=== PATIENT | female | born 1935 | race Caucasian/White ===

== ENCOUNTER 2017-08-07 15:13 | Observation (INO) | payer MEDICARE, SELFPAY ==
[2017-08-07] VITALS (9 sets, daily range): BP systolic 100–155; BP diastolic 56–88; PULSE 99–134; RESP 16–24; TEMP 36.8; O2SAT 95–100; BMI 36.9
--- NOTE | 2017-08-07 15:25 | DI.RAD.S_ITS ---
PROCEDURE: XR CHEST 1V INDICATIONS: New onset rapid AFib/chest pain TECHNIQUE: One view of the chest was acquired. COMPARISON: None. FINDINGS: Surgical changes and devices: None. Lungs and pleura: No pleural effusions or pneumothorax. Lungs are clear. Mediastinum: Mediastinal contours appear normal. Heart size is normal. Aortic calcifications. Bones and chest wall: No suspicious bony lesions. Overlying soft tissues appear unremarkable. IMPRESSION: 1. No cardiac enlargement. No congestive failure. Dictated by: Jaylen Paredes M.D. on 08/07/2017 at 15:57 Approved by: Jaylen Paredes M.D. on 08/07/2017 at 15:58
[2017-08-07] MEDS: SODIUM CHLORIDE 0.9% 1,000 ML 150 ML IV ×2 (15:34→18:41)
[2017-08-07] MEDS: dilTIAZem 25 MG/5 ML SDV 10 MG IV (15:35)
--- NOTE | 2017-08-07 15:37 | PC.NURSE ---
pt reports chronic sob from pulm fibrosis. no increased in SOB.
[2017-08-07 16:01] LABS: Add Manual Diff / Slide Review NO; Basophils Percent Auto 0.7 % (0-2); Eosinophils Percent Auto 1.3 % (2-4); Hemoglobin 13.5 g/dL (12.0-16.0); Lymphocytes Percent Auto 22.9 % (25-40); Mean Corpuscular HGB Conc 33.6 % (30-36); Mean Corpuscular Hemoglobin 28.5 PG (26-34); Mean Corpuscular Volume 84.8 fL (80-100); Monocytes Percent Auto 8.9 % (3-14); Neutrophils Absolute Auto 7200 /uL (3000-5900); Neutrophils Percent Auto 66.2 % (50-75); Platelet Count 361 X10^3/uL (150-400); Red Blood Cell Count 4.72 X10^6/uL (4.0-5.2); Red Cell Distribution Width 13.9 % (11.6-14.8); White Blood Cell Count 10.8 X10^3/uL (4.5-11.0)
--- NOTE | 2017-08-07 16:04 | ED.ARRPALP ---
HPI - Arrhythmia/Palpitations General Chief Complaint: Arrhythmia/Palpitations Stated Complaint: NOT ABLE TO SEE WELL FAST HEART RATE Time Seen by Provider: 08/07/17 15:16 Source: patient and family Mode of arrival: ambulatory Limitations: no limitations History of Present Illness HPI narrative: Patient presents to the emergency department today with a chief complaint of new onset AFib with RVR as recognized by the outpatient walk-in clinic. She is new to the area and has run out of her chronic pain medication, she has pain in her bilateral lower extremities and has been decreasing her dose of oxycodone. Today she went in to see if she can get her prescription filled and was complaining of some blurred vision. On physical exam the provider noted a rapid irregular heart rate and EKG proved atrial fibrillation with RVR. The patient carries no diagnosis of atrial fibrillation. She is unsure when this started and denies any chest pain, shortness of breath or palpitations. MD complaint: rapid heart beat, palpitations and irregular heart beat Onset (ago): unknown Related Data Home Medications Medication Instructions Recorded Confirmed albuterol sulfate [ProAir HFA] 2 puff INHALATION Q6H 08/07/17 08/07/17 atorvastatin 80 mg PO DAILY 08/07/17 08/07/17 doxepin 100 mg PO BEDTIME 08/07/17 08/07/17 escitalopram oxalate 20 mg PO DAILY 08/07/17 08/07/17 fluticasone [Flovent HFA] 2 puff INHALATION BID 08/07/17 08/07/17 gabapentin 600 mg PO TID 08/07/17 08/07/17 hydrocodone-acetaminophen 1 tab PO Q6H PRN 08/07/17 08/07/17 lubiprostone [Amitiza] 24 mcg PO BID 08/07/17 08/07/17 metoprolol tartrate 25 mg PO BID 08/07/17 08/07/17 omeprazole magnesium [Prilosec OTC] 20 mg PO BID 08/07/17 08/07/17 potassium bicarb-citric acid 25 meq PO DAILY 08/07/17 08/07/17 [Klor-Con/EF] triamterene-hydrochlorothiazid 1 tab PO DAILY 08/07/17 08/07/17 umeclidinium-vilanterol [Anoro 1 inh INHALATION Q24H 08/07/17 08/07/17 Ellipta] zolpidem 5 mg PO BEDTIME 08/07/17 08/07/17 Allergies Allergy/AdvReac Type Severity Reaction Status Date / Time Sulfa (Sulfonamide Allergy Intermediate Rash Verified 08/07/17 15:26 Antibiotics) Review of Systems Review of Systems All systems reviewed & are unremarkable except as noted in HPI and below Constitutional Denies chills, Denies fever(s), Denies lethargy and Denies weakness Eyes Reports change in vision Comments: Blurred vision had improved prior to her arrival ENT Ears, Nose, Mouth, and Throat: Denies change in voice, Denies neck pain and Denies sore throat Cardiovascular Denies chest pain, Denies irregular heart rhythm, Denies lightheadedness, Denies palpitations, Denies dyspnea, Denies dyspnea on exertion and Denies orthopnea Respiratory Denies cough, Denies dyspnea, Denies dyspnea on exertion and Denies wheezing Gastrointestinal Gastrointestinal: Denies abdominal pain, Denies change in bowel habits, Denies diarrhea, Denies nausea and Denies vomiting Genitourinary Denies hematuria, Denies flank pain, Denies urinary incontinence and Denies urinary urgency Musculoskeletal Denies neck pain Comments: Bilateral lower extremity pain Integumentary/Breasts Denies pruritus, Denies erythema, Denies rash and Denies wounds Neurologic Denies confusion, Reports other visual disturbances and Denies weakness Psychiatric Denies anxiety, Denies confusion, Denies depression, Denies homicidal ideation and Denies suicidal ideation Endocrine Denies palpitations Hematologic/Lymphatic Denies easy bruising Allergic/Immunologic Denies wheezing [facility], [facility] Social History Smoking Status: Never smoker Exam Const General: cooperative and well developed Nutritional Appearance: well nourished Orientation: alert, awake, oriented x3 and not confused [facility] Head: normocephalic and atraumatic Ears: external ears normal and TM's normal bilaterally Nose: external nose normal and No nasal discharge Face and sinus: sinuses nontender, face symmetric, no sinus tenderness and No dry mucous membranes Mouth: oral mucosae normal and moist mucous membranes Teeth and gingiva: dentition normal Throat: tonsils normal and uvula midline Neck Neck: normal visual inspection, trachea midline, No lymphadenopathy, No midline deformity and No JVD Lymphatic: No lymphedema Resp Effort & Inspection: normal respiratory effort, able to speak in complete sentences, no respiratory distress and no use of accessory muscles Auscultation: clear to auscultation bilaterally, no rales, no rhonchi and no wheezes Cardio Rate: tachycardic Rhythm: abnormal rhythm GI Inspection: non-distended Palpation: soft, no hepatosplenomegaly, No guarding, No pulsatile mass and No tender Auscultation: normal bowel sounds Back/Spine/Pelvis Back: No CVA tenderness Cervical Spine: cervical ROM normal and No pain with cervical ROM Thoracic/Lumbar Spine: thoracic and lumbar spine normal to inspection Skin General: no rashes or lesions noted, No jaundice and No petechiae Neuro General: alert, awake and oriented x3 Cranial Nerves: CN's II-XI intact bilaterally Cognition: normal cognition Speech: speech normal Gait: normal gait Motor: muscle tone normal throughout Sensory Exam: no sensory deficits noted Coordination: [id number] test normal Psych Appearance: well kempt Mental Status: mental status grossly normal Attitude: cooperative Thought Content: normal and suicidality Judgment: judgment good MDM - Arrhythmia/Palpitations Differential Diagnosis Differential diagnosis: Likely palpitations, artial fibrillation and artial flutter Medical Records Attestation: I reviewed the patient's medical records. Lab Data Attestation: I reviewed the patient's lab results. Result diagrams: 08/07/17 Unknown 08/07/17 Unknown Lab Results 08/07/17 08/07/17 08/07/17 Range/Units Unknown Unknown Unknown WBC 10.8 (4.5-11.0) X10^3/uL RBC 4.72 (4.0-5.2) X10^6/uL Hgb 13.5 (12.0-16.0) g/dL Hct 40.0 (36-46) % MCV 84.8 (80-100) fL MCH 28.5 (26-34) PG MCHC 33.6 (30-36) % RDW 13.9 (11.6-14.8) % Plt Count 361 (150-400) X10^3/uL Neut % (Auto) 66.2 (50-75) % Lymph % (Auto) 22.9 L (25-40) % [place] % (Auto) 8.9 (3-14) % Eos % (Auto) 1.3 L (2-4) % Baso % (Auto) 0.7 (0-2) % Neut # (Auto) 7200 H (8817-5047) /uL Sodium 136 L (137-145) mmol/L Potassium 3.4 (3.4-5.1) mmol/L Chloride 98.0 (98-107) mmol/L Carbon Dioxide 25.0 (22-32) mmol/L BUN 12.0 (7-17) mg/dL Creatinine 1.00 (0.52-1.04) mg/dL Estimated GFR 53.5 L (>60) mL/min BUN/Creatinine Ratio 12.0 (6-22) Glucose 116 H (80-110) mg/dL Calcium 9.7 (8.4-10.2) mg/dL Magnesium 2.1 (1.6-2.3) mg/dL Total Bilirubin 0.6 (0.2-1.3) mg/dL AST 43 H (14-36) IU/L ALT 29 (9-52) IU/L Alkaline Phosphatase 103 (38-126) U/L Total Creatine Kinase 65 (30-135) U/L Troponin I 0.019 (0.01-0.034) ng/mL Total Protein 7.8 (6.3-8.2) g/dL Albumin 4.3 (3.5-5.0) g/dL Globulin 3.5 (1.7-4.1) g/dL Albumin/Globulin Ratio 1.2 (1.0-2.8) Lipase 50 (23-300) U/L TSH 1.85 (0.47-4.68) uIU/mL Thyroxine (T4) 6.35 (5.5-11.0) ug/dL Imaging Data Chest x-ray: Radiologist's impression: PROCEDURE: XR CHEST 1V INDICATIONS: New onset rapid AFib/chest pain TECHNIQUE: One view of the chest was acquired. COMPARISON: None. FINDINGS: Surgical changes and devices: None. Lungs and pleura: No pleural effusions or pneumothorax. Lungs are clear. Mediastinum: Mediastinal contours appear normal. Heart size is normal. Aortic calcifications. Bones and chest wall: No suspicious bony lesions. Overlying soft tissues appear unremarkable. IMPRESSION: 1. No cardiac enlargement. No congestive failure. Dictated by: Jaylen Paredes M.D. on 08/07/2017 at 15:57 Approved by: Jaylen Paredes M.D. on 08/07/2017 at 15:58 ECG Data Attestation: I personally reviewed and interpreted this ECG as follows: Prior ECG tracings: not available for review Interpretation: Atrial fibrillation with rapid rate and occasional PVCs. Rate 122. No ST segmental or T-wave abnormalities consistent with ischemia Course Orders Ordered: ED Orders 08/07/17 15:25 XR chest 1V Stat EKG-12 Lead Stat Sodium Chloride (Normal Saline 0.9%) 1,000 mls @ 150 mls/hr IV CONT JACQUELINE Last Infusion: 08/07/17 17:40 Dose: 150 mls/hr Admin: 08/07/17 15:34 Dose: 150 mls/hr Diltiazem HCl 125 mg/ Dextrose 125 mls @ 5 mls/hr IV Q25H JACQUELINE Discontinued Medications Diltiazem HCl (Cardizem) 10 mg IV NOW ONE Stop: 08/07/17 15:27 Last Admin: 08/07/17 15:35 Dose: 10 mg Diltiazem HCl (Cardizem Cd) 120 mg PO NOW ONE Stop: 08/07/17 17:01 Last Admin: 08/07/17 17:12 Dose: 120 mg Enoxaparin Sodium (Lovenox) 40 mg SUBCUT NOW ONE Stop: 08/07/17 17:52 Reevaluation(s) Reevaluation #1: Patient was given Cardizem 10 mg IV push in had brief resolution of her rapid rate, after her about 20-25 min she started creeping back to the 130s. Oral cardizem had been ordered and on board for 30 minutes but her HR continued to rise and she began to feel unwell. Cardizem drip and decision to admit. Dr. Chen happy to accept. Patient has high CHADsVAsc score and no local physician, she is a poor candidate for discharge. Lovenox ordered. Last Vital Signs Pulse 104 H 08/07/17 16:45 Resp 18 08/07/17 16:45 BP 106/88 H 08/07/17 16:45 Pulse Ox 98 08/07/17 16:45 Discharge Plan Departure Patient Disposition: Admitted As Inpatient Clinical Impression: Rapid atrial fibrillation Admit Date/Time: 08/07/17 17:54 Admit Provider: Carissa Chen
[2017-08-07] MEDS: dilTIAZem CD 120 MG CAP PO (17:12)
--- NOTE | 2017-08-07 17:37 | PC.NURSE ---
IV site on L FA infiltrated. Stopped the infusion and IVL dc'd and ice pack applied.
[2017-08-07 17:48] LABS: Alanine Aminotransferase 29 IU/L (9-52); Albumin 4.3 g/dL (3.5-5.0); Albumin Globulin Ratio 1.2 (1.0-2.8); Alkaline Phosphatase 103 U/L (38-126); Aspartate Aminotransferase 43 IU/L (14-36); Bilirubin Total 0.6 mg/dL (0.2-1.3); Calcium 9.7 mg/dL (8.4-10.2); Creatine Kinase 65 U/L (30-135); Estimated Glomerular Filt Rate 53.5 mL/min (>60); Globulin 3.5 g/dL (1.7-4.1); Glucose 116 mg/dL (80-110); HEMOLYSIS 18 (0-50); Lipase 50 U/L (23-300); Magnesium 2.1 mg/dL (1.6-2.3); Potassium 3.4 mmol/L (3.4-5.1); Sodium 136 mmol/L (137-145); Total Protein 7.8 g/dL (6.3-8.2)
[2017-08-07 17:59] LABS: Troponin I 0.019 ng/mL (0.01-0.034)
--- NOTE | 2017-08-07 18:10 | PC.NURSE ---
Attempted IV start on R arm x2 but unsuccessful.
[2017-08-07 18:11] LABS: T4 Total Thyroxine 6.35 ug/dL (5.5-11.0)
[2017-08-07 18:24] LABS: Thyroid Stimulating Hormone 1.85 uIU/mL (0.47-4.68)
[2017-08-07] MEDS: dilTIAZem 125 MG in DEXTROSE 5 % IN WATER 100 ML IV ×2 (18:40→19:30)
[2017-08-07] MEDS: ENOXAPARIN 40 MG/0.4 ML SYRINGE SUBCUT (18:40)
--- NOTE | 2017-08-07 18:41 | PC.NURSE ---
starting IV Diltiazem after obtaining IV access and IVF of NS at 150ml/hr.
--- NOTE | 2017-08-07 19:03 | PC.NURSE ---
PT transferring with infusing IVF of NS and IV diltiazem drip via IV pump. Pt in NAD at this time and HR ini 110-120's.
--- NOTE | 2017-08-07 19:38 | PC.NURSE ---
[birth year]19- patient received from ER, awake, alert- denies pain. New onset afib- rvr. On Diltiazem infusion @ 5mg/hr- hr 110's. Patient states she has pulmonary fibrosis- short of breath with exertion. States she just moved to this area - MD appt today- noticed visual changes- hr elevated and irregular during appt. sent to ER>
--- NOTE | 2017-08-07 19:45 | CM.MNRNOTE ---
1920- 81yo received from ER with new onset afib-rvr. Patient new to area- at md appt today- c.o visual changes- irregular/tachycardic hr noted- sent to ER. Currently on Diltiazem infusion @ 5mg/hr- hr in the 110's- rate increased to 7.5 mg/hr. bp 140/82. Denies pain- short of breath on exertion- states she has pulmonary fibrosis. chief complaint- hungry. Given light meal.
--- NOTE | 2017-08-07 22:04 | PM.HP.1 ---
History of Present Illness Chief complaint: Rapid Atrial Fibrillation Narrative: SURAJ WEBER is a 81 year old female who has just moved from [facility] to [place] about 10 days ago. She has arthritis in her knees. She recently ran out of her medications. She presented to the [facility] clinic trying to get some pain medications. She was found to have atrial fibrillation with rapid ventricular response. She was subsequently directed to the [facility] Emergency Room. She received IV diltiazem and was started on diltiazem drip. She also received therapeutic dose of Lovenox for anticoagulation. She was subsequently admitted to the intensive care unit. Patient denies chest pain or palpitation. She has been feeling weak in the past 2 days. [facility] Medical History Chronic pain (Acute) Hyperlipidemia (Acute) Hypertension (Acute) Impaired fasting glucose (Acute) Pulmonary fibrosis (Acute) Stroke (Acute) Social History lives independently: Yes marital status: number of children: 2 caregiver/support person: Yes housing: apartment other: Denies alcohol drinking or cigarette smoking. Her son of overdose 1 w Smoking Status: Former smoker Meds Home Medications Medication Instructions Recorded Confirmed Type albuterol sulfate [ProAir HFA] 2 puff INHALATION Q6H 08/07/17 08/07/17 History atorvastatin 80 mg PO DAILY 08/07/17 08/07/17 History doxepin 100 mg PO BEDTIME 08/07/17 08/07/17 History escitalopram oxalate 20 mg PO DAILY 08/07/17 08/07/17 History fluticasone [Flovent HFA] 2 puff INHALATION BID 08/07/17 08/07/17 History gabapentin 600 mg PO TID 08/07/17 08/07/17 History hydrocodone-acetaminophen 1 tab PO Q6H PRN 08/07/17 08/07/17 History lubiprostone [Amitiza] 24 mcg PO BID 08/07/17 08/07/17 History metoprolol tartrate 25 mg PO BID 08/07/17 08/07/17 History omeprazole magnesium [Prilosec OTC] 20 mg PO BID 08/07/17 08/07/17 History potassium bicarb-citric acid 25 meq PO DAILY 08/07/17 08/07/17 History [Klor-Con/EF] triamterene-hydrochlorothiazid 1 tab PO DAILY 08/07/17 08/07/17 History umeclidinium-vilanterol [Anoro 1 inh INHALATION Q24H 08/07/17 08/07/17 History Ellipta] zolpidem 5 mg PO BEDTIME 08/07/17 08/07/17 History Generic Name Dose Route Start Last Admin Trade Name Freq PRN Reason Stop Dose Admin Hydrocodone Bitart/Acetaminophen 1 tab 08/07/17 21:55 Spencer 5/325 PO Q6H PRN Pain, Moderate Atorvastatin Calcium 80 mg 08/08/17 09:00 Lipitor PO DAILY [facility] Diltiazem HCl 180 mg 08/08/17 09:00 Cardizem Cd PO DAILY [facility] Doxepin HCl 100 mg 08/07/17 22:00 Sinequan PO BEDTIME JACQUELINE Escitalopram Oxalate 20 mg 08/08/17 09:00 Lexapro PO DAILY [facility] Fluticasone Propionate 2 puff 08/07/17 22:00 Flovent Hfa INH BID JACQUELINE Gabapentin 600 mg 08/07/17 22:00 Neurontin PO TID JACQUELINE Sodium Chloride 1,000 mls @ 150 mls/hr 08/07/17 15:30 08/07/17 18:41 Normal Saline 0.9% IV 150 mls/hr CONT JACQUELINE Administration Diltiazem HCl 125 mg/ Dextrose 125 mls @ 5 mls/hr 08/07/17 18:00 08/07/17 18:40 IV 5 mls/hr Q25H JACQUELINE Administration Diltiazem HCl 125 mg/ Dextrose 125 mls @ 5 mls/hr 08/07/17 19:30 IV TITRATE JACQUELINE Protocol 5 MG/HR Metoprolol Tartrate 25 mg 08/07/17 22:00 Lopressor PO BID JACQUELINE Non-Formulary Medication 24 mcg 08/07/17 22:00 Lubiprostone [Amitiza] PO BID JACQUELINE Non-Formulary Medication 25 meq 08/08/17 09:00 Potassium Bicarb-Citric Acid [Klor-Con/Ef] PO DAILY JACQUELINE Pantoprazole Sodium 20 mg 08/07/17 22:15 Protonix PO BID JACQUELINE Triamterene/HCTZ 1 tab 08/08/17 09:00 Maxide 37.5/25 PO DAILY [facility] Umeclidinium/Vilanterol 1 puff 08/07/17 22:00 Anoro Ellipta 62.5-25 Mcg Inh INH Q24H JACQUELINE Zolpidem Tartrate 5 mg 08/07/17 22:00 Ambien PO BEDTIME JACQUELINE Allergies Allergy/AdvReac Type Severity Reaction Status Date / Time Sulfa (Sulfonamide Allergy Intermediate Rash Verified 08/07/17 15:26 Antibiotics) Review of Systems Constitutional Comments: No fever chills or sweats Cardiovascular Comments: Denies chest pain or palpitation Respiratory Comments: She does have chronic shortness of breath with dyspnea with minimal physical exertion Gastrointestinal Comments: Denies abdominal pain Genitourinary Comments: No dysuria Musculoskeletal Comments: Chronic bilateral knee pain Exam Vital Signs (past 8 hours): Vital Signs - 8 hr 08/07/17 15:21 08/07/17 15:36 08/07/17 15:40 Temperature Pulse Rate 130 H 134 H 110 H Respiratory Rate 24 16 24 Blood Pressure 123/85 H Blood Pressure [Right Arm] 100/56 L Pulse Oximetry 95 95 08/07/17 16:15 08/07/17 16:45 08/07/17 18:30 Temperature Pulse Rate 99 H 104 H 121 H Respiratory Rate 18 18 20 Blood Pressure Blood Pressure [Right Arm] 102/67 106/88 H 121/79 H Pulse Oximetry 98 100 08/07/17 19:20 08/07/17 20:07 Temperature 98.2 F 98.3 F Pulse Rate 130 H 110 H Respiratory Rate 22 20 Blood Pressure 130/81 H 155/88 H Blood Pressure [Right Arm] Pulse Oximetry 98 98 Pulse Oximetry 98 Oxygen Delivery Method Room Air Oxygen Flow Rate 0 Narrative Exam Narrative: GENERAL: Obese elderly woman in no acute distress. HEENT: Head normocephalic, atraumatic. Eyes pupils equal round NECK: Supple, no JVD, CHEST: Breath sounds equal bilaterally, no wheezes rales or rhonchi. CARDIAC: Irregularly irregular rhythm, heart rate in the 90s without murmurs, rubs or gallops. ABDOMEN: Soft, nontender. Normoactive bowel sounds all 4 quadrants. No guarding or rebound. EXTREMITIES: Normal range of motion, no clubbing or edema. NEUROLOGICAL: Alert and oriented; Normal muscle strength. SKIN: Warm, dry, no petechiae, no rashes or lesions. Objective Labs Result Diagrams: 08/07/17 Unknown 08/07/17 Unknown Labs: Laboratory Results - last 24 hr 08/07/17 08/07/17 08/07/17 Unknown Unknown Unknown WBC 10.8 RBC 4.72 Hgb 13.5 Hct 40.0 MCV 84.8 MCH 28.5 MCHC 33.6 RDW 13.9 Plt Count 361 Neut % (Auto) 66.2 Lymph % (Auto) 22.9 L [place] % (Auto) 8.9 Eos % (Auto) 1.3 L Baso % (Auto) 0.7 Neut # (Auto) 7200 H Sodium 136 L Potassium 3.4 Chloride 98.0 Carbon Dioxide 25.0 BUN 12.0 Creatinine 1.00 Estimated GFR 53.5 L BUN/Creatinine Ratio 12.0 Glucose 116 H Calcium 9.7 Magnesium 2.1 Total Bilirubin 0.6 AST 43 H ALT 29 Alkaline Phosphatase 103 Total Creatine Kinase 65 Troponin I 0.019 Total Protein 7.8 Albumin 4.3 Globulin 3.5 Albumin/Globulin Ratio 1.2 Lipase 50 TSH 1.85 Thyroxine (T4) 6.35 Assessment & Plan Plan: Plan: 1. Atrial fibrillation with rapid ventricular response, new diagnosis. She is on diltiazem for rate control. Heart rate is currently in the 90s. We will start her on oral diltiazem. Continue metoprolol. Start Coumadin for anticoagulation. We will also check her thyroid function to rule out hyperthyroidism as potential causes of AFib. We will check serial troponin to rule out [place]. 2. Hypertension: Continue metoprolol 25 mg twice a day, Maxzide, start diltiazem. We will monitor her blood pressure readings. We may need to discontinue Maxzide if her blood pressure gets low. 3. Hyperlipidemia: Continue atorvastatin 80 mg once a day. 4. Morbid obesity, BMI greater than 30. She needs lifestyle modifications 5. Chronic pain: Continue Vicodin and gabapentin for pain control 6. Code status: Do not resuscitate. Code status was discussed with patient herself. Quality VTE Deep Vein Thrombosis/Pulmonary Embolism Present on Admission: No
--- NOTE | 2017-08-07 22:38 | P.HP_ITS ---
History of Present Illness Chief complaint: Rapid Atrial Fibrillation Narrative: SURAJ WEBER is a 81 year old female who has just moved from [facility] to [place] about 10 days ago. She has arthritis in her knees. She recently ran out of her medications. She presented to the [facility] clinic trying to get some pain medications. She was found to have atrial fibrillation with rapid ventricular response. She was subsequently directed to the [facility] Emergency Room. She received IV diltiazem and was started on diltiazem drip. She also received therapeutic dose of Lovenox for anticoagulation. She was subsequently admitted to the intensive care unit. Patient denies chest pain or palpitation. She has been feeling weak in the past 2 days. [facility] Medical History Chronic pain (Acute) Hyperlipidemia (Acute) Hypertension (Acute) Impaired fasting glucose (Acute) Pulmonary fibrosis (Acute) Stroke (Acute) Social History lives independently: Yes marital status: number of children: 2 caregiver/support person: Yes housing: apartment other: Denies alcohol drinking or cigarette smoking. Her son of overdose 1 w Smoking Status: Former smoker Meds Home Medications Medication Instructions Recorded Confirmed Type albuterol sulfate [ProAir HFA] 2 puff INHALATION Q6H 08/07/17 08/07/17 History atorvastatin 80 mg PO DAILY 08/07/17 08/07/17 History doxepin 100 mg PO BEDTIME 08/07/17 08/07/17 History escitalopram oxalate 20 mg PO DAILY 08/07/17 08/07/17 History fluticasone [Flovent HFA] 2 puff INHALATION BID 08/07/17 08/07/17 History gabapentin 600 mg PO TID 08/07/17 08/07/17 History hydrocodone-acetaminophen 1 tab PO Q6H PRN 08/07/17 08/07/17 History lubiprostone [Amitiza] 24 mcg PO BID 08/07/17 08/07/17 History metoprolol tartrate 25 mg PO BID 08/07/17 08/07/17 History omeprazole magnesium [Prilosec OTC] 20 mg PO BID 08/07/17 08/07/17 History potassium bicarb-citric acid 25 meq PO DAILY 08/07/17 08/07/17 History [Klor-Con/EF] triamterene-hydrochlorothiazid 1 tab PO DAILY 08/07/17 08/07/17 History umeclidinium-vilanterol [Anoro 1 inh INHALATION Q24H 08/07/17 08/07/17 History Ellipta] zolpidem 5 mg PO BEDTIME 08/07/17 08/07/17 History Generic Name Dose Route Start Last Admin Trade Name Freq PRN Reason Stop Dose Admin Hydrocodone Bitart/Acetaminophen 1 tab 08/07/17 21:55 [place] 5/325 PO Q6H PRN Pain, Moderate Atorvastatin Calcium 80 mg 08/08/17 09:00 Lipitor PO DAILY [facility] Diltiazem HCl 180 mg 08/08/17 09:00 Cardizem Cd PO DAILY [facility] Doxepin HCl 100 mg 08/07/17 22:00 Sinequan PO BEDTIME JACQUELINE Escitalopram Oxalate 20 mg 08/08/17 09:00 Lexapro PO DAILY [facility] Fluticasone Propionate 2 puff 08/07/17 22:00 Flovent Hfa INH BID JACQUELINE Gabapentin 600 mg 08/07/17 22:00 Neurontin PO TID JACQUELINE Sodium Chloride 1,000 mls @ 150 mls/hr 08/07/17 15:30 08/07/17 18:41 Normal Saline 0.9% IV 150 mls/hr CONT JACQUELINE Administration Diltiazem HCl 125 mg/ Dextrose 125 mls @ 5 mls/hr 08/07/17 18:00 08/07/17 18: 40 IV 5 mls/hr Q25H JACQUELINE Administration Diltiazem HCl 125 mg/ Dextrose 125 mls @ 5 mls/hr 08/07/17 19:30 IV TITRATE JACQUELINE Protocol 5 MG/HR Metoprolol Tartrate 25 mg 08/07/17 22:00 Lopressor PO BID JACQUELINE Non-Formulary Medication 24 mcg 08/07/17 22:00 Lubiprostone [Amitiza] PO BID JACQUELINE Non-Formulary Medication 25 meq 08/08/17 09:00 Potassium Bicarb-Citric Acid [Klor-Con/Ef] PO DAILY JACQUELINE Pantoprazole Sodium 20 mg 08/07/17 22:15 Protonix PO BID JACQUELINE Triamterene/HCTZ 1 tab 08/08/17 09:00 Maxide 37.5/25 PO DAILY [facility] Umeclidinium/Vilanterol 1 puff 08/07/17 22:00 Anoro Ellipta 62.5-25 Mcg Inh INH Q24H JACQUELINE Zolpidem Tartrate 5 mg 08/07/17 22:00 Ambien PO BEDTIME JACQUELINE Allergies Allergy/AdvReac Type Severity Reaction Status Date / Time Sulfa (Sulfonamide Allergy Intermediate Rash Verified 08/07/17 15:26 Antibiotics) Review of Systems Constitutional Comments: No fever chills or sweats Cardiovascular Comments: Denies chest pain or palpitation Respiratory Comments: She does have chronic shortness of breath with dyspnea with minimal physical exertion Gastrointestinal Comments: Denies abdominal pain Genitourinary Comments: No dysuria Musculoskeletal Comments: Chronic bilateral knee pain Exam Vital Signs (past 8 hours): Vital Signs - 8 hr 3 08/07/17 15:21 08/07/17 15:36 08/07/17 15:40 Temperature Pulse Rate 130 H 134 H 110 H Respiratory Rate 24 16 24 Blood Pressure 123/85 H Blood Pressure [Right Arm] 100/56 L Pulse Oximetry 95 95 3 08/07/17 16:15 08/07/17 16:45 08/07/17 18:30 Temperature Pulse Rate 99 H 104 H 121 H Respiratory Rate 18 18 20 Blood Pressure Blood Pressure [Right Arm] 102/67 106/88 H 121/79 H Pulse Oximetry 98 100 3 08/07/17 19:20 08/07/17 20:07 Temperature 98.2 F 98.3 F Pulse Rate 130 H 110 H Respiratory Rate 22 20 Blood Pressure 130/81 H 155/88 H Blood Pressure [Right Arm] Pulse Oximetry 98 98 Pulse Oximetry 98 Oxygen Delivery Method Room Air Oxygen Flow Rate 0 Narrative Exam Narrative: GENERAL: Obese elderly woman in no acute distress. HEENT: Head normocephalic, atraumatic. Eyes pupils equal round NECK: Supple, no JVD, CHEST: Breath sounds equal bilaterally, no wheezes rales or rhonchi. CARDIAC: Irregularly irregular rhythm, heart rate in the 90s without murmurs, rubs or gallops. ABDOMEN: Soft, nontender. Normoactive bowel sounds all 4 quadrants. No guarding or rebound. EXTREMITIES: Normal range of motion, no clubbing or edema. NEUROLOGICAL: Alert and oriented; Normal muscle strength. SKIN: Warm, dry, no petechiae, no rashes or lesions. Objective Labs Result Diagrams: 08/07/17 Unknown 08/07/17 Unknown Labs: Laboratory Results - last 24 hr 08/07/17 08/07/17 08/07/17 Unknown Unknown Unknown WBC 10.8 RBC 4.72 Hgb 13.5 Hct 40.0 MCV 84.8 MCH 28.5 MCHC 33.6 RDW 13.9 Plt Count 361 Neut % (Auto) 66.2 Lymph % (Auto) 22.9 L [place] % (Auto) 8.9 Eos % (Auto) 1.3 L Baso % (Auto) 0.7 Neut # (Auto) 7200 H Sodium 136 L Potassium 3.4 Chloride 98.0 Carbon Dioxide 25.0 BUN 12.0 Creatinine 1.00 Estimated GFR 53.5 L BUN/Creatinine Ratio 12.0 Glucose 116 H Calcium 9.7 Magnesium 2.1 Total Bilirubin 0.6 AST 43 H ALT 29 Alkaline Phosphatase 103 Total Creatine Kinase 65 Troponin I 0.019 Total Protein 7.8 Albumin 4.3 Globulin 3.5 Albumin/Globulin Ratio 1.2 Lipase 50 TSH 1.85 Thyroxine (T4) 6.35 Assessment & Plan Plan: Plan: 1. Atrial fibrillation with rapid ventricular response, new diagnosis. She is on diltiazem for rate control. Heart rate is currently in the 90s. We will start her on oral diltiazem. Continue metoprolol. Start Coumadin for anticoagulation. We will also check her thyroid function to rule out hyperthyroidism as potential causes of AFib. We will check serial troponin to rule out MO. 2. Hypertension: Continue metoprolol 25 mg twice a day, Maxzide, start diltiazem. We will monitor her blood pressure readings. We may need to discontinue Maxzide if her blood pressure gets low. 3. Hyperlipidemia: Continue atorvastatin 80 mg once a day. 4. Morbid obesity, BMI greater than 30. She needs lifestyle modifications 5. Chronic pain: Continue Vicodin and gabapentin for pain control 6. Code status: Do not resuscitate. Code status was discussed with patient herself. Quality VTE Deep Vein Thrombosis/Pulmonary Embolism Present on Admission: No
[2017-08-07 22:42] LABS: MRSA (Nasal) PCR NEGATIVE for MRSA (Negative)
[2017-08-08] VITALS (9 sets, daily range): BP systolic 105–156; BP diastolic 47–79; PULSE 71–104; RESP 12–27; TEMP 36.5–36.8; O2SAT 95–97
[2017-08-08] MEDS: GABAPENTIN 300 MG CAPSULE 600 MG PO (00:40)
[2017-08-08] MEDS: PANTOPRAZOLE 20 MG TABLET PO ×2 (00:41→08:32)
[2017-08-08] MEDS: METOPROLOL 25 MG TABLET PO ×2 (00:41→08:32)
[2017-08-08] MEDS: DOXEPIN 10 MG CAPSULE 100 MG PO (00:43)
[2017-08-08] MEDS: WARFARIN 5 MG TABLET PO (00:54)
[2017-08-08] MEDS: FLUTICASONE 220MCG HFA 120 PUFF INH ×2 (00:55→07:43)
[2017-08-08] MEDS: HYDROCODONE/ACET 5/325 TABLET 1 TAB PO (01:01)
[2017-08-08] MEDS: ZOLPIDEM 5 MG TABLET PO (02:16)
[2017-08-08 05:34] LABS: INR 1.3 (0.9-1.3)
[2017-08-08 05:49] LABS: Troponin I 0.018 ng/mL (0.01-0.034)
[2017-08-08 06:23] LABS: TSH w/ Reflex to FT4 3.04 uIU/mL (0.47-4.68)
[2017-08-08] MEDS: GABAPENTIN 600 MG TABLET PO (08:32)
[2017-08-08] MEDS: ESCITALOPRAM 10 MG TABLET 20 MG PO (08:32)
[2017-08-08] MEDS: dilTIAZem CD 180 MG CAP PO (08:32)
[2017-08-08] MEDS: POTASSIUM CHLORIDE 20 MEQ/15 ML UDC 25 MEQ PO (09:16)
--- NOTE | 2017-08-08 09:59 | PM.DS.1 ---
History of Present Illness Chief complaint: Rapid Atrial Fibrillation Narrative: Tali Burton is a 81 year old female who has just moved from [facility] to [place] about 10 days ago. She has arthritis in her knees. She recently ran out of her medications. She presented to the [facility] clinic trying to get some pain medications. She was found to have atrial fibrillation with rapid ventricular response. She was subsequently directed to the [facility] Emergency Room. She received IV diltiazem and was started on diltiazem drip. She also received therapeutic dose of Lovenox for anticoagulation. She was subsequently admitted to the intensive care unit. Patient denies chest pain or palpitation. She has been feeling weak in the past 2 days. Discharge Providers Date of admission: 08/07/17 17:54 Primary care physician: She is going to establish primary care with Carissa chen at [facility] Discharge provider: Carissa Chen MD Discharge Date: 08/08/17 Summary Hospital Course: 1. Atrial fibrillation with rapid ventricular response: Patient was treated with diltiazem drip. She was also started on oral diltiazem in addition to metoprolol. Her heart rate is much better controlled. She was able to wean off diltiazem the next morning. Her thyroid function tests were normal. Her troponin was negative. She received 1 time dose of therapeutic Lovenox at the ER. She was also started on Coumadin for anticoagulation. She will continue full-dose aspirin until she is therapeutic on Coumadin. She will have her INR rechecked in about 3 days at [facility] or [facility]. Follow up with Dr. Carissa chen at [facility] within 7 days. 2. Hypertension 3. Hyperlipidemia 4. Chronic pain, on narcotics pain medication for pain control 5. Morbid obesity: BMI 37.5 Status at Discharge Functional status at discharge: independent ambulation Overall status at discharge: patient is back to baseline Time Spent with Patient Total time spent providing and/or coordinating discharge services: 40 min Greater than 30 minutes Specific discharge activities: Establish primary care at [facility] with Dr. Carissa Chen. Recheck INR in 3 days. Exam Vital Signs (past 8 hours): Vital Signs - 8 hr 08/08/17 02:00 08/08/17 04:40 08/08/17 05:06 Temperature 97.9 F 97.7 F Pulse Rate 71 71 104 H Respiratory Rate 17 16 15 Blood Pressure 119/47 L 105/55 L 105/55 L Pulse Oximetry 95 95 97 08/08/17 05:11 08/08/17 07:47 08/08/17 08:04 Temperature 97.9 F 98.2 F Pulse Rate 78 73 80 Respiratory Rate 14 12 15 Blood Pressure 105/55 L 130/79 H Pulse Oximetry 95 96 95 Pulse Oximetry 95 Oxygen Delivery Method Room Air Oxygen Flow Rate 0 Objective Labs Result Diagrams: 08/07/17 Unknown 08/07/17 Unknown Labs: Laboratory Results - last 24 hr 08/07/17 08/07/17 08/07/17 19:40 Unknown Unknown WBC 10.8 RBC 4.72 Hgb 13.5 Hct 40.0 MCV 84.8 MCH 28.5 MCHC 33.6 RDW 13.9 Plt Count 361 Neut % (Auto) 66.2 Lymph % (Auto) 22.9 L [place] % (Auto) 8.9 Eos % (Auto) 1.3 L Baso % (Auto) 0.7 Neut # (Auto) 7200 H PT INR Sodium 136 L Potassium 3.4 Chloride 98.0 Carbon Dioxide 25.0 BUN 12.0 Creatinine 1.00 Estimated GFR 53.5 L BUN/Creatinine Ratio 12.0 Glucose 116 H Calcium 9.7 Magnesium 2.1 Total Bilirubin 0.6 AST 43 H ALT 29 Alkaline Phosphatase 103 Total Creatine Kinase 65 Troponin I 0.019 Total Protein 7.8 Albumin 4.3 Globulin 3.5 Albumin/Globulin Ratio 1.2 Lipase 50 TSH Thyroxine (T4) Nasal Screen MRSA (PCR) Negative for mrsa 08/07/17 08/08/17 08/08/17 Unknown 04:42 04:42 WBC RBC Hgb Hct MCV MCH MCHC RDW Plt Count Neut % (Auto) Lymph % (Auto) [place] % (Auto) Eos % (Auto) Baso % (Auto) Neut # (Auto) PT 14.0 H INR 1.3 Sodium Potassium Chloride Carbon Dioxide BUN Creatinine Estimated GFR BUN/Creatinine Ratio Glucose Calcium Magnesium Total Bilirubin AST ALT Alkaline Phosphatase Total Creatine Kinase Troponin I 0.018 Total Protein Albumin Globulin Albumin/Globulin Ratio Lipase TSH 1.85 Thyroxine (T4) 6.35 Nasal Screen MRSA (PCR) 08/08/17 04:42 WBC RBC Hgb Hct MCV MCH MCHC RDW Plt Count Neut % (Auto) Lymph % (Auto) [place] % (Auto) Eos % (Auto) Baso % (Auto) Neut # (Auto) PT INR Sodium Potassium Chloride Carbon Dioxide BUN Creatinine Estimated GFR BUN/Creatinine Ratio Glucose Calcium Magnesium Total Bilirubin AST ALT Alkaline Phosphatase Total Creatine Kinase Troponin I Total Protein Albumin Globulin Albumin/Globulin Ratio Lipase TSH 3.04 Thyroxine (T4) Nasal Screen MRSA (PCR) Discharge Plan Discharge Plan Patient Disposition: Home, Self-Care Discharge comment: Discharge home today. Provider Discharge Instructions Diet: Low-fat, Low-sodium and Low-cholesterol Activity: Activity as tolerated Discharge Data Attending Provider: Carissa Chen Admit Date/Time: 08/07/17 17:54 Quality VTE Deep Vein Thrombosis/Pulmonary Embolism Present on Admission: Yes
--- NOTE | 2017-08-08 10:17 | P.DS_ITS ---
History of Present Illness Chief complaint: Rapid Atrial Fibrillation Narrative: Tali Burton is a 81 year old female who has just moved from [facility] to [place] about 10 days ago. She has arthritis in her knees. She recently ran out of her medications. She presented to the [facility] clinic trying to get some pain medications. She was found to have atrial fibrillation with rapid ventricular response. She was subsequently directed to the [facility] Emergency Room. She received IV diltiazem and was started on diltiazem drip. She also received therapeutic dose of Lovenox for anticoagulation. She was subsequently admitted to the intensive care unit. Patient denies chest pain or palpitation. She has been feeling weak in the past 2 days. Discharge Providers Date of admission: 08/07/17 17:54 Primary care physician: She is going to establish primary care with Carissa chen at [facility] Discharge provider: Carissa Chen MD Discharge Date: 08/08/17 Summary Hospital Course: 1. Atrial fibrillation with rapid ventricular response: Patient was treated with diltiazem drip. She was also started on oral diltiazem in addition to metoprolol. Her heart rate is much better controlled. She was able to wean off diltiazem the next morning. Her thyroid function tests were normal. Her troponin was negative. She received 1 time dose of therapeutic Lovenox at the ER. She was also started on Coumadin for anticoagulation. She will continue full-dose aspirin until she is therapeutic on Coumadin. She will have her INR rechecked in about 3 days at [facility] or [facility]. Follow up with Dr. Craissa chen at [facility] within 7 days. 2. Hypertension 3. Hyperlipidemia 4. Chronic pain, on narcotics pain medication for pain control 5. Morbid obesity: BMI 37.5 Status at Discharge Functional status at discharge: independent ambulation Overall status at discharge: patient is back to baseline Time Spent with Patient Total time spent providing and/or coordinating discharge services: 40 min Greater than 30 minutes Specific discharge activities: Establish primary care at [facility] with Dr. Carissa Chen. Recheck INR in 3 days. Exam Vital Signs (past 8 hours): Vital Signs - 8 hr 3 08/08/17 02:00 08/08/17 04:40 08/08/17 05:06 Temperature 97.9 F 97.7 F Pulse Rate 71 71 104 H Respiratory Rate 17 16 15 Blood Pressure 119/47 L 105/55 L 105/55 L Pulse Oximetry 95 95 97 3 08/08/17 05:11 08/08/17 07:47 08/08/17 08:04 Temperature 97.9 F 98.2 F Pulse Rate 78 73 80 Respiratory Rate 14 12 15 Blood Pressure 105/55 L 130/79 H Pulse Oximetry 95 96 95 Pulse Oximetry 95 Oxygen Delivery Method Room Air Oxygen Flow Rate 0 Objective Labs Result Diagrams: 08/07/17 Unknown 08/07/17 Unknown Labs: Laboratory Results - last 24 hr 08/07/17 08/07/17 08/07/17 19:40 Unknown Unknown WBC 10.8 RBC 4.72 Hgb 13.5 Hct 40.0 MCV 84.8 MCH 28.5 MCHC 33.6 RDW 13.9 Plt Count 361 Neut % (Auto) 66.2 Lymph % (Auto) 22.9 L [place] % (Auto) 8.9 Eos % (Auto) 1.3 L Baso % (Auto) 0.7 Neut # (Auto) 7200 H PT INR Sodium 136 L Potassium 3.4 Chloride 98.0 Carbon Dioxide 25.0 BUN 12.0 Creatinine 1.00 Estimated GFR 53.5 L BUN/Creatinine Ratio 12.0 Glucose 116 H Calcium 9.7 Magnesium 2.1 Total Bilirubin 0.6 AST 43 H ALT 29 Alkaline Phosphatase 103 Total Creatine Kinase 65 Troponin I 0.019 Total Protein 7.8 Albumin 4.3 Globulin 3.5 Albumin/Globulin Ratio 1.2 Lipase 50 TSH Thyroxine (T4) Nasal Screen MRSA (PCR) Negative for mrsa 08/07/17 08/08/17 08/08/17 Unknown 04:42 04:42 WBC RBC Hgb Hct MCV MCH MCHC RDW Plt Count Neut % (Auto) Lymph % (Auto) [place] % (Auto) Eos % (Auto) Baso % (Auto) Neut # (Auto) PT 14.0 H INR 1.3 Sodium Potassium Chloride Carbon Dioxide BUN Creatinine Estimated GFR BUN/Creatinine Ratio Glucose Calcium Magnesium Total Bilirubin AST ALT Alkaline Phosphatase Total Creatine Kinase Troponin I 0.018 Total Protein Albumin Globulin Albumin/Globulin Ratio Lipase TSH 1.85 Thyroxine (T4) 6.35 Nasal Screen MRSA (PCR) 08/08/17 04:42 WBC RBC Hgb Hct MCV MCH MCHC RDW Plt Count Neut % (Auto) Lymph % (Auto) [place] % (Auto) Eos % (Auto) Baso % (Auto) Neut # (Auto) PT INR Sodium Potassium Chloride Carbon Dioxide BUN Creatinine Estimated GFR BUN/Creatinine Ratio Glucose Calcium Magnesium Total Bilirubin AST ALT Alkaline Phosphatase Total Creatine Kinase Troponin I Total Protein Albumin Globulin Albumin/Globulin Ratio Lipase TSH 3.04 Thyroxine (T4) Nasal Screen MRSA (PCR) Discharge Plan Discharge Plan Patient Disposition: Home, Self-Care Discharge comment: Discharge home today. Provider Discharge Instructions Diet: Low-fat, Low-sodium and Low-cholesterol Activity: Activity as tolerated Discharge Data Attending Provider: Carissa Chen Admit Date/Time: 08/07/17 17:54 Quality VTE Deep Vein Thrombosis/Pulmonary Embolism Present on Admission: Yes
--- NOTE | 2017-08-08 14:52 | CM.DANOTE ---
DCP/Brief Assessment: Reviewed chart. Patient is a 81yr old female admitted to [facility] with AFIB. Primary payor is 1)[employer]. PCP not listed. Attempted to meet with patient to introduce role and discuss d/c planning. Spoke with RN/Chilo early this afternoon and she reports that patient has already been discharged today. RN reports that there were not identified d/c planning needs. P: Home today. CM team attempted visit but patient had already discharged. EMILY Barton
== END 2017-08-08 14:00 | disposition home or self-care (01) ==
LOC: ED 15:51 → ICU 08-08 07:46 → ED 08-10 14:45 → ICU 08-11 10:34
PROVIDERS: Admitting Provider Internal Medicine; Emergency Provider Emergency Medicine; Visit Provider Internal Medicine
DX: I48.91 Unspecified atrial fibrillation (principal); R00.2 Palpitations; G89.29 Other chronic pain; E78.5 Hyperlipidemia, unspecified; I10 Essential (primary) hypertension; J84.10 Pulmonary fibrosis, unspecified; Z87.891 Personal history of nicotine dependence; Z86.73 Personal history of transient ischemic attack (TIA), and cerebral infarction without residual deficits; E66.01 Morbid (severe) obesity due to excess calories; Z66 Do not resuscitate
CPT/HCPCS: 36415; 36591; 71045; 80053; 82550; 82553; 83690; 83735; 84436; 84443; 84484; 85025; 85610; 87797; 93005; 94640; 96361; 96365; 96372; 96375; 99283; 99285; G0378; J1650

== ENCOUNTER 2017-09-05 15:19 | Emergency (ER) | payer MEDICARE, SELFPAY ==
[2017-08-07 20:18] VITALS: BMI 36.9
[2017-09-05 15:24] VITALS: BP 123/75; PULSE 71; RESP 16; TEMP 36.2; O2SAT 96; BMI 35.6
--- NOTE | 2017-09-05 15:57 | ED.NEUROSD ---
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 Her daughter who is with her noted that when she came to visit her today she had a right eyelid droop which was new for her. The last time she saw her mother was 2 days ago and this was not present. It has resolved at the time of arrival to the ER. The patient did not notice the symptoms. There were no other focal neurologic symptoms noted by the patient or her daughter. Daughter notes that she has had multiple TIAs over the past several years. Patient only admits generalized weakness and has had some intermittent dysuria over the past several days. On Anticoagulants: Yes Related Data Home Medications Medication Instructions Recorded Confirmed atorvastatin 80 mg PO DAILY 08/07/17 09/05/17 doxepin 100 mg PO BEDTIME 08/07/17 09/05/17 escitalopram oxalate 10 mg PO DAILY 08/07/17 09/05/17 gabapentin 300 mg PO BID 08/07/17 09/05/17 lubiprostone [Amitiza] 24 mcg PO BID 08/07/17 09/05/17 omeprazole magnesium [Prilosec OTC] 20 mg PO DAILY 08/07/17 09/05/17 umeclidinium-vilanterol [Anoro 1 inh INHALATION Q24H 08/07/17 09/05/17 Ellipta] zolpidem 5 mg PO BEDTIME 08/07/17 09/05/17 fluticasone furoate 1 puff INHALATION DAILY 09/05/17 09/05/17 gabapentin 600 mg PO BEDTIME 09/05/17 09/05/17 hydrocodone-acetaminophen 1 tab PO TID PRN 09/05/17 09/05/17 levalbuterol tartrate [Xopenex HFA] 1 puff INHALATION Q4H PRN 09/05/17 09/05/17 Previous Rx's Medication Instructions Recorded diltiazem HCl 180 mg PO DAILY 30 Days #30 cap 08/08/17 metoprolol succinate 100 mg PO DAILY 30 Days #30 tab 08/08/17 warfarin [Coumadin] 5 mg PO DAILY 30 Days #30 tab 08/08/17 nitrofurantoin monohyd/m-cryst 1 cap PO Q12H 7 Days #14 cap 09/05/17 [Macrobid] Allergies Allergy/AdvReac Type Severity Reaction Status Date / Time Sulfa (Sulfonamide Allergy Intermediate Rash Verified 08/07/17 15:26 Antibiotics) Review of Systems Review of Systems All systems reviewed & are unremarkable except as noted in HPI and below Constitutional Denies chills, Denies fever(s), Denies lethargy and Denies weakness Eyes Denies change in vision, Denies eye discharge, Denies irritation and Denies loss of vision ENT Ears, Nose, Mouth, and Throat: Denies change in voice, Denies neck pain and Denies sore throat Cardiovascular Denies chest pain, Denies irregular heart rhythm, Denies lightheadedness, Denies palpitations, Denies dyspnea, Denies dyspnea on exertion and Denies orthopnea Respiratory Denies cough, Denies dyspnea, Denies dyspnea on exertion and Denies wheezing Gastrointestinal Gastrointestinal: Denies abdominal pain, Denies change in bowel habits, Denies diarrhea, Denies nausea and Denies vomiting Genitourinary Denies hematuria, Reports urinary frequency, Reports dysuria, Denies flank pain, Denies urinary incontinence and Denies urinary urgency Musculoskeletal Denies neck pain Integumentary/Breasts Denies pruritus, Denies erythema, Denies rash and Denies wounds Neurologic Denies confusion, Denies focal weakness, Denies loss of vision and Denies weakness Comments: Generalized weakness Psychiatric Denies anxiety, Denies confusion, Denies depression, Denies homicidal ideation and Denies suicidal ideation Endocrine Denies palpitations Hematologic/Lymphatic Denies easy bruising Allergic/Immunologic Denies wheezing PFSH Medical History Chronic pain (Acute) Hyperlipidemia (Acute) Hypertension (Acute) Impaired fasting glucose (Acute) Pulmonary fibrosis (Acute) Stroke (Acute) Social History details: two years ago number of children: 2 lives independently: Yes caregiver/support person: Yes housing: apartment other: Denies alcohol drinking or cigarette smoking. Her son of overdose 1 w Smoking Status: Former smoker Exam Initial Vital Signs Initial Vital Signs: Vital Signs Temperature 97.1 F L 09/05/17 15:24 Pulse Rate 71 09/05/17 15:24 Respiratory Rate 16 09/05/17 15:24 Blood Pressure 123/75 H 09/05/17 15:24 Pulse Oximetry 96 09/05/17 15:24 Const General: cooperative and well developed Nutritional Appearance: well nourished Orientation: alert, awake, oriented x3 and not confused [facility] Head: normocephalic and atraumatic Ears: external ears normal and TM's normal bilaterally Nose: external nose normal and No nasal discharge Face and sinus: sinuses nontender, face symmetric, no sinus tenderness and No dry mucous membranes Mouth: oral mucosae normal and moist mucous membranes Teeth and gingiva: dentition normal Throat: tonsils normal and uvula midline Eyes General: appearance normal, both eyes and all related structures Eyelids: eyelids normal Conjunctivae: conjunctivae normal Sclera: sclerae normal Pupils: PERRL EOM: EOM intact bilaterally Neck Neck: normal visual inspection, trachea midline, No lymphadenopathy, No midline deformity and No JVD Lymphatic: No lymphedema Chest Chest: normal inspection of the chest Resp Effort & Inspection: normal respiratory effort, able to speak in complete sentences, no respiratory distress and no use of accessory muscles Auscultation: clear to auscultation bilaterally, no rales, no rhonchi and no wheezes Cardio Rate: regular rate Rhythm: regular rhythm Heart Sounds: no click, no gallops, no murmurs and no rubs Pulses: normal peripheral pulses GI Inspection: non-distended Palpation: soft, no hepatosplenomegaly, No guarding, No pulsatile mass and No tender Auscultation: normal bowel sounds Back/Spine/Pelvis Back: No CVA tenderness Cervical Spine: cervical ROM normal and No pain with cervical ROM Thoracic/Lumbar Spine: thoracic and lumbar spine normal to inspection Skin General: no rashes or lesions noted, No jaundice and No petechiae Neuro General: alert, oriented x3, gait normal and no focal motor deficits Speech: speech normal Other: Complete NIH score conducted by myself and is 0. There is no eyelid droop present Extrem General: full ROM, no clubbing, cyanosis or edema, no pedal edema and no calf tenderness Psych Appearance: well kempt Mental Status: mental status grossly normal Attitude: cooperative Thought Content: normal and suicidality Judgment: judgment good Scores NIH Stroke Scale Level of Conciousness: Alert, keenly responsive Ask month/age: Answers both questions correctly. Open/close eyes, close hand: Performs both tasks correctly Best gaze horizontal: Normal Visual garcia: No visual loss Facial palsy: Normal symetrical movement Left arm drift: No drift for full 10 sec Right arm drift: No drift for full 10 sec Left leg drift: No drift for full 10 sec Right leg drift: No drift for full 10 sec Limb ataxia: Absent Sensory on face/arms/legs: Normal, no sensory loss Best language: No aphasia, normal Dysarthria: Normal Extinction or inattention: No abnormality Total NIH Stroke scale score: 0 Course Orders Ordered: ED Orders 09/05/17 15:55 Urinalysis and Microscopic Stat Urine Culture Stat 09/05/17 16:00 CBC manual diff [Complete Blood Count MAN DIFF] Stat CMP [Comprehensive Metabolic Panel] Stat PT [Prothrombin Time INR] Stat 09/05/17 16:49 CT head/brain wo con Stat Discontinued Medications Nitrofurantoin Macrocrystals (Macrobid 100 Mg Capsule) 100 mg PO NOW ONE Stop: 09/05/17 18:05 Last Admin: 09/05/17 18:21 Dose: 100 mg Vital Signs - 8 hr 09/05/17 15:24 09/05/17 16:36 09/05/17 17:05 Temperature 97.1 F L Pulse Rate 71 81 67 Respiratory Rate 16 15 20 Blood Pressure 123/75 H Blood Pressure [Right Arm] 98/58 L 82/69 L Pulse Oximetry 96 98 98 09/05/17 18:00 Temperature Pulse Rate 76 Respiratory Rate 20 Blood Pressure Blood Pressure [Right Arm] 108/60 Pulse Oximetry 97 MDM - Neuro Symptoms/Deficit Lab Data Result diagrams: 09/05/17 16:00 09/05/17 16:00 Lab Results 09/05/17 09/05/17 09/05/17 Range/Units 15:55 16:00 16:00 WBC 10.4 (4.5-11.0) X10^3/uL RBC 4.42 (4.0-5.2) X10^6/uL Hgb 12.8 (12.0-16.0) g/dL Hct 36.7 (36-46) % MCV 83.1 (80-100) fL MCH 29.0 (26-34) PG MCHC 34.9 (30-36) % RDW 14.0 (11.6-14.8) % Plt Count 384 (150-400) X10^3/uL Total Counted 100 Seg Neutrophils % 73.0 H (38-70) % Lymphocytes % (Manual) 18.0 L (25-45) % Atypical Lymphs % 1.0 H ( - 0) % Monocytes % (Manual) 5.0 (2-11) % Eosinophils % (Manual) 1.0 L (2-4) % Basophils % (Manual) 2.0 H (0-1) % Neutrophils # (Manual) 7592 H (6132-3740) /uL RBC Morphology Not Reportable Poikilocytosis 2+ H Anisocytosis 1+ H Microcytosis 1+ H [place] Cells 1+ H PT 21.3 H (10.1-12.7) SECONDS INR 2.0 H (0.9-1.3) Sodium (137-145) mmol/L Potassium (3.4-5.1) mmol/L Chloride (98-107) mmol/L Carbon Dioxide (22-32) mmol/L BUN (7-17) mg/dL Creatinine (0.52-1.04) mg/dL Estimated GFR (>60) mL/min BUN/Creatinine Ratio (6-22) Glucose (80-110) mg/dL Calcium (8.4-10.2) mg/dL Total Bilirubin (0.2-1.3) mg/dL AST (14-36) IU/L ALT (9-52) IU/L Alkaline Phosphatase (38-126) U/L Total Protein (6.3-8.2) g/dL Albumin (3.5-5.0) g/dL Globulin (1.7-4.1) g/dL Albumin/Globulin Ratio (1.0-2.8) Urine Color Yellow Urine Appearance Sl cloudy Urine pH 6.0 (4.5-8.0) Ur Specific [place] <=1.005 (1.000-1.035) Urine Protein Negative (Negative) Urine Glucose (UA) Negative (Normal) g/dL Urine Ketones Negative (NEGATIVE) Urine Occult Blood Negative (Negative) Urine Nitrate Negative (Negative) Urine Bilirubin Negative (NEGATIVE) Urine Urobilinogen 0.2 (0.2) E.U./dL Ur Leukocyte Esterase 2+ H (NEGATIVE) Urine RBC None seen (0-5/HPF) Urine WBC 5-10/hpf H (0-5/HPF) Urine Bacteria None seen (None) Ur Culture Indicated? Specimen cultured Micro UA Comment Not Reportable 09/05/17 Range/Units 16:00 WBC (4.5-11.0) X10^3/uL RBC (4.0-5.2) X10^6/uL Hgb (12.0-16.0) g/dL Hct (36-46) % MCV (80-100) fL MCH (26-34) PG MCHC (30-36) % RDW (11.6-14.8) % Plt Count (150-400) X10^3/uL Total Counted Seg Neutrophils % (38-70) % Lymphocytes % (Manual) (25-45) % Atypical Lymphs % ( - 0) % Monocytes % (Manual) (2-11) % Eosinophils % (Manual) (2-4) % Basophils % (Manual) (0-1) % Neutrophils # (Manual) (6891-3215) /uL RBC Morphology Poikilocytosis Anisocytosis Microcytosis [place] Cells PT (10.1-12.7) SECONDS INR (0.9-1.3) Sodium 136 L (137-145) mmol/L Potassium 3.6 (3.4-5.1) mmol/L Chloride 95 L (98-107) mmol/L Carbon Dioxide 28 (22-32) mmol/L BUN 15 (7-17) mg/dL Creatinine 1.00 (0.52-1.04) mg/dL Estimated GFR 53.5 L (>60) mL/min BUN/Creatinine Ratio 15.0 (6-22) Glucose 112 H (80-110) mg/dL Calcium 9.3 (8.4-10.2) mg/dL Total Bilirubin 0.8 (0.2-1.3) mg/dL AST 25 (14-36) IU/L ALT 20 (9-52) IU/L Alkaline Phosphatase 93 (38-126) U/L Total Protein 7.2 (6.3-8.2) g/dL Albumin 4.0 (3.5-5.0) g/dL Globulin 3.2 (1.7-4.1) g/dL Albumin/Globulin Ratio 1.3 (1.0-2.8) Urine Color Urine Appearance Urine pH (4.5-8.0) Ur Specific [place] (1.000-1.035) Urine Protein (Negative) Urine Glucose (UA) (Normal) g/dL Urine Ketones (NEGATIVE) Urine Occult Blood (Negative) Urine Nitrate (Negative) Urine Bilirubin (NEGATIVE) Urine Urobilinogen (0.2) E.U./dL Ur Leukocyte Esterase (NEGATIVE) Urine RBC (0-5/HPF) Urine WBC (0-5/HPF) Urine Bacteria (None) Ur Culture Indicated? Micro UA Comment Imaging Data CT scan - head: Radiologist's impression: PROCEDURE: CT HEAD/BRAIN WO CON INDICATIONS: headache, possible facial droop, hx of stroke TECHNIQUE: Noncontrast 4.5 mm thick angled axial sections acquired from the foramen magnum to the vertex, with coronal and sagittal reformats. For radiation dose reduction, the following was used: automated exposure control, adjustment of mA and/or kV according to patient size. COMPARISON: None. FINDINGS: Image quality: Excellent. CSF spaces: Basal cisterns are patent. No extra-axial fluid collections. Ventricles are normal in size and shape. Brain: No midline shift. No intracranial masses or hemorrhage. Wyman-white matter interface is normal. Old lacunar infarct noted in the deep white matter lateral to the middle third of the left lateral ventricle. Skull and face: Calvarium and visualized facial bones are intact, without suspicious lesions. Sinuses: Visualized sinuses and mastoids are clear. IMPRESSION: No acute disease. Moderate microvascular atherosclerotic change is noted in the deep white matter of each hemisphere, including an old subcentimeter lacunar infarction on the left. A source of new right-sided symptomatology is not found by this CT but MR scanning may detect the underlying etiology. Dictated by: Willie Weeks M.D. on 09/05/2017 at 17:12 Approved by: Willie Weeks M.D. on 09/05/2017 at 17:13 MDM Narrative Medical decision making narrative: 81-year-old female with recent diagnosis of atrial fibrillation presenting in atrial fibrillation, rate controlled, and appropriately anticoagulated with a reported history of right eyelid droop without known onset, but certainly appears resolved at the time of arrival. Head CT is without acute abnormality. Her urinalysis and blood work reveal a urinary tract infection which could explain her dysuria and weakness. She has had multiple TIAs and may benefit from further workup, but I am not convinced that she needs to stay in the hospital because symptoms have not been observed, were not noticed by the patient, and are not associated with hypertensive response. In fact her blood pressure is on the lower side of normal although she is asymptomatic. She does not meet criteria for sepsis. Advised that we treat her UTI and that she have follow-up. Follow-up could include an echocardiogram given her recent diagnosis of AFib although she is appropriately anticoagulated, and potentially repeat imaging of the carotids as this has been over 10 years ago. I will leave this up to her primary care provider to decide. Discharge Plan Departure Patient Disposition: Home, Self-Care Clinical Impression: Acute UTI, Weakness Discharge Date/Time: 09/05/17 18:35 Interventions: ED Discharge Assessment Last Done: 09/05/17 18:42 Instructions: DI for Urinary Tract Infection (UTI) Activity Restrictions/Additional Instructions: Thank you for trusting us with your care today. No dangerous cause for your symptoms was identified. There is no evidence of stroke based on your evaluation here. You do however have a UTI which could be contributing to your weakness. Please follow up with your primary care provider within 1 week for a re-evaluation. Take the antibiotics as prescribed. The symptoms that your daughter described earlier could be related to a TIA. Please discuss potential further workup with your primary care provider in follow-up. Your blood is appropriately anticoagulated on warfarin. Return to the ER for new or worsening symptoms. Prescriptions: New nitrofurantoin monohyd/m-cryst [Macrobid] 100 mg capsule 1 cap PO Q12H 7 Days Qty: 14 RF: 0 No Action doxepin 50 mg Capsule 100 mg PO BEDTIME RF: 0 atorvastatin 80 mg Tablet 80 mg PO DAILY RF: 0 gabapentin 300 mg Capsule 300 mg PO BID RF: 0 zolpidem 5 mg Tablet 5 mg PO BEDTIME RF: 0 escitalopram oxalate 20 mg Tablet 10 mg PO DAILY RF: 0 lubiprostone [Amitiza] 24 mcg Capsule 24 mcg PO BID RF: 0 umeclidinium-vilanterol [Anoro Ellipta] 62.5-25 mcg/actuation Blister With Device 1 inh INHALATION Q24H RF: 0 omeprazole magnesium [Prilosec OTC] 20 mg Tablet,Delayed Release (/Ec) 20 mg PO DAILY RF: 0 diltiazem HCl 180 mg capsule,extended release 24 hr 180 mg PO DAILY 30 Days Qty: 30 RF: 0 metoprolol succinate 100 mg tablet extended release 24 hr 100 mg PO DAILY 30 Days Qty: 30 RF: 0 warfarin [Coumadin] 5 mg tablet 5 mg PO DAILY 30 Days Qty: 30 RF: 0 hydrocodone-acetaminophen 5-325 mg tablet 1 tab PO TID PRN (Reason: Pain, Moderate) RF: 0 gabapentin 300 mg Capsule 600 mg PO BEDTIME RF: 0 levalbuterol tartrate [Xopenex HFA] 45 mcg/actuation Hfa Aerosol Inhaler 1 puff Inhalation Q4H PRN (Reason: Shortness Of Breath) RF: 0 fluticasone furoate 100 mcg/actuation Blister With Device 1 puff Inhalation DAILY RF: 0
[2017-09-05 16:10] LABS: Bacteria Urine None Seen; RBC Urine None Seen (0-5/HPF)
[2017-09-05 16:16] LABS: Appearance Urine UA SL CLOUDY; Bilirubin Urine UA NEGATIVE (NEGATIVE); Color Urine UA YELLOW; Glucose Urine UA NEGATIVE (Normal); Ketones Urine UA NEGATIVE (NEGATIVE); Leukocyte Esterase Urine UA 2+ (NEGATIVE); Nitrite Urine UA Negative (Negative); Occult Blood Urine UA NEGATIVE (Negative); Protein Urine UA NEGATIVE (Negative); Specific Gravity Urine UA <=1.005 (1.000-1.035); Urobilinogen Urine UA 0.2 E.U./dL (0.2)
[2017-09-05 16:17] LABS: Hematocrit 36.7 % (36-46); Hemoglobin 12.8 g/dL (12.0-16.0); Mean Corpuscular HGB Conc 34.9 % (30-36); Mean Corpuscular Volume 83.1 fL (80-100); Platelet Count 384 X10^3/uL (150-400); Red Blood Cell Count 4.42 X10^6/uL (4.0-5.2); White Blood Cell Count 10.4 X10^3/uL (4.5-11.0)
[2017-09-05 16:19] LABS: Culture Indicated Urine Specimen Cultured; WBC Urine 5-10/HPF (0-5/HPF)
[2017-09-05 16:20] LABS: Prothrombin Time 21.3 SECONDS (10.1-12.7)
[2017-09-05 16:21] LABS: Alanine Aminotransferase 20 IU/L (9-52); Albumin Globulin Ratio 1.3 (1.0-2.8); Alkaline Phosphatase 93 U/L (38-126); Aspartate Aminotransferase 25 IU/L (14-36); Bilirubin Total 0.8 mg/dL (0.2-1.3); Blood Urea Nitrogen 15 mg/dL (7-17); Calcium 9.3 mg/dL (8.4-10.2); Carbon Dioxide 28 mmol/L (22-32); Chloride 95 mmol/L (98-107); Estimated Glomerular Filt Rate 53.5 mL/min (>60); Globulin 3.2 g/dL (1.7-4.1); Glucose 112 mg/dL (80-110); HEMOLYSIS 36 (0-50); Potassium 3.6 mmol/L (3.4-5.1); Sodium 136 mmol/L (137-145); Total Protein 7.2 g/dL (6.3-8.2)
[2017-09-05 16:36] VITALS: BP 98/58; PULSE 81; RESP 15; O2SAT 98
--- NOTE | 2017-09-05 16:49 | DI.CT.S_ITS ---
PROCEDURE: CT HEAD/BRAIN WO CON INDICATIONS: headache, possible facial droop, hx of stroke TECHNIQUE: Noncontrast 4.5 mm thick angled axial sections acquired from the foramen magnum to the vertex, with coronal and sagittal reformats. For radiation dose reduction, the following was used: automated exposure control, adjustment of mA and/or kV according to patient size. COMPARISON: None. FINDINGS: Image quality: Excellent. CSF spaces: Basal cisterns are patent. No extra-axial fluid collections. Ventricles are normal in size and shape. Brain: No midline shift. No intracranial masses or hemorrhage. Wyman-white matter interface is normal. Old lacunar infarct noted in the deep white matter lateral to the middle third of the left lateral ventricle. Skull and face: Calvarium and visualized facial bones are intact, without suspicious lesions. Sinuses: Visualized sinuses and mastoids are clear. IMPRESSION: No acute disease. Moderate microvascular atherosclerotic change is noted in the deep white matter of each hemisphere, including an old subcentimeter lacunar infarction on the left. A source of new right-sided symptomatology is not found by this CT but MR scanning may detect the underlying etiology. Dictated by: Willie Weeks M.D. on 09/05/2017 at 17:12 Approved by: Willie Weeks M.D. on 09/05/2017 at 17:13
[2017-09-05 17:00] LABS: Neutrophils Absolute Manual 7592 /uL (3000-5900); Total Cells Counted 100
[2017-09-05 17:01] LABS: Anisocytosis 1+; Burr Cells 1+; Poikilocytosis 2+
[2017-09-05 17:02] LABS: Microcytosis 1+
[2017-09-05 17:05] VITALS: BP 82/69; PULSE 67; RESP 20; O2SAT 98
--- NOTE | 2017-09-05 17:44 | PC.NURSE ---
Pt presents with multiple complaints including fatigue, possible blood in urine, headaches, generalized weakness, looks pale, reports sx intermittent over several weeks, recent increased stress r/t family and housing, daughter was concerned about a possible rt side facial droop when she contacted her today, however reports this as resolved at time of exam. Negative FAST exam. NIH scale of 0 completed with Andelin. Pt reports mild rt side weakness as baseline r/t previous stroke. Pt appears SOA, states this is normal for her r/t pulm disease. Lungs clear/equal. abd soft/nontender
[2017-09-05 18:00] VITALS: BP 108/60; PULSE 76; RESP 20; O2SAT 97
[2017-09-05] MEDS: NITROFURANTOIN ER 100 MG CAPSULE PO (18:21)
== END 2017-09-05 18:35 | disposition home or self-care (01) ==
PROVIDERS: Emergency Provider Emergency Medicine
DX: N39.0 Urinary tract infection, site not specified (principal); R53.1 Weakness
CPT/HCPCS: 70450; 80053; 81001; 81003; 85025; 85610; 87086; 99283; 99284; 99291

== ENCOUNTER 2017-12-07 12:24 | Emergency (ER) | payer MEDICARE, SELFPAY ==
[2017-08-07 20:18] VITALS: BMI 36.9
[2017-12-07] VITALS (9 sets, daily range): BP systolic 87–137; BP diastolic 48–123; PULSE 118–156; RESP 17–40; TEMP 36.9; O2SAT 89–97
--- NOTE | 2017-12-07 12:40 | DI.CT.S_ITS ---
PROCEDURE: CT HEAD/BRAIN WO CON INDICATIONS: aphasia on coumadin a.fibcode stroke TECHNIQUE: Noncontrast 4.5 mm thick angled axial sections acquired from the foramen magnum to the vertex, with coronal and sagittal reformats. For radiation dose reduction, the following was used: automated exposure control, adjustment of mA and/or kV according to patient size. COMPARISON: [facility], CT, CT HEAD/BRAIN WO CON, 09/05/2017, 16:51. FINDINGS: Image quality: Excellent. CSF spaces: Basal cisterns are patent. No extra-axial fluid collections. The ventricles are symmetric in size and shape. Brain: No intracranial bleeds or masses. There is cerebral volume loss for age, with resultant ventricular and sulcal prominence. There is a small hypodensity in the left groin area unchanged from 09/05/2016, compared with an old infarct. There are periventricular and deep white matter chronic small vessel ischemic changes. There is intracranial internal carotid artery atherosclerosis. Skull and face: Calvarium and visualized facial bones appear intact, without suspicious lesions. Sinuses: Visualized sinuses and mastoids are clear. IMPRESSION: 1. No acute intracranial abnormalities. 2. Probable old infarct in the left rodriges radiata. 3. Cerebral volume loss and chronic microvascular ischemic changes. Dictated by: Destin Albarran M.D. on 12/07/2017 at 12:40 Approved by: Destin Albarran M.D. on 12/07/2017 at 14:13
[2017-12-07 12:47] LABS: Add Manual Diff / Slide Review NO; Basophils Percent Auto 0.4 % (0-2); Eosinophils Percent Auto 0.1 % (2-4); Hematocrit 40.8 % (36-46); Hemoglobin 13.7 g/dL (12.0-16.0); Lymphocytes Percent Auto 4.7 % (25-40); Mean Corpuscular HGB Conc 33.6 % (30-36); Mean Corpuscular Hemoglobin 27.6 PG (26-34); Mean Corpuscular Volume 82.2 fL (80-100); Monocytes Percent Auto 4.6 % (3-14); Neutrophils Absolute Auto 17400 /uL (3000-5900); Neutrophils Percent Auto 90.2 % (50-75); Platelet Count 332 X10^3/uL (150-400); Red Blood Cell Count 4.97 X10^6/uL (4.0-5.2); Red Cell Distribution Width 15.1 % (11.6-14.8); White Blood Cell Count 19.3 X10^3/uL (4.5-11.0)
[2017-12-07 12:48] LABS: INR 2.7 (0.9-1.3); Prothrombin Time 29.3 SECONDS (10.1-12.7)
--- NOTE | 2017-12-07 12:49 | ED_ITS ---
HPI - Neuro Symptoms/Deficit General Stated Complaint: Possible stroke, expressive aphasia Time Seen by Provider: 12/07/17 12:29 Source: patient, family and EMS Mode of arrival: EMS History of Present Illness HPI Narrative: The patient is an 82-year-old female who was found slumped over difficulty speaking and having chest pain. She was found by a caregiver. Last known normal his last evening. She does have a history of AFib and is on Coumadin. She was noted to be in AFib with RVR by EMS heart rate in the 190s he was given 20 mg Cardizem by EMS and brought to the ED for evaluation. She is currently showing on the aspirin that they also tried to get her. Arm she is able to follow commands and has no facial drooping or obvious weakness. A once coughing choking episode has resolved she does clearly have difficulty naming objects. Heart rate is down into the 150s. Daughter is at bedside Related Data Home Medications Medication Instructions Recorded Confirmed atorvastatin 80 mg PO DAILY 08/07/17 12/07/17 doxepin 100 mg PO BEDTIME 08/07/17 12/07/17 escitalopram oxalate 10 mg PO DAILY 08/07/17 12/07/17 gabapentin 300 mg PO BID 08/07/17 12/07/17 lubiprostone [Amitiza] 24 mcg PO BID 08/07/17 12/07/17 omeprazole magnesium [Prilosec OTC] 20 mg PO DAILY 08/07/17 12/07/17 zolpidem 5 mg PO BEDTIME 08/07/17 12/07/17 fluticasone furoate 1 puff INHALATION DAILY 09/05/17 12/07/17 gabapentin 600 mg PO BEDTIME 09/05/17 12/07/17 hydrocodone-acetaminophen 1 tab PO TID PRN 09/05/17 12/07/17 albuterol sulfate [ProAir HFA] 2 puff INHALATION Q4-6H PRN 12/07/17 12/07/17 diltiazem HCl [DILT-XR] 180 mg PO DAILY 12/07/17 12/07/17 furosemide 20 mg PO DAILY 12/07/17 12/07/17 levalbuterol tartrate [Xopenex HFA] 1 puff INHALATION Q4-6H PRN 12/07/17 lubiprostone [Amitiza] 24 mcg PO BID 12/07/17 12/07/17 metoprolol succinate 100 mg PO DAILY 12/07/17 12/07/17 nystatin 1 applic TOPICAL TID 12/07/17 12/07/17 umeclidinium-vilanterol [Anoro 1 inh INHALATION Q24H 12/07/17 12/07/17 Ellipta] warfarin 5 mg PO DAILY 12/07/17 12/07/17 Allergies Allergy/AdvReac Type Severity Reaction Status Date / Time Sulfa (Sulfonamide Allergy Intermediate Rash Verified 08/07/17 15:26 Antibiotics) Review of Systems Review of Systems All systems reviewed & are unremarkable except as noted in HPI and below Constitutional Denies chills, Denies fever(s), Denies lethargy and Denies weakness Cardiovascular Reports as per HPI Respiratory Reports as per HPI Gastrointestinal Gastrointestinal: Denies abdominal pain, Denies change in bowel habits, Denies diarrhea, Denies nausea and Denies vomiting Musculoskeletal Denies back pain, Denies muscle weakness, Denies numbness and Denies tingling Integumentary/Breasts Denies pruritus, Denies erythema, Denies rash and Denies wounds Neurologic Reports system reviewed and no additional complaints, except as docu, Reports abnormal speech, Denies numbness, Denies tingling and Denies weakness [facility] Medical History Chronic pain (Acute) Hyperlipidemia (Acute) Hypertension (Acute) Impaired fasting glucose (Acute) Pulmonary fibrosis (Acute) Stroke (Acute) Social History details: two years ago number of children: 2 lives independently: Yes caregiver/support person: Yes housing: apartment other: Denies alcohol drinking or cigarette smoking. Her son of overdose 1 w Smoking Status: Former smoker Exam Initial Vital Signs Initial Vital Signs: Vital Signs Pulse Rate 156 H 12/07/17 12:25 Respiratory Rate 20 12/07/17 12:25 GENERAL: Alert female choking on aspirin, but this does resolve quickly HEENT: Head atraumatic,EOMI, pupils reactive, face symmetric, neck is supple CARDIOVASCULAR: Regular rate and rhythm without murmurs, rubs or gallops. RESPIRATORY: Breath sounds equal bilaterally, no wheezes rales or rhonchi. ABDOMEN: Soft, nontender. Normoactive bowel sounds all 4 quadrants. No guarding or rebound. EXTREMITIES: Normal range of motion, no clubbing or edema. Neurovascularly intact NEUROLOGICAL: Alert and oriented x4. 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 Scores NIH Stroke Scale Level of Conciousness: Alert, keenly responsive Ask month/age: Answers both questions correctly. Open/close eyes, close hand: Performs both tasks correctly Best gaze horizontal: Normal Visual garcia: No visual loss Facial palsy: Normal symetrical movement Left arm drift: No drift for full 10 sec Right arm drift: No drift for full 10 sec Left leg drift: No drift for full 10 sec Right leg drift: No drift for full 10 sec Limb ataxia: Absent Sensory on face/arms/legs: Normal, no sensory loss Best language: Severe aphasia, not much is understood, fragmented Dysarthria: Mild to mod,some slurring Extinction or inattention: No abnormality Total NIH Stroke scale score: 3 Course Orders Ordered: ED Orders 12/07/17 12:15 Complete Blood Count AUTO DIFF Stat Comprehensive Metabolic Panel Stat Partial Thromboplastin Time Stat Prothrombin Time INR Stat Troponin I Stat 12/07/17 12:25 EKG-12 Lead Routine 12/07/17 12:40 CT head/brain wo con Stat 12/07/17 14:17 XR chest 1V Stat Discontinued Medications Sodium Chloride (Normal Saline 0.9%) 1,000 mls @ 150 mls/hr IV CONT JACQUELINE Last Admin: 12/07/17 13:45 Dose: 150 mls/hr Diltiazem HCl 125 mg/ Dextrose 125 mls @ 5 mls/hr IV TITRATE JACQUELINE; Protocol Last Titration: 12/07/17 14:50 Dose: 10 mg/hr, 10 mls/hr Admin: 12/07/17 13:41 Dose: 5 mg/hr, 5 mls/hr Metoprolol Tartrate (Lopressor) 5 mg IV NOW ONE Stop: 12/07/17 14:25 Last Admin: 12/07/17 15:00 Dose: 5 mg Consultations Consultation #1: Dr. Ardon hospitalist at [facility] has been updated patient's symptoms and test results. Patient is in AFib with RVR with indeterminate troponin. She is concerned that troponin may arise she presented with chest pain [facility] is unfortunately not able to do a stress test at this time or for the next 2 weeks. She recommends transferring to the next available hospital. Consultation #2: 2:37Pm Dr. Villasenor, hospitalist at [facility] happily accepts patient. Vital Signs - 8 hr 12/07/17 12:25 12/07/17 13:31 12/07/17 13:41 Temperature Pulse Rate 156 H 139 H 144 H Respiratory Rate 20 30 H Blood Pressure 103/57 L Blood Pressure [Left Arm] 103/57 L Pulse Oximetry 89 L 12/07/17 14:17 12/07/17 15:08 12/07/17 15:35 Temperature Pulse Rate 142 H 137 H 129 H Respiratory Rate 29 H 34 H Blood Pressure Blood Pressure [Left Arm] 108/60 100/56 L 137/123 H Pulse Oximetry 94 12/07/17 16:06 12/07/17 16:36 12/07/17 17:16 Temperature 98.4 F Pulse Rate 120 H 118 H Respiratory Rate 40 H 17 17 Blood Pressure 87/48 L Blood Pressure [Left Arm] 95/67 118/59 L Pulse Oximetry 97 97 MDM - Neuro Symptoms/Deficit Lab Data Attestation: I reviewed the patient's lab results. Result diagrams: 12/07/17 12:15 12/07/17 12:15 Lab Results 12/07/17 12/07/17 12/07/17 Range/Units 12:15 12:15 12:15 WBC 19.3 H (4.5-11.0) X10^3/uL RBC 4.97 (4.0-5.2) X10^6/uL Hgb 13.7 (12.0-16.0) g/dL Hct 40.8 (36-46) % MCV 82.2 (80-100) fL MCH 27.6 (26-34) PG MCHC 33.6 (30-36) % RDW 15.1 H (11.6-14.8) % Plt Count 332 (150-400) X10^3/uL Neut % (Auto) 90.2 H (50-75) % Lymph % (Auto) 4.7 L (25-40) % [place] % (Auto) 4.6 (3-14) % Eos % (Auto) 0.1 L (2-4) % Baso % (Auto) 0.4 (0-2) % Neut # (Auto) 24270 H (5915-6156) /uL PT 29.3 H (10.1-12.7) SECONDS INR 2.7 H (0.9-1.3) APTT 41 H (26.4-36.2) SECONDS Sodium 142 (137-145) mmol/L Potassium 4.4 (3.4-5.1) mmol/L Chloride 104 (98-107) mmol/L Carbon Dioxide 25 (22-32) mmol/L BUN 13 (7-17) mg/dL Creatinine 1.20 H (0.52-1.04) mg/dL Estimated GFR 43.2 L (>60) mL/min BUN/Creatinine Ratio 10.8 (6-22) Glucose 141 H (80-110) mg/dL Calcium 10.0 (8.4-10.2) mg/dL Total Bilirubin 0.9 (0.2-1.3) mg/dL AST 31 (14-36) IU/L ALT 17 (9-52) IU/L Alkaline Phosphatase 110 (38-126) U/L Troponin I 0.113 H (0.01-0.034) ng/mL Total Protein 7.9 (6.3-8.2) g/dL Albumin 4.3 (3.5-5.0) g/dL Globulin 3.6 (1.7-4.1) g/dL Albumin/Globulin Ratio 1.2 (1.0-2.8) Point of Care Testing Glucose POC [address] scan - head: Radiologist's impression: PROCEDURE: CT HEAD/BRAIN WO CON INDICATIONS: aphasia on coumadin a.fibcode stroke TECHNIQUE: Noncontrast 4.5 mm thick angled axial sections acquired from the foramen magnum to the vertex, with coronal and sagittal reformats. For radiation dose reduction, the following was used: automated exposure control, adjustment of mA and/or kV according to patient size. COMPARISON: [facility], CT, CT HEAD/BRAIN WO CON, 09/05/2017, 16:51. FINDINGS: Image quality: Excellent. CSF spaces: Basal cisterns are patent. No extra-axial fluid collections. The ventricles are symmetric in size and shape. Brain: No intracranial bleeds or masses. There is cerebral volume loss for age , with resultant ventricular and sulcal prominence. There is a small hypodensity in the left groin area unchanged from 09/05/2016, compared with an old infarct. There are periventricular and deep white matter chronic small vessel ischemic changes. There is intracranial internal carotid artery atherosclerosis. Skull and face: Calvarium and visualized facial bones appear intact, without suspicious lesions. Sinuses: Visualized sinuses and mastoids are clear. IMPRESSION: 1. No acute intracranial abnormalities. 2. Probable old infarct in the left rodriges radiata. 3. Cerebral volume loss and chronic microvascular ischemic changes. Dictated by: Destin Albarran M.D. on 12/07/2017 at 12:40 ECG Data Attestation: I personally reviewed and interpreted this ECG as follows: Prior ECG tracings: available for review MDM Narrative Medical decision making narrative: Patient is on Cardizem drip Cardizem drip does need to be increased into 10 mg this does seem to control the rate she was given 1 dose Lopressor heart rate slowed. Her speech remains slightly cert slurred and she has difficulty getting words out. Discharge Plan Departure Patient Disposition: [facility] Clinical Impression: CVA (cerebral vascular accident), Atrial fibrillation with RVR Discharge Date/Time: 12/07/17 17:00 Interventions: ED Discharge Assessment Last Done: 12/07/17 17:16 Prescriptions: No Action doxepin 50 mg Capsule 100 mg PO BEDTIME RF: 0 atorvastatin 80 mg Tablet 80 mg PO DAILY RF: 0 gabapentin 300 mg Capsule 300 mg PO BID RF: 0 zolpidem 5 mg Tablet 5 mg PO BEDTIME RF: 0 escitalopram oxalate 20 mg Tablet 10 mg PO DAILY RF: 0 lubiprostone [Amitiza] 24 mcg Capsule 24 mcg PO BID RF: 0 omeprazole magnesium [Prilosec OTC] 20 mg Tablet,Delayed Release (Dr/Ec) 20 mg PO DAILY RF: 0 hydrocodone-acetaminophen 5-325 mg tablet 1 tab PO TID PRN (Reason: Pain, Moderate) RF: 0 gabapentin 300 mg Capsule 600 mg PO BEDTIME RF: 0 fluticasone furoate 100 mcg/actuation Blister With Device 1 puff Inhalation DAILY RF: 0 metoprolol succinate 100 mg Tablet Extended Release 24 Hr 100 mg PO DAILY RF: 0 nystatin 100,000 unit/gram Cream 1 applic TOPICAL TID RF: 0 warfarin 5 mg Tablet 5 mg PO DAILY RF: 0 furosemide 20 mg Tablet 20 mg PO DAILY RF: 0 albuterol sulfate [ProAir HFA] 90 mcg/actuation Hfa Aerosol Inhaler 2 puff INHALATION Q4-6H PRN (Reason: Shortness Of Breath) RF: 0 diltiazem HCl [DILT-XR] 180 mg Capsule,Ext.Rel 24h Degradable 180 mg PO DAILY RF: 0 levalbuterol tartrate [Xopenex HFA] 45 mcg/actuation Hfa Aerosol Inhaler 1 puff INHALATION Q4-6H PRN (Reason: Shortness Of Breath) RF: 0 lubiprostone [Amitiza] 24 mcg Capsule 24 mcg PO BID RF: 0 umeclidinium-vilanterol [Anoro Ellipta] 62.5-25 mcg/actuation Blister With Device 1 inh INHALATION Q24H RF: 0
[2017-12-07 12:51] LABS: PTT Partial Thromboplastin Tim 41 SECONDS (26.4-36.2)
[2017-12-07 12:55] LABS: Alanine Aminotransferase 17 IU/L (9-52); Albumin 4.3 g/dL (3.5-5.0); Albumin Globulin Ratio 1.2 (1.0-2.8); Alkaline Phosphatase 110 U/L (38-126); Aspartate Aminotransferase 31 IU/L (14-36); BUN Creatinine Ratio 10.8 (6-22); Bilirubin Total 0.9 mg/dL (0.2-1.3); Blood Urea Nitrogen 13 mg/dL (7-17); Carbon Dioxide 25 mmol/L (22-32); Chloride 104 mmol/L (98-107); Estimated Glomerular Filt Rate 43.2 mL/min (>60); Globulin 3.6 g/dL (1.7-4.1); Glucose 141 mg/dL (80-110); HEMOLYSIS < 15 (0-50); Potassium 4.4 mmol/L (3.4-5.1); Sodium 142 mmol/L (137-145); Total Protein 7.9 g/dL (6.3-8.2)
[2017-12-07 13:07] LABS: Troponin I 0.113 ng/mL (0.01-0.034)
[2017-12-07] MEDS: dilTIAZem 125 MG in DEXTROSE 5 % IN WATER 100 ML IV (13:41)
[2017-12-07] MEDS: SODIUM CHLORIDE 0.9% 1,000 ML 150 ML IV (13:45)
--- NOTE | 2017-12-07 14:17 | DI.RAD.S_ITS ---
PROCEDURE: XR CHEST 1V INDICATIONS: chest pain TECHNIQUE: One view of the chest was acquired. COMPARISON: [facility], CR, XR CHEST 1V, 08/07/2017, 15:31. FINDINGS: Surgical changes and devices: None. Lungs and pleura: No pleural effusions or pneumothorax. Bilateral interstitial infiltrates suspicious for pulmonary edema secondary to congestive heart failure. Mediastinum: Mediastinal contours appear normal. Heart size is moderately increased. Bones and chest wall: No suspicious bony lesions. Overlying soft tissues appear unremarkable. IMPRESSION: Cardiomegaly. Bilateral interstitial infiltrates suspicious for congestive heart failure. Dictated by: Destin Albarran M.D. on 12/07/2017 at 15:19 Approved by: Destin Albarran M.D. on 12/07/2017 at 15:28
[2017-12-07] MEDS: METOPROLOL TARTRATE 5 MG/5 ML INJ IV (15:00)
--- NOTE | 2017-12-17 01:19 | PC.NURSE ---
infusion continued to floor
== END 2017-12-07 17:00 | disposition short-term general hospital (02) ==
PROVIDERS: Emergency Provider Emergency Medicine; Family Provider Internal Medicine; PCP Internal Medicine
DX: I63.9 Cerebral infarction, unspecified (principal); I48.91 Unspecified atrial fibrillation
CPT/HCPCS: 36591; 70450; 71045; 80053; 82962; 84484; 85025; 85610; 85730; 93005; 96361; 96365; 96375; 99283; 99291

== ENCOUNTER 2017-12-26 10:40 | Emergency (ER) | payer MEDICARE, SELFPAY ==
[2017-08-07 20:18] VITALS: BMI 36.9
[2017-12-26 10:49] VITALS: BP 146/71; PULSE 75; RESP 22; TEMP 36.7; O2SAT 97; BMI 33.5
--- NOTE | 2017-12-26 11:10 | DI.RAD.S_ITS ---
PROCEDURE: XR CHEST 2V INDICATIONS: SHORTNESS OF BREATH DIZZY FEELS FUNNY TECHNIQUE: 2 views of the chest were acquired. COMPARISON: [facility], CR, XR CHEST 1V, 12/07/2017, 14:20. [facility], CR, XR CHEST 1 VIEW, 12/07/2017, 22:32. FINDINGS: Surgical changes and devices: None. Lungs and pleura: There is interstitial prominence suggesting mild CHF. Small pleural effusions are present bilaterally. No pneumothorax. Mediastinum: Mediastinal contours are normal. Heart size is mildly increased. Bones and chest wall: No suspicious bony abnormalities. Soft tissues appear unremarkable. IMPRESSION: Mild congestive heart failure. Dictated by: Destin Albarran M.D. on 12/26/2017 at 11:47 Approved by: Destin Albarran M.D. on 12/26/2017 at 11:49
[2017-12-26 11:23] LABS: Add Manual Diff / Slide Review NO; Basophils Percent Auto 1.2 % (0-2); Eosinophils Percent Auto 0.8 % (2-4); Hemoglobin 12.7 g/dL (12.0-16.0); Lymphocytes Percent Auto 19.7 % (25-40); Mean Corpuscular HGB Conc 33.3 % (30-36); Mean Corpuscular Hemoglobin 27.3 PG (26-34); Mean Corpuscular Volume 81.8 fL (80-100); Monocytes Percent Auto 5.4 % (3-14); Neutrophils Absolute Auto 6300 /uL (3000-5900); Neutrophils Percent Auto 72.9 % (50-75); Platelet Count 385 X10^3/uL (150-400); Red Blood Cell Count 4.64 X10^6/uL (4.0-5.2); Red Cell Distribution Width 15.2 % (11.6-14.8); White Blood Cell Count 8.7 X10^3/uL (4.5-11.0)
[2017-12-26 11:25] LABS: INR 1.5 (0.9-1.3); Prothrombin Time 15.9 SECONDS (10.1-12.7)
[2017-12-26 11:30] LABS: Blood Urea Nitrogen 9 mg/dL (7-17); Calcium 10.2 mg/dL (8.4-10.2); Carbon Dioxide 28 mmol/L (22-32); Chloride 102 mmol/L (98-107); Estimated Glomerular Filt Rate 53.3 mL/min (>60); Glucose 120 mg/dL (80-110); HEMOLYSIS < 15 (0-50); Sodium 141 mmol/L (137-145)
--- NOTE | 2017-12-26 11:33 | DI.CT.S_ITS ---
PROCEDURE: CT HEAD/BRAIN WO CON INDICATIONS: dizziness TECHNIQUE: Noncontrast 4.5 mm thick angled axial sections acquired from the foramen magnum to the vertex, with coronal and sagittal reformats. For radiation dose reduction, the following was used: automated exposure control, adjustment of mA and/or kV according to patient size. COMPARISON: [facility], CT, CT HEAD/BRAIN WO CON, 12/07/2017, 12:28. FINDINGS: Image quality: Excellent. CSF spaces: Basal cisterns are patent. No extra-axial fluid collections. The ventricles are symmetric in size and shape. Brain: No intracranial bleeds or masses. There is cerebral volume loss for age, with resultant ventricular and sulcal prominence. There are periventricular and deep white matter chronic small vessel ischemic changes. There is intracranial internal carotid artery atherosclerosis. Focus of old ischemia is noted in the left carotid radiata. Skull and face: Calvarium and visualized facial bones appear intact, without suspicious lesions. Sinuses: Visualized sinuses and mastoids are clear. IMPRESSION: 1. No acute intracranial process. 2. Moderate atrophy and chronic microvascular ischemic changes. Dictated by: Janelle Fu M.D. on 12/26/2017 at 11:54 Approved by: Janelle Fu M.D. on 12/26/2017 at 11:56
[2017-12-26 11:41] LABS: Troponin I 0.021 ng/mL (0.01-0.034)
[2017-12-26 11:59] VITALS: BP 148/62; PULSE 69; RESP 23; O2SAT 99
[2017-12-26 12:00] LABS: Appearance Urine UA CLEAR; Bilirubin Urine UA NEGATIVE (NEGATIVE); Color Urine UA YELLOW; Glucose Urine UA NEGATIVE (Normal); Ketones Urine UA NEGATIVE (NEGATIVE); Leukocyte Esterase Urine UA TRACE (NEGATIVE); Nitrite Urine UA Negative (Negative); Occult Blood Urine UA TRACE-LYSED (Negative); Protein Urine UA NEGATIVE (Negative); Urobilinogen Urine UA 0.2 E.U./dL (0.2); pH Urine UA 7.5 (4.5-8.0)
[2017-12-26 12:16] LABS: Amorphous Sediment Urine 1+; Bacteria Urine Occasional (0-1); Culture Indicated Urine Specimen Cultured; RBC Urine 0-1/HPF (0-5/HPF); Squamous Epithelial Cell Urine 0-1 /HPF; WBC Urine 0-1/HPF (0-5/HPF)
--- NOTE | 2017-12-26 12:25 | ED.DIZZY ---
HPI - Dizziness General Chief Complaint: Dizziness Stated Complaint: Head feels funny, confusion Time Seen by Provider: 12/26/17 11:57 Source: patient and family Mode of arrival: ambulatory Limitations: no limitations History of Present Illness HPI Narrative: Patient states she has been getting episodes of ?had fuzziness? and feeling temporarily confused. Episodes can last up to an hour or 2. Patient has been seen several times for this various facilities and was actually admitted at [facility] for several days and worked up for the same. She is scheduled for an MRI next week to further evaluate these symptoms. Patient denies chest pain or shortness of breath; she denies any focal neurologic deficits. She states that she is feeling better now than she was about an hour ago. Patient's daughter and son-in-law provide some history separately regarding the episodes and states the patient just seems to be somewhat confused at the time of symptom onset. They are not sure when they should bring her to the hospital and when they should just keep her at home to see if things resolve on their own. Workup from [facility] was reviewed and is found the patient had a CT scan of the head that did not show any acute CVA, but did show evidence of cumulative damage from previous lacunar infarcts. Extensive workup was otherwise negative except for atrial fibrillation. MD complaint: other Timing: sudden onset Description: other (Confusion) History of similar episodes: Yes Severity: moderate Relieving factors: rest (And time) Exacerbating factors: nothing Associated symptoms: confusion and other Related Data Home Medications Medication Instructions Recorded Confirmed atorvastatin 80 mg PO DAILY 08/07/17 12/26/17 doxepin 100 mg PO BEDTIME 08/07/17 12/26/17 escitalopram oxalate 10 mg PO DAILY 08/07/17 12/26/17 gabapentin 300 mg PO BID 08/07/17 12/26/17 omeprazole magnesium [Prilosec OTC] 20 mg PO DAILY 08/07/17 12/26/17 zolpidem 5 mg PO BEDTIME PRN 08/07/17 12/26/17 gabapentin 600 mg PO BEDTIME 09/05/17 12/26/17 hydrocodone-acetaminophen 1 tab PO TID PRN 09/05/17 12/26/17 albuterol sulfate [ProAir HFA] 2 puff INHALATION Q4-6H PRN 12/07/17 12/26/17 diltiazem HCl [DILT-XR] 180 mg PO DAILY 12/07/17 12/26/17 furosemide 20 mg PO DAILY 12/07/17 12/26/17 levalbuterol tartrate [Xopenex HFA] 1 puff INHALATION Q4-6H PRN 12/07/17 12/26/17 lubiprostone [Amitiza] 24 mcg PO DAILY 12/07/17 12/26/17 nystatin 1 applic TOPICAL TID 12/07/17 12/26/17 warfarin 5 mg PO SUTUWEFRSA 12/07/17 12/26/17 aspirin 81 mg PO DAILY 12/26/17 12/26/17 fluticasone [Flonase Allergy 1 spray INTRANASAL DAILY 12/26/17 12/26/17 Relief] metoprolol succinate 50 mg PO BID 12/26/17 12/26/17 warfarin 7.5 mg PO MOTH 12/26/17 12/26/17 Allergies Allergy/AdvReac Type Severity Reaction Status Date / Time Sulfa (Sulfonamide Allergy Intermediate Rash Verified 12/26/17 10:49 Antibiotics) Review of Systems Review of Systems All systems reviewed & are unremarkable except as noted in HPI and below Constitutional Reports headache(s) (Head pressure and fuzziness) Eyes Denies change in vision, Denies eye discharge, Denies irritation and Denies loss of vision ENT Ears, Nose, Mouth, and Throat: Reports headache(s) (Head pressure and fuzziness) Cardiovascular Denies chest pain, Denies irregular heart rhythm, Denies lightheadedness, Denies palpitations, Denies dyspnea, Denies dyspnea on exertion and Denies orthopnea Respiratory Denies cough, Denies dyspnea, Denies dyspnea on exertion and Denies wheezing Gastrointestinal Gastrointestinal: Denies abdominal pain, Denies change in bowel habits, Denies diarrhea, Denies nausea and Denies vomiting Genitourinary Denies hematuria, Denies flank pain, Denies urinary incontinence and Denies urinary urgency Musculoskeletal Denies back pain, Denies muscle weakness, Denies numbness and Denies tingling Integumentary/Breasts Denies pruritus, Denies erythema, Denies rash and Denies wounds Neurologic Reports confusion, Reports headache(s) (Head pressure and fuzziness), Denies loss of vision, Denies numbness and Denies tingling Psychiatric Denies anxiety, Reports confusion, Denies depression, Denies homicidal ideation and Denies suicidal ideation Endocrine Denies palpitations Hematologic/Lymphatic Denies easy bruising Allergic/Immunologic Denies wheezing [facility] Medical History Impaired fasting glucose (Acute) Stroke (Acute) Hyperlipidemia (Acute) Hypertension (Acute) Chronic pain (Acute) Pulmonary fibrosis (Acute) Surgical History No pertinent past surgical history (Acute) Social History details: two years ago number of children: 2 lives independently: Yes caregiver/support person: Yes housing: apartment other: Denies alcohol drinking or cigarette smoking. Her son of overdose 1 w Smoking Status: Former smoker Exam Initial Vital Signs Initial Vital Signs: Vital Signs Temperature 98.1 F 12/26/17 10:49 Pulse Rate 75 12/26/17 10:49 Respiratory Rate 22 12/26/17 10:49 Blood Pressure 146/71 H 12/26/17 10:49 Pulse Oximetry 97 12/26/17 10:49 Const General: cooperative and well developed Nutritional Appearance: well nourished Orientation: alert, awake, oriented x3 and not confused [facility] Head: normocephalic and atraumatic Ears: external ears normal Nose: external nose normal and No nasal discharge Face and sinus: face symmetric and No dry mucous membranes Mouth: oral mucosae normal and moist mucous membranes Teeth and gingiva: dentition normal Eyes General: appearance normal, both eyes and all related structures Eyelids: eyelids normal Conjunctivae: conjunctivae normal Sclera: sclerae normal Pupils: PERRL EOM: EOM intact bilaterally Neck Neck: normal visual inspection, trachea midline, No lymphadenopathy, No midline deformity and No JVD Lymphatic: No lymphedema Chest Chest: normal inspection of the chest Resp Effort & Inspection: normal respiratory effort, able to speak in complete sentences, no respiratory distress and no use of accessory muscles Auscultation: clear to auscultation bilaterally, no rales, no rhonchi and no wheezes Cardio Rate: regular rate Rhythm: regular rhythm Heart Sounds: no click, no gallops, no murmurs and no rubs Pulses: normal peripheral pulses GI Inspection: non-distended Palpation: soft, no hepatosplenomegaly, No guarding, No pulsatile mass and No tender Auscultation: normal bowel sounds Back/Spine/Pelvis Back: No CVA tenderness Cervical Spine: cervical ROM normal and No pain with cervical ROM Thoracic/Lumbar Spine: thoracic and lumbar spine normal to inspection Skin General: no rashes or lesions noted, No jaundice and No petechiae Neuro General: alert, oriented x3, gait normal and no focal motor deficits Speech: speech normal Extrem General: full ROM, no clubbing, cyanosis or edema, no pedal edema and no calf tenderness Psych Appearance: well kempt Mental Status: mental status grossly normal Attitude: cooperative Thought Content: normal and suicidality Judgment: judgment good Course Course Narrative: I did have patient's records faxed over from [facility] and reviewed them extensively. I repeated labs today which were unremarkable. The patient symptoms had greatly improved by the time she presented to the emergency department, and at this point, given the recent admission, the consistency of symptoms with previous episodes, and the scheduled MRI, I did not feel further intervention was indicated in the emergency department. I have discussed this with the patient's son-in-law who is here with her at the end of her stay. The patient is cheerful and bright-eyed, and expresses a desire to go home. The son and I have discussed indications for having the patient return to the emergency department verses letting her stay at home and seen if symptoms resolve on their own. I suspect that the patient has either had very small TIAs as an explanation for her symptoms, or the symptoms may be due to after affects of the patient's former small infarcts. At this point, she is stable for discharge home. Orders Ordered: Discontinued Medications Sodium Chloride (Normal Saline 0.9%) 1,000 mls @ 1,000 mls/hr IV BOLUS ONE Stop: 12/26/17 14:29 Last Infusion: 12/26/17 15:02 Dose: 0 mls/hr Admin: 12/26/17 14:09 Dose: 1,000 mls/hr Vital Signs - 8 hr 12/26/17 10:49 12/26/17 11:59 Temperature 98.1 F Pulse Rate 75 69 Respiratory Rate 22 23 Blood Pressure 146/71 H Blood Pressure [Right Arm] 148/62 H Pulse Oximetry 97 99 MDM - Dizziness Medical Records Attestation: I reviewed the patient's medical records. Lab Data Attestation: I reviewed the patient's lab results. Result diagrams: 12/26/17 11:05 12/26/17 11:05 Lab Results 12/26/17 12/26/17 12/26/17 Range/Units 11:05 11:05 11:05 WBC 8.7 (4.5-11.0) X10^3/uL RBC 4.64 (4.0-5.2) X10^6/uL Hgb 12.7 (12.0-16.0) g/dL Hct 38.0 (36-46) % MCV 81.8 (80-100) fL MCH 27.3 (26-34) PG MCHC 33.3 (30-36) % RDW 15.2 H (11.6-14.8) % Plt Count 385 (150-400) X10^3/uL Neut % (Auto) 72.9 (50-75) % Lymph % (Auto) 19.7 L (25-40) % [place] % (Auto) 5.4 (3-14) % Eos % (Auto) 0.8 L (2-4) % Baso % (Auto) 1.2 (0-2) % Neut # (Auto) 6300 H (7028-9629) /uL PT 15.9 H (10.1-12.7) SECONDS INR 1.5 H (0.9-1.3) Sodium 141 (137-145) mmol/L Potassium 4.0 (3.4-5.1) mmol/L Chloride 102 (98-107) mmol/L Carbon Dioxide 28 (22-32) mmol/L BUN 9 (7-17) mg/dL Creatinine 1.00 (0.52-1.04) mg/dL Estimated GFR 53.3 L (>60) mL/min BUN/Creatinine Ratio 9.0 (6-22) Glucose 120 H (80-110) mg/dL Calcium 10.2 (8.4-10.2) mg/dL Troponin I 0.021 (0.01-0.034) ng/mL Urine Color Urine Appearance Urine pH (4.5-8.0) Ur Specific [place] (1.000-1.035) Urine Protein (Negative) Urine Glucose (UA) (Normal) g/dL Urine Ketones (NEGATIVE) Urine Occult Blood (Negative) Urine Nitrate (Negative) Urine Bilirubin (NEGATIVE) Urine Urobilinogen (0.2) E.U./dL Ur Leukocyte Esterase (NEGATIVE) Urine RBC (0-5/HPF) Urine WBC (0-5/HPF) Ur Squamous Epith Cells Amorphous Sediment Urine Bacteria (None) Ur Culture Indicated? Micro UA Comment 12/26/17 Range/Units 11:57 WBC (4.5-11.0) X10^3/uL RBC (4.0-5.2) X10^6/uL Hgb (12.0-16.0) g/dL Hct (36-46) % MCV (80-100) fL MCH (26-34) PG MCHC (30-36) % RDW (11.6-14.8) % Plt Count (150-400) X10^3/uL Neut % (Auto) (50-75) % Lymph % (Auto) (25-40) % [place] % (Auto) (3-14) % Eos % (Auto) (2-4) % Baso % (Auto) (0-2) % Neut # (Auto) (5872-3775) /uL PT (10.1-12.7) SECONDS INR (0.9-1.3) Sodium (137-145) mmol/L Potassium (3.4-5.1) mmol/L Chloride (98-107) mmol/L Carbon Dioxide (22-32) mmol/L BUN (7-17) mg/dL Creatinine (0.52-1.04) mg/dL Estimated GFR (>60) mL/min BUN/Creatinine Ratio (6-22) Glucose (80-110) mg/dL Calcium (8.4-10.2) mg/dL Troponin I (0.01-0.034) ng/mL Urine Color Yellow Urine Appearance Clear Urine pH 7.5 (4.5-8.0) Ur Specific [place] 1.010 (1.000-1.035) Urine Protein Negative (Negative) Urine Glucose (UA) Negative (Normal) g/dL Urine Ketones Negative (NEGATIVE) Urine Occult Blood Trace-lysed (Negative) Urine Nitrate Negative (Negative) Urine Bilirubin Negative (NEGATIVE) Urine Urobilinogen 0.2 (0.2) E.U./dL Ur Leukocyte Esterase Trace H (NEGATIVE) Urine RBC 0-1/hpf (0-5/HPF) Urine WBC 0-1/hpf (0-5/HPF) Ur Squamous Epith Cells 0-1 /hpf Amorphous Sediment 1+ Urine Bacteria Occasional (0-1) (None) Ur Culture Indicated? Specimen cultured Micro UA Comment Not Reportable ECG Data Attestation: I personally reviewed and interpreted this ECG as follows: (See below) Interpretation: Twelve lead EKG performed on December 26, 2017 at 11:30 a.m. Regular ventricular rhythm with a rate of 71 beats per minute QRS duration 83 milliseconds QTC interval 478 milliseconds Frequent PVCs noted with bigeminy noted Interpretation: Supraventricular rhythm, nonspecific ST T-wave abnormality, prolonged QT interval, abnormal EKG, as interpreted by ED MD JILL Narrative Medical decision making narrative: Patient and family have been advised to have patient follow up for her MRI as scheduled. We have discussed the usual indications for return. Discharge Plan Departure Patient Disposition: Home Clinical Impression: Acute confusion, Headache Discharge Date/Time: 12/26/17 16:05 Interventions: ED Discharge Assessment Last Done: 12/26/17 16:05 Instructions: DI for Headache, DI for Altered Mental Status Activity Restrictions/Additional Instructions: Your workup today does not show any acute issues. It is important that you follow-up for your MRI of the brain, as you have planned to do. Please also follow up with your primary care physician within next week. Prescriptions: No Action doxepin 50 mg Capsule 100 mg PO BEDTIME RF: 0 atorvastatin 80 mg Tablet 80 mg PO DAILY RF: 0 gabapentin 300 mg Capsule 300 mg PO BID RF: 0 zolpidem 5 mg Tablet 5 mg PO BEDTIME PRN (Reason: Sleep) RF: 0 escitalopram oxalate 20 mg Tablet 10 mg PO DAILY RF: 0 omeprazole magnesium [Prilosec OTC] 20 mg Tablet,Delayed Release (Dr/Ec) 20 mg PO DAILY RF: 0 metoprolol succinate 50 mg tablet extended release 24 hr 50 mg PO BID RF: 0 aspirin 81 mg Tablet,Delayed Release (Dr/Ec) 81 mg PO DAILY RF: 0 warfarin 5 mg Tablet 7.5 mg PO MOTH RF: 0 fluticasone [Flonase Allergy Relief] 50 mcg/actuation [place],Suspension 1 spray Intranasal DAILY RF: 0 hydrocodone-acetaminophen 5-325 mg tablet 1 tab PO TID PRN (Reason: Pain, Moderate) RF: 0 gabapentin 300 mg Capsule 600 mg PO BEDTIME RF: 0 nystatin 100,000 unit/gram Cream 1 applic TOPICAL TID RF: 0 warfarin 5 mg Tablet 5 mg PO SUTUWEFRSA RF: 0 furosemide 20 mg Tablet 20 mg PO DAILY RF: 0 albuterol sulfate [ProAir HFA] 90 mcg/actuation Hfa Aerosol Inhaler 2 puff INHALATION Q4-6H PRN (Reason: Shortness Of Breath) RF: 0 diltiazem HCl [DILT-XR] 180 mg Capsule,Ext.Rel 24h Degradable 180 mg PO DAILY RF: 0 levalbuterol tartrate [Xopenex HFA] 45 mcg/actuation Hfa Aerosol Inhaler 1 puff INHALATION Q4-6H PRN (Reason: Shortness Of Breath) RF: 0 lubiprostone [Amitiza] 24 mcg Capsule 24 mcg PO DAILY RF: 0 Referrals: Carissa Chen MD [Primary Care Provider] - ( Please call for the next available appointment to follow up your emergency department visit.)
[2017-12-26 12:30] VITALS: BP 122/61; PULSE 120; RESP 26; O2SAT 97
[2017-12-26 13:23] VITALS: BP 164/109; PULSE 71; RESP 25; O2SAT 95
[2017-12-26 14:08] VITALS: BP 136/70; PULSE 65; RESP 17; O2SAT 97
[2017-12-26] MEDS: SODIUM CHLORIDE 0.9% 1,000 ML 1000 ML IV (14:09)
[2017-12-26 15:29] VITALS: BP 147/93; PULSE 109; RESP 24; O2SAT 94
== END 2017-12-26 16:05 | disposition home or self-care (01) ==
PROVIDERS: Emergency Provider Emergency Medicine; Family Provider Internal Medicine; PCP Internal Medicine
DX: R41.0 Disorientation, unspecified (principal); R51 Headache
CPT/HCPCS: 36591; 70450; 71046; 80048; 81001; 84484; 85025; 85610; 87077; 87086; 87186; 93005; 93041; 96360; 99285

== ENCOUNTER 2018-01-23 14:58 | Emergency (ER) | payer MEDICARE, SELFPAY ==
[2017-08-07 20:18] VITALS: BMI 36.9
--- NOTE | 2018-01-23 15:03 | DI.RAD.S_ITS ---
PROCEDURE: XR CHEST 1V INDICATIONS: chest pain TECHNIQUE: One view of the chest was acquired. COMPARISON: [facility], CR, XR CHEST 1 VIEW, 12/07/2017, 22:32. [facility], CR, XR CHEST 2V, 12/26/2017, 11:06. [facility], CR, XR CHEST 1V, 12/07/2017, 14:20. FINDINGS: Surgical changes and devices: None. Lungs and pleura: No pleural effusions or pneumothorax. Diffuse interstitial prominence bilaterally appears unchanged. Mediastinum: Mediastinal contours appear normal. Heart size is mildly increased. Bones and chest wall: No suspicious bony lesions. Overlying soft tissues appear unremarkable. IMPRESSION: Mild chronic congestive heart failure. Dictated by: Destin Albarran M.D. on 01/23/2018 at 16:12 Approved by: Destin Albarran M.D. on 01/23/2018 at 16:13
[2018-01-23 15:07] VITALS: BP 101/45; PULSE 49; RESP 12; TEMP 36.9; O2SAT 94; BMI 35.9
--- NOTE | 2018-01-23 15:20 | ED.WEAKNESS ---
HPI - Weakness General Chief complaint: Weakness Stated complaint: Bradychardic Time Seen by Provider: 01/23/18 15:08 Source: patient Mode of arrival: EMS Limitations: no limitations History of Present Illness HPI Narrative: Patient is a 82-year-old female brought in by EMS. Patient states that she has been very fatigued and not feeling well for a long time now. She states that her home health nurse came today and noticed that her heart rate was in the 40s and given her fatigue thought that she had a come to the emergency department for evaluation. Patient states that she feels the same today that she has felt for several days/weeks. She has seen a inspector and hand packager in the past. She is scheduled for a nuclear stress test next week. She has a follow-up with her primary doctor tomorrow. She states that she has been taking her medications. Related Data Home Medications Medication Instructions Recorded Confirmed atorvastatin 80 mg PO DAILY 08/07/17 01/23/18 gabapentin 300 mg PO BID 08/07/17 01/23/18 omeprazole magnesium [Prilosec OTC] 20 mg PO DAILY 08/07/17 01/23/18 zolpidem 5 mg PO BEDTIME PRN 08/07/17 01/23/18 gabapentin 600 mg PO BEDTIME 09/05/17 01/23/18 hydrocodone-acetaminophen 1 tab PO TID PRN 09/05/17 01/23/18 albuterol sulfate [ProAir HFA] 2 puff INHALATION Q4-6H PRN 12/07/17 01/23/18 diltiazem HCl [DILT-XR] 180 mg PO DAILY 12/07/17 01/23/18 furosemide 20 mg PO DAILY 12/07/17 01/23/18 levalbuterol tartrate [Xopenex HFA] 1 puff INHALATION Q4-6H PRN 12/07/17 01/23/18 lubiprostone [Amitiza] 24 mcg PO DAILY 12/07/17 01/23/18 nystatin 1 applic TOPICAL TID 12/07/17 01/23/18 warfarin 5 mg PO SUTUWEFRSA 12/07/17 01/23/18 aspirin 81 mg PO DAILY 12/26/17 01/23/18 fluticasone [Flonase Allergy 1 spray INTRANASAL DAILY 12/26/17 01/23/18 Relief] metoprolol succinate 50 mg PO BID 12/26/17 01/23/18 warfarin 7.5 mg PO MOTH 12/26/17 01/23/18 doxepin 100 mg PO BEDTIME 01/23/18 01/23/18 escitalopram oxalate 10 mg PO DAILY 01/23/18 01/23/18 Allergies Allergy/AdvReac Type Severity Reaction Status Date / Time Sulfa (Sulfonamide Allergy Intermediate Rash Verified 12/26/17 10:49 Antibiotics) Review of Systems Constitutional Reports fatigue, Denies fever(s) and Reports lethargy ENT Ears, Nose, Mouth, and Throat: Denies vertigo and Denies dizziness Cardiovascular Denies chest pain, Denies lightheadedness, Denies palpitations, Denies dyspnea and Reports slow heart rate Respiratory Denies cough and Denies dyspnea Gastrointestinal Gastrointestinal: Denies abdominal pain Musculoskeletal Denies myalgias and Denies arthralgias Integumentary/Breasts Denies lesions and Denies rash Neurologic Denies confusion, Denies vertigo and Denies dizziness Psychiatric Denies confusion Endocrine Reports fatigue and Denies palpitations Hematologic/Lymphatic Denies easy bleeding and Denies easy bruising [facility] Medical History Impaired fasting glucose (Acute) Stroke (Acute) Hyperlipidemia (Acute) Hypertension (Acute) Chronic pain (Acute) Pulmonary fibrosis (Acute) Surgical History No pertinent past surgical history (Acute) Social History details: two years ago number of children: 2 lives independently: Yes caregiver/support person: Yes housing: apartment other: Denies alcohol drinking or cigarette smoking. Her son of overdose 1 w Smoking Status: Former smoker Exam Initial Vital Signs Initial Vital Signs: Vital Signs Temperature 98.4 F 01/23/18 15:07 Pulse Rate 49 L 01/23/18 15:07 Respiratory Rate 12 01/23/18 15:07 Blood Pressure 101/45 L 01/23/18 15:07 Pulse Oximetry 94 01/23/18 15:07 Const General: cooperative, healthy appearing, comfortable, well developed, well groomed and No acute distress Orientation: alert, awake and oriented x3 HENMT Head: normal to inspection and normocephalic Resp Effort & Inspection: normal respiratory effort Auscultation: clear to auscultation bilaterally Cardio Rate: bradycardic Rhythm: regular rhythm Pulses: radial pulses present GI Inspection: non-distended Palpation: soft and No tender Skin Lesions: no lesions Rashes: no rashes Neuro General: alert, awake and oriented x3 Speech: speech normal Extrem General: normal to inspection, capillary refill normal and No edema Psych Appearance: grossly normal and well kempt Course Orders Ordered: ED Orders 01/23/18 15:03 XR chest 1V Stat 01/23/18 15:11 EKG-12 Lead Stat 01/23/18 15:26 Complete Blood Count AUTO DIFF Stat Comprehensive Metabolic Panel Stat Lipase Stat Partial Thromboplastin Time Stat Prothrombin Time INR Stat Troponin & CK Cardiac Panel Stat Vital Signs - 8 hr 01/23/18 15:07 01/23/18 16:00 01/23/18 17:07 Temperature 98.4 F Pulse Rate 49 L 47 L 40 L Respiratory Rate 12 18 14 Blood Pressure 101/45 L Blood Pressure [Left Arm] 108/56 L 115/48 L Pulse Oximetry 94 95 97 MDM - Weakness Lab Data Attestation: I reviewed the patient's lab results. Result diagrams: 01/23/18 15:26 01/23/18 15:26 Lab Results 01/23/18 01/23/18 01/23/18 Range/Units 15:26 15:26 15:26 WBC 9.0 (4.5-11.0) X10^3/uL RBC 4.35 (4.0-5.2) X10^6/uL Hgb 12.1 (12.0-16.0) g/dL Hct 36.9 (36-46) % MCV 84.9 (80-100) fL MCH 27.8 (26-34) PG MCHC 32.8 (30-36) % RDW 16.4 H (11.6-14.8) % Plt Count 305 (150-400) X10^3/uL Neut % (Auto) 61.0 (50-75) % Lymph % (Auto) 26.5 (25-40) % [place] % (Auto) 8.1 (3-14) % Eos % (Auto) 3.5 (2-4) % Baso % (Auto) 0.9 (0-2) % Neut # (Auto) 5500 (9224-0614) /uL PT 29.3 H (10.1-12.7) SECONDS INR 2.7 H (0.9-1.3) APTT 44 H D (26.4-36.2) SECONDS Sodium 141 (137-145) mmol/L Potassium 4.1 (3.4-5.1) mmol/L Chloride 101 (98-107) mmol/L Carbon Dioxide 29 (22-32) mmol/L BUN 10 (7-17) mg/dL Creatinine 1.10 H (0.52-1.04) mg/dL Estimated GFR 47.8 L (>60) mL/min BUN/Creatinine Ratio 9.1 (6-22) Glucose 88 (80-110) mg/dL Calcium 9.1 (8.4-10.2) mg/dL Total Bilirubin 0.6 (0.2-1.3) mg/dL AST 20 (14-36) IU/L ALT 21 (9-52) IU/L Alkaline Phosphatase 99 (38-126) U/L Total Creatine Kinase 27 L (30-135) U/L CK-MB (CK-2) TNP CK-MB (CK-2) Rel Index TNP Troponin I < 0.012 (0.01-0.034) ng/mL Total Protein 7.3 (6.3-8.2) g/dL Albumin 4.2 (3.5-5.0) g/dL Globulin 3.1 (1.7-4.1) g/dL Albumin/Globulin Ratio 1.4 (1.0-2.8) Lipase 42 (23-300) U/L Imaging Data Chest x-ray: Radiologist's impression: [address] [address] XRay Report Signed Patient: Tali Burton CHILO#: [id number] : 8Acct:[id number] Age/Sex: 82 / FDate of Service: 01/23/18 Loc: ED Accession Number: [id number] Procedure: XR chest 1V Ordering Provider: Tony Wakefield D.O. PROCEDURE: XR CHEST 1V INDICATIONS: chest pain TECHNIQUE: One view of the chest was acquired. COMPARISON: [facility], CR, XR CHEST 1 VIEW, 12/07/2017, 22:32. [facility], CR, XR CHEST 2V, 12/26/2017, 11:06. [facility], CR, XR CHEST 1V, 12/07/2017, 14:20. FINDINGS: Surgical changes and devices: None. Lungs and pleura: No pleural effusions or pneumothorax. Diffuse interstitial prominence bilaterally appears unchanged. Mediastinum: Mediastinal contours appear normal. Heart size is mildly increased. Bones and chest wall: No suspicious bony lesions. Overlying soft tissues appear unremarkable. IMPRESSION: Mild chronic congestive heart failure. Dictated by: Destin Albarran M.D. on 01/23/2018 at 16:12 Approved by: Destin Albarran M.D. on 01/23/2018 at 16:13 ECG Data Attestation: I personally reviewed and interpreted this ECG as follows: Prior ECG tracings: not available for review Interpretation: Sinus rhythm Bradycardia Ventricular rate of [address] T wave changes MDM Narrative Medical decision making narrative: Patient is bradycardic today but it is a sinus bradycardia. Her heart rate did improve with flutter kicks to the mid 60s and 70s. She has had no change in her fatigue for some time now. She is on diltiazem and also metoprolol. I discussed the case with her inspector and hand packager from [facility] who stated that given her lack of change in symptoms for some time and the fact that she is on a beta-lv and also calcium channel lv that decreasing her metoprolol from 50 mg 2 times a day to 25 mg 2 times a day would be a start to see if this does not help her bradycardia. Patient does have a follow up with her primary care doctor tomorrow. She was instructed to keep this appointment. She is also instructed to contact her inspector and hand packager tomorrow for a follow-up. She was given return precautions. She expressed understanding and agreement with this plan. Discharge Plan Departure Patient Disposition: Home Clinical Impression: Bradycardia Discharge Date/Time: 01/23/18 17:55 Interventions: ED Discharge Assessment Last Done: 01/23/18 17:53 Instructions: DI for Bradycardia Activity Restrictions/Additional Instructions: after my discussion with her inspector and hand packager today the decision was made to decrease her metoprolol from 50 mg 2 times a day to 25 mg 2 times a day. You can start at this evening. Keep her scheduled appointment that you have with her primary doctor tomorrow. I would also recommend you contact your inspector and hand packager office tomorrow for follow-up. Return to the emergency department for any new or worsening symptoms. Prescriptions: No Action atorvastatin 80 mg Tablet 80 mg PO DAILY RF: 0 gabapentin 300 mg Capsule 300 mg PO BID RF: 0 zolpidem 5 mg Tablet 5 mg PO BEDTIME PRN (Reason: Sleep) RF: 0 omeprazole magnesium [Prilosec OTC] 20 mg Tablet,Delayed Release (Dr/Ec) 20 mg PO DAILY RF: 0 metoprolol succinate 50 mg tablet extended release 24 hr 50 mg PO BID RF: 0 aspirin 81 mg Tablet,Delayed Release (Dr/Ec) 81 mg PO DAILY RF: 0 warfarin 5 mg Tablet 7.5 mg PO MOTH RF: 0 fluticasone [Flonase Allergy Relief] 50 mcg/actuation [place],Suspension 1 spray Intranasal DAILY RF: 0 hydrocodone-acetaminophen 5-325 mg tablet 1 tab PO TID PRN (Reason: Pain, Moderate) RF: 0 gabapentin 300 mg Capsule 600 mg PO BEDTIME RF: 0 nystatin 100,000 unit/gram Cream 1 applic TOPICAL TID RF: 0 warfarin 5 mg Tablet 5 mg PO SUTUWEFRSA RF: 0 furosemide 20 mg Tablet 20 mg PO DAILY RF: 0 albuterol sulfate [ProAir HFA] 90 mcg/actuation Hfa Aerosol Inhaler 2 puff INHALATION Q4-6H PRN (Reason: Shortness Of Breath) RF: 0 diltiazem HCl [DILT-XR] 180 mg Capsule,Ext.Rel 24h Degradable 180 mg PO DAILY RF: 0 levalbuterol tartrate [Xopenex HFA] 45 mcg/actuation Hfa Aerosol Inhaler 1 puff INHALATION Q4-6H PRN (Reason: Shortness Of Breath) RF: 0 lubiprostone [Amitiza] 24 mcg Capsule 24 mcg PO DAILY RF: 0 doxepin 100 mg Capsule 100 mg PO BEDTIME RF: 0 escitalopram oxalate 10 mg Tablet 10 mg PO DAILY RF: 0
[2018-01-23 15:34] LABS: Add Manual Diff / Slide Review NO; Basophils Percent Auto 0.9 % (0-2); Eosinophils Percent Auto 3.5 % (2-4); Hematocrit 36.9 % (36-46); Hemoglobin 12.1 g/dL (12.0-16.0); Lymphocytes Percent Auto 26.5 % (25-40); Mean Corpuscular HGB Conc 32.8 % (30-36); Mean Corpuscular Hemoglobin 27.8 PG (26-34); Mean Corpuscular Volume 84.9 fL (80-100); Monocytes Percent Auto 8.1 % (3-14); Neutrophils Absolute Auto 5500 /uL (3000-5900); Platelet Count 305 X10^3/uL (150-400); Red Blood Cell Count 4.35 X10^6/uL (4.0-5.2); Red Cell Distribution Width 16.4 % (11.6-14.8)
[2018-01-23 15:42] LABS: INR 2.7 (0.9-1.3); Prothrombin Time 29.3 SECONDS (10.1-12.7)
[2018-01-23 15:45] LABS: PTT Partial Thromboplastin Tim 44 SECONDS (26.4-36.2)
[2018-01-23 15:46] LABS: Alanine Aminotransferase 21 IU/L (9-52); Albumin 4.2 g/dL (3.5-5.0); Albumin Globulin Ratio 1.4 (1.0-2.8); Alkaline Phosphatase 99 U/L (38-126); Aspartate Aminotransferase 20 IU/L (14-36); BUN Creatinine Ratio 9.1 (6-22); Bilirubin Total 0.6 mg/dL (0.2-1.3); Blood Urea Nitrogen 10 mg/dL (7-17); Calcium 9.1 mg/dL (8.4-10.2); Carbon Dioxide 29 mmol/L (22-32); Chloride 101 mmol/L (98-107); Creatine Kinase 27 U/L (30-135); Estimated Glomerular Filt Rate 47.8 mL/min (>60); Globulin 3.1 g/dL (1.7-4.1); Glucose 88 mg/dL (80-110); HEMOLYSIS < 15 (0-50); Lipase 42 U/L (23-300); Potassium 4.1 mmol/L (3.4-5.1); Sodium 141 mmol/L (137-145); Total Protein 7.3 g/dL (6.3-8.2)
[2018-01-23 16:00] VITALS: BP 108/56; PULSE 47; RESP 18; O2SAT 95
[2018-01-23 16:03] LABS: Troponin I < 0.012 ng/mL (0.01-0.034)
[2018-01-23 17:07] VITALS: BP 115/48; PULSE 40; RESP 14; O2SAT 97
== END 2018-01-23 17:55 | disposition home or self-care (01) ==
PROVIDERS: Emergency Provider Emergency Medicine; PCP Internal Medicine
DX: R00.1 Bradycardia, unspecified (principal)
CPT/HCPCS: 36415; 71045; 80053; 82550; 83690; 84484; 85025; 85610; 85730; 93005; 93041; 99284; 99285

== ENCOUNTER → 2018-01-30 09:30 | Outpatient (CLI) | payer MEDICARE, SELFPAY ==
[2017-08-07 20:18] VITALS: BMI 36.9
--- NOTE | 2018-01-30 | DI.NM.S_ITS ---
PROCEDURE: NM ERNIE PERF SPECT R&S PHARM Rest and pharmacological stress myocardial perfusion SPECT with gated imaging and ejection fraction RADIOPHARMACEUTICAL: 27.2 mCi Tc-99m tetrafosmin IV at rest and 14.9 mCi Tc-99m tetrafosmin IV at peak effect of pharmacological stress. Cue-mbf-gnzcrrbt was performed. INDICATIONS: Unspecified atrial fibrillation TECHNIQUE: Radiopharmaceutical was injected at peak stress test, and also at rest. SPECT images were obtained. SPECT myocardial perfusion images were displayed in short axis, horizontal long axis, and vertical long axis views. Gated images were reviewed using [place] [facility] software. COMPARISON: None. CARDIAC STRESS: A pharmacologic stress test was performed under the supervision of an attending staff, using an infusion of lexiscan 0.4mg IV X1. Hemodynamic data: There is normal blood pressure and heart rate response to pharmacologic stress. Symptoms: The patient denied anginal chest pain. Aminophylline: none EKG: Resting ECG shows sinus rhythm with non-specific T wave changes. No diagnostic changes of ischemia with lexiscan; frequent PVCs present. FINDINGS: Raw data: There is good myocardial uptake of radiotracer. No significant motion artifacts. Yslm-fk-nbacz ratio is 0.32 (normal is less than 0.38 for tetrafosmin tracer). Left ventricle function: Gated images demonstrate normal left ventricular wall thickening. No segmental wall motion abnormalities. No transient ischemic dilation; TID is 0.89 (normal less than 1.3). Left ventricle resting end diastolic volume is 114 mL. Left ventricle stress ejection fraction is 65%; normal range is above 45%. Myocardial perfusion: There is a fixed basal anterior wall defect that is probably breast attenuation but prior old infarction can not be excluded. There is a very small basal lateral wall defect that is suggestive of small amount of ischemia. SSS 1, SRS 0. IMPRESSION: Abnormal pharmaceutical nuclear stress test. 1) There is a very small basal lateral wall defect that is suggestive of small amount of ischemia. SSS 1, SRS 0. There is a fixed basal anterior wall defect that is probably breast attenuation but prior old non-transmural infarction can not be excluded. 2) Normal left ventricular size, wall motion, and systolic function (EF post stress is 65%). 3) No ECG changes suggestive of ischemia. Frequent PVCs during study. 4) No angina during the study. 5) No prior nuclear stress test available for comparison. Dictated by: Jose Parham MD on 01/31/2018 at 15:17 Approved by: Jose Parham MD on 01/31/2018 at 15:23
--- NOTE | 2018-01-30 12:03 | PM.TREADMILL ---
Cardiac Stress Test Report Referral & Results Date Patient Seen: 01/30/18 Requesting provider: Jass Hunt Indication: Atrial fibrillation Rest ECG: Unremarkable Procedure Note: After both written and verbal informed consent the patient had an IV started by the diagnostic imaging RN and then was hooked up to the treadmill monitoring system. The patient was then injected with the Janee scan material. The Cardiolite was then immediately administered. Monitoring was discontinued after another 2-3 minutes Patient normal response to infuse materials. No active symptoms. Impression: Normal response to materials as above Please see perfusion imaging report for details regarding potential ischemia Please note: Actual ECG tracings can be found in the PACS system.
== END ==
PROVIDERS: PCP Internal Medicine; Visit Provider Internal Medicine Cardiovascular Disease
DX: I48.91 Unspecified atrial fibrillation (principal); R94.39 Abnormal result of other cardiovascular function study
CPT/HCPCS: 78452; 93016; 93017; 93018; A9502; J2785

== ENCOUNTER → 2018-03-13 15:49 | Outpatient (CLI) | payer MEDICARE, SELFPAY ==
[2017-08-07 20:18] VITALS: BMI 36.9
--- NOTE | 2018-03-13 | DI.MRI.S_ITS ---
PROCEDURE: MR STROKE Pre- and post-contrast brain MRI, non-contrast brain MR angiogram, pre- and postcontrast neck MR angiogram INDICATIONS: SLURRED SPEECH TECHNIQUE: Brain: Noncontrast axial T1 spin echo, axial T2 fast spin echo, sagittal and axial FLAIR, coronal T2 fast spin echo, axial gradient echo, axial diffusion and ADC through the brain. After the administration of contrast, axial 3D VIBE of the cranial vasculature and brain. Brain MRA: Non-contrast 3-D time of flight MR angiogram, with multiple cyutcrg-lvbufbeua-hevokedosh (MIP) reformats performed. Neck MRA: Axial and sagittal TruFISP through the neck. Coronal dynamic MR angiogram during administration of contrast in the arterial and venous phases, with 3-dimenstional ytifgau-twhuefaxl-nldbubgnxk (MIP) reformats constructed from subtraction images. COMPARISON: [facility], CT, CT HEAD/BRAIN WO CON, 12/26/2017, 11:30. FINDINGS: Image quality: Excellent. BRAIN: CSF spaces: Ventricles are normal in size and shape. Basal cisterns are patent. No extra-axial fluid collections. Brain: No intracranial bleeds or mass effects. Scattered small white matter signal changes, probably represent chronic microvascular ischemic disease, versus statistically less likely demyelination or other infectious/inflammatory/neurodegenerative etiology, technically nonspecific. Wyman-white matter interface is normal. Diffusion weighted images show no acute ischemic insults. Brainstem appears normal. Normal intravascular flow voids are present. No abnormal intracranial enhancement. Skull and face: Calvarial marrow signal is normal. Orbits appear normal. Sinuses: Sinuses and mastoids are clear. BRAIN MR ANGIOGRAM: Anterior circulation: Intracranial internal carotid arteries are normal in size and enhancement. The flow within the paired anterior cerebral arteries is normal and symmetric. The flow within the middle cerebral arteries is normal and symmetric. The anterior communicating artery is seen. No stenoses, occlusions, or aneurysms. Posterior circulation: The visualized portions of the vertebral arteries demonstrate normal caliber, and join to form a normal appearing basilar artery. origin of the right BERRY PLANTER, anatomic variant. High-grade focal stenosis/occlusion involving the left P2 segment with distal reconstitution NECK MR ANGIOGRAM: Carotids: Great vessels demonstrate a conventional anatomy as they arise from the aortic arch. The origins of the common carotid arteries appear patent. The calibers and courses of both common carotid arteries are normal. The bifurcation regions appear normal bilaterally. Mild narrowing of the origin of left ICA, probably 10%. 50% focal stenosis of the proximal right ICA Posterior circulation: The origin of the right vertebral artery appears patent. The origin of the left vertebral artery is not well-seen. Dominant left vertebral artery. More superior portions of both vertebral arteries demonstrate normal course and caliber, and join to form a normal appearing basilar artery. Miscellaneous: Subclavian arteries appear patent. Pre-contrast images through the neck show no soft tissue abnormalities. IMPRESSION: BRAIN MRI: No evidence of acute ischemia. Scattered small white matter signal changes, probably represent chronic microvascular ischemic disease, versus statistically less likely demyelination or other infectious/inflammatory/neurodegenerative etiology, technically nonspecific. No abnormal enhancement. BRAIN MR ANGIOGRAM: High-grade focal stenosis or occlusion of the left P2 segment with distal reconstitution. NECK MR ANGIOGRAM: 50% focal stenosis of the proximal right ICA. Further assessment with dedicated carotid ultrasound could be performed as clinically warranted No hemodynamic significant stenosis of the left ICA. Dominant left vertebral artery Dictated by: Chilo Haas M.D. on 03/14/2018 at 8:52 Approved by: Chilo Haas M.D. on 03/14/2018 at 9:15
[2018-03-13 16:34] LABS: BUN Creatinine Ratio 10.9 (6-22); Blood Urea Nitrogen 12 mg/dL (7-17); Estimated Glomerular Filt Rate 47.8 mL/min (>60)
== END ==
PROVIDERS: PCP Internal Medicine; Visit Provider Internal Medicine
DX: R47.81 Slurred speech (principal); I65.21 Occlusion and stenosis of right carotid artery; I10 Essential (primary) hypertension
CPT/HCPCS: 36415; 70553; 82565; 84520; A9579

== ENCOUNTER → 2018-05-09 11:06 | Outpatient (CLI) | payer MEDICARE, SELFPAY ==
[2017-08-07 20:18] VITALS: BMI 36.9
--- NOTE | 2018-05-09 | DI.RAD.S_ITS ---
PROCEDURE: XR KNEE RT 1TO2V INDICATIONS: PAIN IN RIGHT KNEE TECHNIQUE: 2 views of the knee were acquired. COMPARISON: None. FINDINGS: Bones: No fractures or dislocations. There are faintly visualized suspicious bony calcific lesions, potentially representing chondroid matrix tumor within the distal diaphysis and metadiaphyseal junction. There is moderately severe degenerative knee joint osteoarthritis greater at the lateral compartment than the medial compartment. Soft tissues: Small to moderate suprapatellar joint effusion, without visualized intra-articular loose body. No suspicious soft tissue calcifications. IMPRESSION: Asymmetric greater degenerative knee joint osteoarthritis is seen at the lateral compartment than the medial compartment, with small to moderate suprapatellar joint effusion. Scattered surgical clips are seen in the soft tissues ventral to the knee. There is faint heterogeneous calcifications within the medullary space of the distal femoral diaphysis and metadiaphysis, potentially a chondroid tumor matrix. Dictated by: Willie Weeks M.D. on 05/09/2018 at 12:04 Approved by: Willie Weeks M.D. on 05/09/2018 at 12:06
== END ==
PROVIDERS: PCP Internal Medicine; Visit Provider Internal Medicine
DX: M25.561 Pain in right knee (principal); M17.11 Unilateral primary osteoarthritis, right knee
CPT/HCPCS: 73560

== ENCOUNTER 2018-08-29 08:23 | Inpatient (IN) | payer MEDICARE, SELFPAY ==
[2017-08-07 20:18] VITALS: BMI 36.9
[2018-08-29] VITALS (19 sets, daily range): BP systolic 106–159; BP diastolic 48–111; PULSE 95–180; RESP 18–28; TEMP 36.4–37.9; O2SAT 90–97; BMI 35.4; BMI 34.5
--- NOTE | 2018-08-29 08:45 | DI.RAD.S_ITS ---
PROCEDURE: XR CHEST 1V INDICATIONS: sob, aloc TECHNIQUE: One view of the chest was acquired. COMPARISON: [facility], CR, XR CHEST 1V, 01/23/2018, 15:12. FINDINGS: Surgical changes and devices: None. Lungs and pleura: Mild pulmonary consolidation is present at the right lung base. There may be minimal consolidation at the left lung base, as well. No large effusion or pneumothorax is evident. There is mild scarring in the lung apices. Mediastinum: Mediastinal contours appear normal. Heart size is normal. Bones and chest wall: No suspicious bony lesions. Overlying soft tissues appear unremarkable. IMPRESSION: Mild bibasilar atelectasis versus scarring. Please correlate clinically to exclude superimposed pneumonia. Dictated by: Lenny Doyle M.D. on 08/29/2018 at 8:26 Approved by: Lenny Doyle M.D. on 08/29/2018 at 8:30
--- NOTE | 2018-08-29 08:47 | PC.NURSE ---
per caregiver pt describes the ear pain as something digging into ear more so to right ear.
--- NOTE | 2018-08-29 08:49 | ED_ITS ---
HPI - Weakness General Chief complaint: Weakness Stated complaint: Not being normal narthargic Time Seen by Provider: 08/29/18 08:29 Source: patient and other (Caregiver) Mode of arrival: wheelchair Limitations: altered mental status (Confusion) History of Present Illness HPI Narrative: Patient is brought to the emergency department by her caregiver for confusion and not feeling well for the last week. Patient states she ?just has not felt well?, but cannot elaborate further. She states that she has not had any pain in her chest, though she has chronic atrial fibrillation and sometimes feels some palpitations. However, she is not having palpitations currently. Patient denies nausea or vomiting. She states she has some chronic shortness of breath from pulmonary fibrosis, but has had no cough or fever. Patient is unable to say whether her shortness of breath is at baseline or not. Patient cannot say whether she has had diarrhea. She states she has had dysuria for about 2 months, she thinks. No other specific complaints at this time. Patient states again that she just ?does not feel good?. Related Data Home Medications Medication Instructions Recorded Confirmed atorvastatin 80 mg PO DAILY 08/07/17 01/23/18 gabapentin 300 mg PO BID 08/07/17 01/23/18 omeprazole magnesium [Prilosec OTC] 20 mg PO DAILY 08/07/17 01/23/18 zolpidem 5 mg PO BEDTIME PRN 08/07/17 01/23/18 gabapentin 600 mg PO BEDTIME 09/05/17 01/23/18 hydrocodone-acetaminophen 1 tab PO TID PRN 09/05/17 01/23/18 albuterol sulfate [ProAir HFA] 2 puff INHALATION Q4-6H PRN 12/07/17 01/23/18 diltiazem HCl [DILT-XR] 180 mg PO DAILY 12/07/17 01/23/18 furosemide 20 mg PO DAILY 12/07/17 01/23/18 levalbuterol tartrate [Xopenex HFA] 1 puff INHALATION Q4-6H PRN 12/07/17 01/23/18 lubiprostone [Amitiza] 24 mcg PO DAILY 12/07/17 01/23/18 nystatin 1 applic TOPICAL TID 12/07/17 01/23/18 warfarin 5 mg PO SUTUWEFRSA 12/07/17 01/23/18 aspirin 81 mg PO DAILY 12/26/17 01/23/18 fluticasone propionate [Flonase 1 spray INTRANASAL DAILY 12/26/17 01/23/18 Allergy Relief] metoprolol succinate 50 mg PO BID 12/26/17 01/23/18 warfarin 7.5 mg PO MOTH 12/26/17 01/23/18 doxepin 100 mg PO BEDTIME 01/23/18 01/23/18 escitalopram oxalate 10 mg PO DAILY 01/23/18 01/23/18 Allergies Allergy/AdvReac Type Severity Reaction Status Date / Time Sulfa (Sulfonamide Allergy Intermediate Rash Verified 08/29/18 09:04 Antibiotics) Review of Systems Constitutional Denies chills, Denies fever(s), Denies lethargy, Reports malaise and Denies weakness Eyes Denies change in vision, Denies eye discharge, Denies irritation and Denies loss of vision ENT Ears, Nose, Mouth, and Throat: Denies change in voice, Denies neck pain and Denies sore throat Cardiovascular Denies chest pain, Denies irregular heart rhythm, Denies lightheadedness, Denies palpitations, Denies dyspnea, Denies dyspnea on exertion and Denies orthopnea Respiratory Denies cough, Denies dyspnea, Denies dyspnea on exertion and Denies wheezing Gastrointestinal Gastrointestinal: Denies abdominal pain, Denies change in bowel habits, Denies diarrhea, Denies nausea and Denies vomiting Genitourinary Denies hematuria, Denies flank pain, Denies urinary incontinence and Denies urinary urgency Musculoskeletal Denies neck pain Integumentary/Breasts Denies pruritus, Denies erythema, Denies rash and Denies wounds Neurologic Denies confusion, Denies loss of vision and Denies weakness Psychiatric Denies anxiety, Denies confusion, Denies depression, Denies homicidal ideation and Denies suicidal ideation Endocrine Denies palpitations Hematologic/Lymphatic Denies easy bruising Allergic/Immunologic Denies wheezing [facility] Medical History Impaired fasting glucose (Acute) Stroke (Acute) Hyperlipidemia (Acute) Hypertension (Acute) Chronic pain (Acute) Pulmonary fibrosis (Acute) Surgical History No pertinent past surgical history (Acute) Social History details: two years ago number of children: 2 lives independently: Yes caregiver/support person: Yes housing: apartment other: Denies alcohol drinking or cigarette smoking. Her son of overdose 1 w Smoking Status: Former smoker Social History details: two years ago number of children: 2 household members: caregiver and none lives independently: Yes caregiver/support person: Yes housing: apartment other: Denies alcohol drinking or cigarette smoking. Her son of overdose 1 w Smoking Status: Former smoker Exam Initial Vital Signs Initial Vital Signs: Vital Signs Temperature 98.8 F 08/29/18 08:33 Pulse Rate 120 H 08/29/18 08:33 Respiratory Rate 22 08/29/18 08:33 Blood Pressure 159/102 H 08/29/18 08:33 Pulse Oximetry 96 08/29/18 08:33 Const General: cooperative and well developed Nutritional Appearance: well nourished Orientation: alert, awake and confused [facility] Head: normocephalic and atraumatic Ears: external ears normal and TM's normal bilaterally Nose: external nose normal and No nasal discharge Face and sinus: face symmetric and No dry mucous membranes Mouth: oral mucosae normal and moist mucous membranes Teeth and gingiva: dentition normal Eyes General: appearance normal, both eyes and all related structures Eyelids: eyelids normal Conjunctivae: conjunctivae normal Sclera: sclerae normal Pupils: PERRL EOM: EOM intact bilaterally Neck Neck: normal visual inspection, trachea midline, No lymphadenopathy, No midline deformity and No JVD Lymphatic: No lymphedema Chest Chest: normal inspection of the chest Resp Effort & Inspection: normal respiratory effort, able to speak in complete sentences, no respiratory distress and no use of accessory muscles Auscultation: clear to auscultation bilaterally, no rales, no rhonchi and no wh eezes Cardio Rate: tachycardic Rhythm: abnormal rhythm Heart Sounds: no click, no gallops, no murmurs and no rubs Pulses: normal peripheral pulses GI Inspection: non-distended Palpation: soft, no hepatosplenomegaly, No guarding, No pulsatile mass and No tender Auscultation: normal bowel sounds Back/Spine/Pelvis Back: No CVA tenderness Cervical Spine: cervical ROM normal and No pain with cervical ROM Thoracic/Lumbar Spine: thoracic and lumbar spine normal to inspection Skin General: no rashes or lesions noted, No jaundice and No petechiae Neuro General: alert, awake and no focal motor deficits Cranial Nerves: CN's II-XI intact bilaterally Speech: speech normal Motor: muscle tone normal throughout Sensory Exam: no sensory deficits noted Extrem General: full ROM, no clubbing, cyanosis or edema, no pedal edema and no calf tenderness Psych Appearance: well kempt Mental Status: mental status grossly normal Attitude: cooperative Thought Content: normal and suicidality Judgment: judgment good Course Course Narrative: The patient was worked up broadly for her symptoms, and treated with Cardizem for a trial fibrillation with rapid ventricular response. The initial Cardizem dose did improve the patient's heart rate to the low 100s, but the rate began to creep up again. The patient pulled her IV out, and seemed somewhat more confused than before. I reviewed the patient's prior records, and found the patient had been in a number of times for episodes of increased confusion. The patient's workup here has been negative, but I felt that given the patient's independent living status, and her confused mental state, that she was not safe to go back to her apartment by herself. Additionally, she only had a memory care program resident for a couple hours of the day, and the patient's family did not live close by. IV was replaced, and a 2nd dose of Cardizem was ordered, as the patient's heart rate was in the 120s. I spoke with Dr. Ardon, who agreed to admit the patient to her service for atrial fibrillation with RVR and for confusion/altered level of consciousness. Patient's son was informed. Orders Ordered: ED Orders 08/29/18 14:04 Education, smoking cessation ONGOING 08/29/18 14:07 Consult to Discharge Planning Routine Consult to Occupational Therapy Evaluate & Treat Consult to Physical Therapy Evaluate & Treat Consult to Speech Therapy Evaluate & Treat Education, smoking cessation ONGOING 08/29/18 17:11 Prothrombin Time INR Routine 08/30/18 05:00 Basic Metabolic Panel Routine Complete Blood Count AUTO DIFF Routine 08/30/18 14:07 MR stroke Stat Acetaminophen (Tylenol) 650 mg PO Q6H PRN PRN Reason: As Needed for Fever/Mild Pain Albuterol (Ventolin Hfa) 2 puff INH Q4H PRN PRN Reason: Shortness Of Breath Aspirin (Aspirin Ec) 81 mg PO DAILY [facility] Atorvastatin Calcium (Lipitor) 80 mg PO DAILY [facility] Diltiazem HCl (Cardizem Cd) 180 mg PO DAILY [facility] Doxepin HCl (Sinequan) 100 mg PO BEDTIME [facility] Escitalopram Oxalate (Lexapro) 10 mg PO DAILY [facility] Fluticasone Propionate (Flonase) 1 spray NASAL DAILY [facility] Furosemide (Lasix) 20 mg PO DAILY [facility] Gabapentin (Neurontin) 300 mg PO 0900,1200 [facility] Gabapentin (Neurontin) 600 mg PO BEDTIME [facility] Dextrose/Sodium Chloride (Dextrose 5%-0.45% Ns) 1,000 mls @ 100 mls/hr IV CONT [facility] Last Admin: 08/29/18 16:35 Dose: 100 mls/hr Levalbuterol HCl (Xopenex Hfa) 1 puff INH Q4H PRN PRN Reason: Shortness Of Breath Metoprolol Succinate (Toprol Xl) 50 mg PO BID [facility] Metoprolol Tartrate (Lopressor) 5 mg IV Q2HR PRN PRN Reason: Heart Rate- High Last Admin: 08/29/18 19:04 Dose: 5 mg Lubiprostone [ (Amitiza] 24 Mcg) 24 mcg PO DAILY [facility] Nystatin (Nystatin) 1 applic TOP TID [facility] Last Admin: 08/29/18 17:51 Dose: 1 applic Ondansetron HCl (Zofran) 4 mg IV Q8HR PRN PRN Reason: Nausea And Vomiting Pantoprazole Sodium (Protonix) 20 mg PO DAILY [facility] Warfarin Sodium (Coumadin) 5 mg PO SuTuWeFrSa@1700 [facility] Last Admin: 08/29/18 17:51 Dose: 5 mg Warfarin Sodium (Coumadin) 7.5 mg PO MoTh@1700 [facility] Zolpidem Tartrate (Ambien) 5 mg PO BEDTIME PRN PRN Reason: Sleep Discontinued Medications Diltiazem HCl (Cardizem) 20 mg IV NOW ONE Stop: 08/29/18 09:28 Last Admin: 08/29/18 09:44 Dose: 20 mg Diltiazem HCl (Cardizem) 20 mg IV NOW ONE Stop: 08/29/18 11:33 Last Admin: 08/29/18 12:18 Dose: 20 mg Sodium Chloride (Normal Saline 0.9%) 1,000 mls @ 1,000 mls/hr IV BOLUS ONE Stop: 08/29/18 10:44 Last Infusion: 08/29/18 10:56 Dose: 0 mls/hr Infusion: 08/29/18 10:10 Dose: 200 mls/hr Admin: 08/29/18 09:59 Dose: 1,000 mls/hr Sodium Chloride (Normal Saline 0.9%) 1,000 mls @ 1,000 mls/hr IV BOLUS ONE Stop: 08/29/18 12:03 Last Infusion: 08/29/18 13:46 Dose: 0 mls/hr Admin: 08/29/18 12:22 Dose: 1,000 mls/hr Vital Signs - 8 hr 08/29/18 12:18 08/29/18 12:20 08/29/18 12:25 Temperature Pulse Rate 125 H 125 H 105 H Respiratory Rate 22 22 Blood Pressure 155/91 H Blood Pressure [Left Arm] 155/91 H 135/62 Pulse Oximetry 97 08/29/18 12:30 08/29/18 13:20 08/29/18 15:42 Temperature 100.3 F H 97.5 F L Pulse Rate 95 H 119 H 118 H Respiratory Rate 21 18 18 Blood Pressure 150/99 H 126/48 L Blood Pressure [Left Arm] 131/76 Pulse Oximetry 92 90 L 95 08/29/18 16:02 08/29/18 19:00 Temperature Pulse Rate 141 H Respiratory Rate Blood Pressure Blood Pressure [Left Arm] Pulse Oximetry 95 MDM - Weakness Medical Records Attestation: I reviewed the patient's medical records. Lab Data Attestation: I reviewed the patient's lab results. Result diagrams: 08/29/18 08:51 08/29/18 08:51 Lab Results 08/29/18 08/29/18 08/29/18 Range/Units 08:51 08:51 08:51 WBC 8.1 (4.5-11.0) X10^3/uL RBC 4.72 (4.0-5.2) X10^6/uL Hgb 13.7 (12.0-16.0) g/dL Hct 40.2 (36-46) % MCV 85.2 (80-100) fL MCH 28.9 (26-34) PG MCHC 34.0 (30-36) % RDW 15.0 H (11.6-14.8) % Plt Count 223 (150-400) X10^3/uL Neut % (Auto) 73.1 (50-75) % Lymph % (Auto) 16.6 L (25-40) % [place] % (Auto) 8.7 (3-14) % Eos % (Auto) 1.1 L (2-4) % Baso % (Auto) 0.5 (0-2) % Neut # (Auto) 5900 (8994-0448) /uL Lymph # (Auto) 1300 (1261-2260) /uL [place] # (Auto) 700 (0-900) /uL Eos # (Auto) 100 (0-450) /uL Baso # (Auto) 0 (0-100) /uL PT (10.1-12.7) SECONDS INR (0.9-1.3) Sodium 134 L (137-145) mmol/L Potassium 4.3 (3.4-5.1) mmol/L Chloride 95 L (98-107) mmol/L Carbon Dioxide 28 (22-32) mmol/L BUN 13 (7-17) mg/dL Creatinine 0.90 (0.52-1.04) mg/dL Estimated GFR > 60.0 (>60) mL/min BUN/Creatinine Ratio 14.4 (6-22) Glucose 120 H (80-110) mg/dL Calcium 9.7 (8.4-10.2) mg/dL Total Bilirubin 1.2 (0.2-1.3) mg/dL AST 31 (14-36) IU/L ALT 26 (9-52) IU/L Alkaline Phosphatase 129 H (38-126) U/L Total Creatine Kinase 40 (30-135) U/L CK-MB (CK-2) TNP CK-MB (CK-2) Rel Index TNP Troponin I < 0.012 (0.01-0.034) ng/mL Total Protein 7.7 (6.3-8.2) g/dL Albumin 4.4 (3.5-5.0) g/dL Globulin 3.3 (1.7-4.1) g/dL Albumin/Globulin Ratio 1.3 (1.0-2.8) Urine Color Urine Appearance Urine pH (4.5-8.0) Ur Specific [place] (1.000-1.035) Urine Protein (Negative) Urine Glucose (UA) (Negative) g/dL Urine Ketones (NEGATIVE) Urine Occult Blood (Negative) Urine Nitrate (Negative) Urine Bilirubin (NEGATIVE) Urine Urobilinogen (0.2) E.U./dL Ur Leukocyte Esterase (NEGATIVE) Urine RBC (0-5/HPF) Urine WBC (0-5/HPF) Ur Squamous Epith Cells (0-5/HPF) Amorphous Sediment Urine Bacteria (None) Urine Mucus (Negative) Ur Culture Indicated? 08/29/18 08/29/18 Range/Units 09:55 17:11 WBC (4.5-11.0) X10^3/uL RBC (4.0-5.2) X10^6/uL Hgb (12.0-16.0) g/dL Hct (36-46) % MCV (80-100) fL MCH (26-34) PG MCHC (30-36) % RDW (11.6-14.8) % Plt Count (150-400) X10^3/uL Neut % (Auto) (50-75) % Lymph % (Auto) (25-40) % [place] % (Auto) (3-14) % Eos % (Auto) (2-4) % Baso % (Auto) (0-2) % Neut # (Auto) (5335-5052) /uL Lymph # (Auto) (3172-2331) /uL [place] # (Auto) (0-900) /uL Eos # (Auto) (0-450) /uL Baso # (Auto) (0-100) /uL PT 18.2 H (10.1-12.7) SECONDS INR 1.6 H (0.9-1.3) Sodium (137-145) mmol/L Potassium (3.4-5.1) mmol/L Chloride (98-107) mmol/L Carbon Dioxide (22-32) mmol/L BUN (7-17) mg/dL Creatinine (0.52-1.04) mg/dL Estimated GFR (>60) mL/min BUN/Creatinine Ratio (6-22) Glucose (80-110) mg/dL Calcium (8.4-10.2) mg/dL Total Bilirubin (0.2-1.3) mg/dL AST (14-36) IU/L ALT (9-52) IU/L Alkaline Phosphatase (38-126) U/L Total Creatine Kinase (30-135) U/L CK-MB (CK-2) CK-MB (CK-2) Rel Index Troponin I (0.01-0.034) ng/mL Total Protein (6.3-8.2) g/dL Albumin (3.5-5.0) g/dL Globulin (1.7-4.1) g/dL Albumin/Globulin Ratio (1.0-2.8) Urine Color Yellow Urine Appearance Clear Urine pH 7.0 (4.5-8.0) Ur Specific [place] 1.020 (1.000-1.035) Urine Protein Trace H (Negative) Urine Glucose (UA) Negative (Negative) g/dL Urine Ketones Negative (NEGATIVE) Urine Occult Blood Negative (Negative) Urine Nitrate Negative (Negative) Urine Bilirubin Negative (NEGATIVE) Urine Urobilinogen 2.0 H (0.2) E.U./dL Ur Leukocyte Esterase Negative (NEGATIVE) Urine RBC 0-1/hpf (0-5/HPF) Urine WBC 0-1/hpf (0-5/HPF) Ur Squamous Epith Cells 1-5 /hpf (0-5/HPF) Amorphous Sediment 1+ Urine Bacteria None seen (None) Urine Mucus 1+ H (Negative) Ur Culture Indicated? Cult not indicated Imaging Data Chest x-ray: Radiologist's impression: [address] [address] XRay Report Signed Patient: Tali Burton JMR#: [id number] : 8Acct:[id number] Age/Sex: 82 / FDate of Service: 08/29/18 Loc: ED Accession Number: [id number] Procedure: XR chest 1V Ordering Provider: Madelyn Dias MD PROCEDURE: XR CHEST 1V INDICATIONS: sob, aloc TECHNIQUE: One view of the chest was acquired. COMPARISON: [facility], , XR CHEST 1V, 01/23/2018, 15:12. FINDINGS: Surgical changes and devices: None. Lungs and pleura: Mild pulmonary consolidation is present at the right lung base. There may be minimal consolidation at the left lung base, as well. No large effusion or pneumothorax is evident. There is mild scarring in the lung apices. Mediastinum: Mediastinal contours appear normal. Heart size is normal. Bones and chest wall: No suspicious bony lesions. Overlying soft tissues appear unremarkable. IMPRESSION: Mild bibasilar atelectasis versus scarring. Please correlate clinically to exclude superimposed pneumonia. Dictated by: Lenny Doyle M.D. on 08/29/2018 at 8:26 Approved by: Lenny Doyle M.D. on 08/29/2018 at 8:30 CT scan - head: Radiologist's impression: [address] [address] [address] Scan Report Signed Patient: Tali Burton R#: [id number] : 8Acct:[id number] Age/Sex: 82 / FDate of Service: 08/29/18 Loc: ED Accession Number: [id number] Procedure: CT head/brain wo con Ordering Provider: Madelyn Dias MD PROCEDURE: CT HEAD/BRAIN WO CON INDICATIONS: aloc TECHNIQUE: Noncontrast 4.5 mm thick angled axial sections acquired from the foramen magnum to the vertex, with coronal and sagittal reformats. For radiation dose reduction, the following was used: automated exposure control, adjustment of mA and/or kV according to patient size. COMPARISON: [facility], CT, CT HEAD/BRAIN WO CON, 12/26/2017, 11:30. [facility], CT, CT HEAD/BRAIN WO CON, 12/07/2017, 12:28. FINDINGS: Image quality: Excellent. CSF spaces: Basal cisterns are patent. No extra-axial fluid collections. The ventricles are symmetric in size and shape. Brain: No intracranial bleeds or masses. There is cerebral volume loss for age, with resultant ventricular and sulcal prominence. There are periventricular and deep white matter chronic small vessel ischemic changes. There is intracranial internal carotid artery atherosclerosis. Skull and face: Calvarium and visualized facial bones appear intact, without suspicious lesions. Sinuses: Visualized sinuses and mastoids are clear. IMPRESSION: Moderate microvascular atherosclerotic change in the deep white matter of each hemisphere, without evidence of acute or subacute stroke and with no evidence of mass lesion or ventriculomegaly. Depending on the clinical status followup by MR scanning may be warranted. Dictated by: Willie Weeks M.D. on 08/29/2018 at 9:11 Approved by: Willie Weeks M.D. on 08/29/2018 at 9:12 ECG Data Attestation: I personally reviewed and interpreted this ECG as follows: (See below) Interpretation: Twelve lead EKG performed August 29, 2018 at 8:32 a.m., as follows: Irregular ventricular rhythm with a rate of 127 beats per minute MS interval undetectable QRS duration 80 millisecond QTC interval 358 milliseconds Normal axis Interpretation: Atrial fibrillation with rapid ventricular response and PVCs; moderate diffuse ST depression; abnormal EKG as interpreted by ED MD. Discharge Plan Departure Patient Disposition: Admitted As Inpatient Clinical Impression: Rapid atrial fibrillation, Acute confusion Discharge Date/Time: 08/29/18 12:58 Interventions: ED Discharge Assessment Last Done: 08/29/18 12:58 Admit Date/Time: 08/29/18 12:02 Admit Provider: Mame Ardon
--- NOTE | 2018-08-29 08:52 | DI.CT.S_ITS ---
PROCEDURE: CT HEAD/BRAIN WO CON INDICATIONS: aloc TECHNIQUE: Noncontrast 4.5 mm thick angled axial sections acquired from the foramen magnum to the vertex, with coronal and sagittal reformats. For radiation dose reduction, the following was used: automated exposure control, adjustment of mA and/or kV according to patient size. COMPARISON: [facility], CT, CT HEAD/BRAIN WO CON, 12/26/2017, 11:30. [facility], CT, CT HEAD/BRAIN WO CON, 12/07/2017, 12:28. FINDINGS: Image quality: Excellent. CSF spaces: Basal cisterns are patent. No extra-axial fluid collections. The ventricles are symmetric in size and shape. Brain: No intracranial bleeds or masses. There is cerebral volume loss for age, with resultant ventricular and sulcal prominence. There are periventricular and deep white matter chronic small vessel ischemic changes. There is intracranial internal carotid artery atherosclerosis. Skull and face: Calvarium and visualized facial bones appear intact, without suspicious lesions. Sinuses: Visualized sinuses and mastoids are clear. IMPRESSION: Moderate microvascular atherosclerotic change in the deep white matter of each hemisphere, without evidence of acute or subacute stroke and with no evidence of mass lesion or ventriculomegaly. Depending on the clinical status followup by MR scanning may be warranted. Dictated by: Willie Weeks M.D. on 08/29/2018 at 9:11 Approved by: Willie Weeks M.D. on 08/29/2018 at 9:12
[2018-08-29 09:01] LABS: Add Manual Diff / Slide Review NO; Basophils Absolute Auto 0 /uL (0-100); Basophils Percent Auto 0.5 % (0-2); Eosinophils Absolute Auto 100 /uL (0-450); Eosinophils Percent Auto 1.1 % (2-4); Hematocrit 40.2 % (36-46); Hemoglobin 13.7 g/dL (12.0-16.0); Lymphocytes Absolute Auto 1300 /uL (1100-4500); Lymphocytes Percent Auto 16.6 % (25-40); Mean Corpuscular Hemoglobin 28.9 PG (26-34); Mean Corpuscular Volume 85.2 fL (80-100); Monocytes Absolute Auto 700 /uL (0-900); Monocytes Percent Auto 8.7 % (3-14); Neutrophils Absolute Auto 5900 /uL (1500-7000); Neutrophils Percent Auto 73.1 % (50-75); Platelet Count 223 X10^3/uL (150-400); Red Blood Cell Count 4.72 X10^6/uL (4.0-5.2); White Blood Cell Count 8.1 X10^3/uL (4.5-11.0)
[2018-08-29 09:09] LABS: Alanine Aminotransferase 26 IU/L (9-52); Albumin 4.4 g/dL (3.5-5.0); Albumin Globulin Ratio 1.3 (1.0-2.8); Alkaline Phosphatase 129 U/L (38-126); Aspartate Aminotransferase 31 IU/L (14-36); BUN Creatinine Ratio 14.4 (6-22); Bilirubin Total 1.2 mg/dL (0.2-1.3); Blood Urea Nitrogen 13 mg/dL (7-17); Calcium 9.7 mg/dL (8.4-10.2); Carbon Dioxide 28 mmol/L (22-32); Chloride 95 mmol/L (98-107); Estimated Glomerular Filt Rate > 60.0 mL/min (>60); Globulin 3.3 g/dL (1.7-4.1); Glucose 120 mg/dL (80-110); HEMOLYSIS 18 (0-50); Potassium 4.3 mmol/L (3.4-5.1); Sodium 134 mmol/L (137-145); Total Protein 7.7 g/dL (6.3-8.2)
[2018-08-29 09:44] LABS: Creatine Kinase 40 U/L (30-135)
[2018-08-29] MEDS: dilTIAZem 5 MG/ML SDV 20 MG IV ×2 (09:44→12:18)
[2018-08-29 09:56] LABS: Troponin I < 0.012 ng/mL (0.01-0.034)
[2018-08-29] MEDS: SODIUM CHLORIDE 0.9% 1,000 ML 1000 ML IV ×2 (09:59→12:22)
[2018-08-29 10:04] LABS: Bacteria Urine None Seen
[2018-08-29 10:06] LABS: Appearance Urine UA CLEAR; Bilirubin Urine UA NEGATIVE (NEGATIVE); Color Urine UA YELLOW; Glucose Urine UA NEGATIVE (Negative); Ketones Urine UA NEGATIVE (NEGATIVE); Leukocyte Esterase Urine UA NEGATIVE (NEGATIVE); Nitrite Urine UA NEGATIVE (Negative); Occult Blood Urine UA NEGATIVE (Negative); Protein Urine UA TRACE (Negative)
[2018-08-29 10:14] LABS: Amorphous Sediment Urine 1+; Culture Indicated Urine Cult Not Indicated; Mucus Urine 1+ (Negative); RBC Urine 0-1/HPF (0-5/HPF); Squamous Epithelial Cell Urine 1-5 /HPF (0-5/HPF); WBC Urine 0-1/HPF (0-5/HPF)
--- NOTE | 2018-08-29 11:11 | PC.NURSE ---
pt spo2 down to 85%, in to check pt. pt bp cuff and pulse ox were on her lap. pt iv with cath intact was also on her lap. i asked why did she remove the IV, pt showed me a piece of tape with gauze and said i thought i was taking one of these off. site has no bleeding noted.
--- NOTE | 2018-08-29 11:15 | PC.NURSE ---
pt Spo2 was alarming at 85%, in to check pt. pt bp cuff and pulse ox were on her lap, pt iv with cath intact was also on her lap. I asked pt why she removed her iv, she showed me a gauze and tape she'd taken off and states i thought i was taking one of these off, no bleeding noted at site. reported to dr craig.
--- NOTE | 2018-08-29 11:40 | PC.NURSE ---
IV therapy at bedside attempting new PIV. Medications to be administered when IV re-established.
--- NOTE | 2018-08-29 11:54 | PC.NURSE ---
spoke with pt's son denise. pt is going to be admitted, denise will bring advance directive paperwork this afternoon when he come to visit patient.
--- NOTE | 2018-08-29 12:56 | PC.NURSE ---
during cardizem delivery pt tolerated well. vitials changed to every 5min for 3 rounds. VSS
--- NOTE | 2018-08-29 13:23 | PC.NURSE ---
1325-PT is totally alert and oriented x3 but has significant expressive aphagia. She knows the questions being ask to her but is having a hard time finding the words to answer each question asked. Pt is pleasant, she has a midline to her l.mid arm that is infusing ivf at this time. Pt had a mild bout of nausea when getting up to her room but this has subsided. into see patient and she is resting comfortably at this time. Pt is a 1 pa to the bathroom. Son will be here around 1500 with pts med list and advance directives.
--- NOTE | 2018-08-29 14:19 | PM.HP.1 ---
History of Present Illness Date Patient Seen: 08/29/18 Chief complaint: Not being normal narthargic Narrative: The patient is an 82-year-old female with a history of atrial fibrillation on Coumadin, hyperlipidemia, hypertension chronic pain, and pulmonary fibrosis who was brought in for complaints of confusion. The patient has expressive aphasia and is unable to provide any further history. According to the reports from the ED the patient has been not feeling well for the past few days. She was noted to be confused. She has known atrial fibrillation. She was found to have a rapid ventricular response rate in the emergency department. The patient is awake and alert but unable to provide any further history. She has expressive aphasia. She has difficulty getting words out. At time she can answer appropriate. Patient was evaluated in the emergency room. Her white count was normal. Her electrolytes were normal. Head CT initially obtained was normal as well. She is admitted to the hospital for further evaluation. Patient History Medical History Impaired fasting glucose (Acute) Stroke (Acute) Hyperlipidemia (Acute) Hypertension (Acute) Chronic pain (Acute) Pulmonary fibrosis (Acute) Surgical History No pertinent past surgical history (Acute) Social History details: two years ago number of children: 2 lives independently: Yes caregiver/support person: Yes housing: apartment other: Denies alcohol drinking or cigarette smoking. Her son of overdose 1 w Smoking Status: Former smoker Family & Social History Social History: lives independently Yes caregiver/support person Yes other Denies alcohol drinking or cigarette smoking. Her son of overdose 1 w Safety & Behavioral: Feels Safe in Current Yes Environment Been Physically Hurt or No Threatened By a Person Tobacco & Substance use: Smoking Status Former smoker alcohol intake frequency holiday/special occasion Substance Use Type does not use Meds Home Medications Medication Instructions Recorded Confirmed Type atorvastatin 80 mg PO DAILY 08/07/17 01/23/18 History gabapentin 300 mg PO BID 08/07/17 01/23/18 History omeprazole magnesium [Prilosec OTC] 20 mg PO DAILY 08/07/17 01/23/18 History zolpidem 5 mg PO BEDTIME PRN 08/07/17 01/23/18 History gabapentin 600 mg PO BEDTIME 09/05/17 01/23/18 History hydrocodone-acetaminophen 1 tab PO TID PRN 09/05/17 01/23/18 History albuterol sulfate [ProAir HFA] 2 puff INHALATION Q4-6H PRN 12/07/17 01/23/18 History diltiazem HCl [DILT-XR] 180 mg PO DAILY 12/07/17 01/23/18 History furosemide 20 mg PO DAILY 12/07/17 01/23/18 History levalbuterol tartrate [Xopenex HFA] 1 puff INHALATION Q4-6H PRN 12/07/17 01/23/18 History lubiprostone [Amitiza] 24 mcg PO DAILY 12/07/17 01/23/18 History nystatin 1 applic TOPICAL TID 12/07/17 01/23/18 History warfarin 5 mg PO SUTUWEFRSA 12/07/17 01/23/18 History aspirin 81 mg PO DAILY 12/26/17 01/23/18 History fluticasone propionate [Flonase 1 spray INTRANASAL DAILY 12/26/17 01/23/18 History Allergy Relief] metoprolol succinate 50 mg PO BID 12/26/17 01/23/18 History warfarin 7.5 mg PO MOTH 12/26/17 01/23/18 History doxepin 100 mg PO BEDTIME 01/23/18 01/23/18 History escitalopram oxalate 10 mg PO DAILY 01/23/18 01/23/18 History Allergies Allergy/AdvReac Type Severity Reaction Status Date / Time Sulfa (Sulfonamide Allergy Intermediate Rash Verified 08/29/18 09:04 Antibiotics) Review of Systems Review of Systems unobtainable due to mental status Exam Vital Signs (past 8 hours): - 08/29/18 08:33 08/29/18 09:05 08/29/18 09:44 Temperature 98.8 F 98.8 F Pulse Rate 120 H 120 H 127 H Respiratory Rate 22 22 Blood Pressure 159/102 H 159/102 H 123/96 H Blood Pressure [Left Arm] Pulse Oximetry 96 96 08/29/18 10:09 08/29/18 10:49 08/29/18 11:00 Temperature Pulse Rate 104 H 104 H 115 H Respiratory Rate 19 19 28 H Blood Pressure Blood Pressure [Left Arm] 147/94 H 106/71 156/86 H Pulse Oximetry 94 97 96 08/29/18 11:30 08/29/18 12:00 08/29/18 12:18 Temperature Pulse Rate 109 H 111 H 125 H Respiratory Rate 20 24 Blood Pressure 155/91 H Blood Pressure [Left Arm] 154/111 H Pulse Oximetry 93 95 08/29/18 12:20 08/29/18 12:25 08/29/18 12:30 Temperature Pulse Rate 125 H 105 H 95 H Respiratory Rate 22 22 21 Blood Pressure Blood Pressure [Left Arm] 155/91 H 135/62 131/76 Pulse Oximetry 97 92 08/29/18 13:20 Temperature 100.3 F H Pulse Rate 119 H Respiratory Rate 18 Blood Pressure 150/99 H Blood Pressure [Left Arm] Pulse Oximetry 90 L Oxygen Delivery Method Room Air Oxygen Flow Rate 0 Narrative Exam Narrative: Pleasant elderly female awake and alert but with expressive aphasia HEENT: Normocephalic atraumatic, extraocular muscles are intact, oropharynx is clear, neck is supple Lungs: Decreased breath sounds, crackles at the right base Cardiac exam tachycardic, irregularly irregular, 2/6 systolic ejection murmur Abdomen: Obese, soft nontender nondistended, no hepatosplenomegaly no Extremities: No edema Neuro exam: Cranial nerves 2-12 are intact, speech abnormal with expressive aphasia, no facial droop, tongue is midline Strength: Symmetric and equal, sensation intact reflexes are brisk and equal Mental status: She is awake and alert, she does attempt to answer questions appropriately, major issues are expressive aphasia Objective Labs Result Diagrams: 08/29/18 08:51 08/29/18 08:51 Labs: Laboratory Results - last 24 hr 08/29/18 08/29/18 08/29/18 08:51 08:51 08:51 WBC 8.1 RBC 4.72 Hgb 13.7 Hct 40.2 MCV 85.2 MCH 28.9 MCHC 34.0 RDW 15.0 H Plt Count 223 Neut % (Auto) 73.1 Lymph % (Auto) 16.6 L [place] % (Auto) 8.7 Eos % (Auto) 1.1 L Baso % (Auto) 0.5 Neut # (Auto) 5900 Lymph # (Auto) 1300 [place] # (Auto) 700 Eos # (Auto) 100 Baso # (Auto) 0 Sodium 134 L Potassium 4.3 Chloride 95 L Carbon Dioxide 28 BUN 13 Creatinine 0.90 Estimated GFR > 60.0 BUN/Creatinine Ratio 14.4 Glucose 120 H Calcium 9.7 Total Bilirubin 1.2 AST 31 ALT 26 Alkaline Phosphatase 129 H Total Creatine Kinase 40 CK-MB (CK-2) TNP CK-MB (CK-2) Rel Index TNP Troponin I < 0.012 Total Protein 7.7 Albumin 4.4 Globulin 3.3 Albumin/Globulin Ratio 1.3 Urine Color Urine Appearance Urine pH Ur Specific [place] Urine Protein Urine Glucose (UA) Urine Ketones Urine Occult Blood Urine Nitrate Urine Bilirubin Urine Urobilinogen Ur Leukocyte Esterase Urine RBC Urine WBC Ur Squamous Epith Cells Amorphous Sediment Urine Bacteria Urine Mucus Ur Culture Indicated? 08/29/18 09:55 WBC RBC Hgb Hct MCV MCH MCHC RDW Plt Count Neut % (Auto) Lymph % (Auto) [place] % (Auto) Eos % (Auto) Baso % (Auto) Neut # (Auto) Lymph # (Auto) [place] # (Auto) Eos # (Auto) Baso # (Auto) Sodium Potassium Chloride Carbon Dioxide BUN Creatinine Estimated GFR BUN/Creatinine Ratio Glucose Calcium Total Bilirubin AST ALT Alkaline Phosphatase Total Creatine Kinase CK-MB (CK-2) CK-MB (CK-2) Rel Index Troponin I Total Protein Albumin Globulin Albumin/Globulin Ratio Urine Color Yellow Urine Appearance Clear Urine pH 7.0 Ur Specific [place] 1.020 Urine Protein Trace H Urine Glucose (UA) Negative Urine Ketones Negative Urine Occult Blood Negative Urine Nitrate Negative Urine Bilirubin Negative Urine Urobilinogen 2.0 H Ur Leukocyte Esterase Negative Urine RBC 0-1/hpf Urine WBC 0-1/hpf Ur Squamous Epith Cells 1-5 /hpf Amorphous Sediment 1+ Urine Bacteria None seen Urine Mucus 1+ H Ur Culture Indicated? Cult not indicated Assessment & Plan (1) Rapid atrial fibrillation: Problem details: Paroxysmal atrial fibrillation, present on admission. Patient presents with a rapid ventricular response rate. Will continue her usual home medication. Will add additional rate control medications if needed Current visit: Yes Status: Acute (2) Pulmonary fibrosis: Problem details: Pulmonary fibrosis, present on admission, chronic Current visit: No Status: Acute (3) Hyperlipidemia: Problem details: Hyperlipidemia, chronic continue her usual statin Current visit: No Status: Acute (4) Stroke: Problem details: History of stroke old, concern regarding new stroke given her expressive aphasia. Patient has known atrial fibrillation. She is also anticoagulated therapeutically on Coumadin. Will obtain an MRI of the brain. Will continue aspirin and Coumadin at this time Current visit: No Status: Acute (5) Hypertension: Problem details: Hypertension, chronic will continue usual home medication Current visit: No Status: Acute (6) Acute confusion: Problem details: Acute for confusion, unclear whether the patient is confused or not. She appears to be awake alert, major issues are expressive aphasia. Will await MRI study. Current visit: Yes Status: Acute
--- NOTE | 2018-08-29 16:00 | PT.IIE ---
Current Diagnoses Hyperlipidemia, unspecified (08/29/18) Essential (primary) hypertension (08/29/18) Unspecified atrial fibrillation (08/29/18) Cerebral infarction, unspecified (08/29/18) Pulmonary fibrosis, unspecified (08/29/18) Disorientation, unspecified (08/29/18) Surgical History (Last Reviewed 08/29/18 @ 14:21 by Mame Ardon MD) No pertinent past surgical history (Acute) Medical History (Last Reviewed 08/29/18 @ 14:21 by Mame Ardon MD) Impaired fasting glucose (Acute) Stroke (Acute) Hyperlipidemia (Acute) Hypertension (Acute) Chronic pain (Acute) Pulmonary fibrosis (Acute) Physical Therapy Inpatient Evaluation/Re-Eval M1 PT/OT-IP Prior Functional Status Start: 08/29/18 17:07 Freq: NEEDED Status: Active Protocol: Document 08/29/18 16:00 AB (Rec: 08/29/18 17:27 [id number]) Medical Review Prior Functional Status Medical History Reviewed Yes Communication pt has aphasia Mobility and Gait per son: pt was able to manage at [facility] with just 2-3 hours of assistance from a caregiver. able to manage by herself when caregiver is not around. uses a 4WW for ambulation. Activities of Daily Living and IADL's caregiver comes in 2-3 hours a day and assists pt with showers, house chores, dressing (if needed), toileting (if needed) and medications Social History Number of Floors (Floors) One Floor Number of Stairs To Enter/Railing? pt lives at [facility] Home Environment Standard Height Toilet Walk in Shower Home Equipment Four Wheel Walker Shower Seat with Backrest Hand Held Shower Grab Bars Near Toilet Grab Bars In Shower Employment Status Retired M2 PT-IP Current Condition Start: 08/29/18 17:07 Freq: NEEDED Status: Active Protocol: Document 08/29/18 16:00 AB (Rec: 08/29/18 17:27 [id number]) Physical Therapy Current Condition Current Condition Evaluation Date 08/29/18 Treatment Diagnosis a-fib; generalized weakness; difficulty in walking Onset Date 08/29/18 Precautions Other Precautions HR M3 PT-IP Subjective Start: 08/29/18 17:07 Freq: NEEDED Status: Active Protocol: Document 08/29/18 16:00 AB (Rec: 08/29/18 17:27 [id number]) Subjective Physical Therapy Visit Type Type Initial Evaluation Visit Start Time 16:00 Visit Stop Time 16:39 Total Visit Minutes 39 Number of PHOTO CHECKER Visits 0 Physical Therapy Visit Comments Patient Comments pt has difficulty following directions and verbalizing needs Therapy Pain Assessment Pain Present Pain Present Denied Pain M4 PT-IP Mobility and Gait Start: 08/29/18 17:07 Freq: NEEDED Status: Active Protocol: Document 08/29/18 16:00 AB (Rec: 08/29/18 17:27 [id number]) PT-Bed Mobility Assessment Supine to Sit Supine to Sit Maximum Assistance 1 Person Assistance Sit to Supine Sit to Supine Maximum Assistance 1 Person Assistance 2 Person Assistance Scooting Scooting to Edge of Bed Maximum Assistance Scooting Up and Down in Bed Maximum Assistance Dependent PT-Transfer Assessment Comments Mobility Comments MT resting supine: 123 to 134 bpm. informed nurse but ask to try to get pt out of bed for dinner due to pt's dysphagia. pt completed supine to sit max A and max cues. able to sit on EOB CGA. (+) SOB but pt unable to stated what she feels when asked. BP checked 136/69. pt tolerated ~ 4 min of sitting on EOB. HR increases to 134 to 138. Pt was asked several times on what she feels but pt attempted to answer but unable to state. rephrased questions over again and when asked if she just wants to lay back down in bed, pt agreed. pt required max A x 1-2 for sit to supine. required max Ax 2 to total A x 2 for repostioning in bed. Nurse present. positioned pt in bed. call light and table placed within reach. Gait Assessment Comments Gait Comments unable at thist all PT-Balance Assessment Sitting Balance and Reactions Static Sitting Balance Ability Good Dynamic Sitting Balance Ability Fair M5 PT-IP Objective Assessments Start: 08/29/18 17:07 Freq: NEEDED Status: Active Protocol: Document 08/29/18 16:00 AB (Rec: 08/29/18 17:27 [id number]) Orientation Orientation/Cognition Language Function Ability Expressive Aphasia Receptive Aphasia Word Finding Difficulties Comments unable to verbalize needs and follow directions Gross Range of Motion Lower Extremity ROM Assessment Bilaterally Impaired Impairments increase knee guarding during PROM; able to bend knees with difficulty Strength Lower Extremity Strength Assessment Bilaterally Impaired Hip 3-/5 Knee 3-/5 Muscle Tone Muscle Tone WNL Yes M6 PT-IP Treatment Start: 08/29/18 17:07 Freq: NEEDED Status: Active Protocol: Document 08/29/18 16:00 AB (Rec: 08/29/18 17:27 AB [id number]) Physical Therapy Treatment Education Education Provided Safety M7 PT-IP Assessment and Plan Start: 08/29/18 17:07 Freq: NEEDED Status: Active Protocol: Document 08/29/18 16:00 AB (Rec: 08/29/18 17:27 AB [id number]) PT Summary Assessment and Plan Potential Rehabilitation Potential Fair Status of Condition at Evaluation Evolving Summary Impairments Strength Balance Cognition Bed Mobility Transfers Gait Activity Tolerance Assessment Summary pt unable to tolerate much activity today with increase MT. pt also has (+) SOB during mobility. Goals Bed Mobility Goal Contact Guard Assistance Transfer Goal Contact Guard Assistance Front Wheeled Walker Gait Goal Contact Guard Assistance Front Wheel Walker Gait Distance 100 Days to Meet Goals 10 Frequency of Treatment Frequency Of Treatment Once a Day Treatment Plan Physical Therapy Treatment Plan Bed Mobility Training Transfer Training Gait Training Therapeutic Exercise Balance Retraining Discharge Planning Hot or Cold Pack Neuromuscular Re-ed Coordination Retraining Manual Therapy Other Recommendations and Next Treatment transfers Focus Recommendations To Nursing Amount of Assist Needed PT/OT Assist Only Discharge Recommendations PT Discharge Recommendations SNF Rehab Equipment Needed for Home Before FWW if not safe with 4WW and Discharge if pt goes home
[2018-08-29] MEDS: DEXTROSE 5%-0.45% NS 1,000 ML 100 ML IV (16:35)
--- NOTE | 2018-08-29 17:13 | ST.IPIE ---
Care Team Visit Care Team Role Provider Type Carissa Chen MD Primary Care Provider Physician Specialty: Internal Medicine Address: [address] [place] [address] Email: Madelyn Dias MD Emergency Provider Physician Specialty: Emergency Medicine Address: [address] [place] [address] Email: Mame Ardon MD Admit Provider Physician Attending Provider Specialty: Internal Medicine Address: [address] [place] [address] Email: [email or web address] Current Diagnoses Hyperlipidemia, unspecified (08/29/18) Essential (primary) hypertension (08/29/18) Unspecified atrial fibrillation (08/29/18) Cerebral infarction, unspecified (08/29/18) Pulmonary fibrosis, unspecified (08/29/18) Disorientation, unspecified (08/29/18) Past Medical History (Last Reviewed 08/29/18 @ 14:21 by Mame Ardon MD) Impaired fasting glucose (Acute Medical) Stroke (Acute Medical) History of stroke old, concern regarding new stroke given her expressive aphasia. Patient has known atrial fibrillation. She is also anticoagulated therapeutically on Coumadin. Will obtain an MRI of the brain. 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 Ardon Setting Assessment Location Acute Care Next Note Type Next Note Type Treatment Note Patient Information Identification Type Name ID Wristband History Medical History (Reviewed 08/12 @ 14:21 by Mame Ardon MD) Impaired fasting glucose ( Acute) Stroke (Acute) Hyperlipidemia (Acute) Hypertension (Acute) Chronic pain (Acute) Pulmonary fibrosis (Acute) The patient is an 82-year-old female with a history of atrial fibrillation on Coumadin, hyperlipidemia, hypertension chronic pain, and pulmonary fibrosis who was brought in for complaints of confusion. The patient has expressive aphasia and is unable to provide any further history. According to the reports from the ED the patient has been not feeling well for the past few days. She was noted to be confused. The patient is awake and alert but unable to provide any further history. She has expressive aphasia. She has difficulty getting words out. At time she can answer appropriately. Subjective Observations Pt was up in her bed awake. Pt was fidgety, picking at her bed sheets and her clothes. Could not keep pulse O2 on her finger as she would remove it . Seems anxious. Evaluation Liquids Trialed Thin Eitzen Solids Trialed Puree Dysphagia Mechanical Dysphagia Advanced Regular Administration Type Tea Spoon Cup Single Sip Controlled Cup Sip Cup Consecutive Sips Straw Self-Feeding Dependent Feeding Oral Impairment WFL Oral Strategies Upright at 90 degrees Controlled Bite/Sip Size Oral Phase Comments OM examination indicated structures within normal limits for speed/ diadochokinesis, speed, accuracy with simple tasks. Pt was unable to stick out her tongue, wiggle her tongue back and forth. She was unable to follow directions with OM tasks requiring more complex moved (put your tongue in you cheek, puff your cheeks ,etc.). Pt appeared to be oral apraxia with oral groping, stops and starts, etc . With PO trials, the pt had difficulty with controlling and chewing an ice cube. Additionally, with a cookie, she handed it back to me saying that's enough. She was able to tolerate diced peaches; however it is difficult to say if she chewed the peaches or simply swallowed them. Pt has upper and lower dentures which fit with adhesive in place. Her refusal of the cookie and difficulty with the ice cube may be related to her dentures fitting well or they simply were too difficult for he to tolerate. Pharyngeal Impairment Mildly Impaired Pharyngeal Strategies Sitting Upright (90 deg) Small Bites and Sips Alternate Liquids/Solids Pharyngeal Phase Comments Pt's swallow initiation for dry swallow was delayed with tongue rocking felt upon palpation. Her cough was weak . With PO trials with liquids , she demonstrated mildly reduced hyolaryngeal elevation /excursion forward. Her swallow was audible with a delayed throat-clearing. This may indicate poor laryngeal vestibule seal and reduced epiglottic inversion and/or pooling within the pharyngeal cavities. Findings Dysphagia Type oropharyngeal dysphagia Rehabilitation Potential Good Diet Recommendations Liquids Order Eitzen Diet Order Dysphagia Advanced Medication Recommendations As Tolerated Additional Dietary Needs 1:1 Supervision Aspiration Precautions Recommended Precautions Upright at 90 Degrees Frequent Rest Periods Small Bites/Sips Treatment Plan Placement Recommendations after Jail Facility Discharge Appropriate for Therapy Yes Therapy Recommendations Dysphagia therapy Dysphagia Goals Th pt will safely tolerate least-restrictive diet without s/sx aspiration in order to meet nutrition and hydration needs. Dysphagia education and safe swallow strategies will be provided for pt and her family in order to reduce aspiration risk. Diet/liquid advancement as indicated without s/sx aspiration. 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 Start: 08/29/18 16:13 Freq: Status: Active Protocol: Document 08/29/18 16:15 LNK (Rec: 08/29/18 17:10 [id number]) Language Evaluation Session Time Visit Start Time 15:50 Visit Stop Time 16:10 Total Visit Minutes 20 Language Evaluation Assessment Type Informal observation/measures Past Medical History Patient History Medical History (Reviewed 08/12 @ 14:21 by Mame Ardon MD) Impaired fasting glucose ( Acute) Stroke (Acute) Hyperlipidemia (Acute) Hypertension (Acute) Chronic pain (Acute) Pulmonary fibrosis (Acute) The patient is an 82-year-old female with a history of atrial fibrillation on Coumadin, hyperlipidemia, hypertension chronic pain, and pulmonary fibrosis who was brought in for complaints of confusion. The patient has expressive aphasia and is unable to provide any further history. According to the reports from the ED the patient has been not feeling well for the past few days. She was noted to be confused. The patient is awake and alert but unable to provide any further history. She has expressive aphasia. She has difficulty getting words out. At time she can answer appropriately. - Informal Assessment Receptive Language Normal No Expressive Language Normal No Articulation Normal Yes Cognition Normal No Assessment Findings Pt appeared to be agitated, picking at clothing. her expressive language demonstrated significant aphasia and verbal apraxia. She tries to speak and can say some phrases, especially automatic speech (Okay, her name/ and children's names, yes/no, hello/bye, etc). She has difficulty with following directions. She demonstrated inconsistent yes no answers when asked specific questions (Are you in [place]? Answer: Yes. are you in [place]? Answer: Yes, Is this place a hospital? Answer: No, Are you [facility]? Answer: yes. She appeared to be confused and easily distracted. She was given a communication aid with pictures of common needs with words. She could point to a picture of a toilet and a picture of a nurse when asked and given time to respond. Recommendations Speech/Language therapy for - Receptive Language Yes/No Questions Comments Inconsistent Following Directions - Verbal Comments Inconsistent Auditory Comprehension Comments Unknown appears to have receptive aphasia as well as expressive aphasia - Expressive Language Automatic Speech Comments inconsistent Object Naming Skill Level Severely Impaired Oral Expression Skill Level Severely Impaired - Treatment Goals Short Term Goals Pt will use communication aide as needed to make basic needs known to staff. Pt will answer yes/no questions ay 60-70% accuracy for ADL needs. Pt will be able to follow single step directives with gesture cues to meet ADL needs with staff.
[2018-08-29 17:27] LABS: INR 1.6 (0.9-1.3); Prothrombin Time 18.2 SECONDS (10.1-12.7)
[2018-08-29] MEDS: NYSTATIN CREAM 30 GM 1 APPLIC TOP ×2 (17:51→21:39)
[2018-08-29] MEDS: WARFARIN 5 MG TABLET PO (17:51)
[2018-08-29] MEDS: METOPROLOL TARTRATE 5 MG/5 ML INJ IV ×3 (19:04→23:45)
[2018-08-29] MEDS: METOPROLOL ER 50 MG TABLET PO (20:06)
[2018-08-29] MEDS: GABAPENTIN 600 MG TABLET PO (20:06)
[2018-08-29] MEDS: DOXEPIN 25 MG CAPSULE 100 MG PO (20:07)
--- NOTE | 2018-08-29 20:16 | PC.NURSE ---
patient is alert to self, is able to follow some commands but is limited. Patient req. meds crushed in apple sauce and many ques for swallowing. Patient states she understands but needs much reinforcement. Patient on mult. attempts tried to spit out pills. Patient is calm and cooperative w/ staff but is often noted to be picking at gown, blankets, IV and freq. removes Pulse ox. 75ml of emesis post Warfrin admin PO. IV Metoprolol was not greatly effective for reducing HR. PO Metoprolol was given 1 hour earlier in hopes to resolve RVR. Discussed this with ICU nursing staff and all nurses were agreeable.
[2018-08-30] VITALS (15 sets, daily range): BP systolic 103–140; BP diastolic 52–100; PULSE 63–145; RESP 16–24; TEMP 36–37.5; O2SAT 93–97
[2018-08-30] MEDS: METOPROLOL TARTRATE 5 MG/5 ML INJ IV ×4 (01:44→08:07)
[2018-08-30] MEDS: DEXTROSE 5%-0.45% NS 1,000 ML 100 ML IV (01:50)
--- NOTE | 2018-08-30 02:15 | PC.NURSE ---
Addendum entered by Oma Gandhi R.N. 08/30/18 06:11: HR continues elevated at 120-130's; medicated with IV Metoprolol as ordered. Incontinent of urine; placed on bedpan as not wanting to get her up due to elevated HR but did not void. Addendum entered by Oma Gandhi R.N. 08/30/18 04:16: HR continues to be afib RVR with rate sustaining at 120-130 range and intermittently as high as 150's. Dr Kapoor informed of continued RVR despite multiple doses of IV Metoprolol and receiving Metroprolol ER at 1999 last evening. New order for Metoprolol IR po now and to give IV Metoprolol as well. Medicated as ordered. Original Note: Patient awake at shift change but with expressive aphasia. HR in 130's so was given IV Metoprolol with HR continuing to range 120-130's. Unable to complete NIH due to expressive aphasia. When asked if she is in a care home, states yes. When asked if she is in [place], she states yes. Hand grasps are weak but equal. Bilateral arm/leg drift. Does not participate in other pieces of NIH scoring. Breath sounds with scattered expiratory wheezing with auscultation. Oxygen at 3L/min with sat of 96%. HR irregular and was afib RVR on most recent telemetry reading. BT hypoactive. Has not yet voided this shift. Noted bruising on bilateral UE. Perirectal area is reddened but without breakdown. Not moving herself, so is being repositioned q2h. When asked if she is in pain, states no. Fall risk score is high as patient unable to participate so bed alarm is activated at RN discretion.
[2018-08-30] MEDS: METOPROLOL IR 25 MG TABLET PO (04:11)
[2018-08-30 06:55] LABS: Add Manual Diff / Slide Review NO; Basophils Absolute Auto 0 /uL (0-100); Basophils Percent Auto 0.3 % (0-2); Eosinophils Absolute Auto 0 /uL (0-450); Eosinophils Percent Auto 0.1 % (2-4); Hematocrit 40.7 % (36-46); Hemoglobin 13.7 g/dL (12.0-16.0); Lymphocytes Absolute Auto 1500 /uL (1100-4500); Lymphocytes Percent Auto 11.6 % (25-40); Mean Corpuscular HGB Conc 33.7 % (30-36); Mean Corpuscular Hemoglobin 28.7 PG (26-34); Mean Corpuscular Volume 85.1 fL (80-100); Monocytes Absolute Auto 1200 /uL (0-900); Monocytes Percent Auto 9.2 % (3-14); Neutrophils Absolute Auto 10500 /uL (1500-7000); Neutrophils Percent Auto 78.8 % (50-75); Platelet Count 207 X10^3/uL (150-400); Red Blood Cell Count 4.78 X10^6/uL (4.0-5.2); Red Cell Distribution Width 14.9 % (11.6-14.8); White Blood Cell Count 13.3 X10^3/uL (4.5-11.0)
[2018-08-30 07:07] LABS: BUN Creatinine Ratio 17.5 (6-22); Blood Urea Nitrogen 14 mg/dL (7-17); Calcium 9.1 mg/dL (8.4-10.2); Carbon Dioxide 25 mmol/L (22-32); Chloride 95 mmol/L (98-107); Estimated Glomerular Filt Rate > 60.0 mL/min (>60); Glucose 143 mg/dL (80-110); HEMOLYSIS < 15 (0-50); Potassium 3.9 mmol/L (3.4-5.1); Sodium 129 mmol/L (137-145)
[2018-08-30] MEDS: dilTIAZem 30 MG TABLET 60 MG PO ×3 (08:05→20:38)
--- NOTE | 2018-08-30 09:31 | PC.NURSE ---
RN notified of High Pulse and High BP
[2018-08-30] MEDS: METOPROLOL ER 50 MG TABLET PO (10:09)
[2018-08-30] MEDS: ATORVASTATIN 20 MG TABLET 80 MG PO (10:09)
[2018-08-30] MEDS: ASPIRIN EC 81 MG TABLET PO (10:10)
[2018-08-30] MEDS: FUROSEMIDE 20 MG TABLET PO (10:11)
[2018-08-30] MEDS: ESCITALOPRAM 10 MG TABLET PO (10:11)
[2018-08-30] MEDS: GABAPENTIN 300 MG CAPSULE PO (10:11)
[2018-08-30] MEDS: FLUTICASONE 120 SPRAY/16 GM SPRAY.SUSP NASAL (10:11)
[2018-08-30] MEDS: PANTOPRAZOLE 20 MG TABLET PO (10:12)
--- NOTE | 2018-08-30 11:10 | PT.IPTN ---
Current Diagnoses Hyperlipidemia, unspecified (08/29/18) Essential (primary) hypertension (08/29/18) Unspecified atrial fibrillation (08/29/18) Cerebral infarction, unspecified (08/29/18) Pulmonary fibrosis, unspecified (08/29/18) Disorientation, unspecified (08/29/18) Physical Therapy Treatment Note M2 PT-IP Current Condition Start: 08/29/18 17:07 Freq: NEEDED Status: Active Protocol: Document 08/29/18 16:00 AB (Rec: 08/29/18 17:27 AB [id number]) Physical Therapy Current Condition Current Condition Evaluation Date 08/29/18 Treatment Diagnosis a-fib; generalized weakness; difficulty in walking Onset Date 08/29/18 Precautions Other Precautions HR M3 PT-IP Subjective Start: 08/29/18 17:07 Freq: NEEDED Status: Active Protocol: Document 08/30/18 11:10 AB (Rec: 08/30/18 11:53 AB [id number]) Subjective Physical Therapy Visit Type Type Treatment Note Visit Start Time 11:10 Visit Stop Time 11:35 Total Visit Minutes 25 Number of RAILWAYS ASSISTANT Visits 0 Physical Therapy Visit Comments Patient Comments pt agreed to get out of the bed M4 PT-IP Mobility and Gait Start: 08/29/18 17:07 Freq: NEEDED Status: Active Protocol: Document 08/30/18 11:10 AB (Rec: 08/30/18 11:53 AB [id number]) PT-Bed Mobility Assessment Supine to Sit Supine to Sit Maximum Assistance 1 Person Assistance PT-Transfer Assessment Sit to and From Stand Sit to and from Stand Moderate Assistance 2 Person Assistance Use of Upper Extremities Equipment Transfer Assistive Device Gait Belt Front Wheeled Walker Orthotic/Prosthetic Devices or Brace: No Transfers Transfer Destination Chair Transfer Technique Stand Step Pivot Transfer Ability Level of Assist Moderate Assistance 2 Person Assistance Use of Upper Extremities Comments Mobility Comments pt completed sit to stand from EOB mod A x 2 and cues. completed stand step pivot transfer to the chair using FWW mod A x 2 and max cues. pt presents with difficulty following directions and requires max cues to complete all tasks. Gait Assessment Gait Gait Assistance Required: Moderate Assistance 2 Person Assist Distance (Feet) 15 Able to Maintain Weight Bearing Status Yes During Gait Assistive Devices Assistive Device Gait Belt Front Wheeled Walker Orthotic/Prosthetic Devices or Brace: No Gait Deviations General Gait Pattern Antalgic Decreased Stride Length Decreased Feet Clearance Factors Limiting Gait Function Factors Limiting Gait Function Decreased Activity Tolerance Decreased Strength Difficulty Following Directions Limited Range of Motion Pain Poor Balance Poor Safety Awareness Respiratory Distress M5 PT-IP Objective Assessments Start: 08/29/18 17:07 Freq: NEEDED Status: Active Protocol: Document 08/29/18 16:00 AB (Rec: 08/29/18 17:27 AB [id number]) Orientation Orientation/Cognition Language Function Ability Expressive Aphasia Receptive Aphasia Word Finding Difficulties Comments unable to verbalize needs and follow directions Gross Range of Motion Lower Extremity ROM Assessment Bilaterally Impaired Impairments increase knee guarding during PROM; able to bend knees with difficulty Strength Lower Extremity Strength Assessment Bilaterally Impaired Hip 3-/5 Knee 3-/5 Muscle Tone Muscle Tone WNL Yes M6 PT-IP Treatment Start: 08/29/18 17:07 Freq: NEEDED Status: Active Protocol: Document 08/29/18 16:00 AB (Rec: 08/29/18 17:27 AB [id number]) Physical Therapy Treatment Education Education Provided Safety M7 PT-IP Assessment and Plan Start: 08/29/18 17:07 Freq: NEEDED Status: Active Protocol: Document 08/30/18 11:10 AB (Rec: 08/30/18 11:53 AB [id number]) PT Summary Assessment and Plan Potential Rehabilitation Potential Fair Summary Impairments Pain ROM Strength Balance Coordination Sensation Tone Cognition Bed Mobility Transfers Gait Activity Tolerance Progress Towards Goals Slow Progress due to Medical Issues Assessment Summary pt requiring mod A x 2 with transfers and ambulation. seems to be more alert today and able to answer questions more today compared to yesterdays. pt will need 24/7 assist at this time and will require SNF rehab to improve mobility. Goals Bed Mobility Goal Contact Guard Assistance Transfer Goal Contact Guard Assistance Front Wheeled Walker Gait Goal Contact Guard Assistance Front Wheel Walker Gait Distance 100 Days to Meet Goals 10 Frequency of Treatment Frequency Of Treatment Once a Day Treatment Plan Physical Therapy Treatment Plan Bed Mobility Training Transfer Training Gait Training Therapeutic Exercise Balance Retraining Discharge Planning Hot or Cold Pack Neuromuscular Re-ed Coordination Retraining Manual Therapy Other Recommendations and Next Treatment transfers Focus Recommendations To Nursing Amount of Assist Needed 2 Person Assist Discharge Recommendations PT Discharge Recommendations SNF Rehab Equipment Needed for Home Before FWW if not safe with 4WW and Discharge if pt goes home
--- NOTE | 2018-08-30 11:32 | PC.NURSE ---
Pt is Alert but completely confused today. She is unable to answer questions appropriately and has expressive aphagia. Pt' summer law associate are weak and she is unable to lift her lower and upper extremities up. Her Gurpreet Coma scale level is 14. Pts heart rate up to the 130s this morning. Given iv metoprolol and 60mg of diltiazem, which has been effective for heart rate as it is down to the 90s. Pt up with 2p max assist and now sitting up in chair. She has been down and back from her MRI. Pt is resting comfortably. Medications will need to be crushed in apple sauce. She is able to swallow long acting Metoprolol with apple sauce. She does need some queing. Pt tolerated well.
--- NOTE | 2018-08-30 11:36 | OT.IP.EVAL ---
Current Diagnoses Hyperlipidemia, unspecified (08/29/18) Essential (primary) hypertension (08/29/18) Unspecified atrial fibrillation (08/29/18) Cerebral infarction, unspecified (08/29/18) Pulmonary fibrosis, unspecified (08/29/18) Disorientation, unspecified (08/29/18) Past Medical History (Last Reviewed 08/29/18 @ 14:21 by Mame Ardon MD) Impaired fasting glucose (Acute) Stroke (Acute) Hyperlipidemia (Acute) Hypertension (Acute) Chronic pain (Acute) Pulmonary fibrosis (Acute) Surgical History (Last Reviewed 08/29/18 @ 14:21 by Mame Ardon MD) No pertinent past surgical history (Acute) Occupational Therapy Inpatient Evaluation/Re-Eval M1 PT/OT-IP Prior Functional Status Start: 08/29/18 17:07 Freq: NEEDED Status: Active Protocol: Document 08/30/18 11:06 CGR (Rec: 08/30/18 11:36 CGR [id number]) Medical Review Prior Functional Status Medical History Reviewed Yes Communication pt has aphasia Mobility and Gait per son: pt was able to manage at [facility] with just 2-3 hours of assistance from a caregiver. able to manage by herself when caregiver is not around. uses a 4WW for ambulation. Activities of Daily Living and IADL's caregiver comes in 2-3 hours a day and assists pt with showers, house chores, dressing (if needed), toileting (if needed) and medications Social History Household Members none Living Arrangements Apartment/Condo Number of Floors (Floors) One Floor Number of Stairs To Enter/Railing? pt lives at [facility] with assist 2-3 hours a day. Home Environment Standard Height Toilet Walk in Shower Home Equipment Four Wheel Walker Shower Seat with Backrest Hand Held Shower Grab Bars Near Toilet Grab Bars In Shower Employment Status Retired M2 OT-IP Current Condition Start: 08/30/18 11:05 Freq: Status: Active Protocol: Document 08/30/18 11:06 CGR (Rec: 08/30/18 11:36 CGR [email or web address]) Occupational Therapy Current Condition Current Condition Evaluation Date 08/30/18 Treatment Diagnosis Confusion/aphasia Post Operative Precautions Other Precautions Pt with HR of 120-140 in bed at time of eval. No OOB activity. M3 OT- IP Subjective and Pain Start: 08/30/18 11:05 Freq: Status: Active Protocol: Document 08/30/18 11:06 CGR (Rec: 08/30/18 11:36 CGR [email or web address]) OT- Subjective Occupational Therapy Visit Type Type Initial Evaluation Visit Start Time 09:25 Visit Stop Time 09:40 Total Visit Minutes 15 Notes All activity in bed d/t HR. Occupational Therapy Visit Comments Patient Comments Pt able to say yes and start sentences but not complete thoughts. Patient/Caregiver Goals None stated OT Pain Assessment Pain Present Pain Present Unable to Respond FLACC Pain Scale Face No particular expression Legs Normal position; relaxed Activity Quiet, moves easily M4 OT- IP ADL's Start: 08/30/18 11:05 Freq: Status: Active Protocol: Document 08/30/18 11:06 CGR (Rec: 08/30/18 11:36 CGR [email or web address]) OT [id number] Comments OT Self-Feeding Comments Not performed. OT ADL-Grooming General Evaluation Grooming Ability Total Assistance Areas Needing Assistance Retrieving/Set-up of Grooming Items Combing/Brushing Hair Comments OT Grooming Comments Provided with hair brush, pt unable to initiate activity or perform activity once demonstrated on pt. OT ADL-Oral Care General Eval Oral Care Ability Total Assistance Areas of Assistance Brushing Teeth Comments Oral Care Comments Pt unable to initiate activity . Appears confused by tooth brush. Therapist initiated brushing of teeth and pt unable to continue activity. Took tooth brush out of mouth and brushed hand. OT ADL-Dressing General Eval Upper Body Dressing Ability Total Assistance Lower Body Dressing Ability Total Assistance OT ADL-Toileting Comments OT Toileting Comments Not performed at eval d/t high HR. OT ADL-Bathing Comments OT Bathing Comments Not performed at eval d/t high HR. M5 OT- IP IADL's Start: 08/30/18 11:05 Freq: Status: Active Protocol: Document 08/30/18 11:06 CGR (Rec: 08/30/18 11:36 CGR [email or web address]) OT-Instrumental Activities of Daily Living Deficits IADL Deficits Identified Deficits Home Safety Awareness Awareness of Need for Assistance at Home Decreased Awareness Ability to Problem Solve Emergency Unable to Problem Solve Situations Medication Management Medication Management Comments Unable to perform at this time . Money Management Money Management Comments Unable to perform at this time . Meal Preparation Meal Preparation Comments Unable to perform at this time . Bee Rancher Bee Rancher Comments Unable to perform at this time . Driving Driving Comments Unable to perform at this time . M6 OT- IP Functional Cognition Start: 08/30/18 11:05 Freq: Status: Active Protocol: Document 08/30/18 11:06 CGR (Rec: 08/30/18 11:36 CGR [email or web address]) Cognitive Factors Limiting Selfcare Function Cognitive Ability Level of Alertness Confusional State Patient Orientation Name Attention Span Ability Capable of Focused Attention Cognitive Comments Cognitive Assessment Comments Will need further assessment. OT- Vision and Hearing OT- Hearing Assessment OT- Hearing Assessment WFL OT- Vision Assessment Vision Assessment Comments Pt appears to have no visual deficits but is unable to verbalize at this time. M7 OT- IP Mobility and Balance Start: 08/30/18 11:05 Freq: Status: Active Protocol: Document 08/30/18 11:06 CGR (Rec: 08/30/18 11:36 CGR [email or web address]) OT-Transfer Assessment Comments Mobility Comments Unable to perform at this time . OT- Gait Assessment Comments Gait Ability Comments Unable to perform at this time . OT- Balance Assessment Comments Other Balance Tests/Deviations/Treatment Unable to perform at this time : . M8 OT- IP Objective Assessments Start: 08/30/18 11:05 Freq: Status: Active Protocol: Document 08/30/18 11:06 CGR (Rec: 08/30/18 11:36 CGR [email or web address]) OT Gross Range of Motion Upper Extremity Range of Motion Assessment Within Functional Limits ROM Impairments PROM performed, pt unable to follow commands for AROM OT Strength Upper Extremity Strength Assessment Within Functional Limits Comments Strength Comments No noted weakness with pt's natural movements of BUE. Pt was unable to follow commands to perform. OT- Coordination Assessment Comments Coordination Comments Unable to test. OT-Muscle Tone Assessment Muscle Tone WNL Yes OT Sensation Assessment Comments Summary Comments Unable to assess but pt does have feeling to BUE noted with testing. Edema Edema Absent M9 OT- IP Assessment and Plan Start: 08/30/18 11:05 Freq: Status: Active Protocol: Document 08/30/18 11:06 CGR (Rec: 08/30/18 11:36 CGR [email or web address]) OT Summary Assessment and Plan Potential Rehabilitation Potential Good Analytic Complexity at Evaluation High Summary OT Impairments Coordination Functional Cognition Functional Mobility Self-Feeding Grooming Dressing Toileting Bathing Toilet Transfers Shower Transfers Assessment Summary Pt presents as a high complexity evaluation d/t multiple deficits noted. Pt will need STR/acute rehab upon discharge. Recommend OOB activity/assessment with improved medical status. Awaiting MRI results. Goals Self-Feeding Goal Minimal Assistance Grooming Goal Minimal Assistance Dressing Goal Minimal Assistance Toileting Goal Minimal Assistance Bathing Goal Minimal Assistance Toilet Transfer Goal Standby Assistance Shower Transfer Goal Minimal Assistance Frequency of Treatment Frequency Of Treatment Once a Day Treatment Plan OT Treatment Plan ADL Training Functional Cognition Training Functional Mobility IADL Training Therapeutic Exercises Patient/Family Education Discharge Planning Discharge Recommendations OT Discharge Recommendations SNF Rehab Acute Rehab Other Discharge Recommendations TBD based on progress. Home Equipment Needs TBD based on progress.
--- NOTE | 2018-08-30 13:24 | P.PN_ITS ---
Subjective Date Patient Seen: 08/30/18 Interval history: Patient continues to be markedly confused. She has expressive aphasia and at times word naming abnormality. She is unable to provide any history. The patient did have a head MRI which showed no evidence of an acute stroke she is encephalopathic at this time. She has been seen by speech therapy and they have downgraded her given her progressive loss of functional status. Exam Vital Signs (past 8 hours): - 08/30/18 08:00 08/30/18 08:41 08/30/18 10:00 Temperature 98.9 F Pulse Rate 145 H 138 H Respiratory Rate 24 18 Blood Pressure 140/100 H 126/71 Pulse Oximetry 97 95 08/30/18 10:50 Temperature Pulse Rate Respiratory Rate Blood Pressure Pulse Oximetry 93 Fraction of Inspired Oxygen 32 Oxygen Delivery Method Nasal Cannula Oxygen Flow Rate 3 Narrative Exam Narrative: Confused ill-appearing female Lungs: Decreased breath sounds but clear Cardiac exam: Tachycardic irregularly irregular normal S1-S2 with a 2/6 systolic ejection murmur Abdomen: Soft and nontender Extremities: No edema Neuro exam the patient is confused and unable to really follow commands. She does appear to her move all extremities. She has no neck stiffness. Objective Labs Result Diagrams: 08/30/18 06:27 08/30/18 06:27 Labs: Laboratory Results - last 24 hr 08/29/18 08/30/18 08/30/18 17:11 06:27 06:27 WBC 13.3 H D RBC 4.78 Hgb 13.7 Hct 40.7 MCV 85.1 MCH 28.7 MCHC 33.7 RDW 14.9 H Plt Count 207 Neut % (Auto) 78.8 H Lymph % (Auto) 11.6 L [place] % (Auto) 9.2 Eos % (Auto) 0.1 L Baso % (Auto) 0.3 Neut # (Auto) 26425 H Lymph # (Auto) 1500 [place] # (Auto) 1200 H Eos # (Auto) 0 Baso # (Auto) 0 PT 18.2 H INR 1.6 H Sodium 129 L Potassium 3.9 Chloride 95 L Carbon Dioxide 25 BUN 14 Creatinine 0.80 Estimated GFR > 60.0 BUN/Creatinine Ratio 17.5 Glucose 143 H Calcium 9.1 Assessment & Plan (1) Acute encephalopathy: Problem details: Patient appears more confused today than yesterday. She has not had fever, no complaints of headache, however given her persistent confusion would recommend lumbar puncture to rule out the possibility of encephalitis. Her INR is elevated will need to reverse that and then perform a lumbar puncture Current visit: Yes Status: Acute (2) Hyperlipidemia: Problem details: Hyperlipidemia, chronic continue her usual statin Current visit: No Status: Acute (3) Hypertension: Problem details: Hypertension, chronic will continue usual home medication Current visit: No Status: Acute (4) Rapid atrial fibrillation: Problem details: Paroxysmal atrial fibrillation, present on admission. Patient presents with a rapid ventricular response rate. Will continue her usual home medication. Will add additional rate control medications if needed Patient started on Cardizem 60 q.6h as meds will need to be crushed if she is unable to swallow pills Current visit: Yes Status: Acute Assessment & Plan narrative: Will obtain lumbar puncture to rule out encephalitis. Further workup will be obtained pending results of above. Quality VTE Deep Vein Thrombosis/Pulmonary Embolism Present on Admission: No
--- NOTE | 2018-08-30 13:28 | DI.RAD.S_ITS ---
PROCEDURE: XR CHEST 1V INDICATIONS: r/o infiltrate TECHNIQUE: One view of the chest was acquired. COMPARISON: [facility], CR, XR CHEST 1V, 01/23/2018, 15:12. [facility], CR, XR CHEST 1V, 08/29/2018, 8:55. FINDINGS: Surgical changes and devices: None. Lungs and pleura: Bilateral interstitial infiltrates suspicious for mild pulmonary edema secondary to congestive heart failure. There is a small left pleural effusion. No pneumothorax. Mediastinum: Mediastinal contours appear normal. Heart size is moderately increased. Bones and chest wall: No suspicious bony lesions. Overlying soft tissues appear unremarkable. IMPRESSION: Congestive heart failure. Dictated by: Destin Albarran M.D. on 08/30/2018 at 15:07 Approved by: Destin Albarran M.D. on 08/30/2018 at 15:15
--- NOTE | 2018-08-30 14:07 | DI.MRI.S_ITS ---
PROCEDURE: MR STROKE Pre- and post-contrast brain MRI, non-contrast brain MR angiogram, pre- and postcontrast neck MR angiogram INDICATIONS: APHASIA TECHNIQUE: Brain: Noncontrast axial T1 spin echo, axial T2 fast spin echo, sagittal and axial FLAIR, coronal T2 fast spin echo, axial gradient echo, axial diffusion and ADC through the brain. After the administration of contrast, axial 3D VIBE of the cranial vasculature and brain. Brain MRA: Non-contrast 3-D time of flight MR angiogram, with multiple zgmurnz-kqjbxvswe-uuivedqhsd (MIP) reformats performed. Neck MRA: Axial and sagittal TruFISP through the neck. Coronal dynamic MR angiogram during administration of contrast in the arterial and venous phases, with 3-dimenstional vqurnaq-dvvnnngvg-yqghbaxgsv (MIP) reformats constructed from subtraction images. COMPARISON: [facility], CT, CT HEAD/BRAIN WO CON, 08/29/2018, 8:50. [facility], MR, MR STROKE, 03/13/2018, 16:25. FINDINGS: Image quality: This examination is limited by involuntary motion artifact. The postcontrast images of the brain are particularly limited. BRAIN: CSF spaces: Ventricles are normal in size and shape. Basal cisterns are patent. No extra-axial fluid collections. Brain: No intracranial bleeds or mass effects. Wyman-white matter interface is normal. Diffusion weighted images show no acute ischemic insults. Brainstem appears normal. Normal intravascular flow voids are present. No abnormal intracranial enhancement. Skull and face: Calvarial marrow signal is normal. Orbits appear normal. Sinuses: Sinuses and mastoids are clear. BRAIN MR ANGIOGRAM: Anterior circulation: Intracranial internal carotid arteries are normal in size and enhancement. The flow within the paired anterior cerebral arteries is normal and symmetric. The flow within the middle cerebral arteries is normal and symmetric. The anterior communicating artery is seen. No stenoses, occlusions, or aneurysms. Posterior circulation: The visualized portions of the vertebral arteries demonstrate normal caliber, and join to form a normal appearing basilar artery. There is a prominent right posterior communicating artery seen, with an accompanying diminutive right P1 segment. This is attributed to a type origin of the right posterior cerebral artery, which is considered to be a normal developmental variant of typically no clinical consequence. 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 The flow within the posterior cerebral arteries is otherwise normal and symmetric. No stenoses, occlusions, or aneurysms. NECK MR ANGIOGRAM: Carotids: Great vessels demonstrate a conventional anatomy as they arise from the aortic arch. The origins of the common carotid arteries appear patent. The calibers and courses of both common carotid arteries are normal. The bifurcation regions demonstrate atherosclerotic irregularity. There is 30-40% narrowing seen of the right proximal internal carotid artery. No hemodynamically significant stenosis can be seen involving the left occipital internal carotid artery. Posterior circulation: The origins of the vertebral arteries appear patent. More superior portions of both vertebral arteries demonstrate normal course and caliber, and join to form a normal appearing basilar artery. The left vertebral artery is dominant to the right. Miscellaneous: Subclavian arteries appear patent. Pre-contrast images through the neck show no soft tissue abnormalities. IMPRESSION: BRAIN MRI: No findings of acute or subacute infarction can be seen. Note is made of age-appropriate brain parenchymal volume loss and chronic small vessel ischemic changes. BRAIN MR ANGIOGRAM: There is a focal fenestration seen involving the left proximal P2 segment. This was previously described as a focal narrowing. The more distal left posterior cerebral artery demonstrates a normal appearance. NECK MR ANGIOGRAM: 30-40% narrowing seen of the right proximal internal carotid artery. Dictated by: Wilian Rivas M.D. on 08/30/2018 at 10:23 Approved by: Wilian Rivas M.D. on 08/30/2018 at 10:30
[2018-08-30] MEDS: NYSTATIN CREAM 30 GM 1 APPLIC TOP ×2 (14:12→20:37)
[2018-08-30] MEDS: SODIUM CHLORIDE 0.9% 1,000 ML 84 ML IV (14:13)
--- NOTE | 2018-08-30 16:16 | CM.DANOTE ---
Discharge Planning/Care Management DCP: assessment: Case received and discussed in Team [place] this morning. Dr. Ardon noted that pt had admitted to care of hospitalist team yesterday afternoon with mental status changes and etiology of same was being worked up. Pt has expressive aphasia at baseline. OT/PT.DIRECTOR OF SALES were ordered and MRI was pending. Admission status: INPT: confirmed by Dr. Ardon: still in review as of 1619: per UR RAMAN Ordoñez. Payer: [employer] Medicare. PCP: Dr. Carissa Chen. Went to room now after noting that MRI was negative and seeing that dx still remains in process. Dr. Ardon planning lumbar puncture as she notes pt's mental status seems to be deteriorating. Pt was found lying in bed, eyes closed, O2 in place and with rapid respirations. PT did see pt yesterday and confirmed that pt does live at [facility]. She has been managing with pvt caregiver assist 2-3 hours a day and a supportive son Thomas: [phone]. P: DCP team to follow up tomorrow if possible as POC unfolds to continue the d/c planning assessment process. CM Discharge Assessment Start: 08/30/18 16:12 Freq: Status: Active Protocol: Document 08/30/18 16:15 ITV (Rec: 08/30/18 16:16 ITV [id number]) Discharge Planning Assessment Advance Directives? Yes Advance Directives on File No: copy at home- requested to bring in History Provided By Medical Record Prior Living Arrangements Detention Facility Household Members none Facility Name Admitted From: [facility] Whiteboard Updated in Patient Room with Yes name and ext. 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
[2018-08-30 16:45] LABS: Alanine Aminotransferase 19 IU/L (9-52); Albumin 3.6 g/dL (3.5-5.0); Albumin Globulin Ratio 1.3 (1.0-2.8); Alkaline Phosphatase 83 U/L (38-126); Aspartate Aminotransferase 26 IU/L (14-36); BUN Creatinine Ratio 17.5 (6-22); Bilirubin Total 1.7 mg/dL (0.2-1.3); Blood Urea Nitrogen 14 mg/dL (7-17); Calcium 8.9 mg/dL (8.4-10.2); Carbon Dioxide 22 mmol/L (22-32); Chloride 97 mmol/L (98-107); Estimated Glomerular Filt Rate > 60.0 mL/min (>60); Globulin 2.8 g/dL (1.7-4.1); Glucose 110 mg/dL (80-110); HEMOLYSIS 27 (0-50); Potassium 3.9 mmol/L (3.4-5.1); Sodium 129 mmol/L (137-145); Total Protein 6.4 g/dL (6.3-8.2)
[2018-08-30 17:12] LABS: TSH w/ Reflex to FT4 1.59 uIU/mL (0.47-4.68)
[2018-08-30 17:36] LABS: Vitamin B12 Reflex MMA if <400 335 pg/mL (239-931)
--- NOTE | 2018-08-30 18:04 | ST.IPDYTX ---
Care Team Visit Care Team Role Provider Type Carissa Chen MD Primary Care Provider Physician Specialty: Internal Medicine Address: [address] [place] [address] Email: Madelyn Dias MD Emergency Provider Physician Specialty: Emergency Medicine Address: [address] [place] [address] Email: Mame Ardon MD Admit Provider Physician Attending Provider Specialty: Internal Medicine Address: [address] [place] [address] Email: [email or web address] [email or web address] Dysphagia Treatment SHAREPOINT ARCHITECT Clinical Instructor Line Start: 08/30/18 17:51 Freq: Status: Active Protocol: Document 08/30/18 17:51 LNK (Rec: 08/30/18 17:52 LNK [id number]) Clinical Instructor Signature Clinical Instructor Clinical Instructor Yes: Denisha Rod, PhD , [facility] SHAREPOINT ARCHITECT Dysphagia Treatment Start: 08/29/18 16:13 Freq: Status: Active Protocol: Document 08/30/18 13:10 MG (Rec: 08/30/18 13:36 MG [id number]) Dysphagia Treatment Session Time Visit Start Time 12:00 Visit Stop Time 12:25 Total Visit Minutes 25 Setting Assessment Location Acute Care Visit Type Note Type Treatment Note Next Note Type Next Note Type Treatment Note Patient Information Identification Type Name ID Wristband Subjective Observations Pt was sitting upright in a chair at bedside. Nurse was adjusting pt and getting pt situated for lunch. Treatment Liquids Trialed [place] Solids Trialed Puree Dysphagia Mechanical Dysphagia Advanced Administration Type Cup Consecutive Sips Self-Feeding Dependent Feeding Oral Strategies Upright at 90 degrees Controlled Bite/Sip Size Alternate Liquids/Solids Pharyngeal Strategies Sitting Upright (90 deg) Small Bites and Sips Alternate Liquids/Solids Treatment Activities Pt was observed eating lunch. Pt demonstrated no awareness of not having any food on utensil when bringing to her mouth. Pt began to eat with hands, even with food that was not appropriate to do so (e.g ., pudding). Pt demonstrated a lack of ability to continually self feed. Assisted feeding proved to be beneficial for the pt in order to finish her lunch. Soup was transferred to a cup and pt was successful at drinking it. Throughout the time observed, pt did not show any overt s/ sx of aspiration. Wet voice was not observed post-eating or post-drinking. Pt did not cough or show signs of choking . Moderate oral residue was noted. After wash with liquid, residue was minimal. Pt was cued to linqual sweep or double swallow, but could not follow directions and implement strategy. Softer textured food appeared easier for the pt to tolerate. Pt was observed to have her eyes closed and eventually fell asleep in chair during meal time. 1:1 assist is warranted to make sure pt is getting nutritional/hydration needs met as she cannot sufficiently feed herself at this time. Assessment Patient Response to Treatment Fair Rehab Potential Fair Assessment of Improvement Pt appears very confused, which is a change from the previous day. ST is going to follow pt to make sure diet/ liquid order is safest for her . Diet Recommendations Recommendations Downgrade Diet Order Liquids Order [place] Diet Order Dysphagia Mechanical Medication Recommendations Crushed in Carrier Additional Dietary Needs Chopped Food No Straws 1:1 Assistance Aspiration Precautions Recommended Precautions Upright at 90 Degrees Alternate Liquids/Solids Frequent Rest Periods Small Bites/Sips Check for Pocketing Liquids from Cup Additional Precautions Soup in coffee cup for easier eating Treatment Plan Placement Recommendation after Discharge Snf Facility Appropriate for Continued Therapy Yes Therapy Recommendations Follow pt to make sure diet/ liquid order and precautions remains appropriate Dysphagia Goals Pt will tolerate least restrictive diet in order to meet nutrition/hydration needs while not showing overt s/sx of aspiration.
--- NOTE | 2018-08-30 18:05 | ST.IPTN ---
Care Team Visit Care Team Role Provider Type Carissa Chen MD Primary Care Provider Physician Address: [address] [place] [address], [facility] Madelyn Dias MD Emergency Provider Physician Address: [address] [place] [address], [id number] Mame Ardon MD Admit Provider Physician Attending Provider Address: [address] [place] [address], [facility] SPRING INSPECTOR Treatment Note SPRING INSPECTOR Clinical Instructor Line Start: 08/30/18 17:51 Freq: Status: Active Protocol: Document 08/30/18 17:51 LNK (Rec: 08/30/18 17:52 LNK [id number]) Clinical Instructor Signature Clinical Instructor Clinical Instructor Yes: Denisha Rod, PhD , [facility] SPRING INSPECTOR Treatment Note Start: 08/29/18 16:13 Freq: Status: Active Protocol: Document 08/30/18 13:10 MG (Rec: 08/30/18 13:36 MG [id number]) Speech Pathology Treatment Note Session Time Visit Start Time 12:25 Visit Stop Time 12:45 Total Visit Minutes 20 Setting Treatment Setting Acute Care Visit Type Note Type Treatment Note Next Note Type Next Note Type Treatment Note General Information General Information The patient is an 82-year-old female with a history of atrial fibrillation on Coumadin, hyperlipidemia, hypertension chronic pain, and pulmonary fibrosis who was brought in for complaints of confusion. The patient has expressive aphasia and is unable to provide any further history. According to the reports from the ED the patient has been not feeling well for the past few days. She was noted to be confused. The patient is awake and alert but unable to provide any further history. She has expressive aphasia. She has difficulty getting words out. At time she can answer appropriately. Subjective Identification Type Name ID Wristband Observations/Patient Presentation Pt was upright in chair next to bedside. Chief Complaint(s) Language Swallowing Patient Knowledge/Awareness of SPRING INSPECTOR Role Fair in Treatment Patient/Caregiver Compliance with Home Fair Exercise Program Objective Short Term Goals Pt will follow single step directions consistently. Pt will consistently answer yes/no questions appropriately . Treatment Activities Pt's expressive speech was characterized as automatic. Pt greeted SPRING INSPECTOR and student SPRING INSPECTOR and when asked how her food was, she responded with, pretty good. However when asked to answer specific questions, pt could not instantly answer. Pt benefitted from yes/no questions format (e.g., are you at a hospital?). Pt trialed for confrontation naming but could not answer questions (e.g., what is this? ). Pt continued to try and fold test in half, so it was stopped. Assessment Patient Response to Treatment Fair Rehab Potential Fair Impairments Identified Aphasia Apraxia of Speech Cognitive-Linguistic Skills Dysphagia Expressive Language Receptive Language Plan Therapeutic Contents Auditory Comprehension AAC Cognitive-Linguistic Training Expressive Language Training Therapy Recommendations Continue with Current Program
[2018-08-30] MEDS: CEFTRIAXONE 2 GM/50 ML FROZ.PIGGY IV (18:45)
[2018-08-30 19:18] LABS: INR 1.4 (0.9-1.3); Prothrombin Time 16.6 SECONDS (10.1-12.7)
[2018-08-30 19:22] LABS: Lactate (Lactic Acid) 1.4 mmol/L (0.7-2.1)
[2018-08-30] MEDS: LIDOCAINE 2% INJ MDV 20 ML INJ (19:40)
[2018-08-30 19:44] LABS: B Type Natriuretic Peptide 858 (<100)
[2018-08-30 19:45] LABS: Procalcitonin 0.11 ng/mL (<0.5)
--- NOTE | 2018-08-30 20:04 | PM.EVENT ---
Date Patient Seen: 08/30/18 After informed consent of her son, under sterile technique Lumbar puncture was performed. Clear CSF fluid obtained. Opening pressure of 130 noted. Patient tolerated the procedure without difficulty. CSF fluid will be sent for gram stain, protein, cell count, glucose, culture, HSV PCR
[2018-08-30] MEDS: METOPROLOL IR 25 MG TABLET 75 MG PO (20:37)
[2018-08-30 21:22] LABS: Adenovirus Not Detected (Not Detect); Bordetella pertussis Not Detected (Not Detect); Chlamydophila pneumoniae Not Detected (Not Detect); Coronavirus 229E Not Detected (Not Detect); Coronavirus HKU1 Not Detected (Not Detect); Coronavirus NL 63 Not Detected (Not Detect); Coronavirus OC43 Not Detected (Not Detect); Human Metapneumovirus Not Detected (Not Detect); Human Rhinovirus/Enterovirus Not Detected (Not Detect); Influenza A Not Detected (Not Detect); Influenza B Not Detected (Not Detect); Mycoplasma pneumoniae Not Detected (Not Detect); Parainfluenza Virus 1 Not Detected (Not Detect); Parainfluenza Virus 2 Not Detected (Not Detect); Parainfluenza Virus 3 Not Detected (Not Detect); Parainfluenza Virus 4 Not Detected (Not Detect); Respiratory Syncytial Virus Not Detected (Not Detect)
[2018-08-30 22:31] LABS: Glucose CSF 58 mg/dL (40-70); Total Protein CSF 123 mg/dL (12-60)
[2018-08-30 22:38] LABS: Appearance CSF Clear (Clear); CSF Tube Number 2; CSF Tube Volume 1.25 mL; Color CSF Colorless (Colorless); Red Blood Cell CSF 18 RBC /uL; White Blood Cell CSF 28 MONO/uL (0-5)
[2018-08-30 23:10] LABS: Mononuclear WBC CSF 95 %; Polynuclear WBC CSF 5 %
[2018-08-30 23:37] LABS: Cryptococcus neoformans/gattii Not Detected (Not Detect); Enterovirus Not Detected (Not Detect); Escherichia coli K1 Not Detected (Not Detect); Haemophilus influenzae Not Detected (Not Detect); Herpes simplex virus 1 Not Detected (Not Detect); Herpes simplex virus 2 Not Detected (Not Detect); Human herpesvirus 6 Not Detected (Not Detect); Human parechovirus Not Detected (Not Detect); Listeria monocytogenes Not Detected (Not Detect); Neisseria meningitidis Not Detected (Not Detect); Streptococcus agalactiae Not Detected (Not Detect); Streptococcus pneumoniae Not Detected (Not Detect); Varicella Zoster Virus Detected
[2018-08-31] VITALS (16 sets, daily range): BP systolic 110–144; BP diastolic 56–88; PULSE 85–130; RESP 16–20; TEMP 36.7–36.9; O2SAT 90–99
--- NOTE | 2018-08-31 00:58 | PC.NURSE ---
Patient more alert but still with expressive aphasia so communication very difficult. Will follow some directions: smiles when asked to , holds arms out (no drift) and holds legs up (both drift to bed). GCS is 13. Breath sounds with scattered expiratory wheezes. RA sat 90% so reapplied oxygen at 1L/min with sat now at 93%. HR remains irregular but in controlled rate; tele reading was afib CVR. BT present but hypoactive; abdomen is soft. Incontinent of urine. Does assist in moving but not always purposeful so will turn q2h if patient does not turn herself. Bruises on bilateral UE. Joyce-rectal area less reddened; no open areas noted. FLACC score is 0. Fall risk high by RN discretion and bed alarm is activated.
[2018-08-31] MEDS: WATER IV ×3 (01:05→16:38)
[2018-08-31] MEDS: ACYCLOVIR IV ×3 (01:05→16:38)
[2018-08-31] MEDS: DEXTROSE 5% IV ×3 (01:05→16:38)
[2018-08-31] MEDS: SODIUM CHLORIDE 0.9% FLUSH 10 ML IV ×3 (01:06→21:06)
[2018-08-31] MEDS: SODIUM CHLORIDE 0.9% 250 ML 21 ML IV (01:06)
[2018-08-31] MEDS: dilTIAZem 30 MG TABLET 60 MG PO ×4 (02:18→21:04)
[2018-08-31 07:33] LABS: INR 1.4 (0.9-1.3); Prothrombin Time 16.8 SECONDS (10.1-12.7)
[2018-08-31] MEDS: FUROSEMIDE 20 MG TABLET PO (07:45)
[2018-08-31] MEDS: ASPIRIN EC 81 MG TABLET PO (07:45)
[2018-08-31] MEDS: ESCITALOPRAM 10 MG TABLET PO (07:46)
[2018-08-31] MEDS: ATORVASTATIN 20 MG TABLET 80 MG PO (07:46)
[2018-08-31] MEDS: FLUTICASONE 120 SPRAY/16 GM SPRAY.SUSP NASAL (07:46)
[2018-08-31] MEDS: METOPROLOL IR 25 MG TABLET 75 MG PO ×2 (07:47→21:04)
[2018-08-31] MEDS: NYSTATIN CREAM 30 GM 1 APPLIC TOP ×2 (08:17→20:12)
--- NOTE | 2018-08-31 08:57 | P.PN_ITS ---
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 She is now on Acyclovir IV and Rocephin has been stopped. She is confused and rambling. The Na is 129 with an INR of 1.4. The protein in the CSF was high at 128 and the Glucose was normal at 58 but the PCR was Varicella positive. Exam Vital Signs (past 8 hours): - 08/31/18 02:18 08/31/18 05:00 08/31/18 08:09 Temperature 98.4 F 98.5 F Pulse Rate 125 H 105 H 130 H Respiratory Rate 20 18 Blood Pressure 133/67 140/84 144/83 H Pulse Oximetry 95 95 08/31/18 08:10 Temperature Pulse Rate Respiratory Rate Blood Pressure Pulse Oximetry 95 Fraction of Inspired Oxygen 32 Oxygen Delivery Method Nasal Cannula Oxygen Flow Rate 1 Narrative Exam Narrative: She is alert and seems to be struggling to understand and to communicate. There are long pauses and sometimes her responses seem relevant. Heart is Irregular irregular without murmu Lungs are CTAB Ext are no ankle edema Objective Labs Result Diagrams: 08/30/18 06:27 08/30/18 15:20 Labs: Laboratory Results - last 24 hr 08/30/18 08/30/18 08/30/18 06:27 06:47 15:20 WBC 13.3 H D RBC 4.78 Hgb 13.7 Hct 40.7 MCV 85.1 MCH 28.7 MCHC 33.7 RDW 14.9 H Plt Count 207 Neut % (Auto) 78.8 H Lymph % (Auto) 11.6 L Gentry % (Auto) 9.2 Eos % (Auto) 0.1 L Baso % (Auto) 0.3 Neut # (Auto) 84070 H Lymph # (Auto) 1500 Gentry # (Auto) 1200 H Eos # (Auto) 0 Baso # (Auto) 0 PT INR Sodium Potassium Chloride Carbon Dioxide BUN Creatinine Estimated GFR BUN/Creatinine Ratio Glucose Lactate Calcium Total Bilirubin AST ALT Alkaline Phosphatase B-Natriuretic Peptide 858 H Total Protein Albumin Globulin Albumin/Globulin Ratio Vitamin B12 Procalcitonin TSH CSF Tube Number CSF Volume CSF Appearance CSF Color CSF WBC CSF RBC CSF Mononuclear WBCs CSF Polynuclear WBCs CSF Glucose CSF Total Protein CSF C.neoform/gat PCR CSF CMV DNA (PCR) CSF Enterovirus (PCR) CSF E. coli (PCR) CSF H. influenzae (PCR) CSF HSV I (PCR) CSF HSV II (PCR) CSF HHV 6 (PCR) CSF L.monocytogenes PCR CSF N. meningitidis PCR CSF Parechovirus (PCR) CSF S. agalactiae (PCR) CSF S. pneumoniae (PCR) CSF VZV (PCR) Chlamy pneumoniae PCR Adenovirus (PCR) B.parapertussis DNA PCR Coronavirus OC43 (PCR) Coronavirus HKU1 (PCR) Coronavirus 229E (PCR) Coronavirus NL63 (PCR) Human Metapneumovir PCR Influenza Type A (PCR) Influenza Type B (PCR) M. pneumoniae (PCR) Parainfluenza 1 (PCR) Parainfluenza 2 (PCR) Parainfluenza 3 (PCR) Parainfluenza 4 (PCR) RSV (PCR) Entero/Rhino (PCR) Blood Type O Negative 08/30/18 08/30/18 08/30/18 15:20 15:20 15:20 WBC RBC Hgb Hct MCV MCH MCHC RDW Plt Count Neut % (Auto) Lymph % (Auto) Gentry % (Auto) Eos % (Auto) Baso % (Auto) Neut # (Auto) Lymph # (Auto) Gentry # (Auto) Eos # (Auto) Baso # (Auto) PT INR Sodium 129 L Potassium 3.9 Chloride 97 L Carbon Dioxide 22 BUN 14 Creatinine 0.80 Estimated GFR > 60.0 BUN/Creatinine Ratio 17.5 Glucose 110 Lactate Calcium 8.9 Total Bilirubin 1.7 H AST 26 ALT 19 Alkaline Phosphatase 83 B-Natriuretic Peptide Total Protein 6.4 Albumin 3.6 Globulin 2.8 Albumin/Globulin Ratio 1.3 Vitamin B12 335 Procalcitonin TSH 1.59 CSF Tube Number CSF Volume CSF Appearance CSF Color CSF WBC CSF RBC CSF Mononuclear WBCs CSF Polynuclear WBCs CSF Glucose CSF Total Protein CSF C.neoform/gat PCR CSF CMV DNA (PCR) CSF Enterovirus (PCR) CSF E. coli (PCR) CSF H. influenzae (PCR) CSF HSV I (PCR) CSF HSV II (PCR) CSF HHV 6 (PCR) CSF L.monocytogenes PCR CSF N. meningitidis PCR CSF Parechovirus (PCR) CSF S. agalactiae (PCR) CSF S. pneumoniae (PCR) CSF VZV (PCR) Chlamy pneumoniae PCR Adenovirus (PCR) B.parapertussis DNA PCR Coronavirus OC43 (PCR) Coronavirus HKU1 (PCR) Coronavirus 229E (PCR) Coronavirus NL63 (PCR) Human Metapneumovir PCR Influenza Type A (PCR) Influenza Type B (PCR) M. pneumoniae (PCR) Parainfluenza 1 (PCR) Parainfluenza 2 (PCR) Parainfluenza 3 (PCR) Parainfluenza 4 (PCR) RSV (PCR) Entero/Rhino (PCR) Blood Type 08/30/18 08/30/18 08/30/18 18:54 18:54 18:54 WBC RBC Hgb Hct MCV MCH MCHC RDW Plt Count Neut % (Auto) Lymph % (Auto) Gentry % (Auto) Eos % (Auto) Baso % (Auto) Neut # (Auto) Lymph # (Auto) Gentry # (Auto) Eos # (Auto) Baso # (Auto) PT 16.6 H INR 1.4 H Sodium Potassium Chloride Carbon Dioxide BUN Creatinine Estimated GFR BUN/Creatinine Ratio Glucose Lactate 1.4 Calcium Total Bilirubin AST ALT Alkaline Phosphatase B-Natriuretic Peptide Total Protein Albumin Globulin Albumin/Globulin Ratio Vitamin B12 Procalcitonin 0.11 TSH CSF Tube Number CSF Volume CSF Appearance CSF Color CSF WBC CSF RBC CSF Mononuclear WBCs CSF Polynuclear WBCs CSF Glucose CSF Total Protein CSF C.neoform/gat PCR CSF CMV DNA (PCR) CSF Enterovirus (PCR) CSF E. coli (PCR) CSF H. influenzae (PCR) CSF HSV I (PCR) CSF HSV II (PCR) CSF HHV 6 (PCR) CSF L.monocytogenes PCR CSF N. meningitidis PCR CSF Parechovirus (PCR) CSF S. agalactiae (PCR) CSF S. pneumoniae (PCR) CSF VZV (PCR) Chlamy pneumoniae PCR Adenovirus (PCR) B.parapertussis DNA PCR Coronavirus OC43 (PCR) Coronavirus HKU1 (PCR) Coronavirus 229E (PCR) Coronavirus NL63 (PCR) Human Metapneumovir PCR Influenza Type A (PCR) Influenza Type B (PCR) M. pneumoniae (PCR) Parainfluenza 1 (PCR) Parainfluenza 2 (PCR) Parainfluenza 3 (PCR) Parainfluenza 4 (PCR) RSV (PCR) Entero/Rhino (PCR) Blood Type 06/06/19 06/06/19 06/06/19 19:20 20:05 20:05 WBC RBC Hgb Hct MCV MCH MCHC RDW Plt Count Neut % (Auto) Lymph % (Auto) Gentry % (Auto) Eos % (Auto) Baso % (Auto) Neut # (Auto) Lymph # (Auto) Gentry # (Auto) Eos # (Auto) Baso # (Auto) PT INR Sodium Potassium Chloride Carbon Dioxide BUN Creatinine Estimated GFR BUN/Creatinine Ratio Glucose Lactate Calcium Total Bilirubin AST ALT Alkaline Phosphatase B-Natriuretic Peptide Total Protein Albumin Globulin Albumin/Globulin Ratio Vitamin B12 Procalcitonin TSH CSF Tube Number 2 CSF Volume 1.25 ml CSF Appearance Clear CSF Color Colorless CSF WBC 28 H CSF RBC 18 CSF Mononuclear WBCs 95 CSF Polynuclear WBCs 5 CSF Glucose 58 CSF Total Protein 123 H CSF C.neoform/gat PCR Not detected CSF CMV DNA (PCR) Not detected CSF Enterovirus (PCR) Not detected CSF E. coli (PCR) Not detected CSF H. influenzae (PCR) Not detected CSF HSV I (PCR) Not detected CSF HSV II (PCR) Not detected CSF HHV 6 (PCR) Not detected CSF L.monocytogenes PCR Not detected CSF N. meningitidis PCR Not detected CSF Parechovirus (PCR) Not detected CSF S. agalactiae (PCR) Not detected CSF S. pneumoniae (PCR) Not detected CSF VZV (PCR) Detected L Chlamy pneumoniae PCR Not detected Adenovirus (PCR) Not detected B.parapertussis DNA PCR Not detected Coronavirus OC43 (PCR) Not detected Coronavirus HKU1 (PCR) Not detected Coronavirus 229E (PCR) Not detected Coronavirus NL63 (PCR) Not detected Human Metapneumovir PCR Not detected Influenza Type A (PCR) Not detected Influenza Type B (PCR) Not detected M. pneumoniae (PCR) Not detected Parainfluenza 1 (PCR) Not detected Parainfluenza 2 (PCR) Not detected Parainfluenza 3 (PCR) Not detected Parainfluenza 4 (PCR) Not detected RSV (PCR) Not detected Entero/Rhino (PCR) Not detected Blood Type 08/31/18 07:15 WBC RBC Hgb Hct MCV MCH MCHC RDW Plt Count Neut % (Auto) Lymph % (Auto) Gentry % (Auto) Eos % (Auto) Baso % (Auto) Neut # (Auto) Lymph # (Auto) Gentry # (Auto) Eos # (Auto) Baso # (Auto) PT 16.8 H INR 1.4 H Sodium Potassium Chloride Carbon Dioxide BUN Creatinine Estimated GFR BUN/Creatinine Ratio Glucose Lactate Calcium Total Bilirubin AST ALT Alkaline Phosphatase B-Natriuretic Peptide Total Protein Albumin Globulin Albumin/Globulin Ratio Vitamin B12 Procalcitonin TSH CSF Tube Number CSF Volume CSF Appearance CSF Color CSF WBC CSF RBC CSF Mononuclear WBCs CSF Polynuclear WBCs CSF Glucose CSF Total Protein CSF C.neoform/gat PCR CSF CMV DNA (PCR) CSF Enterovirus (PCR) CSF E. coli (PCR) CSF H. influenzae (PCR) CSF HSV I (PCR) CSF HSV II (PCR) CSF HHV 6 (PCR) CSF L.monocytogenes PCR CSF N. meningitidis PCR CSF Parechovirus (PCR) CSF S. agalactiae (PCR) CSF S. pneumoniae (PCR) CSF VZV (PCR) Chlamy pneumoniae PCR Adenovirus (PCR) B.parapertussis DNA PCR Coronavirus OC43 (PCR) Coronavirus HKU1 (PCR) Coronavirus 229E (PCR) Coronavirus NL63 (PCR) Human Metapneumovir PCR Influenza Type A (PCR) Influenza Type B (PCR) M. pneumoniae (PCR) Parainfluenza 1 (PCR) Parainfluenza 2 (PCR) Parainfluenza 3 (PCR) Parainfluenza 4 (PCR) RSV (PCR) Entero/Rhino (PCR) Blood Type Assessment & Plan Assessment & Plan narrative: (1) Acute VZV encephalopathy: Problem details: Patient remains confused today. 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 She says she had a Shingles vaccine but I'm not convinced that she understands the question. Current visit: Yes Status: Acute (2) Hyperlipidemia: Problem details: Hyperlipidemia, chronic continue her usual statin Current visit: No Status: Acute (3) Hypertension: Problem details: Hypertension, chronic will continue usual home medication Current visit: No Status: Acute (4) Rapid atrial fibrillation: Problem details: Paroxysmal atrial fibrillation, present on admission. Patient presented with a rapid ventricular response rate. Patient started on Cardizem 60 q.6h and will continue Metoprolol and Coumadin. INR today after FFP given for LP yesterday. Current visit: Yes Status: Acute (5) Depression Continue Lexapro. Quality VTE Deep Vein Thrombosis/Pulmonary Embolism Present on Admission: No
--- NOTE | 2018-08-31 11:39 | PT.IPTN ---
Current Diagnoses Hyperlipidemia, unspecified (08/29/18) Encephalopathy, unspecified (08/29/18) Essential (primary) hypertension (08/29/18) Unspecified atrial fibrillation (08/29/18) Cerebral infarction, unspecified (08/29/18) Pulmonary fibrosis, unspecified (08/29/18) Disorientation, unspecified (08/29/18) Physical Therapy Treatment Note M2 PT-IP Current Condition Start: 08/29/18 17:07 Freq: NEEDED Status: Active Protocol: Document 08/29/18 16:00 AB (Rec: 08/29/18 17:27 AB [id number]) Physical Therapy Current Condition Current Condition Evaluation Date 08/29/18 Treatment Diagnosis a-fib; generalized weakness; difficulty in walking Onset Date 08/29/18 Precautions Other Precautions HR M3 PT-IP Subjective Start: 08/29/18 17:07 Freq: NEEDED Status: Active Protocol: Document 08/31/18 11:39 AB (Rec: 08/31/18 12:47 AB [email or web address]) Subjective Physical Therapy Visit Type Type Treatment Note Visit Start Time 11:39 Visit Stop Time 12:06 Total Visit Minutes 27 Number of TAX DIRECTOR Visits 0 Physical Therapy Visit Comments Patient Comments pt agreed to do PT Therapy Pain Assessment Pain Present Pain Present Denied Pain M4 PT-IP Mobility and Gait Start: 08/29/18 17:07 Freq: NEEDED Status: Active Protocol: Document 08/31/18 11:39 AB (Rec: 08/31/18 12:47 AB [id number]) PT-Transfer Assessment Sit to and From Stand Sit to and from Stand Moderate Assistance 1 Person Assistance Equipment Transfer Assistive Device Gait Belt Front Wheeled Walker Orthotic/Prosthetic Devices or Brace: No Comments Mobility Comments pt sitting on chair. O2 sat at room air sitting on chair 90-91% informed nurse and stated that O2 sat can be given at 1L/min during PT session. pt provided with O2 at 1L/min and O2 sat at 94%. pt agreed to do ambulation. completed sit to stand mod A and max cues. pt stood up for ~ 5 sec and sat back down. ( +) SOB. O2 sat checked: 96% pt completed sit to stand again mod A and agreed to ambulate. Gait Assessment Gait Gait Assistance Required: Contact Guard Assist Distance (Feet) 15 Able to Maintain Weight Bearing Status Yes During Gait Assistive Devices Assistive Device Gait Belt Front Wheeled Walker Orthotic/Prosthetic Devices or Brace: No Gait Deviations General Gait Pattern Antalgic Decreased Stride Length Decreased Feet Clearance Factors Limiting Gait Function Factors Limiting Gait Function Decreased Activity Tolerance Decreased Strength Poor Balance Poor Safety Awareness Respiratory Distress Comments Gait Comments pt refused further ambulation and just wants to rest. M5 PT-IP Objective Assessments Start: 08/29/18 17:07 Freq: NEEDED Status: Active Protocol: Document 08/29/18 16:00 AB (Rec: 08/29/18 17:27 AB [id number]) Orientation Orientation/Cognition Language Function Ability Expressive Aphasia Receptive Aphasia Word Finding Difficulties Comments unable to verbalize needs and follow directions Gross Range of Motion Lower Extremity ROM Assessment Bilaterally Impaired Impairments increase knee guarding during PROM; able to bend knees with difficulty Strength Lower Extremity Strength Assessment Bilaterally Impaired Hip 3-/5 Knee 3-/5 Muscle Tone Muscle Tone WNL Yes M6 PT-IP Treatment Start: 08/29/18 17:07 Freq: NEEDED Status: Active Protocol: Document 08/29/18 16:00 AB (Rec: 08/29/18 17:27 AB [id number]) Physical Therapy Treatment Education Education Provided Safety M7 PT-IP Assessment and Plan Start: 08/29/18 17:07 Freq: NEEDED Status: Active Protocol: Document 08/31/18 11:39 AB (Rec: 08/31/18 12:47 AB [email or web address]) PT Summary Assessment and Plan Potential Rehabilitation Potential Good Summary Impairments Pain ROM Strength Balance Coordination Sensation Tone Cognition Bed Mobility Transfers Gait Activity Tolerance Progress Towards Goals Slow Progress due to Activity Tolerance Assessment Summary pt requiring mod A with sit to stand; continues to present with decrease activity tolerance affecting mobility. pt will benefit from SNF rehab to improve strength and functional independence. Goals Bed Mobility Goal Contact Guard Assistance Transfer Goal Contact Guard Assistance Front Wheeled Walker Gait Goal Contact Guard Assistance Front Wheel Walker Gait Distance 100 Days to Meet Goals 10 Frequency of Treatment Frequency Of Treatment Once a Day Treatment Plan Physical Therapy Treatment Plan Bed Mobility Training Transfer Training Gait Training Therapeutic Exercise Balance Retraining Discharge Planning Hot or Cold Pack Neuromuscular Re-ed Coordination Retraining Manual Therapy Other Recommendations and Next Treatment transfers Focus Recommendations To Nursing Amount of Assist Needed 2 Person Assist Discharge Recommendations PT Discharge Recommendations SNF Rehab Equipment Needed for Home Before FWW if not safe with 4WW and Discharge if pt goes home
--- NOTE | 2018-08-31 13:14 | CM.DPC ---
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 OT ordered to work with pt on dysphasia and cognition testing. D/C needs still unclear at this time. Plan: SW to follow closely after OT eval and recommendations and progress while here to determine if she will be safe for [facility] or need higher level of care. EMILY Alberot
--- NOTE | 2018-08-31 14:29 | ST.IPDYTX ---
Care Team Visit Care Team Role Provider Type Carissa Chen MD Primary Care Provider Physician Specialty: Internal Medicine Address: [address] [place] [address] Email: Madelyn Dias MD Emergency Provider Physician Specialty: Emergency Medicine Address: [address] [place] [address] Email: Mame Ardon MD Admit Provider Physician Attending Provider Specialty: Internal Medicine Address: [address] [place] [address] Email: [email or web address] DYNAMOMETER TUNER Dysphagia Treatment DYNAMOMETER TUNER Clinical Instructor Line Start: 08/30/18 17:51 Freq: Status: Active Protocol: Document 08/30/18 17:51 LNK (Rec: 08/30/18 17:52 LNK [email or web address]) Clinical Instructor Signature Clinical Instructor Clinical Instructor Yes: Denisha Rod, PhD , CCC_SLP DYNAMOMETER TUNER Dysphagia Treatment Start: 08/29/18 16:13 Freq: Status: Active Protocol: Document 08/31/18 14:10 LNK (Rec: 08/31/18 14:29 LNK [email or web address]) Dysphagia Treatment Session Time Visit Start Time 11:45 Visit Stop Time 12:20 Total Visit Minutes 35 Setting Assessment Location Acute Care Visit Type Note Type Treatment Note Next Note Type Next Note Type Treatment Note Patient Information Identification Type Name ID Wristband Subjective Observations Pt remains confused and has difficulty with receptive/ expressive language skills secondary to hx of aphasia and current dx of shingles encephalitis. Pt better able to follow directions and demonstrated more frequent appropriate statements and responses. Treatment Treatment Activities Pt seen at lunch meal. Dietary had sent a tray with regular texture raw vegetable tray and alysa bread. The order on the tray was wrong diet. Pt tried to eat the foods (per nursing associate) but stopped eating secondary to difficulty. Contacted dietary and left message re: this is the second day in a row the wrong diet was sent. Pt needed less 1:1 assistance today than yesterday. For soup, she appropriately used a spoon to feed herself and was observed to use a cup appropriately as well. Pt safely tolerated her soup and nectar thick liquids - which are appropriate foods per her diet. No cough/choke, no oral residue observed. Assessment Patient Response to Treatment Good Rehab Potential Fair Diet Recommendations Recommendations Continue Current Diet Liquids Order [place] Diet Order Dysphagia Mechanical Medication Recommendations Crushed in Carrier Aspiration Precautions Recommended Precautions Upright at 90 Degrees Alternate Liquids/Solids Frequent Rest Periods Small Bites/Sips Treatment Plan Placement Recommendation after Discharge Alf Facility Appropriate for Continued Therapy Yes Therapy Recommendations Follow pt to make sure diet/ liquid order and precautions remains appropriate Dysphagia Goals Pt will tolerate least restrictive diet in order to meet nutrition/hydration needs while not showing overt s/sx of aspiration.
--- NOTE | 2018-08-31 15:25 | OT.IP.TRT ---
Current Diagnoses Hyperlipidemia, unspecified (08/29/18) Encephalopathy, unspecified (08/29/18) Essential (primary) hypertension (08/29/18) Unspecified atrial fibrillation (08/29/18) Cerebral infarction, unspecified (08/29/18) Pulmonary fibrosis, unspecified (08/29/18) Disorientation, unspecified (08/29/18) Occupational Therapy Treatment Note M2 OT-IP Current Condition Start: 08/30/18 11:05 Freq: Status: Active Protocol: Document 08/30/18 11:06 CGR (Rec: 08/30/18 11:36 CGR [email or web address]) Occupational Therapy Current Condition Current Condition Evaluation Date 08/30/18 Treatment Diagnosis Confusion/aphasia Post Operative Precautions Other Precautions Pt with HR of 120-140 in bed at time of eval. No OOB activity. M3 OT- IP Subjective and Pain Start: 08/30/18 11:05 Freq: Status: Active Protocol: Document 08/31/18 15:04 [facility] (Rec: 08/31/18 15:23 [facility] [email or web address]) OT- Subjective Occupational Therapy Visit Type Type Treatment Note Visit Start Time 14:52 Visit Stop Time 15:00 Total Visit Minutes 8 Occupational Therapy Visit Comments Patient Comments Pt able ot mostly smile and at times able to respond to yes/ no questions but not consistently. M4 OT- IP ADL's Start: 08/30/18 11:05 Freq: Status: Active Protocol: Document 08/31/18 15:04 CCC (Rec: 08/31/18 15:23 [facility] [email or web address]) OT ADL-Grooming General Evaluation Areas Needing Assistance Retrieving/Set-up of Grooming Items Comments OT Grooming Comments Pt able to wash her face and hands after having wash cloth given to stephanie. In addition brush had to be placed in her hand to initiate to brush her hair. OT ADL-Dressing Comments OT Dressing Comments Not assessed at this time. M5 OT- IP IADL's Start: 08/30/18 11:05 Freq: Status: Active Protocol: Document 08/30/18 11:06 CGR (Rec: 08/30/18 11:36 CGR [email or web address]) OT-Instrumental Activities of Daily Living Deficits IADL Deficits Identified Deficits Home Safety Awareness Awareness of Need for Assistance at Home Decreased Awareness Ability to Problem Solve Emergency Unable to Problem Solve Situations Medication Management Medication Management Comments Unable to perform at this time . Money Management Money Management Comments Unable to perform at this time . Meal Preparation Meal Preparation Comments Unable to perform at this time . Outside Sales Account Representative Outside Sales Account Representative Comments Unable to perform at this time . Driving Driving Comments Unable to perform at this time . M6 OT- IP Functional Cognition Start: 08/30/18 11:05 Freq: Status: Active Protocol: Document 08/31/18 15:04 CCC (Rec: 08/31/18 15:23 CCC [email or web address]) Cognitive Factors Limiting Selfcare Function Cognitive Ability Level of Alertness Alert Patient Orientation Name Attention Span Ability Capable of Focused Attention Unable to Sustain Attention Cognitive Comments Cognitive Assessment Comments Pt only able to state her name when prompted , My name is Michelle, what is your name? After increased time pt able to state Tali. At this time Pt not able to complete SLUMS as not able to follow directions, only orientated to name at this time. Score at this time 0/30. To assess more as pt clears mentally. M7 OT- IP Mobility and Balance Start: 08/30/18 11:05 Freq: Status: Active Protocol: Document 08/30/18 11:06 CGR (Rec: 08/30/18 11:36 CGR [email or web address]) OT-Transfer Assessment Comments Mobility Comments Unable to perform at this time . OT- Gait Assessment Comments Gait Ability Comments Unable to perform at this time . OT- Balance Assessment Comments Other Balance Tests/Deviations/Treatment Unable to perform at this time : . M8 OT- IP Objective Assessments Start: 08/30/18 11:05 Freq: Status: Active Protocol: Document 08/30/18 11:06 CGR (Rec: 08/30/18 11:36 CGR [email or web address]) OT Gross Range of Motion Upper Extremity Range of Motion Assessment Within Functional Limits ROM Impairments PROM performed, pt unable to follow commands for AROM OT Strength Upper Extremity Strength Assessment Within Functional Limits Comments Strength Comments No noted weakness with pt's natural movements of BUE. Pt was unable to follow commands to perform. OT- Coordination Assessment Comments Coordination Comments Unable to test. OT-Muscle Tone Assessment Muscle Tone WNL Yes OT Sensation Assessment Comments Summary Comments Unable to assess but pt does have feeling to BUE noted with testing. Edema Edema Absent M9 OT- IP Assessment and Plan Start: 08/30/18 11:05 Freq: Status: Active Protocol: Document 08/31/18 15:04 CCC (Rec: 08/31/18 15:23 [facility] [email or web address]) OT Summary Assessment and Plan Summary OT Impairments Coordination Functional Cognition Functional Mobility Self-Feeding Grooming Dressing Toileting Bathing Toilet Transfers Shower Transfers Progress Towards Goals Slow Progress due to Medical Issues Slow Progress due to Cognition Assessment Summary Pt still having difficulty with expressive aphasia and ability to follow commands at this time and needs lots of cues, visual cues and will need skilled rehab prior to going back to [facility]. Goals Self-Feeding Goal Minimal Assistance Grooming Goal Minimal Assistance Dressing Goal Minimal Assistance Toileting Goal Minimal Assistance Bathing Goal Minimal Assistance Toilet Transfer Goal Standby Assistance Shower Transfer Goal Minimal Assistance Frequency of Treatment Frequency Of Treatment Once a Day Treatment Plan OT Treatment Plan ADL Training Functional Cognition Training Functional Mobility IADL Training Therapeutic Exercises Patient/Family Education Discharge Planning Other Treatment Recommendations and Next Try SLUM again, one person Treatment Focus assist for toileting. Discharge Recommendations OT Discharge Recommendations SNF Rehab Acute Rehab
--- NOTE | 2018-08-31 15:28 | OT.IP.TRT ---
Current Diagnoses Hyperlipidemia, unspecified (08/29/18) Encephalopathy, unspecified (08/29/18) Essential (primary) hypertension (08/29/18) Unspecified atrial fibrillation (08/29/18) Cerebral infarction, unspecified (08/29/18) Pulmonary fibrosis, unspecified (08/29/18) Disorientation, unspecified (08/29/18) Occupational Therapy Treatment Note M2 OT-IP Current Condition Start: 08/30/18 11:05 Freq: Status: Active Protocol: Document 08/30/18 11:06 CGR (Rec: 08/30/18 11:36 CGR [email or web address]) Occupational Therapy Current Condition Current Condition Evaluation Date 08/30/18 Treatment Diagnosis Confusion/aphasia Post Operative Precautions Other Precautions Pt with HR of 120-140 in bed at time of eval. No OOB activity. M3 OT- IP Subjective and Pain Start: 08/30/18 11:05 Freq: Status: Active Protocol: Document 08/31/18 15:04 [facility] (Rec: 08/31/18 15:23 [facility] [email or web address]) OT- Subjective Occupational Therapy Visit Type Type Treatment Note Visit Start Time 14:52 Visit Stop Time 15:00 Total Visit Minutes 8 Occupational Therapy Visit Comments Patient Comments Pt able to mostly smile and at times able to respond to yes/ no questions but not consistently. M4 OT- IP ADL's Start: 08/30/18 11:05 Freq: Status: Active Protocol: Document 08/31/18 15:04 CCC (Rec: 08/31/18 15:23 [facility] [email or web address]) OT ADL-Grooming General Evaluation Areas Needing Assistance Retrieving/Set-up of Grooming Items Comments OT Grooming Comments Pt able to wash her face and hands after having wash cloth given to her. In addition brush had to be placed in her hand to initiate for her to brush her hair. OT ADL-Dressing Comments OT Dressing Comments Not assessed at this time. M5 OT- IP IADL's Start: 08/30/18 11:05 Freq: Status: Active Protocol: Document 08/30/18 11:06 CGR (Rec: 08/30/18 11:36 CGR [email or web address]) OT-Instrumental Activities of Daily Living Deficits IADL Deficits Identified Deficits Home Safety Awareness Awareness of Need for Assistance at Home Decreased Awareness Ability to Problem Solve Emergency Unable to Problem Solve Situations Medication Management Medication Management Comments Unable to perform at this time . Money Management Money Management Comments Unable to perform at this time . Meal Preparation Meal Preparation Comments Unable to perform at this time . Ceramics Instructor Ceramics Instructor Comments Unable to perform at this time . Driving Driving Comments Unable to perform at this time . M6 OT- IP Functional Cognition Start: 08/30/18 11:05 Freq: Status: Active Protocol: Document 08/31/18 15:04 CCC (Rec: 08/31/18 15:23 CCC [email or web address]) Cognitive Factors Limiting Selfcare Function Cognitive Ability Level of Alertness Alert Patient Orientation Name Attention Span Ability Capable of Focused Attention Unable to Sustain Attention Cognitive Comments Cognitive Assessment Comments Pt only able to state her name when prompted , My name is Michelle, what is your name? After increased time pt able to state Tali. At this time pt not able to complete SLUMS as not able to follow directions, only orientated to name at this time. Score at this time 0/30. To assess more as pt clears mentally. M7 OT- IP Mobility and Balance Start: 08/30/18 11:05 Freq: Status: Active Protocol: Document 08/30/18 11:06 CGR (Rec: 08/30/18 11:36 CGR [email or web address]) OT-Transfer Assessment Comments Mobility Comments Unable to perform at this time . OT- Gait Assessment Comments Gait Ability Comments Unable to perform at this time . OT- Balance Assessment Comments Other Balance Tests/Deviations/Treatment Unable to perform at this time : . M8 OT- IP Objective Assessments Start: 08/30/18 11:05 Freq: Status: Active Protocol: Document 08/30/18 11:06 CGR (Rec: 08/30/18 11:36 CGR [email or web address]) OT Gross Range of Motion Upper Extremity Range of Motion Assessment Within Functional Limits ROM Impairments PROM performed, pt unable to follow commands for AROM OT Strength Upper Extremity Strength Assessment Within Functional Limits Comments Strength Comments No noted weakness with pt's natural movements of BUE. Pt was unable to follow commands to perform. OT- Coordination Assessment Comments Coordination Comments Unable to test. OT-Muscle Tone Assessment Muscle Tone WNL Yes OT Sensation Assessment Comments Summary Comments Unable to assess but pt does have feeling to BUE noted with testing. Edema Edema Absent M9 OT- IP Assessment and Plan Start: 08/30/18 11:05 Freq: Status: Active Protocol: Document 08/31/18 15:04 CCC (Rec: 08/31/18 15:23 [facility] [email or web address]) OT Summary Assessment and Plan Summary OT Impairments Coordination Functional Cognition Functional Mobility Self-Feeding Grooming Dressing Toileting Bathing Toilet Transfers Shower Transfers Progress Towards Goals Slow Progress due to Medical Issues Slow Progress due to Cognition Assessment Summary Pt still having difficulty with expressive aphasia and ability to follow commands at this time and needs lots of cues, visual cues and will need skilled rehab prior to going back to [facility]. Goals Self-Feeding Goal Minimal Assistance Grooming Goal Minimal Assistance Dressing Goal Minimal Assistance Toileting Goal Minimal Assistance Bathing Goal Minimal Assistance Toilet Transfer Goal Standby Assistance Shower Transfer Goal Minimal Assistance Frequency of Treatment Frequency Of Treatment Once a Day Treatment Plan OT Treatment Plan ADL Training Functional Cognition Training Functional Mobility IADL Training Therapeutic Exercises Patient/Family Education Discharge Planning Other Treatment Recommendations and Next Try SLUM again, one person Treatment Focus assist for toileting. Discharge Recommendations OT Discharge Recommendations SNF Rehab Acute Rehab
[2018-08-31] MEDS: WARFARIN 5 MG TABLET PO (16:55)
--- NOTE | 2018-08-31 20:40 | PC.NURSE ---
Addendum entered by Cezar Montgomery R.N. 08/31/18 20:50: patient had a difficult time performing an pivot trans. w/ 2 staff members assist. Patient took several steps and then said no, no, no and returned back to chair. Patient was notably SOB w/ post exertion. [place] lift was then used to get patient back to bed and eneida care was done in bed. Original Note: Patient is alert to self only unable to relay birthday. Patient is up to chair at shift change, pleasant and cooperative w/ staff. Patient does not make needs known well but is able to use call light. Patient req. many prompting questions to make needs known. Discussed with house calls nurse practitioner prov. regarding no urinary output on debra shift and nothing charted since 914 this morning. Patient is SL at this time unless when receiving IV anti-bx. Verbal orders for starting IVF, see mar for details, bladder scan patient and straight cath PRN.
[2018-08-31] MEDS: SODIUM CHLORIDE 0.9% 1,000 ML 75 ML IV (21:12)
[2018-09-01] VITALS (11 sets, daily range): BP systolic 122–146; BP diastolic 64–94; PULSE 80–125; RESP 16–23; TEMP 35.8–36.9; O2SAT 91–97
[2018-09-01] MEDS: DEXTROSE 5% IV ×4 (00:08→23:56)
[2018-09-01] MEDS: ACYCLOVIR IV ×4 (00:08→23:56)
[2018-09-01] MEDS: WATER IV ×4 (00:08→23:56)
--- NOTE | 2018-09-01 00:43 | PC.NURSE ---
Addendum entered and electronically signed by Zoe Moran R.N. 09/01/18 06:33: 0630- AM Diltiazem dose given early as pt refused 0200 dose and HR sustains>130 even after IV metoprolol. Original Note: Addendum entered and electronically signed by Zoe Moran R.N. 09/01/18 06:00: 0545- Pt urinated 300 mL. HR sustaining above 130 BPM; IV Metoprolol given per [employer] orders. BP remains stable. Original Note: 2300- Pt admit for afib RVR; +staph infection found in urine; +infection in CSF as well. Pt is on contact precautions; oriented to self only; moving 2PA/[place] Lift as well. Tele in place w/ arrhythmia noted; VSS on RA; NS running as ordered into L arm midline. 1:1 feed tolerating dysphagia diet at this time, meds crushed in apple sauce. +1 edema noted upon assessment. 2330- Pt had two incontinent episodes of urine in her brief, previous RN was worried pt was not urinating so she had bladder scanned 90mL at 2200. 0200- Pt bladder scanned again after another incontinent episode; 257mL scanned no need for straight cath. 0500- Pt up again to BSC; bladder scanned again w/ 300mL. Will cont to monitor.
[2018-09-01 05:31] LABS: Add Manual Diff / Slide Review NO; Basophils Absolute Auto 100 /uL (0-100); Basophils Percent Auto 0.5 % (0-2); Eosinophils Absolute Auto 100 /uL (0-450); Eosinophils Percent Auto 0.6 % (2-4); Hematocrit 34.5 % (36-46); Hemoglobin 11.9 g/dL (12.0-16.0); Lymphocytes Absolute Auto 2600 /uL (1100-4500); Mean Corpuscular HGB Conc 34.4 % (30-36); Mean Corpuscular Hemoglobin 28.9 PG (26-34); Mean Corpuscular Volume 83.9 fL (80-100); Monocytes Absolute Auto 1400 /uL (0-900); Monocytes Percent Auto 11.8 % (3-14); Neutrophils Absolute Auto 7600 /uL (1500-7000); Neutrophils Percent Auto 65.1 % (50-75); Platelet Count 228 X10^3/uL (150-400); Red Blood Cell Count 4.11 X10^6/uL (4.0-5.2); Red Cell Distribution Width 14.6 % (11.6-14.8); White Blood Cell Count 11.6 X10^3/uL (4.5-11.0)
[2018-09-01] MEDS: METOPROLOL TARTRATE 5 MG/5 ML INJ IV (05:42)
[2018-09-01 05:47] LABS: Blood Urea Nitrogen 16 mg/dL (7-17); Carbon Dioxide 27 mmol/L (22-32); Chloride 92 mmol/L (98-107); Estimated Glomerular Filt Rate > 60.0 mL/min (>60); Glucose 124 mg/dL (80-110); HEMOLYSIS < 15 (0-50); Potassium 3.6 mmol/L (3.4-5.1); Sodium 129 mmol/L (137-145)
[2018-09-01] MEDS: dilTIAZem 30 MG TABLET 60 MG PO ×3 (06:32→21:07)
[2018-09-01 07:48] LABS: Acinetobacter baumannii Not Detected (Not Detect); Candida albicans Not Detected (Not Detect); Candida glabrata Not Detected (Not Detect); Candida krusei Not Detected (Not Detect); Candida parapsilosis Not Detected (Not Detect); Candida tropicalis Not Detected (Not Detect); E. coli Not Detected (Not Detect); Enterobacter cloacae complex Not Detected (Not Detect); Enterobacteriaceae species Not Detected (Not Detect); Enterococcus species Not Detected (Not Detect); Haemophilus influenzae Not Detected (Not Detect); Listeria monocytogenes Not Detected (Not Detect); Methicillin-resistant gene Not Detected (Not Detect); Neisseria meningitidis Not Detected (Not Detect); Proteus species Not Detected (Not Detect); Pseudomonas aeruginosa Not Detected (Not Detect); Serratia marcescens Not Detected (Not Detect); Staphylococcus species Detected (Not Detect); Streptococcus agalactiae (Gr B Not Detected (Not Detect); Streptococcus pneumonia Not Detected (Not Detect); Streptococcus pyogenes (Gr A) Not Detected (Not Detect); Streptococcus species Not Detected (Not Detect)
--- NOTE | 2018-09-01 09:13 | PM.PN.1 ---
Subjective Date Patient Seen: 09/01/18 Time Patient Seen: 09:14 Interval history: She is seen today to follow up the shingles encephalitis. She remains on acyclovir and improvements of been very slow, as is typical in this situation. She smiles a lot and is responsive/engaged but is unable to answer questions, even simple ones. Last night she refused metoprolol by mouth and so was given IV. She is growing [id number] Staph aureus in the urine, which is not considered a urinary tract infection. Her sodium is 129. The white count is 11.6. Her heart rate continues to be high, recently at 125. She is afebrile. Exam Vital Signs (past 8 hours): - 09/01/18 04:06 09/01/18 06:32 09/01/18 08:00 Temperature 97.7 F 98.4 F Pulse Rate 96 H 125 H 102 H Respiratory Rate 23 18 Blood Pressure 140/64 134/84 122/76 Pulse Oximetry 96 93 Fraction of Inspired Oxygen 24 Oxygen Delivery Method Room Air Oxygen Flow Rate 1 Narrative Exam Narrative: Alert and appears to be oriented to name but not anything else. She is engaged and smiles a lot, makes an effort to answer questions and then motions at the person asking as if to say ?You answer your own question.? Heart is regular rate and rhythm at this moment, without murmur. Lungs are clear to auscultation bilaterally. Extremities have no ankle edema. Neuro exam is normal except for the confusion/encephalopathy. She appears stronger. Objective Labs Result Diagrams: 09/01/18 05:00 09/01/18 05:00 Labs: Laboratory Results - last 24 hr 08/30/18 09/01/18 09/01/18 16:24 05:00 05:00 WBC 11.6 H RBC 4.11 Hgb 11.9 L Hct 34.5 L MCV 83.9 MCH 28.9 MCHC 34.4 RDW 14.6 Plt Count 228 Neut % (Auto) 65.1 Lymph % (Auto) 22.0 L [place] % (Auto) 11.8 Eos % (Auto) 0.6 L Baso % (Auto) 0.5 Neut # (Auto) 7600 H Lymph # (Auto) 2600 [place] # (Auto) 1400 H Eos # (Auto) 100 Baso # (Auto) 100 Sodium 129 L Potassium 3.6 Chloride 92 L Carbon Dioxide 27 BUN 16 Creatinine 0.80 Estimated GFR > 60.0 BUN/Creatinine Ratio 20.0 Glucose 124 H Calcium 9.0 A. baumannii (PCR) Not detected Jada albicans (PCR) Not detected C. glabrata (PCR) Not detected C. krusei (PCR) Not detected C. parapsilosis (PCR) Not detected C. tropicalis (PCR) Not detected Enterobacteriac sp PCR Not detected E. cloacae complex PCR Not detected Enterococcus sp PCR Not detected E. coli (PCR) Not detected H. influenzae (PCR) Not detected Klebsiella oxytoca PCR Not detected Klebsiella pneumoniae Not detected List. monocytogenes PCR Not detected N. meningitidis (PCR) Not detected Proteus species (PCR) Not detected Serratia marcescens PCR Not detected Staphylococcus sp PCR Detected H Staph aureus (PCR) Not detected mecA-Methicil Res Gene Not detected Streptococcus sp PCR Not detected Group A Strep (PCR) Not detected Strep agalactiae (PCR) Not detected Strep pneumoniae (PCR) Not detected P. aeruginosa (PCR) Not detected Keisha/B-Vanco Res Genes Not Reportable KPC-Carbap Res Gene PCR Not Reportable Assessment & Plan Assessment & Plan narrative: (1) Acute VZV encephalopathy: Problem details: Patient remains confused today. 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 She said she had a Shingles vaccine but I'm not convinced that she understood the question. Current visit: Yes Status: Acute (2) Hyperlipidemia: Problem details: Hyperlipidemia, chronic continue her usual statin Current visit: No Status: Acute (3) Hypertension: Problem details: Hypertension, chronic will continue usual home medication Current visit: No Status: Acute (4) Rapid atrial fibrillation: Problem details: Paroxysmal atrial fibrillation, present on admission. Patient presented with a rapid ventricular response rate. Patient started on Cardizem 60 q.6h and will continue Metoprolol and Coumadin. INR was 1.4 yesterday after fresh frozen plasma and will be repeated tomorrow. She continues on Coumadin at her home doses. Current visit: Yes Status: Acute (5) Depression Continue Lexapro. (6) Congestive Heart Failure -type and acuity is clinically unable to be determined. -continue Lasix 20 mg p.o. daily (9) hyponatremia -stable at 129 and probably caused by the encephalitis. -low-sodium of no clinical significance Quality VTE Deep Vein Thrombosis/Pulmonary Embolism Present on Admission: No
[2018-09-01] MEDS: ASPIRIN EC 81 MG TABLET PO (09:23)
[2018-09-01] MEDS: METOPROLOL IR 25 MG TABLET 75 MG PO ×2 (09:23→21:06)
[2018-09-01] MEDS: ATORVASTATIN 20 MG TABLET 80 MG PO (09:23)
[2018-09-01] MEDS: ESCITALOPRAM 10 MG TABLET PO (09:24)
[2018-09-01] MEDS: FLUTICASONE 120 SPRAY/16 GM SPRAY.SUSP NASAL (09:24)
--- NOTE | 2018-09-01 10:02 | CM.DPC ---
Addendum entered by Meg Weaver LPN 09/01/18 12:52: Litzy has called back. The acyclovir is very inexpensive and will not present a barrier to acceptance. Called [facility]. She says she has not heard back from August and has no update on ? of insurance/network. Addendum entered by Meg Weaver LPN 09/01/18 12:45: Spoke again with Litzy/MARIELOS re ? cost of the antibiotic treatment and went over specifics with her. She will get it priced out today and will call back with the info. P: at this point: [facility] or [facility], likely Sunday 09/[address] Restrepo and when insurance auth is in place. Addendum entered by Meg Weaver LPN 09/01/18 12:17: Spoke at length by phone with MARK Guzman: [phone]. Went over the POC as outlined by Dr. Restrepo and the details involved in a SNF d/c plan. Thomas says his mother has never been in a SNf setting but can see why this will be needed. SNF: choice list: discussed: within the [facility]. [facility] identified as first choice: IF they are in network and can accept pt. Explained importance of a Plan B: referral now given to Litzy: MARIELOS. She confirms they are network since May 2018. (she has just called back and said they would be happy to accept pt if she is ready on Monday and she anticipates that, with the documentation provided today, she could be able to obtain an auth on Monday within 2 hours. She will not proceed further until she knows if [facility] can accept pt.). Asked Thomas more about pt's level of function at [facility]. He said he and his moved her here from [place] a year ago and she has been living at [facility]. 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 He states, if she is tired she can sometimes have trouble finding the word she wants but other roberts expresses herself well and has always been very alert and aware. He said that when she gets ill and especially if she has an infection or issues with her heart her aphasia gets much worse and she gets very confused. He is hopeful that she will be able to improve to the point where she can return to [facility]. Original Note: DCP: continued: Case received and discussed in Team Rounds. Dr. Restrepo noted that pt now has dx of shingles encephalitis and will need, in addition to PT/OT/CLINICAL DOCUMENTATION CONSULTANT IV antibiotics every 6 hours for 10-14 days total (with current antibiotic and dosing). Have left a message with Mana and Lia/[facility] to see if they are contracted with [facility] Medicare and specifics re the snf auth process for this insurance. P: check in with pt and contact her son Thomas for discussion of d/c issues and options.
[2018-09-01] MEDS: SODIUM CHLORIDE 0.9% FLUSH 10 ML IV ×2 (11:53→17:42)
--- NOTE | 2018-09-01 12:43 | PT.IPTN ---
Current Diagnoses Hyperlipidemia, unspecified (08/29/18) Encephalopathy, unspecified (08/29/18) Essential (primary) hypertension (08/29/18) Cerebral infarction, unspecified (08/29/18) Pulmonary fibrosis, unspecified (08/29/18) Retention of urine, unspecified (08/29/18) Disorientation, unspecified (08/29/18) Altered mental status, unspecified (08/29/18) Physical Therapy Treatment Note M2 PT-IP Current Condition Start: 08/29/18 17:07 Freq: NEEDED Status: Active Protocol: Document 08/29/18 16:00 AB (Rec: 08/29/18 17:27 AB [id number]) Physical Therapy Current Condition Current Condition Evaluation Date 08/29/18 Treatment Diagnosis a-fib; generalized weakness; difficulty in walking Onset Date 08/29/18 Precautions Other Precautions HR M3 PT-IP Subjective Start: 08/29/18 17:07 Freq: NEEDED Status: Active Protocol: Document 09/01/18 12:33 GGD (Rec: 09/01/18 12:43 GGD [id number]) Subjective Physical Therapy Visit Type Type Treatment Note Visit Start Time 12:05 Visit Stop Time 12:30 Total Visit Minutes 25 Number of MEDICARE SALES REPRESENTATIVE Visits 1 Physical Therapy Visit Comments Patient Comments pt want's to go back to bed. M4 PT-IP Mobility and Gait Start: 08/29/18 17:07 Freq: NEEDED Status: Active Protocol: Document 09/01/18 12:33 GGD (Rec: 09/01/18 12:43 GGD [id number]) PT-Bed Mobility Assessment Sit to Supine Sit to Supine Minimal Assistance 1 Person Assistance PT-Transfer Assessment Sit to and From Stand Sit to and from Stand Minimal Assistance 1 Person Assistance Use of Upper Extremities Equipment Transfer Assistive Device Gait Belt Front Wheeled Walker Orthotic/Prosthetic Devices or Brace: No Transfers Transfer Destination Bed Chair Transfer Ability Level of Assist Minimal Assistance 1 Person Assistance Use of Upper Extremities Gait Assessment Gait Gait Assistance Required: Contact Guard Assist Minimum Assistance 1 Person Assist Distance (Feet) 30 Able to Maintain Weight Bearing Status Yes During Gait Assistive Devices Assistive Device Gait Belt Front Wheeled Walker Orthotic/Prosthetic Devices or Brace: No Gait Deviations General Gait Pattern Antalgic Decreased Stride Length Decreased Feet Clearance Factors Limiting Gait Function Factors Limiting Gait Function Decreased Activity Tolerance Decreased Strength Poor Balance Poor Safety Awareness Respiratory Distress M5 PT-IP Objective Assessments Start: 08/29/18 17:07 Freq: NEEDED Status: Active Protocol: Document 08/29/18 16:00 AB (Rec: 08/29/18 17:27 AB [id number]) Orientation Orientation/Cognition Language Function Ability Expressive Aphasia Receptive Aphasia Word Finding Difficulties Comments unable to verbalize needs and follow directions Gross Range of Motion Lower Extremity ROM Assessment Bilaterally Impaired Impairments increase knee guarding during PROM; able to bend knees with difficulty Strength Lower Extremity Strength Assessment Bilaterally Impaired Hip 3-/5 Knee 3-/5 Muscle Tone Muscle Tone WNL Yes M6 PT-IP Treatment Start: 08/29/18 17:07 Freq: NEEDED Status: Active Protocol: Document 08/29/18 16:00 AB (Rec: 08/29/18 17:27 AB [id number]) Physical Therapy Treatment Education Education Provided Safety M7 PT-IP Assessment and Plan Start: 08/29/18 17:07 Freq: NEEDED Status: Active Protocol: Document 09/01/18 12:33 GGD (Rec: 09/01/18 12:43 GGD [id number]) PT Summary Assessment and Plan Summary Assessment Summary Pt needed less assist. She was able to progress gait distance, but with decrease activity tolerance. She improved with following simple cues. Pt will benefit from SNF rehab. Frequency of Treatment Frequency Of Treatment Once a Day Treatment Plan Physical Therapy Treatment Plan Bed Mobility Training Transfer Training Gait Training Therapeutic Exercise Balance Retraining Discharge Planning Hot or Cold Pack Neuromuscular Re-ed Coordination Retraining Manual Therapy Recommendations To Nursing Amount of Assist Needed 1 Person Assist 2 Person Assist Discharge Recommendations PT Discharge Recommendations SNF Rehab
[2018-09-01 15:18] LABS: RPR Screen Nonreactive (Nonreactive)
[2018-09-01] MEDS: WARFARIN 5 MG TABLET PO (16:20)
[2018-09-01] MEDS: ACETAMINOPHEN 325 MG TABLET 650 MG PO (16:21)
--- NOTE | 2018-09-01 17:00 | PC.NURSE ---
Addendum entered by Clary Vilchis R.N. 09/01/18 21:56: Discussed with VINH Tapia, pt's urinary output this shift of 75 cc's concentrated dark urine as well as oral intake approximately 150-180 cc's. Verbal orders to initiate iv fluids obtained and entered. Continuous pulse oximeter placed. Informed VINH Tapia, assessed pt with fine crackles left posterior lung garcia earlier in shift. Addendum entered by Clary Vilchis R.N. 09/01/18 21:40: Pt mostly sleeping this shift. Rouses easily to voice. Cleansed under pt's breasts, abdominal pannus and groin BL. Faint erythema to groin BL with no yeasty odor. Applied nystatin ointment sparingly under right breast and groin BL. Meds crushed in applesauce and HOB elevated x 20 minutes. Offered thickened water and pt accepts. Denies need to void. Addendum entered by Clary Vilchis R.N. 09/01/18 18:20: Pt accepts several bites of food when offered although initally declines to eat. Drinks entire glass of thickened juice when offered as well as half of milk. Assist to commode to void dark elizabeth urine. Into bed with alarm in place. Original Note: Pt attempting out of bed and bed alarm sounds. Staff members x 2 respond immediately. Pt vaguely in few words describes legs hurt. Assist with gait belt and walker to recliner and given crushed tylenol in applesauce as well as warm blankets. Pt is oriented to self only. Smiles easily and makes eye contact. Chair alarm in place. Bruises to BL UE's. Fine crackles to left anterior lung field and left posterior garcia. Coarse breath sounds to right posterior lower lobe. Apical rate is irregular. Acyclovir infusing as per emar via LUE midline without difficulty. Secured with coban.
[2018-09-01] MEDS: NYSTATIN CREAM 30 GM 1 APPLIC TOP (21:08)
[2018-09-01] MEDS: SODIUM CHLORIDE 0.9% 1,000 ML 50 ML IV (22:12)
[2018-09-02] VITALS (12 sets, daily range): BP systolic 129–142; BP diastolic 65–96; PULSE 78–104; RESP 16–18; TEMP 36.1–36.3; O2SAT 94–97
[2018-09-02] MEDS: dilTIAZem 30 MG TABLET 60 MG PO ×4 (02:08→21:00)
[2018-09-02 06:06] LABS: INR 2.2 (0.9-1.3); Prothrombin Time 25.6 SECONDS (10.1-12.7)
[2018-09-02] MEDS: ACYCLOVIR IV ×3 (08:22→23:49)
[2018-09-02] MEDS: WATER IV ×3 (08:22→23:49)
[2018-09-02] MEDS: DEXTROSE 5% IV ×3 (08:22→23:49)
[2018-09-02] MEDS: ATORVASTATIN 20 MG TABLET 80 MG PO (08:23)
[2018-09-02] MEDS: FLUTICASONE 120 SPRAY/16 GM SPRAY.SUSP NASAL (08:23)
[2018-09-02] MEDS: METOPROLOL IR 25 MG TABLET 75 MG PO ×2 (08:24→21:00)
--- NOTE | 2018-09-02 09:11 | PM.PN.1 ---
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 She is now on day 3 of a 14 day IV acyclovir treatment plan. This is discussed with her son Thomas. Each day she looks just slightly better but this will be a long recovery process. Her oral intake is quite minimal, she seems to indicate that food and liquids do not taste good, she is on a small supportive IV fluid infusion rate. Exam Vital Signs (past 8 hours): - 09/02/18 02:08 09/02/18 05:00 09/02/18 07:53 Temperature 97.2 F L 97.4 F L Pulse Rate 90 79 95 H Respiratory Rate 18 16 Blood Pressure 138/86 132/96 H 137/95 H Pulse Oximetry 96 94 Fraction of Inspired Oxygen 24 Oxygen Delivery Method Room Air Oxygen Flow Rate 0 Narrative Exam Narrative: She greets me appropriately and then answers all further questions or attempts to interact with confused aphasia. No apparent distress. Lungs are clear to auscultation bilaterally. Extremities have no ankle edema. Heart is irregularly irregular without murmur. Objective Labs Result Diagrams: 09/01/18 05:00 09/01/18 05:00 Labs: Laboratory Results - last 24 hr 08/30/18 09/02/18 15:20 05:15 PT 25.6 H D INR 2.2 H Serum VDRL Nonreactive Assessment & Plan Assessment & Plan narrative: (1) Acute VZV encephalopathy: Problem details: Patient remains confused but seems to improve, just slightly every day. Expressive aphasia and some receptive aphasia appears to be present. 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 She said she had a Shingles vaccine but I'm not convinced that she understood the question. I discussed this with her son Thomas today, she will need a total of 14 days IV acyclovir, and should be able to be stable for discharge on that medicine to a local shelter facility by tomorrow. Current visit: Yes Status: Acute (2) Hyperlipidemia: Problem details: Hyperlipidemia, chronic continue her usual statin Current visit: No Status: Acute (3) Hypertension: Problem details: Hypertension, chronic will continue usual home medication Current visit: No Status: Acute (4) Rapid atrial fibrillation: Problem details: Paroxysmal atrial fibrillation, present on admission. Patient presented with a rapid ventricular response rate. Patient started on Cardizem 60 q.6h and will continue Metoprolol and Coumadin. INR is 2.2 on Coumadin at her home doses. Current visit: Yes Status: Acute (5) Depression Continue Lexapro. (6) Congestive Heart Failure -type and acuity is clinically unable to be determined. -continue Lasix 20 mg p.o. daily (9) hyponatremia -stable at 129 and probably caused by the encephalitis. -low-sodium of no clinical significance Quality VTE Deep Vein Thrombosis/Pulmonary Embolism Present on Admission: No
[2018-09-02] MEDS: FUROSEMIDE 20 MG TABLET PO (09:38)
[2018-09-02] MEDS: ASPIRIN EC 81 MG TABLET PO (09:38)
[2018-09-02] MEDS: ESCITALOPRAM 10 MG TABLET PO (09:38)
--- NOTE | 2018-09-02 10:49 | CM.DPC ---
Addendum entered by Meg Weaver LPN 09/02/18 14:34: [facility] has called, is not able to access and EMR info and August is not available to assist. She requests a fax to the nurses station for clinical so that they can look into this case./done. Original Note: DCP: continued: case discussed in Team Rounds with Dr. Restrepo noting slight improvement in pt. He agreed to call MARK son Thomas as Thomas had not been updated by a physician since the dx of shingles encephalitis was identified. Dr. Restrepo planned to look further at the appropriate duration of the acyclovir IV treatment. Spoke later with MARK Guzman by phone. He plans to be in sometime today to check on his mother. He confirms that Dr. Restrepo called him this morning and he knows that dc is planned for Monday. [facility] is poised to take pt Monday pending insurance auth. Litzy is aware that they are plan B snf since they are not located in [place]. [facility]: first choice: Followed up with [facility]/roque this morning. She said she had just heard from August/ and that we are working on it. [facility] is having difficulty getting EMR access and is not getting the efaxs....she is working with August on this. Discussed the SNF specifics with Thomas this morning.
--- NOTE | 2018-09-02 10:55 | PT.IPTN ---
Current Diagnoses Hyperlipidemia, unspecified (08/29/18) Encephalopathy, unspecified (08/29/18) Essential (primary) hypertension (08/29/18) Cerebral infarction, unspecified (08/29/18) Pulmonary fibrosis, unspecified (08/29/18) Retention of urine, unspecified (08/29/18) Disorientation, unspecified (08/29/18) Altered mental status, unspecified (08/29/18) Physical Therapy Treatment Note M2 PT-IP Current Condition Start: 08/29/18 17:07 Freq: NEEDED Status: Active Protocol: Document 08/29/18 16:00 AB (Rec: 08/29/18 17:27 AB [id number]) Physical Therapy Current Condition Current Condition Evaluation Date 08/29/18 Treatment Diagnosis a-fib; generalized weakness; difficulty in walking Onset Date 08/29/18 Precautions Other Precautions HR M3 PT-IP Subjective Start: 08/29/18 17:07 Freq: NEEDED Status: Active Protocol: Document 09/02/18 10:55 RCC (Rec: 09/02/18 11:50 RCC [id number]) Subjective Physical Therapy Visit Type Type Treatment Note Visit Start Time 10:55 Visit Stop Time 11:20 Total Visit Minutes 25 Notes pt sitting on EOB with nursing at start of session. Number of TEST KITCHEN HOME ECONOMIST Visits 0 Physical Therapy Visit Comments Patient Comments Pt reports she is tired, she states she lives in [place]. M4 PT-IP Mobility and Gait Start: 08/29/18 17:07 Freq: NEEDED Status: Active Protocol: Document 09/02/18 10:55 RCC (Rec: 09/02/18 11:50 RCC [id number]) PT-Transfer Assessment Sit to and From Stand Sit to and from Stand Contact Guard Assistance 1 Person Assistance Use of Upper Extremities Equipment Transfer Assistive Device Gait Belt Front Wheeled Walker Transfers Transfer Destination Chair Toilet Transfer Technique Stand Step Pivot Transfer Ability Level of Assist Minimal Assistance 1 Person Assistance Use of Upper Extremities Gait Assessment Gait Gait Assistance Required: Contact Guard Assist Distance (Feet) 40 Assistive Devices Assistive Device Gait Belt Front Wheeled Walker Gait Deviations General Gait Pattern Decreased Stride Length Decreased Feet Clearance Wide Based Gait Factors Limiting Gait Function Factors Limiting Gait Function Decreased Activity Tolerance Decreased Strength Poor Balance Poor Safety Awareness Comments Gait Comments chair follow for gait gait x10 ft to BR with OT assist, gait x10 ft in room then required sitting rest break x1 min at bed; then gait x40 ft. O2 96-98% on RA M5 PT-IP Objective Assessments Start: 08/29/18 17:07 Freq: NEEDED Status: Active Protocol: Document 08/29/18 16:00 AB (Rec: 08/29/18 17:27 AB [id number]) Orientation Orientation/Cognition Language Function Ability Expressive Aphasia Receptive Aphasia Word Finding Difficulties Comments unable to verbalize needs and follow directions Gross Range of Motion Lower Extremity ROM Assessment Bilaterally Impaired Impairments increase knee guarding during PROM; able to bend knees with difficulty Strength Lower Extremity Strength Assessment Bilaterally Impaired Hip 3-/5 Knee 3-/5 Muscle Tone Muscle Tone WNL Yes M6 PT-IP Treatment Start: 08/29/18 17:07 Freq: NEEDED Status: Active Protocol: Document 08/29/18 16:00 AB (Rec: 08/29/18 17:27 AB [id number]) Physical Therapy Treatment Education Education Provided Safety M7 PT-IP Assessment and Plan Start: 08/29/18 17:07 Freq: NEEDED Status: Active Protocol: Document 09/02/18 10:55 RCC (Rec: 09/02/18 11:50 RCC [id number]) PT Summary Assessment and Plan Summary Progress Towards Goals Slow Progress due to Medical Issues Slow Progress due to Activity Tolerance Slow Progress - Other Assessment Summary Pt able to ambulate with multiple breaks during session , O2 saturation WNL during session. Pt is still confused and requires frequent cuing. Pt is still not safe to return back to prior living situation, but is making progress with functional mobility. Goals Bed Mobility Goal Contact Guard Assistance Transfer Goal Contact Guard Assistance Front Wheeled Walker Gait Goal Contact Guard Assistance Front Wheel Walker Gait Distance 100 Days to Meet Goals 10 Frequency of Treatment Frequency Of Treatment Once a Day Treatment Plan Other Recommendations and Next Treatment gait as tolerated Focus Recommendations To Nursing Amount of Assist Needed 1 Person Assist 2 Person Assist Discharge Recommendations PT Discharge Recommendations SNF Rehab
--- NOTE | 2018-09-02 12:08 | OT.IP.TRT ---
Current Diagnoses Hyperlipidemia, unspecified (08/29/18) Encephalopathy, unspecified (08/29/18) Essential (primary) hypertension (08/29/18) Cerebral infarction, unspecified (08/29/18) Pulmonary fibrosis, unspecified (08/29/18) Retention of urine, unspecified (08/29/18) Disorientation, unspecified (08/29/18) Altered mental status, unspecified (08/29/18) Occupational Therapy Treatment Note M2 OT-IP Current Condition Start: 08/30/18 11:05 Freq: Status: Active Protocol: Document 08/30/18 11:06 CGR (Rec: 08/30/18 11:36 CGR [id number]) Occupational Therapy Current Condition Current Condition Evaluation Date 08/30/18 Treatment Diagnosis Confusion/aphasia Post Operative Precautions Other Precautions Pt with HR of 120-140 in bed at time of eval. No OOB activity. M3 OT- IP Subjective and Pain Start: 08/30/18 11:05 Freq: Status: Active Protocol: Document 09/02/18 11:32 CGR (Rec: 09/02/18 12:08 CGR [id number]) OT- Subjective Occupational Therapy Visit Type Type Treatment Note Visit Start Time 10:55 Visit Stop Time 11:20 Total Visit Minutes 25 Notes Co-treat with P.T. Occupational Therapy Visit Comments Patient Comments I have a disease. OT Pain Assessment Pain When Pain Assessed At Rest Pain Present Pain Present Unable to Respond M4 OT- IP ADL's Start: 08/30/18 11:05 Freq: Status: Active Protocol: Document 09/02/18 11:32 CGR (Rec: 09/02/18 12:08 CGR [id number]) OT [id number] Comments OT Self-Feeding Comments Not performed OT ADL-Grooming General Evaluation Grooming Ability Minimal Assistance Areas Needing Assistance Retrieving/Set-up of Grooming Items Combing/Brushing Hair Comments OT Grooming Comments Brushed hair and washed hands standing at sink. OT ADL-Oral Care Comments Oral Care Comments Not performed in this session. Pt states that she already performed. OT ADL-Dressing General Eval Lower Body Dressing Ability Total Assistance Areas Needing Assistance Socks OT ADL-Toileting General Evaluation Toileting Ability Standby Assistance Areas Needing Assistance Manage Clothing Comments OT Toileting Comments Urinated seated on toilet. Pt was able to manage clothing with SBA. M5 OT- IP IADL's Start: 08/30/18 11:05 Freq: Status: Active Protocol: Document 08/30/18 11:06 CGR (Rec: 08/30/18 11:36 CGR [id number]) OT-Instrumental Activities of Daily Living Deficits IADL Deficits Identified Deficits Home Safety Awareness Awareness of Need for Assistance at Home Decreased Awareness Ability to Problem Solve Emergency Unable to Problem Solve Situations Medication Management Medication Management Comments Unable to perform at this time . Money Management Money Management Comments Unable to perform at this time . Meal Preparation Meal Preparation Comments Unable to perform at this time . Slps Slps Comments Unable to perform at this time . Driving Driving Comments Unable to perform at this time . M6 OT- IP Functional Cognition Start: 08/30/18 11:05 Freq: Status: Active Protocol: Document 09/02/18 11:32 CGR (Rec: 09/02/18 12:08 CGR [id number]) Cognitive Factors Limiting Selfcare Function Cognitive Ability Level of Alertness Alert Confusional State Patient Orientation Name Attention Span Ability Capable of Focused Attention Ability to Follow Commands Able to Follow One Step Commands Cognitive Comments Cognitive Assessment Comments Pt able to states that she is sick but she is not able to give correct yes no answers to other orientation questions. M7 OT- IP Mobility and Balance Start: 08/30/18 11:05 Freq: Status: Active Protocol: Document 09/02/18 11:32 CGR (Rec: 09/02/18 12:08 CGR [id number]) OT- Bed Mobility Assessment Scooting Scooting to Edge of Bed Independent OT-Transfer Assessment Sit to and From Stand Sit to and from Stand Contact Guard Assistance Transfers Transfer Ability Contact Guard Assistance Technique Transfer Destination Bed Chair Toilet Devices Transfer Assistive Devices Gait Belt Front Wheeled Walker Comments Mobility Comments Ambulated into garcia after ALDs in room. See p.t. note for further information. OT- Balance Assessment Sitting Balance and Reactions Static Sitting Balance Ability Normal Dynamic Sitting Balance Ability Normal Standing Balance and Reactions Static Standing Balance Ability Good M8 OT- IP Objective Assessments Start: 08/30/18 11:05 Freq: Status: Active Protocol: Document 08/30/18 11:06 CGR (Rec: 08/30/18 11:36 CGR [id number]) OT Gross Range of Motion Upper Extremity Range of Motion Assessment Within Functional Limits ROM Impairments PROM performed, pt unable to follow commands for AROM OT Strength Upper Extremity Strength Assessment Within Functional Limits Comments Strength Comments No noted weakness with pt's natural movements of BUE. Pt was unable to follow commands to perform. OT- Coordination Assessment Comments Coordination Comments Unable to test. OT-Muscle Tone Assessment Muscle Tone WNL Yes OT Sensation Assessment Comments Summary Comments Unable to assess but pt does have feeling to BUE noted with testing. Edema Edema Absent M9 OT- IP Assessment and Plan Start: 08/30/18 11:05 Freq: Status: Active Protocol: Document 09/02/18 11:32 CGR (Rec: 09/02/18 12:08 CGR [id number]) OT Summary Assessment and Plan Potential Rehabilitation Potential Excellent Summary OT Impairments Coordination Functional Cognition Functional Mobility Self-Feeding Grooming Dressing Toileting Bathing Toilet Transfers Shower Transfers Progress Towards Goals Progressing Toward Goals Assessment Summary Pt is still having difficulty with expressing herself and is oriented x 1 only. Pt is able to make simple statements and answer automatic questions but is inconsistent with yes no questions. Goals Self-Feeding Goal Independent Grooming Goal Independent Dressing Goal Independent Toileting Goal Independent Bathing Goal Independent Toilet Transfer Goal Independent Shower Transfer Goal Independent OT-Other Goals Goals updated on 09/02/18 given pts progress. Frequency of Treatment Frequency Of Treatment Once a Day Treatment Plan OT Treatment Plan ADL Training Functional Cognition Training Functional Mobility IADL Training Therapeutic Exercises Patient/Family Education Discharge Planning Discharge Recommendations OT Discharge Recommendations SNF Rehab Acute Rehab Other Discharge Recommendations TBD based on progress. Home Equipment Needs TBD based on progress.
--- NOTE | 2018-09-02 14:02 | PC.NURSE ---
Patient has been complaining of stomach pain throughout shift. When asked pt is unable to describe her pain. Patient has been refused all food today. States Nothing tastes good. I have been encouraging patient to continue drinking and offering snacks regularly. Pt will take few sips but nothing more. Only asking for bubble gum. Patient has been attempting to have a bowel movement with little success. 3x incontinent and 2x brown smears. When wiping I noticed small amounts bright red blood on the wipes from bottom. RN was notified of all the above.
[2018-09-02] MEDS: POLYETHYLENE GLYCOL 3350 17 GM POWD.PACK PO (14:12)
[2018-09-02] MEDS: WARFARIN 5 MG TABLET PO (16:44)
[2018-09-02] MEDS: ACETAMINOPHEN 325 MG TABLET 650 MG PO (16:45)
[2018-09-02] MEDS: GLYCERIN SUPP ADULT 1 SUPP 1 EACH PR (16:51)
--- NOTE | 2018-09-02 17:19 | PC.NURSE ---
Addendum entered by Clary Vilchis R.N. 09/02/18 22:25: Up to commode with one assist for dark elizabeth void. Cleansed groin BL, dried and applied nystatin cream. As per last evening shift, barely visible erythema. Pt mostly sleeping this evening shift. Cooperative. Takes meds crushed in chocolate pudding easier than applesauce. Thickened water offered. Addendum entered by Clary Vilchis R.N. 09/02/18 18:06: Pt attempts out of chair and chair alarm sounds. Three staff members attend to pt who confirms needs to use toilet. Assist to commode and pt requires verbal cueing. Difficulty following commands. Medium, formed, brown stool passed along with glycerin suppository. Careful inspection of pt's skin to back reveals vertical pattern of symmetrical red, raised lesions to right back. Small lesion to left upper back with vesicular center. Returned to contact precautions and supervisor painting shipyard, Tanja croft. Pt returned to recliner with chair alarm in place following brief change. Original Note: Pt is wide awake and conversant with this principal technical writer. Some speech is clear and pertinent; other speech reflects pt's disorientation. Who is that couple in the garage? Reorients easily. More conversant than last evening. Demonstrates some word searching. Denies pain at rest in bed. Pt's son comes to visit and agrees pt is more conversant. Following assessment of this patient this principal technical writer leaves room and pt is attempting out of bed. Inquired of pt what is needed/wanted and pt replies, My hands hurt and I need to go to the bathroom. Assist x 1 to commode for smear of stool. Administered glycerin suppository while pt is up to commode. Assist x 1 to chair for evening meal. Questioned pt about appetite and pt states, Food doesn't have any taste. Offered milk shake and pt agreed. Requested from dietary with protein addition. Chair alarm in place.
[2018-09-02] MEDS: SODIUM CHLORIDE 0.9% 1,000 ML 50 ML IV (20:59)
[2018-09-02] MEDS: NYSTATIN CREAM 30 GM 1 APPLIC TOP (20:59)
--- NOTE | 2018-09-03 00:10 | PC.NURSE ---
Addendum entered by Oma Gandhi R.N. 09/03/18 05:56: Has been up nearly q2h to urinate for total output of 425cc. Does well with walker and 1 assist to BSC although is weak and needs cueing. Continues to deny pain. Original Note: Patient is alert but oriented only to self and birthday. Speech is clear but delayed and unable to come up with answers to many of the orientation questions. When given choices selects incorrectly. Breath sounds diminished but CTA with RA sat of 97%. HR irregular with rate of 78 bpm. Denies nausea. BT present and had BM on previous shift after receiving glycerin suppository. Has been both continent and incontinent of bladder. Evening RN reports patient able to transfer to BSC with walker and 1 assist. Is now able to turn self in bed. Noted bruising on bilateral UE. Has 3 flat lesions on right side of back and 1 small blister like lesions on left side of back. Denies pain. Remains on dysphagia diet with nectar thick liquids and aspiration precautions are being followed. Remains on contact isolation related to varicella zoster virus in CSF. Fall risk is high at RN discretion due to patient's impulsiveness and confusion; does not remember to call for assistance so bed alarm is activated.
[2018-09-03 02:08] VITALS: BP 134/69; PULSE 102
[2018-09-03] MEDS: dilTIAZem 30 MG TABLET 60 MG PO ×3 (02:08→13:22)
[2018-09-03 03:50] VITALS: BP 127/67; PULSE 84; RESP 28; TEMP 36.6; O2SAT 95
[2018-09-03] MEDS: ASPIRIN EC 81 MG TABLET PO (07:59)
[2018-09-03] MEDS: DEXTROSE 5% IV ×2 (07:59→16:13)
[2018-09-03] MEDS: ACYCLOVIR IV ×2 (07:59→16:13)
[2018-09-03] MEDS: ATORVASTATIN 20 MG TABLET 80 MG PO (07:59)
[2018-09-03] MEDS: WATER IV ×2 (07:59→16:13)
[2018-09-03 08:00] VITALS: BP 144/73; PULSE 115; RESP 18; TEMP 36.2; O2SAT 95
[2018-09-03] MEDS: FUROSEMIDE 20 MG TABLET PO (08:00)
[2018-09-03] MEDS: FLUTICASONE 120 SPRAY/16 GM SPRAY.SUSP NASAL (08:00)
[2018-09-03] MEDS: METOPROLOL IR 25 MG TABLET 75 MG PO (08:00)
[2018-09-03] MEDS: ESCITALOPRAM 10 MG TABLET PO (08:00)
[2018-09-03] MEDS: POLYETHYLENE GLYCOL 3350 17 GM POWD.PACK PO (08:01)
[2018-09-03 08:04] VITALS: O2SAT 96
--- NOTE | 2018-09-03 08:28 | PC.NURSE ---
Addendum entered by Nancy Horne R.N. 09/03/18 15:32: Transfer to SNF: Will d/c with midline IV in place. Report called to Lindsey at [facility]. Transfer packet all ready to go. Report given to oncoming RAMAN Pelayo regarding the same (also encouraged to start IV Acyclovir ALFONZO so patient gets full dose before she leaves). Addendum entered by Nancy Horne R.N. 09/03/18 13:46: Placed on droplet precautions, in addition to contact precautions, per directive from Dr Iniguez (since patient has a couple small blisters on her back). Patient back in bed at this time, informed of plan to transfer to [facility] at 1730 this evening allowing time to complete her 1600 dose of Acyclovir. Given Tylenol for C/O headache and she's hoping to rest for a bit. Call light in reach, bed alarm active. Addendum entered by Nancy Horne R.N. 09/03/18 11:08: Moved patient and all belongings to room 206 for closer observation (r/t impulsiveness and urinary urgency). Resting quietly in chair with eyes closed at this time. No s/sx distress or discomfort. Respirations regular and unlabored. Call light in reach, chair alarm active, door open. Original Note: Shift summary: Awake and alert, oriented to self, birthdate and age. Unable to answer other orientation questions appropriately. Evident trouble with expressive aphasia and she is aware of it also. Difficulty with word-finding- speech is clear with occasional delay in answering. Denies chest pain, cough or shortness of breath. Lungs CTA, dim posterior bases. HR irregularly irregular, 115 bpm prior to getting a.m. doses of Metoprolol, etc. Given pills crushed in pudding, following [employer]ISTR[employer] precautions as posted. No s/sx aspiration noted. Declined breakfast at this time, will offer again shortly. Remains on contact isolation. Able to make needs known and is reported to call appropriately. Call light in reach, bed alarm active.
--- NOTE | 2018-09-03 09:21 | CM.DPC ---
Addendum entered by Meg Weaver LPN 09/03/18 14:07: All is now set up for d/c today. IV dose will be given at 1600 with [facility] van picking pt up at 1730. Vm has been left for Thomas to update him on the d/c details for today. Addendum entered by Meg Weaver LPN 09/03/18 12:36: SNF auth is now received from [facility]: [id number]: for [facility]. Received a vm from [facility] re this and he had also given the information to [facility]. Dr. Iniguez is just updated as well as RAMAN Cruz. Both agree that pt should be ok to do via w/c van as distance to she snf is short. Next IV dose is 1600 and [facility] is looking to see when they will have this received from their pharmacy. Dr. Iniguez is also conferring with pharmacy to see if medication can be given early: just confirmed that it should not be. P: at this point may need to keep pt if the snf cannot get the medication in by 1600. Pt may need to stay on for the midnight and 0800 morning dose and then go at that time in order to facilitate a safe and appropriate d/c plan. [facility] obviously could not have ordered the medication prior to this as d/c orders were not in place and pt was just authed for the stay , an hour ago. Original Note: DCP: continued: Have contacted [facility] this morning. She has reviewed the referral and is working on the insurance auth for an admission today. Litzy/MARIELOS is updated. Will be following closely. Have discussed case now in Team Rounds. Pt will d/c to [facility] when all is set up and authorized, either later today or tomorrow. Will completed PASRR and followup with POA son Thomas./done. If pt does not d/c until tomorrow he will be on [place] but will be available to [facility] by phone.
--- NOTE | 2018-09-03 09:50 | PT.IPTN ---
Current Diagnoses Hyperlipidemia, unspecified (08/29/18) Encephalopathy, unspecified (08/29/18) Essential (primary) hypertension (08/29/18) Cerebral infarction, unspecified (08/29/18) Pulmonary fibrosis, unspecified (08/29/18) Retention of urine, unspecified (08/29/18) Disorientation, unspecified (08/29/18) Altered mental status, unspecified (08/29/18) Physical Therapy Treatment Note M2 PT-IP Current Condition Start: 08/29/18 17:07 Freq: NEEDED Status: Active Protocol: Document 08/29/18 16:00 AB (Rec: 08/29/18 17:27 AB [id number]) Physical Therapy Current Condition Current Condition Evaluation Date 08/29/18 Treatment Diagnosis a-fib; generalized weakness; difficulty in walking Onset Date 08/29/18 Precautions Other Precautions HR M3 PT-IP Subjective Start: 08/29/18 17:07 Freq: NEEDED Status: Active Protocol: Document 09/03/18 09:50 RS (Rec: 09/03/18 14:53 RS [id number]) Subjective Physical Therapy Visit Type Type Treatment Note Visit Start Time 09:20 Visit Stop Time 09:50 Total Visit Minutes 30 Physical Therapy Visit Comments Patient Comments Pt agreeable to PT session. M4 PT-IP Mobility and Gait Start: 08/29/18 17:07 Freq: NEEDED Status: Active Protocol: Document 09/02/18 10:55 RCC (Rec: 09/02/18 11:50 RCC [id number]) PT-Transfer Assessment Sit to and From Stand Sit to and from Stand Contact Guard Assistance 1 Person Assistance Use of Upper Extremities Equipment Transfer Assistive Device Gait Belt Front Wheeled Walker Transfers Transfer Destination Chair Toilet Transfer Technique Stand Step Pivot Transfer Ability Level of Assist Minimal Assistance 1 Person Assistance Use of Upper Extremities Gait Assessment Gait Gait Assistance Required: Contact Guard Assist Distance (Feet) 40 Assistive Devices Assistive Device Gait Belt Front Wheeled Walker Gait Deviations General Gait Pattern Decreased Stride Length Decreased Feet Clearance Wide Based Gait Factors Limiting Gait Function Factors Limiting Gait Function Decreased Activity Tolerance Decreased Strength Poor Balance Poor Safety Awareness Comments Gait Comments chair follow for gait gait x10 ft to BR with OT assist, gait x10 ft in room then required sitting rest break x1 min at bed; then gait x40 ft. O2 96-98% on RA M5 PT-IP Objective Assessments Start: 08/29/18 17:07 Freq: NEEDED Status: Active Protocol: Document 08/29/18 16:00 AB (Rec: 08/29/18 17:27 AB [id number]) Orientation Orientation/Cognition Language Function Ability Expressive Aphasia Receptive Aphasia Word Finding Difficulties Comments unable to verbalize needs and follow directions Gross Range of Motion Lower Extremity ROM Assessment Bilaterally Impaired Impairments increase knee guarding during PROM; able to bend knees with difficulty Strength Lower Extremity Strength Assessment Bilaterally Impaired Hip 3-/5 Knee 3-/5 Muscle Tone Muscle Tone WNL Yes M6 PT-IP Treatment Start: 08/29/18 17:07 Freq: NEEDED Status: Active Protocol: Document 09/03/18 09:50 RS (Rec: 09/03/18 14:53 RS [id number]) Physical Therapy Treatment Exercises Exercises Ankle Pumps Heel Slides Straight Leg Raises Supine Hip Abduction Short Arc Quads M7 PT-IP Assessment and Plan Start: 08/29/18 17:07 Freq: NEEDED Status: Active Protocol: Document 09/03/18 09:50 RS (Rec: 09/03/18 14:53 RS [id number]) PT Summary Assessment and Plan Potential Rehabilitation Potential Good Status of Condition at Evaluation Stable Summary Impairments Pain ROM Strength Balance Coordination Sensation Tone Cognition Bed Mobility Transfers Gait Activity Tolerance Progress Towards Goals Slow Progress due to Medical Issues Slow Progress due to Activity Tolerance Slow Progress - Other Assessment Summary Pt declined OOB mobility but agreeable to BLE strengthening exercises in bed. Pt able to complete with cues for each rep. Still far below reported functional baseline, continue to recommend pt transition to SNF rehab once medically ready . Pt will be discharging to [facility] later today, will sign off . Frequency of Treatment Frequency Of Treatment Discharge Recommendations To Nursing Amount of Assist Needed 1 Person Assist 2 Person Assist Discharge Recommendations PT Discharge Recommendations SNF Rehab
--- NOTE | 2018-09-03 11:08 | ST.IPTN ---
Care Team Visit Care Team Role Provider Type Carissa Chen MD Primary Care Provider Physician Address: [address] [place] [address], [facility] Madelyn Dias MD Emergency Provider Physician Address: [address] [place] [address], [id number] Mame Ardon MD Admit Provider Physician Attending Provider Address: [address] [place] [address], [facility] SLAG SKIMMER Treatment Note SLAG SKIMMER Clinical Instructor Line Start: 08/30/18 17:51 Freq: Status: Active Protocol: Document 08/30/18 17:51 LNK (Rec: 08/30/18 17:52 LNK [id number]) Clinical Instructor Signature Clinical Instructor Clinical Instructor Yes: Denisha Rod, PhD , [facility] SLAG SKIMMER Treatment Note Start: 08/29/18 16:13 Freq: Status: Active Protocol: Document 09/03/18 10:37 BETSEY (Rec: 09/03/18 10:54 BETSEY [id number]) Speech Pathology Treatment Note Session Time Visit Start Time 09:00 Visit Stop Time 09:20 Total Visit Minutes 20 Setting Treatment Setting Acute Care Visit Type Note Type Treatment Note Next Note Type Next Note Type Treatment Note General Information General Information The patient is an 82-year-old female with a history of atrial fibrillation on Coumadin, hyperlipidemia, hypertension chronic pain, and pulmonary fibrosis who was brought in for complaints of confusion. The patient has expressive aphasia and is unable to provide any further history. According to the reports from the ED the patient has been not feeling well for the past few days. She was noted to be confused. The patient is awake and alert but unable to provide any further history. She has expressive aphasia. She has difficulty getting words out. At time she can answer appropriately. Subjective Observations/Patient Presentation Per BELTING CUTTER, pt is much more alert and, although still confused, not nearly as confused as last week. Oral consumption continues to be low. Pt was sitting up in bed, awake, and appropriately greeted SLAG SKIMMER upon arrival. When asked about food consumption, she reported she hasn't been eating much because I'm not hungry. She denied difficulty eating and swallowing. Stated she's very thirsty. When asked if she is able to tell people what she needs to, she responded, I find that to be difficult. Chief Complaint(s) Language Swallowing Cognitive Patient Knowledge/Awareness of SLAG SKIMMER Role Fair in Treatment Objective Short Term Goals Pt will follow single step directions consistently to increase ability to participate in functional tasks. Pt will consistently answer yes/no questions appropriately to increase functional communication abilities. Pt will follow general aspiration precautions to reduce risk of aspiration. Doll Wig Maker Goals Pt will follow verbal commands to participate successfully in functional tasks. Pt will effectively communicate her wants/needs. Pt will tolerate least restrictive diet to meet her nutrition/hydration needs. Treatment Activities Dysphagia: The pt tolerated sips of NTL x2 and thin liquids x3 single cup sips, self-administered, without overt s/sx of aspiration. Trials were discontinued d/t pt need to use commode. Expressive/Receptive Language: The pt participated in conversation mostly appropriately but with slow processing time and with occasional confusion, particularly after long pauses between questions and responses. She benefited from repetition of questions to reduce confusion and maintain attention to topic. Speech was 100% intelligible. She was able to follow simple 1-step commands. Commands of greater complexity were not trialed. Assessment Patient Response to Treatment Good Rehab Potential Fair Impairments Identified Attention Auditory Processing Cognitive-Linguistic Skills Dysphagia Expressive Language Memory - Short Term Receptive Language Progress Towards Goals Slow Progress Assessment of Overall Progress Improving Assessment of Improvement The pt exhibited no overt s/sx of aspiration with thin liquid trials, maintaining clear voice and no indication of impaired coordination of swallow with limited trials. She may be appropriate for upgrade to thin liquid; however, advancement not made at this time for pt safety d/t limited assessment opportunity. Will continue trials and evaluation over course of hospital stay. Recommend continuing dysphagia mechanical diet, NTL, meds as tolerated in carrier. The pt appears able to communicate basic wants/needs, though exhibits difficulty expressing ideas of greater length/complexity. Language continues to be intermittently confused. The pt benefits from simple statements/ questions targeting a single topic at a time in simple sentences, and from repetition of questions when processing time extends >10 sec. Keep commands to 1-step. Reviewed with Patient Goals Progress Being Made Patient/Caregiver Understanding Fair Plan Therapeutic Contents Auditory Comprehension AAC Cognitive-Linguistic Training Expressive Language Training Provided Patient/Caregiver Instruction Plan of Care Questions/Concerns Therapy Recommendations Continue with Current Program Comment Discharge to SNF with continued SLAG SKIMMER services
[2018-09-03 12:00] VITALS: BP 141/94; PULSE 100
--- NOTE | 2018-09-03 13:01 | PM.DS.1 ---
History of Present Illness Date Patient Seen: 08/29/18 Chief complaint: Not being normal narthargic Narrative: Written by Dr. Ardon: The patient is an 82-year-old female with a history of atrial fibrillation on Coumadin, hyperlipidemia, hypertension chronic pain, and pulmonary fibrosis who was brought in for complaints of confusion. The patient has expressive aphasia and is unable to provide any further history. According to the reports from the ED the patient has been not feeling well for the past few days. She was noted to be confused. She has known atrial fibrillation. She was found to have a rapid ventricular response rate in the emergency department. The patient is awake and alert but unable to provide any further history. She has expressive aphasia. She has difficulty getting words out. At time she can answer appropriate. Patient was evaluated in the emergency room. Her white count was normal. Her electrolytes were normal. Head CT initially obtained was normal as well. She is admitted to the hospital for further evaluation. Discharge Providers Date of admission: 08/29/18 12:02 Discharge Date: 09/03/18 Primary care physician: Carissa Chen MD Consults: 08/29/18 14:07 Consult to Discharge Planning Routine Comment: Consult to Occupational Therapy Evaluate & Treat Comment: Physician Instructions: Evaluate and treat Consult to Physical Therapy Evaluate & Treat Comment: Physician Instructions: Evaluate and Treat Consult to Speech Therapy Evaluate & Treat Comment: Physician Instructions: Evaluate and treat Discharge provider: Janell Iniguez DO Summary Discharge Diagnosis: 1. Acute varicella zoster encephalitis, present on admission. Resolving. 2. Acute hyponatremia, present on admission. Stable. 3. Paroxysmal atrial fibrillation, chronic, present on admission. 4. Hypertension, chronic, present on admission. Stable. 5. Hyperlipidemia, chronic, present on admission. Stable. 6. Systolic congestive heart failure, present on admission. Stable. 7. Depression, chronic, present on admission. Stable. 8. GERD, chronic, present on admission. Stable. 9. Chronic pain, present on admission. Stable. Hospital Course: Tali Burton is an 82-year-old female with a past medical history significant for atrial fibrillation on Coumadin, hyperlipidemia, hypertension chronic pain, and pulmonary fibrosis who was brought in for complaints of confusion and found to varicella zoster encephalitis. 1. Acute varicella zoster encephalitis, present on admission. Resolving. -Patient presented with confusion and expressive aphasia. -Patient was intermittently confused with occasional lucid moments. She continues to have expressive and receptive aphasia. -CT brain without contrast and MR stroke protocol did not demonstrate CVA, significant stenoses or any intracranial abnormalities. -Lumbar puncture viral PCR positive for VZV. Unclear patient has had shingles vaccine as she told previous provider she had received it and today she told me she has not received it. -Continued acyclovir 700 mg every 8 hours for 14 days total. Dose has been adjusted to ideal body weight as patient is slightly obese. Continued to monitor creatinine closely. 2. Acute hyponatremia, present on admission. Stable. -Likely secondary to acute [employer] infection. -Sodium level stable at 129. Continued to monitor sodium level closely. 3. Paroxysmal atrial fibrillation with RVR, chronic, present on admission. RVR resolved. -Patient presented with atrial fibrillation with RVR. Rate now conrtrolled. -Switched long acting diltiazem CD 1 80 mg daily to diltiazem IR 60 mg every 6 hours (as medications need to be crushed per ST). Continued metoprolol succinate 50 mg daily. -Continued home warfarin schedule and monitored INR closely. Last INR is 2.2. 4. Hypertension, chronic, present on admission. Stable. -Continued diltiazem 180 mg daily, furosemide 20 mg daily, and metoprolol succinate 50 mg daily. 5. Hyperlipidemia, chronic, present on admission. Stable. -Continued aspirin 81 mg daily and atorvastatin 80 mg daily at bedtime. 6. Systolic congestive heart failure, present on admission. Stable. -Does not represent an acute heart failure exacerbation. -Continued home furosemide 20 mg daily. 7. Depression, chronic, present on admission. Stable. -Continued escitalopram 10 mg daily and doxepin 100 mg daily at bedtime. 8. GERD, chronic, present on admission. Stable. -Held PPI. 9. Chronic pain, present on admission. Stable. -Continued gabapentin 300 mg twice daily and 900 mg daily at bedtime. Status at Discharge Functional status at discharge: uses cane/walker Overall status at discharge: patient is progressing back to baseline Exam Vital Signs (past 8 hours): - 09/03/18 08:00 09/03/18 08:04 09/03/18 12:00 Temperature 97.1 F L Pulse Rate 115 H 100 H Respiratory Rate 18 Blood Pressure 144/73 H 141/94 H Pulse Oximetry 95 96 Fraction of Inspired Oxygen 24 Oxygen Delivery Method Room Air Oxygen Flow Rate 0 Narrative Exam Narrative: General: Elderly female sitting in bedside chair and in no acute distress, well-developed, well-nourished, intermittently confused with slow mentation. HEENT: Normocephalic, atraumatic. External ears without defect. Pupils equal, round, and reactive to light. Anicteric sclerae, moist conjunctivae, and no lid lag. Neck: Supple with full range of motion. No jugular venous distension. No lymphadenopathy or thyromegaly. Cardiovascular: Irregularly irregular without murmurs, rubs, or gallops appreciated. Pulmonary: Clear to auscultation bilaterally without crackles, wheezes, or rhonchi. Normal respiratory effort with no use of accessory muscles. Abdomen: Soft, bowel sounds present, nontender, nondistended. No hepatosplenomegaly or masses appreciated. Extremities: No clubbing, cyanosis, or edema. Skin: Normal temperature, turgor, and texture; no ulcers, or subcutaneous nodules appreciated. Two small scabs on back bilaterally that could possibly represent shingles?? Neurological: Cranial nerves grossly intact. Psychiatric: Intermittent confusion, slow mentation, with interval moments of clarity/lucidity. Objective Labs Result Diagrams: 09/01/18 05:00 09/01/18 05:00 Discharge Plan Discharge Plan Patient Disposition: SNF Transfer to: [facility] I certify the postop hospital group home care is medically necessary on a continuing basis for any conditions for which he/ she received care during this hospitalization.: Yes The receiving facility has agreed to accept transfer and provide medical treatment.: Yes Discharge Med Rec/Prescriptions Prescriptions: New acyclovir sodium 500 mg Recon Soln 700 mg IV Q8H Qty: 32 RF: 0 diltiazem HCl 30 mg Tablet 60 mg PO Q6H Qty: 120 RF: 0 Continued atorvastatin 80 mg Tablet 80 mg PO DAILY RF: 0 gabapentin 300 mg Capsule 300 mg PO BID RF: 0 Prilosec OTC 20 mg Tablet,Delayed Release (Dr/Ec) 20 mg PO DAILY RF: 0 metoprolol succinate 50 mg tablet extended release 24 hr 50 mg PO DAILY RF: 0 aspirin 81 mg Tablet,Delayed Release (Dr/Ec) 81 mg PO DAILY RF: 0 gabapentin 300 mg Capsule 600 mg PO BEDTIME RF: 0 warfarin 5 mg Tablet 5 mg PO DAILY RF: 0 furosemide 20 mg Tablet 20 mg PO DAILY RF: 0 Amitiza 24 mcg Capsule 24 mcg PO DAILY RF: 0 doxepin 100 mg Capsule 100 mg PO BEDTIME RF: 0 escitalopram oxalate 10 mg Tablet 10 mg PO DAILY RF: 0 Discontinued diltiazem HCl [DILT-XR] 180 mg Capsule,Ext.Rel 24h Degradable 180 mg PO DAILY RF: 0 Follow up/Referrals: Craissa Chen MD [Primary Care Provider] - Discharge Health Status Brief summary of current health status: 82-year-old female with a past medical history significant for atrial fibrillation on Coumadin, hyperlipidemia, hypertension chronic pain, and pulmonary fibrosis who was brought in for complaints of confusion and found to varicella zoster encephalitis. She is completing course of acyclovir 700 mg IV every 8 hours for 14 days (currently on day #4 and has had two doses today and is due for the 3rd tonight). She will need continued physical rehabilitation with PT/OT/ST. Multidrug resistant organism: No MDRO Precautions: Contact and Droplet Provider Discharge Instructions Diet: Low-fat, Low-sodium and Low-cholesterol Liquid consistency: [place] Consistency Diet comment: Dysphagia mechanical with nectar thick liquids and advance per ST Activity: Activity as tolerated with FWW and assistance Special Rehabilitation Services Rehab type: Physical therapy, Occupational therapy and Speech therapy Discharge Data Primary Care Provider: Carissa Chen Attending Provider: Mame Ardon Admit Date/Time: 08/29/18 12:02 Quality VTE Deep Vein Thrombosis/Pulmonary Embolism Present on Admission: No
--- NOTE | 2018-09-03 13:13 | OT.IP.TRT ---
Current Diagnoses Hyperlipidemia, unspecified (08/29/18) Encephalopathy, unspecified (08/29/18) Essential (primary) hypertension (08/29/18) Cerebral infarction, unspecified (08/29/18) Pulmonary fibrosis, unspecified (08/29/18) Retention of urine, unspecified (08/29/18) Disorientation, unspecified (08/29/18) Altered mental status, unspecified (08/29/18) Occupational Therapy Treatment Note M2 OT-IP Current Condition Start: 08/30/18 11:05 Freq: Status: Active Protocol: Document 08/30/18 11:06 [facility] (Rec: 08/30/18 11:36 [facility] [email or web address]) Occupational Therapy Current Condition Current Condition Evaluation Date 08/30/18 Treatment Diagnosis Confusion/aphasia Post Operative Precautions Other Precautions Pt with HR of 120-140 in bed at time of eval. No OOB activity. M3 OT- IP Subjective and Pain Start: 08/30/18 11:05 Freq: Status: Active Protocol: Document 09/03/18 13:01 [facility] (Rec: 09/03/18 13:13 [facility] [email or web address]) OT- Subjective Occupational Therapy Visit Type Type Treatment Note Visit Start Time 11:55 Visit Stop Time 12:25 Total Visit Minutes 30 Occupational Therapy Visit Comments Patient Comments Pt trying to get up from the recliner. Pt needing to use the BSC when asked. OT Pain Assessment Pain When Pain Assessed At Rest Pain Present Pain Present Pain Reported Location Head Pain Behaviors Facial Grimacing Holding Area M4 OT- IP ADL's Start: 08/30/18 11:05 Freq: Status: Active Protocol: Document 09/03/18 13:01 [facility] (Rec: 09/03/18 13:13 [facility] [email or web address]) OT RKG-Xtod-Xymdldf General Evaluation Areas Needing Assistance Opening Containers Comments OT Self-Feeding Comments Pt not wanting to eat and only wanting to drink her nectar thick liquid juice. OT ADL-Grooming General Evaluation Areas Needing Assistance Retrieving/Set-up of Grooming Items Comments OT Grooming Comments Pt able to wash her face,brush her hair after set-up assist. OT ADL-Oral Care General Eval Oral Care Ability Standby Assistance Comments Oral Care Comments Set-up assist, pt able to stand with FWW at the sink for all needs for oral care needs . OT ADL-Toileting General Evaluation Toileting Ability Contact Guard Assistance Areas Needing Assistance Manage Clothing Comments OT Toileting Comments CGA for balance while standing with FWW and able to do own toileting and brief management needs. M5 OT- IP IADL's Start: 08/30/18 11:05 Freq: Status: Active Protocol: Document 08/30/18 11:06 [facility] (Rec: 08/30/18 11:36 [facility] [email or web address]) OT-Instrumental Activities of Daily Living Deficits IADL Deficits Identified Deficits Home Safety Awareness Awareness of Need for Assistance at Home Decreased Awareness Ability to Problem Solve Emergency Unable to Problem Solve Situations Medication Management Medication Management Comments Unable to perform at this time . Money Management Money Management Comments Unable to perform at this time . Meal Preparation Meal Preparation Comments Unable to perform at this time . Ambulance Officer Ambulance Officer Comments Unable to perform at this time . Driving Driving Comments Unable to perform at this time . M6 OT- IP Functional Cognition Start: 08/30/18 11:05 Freq: Status: Active Protocol: Document 09/03/18 13:01 [facility] (Rec: 09/03/18 13:13 [facility] [email or web address]) Cognitive Factors Limiting Selfcare Function Cognitive Ability Level of Alertness Alert Confusional State Patient Orientation Name Attention Span Ability Capable of Focused Attention Ability to Follow Commands Able to Follow One Step Commands Cognitive Comments Cognitive Assessment Comments Pt more consistent with yes/no questions, able to follow conversation better today and able to ask appropriate question to the doctor today. M7 OT- IP Mobility and Balance Start: 08/30/18 11:05 Freq: Status: Active Protocol: Document 09/03/18 13:01 [facility] (Rec: 09/03/18 13:13 [facility] [email or web address]) OT-Transfer Assessment Sit to and From Stand Sit to and from Stand Contact Guard Assistance Transfers Transfer Ability Contact Guard Assistance Technique Transfer Destination Bed Bedside Commode Devices Transfer Assistive Devices Gait Belt Front Wheeled Walker Comments Mobility Comments ABle to transfer to BSc and walk to the sink with CGA and assist to monitor IV pole. OT- Balance Assessment Sitting Balance and Reactions Static Sitting Balance Ability Normal Dynamic Sitting Balance Ability Normal Standing Balance and Reactions Static Standing Balance Ability Good M8 OT- IP Objective Assessments Start: 08/30/18 11:05 Freq: Status: Active Protocol: Document 08/30/18 11:06 [facility] (Rec: 08/30/18 11:36 [facility] [email or web address]) OT Gross Range of Motion Upper Extremity Range of Motion Assessment Within Functional Limits ROM Impairments PROM performed, pt unable to follow commands for AROM OT Strength Upper Extremity Strength Assessment Within Functional Limits Comments Strength Comments No noted weakness with pt's natural movements of BUE. Pt was unable to follow commands to perform. OT- Coordination Assessment Comments Coordination Comments Unable to test. OT-Muscle Tone Assessment Muscle Tone WNL Yes OT Sensation Assessment Comments Summary Comments Unable to assess but pt does have feeling to BUE noted with testing. Edema Edema Absent M9 OT- IP Assessment and Plan Start: 08/30/18 11:05 Freq: Status: Active Protocol: Document 09/03/18 13:01 [facility] (Rec: 09/03/18 13:13 [facility] [email or web address]) OT Summary Assessment and Plan Potential Rehabilitation Potential Excellent Summary OT Impairments Coordination Functional Cognition Functional Mobility Self-Feeding Grooming Dressing Toileting Bathing Toilet Transfers Shower Transfers Progress Towards Goals Progressing Toward Goals Assessment Summary Pt doing better with yes/no consistency and able to ask question to the doctor today appropriately, pt still needing one person assist for al Adl and functional mobility needs. Frequency of Treatment Frequency Of Treatment Once a Day Treatment Plan OT Treatment Plan ADL Training Functional Cognition Training Functional Mobility IADL Training Therapeutic Exercises Patient/Family Education Discharge Planning Discharge Recommendations OT Discharge Recommendations SNF Rehab
[2018-09-03] MEDS: ACETAMINOPHEN 325 MG TABLET 650 MG PO (13:22)
[2018-09-03 15:20] VITALS: BP 144/74; PULSE 79; RESP 18; TEMP 36.2; O2SAT 93
--- NOTE | 2018-09-03 17:51 | PC.NURSE ---
Discharge Note Pt A&Ox2, reminded that she would be leaving to [facility] this afternoon for continued antibiotic treatment. Pt agreeable, VSS, RA, no complaints of pain or discomfort. Report given to [facility] RN by day shift RN, all questions/concerns addressed. Acyclovir antibiotic administrated and completed before departure. Pt left floor at approximately 1730 via wheelchair with belongings and discharge packet given to [facility] staff.
[2018-09-06 19:32] LABS: Methylmalonic Acid 252 nmol/L (87-318)
--- NOTE | 2018-09-17 07:51 | PC.NURSE ---
Personal belonging bag found on 09/17/18 at main nurses station with patients belongings. Patient was discharged on 09/03 to [facility]. This RN called [facility] and was told patient is still at [facility]. Clothing and patients purse was in the bag. Patient had a cell phone, keys and her wallet in the purse. Wallet had $40 in daly, drivers license, [employer] debit card,and a [employer] card. Also various insurance cards. Belongings were inventoried and taken to [facility] by Jessica Fry, given and inventoried with a staff member named Nithin. Valuables sheet signed.
== END 2018-09-03 17:30 | DRG 74 ==
LOC: ED 08:44 → AC 12:02
PROVIDERS: Family Medicine; Admitting Provider Internal Medicine; Emergency Provider Emergency Medicine; PCP Internal Medicine; Visit Provider Internal Medicine
DX: B02.0 Zoster encephalitis (principal); G93.49 Other encephalopathy; E87.1 Hypo-osmolality and hyponatremia; I50.22 Chronic systolic (congestive) heart failure; I48.0 Paroxysmal atrial fibrillation; I11.0 Hypertensive heart disease with heart failure; I69.920 Aphasia following unspecified cerebrovascular disease; F32.9 Major depressive disorder, single episode, unspecified; E78.5 Hyperlipidemia, unspecified; Z87.891 Personal history of nicotine dependence; Z79.01 Long term (current) use of anticoagulants; G89.29 Other chronic pain
CPT/HCPCS: 36415; 36430; 36591; 70450; 70548; 70553; 71045; 80048; 80053; 81001; 82550; 82607; 82945; 83605; 83880; 83921; 84145; 84157; 84443; 84484; 85025; 85610; 86592; 86900; 86901; 86927; 87040; 87070; 87077; 87086; 87147; 87150; 87205; 87633; 87798; 89051; 92507; 92526; 92610; 93005; 93041; 94760; 96105; 96361; 96374; 96376; 97110; 97116; 97162; 97167; 97530; 97535; 99285; P9016; J0696; J1642

== ENCOUNTER → 2018-10-08 07:22 | Outpatient (ROUT) | payer MEDICARE, SELFPAY ==
[2018-08-29 12:56] VITALS: BMI 34.5
[2018-10-08 07:56] LABS: INR 2.7 (0.9-1.3); Prothrombin Time 31.5 SECONDS (10.1-12.7)
== END ==
PROVIDERS: PCP Internal Medicine; Visit Provider Nurse Practitioner Family
DX: I48.91 Unspecified atrial fibrillation (principal)
CPT/HCPCS: 36415; 85610

== ENCOUNTER 2018-10-10 16:34 | Inpatient (IN) | payer MEDICARE, SELFPAY ==
[2018-08-29 12:56] VITALS: BMI 34.5
[2018-10-10 16:30] VITALS: BP 99/56; PULSE 75; RESP 18; TEMP 36.6; O2SAT 99
--- NOTE | 2018-10-10 16:48 | DI.RAD.S_ITS ---
PROCEDURE: XR ANKLE RT MIN 3V INDICATIONS: injury TECHNIQUE: 3 views of the ankle were acquired. COMPARISON: None. FINDINGS: Bones: Acute oblique fracture through the distal fibular shaft is seen with anterior and lateral displacement at fracture site. Acute fracture involving medial malleolus is seen with lateral displacement of the fractured fragment. Complete disruption of ankle mortise is seen. There is also suggestion of subtle nondisplaced fracture involving lateral aspect of posterior malleolus extending to the tibiotalar joint space. Soft tissues: No tibiotalar joint effusion. Achilles tendon appears normal. Soft tissue swelling around ankle joint is seen. IMPRESSION: Suggestion of acute trimalleolar fracture with complete disruption of ankle mortise as above. Dictated by: Kraig Landry M.D. on 10/10/2018 at 17:13 Approved by: Kraig Landry M.D. on 10/10/2018 at 17:15
--- NOTE | 2018-10-10 16:52 | ED.FALL ---
HPI - Fall General Chief Complaint: Fall Stated Complaint: Fall Time Seen by Provider: 10/10/18 16:34 Source: patient and EMS Mode of arrival: EMS Limitations: no limitations History of Present Illness HPI Narrative: Patient is brought to the emergency department by EMS after twisting her ankle and falling. Patient states she was walking with her walker, when she slipped and twisted her right ankle. Patient states that she did not fall all the way to the ground, and mainly is having pain in the ankle itself. She did not hit her head or lose consciousness. No spinal pain or injury. She did not fall on her hips. No other complaints at this time. Related Data Home Medications Medication Instructions Recorded Confirmed atorvastatin 80 mg PO QPM 08/07/17 10/10/18 gabapentin 300 mg PO BID 08/07/17 10/10/18 Amitiza 24 mcg PO DAILY 12/07/17 10/10/18 furosemide 20 mg PO DAILY 12/07/17 10/10/18 warfarin 5 mg PO QPM 12/07/17 10/10/18 aspirin 81 mg PO DAILY 12/26/17 10/10/18 metoprolol succinate 50 mg PO DAILY 12/26/17 10/10/18 doxepin 100 mg PO BEDTIME 01/23/18 10/10/18 acetaminophen 650 mg PO Q6H PRN 10/10/18 10/10/18 diltiazem HCl 180 mg PO DAILY 10/10/18 10/10/18 escitalopram oxalate 20 mg PO DAILY 10/10/18 10/10/18 gabapentin 600 mg PO BEDTIME 10/10/18 10/10/18 naproxen sodium 220 - 440 mg PO Q8H PRN 10/10/18 10/10/18 nystatin 1 applic TOPICAL BID 10/10/18 10/10/18 omeprazole 20 mg PO DAILY 10/10/18 10/10/18 potassium chloride 10 meq PO QPM 10/10/18 10/10/18 Allergies Allergy/AdvReac Type Severity Reaction Status Date / Time Sulfa (Sulfonamide Allergy Intermediate Rash Verified 08/29/18 09:04 Antibiotics) Review of Systems Constitutional Denies chills, Denies fever(s), Denies lethargy and Denies weakness Eyes Denies change in vision, Denies eye discharge, Denies irritation and Denies loss of vision ENT Ears, Nose, Mouth, and Throat: Denies change in voice, Denies neck pain and Denies sore throat Cardiovascular Denies chest pain, Denies irregular heart rhythm, Denies lightheadedness, Denies palpitations, Denies dyspnea, Denies dyspnea on exertion and Denies orthopnea Respiratory Denies cough, Denies dyspnea, Denies dyspnea on exertion and Denies wheezing Gastrointestinal Gastrointestinal: Denies abdominal pain, Denies change in bowel habits, Denies diarrhea, Denies nausea and Denies vomiting Genitourinary Denies hematuria, Denies flank pain, Denies urinary incontinence and Denies urinary urgency Musculoskeletal Denies neck pain Comments: Right ankle pain and swelling Integumentary/Breasts Denies pruritus, Denies erythema, Denies rash and Denies wounds Neurologic Denies confusion, Denies loss of vision and Denies weakness Psychiatric Denies anxiety, Denies confusion, Denies depression, Denies homicidal ideation and Denies suicidal ideation Endocrine Denies palpitations Hematologic/Lymphatic Denies easy bruising Allergic/Immunologic Denies wheezing Exam Initial Vital Signs Initial Vital Signs: Vital Signs Temperature 98 F 10/10/18 16:30 Pulse Rate 75 10/10/18 16:30 Respiratory Rate 18 10/10/18 16:30 Blood Pressure 99/56 L 10/10/18 16:30 Pulse Oximetry 99 10/10/18 16:30 Const General: cooperative and well developed Nutritional Appearance: well nourished Orientation: alert, awake, oriented x3 and not confused [facility] Head: normocephalic and atraumatic Ears: external ears normal Nose: external nose normal and No nasal discharge Face and sinus: face symmetric and No dry mucous membranes Mouth: oral mucosae normal and moist mucous membranes Teeth and gingiva: dentition normal Eyes General: appearance normal, both eyes and all related structures Eyelids: eyelids normal Conjunctivae: conjunctivae normal Sclera: sclerae normal Pupils: PERRL EOM: EOM intact bilaterally Neck Neck: normal visual inspection, trachea midline, No lymphadenopathy, No midline deformity and No JVD Lymphatic: No lymphedema Chest Chest: normal inspection of the chest Resp Effort & Inspection: normal respiratory effort, able to speak in complete sentences, no respiratory distress and no use of accessory muscles Auscultation: clear to auscultation bilaterally, no rales, no rhonchi and no wheezes Cardio Rate: regular rate Rhythm: regular rhythm Heart Sounds: no click, no gallops, no murmurs and no rubs Pulses: normal peripheral pulses GI Inspection: non-distended Palpation: soft, no hepatosplenomegaly, No guarding, No pulsatile mass and No tender Auscultation: normal bowel sounds Back/Spine/Pelvis Back: No CVA tenderness Cervical Spine: cervical ROM normal and No pain with cervical ROM Thoracic/Lumbar Spine: thoracic and lumbar spine normal to inspection Skin General: no rashes or lesions noted, No jaundice and No petechiae Neuro General: alert, oriented x3, gait normal and no focal motor deficits Speech: speech normal Extrem General: no pedal edema and no calf tenderness Right lower extremity: edema (Moderate, right ankle) Details: non-pitting and ankle Details: tenderness (Moderate, medially), swelling and ecchymosis (Small, medial) Psych Appearance: well kempt Mental Status: mental status grossly normal Attitude: cooperative Thought Content: normal and suicidality Judgment: judgment good [facility] Medical History Impaired fasting glucose (Acute) Stroke (Acute) Hyperlipidemia (Acute) Hypertension (Acute) Chronic pain (Acute) Pulmonary fibrosis (Acute) Surgical History No pertinent past surgical history (Acute) Social History details: two years ago number of children: 2 household members: none lives independently: Yes caregiver/support person: Yes housing: apartment other: Denies alcohol drinking or cigarette smoking. Her son of overdose 1 w Smoking Status: Former smoker Social History details: two years ago number of children: 2 household members: none lives independently: Yes caregiver/support person: Yes housing: apartment other: Denies alcohol drinking or cigarette smoking. Her son of overdose 1 w Smoking Status: Former smoker Procedures Orthopedic Splinting/Casting Injury #1: Side: right Lower Extremity Injury Location: ankle Lower Extremity Immobilizer: posterior splint and stirrup splint Post splinting neuro exam: intact Post splinting vascular exam: intact Placed by: Nursing (Under my direct supervision while reducing.) Additional Comments: Pressure was applied to patient's medial tibia and lateral calcaneus and talus to achieve better positioning of the ankle mortise. Course Course Narrative: Patient was given an ice pack in the emergency department and worked up with x-ray series of her right ankle, which showed a trimalleolar fracture with complete mortise disruption. I spoke with Dr. Pierre, who viewed the x-rays and stated the patient would need surgery and he would like to get it done tomorrow. He requested that the patient be admitted to Internal Medicine, secondary to her comorbidities, including AFib with anticoagulation. I spoke with Dr. Iniguez, who agreed to admit the patient to her service. Preoperative labs were obtained, and showed an INR 3.4 and a normal H&H. The patient was splinted in the emergency department, and per Dr. leiva request, pressure was applied to the patient's medial tibia and calcaneus and talus to try to shift the mortise into a better position. The patient was neurovascularly intact throughout her stay in the emergency department. She was informed of her need of admission and surgical repair. Orders Ordered: ED Orders 10/10/18 16:48 XR ankle RT min 3V Stat 10/10/18 18:19 Complete Blood Count AUTO DIFF Stat Comprehensive Metabolic Panel Stat Prothrombin Time INR Stat Type and Screen Stat 10/10/18 18:56 XR chest 1V Stat EKG-12 Lead Stat Sodium Chloride (Normal Saline 0.9%) 1,000 mls @ 150 mls/hr IV CONT JACQUELINE Last Admin: 10/10/18 18:29 Dose: 150 mls/hr Discontinued Medications Hydromorphone HCl (Dilaudid) 1 mg IV NOW ONE Stop: 10/10/18 18:12 Last Admin: 10/10/18 18:28 Dose: 1 mg Vital Signs - 8 hr 10/10/18 16:30 Temperature 98 F Pulse Rate 75 Respiratory Rate 18 Blood Pressure 99/56 L Pulse Oximetry 99 MDM - Fall Medical Records Attestation: I reviewed the patient's medical records. Lab Data Attestation: I reviewed the patient's lab results. Result diagrams: 10/10/18 18:19 10/10/18 18:19 Lab Results 10/10/18 10/10/18 10/10/18 Range/Units 18:19 18:19 18:19 WBC 15.2 H (4.5-11.0) X10^3/uL RBC 4.61 (4.0-5.2) X10^6/uL Hgb 13.8 (12.0-16.0) g/dL Hct 41.7 (36-46) % MCV 90.3 (80-100) fL MCH 30.0 (26-34) PG MCHC 33.2 (30-36) % RDW 18.0 H (11.6-14.8) % Plt Count 357 (150-400) X10^3/uL Neut % (Auto) 75.1 H (50-75) % Lymph % (Auto) 15.8 L (25-40) % Sac % (Auto) 6.5 (3-14) % Eos % (Auto) 2.0 (2-4) % Baso % (Auto) 0.6 (0-2) % Neut # (Auto) 01642 H (8486-2353) /uL Lymph # (Auto) 2400 (6527-4635) /uL Sac # (Auto) 1000 H (0-900) /uL Eos # (Auto) 300 (0-450) /uL Baso # (Auto) 100 (0-100) /uL PT 40.0 H D (10.1-12.7) SECONDS INR 3.4 H (0.9-1.3) Sodium 137 (137-145) mmol/L Potassium 4.7 (3.4-5.1) mmol/L Chloride 100 (98-107) mmol/L Carbon Dioxide 27 (22-32) mmol/L BUN 9 (7-17) mg/dL Creatinine 1.00 (0.52-1.04) mg/dL Estimated GFR 53.2 L (>60) mL/min BUN/Creatinine Ratio 9.0 (6-22) Glucose 113 H (80-110) mg/dL Calcium 10.2 (8.4-10.2) mg/dL Total Bilirubin 0.9 (0.2-1.3) mg/dL AST 29 (14-36) IU/L ALT 16 (9-52) IU/L Alkaline Phosphatase 122 (38-126) U/L Total Protein 8.1 (6.3-8.2) g/dL Albumin 4.4 (3.5-5.0) g/dL Globulin 3.7 (1.7-4.1) g/dL Albumin/Globulin Ratio 1.2 (1.0-2.8) Imaging Data Right ankle x-ray: Radiologist's impression: [address] [address] XRay Report Signed Patient: Tali Burton JMR#: [id number] : 8Acct:[id number] Age/Sex: 83 / FDate of Service: 10/10/18 Loc: ED Accession Number: [id number] Procedure: XR ankle RT min 3V Ordering Provider: Madelyn Dias MD PROCEDURE: XR ANKLE RT MIN 3V INDICATIONS: injury TECHNIQUE: 3 views of the ankle were acquired. COMPARISON: None. FINDINGS: Bones: Acute oblique fracture through the distal fibular shaft is seen with anterior and lateral displacement at fracture site. Acute fracture involving medial malleolus is seen with lateral displacement of the fractured fragment. Complete disruption of ankle mortise is seen. There is also suggestion of subtle nondisplaced fracture involving lateral aspect of posterior malleolus extending to the tibiotalar joint space. Soft tissues: No tibiotalar joint effusion. Achilles tendon appears normal. Soft tissue swelling around ankle joint is seen. IMPRESSION: Suggestion of acute trimalleolar fracture with complete disruption of ankle mortise as above. Dictated by: Kraig Landry M.D. on 10/10/2018 at 17:13 Approved by: Kraig Landry M.D. on 10/10/2018 at 17:15 Discharge Plan Departure Patient Disposition: Admitted As Inpatient Clinical Impression: Ankle fracture Qualifiers: Encounter type: initial encounter Fracture type: closed Laterality: right Qualified Code(s): S82.891A - Other fracture of right lower leg, initial encounter for closed fracture
--- NOTE | 2018-10-10 16:57 | ED_ITS ---
HPI - Fall General Chief Complaint: Fall Stated Complaint: Fall Time Seen by Provider: 10/10/18 16:34 Source: patient and EMS Mode of arrival: EMS Limitations: no limitations History of Present Illness HPI Narrative: Patient is brought to the emergency department by EMS after twisting her ankle and falling. Patient states she was walking with her walker, when she slipped and twisted her right ankle. Patient states that she did not fall all the way to the ground, and mainly is having pain in the ankle itself. She did not hit her head or lose consciousness. No spinal pain or injury. She did not fall on her hips. No other complaints at this time. Related Data Home Medications Medication Instructions Recorded Confirmed atorvastatin 80 mg PO QPM 08/07/17 10/10/18 gabapentin 300 mg PO BID 08/07/17 10/10/18 Amitiza 24 mcg PO DAILY 12/07/17 10/10/18 furosemide 20 mg PO DAILY 12/07/17 10/10/18 warfarin 5 mg PO QPM 12/07/17 10/10/18 aspirin 81 mg PO DAILY 12/26/17 10/10/18 metoprolol succinate 50 mg PO DAILY 12/26/17 10/10/18 doxepin 100 mg PO BEDTIME 01/23/18 10/10/18 acetaminophen 650 mg PO Q6H PRN 10/10/18 10/10/18 diltiazem HCl 180 mg PO DAILY 10/10/18 10/10/18 escitalopram oxalate 20 mg PO DAILY 10/10/18 10/10/18 gabapentin 600 mg PO BEDTIME 10/10/18 10/10/18 naproxen sodium 220 - 440 mg PO Q8H PRN 10/10/18 10/10/18 nystatin 1 applic TOPICAL BID 10/10/18 10/10/18 omeprazole 20 mg PO DAILY 10/10/18 10/10/18 potassium chloride 10 meq PO QPM 10/10/18 10/10/18 Allergies Allergy/AdvReac Type Severity Reaction Status Date / Time Sulfa (Sulfonamide Allergy Intermediate Rash Verified 08/29/18 09:04 Antibiotics) Review of Systems Constitutional Denies chills, Denies fever(s), Denies lethargy and Denies weakness Eyes Denies change in vision, Denies eye discharge, Denies irritation and Denies loss of vision ENT Ears, Nose, Mouth, and Throat: Denies change in voice, Denies neck pain and Denies sore throat Cardiovascular Denies chest pain, Denies irregular heart rhythm, Denies lightheadedness, Denies palpitations, Denies dyspnea, Denies dyspnea on exertion and Denies orthopnea Respiratory Denies cough, Denies dyspnea, Denies dyspnea on exertion and Denies wheezing Gastrointestinal Gastrointestinal: Denies abdominal pain, Denies change in bowel habits, Denies diarrhea, Denies nausea and Denies vomiting Genitourinary Denies hematuria, Denies flank pain, Denies urinary incontinence and Denies urinary urgency Musculoskeletal Denies neck pain Comments: Right ankle pain and swelling Integumentary/Breasts Denies pruritus, Denies erythema, Denies rash and Denies wounds Neurologic Denies confusion, Denies loss of vision and Denies weakness Psychiatric Denies anxiety, Denies confusion, Denies depression, Denies homicidal ideation and Denies suicidal ideation Endocrine Denies palpitations Hematologic/Lymphatic Denies easy bruising Allergic/Immunologic Denies wheezing Exam Initial Vital Signs Initial Vital Signs: Vital Signs Temperature 98 F 10/10/18 16:30 Pulse Rate 75 10/10/18 16:30 Respiratory Rate 18 10/10/18 16:30 Blood Pressure 99/56 L 10/10/18 16:30 Pulse Oximetry 99 10/10/18 16:30 Const General: cooperative and well developed Nutritional Appearance: well nourished Orientation: alert, awake, oriented x3 and not confused [facility] Head: normocephalic and atraumatic Ears: external ears normal Nose: external nose normal and No nasal discharge Face and sinus: face symmetric and No dry mucous membranes Mouth: oral mucosae normal and moist mucous membranes Teeth and gingiva: dentition normal Eyes General: appearance normal, both eyes and all related structures Eyelids: eyelids normal Conjunctivae: conjunctivae normal Sclera: sclerae normal Pupils: PERRL EOM: EOM intact bilaterally Neck Neck: normal visual inspection, trachea midline, No lymphadenopathy, No midline deformity and No JVD Lymphatic: No lymphedema Chest Chest: normal inspection of the chest Resp Effort & Inspection: normal respiratory effort, able to speak in complete sent ences, no respiratory distress and no use of accessory muscles Auscultation: clear to auscultation bilaterally, no rales, no rhonchi and no wheezes Cardio Rate: regular rate Rhythm: regular rhythm Heart Sounds: no click, no gallops, no murmurs and no rubs Pulses: normal peripheral pulses GI Inspection: non-distended Palpation: soft, no hepatosplenomegaly, No guarding, No pulsatile mass and No tender Auscultation: normal bowel sounds Back/Spine/Pelvis Back: No CVA tenderness Cervical Spine: cervical ROM normal and No pain with cervical ROM Thoracic/Lumbar Spine: thoracic and lumbar spine normal to inspection Skin General: no rashes or lesions noted, No jaundice and No petechiae Neuro General: alert, oriented x3, gait normal and no focal motor deficits Speech: speech normal Extrem General: no pedal edema and no calf tenderness Right lower extremity: edema (Moderate, right ankle) Details: non-pitting and ankle Details: tenderness (Moderate, medially), swelling and ecchymosis (Small, medial) Psych Appearance: well kempt Mental Status: mental status grossly normal Attitude: cooperative Thought Content: normal and suicidality Judgment: judgment good [facility] Medical History Impaired fasting glucose (Acute) Stroke (Acute) Hyperlipidemia (Acute) Hypertension (Acute) Chronic pain (Acute) Pulmonary fibrosis (Acute) Surgical History No pertinent past surgical history (Acute) Social History details: two years ago number of children: 2 household members: none lives independently: Yes caregiver/support person: Yes housing: apartment other: Denies alcohol drinking or cigarette smoking. Her son of overdose 1 w Smoking Status: Former smoker Social History details: two years ago number of children: 2 household members: none lives independently: Yes caregiver/support person: Yes housing: apartment other: Denies alcohol drinking or cigarette smoking. Her son of overdose 1 w Smoking Status: Former smoker Procedures Orthopedic Splinting/Casting Injury #1: Side: right Lower Extremity Injury Location: ankle Lower Extremity Immobilizer: posterior splint and stirrup splint Post splinting neuro exam: intact Post splinting vascular exam: intact Placed by: Nursing (Under my direct supervision while reducing.) Additional Comments: Pressure was applied to patient's medial tibia and lateral calcaneus and talus to achieve better positioning of the ankle mortise. Course Course Narrative: Patient was given an ice pack in the emergency department and worked up with x-ray series of her right ankle, which showed a trimalleolar fracture with complete mortise disruption. I spoke with Dr. Pierre, who viewed the x-rays and stated the patient would need surgery and he would like to get it done tomorrow. He requested that the patient be admitted to Internal Medicine, secondary to her comorbidities, including AFib with anticoagulation. I spoke with Dr. Iniguez, who agreed to admit the patient to her service. Preoperative labs were obtained, and showed an INR 3.4 and a normal H&H. The patient was splinted in the emergency department, and per Dr. leiva request, pressure was applied to the patient's medial tibia and calcaneus and talus to try to shift the mortise into a better position. The patient was neurovascularly intact throughout her stay in the emergency department. She was informed of her need of admission and surgical repair. Orders Ordered: ED Orders 10/10/18 16:48 XR ankle RT min 3V Stat 10/10/18 18:19 Complete Blood Count AUTO DIFF Stat Comprehensive Metabolic Panel Stat Prothrombin Time INR Stat Type and Screen Stat 10/10/18 18:56 XR chest 1V Stat EKG-12 Lead Stat Sodium Chloride (Normal Saline 0.9%) 1,000 mls @ 150 mls/hr IV CONT JACQUELINE Last Admin: 10/10/18 18:29 Dose: 150 mls/hr Discontinued Medications Hydromorphone HCl (Dilaudid) 1 mg IV NOW ONE Stop: 10/10/18 18:12 Last Admin: 10/10/18 18:28 Dose: 1 mg Vital Signs - 8 hr 10/10/18 16:30 Temperature 98 F Pulse Rate 75 Respiratory Rate 18 Blood Pressure 99/56 L Pulse Oximetry 99 MDM - Fall Medical Records Attestation: I reviewed the patient's medical records. Lab Data Attestation: I reviewed the patient's lab results. Result diagrams: 10/10/18 18:19 10/10/18 18:19 Lab Results 10/10/18 10/10/18 10/10/18 Range/Units 18:19 18:19 18:19 WBC 15.2 H (4.5-11.0) X10^3/uL RBC 4.61 (4.0-5.2) X10^6/uL Hgb 13.8 (12.0-16.0) g/dL Hct 41.7 (36-46) % MCV 90.3 (80-100) fL MCH 30.0 (26-34) PG MCHC 33.2 (30-36) % RDW 18.0 H (11.6-14.8) % Plt Count 357 (150-400) X10^3/uL Neut % (Auto) 75.1 H (50-75) % Lymph % (Auto) 15.8 L (25-40) % [place] % (Auto) 6.5 (3-14) % Eos % (Auto) 2.0 (2-4) % Baso % (Auto) 0.6 (0-2) % Neut # (Auto) 43791 H (9301-0631) /uL Lymph # (Auto) 2400 (1581-6007) /uL [place] # (Auto) 1000 H (0-900) /uL Eos # (Auto) 300 (0-450) /uL Baso # (Auto) 100 (0-100) /uL PT 40.0 H D (10.1-12.7) SECONDS INR 3.4 H (0.9-1.3) Sodium 137 (137-145) mmol/L Potassium 4.7 (3.4-5.1) mmol/L Chloride 100 (98-107) mmol/L Carbon Dioxide 27 (22-32) mmol/L BUN 9 (7-17) mg/dL Creatinine 1.00 (0.52-1.04) mg/dL Estimated GFR 53.2 L (>60) mL/min BUN/Creatinine Ratio 9.0 (6-22) Glucose 113 H (80-110) mg/dL Calcium 10.2 (8.4-10.2) mg/dL Total Bilirubin 0.9 (0.2-1.3) mg/dL AST 29 (14-36) IU/L ALT 16 (9-52) IU/L Alkaline Phosphatase 122 (38-126) U/L Total Protein 8.1 (6.3-8.2) g/dL Albumin 4.4 (3.5-5.0) g/dL Globulin 3.7 (1.7-4.1) g/dL Albumin/Globulin Ratio 1.2 (1.0-2.8) Imaging Data Right ankle x-ray: Radiologist's impression: [address] [address] XRay Report Signed Patient: Tali Burton JMR#: [id number] : 1936Acct:[id number] Age/Sex: 83 / FDate of Service: 10/10/18 Loc: ED Accession Number: [id number] Procedure: XR ankle RT min 3V Ordering Provider: Madelyn Dias MD PROCEDURE: XR ANKLE RT MIN 3V INDICATIONS: injury TECHNIQUE: 3 views of the ankle were acquired. COMPARISON: None. FINDINGS: Bones: Acute oblique fracture through the distal fibular shaft is seen with anterior and lateral displacement at fracture site. Acute fracture involving medial malleolus is seen with lateral displacement of the fractured fragment. Complete disruption of ankle mortise is seen. There is also suggestion of subtle nondisplaced fracture involving lateral aspect of posterior malleolus extending to the tibiotalar joint space. Soft tissues: No tibiotalar joint effusion. Achilles tendon appears normal. Soft tissue swelling around ankle joint is seen. IMPRESSION: Suggestion of acute trimalleolar fracture with complete disruption of ankle mortise as above. Dictated by: Kraig Landry M.D. on 10/10/2018 at 17:13 Approved by: Kraig Landry M.D. on 10/10/2018 at 17:15 Discharge Plan Departure Patient Disposition: Admitted As Inpatient Clinical Impression: Ankle fracture Qualifiers: Encounter type: initial encounter Fracture type: closed Laterality: right Qualified Code(s): S82.891A - Other fracture of right lower leg, initial encounter for closed fracture
[2018-10-10] MEDS: HYDROMORPHONE 1 MG INJ IV (18:28)
[2018-10-10] MEDS: SODIUM CHLORIDE 0.9% 1,000 ML 150 ML IV ×2 (18:29→22:10)
--- NOTE | 2018-10-10 18:30 | PC.NURSE ---
patient asking to have her son notified. attempted to call son denise, no answer left a message.
[2018-10-10 18:35] LABS: Add Manual Diff / Slide Review NO; Basophils Absolute Auto 100 /uL (0-100); Basophils Percent Auto 0.6 % (0-2); Eosinophils Absolute Auto 300 /uL (0-450); Hematocrit 41.7 % (36-46); Hemoglobin 13.8 g/dL (12.0-16.0); Lymphocytes Absolute Auto 2400 /uL (1100-4500); Lymphocytes Percent Auto 15.8 % (25-40); Mean Corpuscular HGB Conc 33.2 % (30-36); Mean Corpuscular Volume 90.3 fL (80-100); Monocytes Absolute Auto 1000 /uL (0-900); Monocytes Percent Auto 6.5 % (3-14); Neutrophils Absolute Auto 11400 /uL (1500-7000); Neutrophils Percent Auto 75.1 % (50-75); Platelet Count 357 X10^3/uL (150-400); Red Blood Cell Count 4.61 X10^6/uL (4.0-5.2); White Blood Cell Count 15.2 X10^3/uL (4.5-11.0)
[2018-10-10 18:37] LABS: INR 3.4 (0.9-1.3)
[2018-10-10 18:44] LABS: Alanine Aminotransferase 16 IU/L (9-52); Albumin 4.4 g/dL (3.5-5.0); Albumin Globulin Ratio 1.2 (1.0-2.8); Alkaline Phosphatase 122 U/L (38-126); Aspartate Aminotransferase 29 IU/L (14-36); Bilirubin Total 0.9 mg/dL (0.2-1.3); Blood Urea Nitrogen 9 mg/dL (7-17); Calcium 10.2 mg/dL (8.4-10.2); Carbon Dioxide 27 mmol/L (22-32); Chloride 100 mmol/L (98-107); Estimated Glomerular Filt Rate 53.2 mL/min (>60); Globulin 3.7 g/dL (1.7-4.1); Glucose 113 mg/dL (80-110); Sodium 137 mmol/L (137-145); Total Protein 8.1 g/dL (6.3-8.2)
[2018-10-10 18:45] LABS: HEMOLYSIS 63 (0-50); Potassium 4.7 mmol/L (3.4-5.1)
--- NOTE | 2018-10-10 18:56 | DI.RAD.S_ITS ---
PROCEDURE: XR CHEST 1V INDICATIONS: pre-operative TECHNIQUE: One view of the chest was acquired. COMPARISON: [facility], CR, XR CHEST 1V, 08/30/2018, 13:33. FINDINGS: Surgical changes and devices: None. Lungs and pleura: Lungs are clear. No pleural effusions or pneumothorax. Mediastinum: Mediastinal contours appear normal. Heart size is normal. Bones and chest wall: No suspicious bony lesions. Overlying soft tissues appear unremarkable. IMPRESSION: No evidence acute pulmonary process. Dictated by: Ok Subramanian M.D. on 10/10/2018 at 19:49 Approved by: Ok Subramanian M.D. on 10/10/2018 at 19:50
--- NOTE | 2018-10-10 19:13 | DI.RAD.S_ITS ---
PROCEDURE: XR ANKLE RT MIN 3V INDICATIONS: Post reduction TECHNIQUE: 2 views of the ankle were acquired. COMPARISON: [facility], CR, XR ANKLE RT MIN 3V, 10/10/2018, 16:55. FINDINGS: Bones: Interval improvement in alignment of the ankle mortise. Distal fibular shaft fracture and medial malleolar fracture. Soft tissues: No tibiotalar joint effusion. Achilles tendon appears normal. IMPRESSION: Distal fibular fracture and medial malleolar fracture with disruption of ankle mortise. Improved alignment with reduction. Dictated by: Ok Subramanian M.D. on 10/10/2018 at 19:50 Approved by: Ok Subramanian M.D. on 10/10/2018 at 19:51
[2018-10-10 19:29] VITALS: BMI 34.2
--- NOTE | 2018-10-10 21:27 | PM.HP.1 ---
History of Present Illness Date Patient Seen: 10/10/18 Time Patient Seen: 21:28 Chief complaint: Fall Narrative: 83-year-old female resident of assisted living presents with acute fracture of her ankle. The patient reportedly had a ground level fall and injured the ankle. When questioned the patient is uncertain how she fell she has a little bit confused on my interview with her. She told me she was not using her walker but the ER note said that she was using the walker. None the last she did fall and did injure her ankle. Other than the pain in the ankle she has no other complaints. Patient History Medical History (Updated 10/10/18 @ 21:34 by Vaibhav Kapoor MD) GERD (gastroesophageal reflux disease) (Chronic) Depression (Chronic) Herpes encephalitis (Resolved) Impaired fasting glucose (Chronic) Stroke (Suspected) Hyperlipidemia (Chronic) Hypertension (Chronic) Chronic pain (Chronic) Pulmonary fibrosis (Chronic) Surgical History No pertinent past surgical history (Acute) Social History details: two years ago number of children: 2 household members: none lives independently: Yes caregiver/support person: Yes housing: apartment other: Denies alcohol drinking or cigarette smoking. Her son of overdose 1 w Smoking Status: Former smoker alcohol intake: former Family & Social History Social History: household members none Prior Living Arrangements Assisted Living lives independently Yes caregiver/support person Yes other Denies alcohol drinking or cigarette smoking. Her son of overdose 1 w Safety & Behavioral: Feels Safe in Current Yes Environment Been Physically Hurt or No Threatened By a Person Suicidal Ideation Description None Suicide Plan Description No Plan Tobacco & Substance use: Smoking Status Former smoker alcohol intake former alcohol intake frequency holiday/special occasion Substance Use Type does not use Meds Home Medications Medication Instructions Recorded Confirmed Type atorvastatin 80 mg PO QPM 08/07/17 10/10/18 History gabapentin 300 mg PO BID 08/07/17 10/10/18 History Amitiza 24 mcg PO DAILY 12/07/17 10/10/18 History furosemide 20 mg PO DAILY 12/07/17 10/10/18 History warfarin 5 mg PO QPM 12/07/17 10/10/18 History aspirin 81 mg PO DAILY 12/26/17 10/10/18 History metoprolol succinate 50 mg PO DAILY 12/26/17 10/10/18 History doxepin 100 mg PO BEDTIME 01/23/18 10/10/18 History acetaminophen 650 mg PO Q6H PRN 10/10/18 10/10/18 History diltiazem HCl 180 mg PO DAILY 10/10/18 10/10/18 History escitalopram oxalate 20 mg PO DAILY 10/10/18 10/10/18 History gabapentin 600 mg PO BEDTIME 10/10/18 10/10/18 History naproxen sodium 220 - 440 mg PO Q8H PRN 10/10/18 10/10/18 History nystatin 1 applic TOPICAL BID 10/10/18 10/10/18 History omeprazole 20 mg PO DAILY 10/10/18 10/10/18 History potassium chloride 10 meq PO QPM 10/10/18 10/10/18 History Allergies Allergy/AdvReac Type Severity Reaction Status Date / Time Sulfa (Sulfonamide Allergy Intermediate Rash Verified 08/29/18 09:04 Antibiotics) Review of Systems Constitutional Constitutional: Reports system reviewed and no additional complaints, except as documented Eyes Eyes: Reports system reviewed; no additional complaints, except as documented ENT Ears, Nose, Mouth, and Throat: Yes system reviewed; no additional complaints, except as documented Cardiovascular Cardiovascular: Denies chest pain Respiratory Respiratory: Denies chest congestion and Denies cough Gastrointestinal Gastrointestinal: Reports system reviewed and no additional complaints, except as documented Genitourinary Genitourinary: Reports system reviewed and no additional complaints, except as documented Musculoskeletal Musculoskeletal: Reports system reviewed; no additional complaints, except as documented Integumentary/Breasts Skin/Breast: Reports system reviewed and no additional complaints, except as documented Neurologic Neurologic: Reports system reviewed and no additional complaints, except as documented Psychiatric Psychiatric: Reports system reviewed and no additional complaints, except as documented Endocrine Endocrine: Reports system reviewed and no additional complaints, except as documented Hematologic/Lymphatic Hematologic/Lymphatic: Reports system reviewed and no additional complaints, except as documented Allergic/Immunologic Allergic/Immunologic: Reports system reviewed and no additional complaints, except as documented Exam Vital Signs (past 8 hours): - 10/10/18 16:30 Temperature 98 F Pulse Rate 75 Respiratory Rate 18 Blood Pressure 99/56 L Pulse Oximetry 99 Oxygen Delivery Method Room Air Narrative Exam Narrative: Pleasant elderly female with some confusion she is oriented to person but does not know the date nor does she know exactly where she is. She is actually also a very poor historian giving a very rambling history. In general no acute distress HEENT exam unremarkable Neck is supple nose no JVD no bruit Lungs clear to auscultation Heart irregular Abdomen soft obese nontender bowel sounds present Extremities are right ankle in a splint Skin warm and dry Neuro exam no focal motor or sensory deficits she does have the confusion as noted above oriented only to person Objective ECG Impression: Atrial fibrillation no acute ST changes Imaging Chest x-ray: My impression: No acute cardiopulmonary changes on the x-ray Radiologist's impression: IMPRESSION: No evidence acute pulmonary process. Labs Result Diagrams: 10/10/18 18:19 10/10/18 18:19 Labs: Laboratory Results - last 24 hr 10/10/18 10/10/18 10/10/18 18:19 18:19 18:19 WBC 15.2 H RBC 4.61 Hgb 13.8 Hct 41.7 MCV 90.3 MCH 30.0 MCHC 33.2 RDW 18.0 H Plt Count 357 Neut % (Auto) 75.1 H Lymph % (Auto) 15.8 L [place] % (Auto) 6.5 Eos % (Auto) 2.0 Baso % (Auto) 0.6 Neut # (Auto) 16334 H Lymph # (Auto) 2400 [place] # (Auto) 1000 H Eos # (Auto) 300 Baso # (Auto) 100 PT 40.0 H D INR 3.4 H Sodium 137 Potassium 4.7 Chloride 100 Carbon Dioxide 27 BUN 9 Creatinine 1.00 Estimated GFR 53.2 L BUN/Creatinine Ratio 9.0 Glucose 113 H Calcium 10.2 Total Bilirubin 0.9 AST 29 ALT 16 Alkaline Phosphatase 122 Total Protein 8.1 Albumin 4.4 Globulin 3.7 Albumin/Globulin Ratio 1.2 Blood Type Antibody Screen Antibody Identification 10/10/18 10/10/18 18:19 18:19 WBC RBC Hgb Hct MCV MCH MCHC RDW Plt Count Neut % (Auto) Lymph % (Auto) [place] % (Auto) Eos % (Auto) Baso % (Auto) Neut # (Auto) Lymph # (Auto) [place] # (Auto) Eos # (Auto) Baso # (Auto) PT INR Sodium Potassium Chloride Carbon Dioxide BUN Creatinine Estimated GFR BUN/Creatinine Ratio Glucose Calcium Total Bilirubin AST ALT Alkaline Phosphatase Total Protein Albumin Globulin Albumin/Globulin Ratio Blood Type O Negative Antibody Screen Positive Antibody Identification Anti-D Cancelled Assessment & Plan Assessment & Plan narrative: One. Ground level fall with acute trimalleolar fracture with complete disruption of ankle mortise. This has been reviewed by orthopedic surgery Dr. Pierre who is planning on surgical repair of this injury. 2. Chronic AFib with anticoagulation on warfarin INR of 3.4. The patient will need to be reversed for surgery. Vitamin K and FFP to be given this evening. There is a remote history of stroke back in 2005 the MRI done last month did not show any signs of a stroke. So I do not think that she has documented evidence of a stroke while having atrial fibrillation so she is not at excessively high risk for coming off anticoagulation and will not give her any Lovenox for bridging. 3. Hypertension currently stable plan to continue current medications 4. Depression on Lexapro also stable plan to continue Five. Increased confusion I think some of this may be due to some medication and pain medication she received earlier this evening she does seem to be a little bit more confused than at baseline which has been described. We will just continue to watch this carefully. 6. History of GERD on chronic omeprazole plan to continue 7. History of chronic back pain she has been on gabapentin that will also continue. She previously had been on hydrocodone but evidently was taken off this several months ago 8. Code status patient is full code I did discuss this with her this evening. 9. DVT prophylaxis SCD device to be used initially and then will reanticoagulated with warfarin postop Quality VTE Deep Vein Thrombosis/Pulmonary Embolism Present on Admission: No
[2018-10-10] MEDS: DOXEPIN 25 MG CAPSULE 100 MG PO (22:10)
[2018-10-10] MEDS: PHYTONADIONE (VIT K1) 5 MG TABLET PO (22:10)
[2018-10-10] MEDS: SODIUM CHLORIDE 0.9% 1,000 ML 75 ML IV (22:28)
[2018-10-10 22:40] VITALS: BP 114/62; PULSE 84; RESP 18; TEMP 36.4; O2SAT 96
[2018-10-10 22:46] VITALS: BP 114/62; PULSE 84; RESP 16; TEMP 36.4
[2018-10-10 23:09] VITALS: BP 130/54; PULSE 100; RESP 16; TEMP 36.5
[2018-10-10 23:29] VITALS: O2SAT 95
[2018-10-11] VITALS (27 sets, daily range): BP systolic 85–149; BP diastolic 53–99; PULSE 85–120; RESP 12–28; TEMP 36.2–37.1; O2SAT 92–99; BMI 34.2
--- NOTE | 2018-10-11 | DI.RAD.S_ITS ---
PROCEDURE: XR ANKLE RT 2V INDICATIONS: ORIF right ankle TECHNIQUE: 3 views of the ankle were acquired. COMPARISON: [facility], CR, XR ANKLE RT MIN 3V, 10/10/2018, 19:09. [facility], CR, XR ANKLE RT MIN 3V, 10/10/2018, 16:55. FINDINGS: Bones: Intraoperative fluoroscopy documenting the placement of internal fixation hardware along the distal right fibula and distal right medial malleolus, resulting in improved alignment of the previously identified fracture fragments. Soft tissues: Soft tissue edema and emphysema noted along the hardware placement sites. IMPRESSION: Intraoperative fluoroscopy documenting the placement of internal fixation hardware along the distal right fibula and distal right medial malleolus, resulting in improved alignment of the previously identified fracture fragments. Please see separately dictated operative report for further details. Dictated by: Anthony Taylor M.D. on 10/11/2018 at 23:21 Approved by: Anthony Taylor M.D. on 10/11/2018 at 23:23
--- NOTE | 2018-10-11 06:22 | PC.NURSE ---
Pt is alert to self, , and place, but not to time. She is a bit off, appears oriented at times, but then thinks things are going on in the hallways and talking about random people. Received 2 units of FFP without incident. NS@75mL/hr running as ordered. NPO for surgery today. SCD on left calf. Bed castaneda used. Splint to right leg. CMS+, has neuropathy at baseline in parts of her foot. Pts HR is irregular to auscultation. She is SOB on exertion, turning in bed at times can cause her to become tachypneic. Has Hx of Afib. May benefit from Tele. No complaints of pain.
[2018-10-11 06:30] LABS: INR 1.9 (0.9-1.3)
--- NOTE | 2018-10-11 07:34 | PM.PN.1 ---
Subjective Date Patient Seen: 10/11/18 Time Patient Seen: 07:35 Interval history: She is seen today to follow-up her right ankle fracture, elevated INR, dementia, atrial fibrillation, etc. She is pleasantly confused, admits to a poor memory, cannot recall the incident that injured her ankle and is without any particular questions. Despite the vitamin K and fresh frozen plasma given yesterday her INR is still elevated at 1.9. She is afebrile with a heart rate of 102 and otherwise vital signs stable. Exam Vital Signs (past 8 hours): - 10/11/18 01:17 10/11/18 01:20 10/11/18 01:36 Temperature 98.0 F 97.4 F L 98.4 F Pulse Rate 85 90 87 Respiratory Rate 18 17 17 Blood Pressure 108/66 140/70 108/80 Pulse Oximetry 99 96 10/11/18 03:59 10/11/18 04:17 Temperature 97.8 F 97.8 F Pulse Rate 99 H 102 H Respiratory Rate 17 17 Blood Pressure 119/66 119/66 Pulse Oximetry 95 Oxygen Delivery Method Room Air Oxygen Flow Rate 0 Narrative Exam Narrative: She is alert and oriented to name. She is pleasantly confused. Heart is irregularly irregular without murmur. Lungs are clear to auscultation bilaterally. Extremities have no ankle edema, the right ankle is in a splint and wrapped. She is able to move her toes and circulation appears to be intact. Objective Labs Result Diagrams: 10/10/18 18:19 10/10/18 18:19 Labs: Laboratory Results - last 24 hr 10/10/18 10/10/18 10/10/18 18:19 18:19 18:19 WBC 15.2 H RBC 4.61 Hgb 13.8 Hct 41.7 MCV 90.3 MCH 30.0 MCHC 33.2 RDW 18.0 H Plt Count 357 Neut % (Auto) 75.1 H Lymph % (Auto) 15.8 L [place] % (Auto) 6.5 Eos % (Auto) 2.0 Baso % (Auto) 0.6 Neut # (Auto) 16564 H Lymph # (Auto) 2400 [place] # (Auto) 1000 H Eos # (Auto) 300 Baso # (Auto) 100 PT 40.0 H D INR 3.4 H Sodium 137 Potassium 4.7 Chloride 100 Carbon Dioxide 27 BUN 9 Creatinine 1.00 Estimated GFR 53.2 L BUN/Creatinine Ratio 9.0 Glucose 113 H Calcium 10.2 Total Bilirubin 0.9 AST 29 ALT 16 Alkaline Phosphatase 122 Total Protein 8.1 Albumin 4.4 Globulin 3.7 Albumin/Globulin Ratio 1.2 Blood Type Antibody Screen Antibody Identification 10/10/18 10/10/18 10/11/18 18:19 18:19 06:10 WBC RBC Hgb Hct MCV MCH MCHC RDW Plt Count Neut % (Auto) Lymph % (Auto) [place] % (Auto) Eos % (Auto) Baso % (Auto) Neut # (Auto) Lymph # (Auto) [place] # (Auto) Eos # (Auto) Baso # (Auto) PT 22.0 H D INR 1.9 H Sodium Potassium Chloride Carbon Dioxide BUN Creatinine Estimated GFR BUN/Creatinine Ratio Glucose Calcium Total Bilirubin AST ALT Alkaline Phosphatase Total Protein Albumin Globulin Albumin/Globulin Ratio Blood Type O Negative Antibody Screen Positive Antibody Identification Anti-D Cancelled Assessment & Plan Assessment & Plan narrative: 1. Ground level fall with acute trimalleolar fracture with complete disruption of ankle mortise. - This has been reviewed by orthopedic surgery Dr. Pierre who is planning on surgical repair of this injury today. 2. Chronic AFib with anticoagulation on warfarin with INR of 3.4 on admit, 1.9 today. - The patient will need to be reversed for surgery. Vitamin K and FFP were given last evening. Additional FFP is ordered this morning. There is a remote history of stroke back in 2005 but the MRI done last month did not show any signs of a stroke. So I do not think that she has documented evidence of a stroke while having atrial fibrillation so she is not at excessively high risk for coming off anticoagulation and will not give her any Lovenox for bridging. 3. Hypertension currently stable plan to continue current medications 4. Depression on Lexapro also stable plan to continue 5. Increased confusion - Some of this may be due to some medication and pain medication she received earlier but she does seem to be a little bit more confused than at baseline which has been described. We will just continue to watch this carefully. 6. History of GERD on chronic omeprazole plan to continue 7. History of chronic back pain - she has been on gabapentin that will also continue. She previously had been on hydrocodone but evidently was taken off this several months ago. 8. Code status - patient is full code as discussed last evening. 9. DVT prophylaxis SCD device to be used initially and then will reanticoagulated with warfarin postop. Quality VTE Deep Vein Thrombosis/Pulmonary Embolism Present on Admission: No
[2018-10-11] MEDS: METOPROLOL ER 50 MG TABLET PO (10:53)
--- NOTE | 2018-10-11 11:29 | PC.NURSE ---
Addendum entered by Saima Boggs R.N. 10/11/18 13:50: PT becoming more confused when they took her to surgery. Unable to sign consent down stairs. Waiting for to be done with surgery so that he can talk to patients son to give two rns consent. Pts blood finished at 1142 or so. She tolerated well. Original Note: Pt is Alert but pleasantly confused. She states that her lower r.ankle is in pain but then will doze off, will check with patient again about discomfort. R.lower extremity is wrapped with soft cast and adelaida wrap. She is going to go to surgery later today. Dr. Restrepo ordered a unit of ffp which is up and infusing. Pt tolerating well and has no appearance of allergic reaction. Will continue to check on patient.
[2018-10-11 12:39] LABS: INR 1.5 (0.9-1.3); Prothrombin Time 17.8 SECONDS (10.1-12.7)
[2018-10-11] MEDS: LACTATED RINGERS 1,000 ML 42 ML IV ×2 (13:38→15:59)
--- NOTE | 2018-10-11 13:46 | SUR.HOLD ---
Pt became teary, stated people were saying she was crazy. Pt distracted easily and reassured.
--- NOTE | 2018-10-11 14:10 | PM.PREOP ---
Pre-operative Note Interval Note History & Physical reviewed/Exam performed by Physician: Yes Changes to H&P: No
--- NOTE | 2018-10-11 14:10 | PM.CN ---
History of Present Illness Date Patient Seen: 10/11/18 Time Patient Seen: 14:10 Chief complaint: Fall Reason for consult: right ankle fracture Requesting provider: Arden Pino Narrative: Ms. Burton is a 83 yo F with history of fall from standing and sustained closed ankle fracture dislocation. Informed consent was obtained from patient's son since patient has significant dementia. Patient is scheduled for right ankel ORIF with syndesmotic fixation. [facility] Medical History (Updated 10/10/18 @ 21:34 by Vaibhav Kapoor MD) GERD (gastroesophageal reflux disease) (Chronic) Depression (Chronic) Herpes encephalitis (Resolved) Impaired fasting glucose (Chronic) Stroke (Suspected) Hyperlipidemia (Chronic) Hypertension (Chronic) Chronic pain (Chronic) Pulmonary fibrosis (Chronic) Surgical History No pertinent past surgical history (Acute) Social History details: two years ago number of children: 2 household members: none lives independently: Yes caregiver/support person: Yes housing: apartment other: Denies alcohol drinking or cigarette smoking. Her son of overdose 1 w Smoking Status: Former smoker alcohol intake: former Social History details: two years ago number of children: 2 household members: none lives independently: Yes caregiver/support person: Yes housing: apartment other: Denies alcohol drinking or cigarette smoking. Her son of overdose 1 w Smoking Status: Former smoker alcohol intake: former Meds Home Medications Medication Instructions Recorded Confirmed Type atorvastatin 80 mg PO QPM 08/07/17 10/10/18 History gabapentin 300 mg PO BID 08/07/17 10/10/18 History Amitiza 24 mcg PO DAILY 12/07/17 10/10/18 History furosemide 20 mg PO DAILY 12/07/17 10/10/18 History warfarin 5 mg PO QPM 12/07/17 10/10/18 History aspirin 81 mg PO DAILY 12/26/17 10/10/18 History metoprolol succinate 50 mg PO DAILY 12/26/17 10/10/18 History doxepin 100 mg PO BEDTIME 01/23/18 10/10/18 History acetaminophen 650 mg PO Q6H PRN 10/10/18 10/10/18 History diltiazem HCl 180 mg PO DAILY 10/10/18 10/10/18 History escitalopram oxalate 20 mg PO DAILY 10/10/18 10/10/18 History gabapentin 600 mg PO BEDTIME 10/10/18 10/10/18 History naproxen sodium 220 - 440 mg PO Q8H PRN 10/10/18 10/10/18 History nystatin 1 applic TOPICAL BID 10/10/18 10/10/18 History omeprazole 20 mg PO DAILY 10/10/18 10/10/18 History potassium chloride 10 meq PO QPM 10/10/18 10/10/18 History Allergies Allergy/AdvReac Type Severity Reaction Status Date / Time Sulfa (Sulfonamide Allergy Intermediate Rash Verified 10/11/18 13:14 Antibiotics) Exam Vital Signs (past 8 hours): - 10/11/18 08:00 10/11/18 08:30 10/11/18 09:53 Temperature 97.8 F 97.8 F 97.8 F Pulse Rate 107 H 107 H 107 H Respiratory Rate 16 16 16 Blood Pressure 135/97 H 135/97 H 135/97 H Pulse Oximetry 98 10/11/18 10:06 10/11/18 11:22 10/11/18 11:42 Temperature 98.1 F 98.7 F Pulse Rate 120 H 100 H Respiratory Rate 18 12 Blood Pressure 137/88 147/82 H Pulse Oximetry 93 10/11/18 12:02 10/11/18 13:34 Temperature 98.7 F 97.9 F Pulse Rate 100 H 115 H Respiratory Rate 12 28 H Blood Pressure 147/82 H 130/79 Pulse Oximetry 98 Oxygen Delivery Method Room Air Oxygen Flow Rate 0 Objective Labs Result Diagrams: 10/10/18 18:19 10/10/18 18:19 Labs: Laboratory Results - last 24 hr 10/10/18 10/10/18 10/10/18 18:19 18:19 18:19 WBC 15.2 H RBC 4.61 Hgb 13.8 Hct 41.7 MCV 90.3 MCH 30.0 MCHC 33.2 RDW 18.0 H Plt Count 357 Neut % (Auto) 75.1 H Lymph % (Auto) 15.8 L [place] % (Auto) 6.5 Eos % (Auto) 2.0 Baso % (Auto) 0.6 Neut # (Auto) 49430 H Lymph # (Auto) 2400 [place] # (Auto) 1000 H Eos # (Auto) 300 Baso # (Auto) 100 PT 40.0 H D INR 3.4 H Sodium 137 Potassium 4.7 Chloride 100 Carbon Dioxide 27 BUN 9 Creatinine 1.00 Estimated GFR 53.2 L BUN/Creatinine Ratio 9.0 Glucose 113 H Calcium 10.2 Total Bilirubin 0.9 AST 29 ALT 16 Alkaline Phosphatase 122 Total Protein 8.1 Albumin 4.4 Globulin 3.7 Albumin/Globulin Ratio 1.2 Blood Type Antibody Screen Antibody Identification 10/10/18 10/10/18 10/11/18 18:19 18: 06:10 WBC RBC Hgb Hct MCV MCH MCHC RDW Plt Count Neut % (Auto) Lymph % (Auto) [place] % (Auto) Eos % (Auto) Baso % (Auto) Neut # (Auto) Lymph # (Auto) [place] # (Auto) Eos # (Auto) Baso # (Auto) PT 22.0 H D INR 1.9 H Sodium Potassium Chloride Carbon Dioxide BUN Creatinine Estimated GFR BUN/Creatinine Ratio Glucose Calcium Total Bilirubin AST ALT Alkaline Phosphatase Total Protein Albumin Globulin Albumin/Globulin Ratio Blood Type O Negative Antibody Screen Positive Antibody Identification Anti-D Cancelled 10/11/18 12:18 WBC RBC Hgb Hct MCV MCH MCHC RDW Plt Count Neut % (Auto) Lymph % (Auto) [place] % (Auto) Eos % (Auto) Baso % (Auto) Neut # (Auto) Lymph # (Auto) [place] # (Auto) Eos # (Auto) Baso # (Auto) PT 17.8 H INR 1.5 H Sodium Potassium Chloride Carbon Dioxide BUN Creatinine Estimated GFR BUN/Creatinine Ratio Glucose Calcium Total Bilirubin AST ALT Alkaline Phosphatase Total Protein Albumin Globulin Albumin/Globulin Ratio Blood Type Antibody Screen Antibody Identification Assessment & Plan Assessment & Plan narrative: 83 yo F with closed right ankle trimalleolar fx dislocation. After discussing with patient's son about risks and benefits of treatment options, her son gave permission verbally for us to proceed with surgery treatment. She is scheduled for right ankle ORIF with syndesmotic fixation.
--- NOTE | 2018-10-11 15:02 | SUR.HOLD ---
Block start time [1415] . Monitoring initiated and maintained throughout procedure. Oxygen and medications given per anesthesiologist instructions. Patient remained stable throughout procedure, no adverse reactions noted. Block end time [1442]. Two blocks were done by Dr. Brand. One on the anterior thigh and one on the posterior thigh.
[2018-10-11] MEDS: CEFAZOLIN VIAL 1 GM in SODIUM CHLORIDE 0.9% 100 ML 200 ML IV (15:10)
--- NOTE | 2018-10-11 15:20 | SUR.OPER ---
Supine on padded OR bed, head on pillow, arms secured on padded arm boards at <90 degrees abduction, legs uncrossed, safety belt at waist, tape over blanket over left lower leg. Right leg under control of surgeon. Gel bump under right hip.
--- NOTE | 2018-10-11 15:50 | P.PCN_ITS ---
Procedures Date/Time Date of procedure: 10/11/18 Time of procedure: 14:05 General Procedure description: Ultrasound guided popliteal sciatic and saphenous nerve blocks for post op pain control after right ankle ORIF by Dr. Pierre. Risk and benef its of procedure discussed with patient. ASA monitoring applied to patient. Oxygen given via nasal cannula. 50 mcg fentanyl given for procedural sedation. For sciatic nerve block, skin site was prepped with chlorhexidine and allowed to fully dry. Sterile gloves, mask, hat and probe cover were used to maintain sterility. 2% lidocaine and 30ga needle was used to make a small skin wheal at needle insertion site. Under ultrasound guidance, a 21ga 100mm Paj[place] needle was directed near the division of the sciatic nerve into tibial and peroneal nerve in the popliteal fossa (lateral approach). Patient reported no parasthesias. After negative aspiration, 20 mL 0.5% ropivicaine and 5mg dexamethasone were injected around sciatic nerve. Patient tolerated procedure well. For saphenous nerve block, skin site was prepped with chlorhexidine at the level of mid thigh for adductor canal block. 1% lidocaine was use to anesthetize skin. Under US visualization, the femoral artery was locate. The 100mm Pajunk needle was directed into the adductor canal under US guidance, near the femoral artery. Negative aspirative. 20mL of 0.5% ropivicaine and 5mg dexamethasone were injected, no pararsthesias reported. See US photos below. First on is sciatic block, the second is saphenous nerve block.
--- NOTE | 2018-10-11 16:01 | CM.DPNOTE ---
Patient is an 83 year old female who was admitted on 10/10/18 for Fall. Pt has [facility] for insurance and her PCP is Dr. Carissa Chen. EMR was reviewed. Per MD, pt to have surgery today. SW attempted bedside assessment but pt off the floor most of the day in surgery. TRAN received a call from Tonia at [facility] inquiring about pt and TRAN updated her that pt currently off floor in surgery. Tonia states that pt recently went from [facility] and then moved into their facility at the beginning of this month before she fell and broke her ankle. Tonia requesting update after surgery and PT eval to determine if pt can return or will need SNF rehab. Plan: SW to follow tomorrow after surgery is complete today and PT eval to determine return to [facility] vs possible SNF rehab. EMILY Alberto
--- NOTE | 2018-10-11 16:53 | P.OP_ITS ---
Operative Date/Time/Diagnoses Date of procedure: 10/11/18 Time of procedure: 14:40 Pre-op diagnosis: 1. Right ankle trimalleolar fracture dislocation 2. Right ankle syndesmosis disruption Post-op diagnosis: same Procedure & Clinicians Procedure: 1. Right ankle open reduction internal fixation of medial and lateral malleolus 2. Open reduction and stabilization of syndesmosis with screws Same procedure as scheduled: Yes Indications: Ms. Burton sustained a right ankle fracture dislocation with syndesmosis injury. Patient's dislocation was improved with close reduction by ER physician. Orthopaedic service was consulted. After discussing with patient's son, patient was scheduled for emergent ORIF of her right ankle. Surgeon: Charissa Pierre Talent Acquisition Partner: Sameera Church Click Yes if Unassisted: No Anesthesia Type: General and Peripheral nerve block Operative Notes Closure Type: primary Specimen(s): none sent Prosthetic devices, grafts, tissues, transplants, or devices: Synthes 1/3 tubular plate, fully threaded cancellous screws, fully threaded cortical screws, partially threaded cancellous screws Applied: catheter Estimated Blood Loss (mL): 10 Blood products transfused: none Tourniquet time (min): 78 Procedure in detail: Patient was identified in the preoperative area. Informed consent was obtained from patient's son and placed in the chart. Surgical site was marked. Patient was then taken to the operating room. Prophylactic antibiotic was given less than half our prior to skin incision. General anesthesia was administered. A tourniquet was placed on patient's right upper thigh. Patient's right lower extremity was prepped and draped in a sterile fashion from the toes all the way to the tourniquet. Time-out was performed at this time. Patient's right leg was then exsanguinated using the Esmarch. Tourniquet was then inflated to 250 mm Hg. A lateral incision was made directly over the fracture of the lateral malleolus. The fracture site was exposed. The tibial talar joint was also inspected after the fracture site was exposed. There were several small pieces of loose fragments of bone inside the joint. The loose fragments was removed using pickups suction. There are also several small area with cartilage injury on the talus from the traumatic fracture dislocation. The fracture hematoma was debrided using the curette and [place]. A lobster claw reduction clamp was used to reduce the fracture. a lag screw was placed across the fracture site by drilling the proximal cortex with a 3.5 mm drill bit and the distal cortex with a 2.5 mm drill bit. After measuring the depth gauge a fully-threaded cortical screw was placed across the fracture holding it in the reduced position. The fracture was held in the reduced position while a 1/3 tubular plate was placed on the lateral aspect of the lateral malleolus. The plate was stabilized to the lateral malleolus while the plate was held in the reduced position by drilling and filling the holes of the 8 hole 1/3 tubular plate. Depth gauge was used to measure the length of the screws. Three proximal fully-threaded cortical screws were placed, one distal fully threaded cancellous screw was placed in the last hole of the 8 hole plate. After placement of the hardware AP and lateral C-arm imaging was taken to confirm placement of the hardware as well as reduction of the fracture. The lateral malleolus fracture was stabilized by placing the plate and screw combination. Incision was made over the medial malleolus from approximately 3 cm proximal to the tip of the medial malleolus to the tip. Dissection was made down to the level of the periosteum using Metzenbaum scissors. Fracture site was exposed. Periosteum was excised at the edge of the fracture. Hematoma and fragments of bone was freed from the fracture site using micro curette. The tibial talar joint was then inspected. There were multiple loose fragments of cartilage and bone inside the tibiotalar joint which was removed using pickups irrigation and micro curette. There were several areas of cartilaginous injury on the talus from the trauma. Next a [id number] reduction clamp was used to reduce the medial malleolus. AP and lateral C-arm imaging was used to confirm the reduction which was anatomic. 2.5mm drill bit was used to drill from the tip of the medial malleolus towards the metaphysis. A 2nd 25 drill bit was used to drill in the same fashion from distal tip towards the metaphysis in a parallel fashion. Two 50 mm partially threaded cancellous screw was used to stabilize the fracture after the drill bits was removed from the tip of the medial malleolus both screws had good purchase. AP and lateral x-ray was used to confirm the reduction and maintenance of the reduction of the fracture. Excellent reduction and maintenance of the reduction was confirmed with the x-ray imaging intraoperatively. Cotton test was performed confirming the syndesmotic injury. A large periarticular clamp was used to reduce the syndesmosis in anatomic position and holding it in the anatomic position. 2.5 mm drill bit was used drilling through the 1/3 tubular plate in the 2nd and 3rd most distal holes in a tricortical fashion and confirming on C-arm imaging to be parallel to the ankle mortise. Depth gauge was used to measure the length of the syndesmotic screws 245 mm fully threaded cancellous screws were placed through the syndesmosis holding in the anatomic position. The wound was then closed using a 2-0 Vicryl and 3-0 nylon suture. Patient's right ankle was then placed into a short-leg posterior splint. During the process of both inspecting the lateral and the medial malleolus fracture, multiple fragments of comminution was identified with multiple pieces of fragments of bone in the tibial talar joint. The fragments were removed. both medial lateral aspect of the ankle were not able to be keyed in the fully due to the severe comminution. Good reduction of the fracture and maintenance of the reduction was accomplished by using the hardware used today. A posterior splint along with stirrup was placed after a sterile dressing was applied to patient's right leg. Patient was then transferred to recovery room in stable condition. Patient will be instructed to be nonweightbearing to her right ankle for 4 weeks. Patient is instructed to return to clinic in 2 weeks for suture removal and also placed into a short-leg cast. Patient can start weight-bearing in the CAM walker 4 weeks after surgery. Complications: none Condition: stable Disposition: PACU Plan for aftercare: Admit to inpatient hospital NWB to RLE in splint May discharge to care facility when medically able, possibly tomorrow
[2018-10-11] MEDS: LACTATED RINGERS 1,000 ML 125 ML IV (19:25)
[2018-10-11] MEDS: ACETAMINOPHEN 325 MG TABLET 975 MG PO (20:09)
[2018-10-11] MEDS: DOXEPIN 25 MG CAPSULE 100 MG PO (20:10)
[2018-10-11] MEDS: ATORVASTATIN 20 MG TABLET 80 MG PO (20:11)
[2018-10-11] MEDS: GABAPENTIN 600 MG TABLET PO (20:12)
[2018-10-11] MEDS: NYSTATIN POWDER 15GM 1 APPLIC TOP (20:13)
[2018-10-11] MEDS: POTASSIUM CHLORIDE 10 MEQ TAB PO (20:13)
[2018-10-11] MEDS: CEFAZOLIN 2 GM/100 ML FROZ.PIGGY IV (23:15)
[2018-10-12] MEDS: LACTATED RINGERS 1,000 ML 125 ML IV (04:05)
[2018-10-12 05:00] VITALS: BP 143/84; PULSE 103; RESP 16; TEMP 36.3; O2SAT 100
--- NOTE | 2018-10-12 05:13 | PC.NURSE ---
Denies pain , states I'm okay I have no pain. Slept most of the shift, will cont. POC & monitor.
[2018-10-12 05:54] LABS: Add Manual Diff / Slide Review NO; Basophils Absolute Auto 0 /uL (0-100); Basophils Percent Auto 0.3 % (0-2); Eosinophils Absolute Auto 0 /uL (0-450); Hematocrit 33.7 % (36-46); Hemoglobin 11.5 g/dL (12.0-16.0); Lymphocytes Absolute Auto 900 /uL (1100-4500); Lymphocytes Percent Auto 7.4 % (25-40); Mean Corpuscular HGB Conc 34.2 % (30-36); Mean Corpuscular Hemoglobin 30.4 PG (26-34); Mean Corpuscular Volume 88.9 fL (80-100); Monocytes Absolute Auto 300 /uL (0-900); Monocytes Percent Auto 2.3 % (3-14); Neutrophils Absolute Auto 11100 /uL (1500-7000); Platelet Count 257 X10^3/uL (150-400); Red Blood Cell Count 3.79 X10^6/uL (4.0-5.2); White Blood Cell Count 12.3 X10^3/uL (4.5-11.0)
[2018-10-12 06:04] LABS: Alanine Aminotransferase 19 IU/L (9-52); Albumin 3.7 g/dL (3.5-5.0); Albumin Globulin Ratio 1.1 (1.0-2.8); Alkaline Phosphatase 109 U/L (38-126); Aspartate Aminotransferase 20 IU/L (14-36); BUN Creatinine Ratio 12.9 (6-22); Bilirubin Total 0.9 mg/dL (0.2-1.3); Blood Urea Nitrogen 9 mg/dL (7-17); Calcium 9.8 mg/dL (8.4-10.2); Carbon Dioxide 28 mmol/L (22-32); Chloride 104 mmol/L (98-107); Estimated Glomerular Filt Rate > 60.0 mL/min (>60); Globulin 3.3 g/dL (1.7-4.1); Glucose 160 mg/dL (80-110); HEMOLYSIS < 15 (0-50); Potassium 4.1 mmol/L (3.4-5.1); Sodium 138 mmol/L (137-145)
[2018-10-12] MEDS: CEFAZOLIN 2 GM/100 ML FROZ.PIGGY IV (06:18)
[2018-10-12] MEDS: PANTOPRAZOLE 20 MG TABLET PO ×2 (06:18→09:43)
--- NOTE | 2018-10-12 08:57 | DI.RAD.S_ITS ---
PROCEDURE: XR CHEST 1V INDICATIONS: hypoxemia TECHNIQUE: One view of the chest was acquired. COMPARISON: [facility], CR, XR CHEST 1V, 10/10/2018, 19:09. FINDINGS: Surgical changes and devices: None. Lungs and pleura: There is a vague area of increased density within the right lung, which is more prominent on the current study, compared to the previous exam. No effusion or pneumothorax is appreciated. There may be mild pleural thickening/scarring within the bilateral lung apices. Mediastinum: Mediastinal contours appear normal. Heart size is normal. There is aortic atherosclerosis. Bones and chest wall: No suspicious bony lesions. Overlying soft tissues appear unremarkable. IMPRESSION: Increasing density of the right lung compared to the prior is suggestive of asymmetric pulmonary edema or developing infection. Please correlate clinically. Dictated by: Lenny Doyle M.D. on 10/12/2018 at 8:44 Approved by: Lenny Doyle M.D. on 10/12/2018 at 8:45
[2018-10-12 09:00] VITALS: BP 130/77; PULSE 103; RESP 18; TEMP 36.4; O2SAT 96
--- NOTE | 2018-10-12 09:00 | PM.PN.1 ---
Subjective Date Patient Seen: 10/12/18 Time Patient Seen: 09:00 Interval history: Patient relates that she slept well last night and is feeling better as far as pain in her foot today. Exam Vital Signs (past 8 hours): - 10/12/18 05:00 Temperature 97.4 F L Pulse Rate 103 H Respiratory Rate 16 Blood Pressure 143/84 H Pulse Oximetry 100 Oxygen Delivery Method Nasal Cannula Oxygen Flow Rate 3 Narrative Exam Narrative: She is asleep but easily arousable and awake and at her baseline which is confused. Oropharynx clear Neck is supple Lungs Clear to auscultation Heart irregular slightly tachycardic Abdomen soft nontender Extremities the ankle is in a splint. Objective Labs Result Diagrams: 10/12/18 05:35 10/12/18 05:35 Labs: Laboratory Results - last 24 hr 10/10/18 10/11/18 10/12/18 18:19 12:18 05:35 WBC 12.3 H RBC 3.79 L Hgb 11.5 L Hct 33.7 L MCV 88.9 MCH 30.4 MCHC 34.2 RDW 17.0 H Plt Count 257 Neut % (Auto) 90.0 H Lymph % (Auto) 7.4 L [place] % (Auto) 2.3 L Eos % (Auto) 0.0 L Baso % (Auto) 0.3 Neut # (Auto) 35382 H Lymph # (Auto) 900 L [place] # (Auto) 300 Eos # (Auto) 0 Baso # (Auto) 0 PT 17.8 H INR 1.5 H Sodium Potassium Chloride Carbon Dioxide BUN Creatinine Estimated GFR BUN/Creatinine Ratio Glucose Calcium Total Bilirubin AST ALT Alkaline Phosphatase Total Protein Albumin Globulin Albumin/Globulin Ratio Blood Type O Negative Antibody Screen Positive Antibody Identification Anti-D 10/12/18 05:35 WBC RBC Hgb Hct MCV MCH MCHC RDW Plt Count Neut % (Auto) Lymph % (Auto) [place] % (Auto) Eos % (Auto) Baso % (Auto) Neut # (Auto) Lymph # (Auto) [place] # (Auto) Eos # (Auto) Baso # (Auto) PT INR Sodium 138 Potassium 4.1 Chloride 104 Carbon Dioxide 28 BUN 9 Creatinine 0.70 Estimated GFR > 60.0 BUN/Creatinine Ratio 12.9 Glucose 160 H Calcium 9.8 Total Bilirubin 0.9 AST 20 ALT 19 Alkaline Phosphatase 109 Total Protein 7.0 Albumin 3.7 Globulin 3.3 Albumin/Globulin Ratio 1.1 Blood Type Antibody Screen Antibody Identification Assessment & Plan Assessment & Plan narrative: 1. Ground level fall with acute trimalleolar fracture with complete disruption of ankle mortise. -status post surgical repair on October [address] Landry. Patient had right ankle open reduction internal fixation of medial and lateral malleolus and open reduction and stabilization of symptom most this with screws Patient will continue as per orthopedic orders and protocol and physical therapy. She most likely will need long-term facility for rehab 2. Chronic AFib with anticoagulation on warfarin with INR of 3.4 on admit, this was reversed with vitamin K and FFP prior to surgery. Plan to resume warfarin today. 3. Hypertension currently stable plan to continue current medications 4. Depression on Lexapro also stable plan to continue 5. Increased confusion -her confusion and mental status appears to be at baseline. 6. History of GERD on chronic omeprazole plan to continue 7. History of chronic back pain - she has been on gabapentin that will also continue. She previously had been on hydrocodone but evidently was taken off this several months ago. 8. Code status - patient is full code as discussed with the patient on October 10 on admission 9. DVT prophylaxis SCD device to be used initially and then will reanticoagulated with warfarin postop. Time Spent With Patient Time with patient: 25 - 35 minutes Quality VTE Deep Vein Thrombosis/Pulmonary Embolism Present on Admission: No
[2018-10-12] MEDS: POLYETHYLENE GLYCOL 3350 17 GM POWD.PACK PO (09:43)
[2018-10-12] MEDS: dilTIAZem CD 180 MG CAP PO (09:44)
[2018-10-12] MEDS: METOPROLOL ER 50 MG TABLET PO (09:44)
[2018-10-12] MEDS: ACETAMINOPHEN 325 MG TABLET 975 MG PO ×3 (09:44→20:55)
[2018-10-12] MEDS: GABAPENTIN 300 MG CAPSULE PO ×2 (09:44→20:55)
[2018-10-12] MEDS: ESCITALOPRAM 10 MG TABLET 20 MG PO (09:47)
[2018-10-12] MEDS: NYSTATIN POWDER 15GM 1 APPLIC TOP ×2 (09:48→21:01)
[2018-10-12] MEDS: FUROSEMIDE 20 MG TABLET PO (09:48)
--- NOTE | 2018-10-12 10:58 | PM.PNPO.1 ---
Subjective Date Patient Seen: 10/12/18 Time Patient Seen: 10:58 Interval history: Hospital day 3, postop day 1 following right ankle trimalleolar fracture/dislocation with ankle ORIF and syndesmotic screws by Dr. Pierre. She has remained stable postoperatively. Nonweightbearing right leg. Patient was at [facility] prior to coming to the hospital. Exam Vital Signs (past 8 hours): - 10/12/18 05:00 10/12/18 09:00 Temperature 97.4 F L 97.5 F L Pulse Rate 103 H 103 H Respiratory Rate 16 18 Blood Pressure 143/84 H 130/77 Pulse Oximetry 100 96 Oxygen Delivery Method Nasal Cannula Oxygen Flow Rate 3 Narrative Exam Narrative: Patient is alert and responsive in no acute distress lying in bed. Right leg. Bulky right lower leg splint in place without signs of drainage. There is good blanching and sensation to all toes. Patient not able to move her toes. Objective Labs Result Diagrams: 10/12/18 05:35 10/12/18 05:35 Labs: Laboratory Results - last 24 hr 10/11/18 10/12/18 10/12/18 12:18 05:35 05:35 WBC 12.3 H RBC 3.79 L Hgb 11.5 L Hct 33.7 L MCV 88.9 MCH 30.4 MCHC 34.2 RDW 17.0 H Plt Count 257 Neut % (Auto) 90.0 H Lymph % (Auto) 7.4 L [place] % (Auto) 2.3 L Eos % (Auto) 0.0 L Baso % (Auto) 0.3 Neut # (Auto) 08625 H Lymph # (Auto) 900 L [place] # (Auto) 300 Eos # (Auto) 0 Baso # (Auto) 0 PT 17.8 H INR 1.5 H Sodium 138 Potassium 4.1 Chloride 104 Carbon Dioxide 28 BUN 9 Creatinine 0.70 Estimated GFR > 60.0 BUN/Creatinine Ratio 12.9 Glucose 160 H Calcium 9.8 Total Bilirubin 0.9 AST 20 ALT 19 Alkaline Phosphatase 109 Total Protein 7.0 Albumin 3.7 Globulin 3.3 Albumin/Globulin Ratio 1.1 Assessment & Plan Post-op Postoperative Procedures Operation Date: 10/11/18 16:15 Actual Procedures Side Surgeon p ORIF Ankle Fracture, distal tibia and fibula with plates and screws Right Charissa Pierre MD Plan: Patient is orthopedically stable. She will remain in her lower leg splint for 10-14 days postop and will need a postop appointment at Orthopedic office at that time to remove the splint and taking the sutures out and obtain x-rays and place an lower leg cast or boot. She will be nonweightbearing for 6 weeks postop and then will need to be seen by Dr. Pierre to schedule for removal of syndesmosis screws. Quality VTE Deep Vein Thrombosis/Pulmonary Embolism Present on Admission: No
--- NOTE | 2018-10-12 11:01 | P.PN_ITS ---
Subjective Date Patient Seen: 10/12/18 Time Patient Seen: 10:58 Interval history: Hospital day 3, postop day 1 following right ankle trimalleolar fracture/dislocation with ankle ORIF and syndesmotic screws by Dr. Pierre. She has remained stable postoperatively. Nonweightbearing right leg. Bentley adorno was at [facility] prior to coming to the hospital. Exam Vital Signs (past 8 hours): - 10/12/18 05:00 10/12/18 09:00 Temperature 97.4 F L 97.5 F L Pulse Rate 103 H 103 H Respiratory Rate 16 18 Blood Pressure 143/84 H 130/77 Pulse Oximetry 100 96 Oxygen Delivery Method Nasal Cannula Oxygen Flow Rate 3 Narrative Exam Narrative: Patient is alert and responsive in no acute distress lying in bed. Right leg. Bulky right lower leg splint in place without signs of drainage. There is good blanching and sensation to all toes. Patient not able to move her toes. Objective Labs Result Diagrams: 10/12/18 05:35 10/12/18 05:35 Labs: Laboratory Results - last 24 hr 10/11/18 10/12/18 10/12/18 12:18 05:35 05:35 WBC 12.3 H RBC 3.79 L Hgb 11.5 L Hct 33.7 L MCV 88.9 MCH 30.4 MCHC 34.2 RDW 17.0 H Plt Count 257 Neut % (Auto) 90.0 H Lymph % (Auto) 7.4 L [place] % (Auto) 2.3 L Eos % (Auto) 0.0 L Baso % (Auto) 0.3 Neut # (Auto) 20963 H Lymph # (Auto) 900 L [place] # (Auto) 300 Eos # (Auto) 0 Baso # (Auto) 0 PT 17.8 H INR 1.5 H Sodium 138 Potassium 4.1 Chloride 104 Carbon Dioxide 28 BUN 9 Creatinine 0.70 Estimated GFR > 60.0 BUN/Creatinine Ratio 12.9 Glucose 160 H Calcium 9.8 Total Bilirubin 0.9 AST 20 ALT 19 Alkaline Phosphatase 109 Total Protein 7.0 Albumin 3.7 Globulin 3.3 Albumin/Globulin Ratio 1.1 Assessment & Plan Post-op Postoperative Procedures Operation Date: 10/11/18 16:15 Actual Procedures Side Surgeon p ORIF Ankle Fracture, distal tibia and fibula with plates and screws Right Charissa Pierre MD Plan: Patient is orthopedically stable. She will remain in her lower leg splint for 10-14 days postop and will need a postop appointment at Orthopedic office at that time to remove the splint and taking the sutures out and obtain x-rays and place an lower leg cast or boot. She will be nonweightbearing for 6 weeks postop and then will need to be seen by Dr. Pierre to schedule for removal of syndesmosis screws. Quality VTE Deep Vein Thrombosis/Pulmonary Embolism Present on Admission: No
[2018-10-12 11:21] LABS: HCO3 ABG 22 mmol/L (22-26); PCO2 ABG 32.4 mmHg (35-45); PO2 ABG 74 mmHg (80-100); pH ABG 7.45 (7.35-7.45)
[2018-10-12 11:22] LABS: Fractionated Inspired Oxygen 0.21; Oxygen Saturation ABG 95 % (95-100); TCO2 ABG 23 mmol/L (21-31)
--- NOTE | 2018-10-12 11:43 | PC.NURSE ---
Addendum entered by Saima Boggs R.N. 10/12/18 13:19: Pt up with PT and tolerated well. Sitting up in chair now and comfortable. Transferred well and is no weight bearing on r.ankle for 1 month. Original Note: Pt is A&Ox2 this shift. She is moving well side to side to use the bedpan, and has been incontinent of urine x1. R.lower ankle with soft cast in place and adelaida wrap. PPX2 and cms wnl. Given tylenol for discomfort of 2/10 pain. Helpful, P.T. getting patient up out of bed now.
--- NOTE | 2018-10-12 11:50 | PT.IIE ---
Current Diagnoses Displaced trimalleolar fracture of right lower leg, initial encounter for closed fracture (10/10/18) Surgery Performed Operation Date: 10/11/18 16:15 Actual Procedures p ORIF Ankle Fracture, distal tibia and fibula with plates and screws(Right) - Charissa Pierre MD Surgical History (Last Reviewed 10/10/18 @ 16:56 by Madelyn Dias MD) No pertinent past surgical history (Acute) Medical History (Last Updated 10/10/18 @ 21:34 by Vaibhav Kapoor MD) GERD (gastroesophageal reflux disease) (Chronic) Depression (Chronic) Herpes encephalitis (Resolved) Impaired fasting glucose (Chronic) Stroke (Suspected) Hyperlipidemia (Chronic) Hypertension (Chronic) Chronic pain (Chronic) Pulmonary fibrosis (Chronic) Physical Therapy Inpatient Evaluation/Re-Eval M1 PT/OT-IP Prior Functional Status Start: 10/12/18 13:17 Freq: NEEDED Status: Active Protocol: Document 10/12/18 11:50 AB (Rec: 10/12/18 13:34 AB [id number]) Medical Review Prior Functional Status Medical History Reviewed Yes Communication able to make needs known Mobility and Gait pt stated that she is modified independent with all mobilities and ambulation using 4WW but occasionally uses a manual w/c for mobility depending on pain and fatigue level. Social History Household Members none Living Arrangements Assisted Living Number of Stairs To Enter/Railing? pt lives at [facility] Home Environment High Toilet Walk in Shower Home Equipment Four Wheel Walker Straight Cane Manual Wheelchair Shower Seat with Backrest Bed Rails Grab Bars Near Toilet Grab Bars In Shower Employment Status Retired M2 PT-IP Current Condition Start: 10/12/18 13:17 Freq: NEEDED Status: Active Protocol: Document 10/12/18 11:50 AB (Rec: 10/12/18 13:34 AB [id number]) Physical Therapy Current Condition Current Condition Evaluation Date 10/12/18 Treatment Diagnosis R trimalleolar fx s/p ORIF; difficulty in walking Onset Date 10/11/18 Precautions Brace RLE on soft cast Weight Bearing Status Weight Bearing Status Non-Weight Bearing Allowed Weight Bearing Amount (enter % NWB RLE or #) (%) M3 PT-IP Subjective Start: 10/12/18 13:17 Freq: NEEDED Status: Active Protocol: Document 10/12/18 11:50 AB (Rec: 10/12/18 13:34 AB [id number]) Subjective Physical Therapy Visit Type Type Initial Evaluation Visit Start Time 11:50 Visit Stop Time 12:24 Total Visit Minutes 34 Number of GRADUATE INTERN Visits 0 Physical Therapy Visit Comments Patient Comments pt agreeable to do PT Therapy Pain Assessment Pain Present Pain Present Denied Pain M4 PT-IP Mobility and Gait Start: 10/12/18 13:17 Freq: NEEDED Status: Active Protocol: Document 10/12/18 11:50 AB (Rec: 10/12/18 13:34 AB [id number]) PT-Bed Mobility Assessment Supine to Sit Supine to Sit Standby Assistance PT-Transfer Assessment Sit to and From Stand Sit to and from Stand Moderate Assistance 2 Person Assistance Use of Upper Extremities Equipment Transfer Assistive Device Gait Belt Front Wheeled Walker Orthotic/Prosthetic Devices or Brace: Yes Transfers Transfer Destination Chair Transfer Technique Stand Pivot Transfer Ability Level of Assist Moderate Assistance 2 Person Assistance Use of Upper Extremities Comments Mobility Comments pt completed sit <>stand x 2 attempts. pt was unable to maintain NWB on RLE with first attempt. educated pt again with NWB precautions and PT demonstrated on how to get up. pt completed sit to stand mod A x 2 and max cues. pt completed stand pivot transfer using FWW to the chair mod A x 2 and cues. positioned pt on the chair. call light and table placed within reach. PT-Balance Assessment Sitting Balance and Reactions Static Sitting Balance Ability Good Dynamic Sitting Balance Ability Good Standing Balance and Reactions Static Standing Balance Ability Fair Dynamic Standing Balance Ability Poor Device Used FWW M5 PT-IP Objective Assessments Start: 10/12/18 13:17 Freq: NEEDED Status: Active Protocol: Document 10/12/18 11:50 AB (Rec: 10/12/18 13:34 AB [id number]) Orientation Orientation/Cognition Level of Alertness Alert Orientation Name Age Birthday Safety Awareness Decreased Safety Awareness Memory Description Short Term Impaired Snf Impaired Gross Range of Motion Lower Extremity ROM Assessment Bilaterally Impaired Impairments B ankle DF tightness R knee flexion : ~ 70 deg Strength Lower Extremity Strength Assessment Right Impaired Hip 4-/5 Knee 3+/5 Coordination Assessment Gross Coordination Gross Coordination WNL Sensation Assessment Sensation Gross Sensation WNL Muscle Tone Muscle Tone WNL Yes M6 PT-IP Treatment Start: 10/12/18 13:17 Freq: NEEDED Status: Active Protocol: Document 10/12/18 11:50 AB (Rec: 10/12/18 13:34 AB [id number]) Physical Therapy Treatment Education Education Provided Precautions Weight Bearing Status Safety M7 PT-IP Assessment and Plan Start: 10/12/18 13:17 Freq: NEEDED Status: Active Protocol: Document 10/12/18 11:50 AB (Rec: 10/12/18 13:34 AB [id number]) PT Summary Assessment and Plan Potential Rehabilitation Potential Good Status of Condition at Evaluation Stable Summary Impairments Pain ROM Strength Balance Cognition Bed Mobility Transfers Gait Activity Tolerance Assessment Summary pt requiring mod A x 2 and max cues. pt with confusion and requires cues with all tasks. pt is NWB on RLE. pt will require SNF rehab to improve strength and mobility. Goals Bed Mobility Goal Standby Assistance Transfer Goal Standby Assistance Front Wheeled Walker Gait Goal Standby Assistance Front Wheel Walker Gait Distance 50 Days to Meet Goals 10 Frequency of Treatment Frequency Of Treatment Twice a Day Treatment Plan Physical Therapy Treatment Plan Bed Mobility Training Transfer Training Gait Training Therapeutic Exercise Balance Retraining Post Op Education Discharge Planning Hot or Cold Pack Neuromuscular Re-ed Coordination Retraining Manual Therapy Recommendations To Nursing Amount of Assist Needed 2 Person Assist Discharge Recommendations PT Discharge Recommendations SNF Rehab
--- NOTE | 2018-10-12 13:45 | PT.IPTN ---
Current Diagnoses Displaced trimalleolar fracture of right lower leg, initial encounter for closed fracture (10/10/18) Surgery Performed Operation Date: 10/11/18 16:15 Actual Procedures p ORIF Ankle Fracture, distal tibia and fibula with plates and screws(Right) - Charissa Pierre MD Physical Therapy Treatment Note M2 PT-IP Current Condition Start: 10/12/18 13:17 Freq: NEEDED Status: Active Protocol: Document 10/12/18 11:50 AB (Rec: 10/12/18 13:34 AB [id number]) Physical Therapy Current Condition Current Condition Evaluation Date 10/12/18 Treatment Diagnosis R trimalleolar fx s/p ORIF; difficulty in walking Onset Date 10/11/18 Precautions Brace RLE on soft cast Weight Bearing Status Weight Bearing Status Non-Weight Bearing Allowed Weight Bearing Amount (enter % NWB RLE or #) (%) M3 PT-IP Subjective Start: 10/12/18 13:17 Freq: NEEDED Status: Active Protocol: Document 10/12/18 13:45 GGD (Rec: 10/12/18 15:58 GGD [id number]) Subjective Physical Therapy Visit Type Type Treatment Note Visit Start Time 13:25 Visit Stop Time 14:45 Total Visit Minutes 20 Number of SEQUINS WINDER Visits 1 Physical Therapy Visit Comments Patient Comments Pt would like to use the BSC. M4 PT-IP Mobility and Gait Start: 10/12/18 13:17 Freq: NEEDED Status: Active Protocol: Document 10/12/18 13:45 GGD (Rec: 10/12/18 15:58 GGD [id number]) PT-Bed Mobility Assessment Sit to Supine Sit to Supine Standby Assistance Scooting Scooting to Edge of Bed Standby Assistance PT-Transfer Assessment Sit to and From Stand Sit to and from Stand Moderate Assistance 2 Person Assistance Use of Upper Extremities Equipment Transfer Assistive Device Gait Belt Front Wheeled Walker Orthotic/Prosthetic Devices or Brace: Yes Transfers Transfer Destination Bed Bedside Commode Transfer Technique Stand Pivot Transfer Ability Level of Assist Moderate Assistance 2 Person Assistance Use of Upper Extremities Comments Mobility Comments Pt needed cues for NWB with sit <> stand M5 PT-IP Objective Assessments Start: 10/12/18 13:17 Freq: NEEDED Status: Active Protocol: Document 10/12/18 11:50 AB (Rec: 10/12/18 13:34 AB [id number]) Orientation Orientation/Cognition Level of Alertness Alert Orientation Name Age Birthday Safety Awareness Decreased Safety Awareness Memory Description Short Term Impaired Nursing Home Impaired Gross Range of Motion Lower Extremity ROM Assessment Bilaterally Impaired Impairments B ankle DF tightness R knee flexion : ~ 70 deg Strength Lower Extremity Strength Assessment Right Impaired Hip 4-/5 Knee 3+/5 Coordination Assessment Gross Coordination Gross Coordination WNL Sensation Assessment Sensation Gross Sensation WNL Muscle Tone Muscle Tone WNL Yes M6 PT-IP Treatment Start: 10/12/18 13:17 Freq: NEEDED Status: Active Protocol: Document 10/12/18 13:45 GGD (Rec: 10/12/18 15:58 GGD [id number]) Physical Therapy Treatment Education Education Provided Precautions Weight Bearing Status M7 PT-IP Assessment and Plan Start: 10/12/18 13:17 Freq: NEEDED Status: Active Protocol: Document 10/12/18 13:45 GGD (Rec: 10/12/18 15:58 GGD [id number]) PT Summary Assessment and Plan Summary Assessment Summary Pt needing Mod A x 2 for transfers and sit to stand. She needs cue for NWB on RLE. She unable to take functional steps for gait. Pt will need SNF to improve strength and functional mobility. Frequency of Treatment Frequency Of Treatment Twice a Day Treatment Plan Physical Therapy Treatment Plan Bed Mobility Training Transfer Training Gait Training Therapeutic Exercise Balance Retraining Post Op Education Discharge Planning Hot or Cold Pack Neuromuscular Re-ed Coordination Retraining Manual Therapy Recommendations To Nursing Amount of Assist Needed 2 Person Assist Discharge Recommendations PT Discharge Recommendations SNF Rehab
[2018-10-12 16:00] VITALS: BP 103/62; PULSE 106; RESP 18; TEMP 37.6; O2SAT 99
--- NOTE | 2018-10-12 16:10 | CM.DPNOTE ---
[facility] has accepted pt for admission Monday, per JULISSA Crouch's request (w/encouragement also from Tonia ureña [facility] re: safe DCP) auth through [facility]/[employer] Medicare in place; Auth # [id number]. More detailed note to follow Monday. DAMEON
[2018-10-12] MEDS: WARFARIN 5 MG TABLET PO (17:00)
--- NOTE | 2018-10-12 19:11 | PC.NURSE ---
Addendum entered by Mandy Driver R.N. 10/12/18 22:54: Original Note: Pt reports pain as none. On scheduled Tylenol. Right toes ankle with TOURIST INFORMATION OFFICER intact. Pt does report right foot feels different then before surgery. Able to wiggle right toes, lifts leg off bed about 1inch. Pt is non weight bearing to RLE x 1 month. Void adequate amount using bedpan, up to BSC with 3 person assist. Pt alert and oriented x2, thought she lost her necklace and ring, able to reorient to jewelry and situation. Reinforded fall precautions and risk of falls while in hospital.
[2018-10-12 20:00] VITALS: BP 153/70; PULSE 102; RESP 17; TEMP 37.6; O2SAT 98
[2018-10-12] MEDS: DOXEPIN 25 MG CAPSULE 100 MG PO (20:54)
[2018-10-12] MEDS: GABAPENTIN 600 MG TABLET PO (20:55)
[2018-10-12] MEDS: POTASSIUM CHLORIDE 10 MEQ TAB PO (20:55)
[2018-10-12] MEDS: ATORVASTATIN 20 MG TABLET 80 MG PO (20:56)
[2018-10-12] MEDS: SODIUM CHLORIDE 0.9% FLUSH 10 ML IV (20:57)
[2018-10-13] VITALS: BP 125/79; PULSE 115; RESP 18; TEMP 36.4; O2SAT 96
[2018-10-13 04:10] VITALS: BP 128/77; PULSE 98; RESP 18; TEMP 36.2; O2SAT 95
[2018-10-13 05:32] LABS: INR 1.1 (0.9-1.3); Prothrombin Time 12.5 SECONDS (10.1-12.7)
[2018-10-13 05:34] LABS: Add Manual Diff / Slide Review NO; Basophils Absolute Auto 0 /uL (0-100); Basophils Percent Auto 0.1 % (0-2); Eosinophils Absolute Auto 0 /uL (0-450); Hematocrit 30.1 % (36-46); Hemoglobin 10.1 g/dL (12.0-16.0); Lymphocytes Absolute Auto 1700 /uL (1100-4500); Lymphocytes Percent Auto 10.3 % (25-40); Mean Corpuscular HGB Conc 33.6 % (30-36); Mean Corpuscular Hemoglobin 30.1 PG (26-34); Mean Corpuscular Volume 89.4 fL (80-100); Monocytes Absolute Auto 1100 /uL (0-900); Monocytes Percent Auto 6.8 % (3-14); Neutrophils Absolute Auto 13500 /uL (1500-7000); Neutrophils Percent Auto 82.8 % (50-75); Platelet Count 281 X10^3/uL (150-400); Red Blood Cell Count 3.37 X10^6/uL (4.0-5.2); Red Cell Distribution Width 17.1 % (11.6-14.8); White Blood Cell Count 16.4 X10^3/uL (4.5-11.0)
[2018-10-13 06:06] LABS: Hemoglobin A1C% w Est Avg Glu 5.8 % (4.0-6.0)
[2018-10-13] MEDS: PANTOPRAZOLE 20 MG TABLET PO (06:31)
[2018-10-13 08:00] VITALS: BP 129/78; PULSE 100; RESP 18; TEMP 36.4; O2SAT 97
[2018-10-13] MEDS: ACETAMINOPHEN 325 MG TABLET 975 MG PO (08:45)
[2018-10-13] MEDS: GABAPENTIN 300 MG CAPSULE PO (08:45)
[2018-10-13] MEDS: POLYETHYLENE GLYCOL 3350 17 GM POWD.PACK PO (08:45)
[2018-10-13] MEDS: ESCITALOPRAM 10 MG TABLET 20 MG PO (08:46)
[2018-10-13] MEDS: dilTIAZem CD 180 MG CAP PO (08:46)
[2018-10-13] MEDS: METOPROLOL ER 50 MG TABLET PO (08:46)
[2018-10-13] MEDS: FUROSEMIDE 20 MG TABLET PO (08:47)
[2018-10-13] MEDS: NYSTATIN POWDER 15GM 1 APPLIC TOP (08:47)
[2018-10-13] MEDS: SODIUM CHLORIDE 0.9% FLUSH 10 ML IV (08:48)
--- NOTE | 2018-10-13 09:30 | PT.IPTN ---
Current Diagnoses Displaced trimalleolar fracture of right lower leg, initial encounter for closed fracture (10/10/18) Surgery Performed Operation Date: 10/11/18 16:15 Actual Procedures p ORIF Ankle Fracture, distal tibia and fibula with plates and screws(Right) - Charissa Pierre MD Physical Therapy Treatment Note M2 PT-IP Current Condition Start: 10/12/18 13:17 Freq: NEEDED Status: Active Protocol: Document 10/12/18 11:50 AB (Rec: 10/12/18 13:34 AB [id number]) Physical Therapy Current Condition Current Condition Evaluation Date 10/12/18 Treatment Diagnosis R trimalleolar fx s/p ORIF; difficulty in walking Onset Date 10/11/18 Precautions Brace RLE on soft cast Weight Bearing Status Weight Bearing Status Non-Weight Bearing Allowed Weight Bearing Amount (enter % NWB RLE or #) (%) M3 PT-IP Subjective Start: 10/12/18 13:17 Freq: NEEDED Status: Active Protocol: Document 10/13/18 09:30 GGD (Rec: 10/13/18 11:44 GGD [id number]) Subjective Physical Therapy Visit Type Type Treatment Note Visit Start Time 09:10 Visit Stop Time 09:30 Total Visit Minutes 20 Number of FINANCIAL LEGAL ASSISTANT Visits 2 Physical Therapy Visit Comments Patient Comments Pt needs to use the BSC. Therapy Pain Assessment Pain When Pain Assessed At Rest Pain Present Pain Present Pain Reported Location Right Ankle Scale Used didn't rate pain M4 PT-IP Mobility and Gait Start: 10/12/18 13:17 Freq: NEEDED Status: Active Protocol: Document 10/13/18 09:30 GGD (Rec: 10/13/18 11:44 GGD [id number]) PT-Bed Mobility Assessment Supine to Sit Supine to Sit Standby Assistance PT-Transfer Assessment Sit to and From Stand Sit to and from Stand Moderate Assistance 2 Person Assistance Use of Upper Extremities Equipment Transfer Assistive Device Gait Belt Front Wheeled Walker Orthotic/Prosthetic Devices or Brace: Yes Transfers Transfer Destination Bed Bedside Commode Transfer Technique Stand Pivot Transfer Ability Level of Assist Minimal Assistance 2 Person Assistance Use of Upper Extremities Comments Mobility Comments Pt needed cues for NWB with sit <> stand M5 PT-IP Objective Assessments Start: 10/12/18 13:17 Freq: NEEDED Status: Active Protocol: Document 10/12/18 11:50 AB (Rec: 10/12/18 13:34 AB [id number]) Orientation Orientation/Cognition Level of Alertness Alert Orientation Name Age Birthday Safety Awareness Decreased Safety Awareness Memory Description Short Term Impaired Senior Care Impaired Gross Range of Motion Lower Extremity ROM Assessment Bilaterally Impaired Impairments B ankle DF tightness R knee flexion : ~ 70 deg Strength Lower Extremity Strength Assessment Right Impaired Hip 4-/5 Knee 3+/5 Coordination Assessment Gross Coordination Gross Coordination WNL Sensation Assessment Sensation Gross Sensation WNL Muscle Tone Muscle Tone WNL Yes M6 PT-IP Treatment Start: 10/12/18 13:17 Freq: NEEDED Status: Active Protocol: Document 10/13/18 09:30 GGD (Rec: 10/13/18 11:44 GGD [id number]) Physical Therapy Treatment Education Education Provided Precautions Weight Bearing Status M7 PT-IP Assessment and Plan Start: 10/12/18 13:17 Freq: NEEDED Status: Active Protocol: Document 10/13/18 09:30 GGD (Rec: 10/13/18 11:44 GGD [id number]) PT Summary Assessment and Plan Summary Assessment Summary Pt improving with weight bearing. She did need assist for FWW management and right LE weight bearing with transfers. Pt will need SNF rehab. Frequency of Treatment Frequency Of Treatment Twice a Day Treatment Plan Physical Therapy Treatment Plan Bed Mobility Training Transfer Training Gait Training Therapeutic Exercise Balance Retraining Post Op Education Discharge Planning Hot or Cold Pack Neuromuscular Re-ed Coordination Retraining Manual Therapy Recommendations To Nursing Amount of Assist Needed 2 Person Assist Discharge Recommendations PT Discharge Recommendations SNF Rehab
--- NOTE | 2018-10-13 10:29 | PM.PNPO.1 ---
Subjective Date Patient Seen: 10/13/18 Time Patient Seen: 10:29 Interval history: POD #2 s/p right ankle trimalleolar fracture/dislocation with ankle ORIF and syndesmotic screws by Dr. Pierre. She has remained stable postoperatively. Nonweightbearing right leg. Patient was at [facility] prior to coming to the hospital. Doing well today. No complaints. Exam Vital Signs (past 8 hours): - 10/13/18 04:10 10/13/18 08:00 Temperature 97.2 F L 97.5 F L Pulse Rate 98 H 100 H Respiratory Rate 18 18 Blood Pressure 128/77 129/78 Pulse Oximetry 95 97 Oxygen Delivery Method Nasal Cannula Oxygen Flow Rate 3 Narrative Exam Narrative: Patient is sitting at bedside chair in no acute distress. Right leg splint is well fitting. She complains of some tingling of the big toe. She has sensation in her other toes. Toes are pink and well perfused. Brisk capillary refill. Left calf is soft, nontender, and compressible. Objective Labs Result Diagrams: 10/13/18 04:58 10/12/18 05:35 Labs: Laboratory Results - last 24 hr 10/12/18 10/13/18 10/13/18 11:02 04:58 04:58 WBC 16.4 H RBC 3.37 L Hgb 10.1 L Hct 30.1 L MCV 89.4 MCH 30.1 MCHC 33.6 RDW 17.1 H Plt Count 281 Neut % (Auto) 82.8 H Lymph % (Auto) 10.3 L [place] % (Auto) 6.8 Eos % (Auto) 0.0 L Baso % (Auto) 0.1 Neut # (Auto) 71784 H Lymph # (Auto) 1700 [place] # (Auto) 1100 H Eos # (Auto) 0 Baso # (Auto) 0 PT 12.5 D INR 1.1 ABG pH 7.45 ABG pCO2 32.4 L ABG pO2 74 L ABG HCO3 22 ABG Total CO2 23 ABG O2 Saturation 95 ABG Base Excess -2.0 FiO2 0.21 Hemoglobin A1c 10/13/18 04:58 WBC RBC Hgb Hct MCV MCH MCHC RDW Plt Count Neut % (Auto) Lymph % (Auto) [place] % (Auto) Eos % (Auto) Baso % (Auto) Neut # (Auto) Lymph # (Auto) [place] # (Auto) Eos # (Auto) Baso # (Auto) PT INR ABG pH ABG pCO2 ABG pO2 ABG HCO3 ABG Total CO2 ABG O2 Saturation ABG Base Excess FiO2 Hemoglobin A1c 5.8 Assessment & Plan Post-op Postoperative Procedures Operation Date: 10/11/18 16:15 Actual Procedures Side Surgeon p ORIF Ankle Fracture, distal tibia and fibula with plates and screws Right Charissa Pierre MD Patient remains orthopedically stable. She will remain in her lower leg splint for 10-14 days postop and will need a postop appointment at Orthopedic office at that time to remove the splint and taking the sutures out and obtain x-rays and place an lower leg cast or boot. She will be nonweightbearing for 6 weeks postop and then will need to be seen by Dr. Pierre to schedule for removal of syndesmosis screws. Discharge per hospitalist team. Quality VTE Deep Vein Thrombosis/Pulmonary Embolism Present on Admission: No
--- NOTE | 2018-10-13 11:23 | P.DS_ITS ---
History of Present Illness Date Patient Seen: 10/10/18 Chief complaint: Fall Narrative: Written by Dr. Kapoor: 83-year-old female resident of assisted living presents with acute fracture of her ankle. The patient reportedly had a ground level fall and injured the ankle. When questioned the patient is uncertain how she fell she has a little bit confused on my interview with her. She told me she was not using her walker but the ER note said that she was using the walker. None the last she did fall and did injure her ankle. Other than the pain in the ankle she has no other complaints. Discharge Providers Date of admission: 10/10/18 19:24 Discharge Date: 10/13/18 Primary care physician: Carissa Chen MD Consults: 10/10/18 21:11 Consult to Physician Routine Comment: Consulting Provider: Charissa Pierre Reason for consultation: trimalleolar fracture Has provider been notified: Yes Consult to Neighborhood Coordinator Routine Comment: 10/11/18 18:15 Consult to Discharge Planning Routine Comment: Consult to Physical Therapy Evaluate & Treat Comment: Physician Instructions: Evaluate and Treat Consult to Respiratory Therapy Evaluate & Treat Comment: Physician Instructions: Evaluate and treat 10/12/18 09:34 Consult to Occupational Therapy Evaluate & Treat Comment: Physician Instructions: Evaluate and treat Discharge provider: Janell Iniguez DO Summary Discharge Diagnosis: 1. Mechanical ground level fall with acute pathological right trimalleolar fracture, status post ORIF, present on admission. Active. 2. Chronic atrial fibrillation on chronic anticoagulation with warfarin, present on admission. Stable. 3. Hypertension, chronic, present on admission. Stable. 4. Depression, chronic, present on admission. Stable. 5. Dementia without behavioral disturbance, present on admission. Stable. 6. GERD, chronic, present on admission. Stable. 7. Chronic back pain, present on admission. Stable. 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 1. Mechanical ground level fall with acute pathological right trimalleolar fra cture, status post ORIF, present on admission. Active. -Patient presented after mechanical ground level fall with right ankle pain and found to have right trimalleolar fracture status post ORIF. -Left ankle x-ray demonstrated right distal fibular fracture and medial malleolar fracture with disruption of ankle mortise. -Continued PT and OT. -Continued scheduled Tylenol 975 mg 3 times daily. Discharged with prescription of oxycodone for breakthrough pain, however, patient has not needed any narcotic for pain control. -Consulted orthopedic surgery, Dr. Pierre, who performed ORIF on 10/11. Recommend ations are lower leg splint for 10-14 days postop and follow-up at Orthopedic office in 2 weeks to remove the splint and sutures and obtain x-rays and place in lower leg cast or boot. She will be non-weightbearing for 6 weeks postop and then will need to be seen by Dr. Pierre for removal of syndesmosis screws. -Recommend workup and treatment of osteoporosis in the outpatient setting after recovered from acute ankle fracture. 2. Chronic atrial fibrillation on chronic anticoagulation with warfarin, present on admission. Stable. -Initial INR of 3.4 on admit. Reversed with vitamin K and FFP prior to surgery. -Restarted home warfarin schedule 5 mg daily at bedtime. Continue to monitor INR closely and adjust warfarin as necessary as outpatient. Current INR 1.1. 3. Hypertension, chronic, present on admission. Stable. -Continued home medications including aspirin 81 mg daily, atorvastatin 80 mg daily at bedtime, diltiazem 180 mg daily, furosemide 20 mg daily, and metoprolol succinate 50 mg daily. 4. Depression, chronic, present on admission. Stable. -Continued escitalopram 20 mg daily and doxepin 100 mg daily at bedtime.. 5. Dementia without behavioral disturbance, present on admission. Stable. -Confirmed the patient has mild dementia at baseline without behavioral disturbance per AURELIA. -Patient is intermittently confused and oriented to person only. Currently at baseline. 6. GERD, chronic, present on admission. Stable. -Continued omeprazole 20 mg daily. 7. Chronic back pain, present on admission. Stable. -Current pain control regimen with gabapentin only. She had previously been on hydrocodone but was discontinued several months ago. -Continued gabapentin 300 mg twice daily and 600 mg daily at bedtime. Status at Discharge Cognitive/behavioral status at discharge: at baseline, confused Functional status at discharge: uses cane/walker Overall status at discharge: patient is not back to baseline Exam Vital Signs (past 8 hours): - 10/13/18 04:10 10/13/18 08:00 Temperature 97.2 F L 97.5 F L Pulse Rate 98 H 100 H Respiratory Rate 18 18 Blood Pressure 128/77 129/78 Pulse Oximetry 95 97 Oxygen Delivery Method Nasal Cannula Oxygen Flow Rate 3 Narrative Exam Narrative: General: Elderly female sitting on bedside commode and in no acute distress, well-developed, well-nourished, baseline dementia with mild confusion but without behavioral disturbance and appropriately interactive otherwise. HEENT: Normocephalic, atraumatic. External ears without defect. Pupils equal, round, and reactive to light. Anicteric sclerae, moist conjunctivae, and no lid lag. Oropharynx free of erythema and cobble stoning with moist mucosa. Neck: Supple with full range of motion. No jugular venous distension. No lymphadenopathy or thyromegaly. Cardiovascular: Irregularly irregular, normal rate, without murmurs, rubs, or gallops appreciated Pulmonary: Diminished throughout but clear to auscultation bilaterally without crackles, wheezes, or rhonchi. Normal respiratory effort with no use of accessory muscles. Abdomen: Soft, bowel tones present. nontender, nondistended. No hepa tosplenomegaly or masses appreciated. Extremities: No clubbing, cyanosis. Mild nonpitting edema of lower extemities. Splint with bandage in place on right foot C/D/I. Skin: Normal temperature, turgor, and texture; no rash, ulcers, or subcutaneous nodules appreciated. Neurological: Cranial nerves grossly intact. Psychiatric: Normal mood and affect. Alert and oriented to person only. Baseline dementia with mild confusion but without behavioral disturbance. Objective Labs Result Diagrams: 10/13/18 04:58 10/12/18 05:35 Labs: Laboratory Results - last 24 hr 10/12/18 10/13/18 10/13/18 11:02 04:58 04:58 WBC 16.4 H RBC 3.37 L Hgb 10.1 L Hct 30.1 L MCV 89.4 MCH 30.1 MCHC 33.6 RDW 17.1 H Plt Count 281 Neut % (Auto) 82.8 H Lymph % (Auto) 10.3 L [place] % (Auto) 6.8 Eos % (Auto) 0.0 L Baso % (Auto) 0.1 Neut # (Auto) 90772 H Lymph # (Auto) 1700 [place] # (Auto) 1100 H Eos # (Auto) 0 Baso # (Auto) 0 PT 12.5 D INR 1.1 ABG pH 7.45 ABG pCO2 32.4 L ABG pO2 74 L ABG HCO3 22 ABG Total CO2 23 ABG O2 Saturation 95 ABG Base Excess -2.0 FiO2 0.21 Hemoglobin A1c 10/13/18 04:58 WBC RBC Hgb Hct MCV MCH MCHC RDW Plt Count Neut % (Auto) Lymph % (Auto) [place] % (Auto) Eos % (Auto) Baso % (Auto) Neut # (Auto) Lymph # (Auto) [place] # (Auto) Eos # (Auto) Baso # (Auto) PT INR ABG pH ABG pCO2 ABG pO2 ABG HCO3 ABG Total CO2 ABG O2 Saturation ABG Base Excess FiO2 Hemoglobin A1c 5.8 Discharge Plan Discharge Plan Patient Disposition: SNF Transfer to: [facility] Under care of provider: Dr. Chun Transportation: Facility vehicle Labs: INR in 2-3 days and UA if symptomatic I certify the postop hospital senior care care is medically necessary on a continuing basis for any conditions for which he/ she received care during this hospitalization.: Yes The receiving facility has agreed to accept transfer and provide medical treatment.: Yes Discharge Med Rec/Prescriptions Prescriptions: New polyethylene glycol 3350 17 gram Powder In Packet 17 gm PO DAILY Qty: 1 RF: 0 bisacodyl 10 mg Suppository 10 mg NE PRN PRN (Reason: Constipation) Qty: 10 RF: 0 oxycodone 5 mg Tablet 5 mg PO Q4-8H Qty: 20 RF: 0 Continued atorvastatin 80 mg Tablet 80 mg PO QPM RF: 0 gabapentin 300 mg Capsule 300 mg PO BID RF: 0 metoprolol succinate 50 mg tablet extended release 24 hr 50 mg PO DAILY RF: 0 aspirin 81 mg Tablet,Delayed Release (Dr/Ec) 81 mg PO DAILY RF: 0 gabapentin 600 mg Tablet 600 mg PO BEDTIME RF: 0 diltiazem HCl 180 mg capsule,extended release 24hr 180 mg PO DAILY RF: 0 nystatin 100,000 unit/gram Powder 1 applic TOPICAL BID RF: 0 escitalopram oxalate 20 mg tablet 20 mg PO DAILY RF: 0 potassium chloride 10 mEq Tablet Extended Release 10 meq PO QPM RF: 0 omeprazole 20 mg capsule,delayed release(DR/EC) 20 mg PO DAILY RF: 0 warfarin 5 mg Tablet 5 mg PO QPM RF: 0 furosemide 20 mg Tablet 20 mg PO DAILY RF: 0 Amitiza 24 mcg Capsule 24 mcg PO DAILY RF: 0 doxepin 100 mg Capsule 100 mg PO BEDTIME RF: 0 Changed acetaminophen 325 mg Tablet 975 mg PO TID Qty: 0 RF: 0 Discontinued naproxen sodium 220 mg Tablet 220 - 440 mg PO Q8H PRN (Reason: pain) RF: 0 Follow up/Referrals: Charissa Pierre MD [Physician] - (2 weeks) Carissa Chen MD [Primary Care Provider] - Discharge Health Status Brief summary of current health status: 83-year-old female with a past medical history significant for hypertension, hyperlipidemia, pulmonary fibrosis, chronic pain, CVA with residual mild dementia without behavioral disturbance, depression, GERD and prediabetes who presented after ground level fall with left trimalleolar fracture status post ORIF with need for continued physical and occupational rehabilitation. Precautions: [place] Provider Discharge Instructions Diet: Diet as Tolerated, Low-fat, Low-sodium and Low-cholesterol Activity: She will remain in her lower leg splint for 10-14 days postop and will need a postop appointment at Orthopedic office at that time to remove the splint and taking the sutures out and obtain x-rays and place an lower leg cast or boot. She will be nonweightbearing for 6 weeks postop and then will need to be seen by Dr. Pierre to schedule for removal of syndesmosis screws. [facility] Reason for rehabilitation: Post-operative therapy Rehab type: Physical therapy and Occupational therapy Visit Report/Discharge Packet Instructions: Ankle Fracture, DI for Open Reduction Internal Fixation Surgery Discharge Data Primary Care Provider: Carissa Chen Attending Provider: Janell Iniguez Admit Date/Time: 10/10/18 19:24 Quality VTE Deep Vein Thrombosis/Pulmonary Embolism Present on Admission: No
--- NOTE | 2018-10-13 11:55 | OT.IP.EVAL ---
Current Diagnoses Displaced trimalleolar fracture of right lower leg, initial encounter for closed fracture (10/10/18) Surgery Performed Operation Date: 10/11/18 16:15 Actual Procedures p ORIF Ankle Fracture, distal tibia and fibula with plates and screws(Right) - Charissa Pierre MD Past Medical History (Last Updated 10/10/18 @ 21:34 by Vaibhav Kapoor MD) GERD (gastroesophageal reflux disease) (Chronic) Depression (Chronic) Herpes encephalitis (Resolved) Impaired fasting glucose (Chronic) Stroke (Suspected) Hyperlipidemia (Chronic) Hypertension (Chronic) Chronic pain (Chronic) Pulmonary fibrosis (Chronic) Surgical History (Last Reviewed 10/10/18 @ 16:56 by Madelyn Dias MD) No pertinent past surgical history (Acute) Occupational Therapy Inpatient Evaluation/Re-Eval M1 PT/OT-IP Prior Functional Status Start: 10/13/18 11:34 Freq: NEEDED Status: Active Protocol: Document 10/13/18 11:34 [facility] (Rec: 10/13/18 11:55 [facility] [id number]) Medical Review Prior Functional Status Medical History Reviewed Yes Communication able to make needs known Mobility and Gait pt stated that she is modified independent with all mobilities and ambulation using 4WW but occasionally uses a manual w/c for mobility depending on pain and fatigue level. Activities of Daily Living and IADL's Pt states able to do all ADL's and and has someone stand by for showering and assistance for medication needs. Social History Household Members none Living Arrangements House Number of Stairs To Enter/Railing? pt lives at [facility] Environment High Toilet Walk in Shower Home Equipment Four Wheel Walker Straight Cane Manual Wheelchair Shower Seat with Backrest Bed Rails Grab Bars Near Toilet Grab Bars In Shower Employment Status Retired M2 OT-IP Current Condition Start: 10/13/18 11:34 Freq: Status: Active Protocol: Document 10/13/18 11:34 [facility] (Rec: 10/13/18 11:55 [facility] [id number]) Occupational Therapy Current Condition Current Condition Evaluation Date 10/13/18 Treatment Diagnosis Right Trimalleolar fx s/p ORIF , weakness Diagnosis Onset Date 10/10/18 Weight Bearing Status Weight Bearing Status Non-Weight Bearing Allowed Weight Bearing Amount (enter % NWB bearing RLE or #) (%) M3 OT- IP Subjective and Pain Start: 10/13/18 11:34 Freq: Status: Active Protocol: Document 10/13/18 11:34 [facility] (Rec: 10/13/18 11:55 [facility] [id number]) OT- Subjective Occupational Therapy Visit Type Type Initial Evaluation Visit Start Time 09:00 Visit Stop Time 09:30 Total Visit Minutes 30 Occupational Therapy Visit Comments Patient Comments Pt wanting to use the BSC. OT Pain Assessment Pain When Pain Assessed At Rest Pain Present Pain Present Denied Pain M4 OT- IP ADL's Start: 10/13/18 11:34 Freq: Status: Active Protocol: Document 10/13/18 11:34 [facility] (Rec: 10/13/18 11:55 [facility] [id number]) OT AWX-Kcag-Gkzykoo General Evaluation Self-Feeding Ability Independent OT ADL-Grooming General Evaluation Grooming Ability Standby Assistance Areas Needing Assistance Retrieving/Set-up of Grooming Items Comments OT Grooming Comments Pt able to do after set-up while sitting in the recliner. OT ADL-Oral Care General Eval Oral Care Ability Independent OT ADL-Dressing General Eval Lower Body Dressing Ability Maximum Assistance Areas Needing Assistance Underpants/Brief Socks Comments OT Dressing Comments Pt MAX A for brief and sock. OT ADL-Toileting General Evaluation Toileting Ability Maximum Assistance Areas Needing Assistance Manage Clothing Perform Perineal Hygiene Devices Toileting Assistive Devices Commode Comments OT Toileting Comments Assist to stand HARMEET x2 with FWW while nursing assist for hygiene needs. M5 OT- IP IADL's Start: 10/13/18 11:34 Freq: Status: Active Protocol: Document 10/13/18 11:34 [facility] (Rec: 10/13/18 11:55 [facility] [id number]) OT-Instrumental Activities of Daily Living Medication Management Medication Management Caregiver Provides Supervision M6 OT- IP Functional Cognition Start: 10/13/18 11:34 Freq: Status: Active Protocol: Document 10/13/18 11:34 [facility] (Rec: 10/13/18 11:55 [facility] [id number]) Cognitive Factors Limiting Selfcare Function Cognitive Ability Level of Alertness Alert Patient Orientation Name Place Situation Attention Span Ability Capable of Focused Attention Capable of Sustained Attention Ability to Follow Commands Able to Follow One Step Commands Memory Description Short Term Impaired Safety Awareness Underestimates Need for Assistance Problem Solving Ability Needs Assist to Identify Solutions Cognitive Comments Cognitive Assessment Comments Pt able to follow one step commands, needing cues to follow RLE NWB status and safety to come to stand and sit. OT- Vision and Hearing OT- Hearing Assessment OT- Hearing Assessment WFL M7 OT- IP Mobility and Balance Start: 10/13/18 11:34 Freq: Status: Active Protocol: Document 10/13/18 11:34 [facility] (Rec: 10/13/18 11:55 [facility] [id number]) OT- Bed Mobility Assessment Supine to Sit Supine to Sit Assist Standby Assistance 1 Person Assistance OT-Transfer Assessment Sit to and From Stand Sit to and from Stand Moderate Assistance 2 Person Assistance Transfers Transfer Ability Moderate Assistance 2 Person Assistance Technique Transfer Destination Bed Bedside Commode Chair Devices Transfer Assistive Devices Gait Belt Front Wheeled Walker Comments Mobility Comments MODA X 2 one person to make sure following RLE NWB precaution , to steady pt and help to move FWW. OT- Balance Assessment Sitting Balance and Reactions Static Sitting Balance Ability Good Dynamic Sitting Balance Ability Fair M8 OT- IP Objective Assessments Start: 10/13/18 11:34 Freq: Status: Active Protocol: Document 10/13/18 11:34 [facility] (Rec: 10/13/18 11:55 [facility] [id number]) OT Gross Range of Motion Upper Extremity Range of Motion Assessment Right Impaired ROM Impairments RUE decreased at end ROM mainly due to IV in arm OT Strength Comments Strength Comments RUE 4-/5, LUE 4/5 M9 OT- IP Assessment and Plan Start: 10/13/18 11:34 Freq: Status: Active Protocol: Document 10/13/18 11:34 [facility] (Rec: 10/13/18 11:55 [facility] [id number]) OT Summary Assessment and Plan Potential Rehabilitation Potential Good Analytic Complexity at Evaluation Low Summary OT Impairments Pain Strength Balance Functional Cognition Functional Mobility Dressing Toileting Bathing Toilet Transfers Shower Transfers Progress Towards Goals Progressing Toward Goals Assessment Summary Pt low compelxity and main barrier is now pt is NWB for RLE and needing extensive assist for ADl's and functional mobility. Pt would benefit from skilled rehab prior to going home, Goals Dressing Goal Moderate Assistance Toileting Goal Moderate Assistance Toilet Transfer Goal Moderate Assistance Days to Meet Goals 5 Frequency of Treatment Frequency Of Treatment Once a Day Treatment Plan OT Treatment Plan ADL Training Functional Cognition Training Functional Mobility Patient/Family Education Discharge Planning Discharge Recommendations OT Discharge Recommendations SNF Rehab Home Equipment Needs Defer to SNF.
--- NOTE | 2018-10-13 12:10 | CM.DPC ---
Addendum entered by EMILY Rolon 10/13/18 13:37: Spoke w/Thomas, pt's son/DPOA, updated on DC today to [facility] and approval for SNF stay by [employer], secured yesterday by August at [facility]. Thomas agreeable. Reviewed IMM, verbal agreement. JW Original Note: DCP Cont: Patient is to be going to [facility] today. Went ahead and completed PASSR, have signed med list and prescription along with discharge summary completed. Faxed information over to [facility]. 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 Left son, Thomas, a message on his personal cell phone about milk pickup truck driver time. Nurse, Pooja, is aware. Gave her phone number to call report on. P: Patient is to be discharged today to [facility]. They will transport at approximately 1:00pm Elin Carrasquillo RN/Welder Assistant
--- NOTE | 2018-10-13 12:43 | PC.NURSE ---
Addendum entered by Pooja Abdalla R.N. 10/13/18 13:33: F - [facility] staff arrived, pt tsf to , has all belongings, including gold colored necklace and ring with stones, glasses, hurley, dentures, purse with her valuables returned, spoke to Dr. Iniguez prior to trans who req that [facility] staff perform inr in 2-3 days, info provided to RAMAN Cadena at [facility], also req that they monitor her for signs of any infection w/hx lung disease, discussed here given scheduled tylenol and preferrable to oxycodone. Original Note: AM NOTE - pt is alert, sitting upright in bed, naman diet, states a little discussed medication and given scheduled tylenol this am, hr irreg 110, given po diltiazem and po metoprolol, swallows medications w/o difficulty, miralax given this am, later phys therapy in and able stand and transfer to bs x 2 person w/NWB, voided and then to chair, able wiggle toes and lift her lle, adelaida wrap over splint cdi, toes are pink, pillow support for lle while in chair.
[2018-10-13 13:02] LABS: Procalcitonin 0.08 ng/mL (<0.5)
== END 2018-10-13 13:10 | DRG 494 ==
LOC: ED 18:57 → AC 19:26
PROVIDERS: Family Medicine; Internal Medicine; Orthopaedic Surgery Orthopaedic Surgery of the Spine; Admitting Provider Internal Medicine; Emergency Provider Emergency Medicine; PCP Internal Medicine; Visit Provider Internal Medicine
PROC: 0SSF04Z Reposition Right Ankle Joint with Internal Fixation Device, Open Approach (ICD-10-PCS; principal; 2018-10-11 16:15)
DX: M84.48XA Pathological fracture, other site, initial encounter for fracture (principal); I48.2 Chronic atrial fibrillation; Z79.01 Long term (current) use of anticoagulants; W18.30XA Fall on same level, unspecified, initial encounter; I10 Essential (primary) hypertension; I48.0 Paroxysmal atrial fibrillation; F32.9 Major depressive disorder, single episode, unspecified; F03.90 Unspecified dementia, unspecified severity, without behavioral disturbance, psychotic disturbance, mood disturbance, and anxiety; K21.9 Gastro-esophageal reflux disease without esophagitis; G89.29 Other chronic pain
CPT/HCPCS: 36415; 36430; 36591; 36600; 64450; 71045; 73600; 73610; 76000; 80053; 82805; 83036; 84145; 85025; 85610; 86850; 86870; 86900; 86901; 86927; 93005; 94760; 96374; 97162; 97165; 97530; 99283; 99284; P9016; J0690; J1100; J1170; J2704; J3010

== ENCOUNTER → 2018-12-07 07:16 | Outpatient (ROUT) | payer MEDICARE, SELFPAY ==
[2018-12-07 08:03] LABS: Alanine Aminotransferase 10 IU/L (9-52); Aspartate Aminotransferase 18 IU/L (14-36); BUN Creatinine Ratio 18.9 (6-22); Blood Urea Nitrogen 17 mg/dL (7-17); Calcium 9.3 mg/dL (8.4-10.2); Carbon Dioxide 28 mmol/L (22-32); Chloride 102 mmol/L (98-107); Cholesterol 92 mg/dL (140-199); Estimated Glomerular Filt Rate > 60.0 mL/min (>60); Glucose 111 mg/dL (80-110); HDL Cholesterol 46 mg/dL (40-60); HEMOLYSIS < 15 (0-50); LDL Cholesterol Calculated 32 mg/dL (<100); Potassium 4.4 mmol/L (3.4-5.1); Sodium 135 mmol/L (137-145); Triglycerides 68 mg/dL (35-150)
[2018-12-07 08:16] LABS: Vitamin D 25 Hydroxy (D3) 19.6 ng/mL (30.0-100.0)
== END ==
PROVIDERS: PCP Internal Medicine; Visit Provider Internal Medicine
DX: I10 Essential (primary) hypertension (principal); M85.80 Other specified disorders of bone density and structure, unspecified site; E78.5 Hyperlipidemia, unspecified
CPT/HCPCS: 36415; 80048; 80061; 82306; 84450; 84460

== ENCOUNTER → 2018-12-24 09:35 | Outpatient (ROUT) | payer MEDICARE, SELFPAY ==
[2018-12-24 10:47] LABS: Add Manual Diff / Slide Review NO; Basophils Absolute Auto 100 /uL (0-100); Basophils Percent Auto 0.9 % (0-2); Eosinophils Absolute Auto 300 /uL (0-450); Eosinophils Percent Auto 4.3 % (2-4); Hematocrit 36.6 % (36-46); Hemoglobin 12.2 g/dL (12.0-16.0); Lymphocytes Absolute Auto 1500 /uL (1100-4500); Lymphocytes Percent Auto 19.7 % (25-40); Mean Corpuscular HGB Conc 33.4 % (30-36); Mean Corpuscular Hemoglobin 28.8 PG (26-34); Mean Corpuscular Volume 86.5 fL (80-100); Monocytes Absolute Auto 400 /uL (0-900); Monocytes Percent Auto 5.4 % (3-14); Neutrophils Absolute Auto 5300 /uL (1500-7000); Neutrophils Percent Auto 69.7 % (50-75); Platelet Count 295 X10^3/uL (150-400); Red Blood Cell Count 4.24 X10^6/uL (4.0-5.2); Red Cell Distribution Width 14.3 % (11.6-14.8); White Blood Cell Count 7.6 X10^3/uL (4.5-11.0)
[2018-12-24 11:10] LABS: Erythrocyte Sedimentation Rate 28 MM/HR (0-20)
[2018-12-24 11:14] LABS: C-Reactive Protein Quant 0.6 mg/dL (<1.0)
== END ==
PROVIDERS: PCP Internal Medicine; Visit Provider Internal Medicine Medical Oncology
DX: M25.571 Pain in right ankle and joints of right foot (principal); E55.9 Vitamin D deficiency, unspecified
CPT/HCPCS: 36415; 82306; 85025; 85651; 86140

== ENCOUNTER → 2018-12-27 12:17 | Outpatient (CLI) | payer MEDICARE, SELFPAY ==
--- NOTE | 2018-12-27 | DI.CT.S_ITS ---
PROCEDURE: CT LE RT WO CON INDICATIONS: RIGHT ANKLE PAIN TECHNIQUE: Noncontrast 1-1.5 mm axial sections acquired from above the tibiotalar joint to the bottom of the calcaneus, with coronal and sagittal reformats. COMPARISON: None. FINDINGS: Image quality: Beam hardening artifacts are noted in distal fibular shaft and medial malleolus from fixation hardware. Bones: Patient is status post internal fixation of distal fibular shaft and medial malleolus. A fixation screw traversing the distal tibiofibular syndesmosis is also seen. There is widening of distal tibial fibula syndesmosis, measures up to 6 mm in width. Increased lucency around surgical screws traversing the syndesmosis as well as surgical screws traversing medial malleolus is seen suggestive of hardware loosening. Oblique fracture involving distal fibular shaft is seen with small amount of callus formation at fracture site. Partial bony union in near fixation screws are noted. Corticated margin along medial malleolus fracture site is seen with a small amount of bony union adjacent to the fixation screw. No other fracture or dislocation is seen. No gross bony erosive changes are noted. Soft tissues: There is suggestion of moderate amount of joint effusion. Soft tissue swelling and edema surrounding ankle joint is seen. No discrete drainable soft tissue fluid collection is noted. No gross intra-articular loose body. IMPRESSION: 1. Post ORIF changes in medial malleolus, distal fibula shaft and distal tibiofibular syndesmosis. Finding is concerning for hardware loosening in fixation hardware traversing the distal tibiofibular syndesmosis and medial malleolus. 2. Widened distal tibiofibular syndesmosis measures up to 6 mm in width. 3. Partial bony union at the distal fibular shaft fracture site and medial malleolus fracture site. 4. Soft tissue swelling and edema. Moderate amount of tibiotalar joint effusion. No gross intra-articular loose body. 5. No definite CT evidence of osteomyelitis. Dictated by: Kraig Landry M.D. on 12/27/2018 at 14:49 Approved by: Kraig Landry M.D. on 12/27/2018 at 14:53
== END ==
PROVIDERS: Family Provider Internal Medicine; PCP Internal Medicine; Visit Provider Orthopaedic Surgery Foot and Ankle Surgery
DX: M25.571 Pain in right ankle and joints of right foot (principal); M25.471 Effusion, right ankle; S82.431D Displaced oblique fracture of shaft of right fibula, subsequent encounter for closed fracture with routine healing
CPT/HCPCS: 73700

== ENCOUNTER 2019-01-09 07:19 | Day surgery (SDC) | payer MEDICARE, SELFPAY ==
[2019-01-01 08:09] VITALS: BMI 34.0
[2019-01-07 11:53] VITALS: BMI 34.0
[2019-01-09] VITALS (11 sets, daily range): BP systolic 96–124; BP diastolic 51–85; PULSE 80–112; RESP 12–15; TEMP 35.9–36.4; O2SAT 88–99; BMI 34.0
--- NOTE | 2019-01-09 | DI.RAD.S_ITS ---
PROCEDURE: XR ANKLE RT MIN 3V INDICATIONS: REVISION RIGHT ANKLE TECHNIQUE: 5 views of the ankle were acquired. COMPARISON: CT right ankle 12/27/2018 [facility], CR, XR ANKLE RT 2V, 10/11/2018, 15:36. FINDINGS: Fluoroscopic evaluation of the right ankle ORIF. New screw and plate fixation along the medial distal tibia. IMPRESSION: Satisfactory appearance of the new screw and plate fixation along the medial distal tibia. No screw fracture. Dictated by: Matthieu Gibson M.D. on 01/09/2019 at 14:18 Approved by: Matthieu Gibson M.D. on 01/09/2019 at 14:20
[2019-01-09] MEDS: LACTATED RINGERS 1,000 ML 42 ML IV ×2 (08:20→11:13)
--- NOTE | 2019-01-09 08:25 | PM.PREOP ---
Pre-operative Note Interval Note History & Physical reviewed/Exam performed by Physician: Yes Changes to H&P: No
--- NOTE | 2019-01-09 08:26 | PM.OP.1 ---
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 Pierre. Patient has a delayed union of her medial malleolus fracture with displacement as well as widening of her syndesmosis and loosening of her syndesmotic screws consistent with fixation failure. The patient also reports a history of a draining from her medial incision concerning for indolent infection. Infectious labs were within normal limits vitamin D was low at 20. CT scan confirmed widening of the syndesmosis and non healed medial malleolus fracture. Patient has been indicated for revision open reduction internal fixation of the syndesmosis and medial malleolus additionally she has been placed on vitamin D supplementation. Clinically she does not appear infected however a biopsy will be taken from the medial site during the surgery. The risks benefits and alternatives to the procedure were discussed with the patient in detail including but not limited to infection, nonunion, malunion, persistent pain, nerve and vessel damage, wound healing problems, hardware irritation, hardware failure, amputation, DVT, pulmonary embolism, stroke paralysis and . The patient has elected to proceed with surgery. Consent was signed in the office. The patient understands that this will require 6 weeks nonweightbearing post surgery and for the 1st 2 weeks after surgery she should elevate above the heart level. Patient will restart her Xarelto on postoperative day 1. Surgeon: Era Arechiga Click Yes if Unassisted: Yes Anesthesia Type: General and Local Operative Notes Findings: Malunion medial malleolus right ankle with heterotopic bone medially and posteriorly. And anterior displacement heterotopic bone at the joint. Once partially-threaded cannulated screws removed there was some mobility in the malunion an osteotome was used to free this up further this was then reduced and stabilized by a 5 hole medial hook plate from the Arthrex set. Syndesmotic malunion: Syndesmosis was grossly wide on radiographs and inspection. The lateral plate and screws were removed. The fibular shaft fracture appeared to be healed in appropriate length. The syndesmosis was debrided and using thumb pressure and a pelvic reduction clamp the syndesmosis was reduced and then pinned in place with 2x 2.0 K-wires. Fluoroscopy confirmed reduction then a 10 hole 1/3 tubular plate from the Arthrex set was fit to the fibula just posterior from the previous plate and secured to the bone. A 4 tetra cortical 3.5 screws were placed for syndesmotic fixation these were and carefully anterior to the medial hook plate. Clamps were then removed and fluoroscopy was performed confirming stable alignment. Stress external rotation test was done under fluoroscopy with no evidence of widening. Closure Type: primary Specimen(s): other (Bone for micro) Applied: implant(s) (Arthrex 10 hole 1/3 tubular plate and screws these were cortical screws with a locking screw distally. Arthrex 5 hole medial hook plate and screws.) Estimated Blood Loss (mL): 20 Blood products transfused: none Tourniquet time (min): 120 Procedure in detail: Patient was seen in the preoperative holding area. The appropriate limb and site of surgery was marked. Patient was then brought back to the operating room and placed on the operating table in a supine position. The patient was given the appropriate anesthetic. All bony prominences were well padded. A well-padded thigh tourniquet was placed. An SCD was placed on the contralateral lower extremity. A ipsilateral hip bump was placed. The operative extremity was prepped and draped in the standard sterile fashion. A formal time-out procedure was completed confirming the patient, side and site of surgery administration of appropriate preoperative antibiotics. All were in agreement. Implants were in the room. An Esmarch bandage was utilized to exsanguinate the limb and the tourniquet was raised on the thigh to 250 mm of mercury and stayed there for approximately 120 minutes. Medial malleolus malunion/nonunion: Hardware removal and revision ORIF Previous medial incision was inspected this was felt to be posterior so fluoroscopy was brought in to isolate the area of the partially-threaded cannulated screws this was well anterior to the previous medial incision therefore a new medial incision was made along the line of the medial malleolus in line with the screw placement extending proximally. This was carefully taken down through the skin and soft tissue. The screw heads were isolated and the screwdriver was used to remove these with these. Once these were removed there was noted to be a jog of motion in the fracture fragment. There was copious scar tissue and callus both anteriorly at the level the ankle joint and posteriorly. Careful dissection was taken anteriorly to expose the medial shoulder of the joint as well as posteriorly 8 to expose and protect the posterior tibialis tendon. A rongeur was used to clean off the callus and a Iroquois osteotome and rongeur were used to locate the level of the fracture and then free this up. The fracture fragment was then rotated posteriorly reduced and held with a pointed reduction clamp and then a K-wire for a 4 0 cannulated screw was advanced from distal to proximal. A hook plate was selected due to the previous delayed union in poor bone quality. This was impacted with the tines distally and then a 4 0 cancellous screw was placed in the oblong hole this was not tightened all the way down. Then a 50 short thread cannulated screw was placed over the guidewire compressing the tines to the medial malleolus. Once this was completed the cancellous screw was tightened and the shaft screws placed. Reduction was confirmed on fluoroscopy this was satisfactory on fluoroscopy as well as with visual inspection of the joint. Additionally the joint was debrided of fibrous tissue using the pituitary rongeur. No obvious talar chondral lesions were noted. Bone biopsy: Because of the patient's remote history of a prolonged drainage from her medial incision there was a small concern for indolent infection. Her inflammatory markers have been normal however at the site of incision a small amounts of bone was sent for micro to rule this out. On the date of revision surgery that did not appear to be any clinical signs of infection. Revision syndesmotic fixation. Hardware removal and revision ORIF: Next attention was turned laterally to the syndesmosis malunion. The previous lateral incision was reopened along its entire length. Dissection was taken through the soft tissue and subcutaneous tissue to the level of the bone with care to reflect subperiosteal E anteriorly to protect the superficial peroneal nerve. The lateral plate was exposed and screws and plate were removed. The fibula fracture was noted to be healed and moving as a unit. Fibular length was judged to be appropriate. Meticulous dissection was taken anteriorly over the syndesmosis with the rongeur and pituitary used to remove anterior heterotopic ossification as well as heterotopic ossification in the areas where the syndesmotic screws had been. Of note on removing the syndesmotic screws these were grossly loose. Decision was made to leave the posterior malleolus fracture as it was minimally displaced and it was felt the syndesmosis was just wide not displaced anteriorly or posteriorly additionally this would allow using the same lateral incision and limit dissection patient. Once the syndesmosis was adequately debrided the fibula was able to be compressed back to the tibia this was done with thumb pressure as well as the large pelvic reduction clamp which was placed through a screw in the medial malleolus plate as well as 5th grew a previous screw hole in fibula. This was tightened down and then pinned with 2x 2.0 K-wires an additional small pointed reduction clamp was used anteriorly in the area of the previous AI TFL. Fluoroscopy was checked in the AP, mortise and lateral planes confirming adequate reduction of the syndesmotic space and joint alignment. Once this was appropriate a 10 hole 1/3 tubular plate from the Arthrex set was selected and fixed to the bone proximally and distally. Next for tetra cortical syndesmotic screws were placed these were carefully and to be just anterior to the medial malleolus plate and get good fixation in the tibia as well as 4 cortices. Final fluoroscopy was checked intraoperatively the most distal syndesmotic screw was exchanged for 1 slightly shorter is this was palpable medially and felt to benefit from exchange. Once this was complete final AP and lateral were obtained additionally a stress radiograph was obtained that demonstrated no change in the syndesmotic fixation. Of note during examination intraoperatively the patient was noted to have extremely hypermobile 1st ray. Once we were satisfied with our fixation and final fluoroscopy views tourniquet was released hemostasis was achieved the wounds were irrigated and closed in layers with 2 O Vicryl deep 4 0 Monocryl subcutaneous and 3 O nylon in the skin. A well-padded dressing was placed with Xeroform gauze Webril bulky Adams cotton and a U splint. Patient was awoken from anesthesia and taken to the recovery room in good condition. All counts were correct. Complications: none Post-operative Condition: stable Disposition: PACU Plan for aftercare: Nonweightbearing right lower extremity in splint. Elevate above the heart level for the 1st 2 weeks after surgery. Will remain nonweightbearing for approximately 6 weeks. Follow up in clinic in 2 weeks for splint removal and placement into a boot. Will restart Xarelto on postoperative day 1 for DVT prophylaxis and baseline anticoagulant
[2019-01-09] MEDS: CEFAZOLIN 2 GM/100 ML FROZ.PIGGY IV (09:06)
--- NOTE | 2019-01-09 09:15 | SUR.PREOP ---
0853 Rx given by anesthesia for nerve block; Pt was on O2 at 2LNP, continuous VS and cardiac monitoring (in A-fib). Prone position, used nerve stimulator. Pt tolerated block procedure well. Remains prone to the OR. Stated that she was doing well.
--- NOTE | 2019-01-09 09:38 | SUR.OPER ---
Supine on padded OR bed, head on pillow, arms secured on padded arm boards at <90 degrees abduction, legs uncrossed, safety belt at abdomen, tape over blanket over left leg. right leg prepped in sterile field, bump under right hip, bump under right leg
[2019-01-09] MEDS: BUPIVACAINE 0.25% (PF) VIAL 30 ML INJ (09:58)
[2019-01-09] MEDS: OXYCODONE IR 5 MG TABLET PO (13:16)
--- NOTE | 2019-01-09 13:25 | SUR.PHASEI ---
Instructed pt. on the proper use of the insentive sprirometer; her (the pt.) 02 sats are hovering high 80's (88-89) however no greater than 91. Pt. demonstrated proper use of I.S. but needs quite a bit of encouragement to take a deeper breath in. Had pt. do 10 reps and will have the pt. demonstrate I.S. again prior to d/c home. Will continue to monitor 02 sats with O2 @ now 3Lmin via n.c.
--- NOTE | 2019-01-09 13:43 | SUR.PHASEI ---
Called report to Eileen, nurse at [facility]. Informed Eileen of 02 sats and at the same time (during this report) another PACU nurse had the pt. use the I.S. which pt. performed quite well, 02 sats increased to 100% with room air. Pt. maintaining 02 sats @ 100% with room air. Pt. will be transferred to phase II of recovery. Eileen aware of the pt. returning to [facility] within the hour. Full report to Tabatha Tucker RN to continue recovery care
--- NOTE | 2019-01-09 14:41 | SUR.PHASEII ---
Phase II discharge note: Patient transfered to [facility] at 1347. Awake, tolerating po without nausea. IV d/c'd, canual intact. Tolerating pain level 6/10 burning sensation to RLE. Using incentive spirometry intermittently. O2 sat RA 95%. VSS, dressing CDI to lower extremity. Report called earlier by ARCHEOLOGY FACULTY MEMBER to [facility]. Transferred to personal w/c with 2 assist. NWB to RLE. Discharged to [facility] with transportation equipment painter.
== END 2019-01-09 14:22 | disposition home or self-care (01) ==
PROVIDERS: Family Provider Internal Medicine; PCP Internal Medicine; Visit Provider Orthopaedic Surgery Foot and Ankle Surgery
PROC: 0SSF04Z Reposition Right Ankle Joint with Internal Fixation Device, Open Approach (ICD-10-PCS; CPT 27829; principal; 2019-01-09 08:45)
DX: M25.571 Pain in right ankle and joints of right foot (principal); T84.126A Displacement of internal fixation device of bone of right lower leg, initial encounter; T84.7XXA Infection and inflammatory reaction due to other internal orthopedic prosthetic devices, implants and grafts, initial encounter; S82.851P Displaced trimalleolar fracture of right lower leg, subsequent encounter for closed fracture with malunion; G89.18 Other acute postprocedural pain; S82.51XK Displaced fracture of medial malleolus of right tibia, subsequent encounter for closed fracture with nonunion; Z96.7 Presence of other bone and tendon implants; E55.9 Vitamin D deficiency, unspecified; E66.9 Obesity, unspecified; I10 Essential (primary) hypertension; I48.91 Unspecified atrial fibrillation; I69.351 Hemiplegia and hemiparesis following cerebral infarction affecting right dominant side
CPT/HCPCS: 27829; 27766; 20680 ×2; 64450; 73610; 76000; 87070; 87075; 87176; 87205; J0330; J0690; J1100; J2405; J2704; J3010

== ENCOUNTER → 2019-01-22 20:28 | Outpatient (ROUT) | payer MEDICARE, SELFPAY ==
[2019-01-22 20:33] LABS: Appearance Urine UA CLEAR; Bilirubin Urine UA NEGATIVE (NEGATIVE); Color Urine UA YELLOW; Glucose Urine UA NEGATIVE (Negative); Ketones Urine UA NEGATIVE (NEGATIVE); Leukocyte Esterase Urine UA 1+ (NEGATIVE); Nitrite Urine UA NEGATIVE (Negative); Occult Blood Urine UA 3+ (Negative); Protein Urine UA TRACE (Negative); Specific Gravity Urine UA 1.025 (1.000-1.035)
[2019-01-22 20:42] LABS: RBC Urine 30-100/HPF (0-5/HPF); Squamous Epithelial Cell Urine 1-5 /HPF (0-5/HPF); Transitional Epi Cells Urine 1-5/HPF (0-5/HPF); WBC Urine 30-100/HPF (0-5/HPF); pH Urine UA 5.5 (4.5-8.0)
[2019-01-22 20:43] LABS: Bacteria Urine Moderate (10-30); Culture Indicated Urine Specimen Cultured; Mucus Urine 1+ (Negative)
== END ==
PROVIDERS: Family Provider Internal Medicine; PCP Internal Medicine; Visit Provider Internal Medicine
DX: R30.0 Dysuria (principal)
CPT/HCPCS: 81001; 87086

== ENCOUNTER 2019-03-13 11:02 | Emergency (ER) | payer MEDICARE, SELFPAY ==
[2019-03-13] VITALS (10 sets, daily range): BP systolic 100–122; BP diastolic 46–82; PULSE 94–139; RESP 16–32; TEMP 37–38; O2SAT 92–100; BMI 32.5
--- NOTE | 2019-03-13 11:15 | DI.RAD.S_ITS ---
PROCEDURE: XR CHEST 1V INDICATIONS: fever/cough TECHNIQUE: One view of the chest was acquired. COMPARISON: [facility], CR, XR CHEST 1V, 10/12/2018, 9:05. FINDINGS: Surgical changes and devices: None. Lungs and pleura: Lungs are hyperinflated with coarse interstitial markings. No acute consolidations. No pleural effusions or pneumothorax. Mediastinum: Mediastinal contours appear normal. Heart size is enlarged, stable. No central venous congestion. Bones and chest wall: No suspicious bony lesions. Overlying soft tissues appear unremarkable. IMPRESSION: 1. No acute changes. 2. Hyperinflated lungs with coarse interstitial markings. 3. Stable, mild cardiomegaly. Dictated by: Shanae Burk M.D. on 03/13/2019 at 12:33 Approved by: Shanae Burk M.D. on 03/13/2019 at 12:34
--- NOTE | 2019-03-13 11:32 | ED_ITS ---
HPI - URI/Sore Throat General Chief Complaint: Upper Respiratory Symptoms Stated Complaint: Fever/Cough Time Seen by Provider: 03/13/19 11:05 Source: patient and EMS Mode of arrival: EMS Limitations: no limitations History of Present Illness HPI Narrative: Patient comes emergency department after being [facility] for tachycardia and fever. Patient states she has also had a cough. The patient has a history of pulmonary fibrosis and states that her cough is little worse than usual. She does not feel more short of breath than usual. Patient denies any abdominal pain, dysuria, or diarrhea. No nausea or vomiting. She states that she has had a sore throat and headache. No other complaints at this time. Patient does not know of any specific sick contacts. She denies any lightheadedness or dizziness. Related Data Home Medications Medication Instructions Recorded Confirmed gabapentin 300 mg PO BID 08/07/17 03/13/19 Amitiza 24 mcg PO DAILY 12/07/17 03/13/19 furosemide 20 mg PO DAILY 12/07/17 03/13/19 aspirin 81 mg PO DAILY 12/26/17 03/13/19 metoprolol succinate 50 mg PO DAILY 12/26/17 03/13/19 doxepin 100 mg PO BEDTIME 01/23/18 03/13/19 diltiazem HCl 180 mg PO DAILY 10/10/18 03/13/19 escitalopram oxalate 20 mg PO DAILY 10/10/18 03/13/19 gabapentin 600 mg PO BEDTIME 10/10/18 03/13/19 nystatin 1 applic TOPICAL BID 10/10/18 03/13/19 omeprazole 20 mg PO DAILY 10/10/18 03/13/19 potassium chloride 10 meq PO QPM 10/10/18 03/13/19 Xarelto 20 mg PO DAILY 01/09/19 03/13/19 acetaminophen 325 mg PO Q6H PRN 01/09/19 03/13/19 calcium carbonate [Oyster Shell 500 mg PO DAILY 01/09/19 03/13/19 Calcium 500] cholecalciferol (vitamin D3) 2,000 unit PO DAILY 01/09/19 03/13/19 [Vitamin D3] rosuvastatin 40 mg PO DAILY 01/09/19 03/13/19 Previous Rx's Medication Instructions Recorded polyethylene glycol 3350 17 gm PO DAILY #1 pkg 10/13/18 oxycodone 5 - 10 mg PO Q4H PRN #50 tab 01/09/19 ciprofloxacin HCl 500 mg PO Q12H #14 tab 03/13/19 Allergies Allergy/AdvReac Type Severity Reaction Status Date / Time Sulfa (Sulfonamide Allergy Intermediate Rash Verified 03/13/19 11:08 Antibiotics) Review of Systems Constitutional Constitutional: Denies chills, Denies fatigue, Reports fever(s), Denies frequent falls, Denies lethargy and Denies weakness Eyes Eyes: Denies change in vision, Denies eye discharge, Denies irritation and Denies loss of vision ENT Ears, Nose, Mouth, and Throat: Denies change in voice, Denies dizziness, Denies neck pain, Denies sore throat and Denies throat swelling Cardiovascular Cardiovascular: Denies chest pain, Denies irregular heart rhythm, Denies lightheadedness, Denies palpitations, Denies dyspnea, Denies dyspnea on exertion and Denies orthopnea Comments: Tachycardia Respiratory Respiratory: Reports cough, Denies dyspnea, Denies dyspnea on exertion and Denies wheezing Gastrointestinal Gastrointestinal: Denies abdominal pain, Denies change in bowel habits, Denies diarrhea, Denies nausea and Denies vomiting Genitourinary Genitourinary: Denies hematuria, Denies flank pain, Denies urinary incontinence and Denies urinary urgency Musculoskeletal Musculoskeletal: Denies back pain, Denies muscle weakness, Denies neck pain, Denies numbness and Denies tingling Integumentary/Breasts Skin/Breast: Denies pruritus, Denies erythema, Denies rash and Denies wounds Neurologic Neurologic: Denies behavioral changes, Denies confusion, Denies dizziness, Denies frequent falls, Denies loss of vision, Denies numbness, Denies tingling and Denies weakness Psychiatric Psychiatric: Denies anxiety, Denies behavioral changes, Denies confusion, Denies depression, Denies homicidal ideation and Denies suicidal ideation Endocrine Endocrine: Denies fatigue, Denies flushing and Denies palpitations Hematologic/Lymphatic Hematologic/Lymphatic: Denies easy bruising Allergic/Immunologic Allergic/Immunologic: Denies urticaria, Denies throat swelling and Denies wheezing Patient History Medical History Chronic pain (Chronic) Dementia (Acute) Depression (Chronic) GERD (gastroesophageal reflux disease) (Chronic) Herpes encephalitis (Resolved) History of lumbar puncture (Acute 08/29/18) Hyperlipidemia (Chronic) Hypertension (Chronic) Hypoxia (Acute 10/10/18) Impaired fasting glucose (Chronic) Pulmonary fibrosis (Chronic) Stroke (Suspected) Surgical History History of ankle surgery (Acute 10/11/18) Social History details: two years ago number of children: 2 household members: none lives independently: Yes caregiver/support person: Yes housing: apartment other: Denies alcohol drinking or cigarette smoking. Her son of overdose 1 w Smoking Status: Former smoker alcohol intake: current Smoking Status: Former smoker alcohol intake frequency: holidays/special occasions only Substance Use Type: does not use Exam Initial Vital Signs Initial Vital Signs: Vital Signs Temperature 99.7 F H 03/13/19 11:08 Pulse Rate 135 H 03/13/19 11:08 Respiratory Rate 24 03/13/19 11:08 Blood Pressure 122/82 03/13/19 11:08 Pulse Oximetry 100 03/13/19 11:08 Const General: cooperative and well developed Nutritional Appearance: well nourished Orientation: alert, awake, oriented x3 and not confused [facility] Head: normocephalic and atraumatic Ears: external ears normal Nose: external nose normal and No nasal discharge Face and sinus: face symmetric and No dry mucous membranes Mouth: oral mucosae normal and moist mucous membranes Teeth and gingiva: dentition normal Eyes General: appearance normal, both eyes and all related structures Eyelids: eyelids normal Conjunctivae: conjunctivae normal Sclera: sclerae normal Pupils: PERRL EOM: EOM intact bilaterally Neck Neck: normal visual inspection, trachea midline, No lymphadenopathy, No midline deformity and No JVD Lymphatic: No lymphedema Chest Chest: normal inspection of the chest Resp Effort & Inspection: normal respiratory effort, able to speak in complete sentences, no respiratory distress and no use of accessory muscles Auscultation: clear to auscultation bilaterally, no rales, no rhonchi and no wheezes Cardio Rate: regular rate Rhythm: regular rhythm Heart Sounds: no click, no gallops, no murmurs and no rubs Pulses: normal peripheral pulses GI Inspection: non-distended Palpation: soft, no hepatosplenomegaly, No guarding, No pulsatile mass and No tender Back/Spine/Pelvis Back: No CVA tenderness Cervical Spine: cervical ROM normal and No pain with cervical ROM Thoracic/Lumbar Spine: thoracic and lumbar spine normal to inspection Skin General: no rashes or lesions noted, No jaundice and No petechiae Neuro General: alert, oriented x3, gait normal and no focal motor deficits Speech: speech normal Extrem General: full ROM, no clubbing, cyanosis or edema, no pedal edema and no calf tenderness Psych Appearance: well kempt Mental Status: mental status grossly normal Attitude: cooperative Thought Content: normal and suicidality Judgment: judgment good Course Course Course Narrative: Patient was placed on the cardiac monitor technician and found to be in atrial fibrillation with rapid ventricular response. She was also found have a temperature of 101.7? here in the emergency department. She was given doses of ibuprofen and Tylenol for the fever and was worked up with labs, EKG, chest x- ray, and influenza swab. Work-up was negative, other than a leukocytosis of 17.6. Patient responded very well to defervescence, IV fluids, and a small dose of Cardizem. She reported feeling very well, and her overall picture did not indicate sepsis at this time. Blood cultures are pending, but at this point, I felt the pt was stable for d/c home. We have discussed home management of sx, including the need for fluid intake and fever control, as well as the usual indications for return. Orders Ordered: Discontinued Medications Acetaminophen (Tylenol) 975 mg PO NOW ONE Stop: 03/13/19 11:31 Last Admin: 03/13/19 11:42 Dose: 975 mg Documented by: KATELYNN Ciprofloxacin (Cipro) 500 mg PO NOW ONE Stop: 03/13/19 15:26 Last Admin: 03/13/19 15:39 Dose: 500 mg Documented by: MARLYOTEM Diltiazem HCl (Cardizem) 10 mg IV NOW ONE Stop: 03/13/19 14:03 Last Admin: 03/13/19 14:32 Dose: 10 mg Documented by: HFANDREATO Sodium Chloride (Normal Saline 0.9%) 1,000 mls @ 1,000 mls/hr IV BOLUS ONE Stop: 03/13/19 12:14 Last Infusion: 03/13/19 12:21 Dose: 0 mls/hr Documented by: Admin: 03/13/19 11:35 Dose: 1,000 mls/hr Documented by: KATELYNN Ibuprofen (Advil) 800 mg PO NOW ONE Stop: 03/13/19 11:31 Last Admin: 03/13/19 11:42 Dose: 800 mg Documented by: KATELYNN Vital Signs Vital signs: Vital Signs - 8 hr 03/13/19 11:08 03/13/19 11:10 Temperature 99.7 F H 100.4 F H Pulse Rate 135 H Respiratory Rate 24 Blood Pressure 122/82 Pulse Oximetry 100 MDM - URI/Sore Throat Medical Records Attestation: I reviewed the patient's medical records. Lab Data Attestation: I reviewed the patient's lab results. Result diagrams: 03/13/19 11:20 03/13/19 11:20 Labs: Lab Results 03/13/19 03/13/19 03/13/19 Range/Units 11:15 11:20 11:20 WBC 17.6 H (4.5-11.0) X10^3/uL RBC 4.29 (4.0-5.2) X10^6/uL Hgb 11.2 L (12.0-16.0) g/dL Hct 34.4 L (36-46) % MCV 80.1 (80-100) fL MCH 26.2 (26-34) PG MCHC 32.7 (30-36) % RDW 15.5 H (11.6-14.8) % Plt Count 287 (150-400) X10^3/uL Neut % (Auto) 77.9 H (50-75) % Lymph % (Auto) 10.5 L (25-40) % Terry % (Auto) 11.0 (3-14) % Eos % (Auto) 0.2 L (2-4) % Baso % (Auto) 0.4 (0-2) % Neut # (Auto) 77248 H (3762-4795) /uL Lymph # (Auto) 1800 (4572-4586) /uL Terry # (Auto) 1900 H (0-900) /uL Eos # (Auto) 0 (0-450) /uL Baso # (Auto) 100 (0-100) /uL Sodium 133 L (137-145) mmol/L Potassium 3.8 (3.4-5.1) mmol/L Chloride 98 (98-107) mmol/L Carbon Dioxide 26 (22-32) mmol/L BUN 12 (7-17) mg/dL Creatinine 1.20 H (0.52-1.04) mg/dL Estimated GFR 43.1 L (>60) mL/min BUN/Creatinine Ratio 10.0 (6-22) Glucose 145 H (80-110) mg/dL Calcium 9.3 (8.4-10.2) mg/dL Total Bilirubin 1.2 (0.2-1.3) mg/dL AST 17 (14-36) IU/L ALT 11 (<35) IU/L Alkaline Phosphatase 101 (38-126) U/L Total Protein 7.2 (6.3-8.2) g/dL Albumin 4.0 (3.5-5.0) g/dL Globulin 3.2 (1.7-4.1) g/dL Albumin/Globulin Ratio 1.3 (1.0-2.8) Urine Color Urine Appearance Urine pH (4.5-8.0) Ur Specific [place] (1.000-1.035) Urine Protein (Negative) Urine Glucose (UA) (Negative) g/dL Urine Ketones (NEGATIVE) Urine Occult Blood (Negative) Urine Nitrate (Negative) Urine Bilirubin (NEGATIVE) Urine Urobilinogen (0.2) E.U./dL Ur Leukocyte Esterase (NEGATIVE) Urine RBC (0-5/HPF) Urine WBC (0-5/HPF) Urine Bacteria (None) Ur Culture Indicated? Influenza A (RT-PCR) Flu a negative (NEGATIVE) Influenza B (RT-PCR) Flu b negative (NEGATIVE) 03/13/19 Range/Units 14:20 WBC (4.5-11.0) X10^3/uL RBC (4.0-5.2) X10^6/uL Hgb (12.0-16.0) g/dL Hct (36-46) % MCV (80-100) fL MCH (26-34) PG MCHC (30-36) % RDW (11.6-14.8) % Plt Count (150-400) X10^3/uL Neut % (Auto) (50-75) % Lymph % (Auto) (25-40) % Terry % (Auto) (3-14) % Eos % (Auto) (2-4) % Baso % (Auto) (0-2) % Neut # (Auto) (2434-6044) /uL Lymph # (Auto) (5482-0098) /uL Terry # (Auto) (0-900) /uL Eos # (Auto) (0-450) /uL Baso # (Auto) (0-100) /uL Sodium (137-145) mmol/L Potassium (3.4-5.1) mmol/L Chloride (98-107) mmol/L Carbon Dioxide (22-32) mmol/L BUN (7-17) mg/dL Creatinine (0.52-1.04) mg/dL Estimated GFR (>60) mL/min BUN/Creatinine Ratio (6-22) Glucose (80-110) mg/dL Calcium (8.4-10.2) mg/dL Total Bilirubin (0.2-1.3) mg/dL AST (14-36) IU/L ALT (<35) IU/L Alkaline Phosphatase (38-126) U/L Total Protein (6.3-8.2) g/dL Albumin (3.5-5.0) g/dL Globulin (1.7-4.1) g/dL Albumin/Globulin Ratio (1.0-2.8) Urine Color Yellow Urine Appearance Clear Urine pH 7.0 (4.5-8.0) Ur Specific [place] 1.010 (1.000-1.035) Urine Protein Trace H (Negative) Urine Glucose (UA) Negative (Negative) g/dL Urine Ketones Negative (NEGATIVE) Urine Occult Blood Negative (Negative) Urine Nitrate Negative (Negative) Urine Bilirubin Negative (NEGATIVE) Urine Urobilinogen 0.2 (0.2) E.U./dL Ur Leukocyte Esterase Trace H (NEGATIVE) Urine RBC 0-1/hpf D (0-5/HPF) Urine WBC 5-10/hpf H (0-5/HPF) Urine Bacteria None seen (None) Ur Culture Indicated? Specimen cultured Influenza A (RT-PCR) (NEGATIVE) Influenza B (RT-PCR) (NEGATIVE) Imaging Data Chest x-ray: Radiologist's impression: PROCEDURE: XR CHEST 1V INDICATIONS: fever/cough TECHNIQUE: One view of the chest was acquired. COMPARISON: [facility], CR, XR CHEST 1V, 10/12/2018, 9:05. FINDINGS: Surgical changes and devices: None. Lungs and pleura: Lungs are hyperinflated with coarse interstitial markings. No acute consolidations. No pleural effusions or pneumothorax. Mediastinum: Mediastinal contours appear normal. Heart size is enlarged, stable. No central venous congestion. Bones and chest wall: No suspicious bony lesions. Overlying soft tissues appear unremarkable. IMPRESSION: 1. No acute changes. 2. Hyperinflated lungs with coarse interstitial markings. 3. Stable, mild cardiomegaly. Dictated by: Shanae Burk M.D. on 03/13/2019 at 12:33 Approved by: Shanae Burk M.D. on 03/13/2019 at 12:34 ECG Data Attestation: I personally reviewed and interpreted this ECG as follows: (See below) Interpretation: Atrial fibrillation Rate 144 QRS dur 85 ms QTc 377 ms [place] intervals undetectable ST depression 1mm or less in AVF and V3-V5. Interpretation: A. fib with RVR; no STEMI; abnormal EKG, as interpreted by EDMD. Discharge Plan Departure Patient Disposition: Home Clinical Impression: Rapid atrial fibrillation, Viral infection Urinary tract infection Qualifiers: Urinary tract infection type: acute cystitis Hematuria presence: without hematuria Qualified Code(s): N30.00 - Acute cystitis without hematuria Discharge Date/Time: 03/13/19 16:01 Instructions: DI for Atrial Fibrillation, DI for Urinary Tract Infection (UTI), DI for Viral Syndrome Activity Restrictions/Additional Instructions: Your labs show that your immune system is fighting an infection. The majority o f her symptoms are most likely viral, but you do have a mild urinary tract infection, as well. You have been started on antibiotics for this in the emergency department. Your chest x-ray shows no evidence of pneumonia at this time. Your influenza test is negative. Blood cultures are pending, and you will be notified if they come back positive. Your prescription has been called in to [facility] in [place]. Prescriptions: New ciprofloxacin HCl 500 mg tablet 500 mg PO Q12H Qty: 14 RF: 0 No Action gabapentin 300 mg Capsule 300 mg PO BID RF: 0 metoprolol succinate 50 mg tablet extended release 24 hr 50 mg PO DAILY RF: 0 aspirin 81 mg Tablet,Delayed Release (Dr/Ec) 81 mg PO DAILY RF: 0 gabapentin 600 mg Tablet 600 mg PO BEDTIME RF: 0 diltiazem HCl 180 mg capsule,extended release 24hr 180 mg PO DAILY RF: 0 nystatin 100,000 unit/gram Powder 1 applic TOPICAL BID RF: 0 escitalopram oxalate 20 mg tablet 20 mg PO DAILY RF: 0 potassium chloride 10 mEq Tablet Extended Release 10 meq PO QPM RF: 0 omeprazole 20 mg capsule,delayed release(DR/EC) 20 mg PO DAILY RF: 0 polyethylene glycol 3350 17 gram Powder In Packet 17 gm PO DAILY Qty: 1 RF: 0 furosemide 20 mg Tablet 20 mg PO DAILY RF: 0 Amitiza 24 mcg Capsule 24 mcg PO DAILY RF: 0 doxepin 100 mg Capsule 100 mg PO BEDTIME RF: 0 oxycodone 5 mg tablet 5 - 10 mg PO Q4H PRN (Reason: pain) Qty: 50 RF: 0 rosuvastatin 40 mg Tablet 40 mg PO DAILY RF: 0 cholecalciferol (vitamin D3) [Vitamin D3] 2,000 unit Tablet 2,000 unit PO DAILY RF: 0 Xarelto 20 mg Tablet 20 mg PO DAILY RF: 0 acetaminophen 325 mg tablet 325 mg PO Q6H PRN (Reason: Pain) RF: 0 calcium carbonate [Oyster Shell Calcium 500] 500 mg calcium (1,250 mg) Tablet 500 mg PO DAILY RF: 0 Referrals: Carissa Chen MD [Primary Care Provider] -
[2019-03-13] MEDS: SODIUM CHLORIDE 0.9% 1,000 ML 1000 ML IV (11:35)
[2019-03-13] MEDS: IBUPROFEN 400 MG TABLET 800 MG PO (11:42)
[2019-03-13] MEDS: ACETAMINOPHEN 325 MG TABLET 975 MG PO (11:42)
[2019-03-13 12:05] LABS: Add Manual Diff / Slide Review NO; Basophils Absolute Auto 100 /uL (0-100); Basophils Percent Auto 0.4 % (0-2); Eosinophils Absolute Auto 0 /uL (0-450); Eosinophils Percent Auto 0.2 % (2-4); Hematocrit 34.4 % (36-46); Hemoglobin 11.2 g/dL (12.0-16.0); Lymphocytes Absolute Auto 1800 /uL (1100-4500); Lymphocytes Percent Auto 10.5 % (25-40); Mean Corpuscular HGB Conc 32.7 % (30-36); Mean Corpuscular Hemoglobin 26.2 PG (26-34); Mean Corpuscular Volume 80.1 fL (80-100); Monocytes Absolute Auto 1900 /uL (0-900); Neutrophils Absolute Auto 13700 /uL (1500-7000); Neutrophils Percent Auto 77.9 % (50-75); Platelet Count 287 X10^3/uL (150-400); Red Blood Cell Count 4.29 X10^6/uL (4.0-5.2); Red Cell Distribution Width 15.5 % (11.6-14.8); White Blood Cell Count 17.6 X10^3/uL (4.5-11.0)
[2019-03-13 12:17] LABS: Alanine Aminotransferase 11 IU/L (<35); Albumin Globulin Ratio 1.3 (1.0-2.8); Alkaline Phosphatase 101 U/L (38-126); Aspartate Aminotransferase 17 IU/L (14-36); Bilirubin Total 1.2 mg/dL (0.2-1.3); Blood Urea Nitrogen 12 mg/dL (7-17); Calcium 9.3 mg/dL (8.4-10.2); Carbon Dioxide 26 mmol/L (22-32); Chloride 98 mmol/L (98-107); Estimated Glomerular Filt Rate 43.1 mL/min (>60); Globulin 3.2 g/dL (1.7-4.1); Glucose 145 mg/dL (80-110); HEMOLYSIS < 15 (0-50); Potassium 3.8 mmol/L (3.4-5.1); Sodium 133 mmol/L (137-145); Total Protein 7.2 g/dL (6.3-8.2)
[2019-03-13 12:35] LABS: Influenza A - CEPHEID Flu A NEGATIVE (NEGATIVE); Influenza B - CEPHEID Flu B NEGATIVE (NEGATIVE)
[2019-03-13 14:26] LABS: Bacteria Urine None Seen
[2019-03-13 14:27] LABS: Appearance Urine UA CLEAR; Bilirubin Urine UA NEGATIVE (NEGATIVE); Color Urine UA YELLOW; Glucose Urine UA NEGATIVE (Negative); Ketones Urine UA NEGATIVE (NEGATIVE); Leukocyte Esterase Urine UA TRACE (NEGATIVE); Nitrite Urine UA NEGATIVE (Negative); Occult Blood Urine UA NEGATIVE (Negative); Protein Urine UA TRACE (Negative); Urobilinogen Urine UA 0.2 E.U./dL (0.2)
[2019-03-13] MEDS: dilTIAZem 5 MG/ML SDV 10 MG IV (14:32)
[2019-03-13 14:35] LABS: Culture Indicated Urine Specimen Cultured; RBC Urine 0-1/HPF (0-5/HPF); WBC Urine 5-10/HPF (0-5/HPF)
[2019-03-13] MEDS: CIPROFLOXACIN 500 MG TABLET PO (15:39)
== END 2019-03-13 16:01 | disposition home or self-care (01) ==
PROVIDERS: Emergency Provider Emergency Medicine; Family Provider Internal Medicine; PCP Internal Medicine
DX: I48.91 Unspecified atrial fibrillation (principal); N39.0 Urinary tract infection, site not specified
CPT/HCPCS: 36415; 71045; 80053; 81001; 85025; 87040; 87086; 87502; 93005; 93010; 96361; 96374; 99284; 99285

== ENCOUNTER → 2019-05-15 08:14 | Outpatient (ROUT) | payer MEDICARE, SELFPAY ==
[2019-05-15 10:28] LABS: Vitamin D 25 Hydroxy (D3) 32.4 ng/mL (30.0-100.0)
== END ==
PROVIDERS: Family Provider Internal Medicine; PCP Internal Medicine; Visit Provider Internal Medicine
DX: S82.51XG Displaced fracture of medial malleolus of right tibia, subsequent encounter for closed fracture with delayed healing (principal); S82.61XD Displaced fracture of lateral malleolus of right fibula, subsequent encounter for closed fracture with routine healing
CPT/HCPCS: 36415; 82306

== ENCOUNTER 2019-05-20 23:03 | Emergency (ER) | payer MEDICARE, SELFPAY ==
[2019-05-20 23:07] VITALS: BP 151/72; PULSE 71; RESP 20; TEMP 36.7; O2SAT 97; BMI 38.5
--- NOTE | 2019-05-20 23:21 | ED_ITS ---
HPI - General Adult General Chief complaint: Upper Respiratory Symptoms Stated complaint: Shortness of breath Time Seen by Provider: 05/20/19 23:04 Source: patient and EMS Mode of arrival: EMS Limitations: no limitations History of Present Illness HPI narrative: Patient is an 83-year-old female who arrived by EMS for evaluations of shortness of breath. She comes from the long term facility across the street. She has underlying chronic lung pathology to include pulmonary fibrosis. She is on oxygen all the time. It appears that over the past several days she has become more short of breath. Patient denies any other symptoms to include chest pain. No lower extremity swelling. No palpitations. She states that she is taking all the medications at her given to her from the nursing facility. Related Data Home Medications Medication Instructions Recorded Confirmed gabapentin 300 mg PO BID 08/07/17 03/13/19 Amitiza 24 mcg PO DAILY 12/07/17 03/13/19 furosemide 20 mg PO DAILY 12/07/17 03/13/19 aspirin 81 mg PO DAILY 12/26/17 03/13/19 metoprolol succinate 50 mg PO DAILY 12/26/17 03/13/19 doxepin 100 mg PO BEDTIME 01/23/18 03/13/19 diltiazem HCl 180 mg PO DAILY 10/10/18 03/13/19 escitalopram oxalate 20 mg PO DAILY 10/10/18 03/13/19 gabapentin 600 mg PO BEDTIME 10/10/18 03/13/19 nystatin 1 applic TOPICAL BID 10/10/18 03/13/19 omeprazole 20 mg PO DAILY 10/10/18 03/13/19 potassium chloride 10 meq PO QPM 10/10/18 03/13/19 Xarelto 20 mg PO DAILY 01/09/19 03/13/19 acetaminophen 325 mg PO Q6H PRN 01/09/19 03/13/19 calcium carbonate [Oyster Shell 500 mg PO DAILY 01/09/19 03/13/19 Calcium 500] cholecalciferol (vitamin D3) 2,000 unit PO DAILY 01/09/19 03/13/19 [Vitamin D3] rosuvastatin 40 mg PO DAILY 01/09/19 03/13/19 Previous Rx's Medication Instructions Recorded polyethylene glycol 3350 17 gm PO DAILY #1 pkg 10/13/18 oxycodone 5 - 10 mg PO Q4H PRN #50 tab 01/09/19 ciprofloxacin HCl 500 mg PO Q12H #14 tab 03/13/19 Allergies Allergy/AdvReac Type Severity Reaction Status Date / Time Sulfa (Sulfonamide Allergy Intermediate Rash Verified 03/13/19 11:08 Antibiotics) Review of Systems Constitutional Constitutional: Denies fever(s) and Denies headache(s) ENT Ears, Nose, Mouth, and Throat: Denies headache(s) Cardiovascular Cardiovascular: Denies chest pain, Reports edema, Denies palpitations and Reports dyspnea Respiratory Respiratory: Reports dyspnea Gastrointestinal Gastrointestinal: Denies abdominal pain Musculoskeletal Musculoskeletal: Denies myalgias and Denies arthralgias Integumentary/Breasts Skin/Breast: Denies rash Neurologic Neurologic: Denies behavioral changes and Denies headache(s) Psychiatric Psychiatric: Denies behavioral changes Endocrine Endocrine: Denies palpitations Hematologic/Lymphatic Hematologic/Lymphatic: Denies easy bleeding and Denies easy bruising Patient History Medical History Chronic pain (Chronic) Dementia (Acute) Depression (Chronic) GERD (gastroesophageal reflux disease) (Chronic) Herpes encephalitis (Resolved) History of lumbar puncture (Acute 08/29/18) Hyperlipidemia (Chronic) Hypertension (Chronic) Hypoxia (Acute 10/10/18) Impaired fasting glucose (Chronic) Pulmonary fibrosis (Chronic) Stroke (Suspected) Social History details: two years ago number of children: 2 household members: none lives independently: Yes caregiver/support person: Yes housing: apartment other: Denies alcohol drinking or cigarette smoking. Her son of overdose 1 w Smoking Status: Former smoker alcohol intake: current Smoking Status: Former smoker alcohol intake frequency: holidays/special occasions only Substance Use Type: does not use Exam Initial Vital Signs Initial Vital Signs: Vital Signs Temperature 98.1 F 05/20/19 23:07 Pulse Rate 71 05/20/19 23:07 Respiratory Rate 20 05/20/19 23:07 Blood Pressure 151/72 H 05/20/19 23:07 Pulse Oximetry 97 05/20/19 23:07 Const General: cooperative and comfortable Limitations: mental status not altered HENMT Head: normal to inspection and normocephalic Resp Effort & Inspection: normal respiratory effort Auscultation: clear to auscultation bilaterally Other: On oxygen by nasal cannula Cardio Rate: regular rate Rhythm: regular rhythm GI Inspection: non-distended Palpation: soft Skin Lesions: no lesions Rashes: no rashes Neuro General: alert and awake Cognition: normal cognition Extrem General: edema Psych Appearance: grossly normal and well kempt Scores GCS [place] coma scale eye opening: Spontaneous Gurpreet coma scale verbal response: Orientated [place] coma scale motor response: Obey commands [place] coma scale total score: 15 Course Orders Ordered: ED Orders 05/20/19 23:26 XR chest 1V Stat EKG-12 Lead Stat 05/20/19 23:34 Complete Blood Count AUTO DIFF Stat Comprehensive Metabolic Panel Stat Lipase Stat NT-proBNP (BNP-Adult 18+) Stat Partial Thromboplastin Time Stat Procalcitonin Stat Prothrombin Time INR Stat Troponin I Stat Vital Signs Vital signs: Vital Signs - 8 hr 05/20/19 23:07 05/21/19 00:45 Temperature 98.1 F 97.8 F Pulse Rate 71 69 Respiratory Rate 20 14 Blood Pressure 151/72 H 148/68 H Pulse Oximetry 97 97 Medical Decision Making Lab Data Lab results reviewed: Yes I reviewed the patient's lab results. Result diagrams: 05/20/19 23:34 05/20/19 23:34 Labs: Lab Results 05/20/19 05/20/19 05/20/19 Range/Units 23:34 23:34 23:34 WBC 10.4 (4.5-11.0) X10^3/uL RBC 4.12 (4.0-5.2) X10^6/uL Hgb 11.0 L (12.0-16.0) g/dL Hct 33.8 L (36-46) % MCV 82.0 (80-100) fL MCH 26.7 (26-34) PG MCHC 32.6 (30-36) % RDW 16.2 H (11.6-14.8) % Plt Count 303 (150-400) X10^3/uL Neut % (Auto) 63.4 (50-75) % Lymph % (Auto) 24.3 L (25-40) % [place] % (Auto) 8.1 (3-14) % Eos % (Auto) 3.7 (2-4) % Baso % (Auto) 0.5 (0-2) % Neut # (Auto) 6600 (9508-9515) /uL Lymph # (Auto) 2500 (5733-4222) /uL [place] # (Auto) 800 (0-900) /uL Eos # (Auto) 400 (0-450) /uL Baso # (Auto) 100 (0-100) /uL PT 17.2 H (10.1-12.7) SECONDS INR 1.5 H (0.9-1.3) APTT 39 H D (26.4-36.2) SECONDS Sodium 139 (137-145) mmol/L Potassium 3.8 (3.4-5.1) mmol/L Chloride 101 (98-107) mmol/L Carbon Dioxide 30 (22-32) mmol/L BUN 10 (7-17) mg/dL Creatinine 1.00 (0.52-1.04) mg/dL Estimated GFR 53.2 L (>60) mL/min BUN/Creatinine Ratio 10.0 (6-22) Glucose 147 H (80-110) mg/dL Calcium 9.3 (8.4-10.2) mg/dL Total Bilirubin 0.3 (0.2-1.3) mg/dL AST 16 (14-36) IU/L ALT 10 (<35) IU/L Alkaline Phosphatase 118 (38-126) U/L Troponin I (0.01-0.034) ng/mL NT-Pro-B Natriuret Pep 1300 H (<450) pg/mL Total Protein 6.9 (6.3-8.2) g/dL Albumin 3.7 (3.5-5.0) g/dL Globulin 3.2 (1.7-4.1) g/dL Albumin/Globulin Ratio 1.2 (1.0-2.8) Lipase 78 (23-300) U/L Procalcitonin (<0.5) ng/mL 05/20/19 05/20/19 Range/Units 23:34 23:34 WBC (4.5-11.0) X10^3/uL RBC (4.0-5.2) X10^6/uL Hgb (12.0-16.0) g/dL Hct (36-46) % MCV (80-100) fL MCH (26-34) PG MCHC (30-36) % RDW (11.6-14.8) % Plt Count (150-400) X10^3/uL Neut % (Auto) (50-75) % Lymph % (Auto) (25-40) % [place] % (Auto) (3-14) % Eos % (Auto) (2-4) % Baso % (Auto) (0-2) % Neut # (Auto) (8549-3037) /uL Lymph # (Auto) (0706-3140) /uL [place] # (Auto) (0-900) /uL Eos # (Auto) (0-450) /uL Baso # (Auto) (0-100) /uL PT (10.1-12.7) SECONDS INR (0.9-1.3) APTT (26.4-36.2) SECONDS Sodium (137-145) mmol/L Potassium (3.4-5.1) mmol/L Chloride (98-107) mmol/L Carbon Dioxide (22-32) mmol/L BUN (7-17) mg/dL Creatinine (0.52-1.04) mg/dL Estimated GFR (>60) mL/min BUN/Creatinine Ratio (6-22) Glucose (80-110) mg/dL Calcium (8.4-10.2) mg/dL Total Bilirubin (0.2-1.3) mg/dL AST (14-36) IU/L ALT (<35) IU/L Alkaline Phosphatase (38-126) U/L Troponin I < 0.012 (0.01-0.034) ng/mL NT-Pro-B Natriuret Pep (<450) pg/mL Total Protein (6.3-8.2) g/dL Albumin (3.5-5.0) g/dL Globulin (1.7-4.1) g/dL Albumin/Globulin Ratio (1.0-2.8) Lipase (23-300) U/L Procalcitonin < 0.05 (<0.5) ng/mL Imaging Data Chest x-ray: Attestation: I personally reviewed and interpreted this imaging study as follows: My Impression: Increased pulmonary markings concerning for edema ECG Data Attestation: I personally reviewed and interpreted this ECG as follows: Prior ECG tracings: not available for review Interpretation: AFib Ventricular rate is 74 Normal axis Normal QRS Normal QTC No ST T wave changes MDM Narrative Medical decision making narrative: Patient has clear lung exam. She is not hypoxic. She is not tachypneic. She is on oxygen all the time at home. Her chest x-ray does show increased markings bilaterally. This could potentially be edema. She does have lower extremity swelling. She does not think that this is any worse that which she is that baseline. According to her medicine list she is taking 20 mg of Lasix on a daily basis. Patient states that she has unsure she is taking this. She states that she takes all the medicines given to her by the nursing staff. She does have an elevated BNP. Also given her underlying lung pathology unsure whether not this could be causing her symptoms or potentially increase in fluid retention. She does not recognize the term heart failure. She is unsure she has event diagnosed with this. Plan we is to increase her Lasix to 40 mg a day. Discharge patient home with this plan. She was given return precautions and follow-up instructions. She expressed understanding and agreement plan. Discharge Plan Departure Patient Disposition: Home Clinical Impression: Shortness of breath Discharge Date/Time: 05/21/19 00:55 Instructions: DI for Shortness of Breath Activity Restrictions/Additional Instructions: I do recommend that your furosemide/Lasix from 20 mg a day to 40 mg once a day. I also recommend tomorrow you contact your primary provider for a follow-up. Return to the emergency department for any new or worsening symptoms. Continue the rest of your medications as directed Prescriptions: No Action gabapentin 300 mg Capsule 300 mg PO BID RF: 0 metoprolol succinate 50 mg tablet extended release 24 hr 50 mg PO DAILY RF: 0 aspirin 81 mg Tablet,Delayed Release (Dr/Ec) 81 mg PO DAILY RF: 0 gabapentin 600 mg Tablet 600 mg PO BEDTIME RF: 0 diltiazem HCl 180 mg capsule,extended release 24hr 180 mg PO DAILY RF: 0 nystatin 100,000 unit/gram Powder 1 applic TOPICAL BID RF: 0 escitalopram oxalate 20 mg tablet 20 mg PO DAILY RF: 0 potassium chloride 10 mEq Tablet Extended Release 10 meq PO QPM RF: 0 omeprazole 20 mg capsule,delayed release(DR/EC) 20 mg PO DAILY RF: 0 polyethylene glycol 3350 17 gram Powder In Packet 17 gm PO DAILY Qty: 1 RF: 0 furosemide 20 mg Tablet 20 mg PO DAILY RF: 0 Amitiza 24 mcg Capsule 24 mcg PO DAILY RF: 0 doxepin 100 mg Capsule 100 mg PO BEDTIME RF: 0 oxycodone 5 mg tablet 5 - 10 mg PO Q4H PRN (Reason: pain) Qty: 50 RF: 0 rosuvastatin 40 mg Tablet 40 mg PO DAILY RF: 0 cholecalciferol (vitamin D3) [Vitamin D3] 2,000 unit Tablet 2,000 unit PO DAILY RF: 0 Xarelto 20 mg Tablet 20 mg PO DAILY RF: 0 acetaminophen 325 mg tablet 325 mg PO Q6H PRN (Reason: Pain) RF: 0 calcium carbonate [Oyster Shell Calcium 500] 500 mg calcium (1,250 mg) Tablet 500 mg PO DAILY RF: 0 ciprofloxacin HCl 500 mg tablet 500 mg PO Q12H Qty: 14 RF: 0 Referrals: Carissa Chen MD [Primary Care Provider] -
--- NOTE | 2019-05-20 23:26 | DI.RAD.S_ITS ---
PROCEDURE: XR CHEST 1V INDICATIONS: Shortness of breath TECHNIQUE: One view of the chest was acquired. COMPARISON: Located Within [facility], CR, XR CHEST 1V, 03/13/2019, 11:45. Located Within [facility], CR, XR CHEST 1V, 10/12/2018, 9:05. FINDINGS: Surgical changes and devices: None. Lungs and pleura: Lungs are difficult to accurately assess as due to patient rotation and tilt rightward. No definite pneumonia found. No pleural effusions or pneumothorax. Mediastinum: Mediastinal contours appear normal. Heart size is normal. Bones and chest wall: No suspicious bony lesions. Overlying soft tissues appear unremarkable. IMPRESSION: Patient rotation and tilt rightward, no definite pneumonia found. Dictated by: Willie Weeks M.D. on 05/21/2019 at 8:36 Approved by: Willie Weeks M.D. on 05/21/2019 at 8:37
[2019-05-20 23:50] LABS: Add Manual Diff / Slide Review NO; Basophils Absolute Auto 100 /uL (0-100); Basophils Percent Auto 0.5 % (0-2); Eosinophils Absolute Auto 400 /uL (0-450); Eosinophils Percent Auto 3.7 % (2-4); Hematocrit 33.8 % (36-46); Lymphocytes Absolute Auto 2500 /uL (1100-4500); Lymphocytes Percent Auto 24.3 % (25-40); Mean Corpuscular HGB Conc 32.6 % (30-36); Mean Corpuscular Hemoglobin 26.7 PG (26-34); Monocytes Absolute Auto 800 /uL (0-900); Monocytes Percent Auto 8.1 % (3-14); Neutrophils Absolute Auto 6600 /uL (1500-7000); Neutrophils Percent Auto 63.4 % (50-75); Platelet Count 303 X10^3/uL (150-400); Red Blood Cell Count 4.12 X10^6/uL (4.0-5.2); Red Cell Distribution Width 16.2 % (11.6-14.8); White Blood Cell Count 10.4 X10^3/uL (4.5-11.0)
[2019-05-21] LABS: INR 1.5 (0.9-1.3); Prothrombin Time 17.2 SECONDS (10.1-12.7)
[2019-05-21 00:03] LABS: PTT Partial Thromboplastin Tim 39 SECONDS (26.4-36.2)
[2019-05-21 00:04] LABS: Alanine Aminotransferase 10 IU/L (<35); Albumin 3.7 g/dL (3.5-5.0); Albumin Globulin Ratio 1.2 (1.0-2.8); Alkaline Phosphatase 118 U/L (38-126); Aspartate Aminotransferase 16 IU/L (14-36); Bilirubin Total 0.3 mg/dL (0.2-1.3); Blood Urea Nitrogen 10 mg/dL (7-17); Calcium 9.3 mg/dL (8.4-10.2); Carbon Dioxide 30 mmol/L (22-32); Chloride 101 mmol/L (98-107); Estimated Glomerular Filt Rate 53.2 mL/min (>60); Globulin 3.2 g/dL (1.7-4.1); Glucose 147 mg/dL (80-110); HEMOLYSIS < 15 (0-50); Lipase 78 U/L (23-300); Potassium 3.8 mmol/L (3.4-5.1); Sodium 139 mmol/L (137-145); Total Protein 6.9 g/dL (6.3-8.2)
[2019-05-21 00:13] LABS: NT-proBNP (BNP-Adult 18+) 1300 pg/mL (<450)
[2019-05-21 00:16] LABS: Troponin I < 0.012 ng/mL (0.01-0.034)
[2019-05-21 00:19] LABS: Procalcitonin < 0.05 ng/mL (<0.5)
[2019-05-21 00:45] VITALS: BP 148/68; PULSE 69; RESP 14; TEMP 36.6; O2SAT 97
== END 2019-05-21 00:55 | disposition home or self-care (01) ==
PROVIDERS: Emergency Provider Emergency Medicine; Family Provider Internal Medicine; PCP Internal Medicine
DX: R06.02 Shortness of breath (principal)
CPT/HCPCS: 36415; 71045; 80053; 83690; 83880; 84145; 84484; 85025; 85610; 85730; 93005; 99283; 99285

== ENCOUNTER → 2019-05-27 06:55 | Outpatient (ROUT) | payer MEDICARE, SELFPAY ==
[2019-05-27 07:53] LABS: BUN Creatinine Ratio 7.8 (6-22); Blood Urea Nitrogen 7 mg/dL (7-17); Calcium 9.2 mg/dL (8.4-10.2); Carbon Dioxide 33 mmol/L (22-32); Chloride 100 mmol/L (98-107); Estimated Glomerular Filt Rate > 60.0 mL/min (>60); Glucose 104 mg/dL (80-110); HEMOLYSIS < 15 (0-50); Potassium 3.4 mmol/L (3.4-5.1); Sodium 139 mmol/L (137-145)
== END ==
PROVIDERS: Family Provider Internal Medicine; PCP Internal Medicine; Visit Provider Internal Medicine
DX: E78.5 Hyperlipidemia, unspecified (principal); I10 Essential (primary) hypertension; M85.80 Other specified disorders of bone density and structure, unspecified site
CPT/HCPCS: 36415; 80048

== ENCOUNTER → 2019-06-07 09:06 | Outpatient (CLI) | payer MEDICARE, SELFPAY ==
--- NOTE | 2019-06-07 | DI.ECHO.S_ITS ---
[facility]---------+ [facility] +---------+ : : [address] : : : : [id number] : : : : Phone: [phone] Echocardiogram Report + + :Name: SURAJ WEBER Study Date: 06/07/2019 Height: 68 in : :[facility] Exam Location: IS Weight: 229 lb : : Gender: Female BSA: 2.2 m2 : :: 1935 Age: 83 yrs BP: 132/82 mmHg: :Reason For Study: SOB : :Ordering Physician: Carissa Chen Performed By: Nithya Page : + + Interpretation Summary Left ventricular systolic function is low normal with the ejection fraction visually estimated to be 50 to 60% with considerable magx-eo-[id number] variability due to the mildly rapid atrial fibrillation and is unchanged compared to the previous study. There are no focal wall motion abnormalities. The right ventricle is borderline dilated and systolic function is mildly reduced, but appears slightly smaller compared to the previous study. The right ventricular systolic pressure is estimated to be at least 23 mmHg based on an estimated right atrial pressure of 3 mm Hg, and is likely similar to the previous study. There is mild biatrial enlargement. The left atrium has mildly increased in size since the prior echo exam. There is mild to moderate tricuspid regurgitation and mild pulmonic regurgitation that are slightly more prominent compared to the previous study. There is no other significant valvular heart disease. The patient was in atrial fibrillation with heart rates between 92-124 bpm during the exam which is slightly faster compared to the previous study and could represent a possible cause of her dyspnea. Procedure: A two-dimensional transthoracic echocardiogram with color flow and Doppler was performed. The study quality was technically adequate. Comparison is made with the echocardiogram of 1937. The patient was in atrial fibrillation with heart rates between 92-124 bpm during the exam. This is slightly faster compared to the previous study. Left Ventricle: The left ventricle is normal in size and wall thickness. Left ventricular systolic function is low normal. Left ventricular ejection fraction is estimated to be 50 to 60% with considerable dnbw-uc-doei variability due to the mildly rapid atrial fibrillation. This is unchanged compared to the previous study. There are no focal wall motion abnormalities. Diastolic function could not be accurately assessed due to atrial fibrillation. Right Ventricle: The right ventricle is borderline dilated. Right ventricular systolic function is mildly reduced. This is slightly smaller compared to the previous study. Atria: There is mild biatrial enlargement. The left atrium has mildly increased in size since the prior echo exam. The interatrial septum is intact with no evidence for an atrial septal defect. Doppler interrogation and injection of saline echo contrast shows no evidence for an interatrial shunt. Mitral Valve: There is moderate mitral annular calcification. The mitral valve leaflets appear mildly thickened, but open well. There is trace mitral regurgitation. Aortic Valve: The aortic valve is trileaflet. There is mild aortic valve sclerosis. The aortic valve is slightly calcified. The aortic valve opens well. There is no aortic valve stenosis. There is trace aortic regurgitation. Tricuspid Valve: The tricuspid valve is normal in structure and function. There is mild to moderate tricuspid regurgitation. The right ventricular systolic pressure is estimated to be at least 23 mmHg based on an estimated right atrial pressure of 3 mm Hg. This is slightly more prominent compared to the previous study. Pulmonic Valve: The pulmonic valve is not well seen, but is grossly normal. There is mild pulmonic regurgitation. This is slightly more prominent compared to the previous study. There is no other significant valvular heart disease. Great Vessels: The aortic root is normal size. The ascending aorta is normal in size. The pulmonary artery is not well visualized, but is probably normal size. The IVC is of normal diameter and collapses greater than 50% with a sniff. This suggests a low right atrial pressure of 3 mm Hg. Pericardium/ Pleura There is no pericardial effusion. There is no pleural effusion. MMode/2D Measurements & Calculations LVIDd: 4.1 cm LVOT diam: 2.1 cm LVIDs: 3.6 cm Ao root diam: 3.2 cm FS: 12.9 % asc Aorta Diam: 3.3 cm IVSd: 1.1 cm LVPWd: 0.77 cm LV esquivel. diameter/BSA (cm/m^2): 1.9 LV sys. diameter/BSA (cm/m^2): 1.7 LA A2 area: 23.3 cm2 RA long axis: 6.5 cm LA A4 area: 28.5 cm2 RA area: 22.8 cm2 LA length (vol): 6.6 cm RA vol: 67.7 ml LA vol: 84.8 ml RA : 31.3 ml/m2 LA vol index: 39.2 ml/m2 IVC diam: 1.3 cm RVD1 (basal): 4.5 cm RVD2 (mid): 3.2 cm Doppler Measurements & Calculations Ao V2 max: 104.1 cm/sec LVOT Max Glenn: 48.9 cm/sec Ao V2 mean: 72.1 cm/sec LV V1 max P.96 mmHg Ao max P.3 mmHg LV V1 VTI: 7.1 cm Ao mean P.3 mmHg CAT(I,D): 1.7 cm2 Ao V2 VTI: 14.9 cm CAT(V,D): 1.7 cm2 sev ratio: 0.48 CAT indexed to BSA (cm^2/m^2): 0.80 MV E max glenn: 81.5 cm/sec TR max glenn: 222.0 cm/sec Med Peak E' Glenn: 9.2 cm/sec TR max P.7 mmHg E/E' med: 8.9 PA V2 max: 65.6 cm/sec Lat Peak E' Glenn: 12.7 cm/sec PA V2 mean: 52.3 cm/sec E/E' lat: 6.4 PA mean P.2 mmHg E/e' average: 7.6 PA Accel Time: 0.11 sec MV P1/2t: 49.8 msec MV P1/2t max glenn: 80.7 cm/sec SV(LVOT): 25.6 ml MVA(P1/2t): 4.4 cm2 Reading Physician:RAE
== END ==
PROVIDERS: Family Provider Internal Medicine; PCP Internal Medicine; Referring Provider Internal Medicine; Visit Provider Internal Medicine
DX: I08.2 Rheumatic disorders of both aortic and tricuspid valves (principal); I48.91 Unspecified atrial fibrillation; R06.02 Shortness of breath
CPT/HCPCS: 93306

== ENCOUNTER → 2019-07-26 07:19 | Outpatient (ROUT) | payer MEDICARE, SELFPAY ==
[2019-07-26 08:43] LABS: Alanine Aminotransferase 12 IU/L (<35); Albumin Globulin Ratio 1.3 (1.0-2.8); Alkaline Phosphatase 116 U/L (38-126); Aspartate Aminotransferase 24 IU/L (14-36); BUN Creatinine Ratio 14.2 (6-22); Bilirubin Total 0.4 mg/dL (0.2-1.3); Blood Urea Nitrogen 15 mg/dL (7-17); Calcium 9.8 mg/dL (8.4-10.2); Carbon Dioxide 32 mmol/L (22-32); Chloride 101 mmol/L (98-107); Cholesterol 127 mg/dL (140-199); Estimated Glomerular Filt Rate 49.8 mL/min (>60); Globulin 3.2 g/dL (1.7-4.1); Glucose 118 mg/dL (80-110); HDL Cholesterol 43 mg/dL (40-60); HEMOLYSIS < 15 (0-50); LDL Cholesterol Calculated 63 mg/dL (<100); Potassium 3.9 mmol/L (3.4-5.1); Sodium 139 mmol/L (137-145); Total Protein 7.2 g/dL (6.3-8.2); Triglycerides 105 mg/dL (35-150)
== END ==
PROVIDERS: Family Provider Internal Medicine; PCP Internal Medicine; Visit Provider Internal Medicine
DX: I10 Essential (primary) hypertension (principal); E78.5 Hyperlipidemia, unspecified
CPT/HCPCS: 36415; 80053; 80061

== ENCOUNTER → 2019-09-04 14:14 | Outpatient (CLI) | payer MEDICARE, SELFPAY ==
--- NOTE | 2019-09-04 | DI.RAD.S_ITS ---
PROCEDURE: XR CHEST 2V INDICATIONS: Pulmonary fibrosis, unspecified TECHNIQUE: 2 views of the chest were acquired. COMPARISON: [facility], CR, XR CHEST 1V, 05/20/2019, 23:31. [facility], CR, XR CHEST 1V, 03/13/2019, 11:45. FINDINGS: Surgical changes and devices: None. Lungs and pleura: Lungs are abnormal with an interstitial prominence but a definite loss of lung volume and fibrotic change pattern is not present. No lung mass is found. No pleural thickening is identified. No pleural effusions or pneumothorax. Mediastinum: Mediastinal contours are normal. Heart size is normal. Bones and chest wall: No suspicious bony abnormalities. Soft tissues appear unremarkable. IMPRESSION: Large lung volumes, suspect COPD. Mild interstitial prominence consistent with long-standing smoking history. By this examination a alveolitis pattern with pulmonary fibrosis is not found. Dictated by: Willie Weeks M.D. on 09/04/2019 at 15:39 Approved by: Willie Weeks M.D. on 09/04/2019 at 15:40
== END ==
PROVIDERS: Family Provider Internal Medicine; PCP Internal Medicine; Referring Provider Internal Medicine; Visit Provider Internal Medicine
DX: J84.10 Pulmonary fibrosis, unspecified (principal); R05 Cough
CPT/HCPCS: 71046

== ENCOUNTER 2019-10-07 15:15 | Emergency (ER) | payer MEDICARE, SELFPAY ==
[2019-10-07] VITALS (7 sets, daily range): BP systolic 119–131; BP diastolic 58–69; PULSE 108–126; RESP 13–30; TEMP 36.6; O2SAT 96–98; BMI 37.5
--- NOTE | 2019-10-07 15:51 | DI.RAD.S_ITS ---
PROCEDURE: XR CHEST 1V INDICATIONS: chest pain TECHNIQUE: One view of the chest was acquired. COMPARISON: [facility], CR, XR CHEST 1V, 05/20/2019, 23:31. FINDINGS: Surgical changes and devices: None. Lungs and pleura: Lungs are clear. No pleural effusions or pneumothorax. Mediastinum: Mediastinal contours appear normal. Heart size is normal. Bones and chest wall: No suspicious bony lesions. Overlying soft tissues appear unremarkable. IMPRESSION: No acute cardiopulmonary disease process. Dictated by: Abigail Sands MD, PhD on 10/07/2019 at 16:31 Approved by: Abigail Sands MD, PhD on 10/07/2019 at 16:32
[2019-10-07 16:02] LABS: Add Manual Diff / Slide Review NO; Basophils Absolute Auto 100 /uL (0-100); Basophils Percent Auto 0.9 % (0-2); Eosinophils Absolute Auto 400 /uL (0-450); Eosinophils Percent Auto 4.3 % (2-4); Hematocrit 37.4 % (36-46); Hemoglobin 12.1 g/dL (12.0-16.0); Lymphocytes Absolute Auto 3200 /uL (1100-4500); Lymphocytes Percent Auto 29.9 % (25-40); Mean Corpuscular HGB Conc 32.4 % (30-36); Mean Corpuscular Hemoglobin 27.6 PG (26-34); Mean Corpuscular Volume 85.2 fL (80-100); Monocytes Absolute Auto 700 /uL (0-900); Monocytes Percent Auto 6.9 % (3-14); Neutrophils Absolute Auto 6100 /uL (1500-7000); Platelet Count 357 X10^3/uL (150-400); Red Blood Cell Count 4.39 X10^6/uL (4.0-5.2); Red Cell Distribution Width 14.4 % (11.6-14.8); White Blood Cell Count 10.6 X10^3/uL (4.5-11.0)
[2019-10-07 16:03] LABS: INR 1.8 (0.9-1.3); Prothrombin Time 20.2 SECONDS (10.1-12.7)
[2019-10-07 16:06] LABS: PTT Partial Thromboplastin Tim 44 SECONDS (26.4-36.2)
[2019-10-07 16:07] LABS: Alanine Aminotransferase 11 IU/L (<35); Albumin 4.3 g/dL (3.5-5.0); Albumin Globulin Ratio 1.3 (1.0-2.8); Alkaline Phosphatase 144 U/L (38-126); Aspartate Aminotransferase 24 IU/L (14-36); BUN Creatinine Ratio 12.7 (6-22); Bilirubin Total 0.4 mg/dL (0.2-1.3); Blood Urea Nitrogen 15 mg/dL (7-17); Calcium 9.9 mg/dL (8.4-10.2); Carbon Dioxide 31 mmol/L (22-32); Chloride 101 mmol/L (98-107); Creatine Kinase 46 U/L (30-135); Globulin 3.3 g/dL (1.7-4.1); Glucose 122 mg/dL (80-110); HEMOLYSIS < 15 (0-50); Lipase 154 U/L (23-300); Potassium 3.7 mmol/L (3.4-5.1); Sodium 139 mmol/L (137-145); Total Protein 7.6 g/dL (6.3-8.2)
[2019-10-07 16:17] LABS: Troponin I < 0.012 ng/mL (0.01-0.034)
--- NOTE | 2019-10-07 16:34 | ED.CHESTPAIN ---
HPI - Chest Pain General Chief Complaint: Chest Pain Stated Complaint: Chest Pain Time Seen by Provider: 10/07/19 15:31 Source: patient Mode of arrival: Wheelchair Limitations: no limitations History of Present Illness HPI narrative: Patient is an 83-year-old female with history of atrial fibrillation presenting with chest pain which started 2 or 3 hours ago. This started while she was cleaning. She felt like there was an X on her chest and felt it went straight through to her back. She denies ever feeling like this before She says that she has been short of breath but also suffers from COPD he says her breathing isn't any worse today than it has been previously. Her vitals were checked by staff and they were quite concerned with elevated heart rate and possible blood pressure as well and she was sent to the ED for further evaluation She denies any dizziness or heart palpitations. She is in atrial fibrillation with a controlled heart rate. Related Data Home Medications Medication Instructions Recorded Confirmed gabapentin 300 mg PO BID 08/07/17 03/13/19 Amitiza 24 mcg PO DAILY 12/07/17 03/13/19 furosemide 20 mg PO DAILY 12/07/17 03/13/19 aspirin 81 mg PO DAILY 12/26/17 03/13/19 metoprolol succinate 50 mg PO DAILY 12/26/17 03/13/19 doxepin 100 mg PO BEDTIME 01/23/18 03/13/19 diltiazem HCl 180 mg PO DAILY 10/10/18 03/13/19 escitalopram oxalate 20 mg PO DAILY 10/10/18 03/13/19 gabapentin 600 mg PO BEDTIME 10/10/18 03/13/19 nystatin 1 applic TOPICAL BID 10/10/18 03/13/19 omeprazole 20 mg PO DAILY 10/10/18 03/13/19 potassium chloride 10 meq PO QPM 10/10/18 03/13/19 Xarelto 20 mg PO DAILY 01/09/19 03/13/19 acetaminophen 325 mg PO Q6H PRN 01/09/19 03/13/19 calcium carbonate [Oyster Shell 500 mg PO DAILY 01/09/19 03/13/19 Calcium 500] cholecalciferol (vitamin D3) 2,000 unit PO DAILY 01/09/19 03/13/19 [Vitamin D3] rosuvastatin 40 mg PO DAILY 01/09/19 03/13/19 Previous Rx's Medication Instructions Recorded polyethylene glycol 3350 17 gm PO DAILY #1 pkg 10/13/18 oxycodone 5 - 10 mg PO Q4H PRN #50 tab 01/09/19 ciprofloxacin HCl 500 mg PO Q12H #14 tab 03/13/19 Allergies Allergy/AdvReac Type Severity Reaction Status Date / Time Sulfa (Sulfonamide Allergy Intermediate Rash Verified 03/13/19 11:08 Antibiotics) Review of Systems Review of Systems ROS Unobtainable: All systems reviewed & are unremarkable except as noted in HPI and below Constitutional Constitutional: Denies chills, Denies fever(s), Denies lethargy and Denies weakness Eyes Eyes: Denies change in vision, Denies eye discharge, Denies irritation and Denies loss of vision ENT Ears, Nose, Mouth, and Throat: Denies change in voice, Denies neck pain and Denies sore throat Cardiovascular Cardiovascular: Reports as per HPI, Reports chest pain and Reports dyspnea Respiratory Respiratory: Reports as per HPI, Denies chest congestion and Reports dyspnea Gastrointestinal Gastrointestinal: Denies abdominal pain, Denies change in bowel habits, Denies diarrhea, Denies nausea and Denies vomiting Musculoskeletal Musculoskeletal: Denies neck pain Integumentary/Breasts Skin/Breast: Denies pruritus, Denies erythema, Denies rash and Denies wounds Neurologic Neurologic: Denies confusion, Denies loss of vision and Denies weakness Psychiatric Psychiatric: Denies anxiety, Denies confusion, Denies depression, Denies homicidal ideation and Denies suicidal ideation Patient History Medical History (Updated 10/07/19 @ 18:51 by Ana M Martinez DO) Chronic pain (Chronic) Dementia (Acute) Depression (Chronic) GERD (gastroesophageal reflux disease) (Chronic) Herpes encephalitis (Resolved) History of lumbar puncture (Acute 08/29/18) Hyperlipidemia (Chronic) Hypertension (Chronic) Hypoxia (Acute 10/10/18) Impaired fasting glucose (Chronic) Pulmonary fibrosis (Chronic) Stroke (Suspected) Surgical History History of ankle surgery (Acute 10/11/18) Social History details: two years ago number of children: 2 household members: none lives independently: Yes caregiver/support person: Yes housing: apartment other: Denies alcohol drinking or cigarette smoking. Her son of overdose 1 w Smoking Status: Former smoker alcohol intake: current Smoking Status: Former smoker alcohol intake frequency: holidays/special occasions only Substance Use Type: does not use Exam Initial Vital Signs Initial Vital Signs: Vital Signs Pulse Rate 126 H 10/07/19 15:30 Respiratory Rate 18 10/07/19 15:30 Blood Pressure 131/69 10/07/19 15:30 Pulse Oximetry 97 10/07/19 15:30 GENERAL: Alert overweight female and in no acute distress. HEENT: Head atraumatic,EOMI, pupils reactive, face symmetric, moist mucous membranes CARDIOVASCULAR: Irregularly irregular RESPIRATORY: Breath sounds equal bilaterally, no wheezes rales or rhonchi. ABDOMEN: Soft, nontender. Normoactive bowel sounds all 4 quadrants. No guarding or rebound. EXTREMITIES: Normal range of motion, no clubbing or edema. Neurovascularly intact NEUROLOGICAL: Alert and oriented x4.Normal gait and speech. SKIN: Warm, dry, no laceration, no petechiae, no rashes or lesions. Course Orders Ordered: ED Orders 10/07/19 15:26 EKG-12 Lead Routine 10/07/19 15:28 Complete Blood Count AUTO DIFF Stat Comprehensive Metabolic Panel Stat Lipase Stat NT-proBNP (BNP-Adult 18+) Stat Partial Thromboplastin Time Stat Prothrombin Time INR Stat Troponin & CK Cardiac Panel Stat 10/07/19 15:51 XR chest 1V Stat 10/07/19 17:25 Troponin I Stat Vital Signs Vital signs: Vital Signs - 8 hr 10/07/19 15:30 10/07/19 15:35 10/07/19 16:23 Temperature 97.9 F Pulse Rate 126 H 114 H Respiratory Rate 18 13 Blood Pressure 131/69 Pulse Oximetry 97 98 10/07/19 16:30 10/07/19 17:00 10/07/19 17:29 Temperature Pulse Rate 118 H 108 H 108 H Respiratory Rate 30 H Blood Pressure 122/58 L 128/61 Pulse Oximetry 97 96 10/07/19 17:30 Temperature Pulse Rate Respiratory Rate 23 Blood Pressure 119/62 Pulse Oximetry MDM - Chest Pain Lab Data Attestation: I reviewed the patient's lab results. Result diagrams: 10/07/19 15:28 10/07/19 15:28 Labs: Lab Results 10/07/19 10/07/19 10/07/19 Range/Units 15:28 15:28 15:28 WBC 10.6 (4.5-11.0) X10^3/uL RBC 4.39 (4.0-5.2) X10^6/uL Hgb 12.1 (12.0-16.0) g/dL Hct 37.4 (36-46) % MCV 85.2 (80-100) fL MCH 27.6 (26-34) PG MCHC 32.4 (30-36) % RDW 14.4 (11.6-14.8) % Plt Count 357 (150-400) X10^3/uL Neut % (Auto) 58.0 (50-75) % Lymph % (Auto) 29.9 (25-40) % [place] % (Auto) 6.9 (3-14) % Eos % (Auto) 4.3 H (2-4) % Baso % (Auto) 0.9 (0-2) % Neut # (Auto) 6100 (5382-7881) /uL Lymph # (Auto) 3200 (0421-4809) /uL [place] # (Auto) 700 (0-900) /uL Eos # (Auto) 400 (0-450) /uL Baso # (Auto) 100 (0-100) /uL PT 20.2 H (10.1-12.7) SECONDS INR 1.8 H (0.9-1.3) APTT 44 H D (26.4-36.2) SECONDS Sodium 139 (137-145) mmol/L Potassium 3.7 (3.4-5.1) mmol/L Chloride 101 (98-107) mmol/L Carbon Dioxide 31 (22-32) mmol/L BUN 15 (7-17) mg/dL Creatinine 1.18 H (0.52-1.04) mg/dL Estimated GFR 44.0 L (>60) mL/min BUN/Creatinine Ratio 12.7 (6-22) Glucose 122 H (80-110) mg/dL Calcium 9.9 (8.4-10.2) mg/dL Total Bilirubin 0.4 (0.2-1.3) mg/dL AST 24 (14-36) IU/L ALT 11 (<35) IU/L Alkaline Phosphatase 144 H (38-126) U/L Total Creatine Kinase 46 (30-135) U/L CK-MB (CK-2) TNP CK-MB (CK-2) Rel Index TNP Troponin I < 0.012 (0.01-0.034) ng/mL NT-Pro-B Natriuret Pep (<450) pg/mL Total Protein 7.6 (6.3-8.2) g/dL Albumin 4.3 (3.5-5.0) g/dL Globulin 3.3 (1.7-4.1) g/dL Albumin/Globulin Ratio 1.3 (1.0-2.8) Lipase 154 (23-300) U/L 10/07/19 10/07/19 Range/Units 15:28 17:25 WBC (4.5-11.0) X10^3/uL RBC (4.0-5.2) X10^6/uL Hgb (12.0-16.0) g/dL Hct (36-46) % MCV (80-100) fL MCH (26-34) PG MCHC (30-36) % RDW (11.6-14.8) % Plt Count (150-400) X10^3/uL Neut % (Auto) (50-75) % Lymph % (Auto) (25-40) % [place] % (Auto) (3-14) % Eos % (Auto) (2-4) % Baso % (Auto) (0-2) % Neut # (Auto) (5243-1761) /uL Lymph # (Auto) (3825-7871) /uL [place] # (Auto) (0-900) /uL Eos # (Auto) (0-450) /uL Baso # (Auto) (0-100) /uL PT (10.1-12.7) SECONDS INR (0.9-1.3) APTT (26.4-36.2) SECONDS Sodium (137-145) mmol/L Potassium (3.4-5.1) mmol/L Chloride (98-107) mmol/L Carbon Dioxide (22-32) mmol/L BUN (7-17) mg/dL Creatinine (0.52-1.04) mg/dL Estimated GFR (>60) mL/min BUN/Creatinine Ratio (6-22) Glucose (80-110) mg/dL Calcium (8.4-10.2) mg/dL Total Bilirubin (0.2-1.3) mg/dL AST (14-36) IU/L ALT (<35) IU/L Alkaline Phosphatase (38-126) U/L Total Creatine Kinase (30-135) U/L CK-MB (CK-2) CK-MB (CK-2) Rel Index Troponin I < 0.012 (0.01-0.034) ng/mL NT-Pro-B Natriuret Pep 399 (<450) pg/mL Total Protein (6.3-8.2) g/dL Albumin (3.5-5.0) g/dL Globulin (1.7-4.1) g/dL Albumin/Globulin Ratio (1.0-2.8) Lipase (23-300) U/L Imaging Data Chest x-ray: Radiologist's Impression: PROCEDURE: XR CHEST 1V INDICATIONS: chest pain TECHNIQUE: One view of the chest was acquired. COMPARISON: [facility], , XR CHEST 1V, 05/20/2019, 23:31. FINDINGS: Surgical changes and devices: None. Lungs and pleura: Lungs are clear. No pleural effusions or pneumothorax. Mediastinum: Mediastinal contours appear normal. Heart size is normal. Bones and chest wall: No suspicious bony lesions. Overlying soft tissues appear unremarkable. IMPRESSION: No acute cardiopulmonary disease process. Dictated by: Abigail Sands MD, PhD on 10/07/2019 at 16:31 ECG Data Attestation: I personally reviewed and interpreted this ECG as follows: Prior ECG tracings: available for review Interpretation: Atrial fibrillation rate [address] changes with PVCs similar to previous EKG MDM Narrative Medical decision making narrative: Patient has 2-troponins her pain as completely resolve she remains in AFib with a low risk heart score. At this time I recommend she follow-up with her primary care doctor for further cardiac testing. Discharge Plan Departure Patient Disposition: Home Clinical Impression: Atypical chest pain Atrial fibrillation Qualifiers: Atrial fibrillation type: unspecified chronic Qualified Code(s): I48.20 - Chronic atrial fibrillation, unspecified Discharge Date/Time: 10/07/19 19:05 Instructions: DI for Atypical Chest Pain Activity Restrictions/Additional Instructions: *You have been diagnosed with atypical chest pain atrial fibrillation *What to do: At this time he may require further cardiac testing with her primary care doctor *Continue to take medications as directed *Follow up with your primary care provider in 2-3 days *Return to ER if you should have worsening chest pain, palpitations shortness of breath [or] any new, worsening or concerning symptoms Prescriptions: No Action gabapentin 300 mg Capsule 300 mg PO BID RF: 0 metoprolol succinate 50 mg tablet extended release 24 hr 50 mg PO DAILY RF: 0 aspirin 81 mg Tablet,Delayed Release (Dr/Ec) 81 mg PO DAILY RF: 0 gabapentin 600 mg Tablet 600 mg PO BEDTIME RF: 0 diltiazem HCl 180 mg capsule,extended release 24hr 180 mg PO DAILY RF: 0 nystatin 100,000 unit/gram Powder 1 applic TOPICAL BID RF: 0 escitalopram oxalate 20 mg tablet 20 mg PO DAILY RF: 0 potassium chloride 10 mEq Tablet Extended Release 10 meq PO QPM RF: 0 omeprazole 20 mg capsule,delayed release(DR/EC) 20 mg PO DAILY RF: 0 polyethylene glycol 3350 17 gram Powder In Packet 17 gm PO DAILY Qty: 1 RF: 0 furosemide 20 mg Tablet 20 mg PO DAILY RF: 0 Amitiza 24 mcg Capsule 24 mcg PO DAILY RF: 0 doxepin 100 mg Capsule 100 mg PO BEDTIME RF: 0 oxycodone 5 mg tablet 5 - 10 mg PO Q4H PRN (Reason: pain) Qty: 50 RF: 0 rosuvastatin 40 mg Tablet 40 mg PO DAILY RF: 0 cholecalciferol (vitamin D3) [Vitamin D3] 2,000 unit Tablet 2,000 unit PO DAILY RF: 0 Xarelto 20 mg Tablet 20 mg PO DAILY RF: 0 acetaminophen 325 mg tablet 325 mg PO Q6H PRN (Reason: Pain) RF: 0 calcium carbonate [Oyster Shell Calcium 500] 500 mg calcium (1,250 mg) Tablet 500 mg PO DAILY RF: 0 ciprofloxacin HCl 500 mg tablet 500 mg PO Q12H Qty: 14 RF: 0 Referrals: Carissa Chen MD [Primary Care Provider] -
[2019-10-07 17:06] LABS: NT-proBNP (BNP-Adult 18+) 399 pg/mL (<450)
[2019-10-07 18:12] LABS: Troponin I < 0.012 ng/mL (0.01-0.034)
== END 2019-10-07 19:05 | disposition home or self-care (01) ==
PROVIDERS: Emergency Provider Emergency Medicine; Family Provider Internal Medicine; PCP Internal Medicine
DX: R07.89 Other chest pain (principal); I48.20 Chronic atrial fibrillation, unspecified; J44.9 Chronic obstructive pulmonary disease, unspecified
CPT/HCPCS: 36415; 71045; 80053; 82550; 83690; 83880; 84484; 85025; 85610; 85730; 93005; 93010; 99284

== ENCOUNTER → 2019-11-07 16:14 | Outpatient (ROUT) | payer MEDICARE, SELFPAY ==
[2019-11-07 17:11] LABS: TSH w/ Reflex to FT4 2.46 uIU/mL (0.47-4.68)
[2019-11-07 17:32] LABS: Vitamin B12 286 pg/mL (239-931)
== END ==
PROVIDERS: Visit Provider Internal Medicine
DX: R53.82 Chronic fatigue, unspecified (principal)
CPT/HCPCS: 82607; 84443

== ENCOUNTER → 2019-11-09 10:02 | Outpatient (ROUT) | payer MEDICARE, SELFPAY ==
[2019-11-09 10:09] LABS: Bacteria Urine None Seen; RBC Urine None Seen (0-5/HPF)
[2019-11-09 10:14] LABS: Appearance Urine UA CLEAR; Bilirubin Urine UA NEGATIVE (NEGATIVE); Color Urine UA YELLOW; Glucose Urine UA NEGATIVE (Negative); Ketones Urine UA NEGATIVE (NEGATIVE); Leukocyte Esterase Urine UA TRACE (NEGATIVE); Nitrite Urine UA NEGATIVE (Negative); Occult Blood Urine UA NEGATIVE (Negative); Protein Urine UA NEGATIVE (Negative); Specific Gravity Urine UA <=1.005 (1.000-1.035); Urobilinogen Urine UA 0.2 E.U./dL (0.2)
[2019-11-09 10:25] LABS: Culture Indicated Urine Specimen Cultured; WBC Urine 0-1/HPF (0-5/HPF)
== END ==
PROVIDERS: Family Provider Internal Medicine; PCP Internal Medicine; Visit Provider Internal Medicine
DX: R30.0 Dysuria (principal)
CPT/HCPCS: 81001; 87086

== ENCOUNTER → 2019-11-29 09:04 | Outpatient (CLI) | payer MEDICARE, SELFPAY ==
--- NOTE | 2019-11-29 | DI.NM.S_ITS ---
PROCEDURE: NM ERNIE PERF SPECT R&S PHARM Rest and pharmacological stress myocardial perfusion SPECT with gated imaging and ejection fraction RADIOPHARMACEUTICAL: 24.5 mCi Tc-99m tetrafosmin IV at rest and 26.3 mCi Tc-99m tetrafosmin IV at peak effect of pharmacological stress. [id number] was performed. INDICATIONS: Chest pain, unspecified TECHNIQUE: Radiopharmaceutical was injected at peak stress test, and also at rest. SPECT images were obtained. SPECT myocardial perfusion images were displayed in short axis, horizontal long axis, and vertical long axis views. Gated images were reviewed using [employer] software. COMPARISON: None. CARDIAC STRESS: A pharmacologic stress test was performed under the supervision of an attending staff, using an infusion of lexiscan 0.4mg IV X1. Hemodynamic data: There is normal blood pressure and heart rate response to pharmacologic stress. Symptoms: The patient denied anginal chest pain. Aminophylline: none EKG: Resting ECG shows atrial fibrillation with isolated PVCs. No ST-T changes with lexiscan. FINDINGS: Raw data: There is good myocardial uptake of radiotracer. No significant motion artifacts. Yakh-pl-[id number] ratio is 0.36 (normal is less than 0.38 for tetrafosmin tracer). Left ventricle function: Gated images demonstrate normal left ventricular wall thickening. No segmental wall motion abnormalities. No transient ischemic dilation; TID is 0.86 (normal less than 1.3). Left ventricle resting end diastolic volume is 60 mL. Left ventricle stress ejection fraction is 74%; normal range is above 45%. Myocardial perfusion: There is a mildly intense defect in the mid-distal anterior wall that improves with stress suggesting breast attenuation artifacts than true ischemia or infarction. Prone images couldn't be obtained. IMPRESSION: Low risk, probably normal pharmaceutical nuclear stress test 1) No perfusion evidence of ischemia. There is a mildly intense defect in the mid-distal anterior wall that improves with stress suggesting breast attenuation artifacts than true ischemia or infarction. 2) Normal left ventricular size, wall motion, and systolic function (EF post stress 74%). 3) No ECG evidence of ischemia or infarction. 4) No angina during the study. 5) Compared to the pharm nuc stress done 02/01/2018, basal lateral defect is no longer seen on today's study. Dictated by: Jose Parham MD on 12/03/2019 at 13:00 Approved by: Jose Parham MD on 12/03/2019 at 13:06
--- NOTE | 2019-11-29 09:31 | DI.ECHO.S_ITS ---
Echocardiogram Report + + :Name: SURAJ WEBER Study Date: 11/29/2019 Height: 68 in : :[facility] Weight: 250 lb : : Gender: Female BSA: 2.2 m2 : :: 1935 Age: 84 yrs BP: 112/70 mmHg: :Reason For Study: CHEST PAIN : : Performed By: Stefan Lew : :Referring: KILLIAN DONAHUE : + + Interpretation Summary The left ventricle is normal in size. Left ventricular systolic function is normal without focal wall motion abnormalities. The ejection fraction is estimated to be 55-60%. LVEF is stable. Diastolic function could not be accurately assessed due to atrial fibrillation. The right ventricle is normal size. Right ventricular systolic function is borderline reduced. The right ventricular systolic pressure is estimated to be at least 33 mmHg based on an estimated right atrial pressure of 3 mm Hg. The left atrium is severely dilated. The right atrium is mildly dilated. There is no significant valvular heart disease. The aortic root is normal size. Procedure: A two-dimensional transthoracic echocardiogram with color flow and Doppler was performed. The study quality was technically difficult. Comparison is made with the echocardiogram of 06/07/19. The patient was in atrial fibrillation with controlled ventricular rate during the exam. The patient had a heart rate of 92-114 beats per minute. Left Ventricle: The left ventricle is normal in size. There is normal left ventricular wall thickness. Left ventricular systolic function is normal without focal wall motion abnormalities. The ejection fraction is estimated to be 55-60%. Diastolic function could not be accurately assessed due to atrial fibrillation. Right Ventricle: The right ventricle is normal size. Right ventricular systolic function is borderline reduced. Atria: The left atrium is severely dilated. The right atrium is mildly dilated. The interatrial septum is intact with no evidence for an atrial septal defect. Mitral Valve: There is mild mitral annular calcification. There is trace mitral regurgitation. Aortic Valve: The aortic valve is trileaflet. The aortic valve is slightly calcified. The aortic valve opens well. There is trace aortic regurgitation. Tricuspid Valve: The tricuspid valve is normal in structure and function. There is mild tricuspid regurgitation. The right ventricular systolic pressure is estimated to be at least 33 mmHg based on an estimated right atrial pressure of 3 mm Hg. Pulmonic Valve: The pulmonic valve is normal in structure and function. There is trace pulmonic regurgitation. There is no significant valvular heart disease. Great Vessels: The aortic root is normal size. The dimensions of the ascending aorta are normal. The pulmonary artery is normal size. The IVC is of normal diameter and collapses greater than 50% with a sniff. This suggests a low right atrial pressure of 3 mm Hg. Pericardium/ Pleura There is no pericardial effusion. There is no pleural effusion. MMode/2D Measurements & Calculations LVIDd: 4.3 cm LVOT diam: 2.0 cm LVIDs: 2.9 cm Ao root diam: 3.2 cm FS: 32.7 % asc Aorta Diam: 3.2 cm EPSS: 0.36 cm Ao Arch Diam (Prox Trans): 3.0 cm IVSd: 0.98 cm LVPWd: 0.83 cm LV esquivel. diameter/BSA (cm/m^2): 1.9 LV sys. diameter/BSA (cm/m^2): 1.3 LA dimension: 4.7 cm RA long axis: 6.1 cm LA A2 area: 37.7 cm2 RA area: 22.6 cm2 LA A4 area: 29.9 cm2 RA vol: 70.7 ml LA length (vol): 7.0 cm RA : 31.5 ml/m2 LA vol: 137.6 ml IVC diam: 1.5 cm LA vol index: 61.2 ml/m2 RVD1 (basal): 4.0 cm RVD2 (mid): 4.0 cm TAPSE: 1.3 cm Doppler Measurements & Calculations Ao V2 max: 128.6 cm/sec LVOT Max Glenn: 73.4 cm/sec Ao V2 mean: 102.1 cm/sec LV V1 max P.2 mmHg Ao max P.7 mmHg LV V1 VTI: 14.7 cm Ao mean P.5 mmHg CAT(I,D): 1.8 cm2 Ao V2 VTI: 26.7 cm CAT(V,D): 1.9 cm2 sev ratio: 0.55 CAT indexed to BSA (cm^2/m^2): 0.79 MV E max glenn: 70.2 cm/sec TR max glenn: 272.7 cm/sec MV A max glenn: 1.2 cm/sec TR max P.8 mmHg MV E/A: 60.7 PA V2 max: 95.7 cm/sec Med Peak E' Glenn: 7.8 cm/sec PA V2 mean: 68.3 cm/sec E/E' med: 9.0 PA mean P.1 mmHg Lat Peak E' Glenn: 10.0 cm/sec PA pr(Accel): 29.3 mmHg E/E' lat: 7.0 E/e' average: 8.0 MV dec time: 0.19 sec SV(LVOT): 47.6 ml Reading Physician:05:02 PM
== END ==
PROVIDERS: Family Provider Internal Medicine; PCP Internal Medicine; Referring Provider Internal Medicine; Visit Provider Internal Medicine
DX: R07.9 Chest pain, unspecified (principal)
CPT/HCPCS: 78452; 93016; 93017; 93018; 93306; A9502; J2785; Q9957

== ENCOUNTER → 2020-02-05 14:01 | Outpatient (CLI) | payer MEDICARE, SELFPAY | PROVIDERS: Family Provider Internal Medicine; PCP Internal Medicine; Referring Provider Internal Medicine; Visit Provider Internal Medicine | DX: M85.851 Other specified disorders of bone density and structure, right thigh (principal); Z78.0 Asymptomatic menopausal state; Z90.722 Acquired absence of ovaries, bilateral; Z87.891 Personal history of nicotine dependence | CPT/HCPCS: 77080 ==

== ENCOUNTER → 2020-02-14 15:15 | Outpatient (CLI) | payer MEDICARE, SELFPAY ==
--- NOTE | 2020-02-14 15:19 | DI.CT.S_ITS ---
PROCEDURE: CT CHEST WO CON INDICATIONS: PULMONARY FIBROSIS TECHNIQUE: Noncontrast 5 mm thick sections acquired from the pulmonary apices to the posterior costophrenic angles. 1 mm lung window, 5 mm thick coronal and sagittal and 7 mm axial MIP reformats were then acquired. For radiation dose reduction, the following was used: automated exposure control, adjustment of mA and/or kV according to patient size. COMPARISON: None. FINDINGS: Image quality: Excellent. Scattered subsegmental atelectasis and/or scarring. No focal consolidation. 3 mm nodule seen in the right fissure. Additional 2 mm nodule present in the lingula. No pleural effusions or pneumothorax. Airway thickening in keeping with nonspecific bronchitis and/or reactive airways disease. No honeycombing is evident. There is no definite tree-in-bud opacity. Mild bilateral subpleural reticular opacities are seen which are nonspecific. Mediastinum: Heart size is normal. Coronary artery calcifications are present. No pericardial effusion. No mediastinal adenopathy by size criteria. Thoracic aorta and central pulmonary arteries are normal in size. Scattered vascular calcifications seen in the aorta. Small hiatal hernia. Bones and chest wall: No suspicious bony lesions. No vertebral body compression fractures. No axillary or supraclavicular adenopathy by size criteria. Thyroid gland negative . Chronic right rib fractures. Diffuse spondylitic changes and facet arthropathy. Abdomen: Visualized upper abdominal solid organs and bowel loops appear normal in the absence of contrast. IMPRESSION: Mild bilateral subpleural ill-defined reticular opacities and scarring, technically nonspecific appearance. No definite honeycombing is seen at this time. Sub 4 mm pulmonary nodules as detailed above which are nonspecific in the absence of relevant comparison studies. These could be followed up with noncontrast chest CT in 1 year to exclude early metastatic or malignant possibilities. Airway thickening in keeping with nonspecific bronchitis and/or reactive airways disease. Coronary artery disease. Small hiatal hernia. Dictated by: Chilo Haas M.D. on 02/14/2020 at 16:30 Approved by: Chilo Haas M.D. on 02/14/2020 at 16:40
== END ==
PROVIDERS: Family Provider Internal Medicine; PCP Internal Medicine; Referring Provider Internal Medicine Critical Care Medicine; Visit Provider Internal Medicine Critical Care Medicine
DX: J84.10 Pulmonary fibrosis, unspecified (principal); R92.8 Other abnormal and inconclusive findings on diagnostic imaging of breast; I25.10 Atherosclerotic heart disease of native coronary artery without angina pectoris; K44.9 Diaphragmatic hernia without obstruction or gangrene
CPT/HCPCS: 71250

== ENCOUNTER 2020-02-19 09:45 | Outpatient (RCR) | payer MEDICARE, SELFPAY ==
--- NOTE | 2019-11-13 13:19 | PT.OIE ---
Current Diagnoses Cervicalgia (11/13/19) Abnormal posture (11/13/19) Past Medical History (Last Reviewed 05/21/19 @ 03:01 by Tony Wakefield DO) Chronic pain (Chronic) Dementia (Acute) Depression (Chronic) GERD (gastroesophageal reflux disease) (Chronic) Herpes encephalitis (Resolved) History of lumbar puncture (Acute 08/29/18) Hyperlipidemia (Chronic) Hypertension (Chronic) Hypoxia (Acute 10/10/18) Impaired fasting glucose (Chronic) Pulmonary fibrosis (Chronic) Stroke (Suspected) Past Surgical History (Last Reviewed 03/13/19 @ 11:35 by Madelyn Dias MD) History of ankle surgery (Acute 10/11/18) Visit Care Team Role Provider Type Carissa Chen MD Attending Provider Physician Family Provider Primary Care Provider Referring Provider Specialty: Internal Medicine Address: [address] [place] [address], [facility] Email: [email or web address] Initial Evaluation PT-OP-A Visit Information Start: 11/13/19 08:51 Freq: Status: Active Protocol: Document 11/13/19 12:17 AW (Rec: 11/13/19 13:05 AW [email or web address]) Out-Patient Physical Therapy Visit Information Visit Information Visit Type Initial Evaluation Visit Start Time 09:45 Visit Stop Time 10:30 Total Visit Minutes 45 Visit Number 1 PT-OP-B Current Condition Start: 11/13/19 08:51 Freq: Status: Active Protocol: Document 11/13/19 12:17 AW (Rec: 11/13/19 13:05 AW [email or web address]) Current Condition History of Current Condition Onset Date 1 year Current Complaints neck pain History of Current Condition Tali has a history of a fib diagnosed in the last few years and a fall resulting in ankle fracture one year ago. Prior to her fall, she was ambulatory with 4WW. She was NWB RLE after the fracture and never fully recovered her mobility. She now uses a manual wheelchair for most mobility. She lives at [facility] and receives med assist as well as standby assist with showers. Tali states she typically uses her legs to propel the wheelchair with the foot rests removed. She is also capable of self- propelling with her arms which she does ~25% of the time. Since transitioning to full- time wheelchair mobility, she has noticed increased neck pain which becomes so bad it makes her nauseous. She states her neck pain begins at the back of her head and can quickly become achy and sharp. Her pain tends to become worse as the day progresses unless she catches it early and gives herself a head massage. She states it usually helps to gently move her head side to side and up and down. Pt denies any head trauma, recent infection, bilateral upper extremity symptoms, or drop attacks. She reports left hip pain as well but agrees to focus this plan of care on her neck pain. 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 PT-OP-C Subjective Start: 11/13/19 08:51 Freq: Status: Active Protocol: Document 11/13/19 12:17 AW (Rec: 11/13/19 13:05 AW [email or web address]) Patient Questionnaires Neck Disability Index NDI Score 37/50 Neck Disability Index Impairment 60 to 79% Impaired (Score 30- 39) PT-OP-F Manual Assessment Start: 11/13/19 08:51 Freq: Status: Active Protocol: Document 11/13/19 12:17 AW (Rec: 11/13/19 13:05 AW [email or web address]) Manual Assessments Soft Tissue Assessment Soft Tissue Mobility Assessment Dense upper trapezius, bilateral cervical paraspinals , bilateral occipitals Joint Mobility Assessment Joint Mobility Assessment Good lateral movement C1-C7. Restricted PROM bilateral shoulders in flexion and abduction. PT-OP-H Neuro Start: 11/13/19 08:51 Freq: Status: Active Protocol: Document 11/13/19 12:17 AW (Rec: 11/13/19 13:05 AW [email or web address]) Sensation Evaluation Gross Sensation Gross Sensation WNL PT-OP-J Posture/Palpation/Skin Start: 11/13/19 08:51 Freq: Status: Active Protocol: Document 11/13/19 12:17 AW (Rec: 11/13/19 13:05 AW [email or web address]) Posture Evaluation Position Sitting Evaluation View Lateral Head/C-Spine Posture Extended,Forward Head T-Spine Posture Increased Kyphosis Shoulder Posture (L) Rounded,(R) Rounded,(L) Forward,(R) Forward Scapula Posture (L) Protracted,(R) Protracted Weight Distribution Balanced PT-OP-K Range of Motion Start: 11/13/19 08:51 Freq: Status: Active Protocol: Document 11/13/19 12:17 AW (Rec: 11/13/19 13:05 AW [email or web address]) Cervical Spine Range of Motion Cervical Spine Active Degrees Testing Position Sitting Flexion 60 Extension 20 Rotation Left 35 Rotation Right 45 Lateral Flexion Left 20 Lateral Flexion Right 20 ROM Limitations Soft Tissue Tightness Comments Reduced left rotation Shoulder Goniometric Range of Motion Shoulder Left Active Testing Position Sitting Flexion 130 Abduction 140 Shoulder ROM Limitations Shoulder ROM Limitations Soft Tissue Tightness Comments R AROM consistent with left. PROM also restricted bilaterally Elbow/Forearm Range of Motion Elbow/Forearm ROM Limitations Comments Bilat elbow ROM WNL PT-OP-L Special Tests Start: 11/13/19 08:51 Freq: Status: Active Protocol: Document 11/13/19 12:17 AW (Rec: 11/13/19 13:05 AW [email or web address]) Special Tests Cervical Spine Special Tests Alar Ligament Test Results intact Spurling's Test Test Results negative bilaterally Comments with cervical retraction PT-OP-M Strength Start: 11/13/19 08:51 Freq: Status: Active Protocol: Document 11/13/19 12:17 AW (Rec: 11/13/19 13:05 AW [email or web address]) Cervical Spine Strength Cervical Spine Manual Muscle Testing Testing Position Sitting Flexion (C1-2) 4+ Good+ Extension 4+ Good+ Rotation Left 4+ Good+ Rotation Right 4+ Good+ Lateral Flexion Left (C3) 4 Good Lateral Flexion Right (C3) 4 Good Scapula Strength Scapula Manual Muscle Testing Left Elevation (C4) 4+ Good+ Adduction 4- Good- Abduction 4 Good Depression 4 Good Comments Right consistent with left Shoulder Strength Shoulder Manual Muscle Testing Left Flexion 4 Good Extension 4 Good Abduction (C5) 4 Good External Rotation 4 Good Internal Rotation 4+ Good+ Comments Right consistent with left PT-OP-Q Treatments Start: 11/13/19 08:51 Freq: Status: Active Protocol: Document 11/13/19 12:17 AW (Rec: 11/13/19 13:05 AW [email or web address]) Therapeutic Exercises Sitting Exercises scapular retraction Sitting Exercise Name scapular retraction Side bilateral Reps/Minutes 5 reps x 2 with 5 sec hold Comments tactile facilitation and cues cervical retraction Sitting Exercise Name cervical retraction Reps/Minutes 10 reps Comments cued for chin tuck vs cervical flexion upper traps stretch Sitting Exercise Name upper traps stretch Side bilateral Resistance manual/self Reps/Minutes 30 sec x 4 Manual Therapy Treatment Soft Tissue Mobilization STM bilateral upper traps Body Location upper traps Mobilization Type Myofascial Release,Sustained Pressure,Trigger Point Release Intensity/Depth Moderate Body Position Sitting PT-OP-T Assessment and Plan Start: 11/13/19 08:51 Freq: Status: Active Protocol: Document 11/13/19 12:17 AW (Rec: 11/13/19 13:18 AW [email or web address]) Physical Therapy Assessment Rehab Potential Rehabilitation Potential Good Evaluation Complexity Number of Personal Factors/Comorbidities 1-2 Number of Body Systems Impaired 1-2 Clinical Presentation at Evaluation Stable Impairments Impairments Functional Activities, Functional Mobility,Pain, Posture,ROM,Sensation,Soft Tissue Mobility,Strength Other Concerns Fall Risk high Goals Four Impairment sleep Short Term Goal (STG) Pt will improve sleep hygiene and positioning to report increase in undisturbed sleep. STG Duration 12/18/2019 Stencil Inspector Goal (LTG) Pt will sleep 7 undisturbed hours for 3/7 nights. LTG Duration 01/22/2020 Three Impairment Pt scores 37/50 on NDI Mcfp Goal (LTG) Pt will score 27/50 or less on NDI to indicate improved daily function LTG Duration 01/22/2020 Two Impairment shoulder ROM Stencil Inspector Goal (LTG) Pt will improve bilateral shoulder active flexion to 135 degrees for improved ability to perform ADL's LTG Duration 01/22/2020 One Impairment Pt has no exercise program Short Term Goal (STG) Pt will be independent with HEP for support of therapy services provided in clinic STG Duration 12/18/2019 Mcfp Goal (LTG) Pt will be independent with maintenance HEP LTG Duration 01/22/20 Assessment Summary Assessment Tali is an 84 yo woman who presents to outpatient PT with history of a fib and recurrent encephalitis. Her current complaint is neck pain which has worsened over the last year as she has become more wheelchair-dependent for mobility. Perpetuating factors include habitual posture and full-time wheelchair use which have reduced her overall shoulder range of motion and contributed to ongoing neck pain. She will benefit from skilled PT to address soft tissue mobility, upper extremity and neck ROM, and upper extremity/neck strength. Physical Therapy Plan Frequency and Duration Frequency of Treatment 2x/Week Duration of Treatment 10 weeks Plan of Care Start Date 11/13/19 Plan of Care End Date 01/22/20 Therapeutic Interventions Therapeutic Interventions Home Exercise Program,Joint Mobilizations,Manual Therapy, Neuromuscular Re-education, Patient/Caregiver Education, Self-Care/Home Management,Soft Tissue Mobilization, Therapeutic Activities, Therapeutic Exercises Other Therapeutic Interventions sleep positioning Next Visit Focus/Plan Next Note Type Treatment Note Next Visit Plan assess response to initial HEP ; STM as tolerated in sitting or hooklying for upper traps, cervical paraspinals, occipitals; progress scap retraction and postural awareness as tolerated
--- NOTE | 2019-11-13 13:19 | PT.OPPOC ---
Physical, Occupational & Speech Therapy At [facility] Current Diagnoses Cervicalgia (11/13/19) Abnormal posture (11/13/19) Visit Care Team Role Provider Type Carissa Chen MD Attending Provider Physician Family Provider Primary Care Provider Referring Provider Specialty: Internal Medicine Address: [address] [place] [address], [facility] Email: [email or web address] human resource [employer] Plan Of Care PT-OP-T Assessment and Plan Start: 11/13/19 08:51 Freq: Status: Active Protocol: Document 11/13/19 12:17 AW (Rec: 11/13/19 13:18 AW [email or web address]) Physical Therapy Assessment Rehab Potential Rehabilitation Potential Good Evaluation Complexity Number of Personal Factors/Comorbidities 1-2 Number of Body Systems Impaired 1-2 Clinical Presentation at Evaluation Stable Impairments Impairments Functional Activities, Functional Mobility,Pain, Posture,ROM,Sensation,Soft Tissue Mobility,Strength Other Concerns Fall Risk high Goals Four Impairment sleep Short Term Goal (STG) Pt will improve sleep hygiene and positioning to report increase in undisturbed sleep. STG Duration 12/18/2019 Fpc Goal (LTG) Pt will sleep 7 undisturbed hours for 3/7 nights. LTG Duration 01/22/2020 Three Impairment Pt scores 37/50 on NDI Nutrition Tech Goal (LTG) Pt will score 27/50 or less on NDI to indicate improved daily function LTG Duration 01/22/2020 Two Impairment shoulder ROM Fpc Goal (LTG) Pt will improve bilateral shoulder active flexion to 135 degrees for improved ability to perform ADL's LTG Duration 01/22/2020 One Impairment Pt has no exercise program Short Term Goal (STG) Pt will be independent with HEP for support of therapy services provided in clinic STG Duration 12/18/2019 Fpc Goal (LTG) Pt will be independent with maintenance HEP LTG Duration 01/22/20 Assessment Summary Assessment Tali is an 84 yo woman who presents to outpatient PT with history of a fib and recurrent encephalitis. Her current complaint is neck pain which has worsened over the last year as she has become more wheelchair-dependent for mobility. Perpetuating factors include habitual posture and full-time wheelchair use which have reduced her overall shoulder range of motion and contributed to ongoing neck pain. She will benefit from skilled PT to address soft tissue mobility, upper extremity and neck ROM, and upper extremity/neck strength. Physical Therapy Plan Frequency and Duration Frequency of Treatment 2x/Week Duration of Treatment 10 weeks Plan of Care Start Date 11/13/19 Plan of Care End Date 01/22/20 Therapeutic Interventions Therapeutic Interventions Home Exercise Program,Joint Mobilizations,Manual Therapy, Neuromuscular Re-education, Patient/Caregiver Education, Self-Care/Home Management,Soft Tissue Mobilization, Therapeutic Activities, Therapeutic Exercises Other Therapeutic Interventions sleep positioning Next Visit Focus/Plan Next Note Type Treatment Note Next Visit Plan assess response to initial HEP ; STM as tolerated in sitting or hooklying for upper traps, cervical paraspinals, occipitals; progress scap retraction and postural awareness as tolerated Plan of Care Dates Plan of Care Start Date 11/13/19 Plan of Care End Date 01/22/20 Electronically Signed by: Alva Shannon, PT 11/13/19 [id number] Please Sign and Return: I have reviewed this Plan of Care and certify that the skilled therapy services above are required to meet the patient?s needs. Physician Signature Date Printed Name and Credentials Clinical Instructor Signature Printed Name and Credentials
--- NOTE | 2019-11-15 11:22 | PT.OTN ---
Current Diagnoses Cervicalgia (11/15/19) Abnormal posture (11/15/19) Physical Therapy Treatment Note PT-OP-A Visit Information Start: 11/13/19 08:51 Freq: Status: Active Protocol: Document 11/15/19 10:34 SP (Rec: 11/15/19 11:38 SP [id number]) Out-Patient Physical Therapy Visit Information Visit Information Visit Type Treatment Note Visit Start Time 10:34 Visit Stop Time 11:22 Total Visit Minutes 48 Visit Number 2 Number of NUCLEAR MEDICINE TECH Visits 1 PT-OP-B Current Condition Start: 11/13/19 08:51 Freq: Status: Active Protocol: Document 11/13/19 12:17 AW (Rec: 11/13/19 13:05 AW [email or web address]) Current Condition History of Current Condition Onset Date 1 year Current Complaints neck pain History of Current Condition Tali has a history of a fib diagnosed in the last few years and a fall resulting in ankle fracture one year ago. Prior to her fall, she was ambulatory with 4WW. She was NWB RLE after the fracture and never fully recovered her mobility. She now uses a manual wheelchair for most mobility. She lives at [facility] and receives med assist as well as standby assist with showers. Tali states she typically uses her legs to propel the wheelchair with the foot rests removed. She is also capable of self- propelling with her arms which she does ~25% of the time. Since transitioning to full- time wheelchair mobility, she has noticed increased neck pain which becomes so bad it makes her nauseous. She states her neck pain begins at the back of her head and can quickly become achy and sharp. Her pain tends to become worse as the day progresses unless she catches it early and gives herself a head massage. She states it usually helps to gently move her head side to side and up and down. Pt denies any head trauma, recent infection, bilateral upper extremity symptoms, or drop attacks. She reports left hip pain as well but agrees to focus this plan of care on her neck pain. 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 PT-OP-F Manual Assessment Start: 11/13/19 08:51 Freq: Status: Active Protocol: Document 11/13/19 12:17 AW (Rec: 11/13/19 13:05 AW [email or web address]) Manual Assessments Soft Tissue Assessment Soft Tissue Mobility Assessment Dense upper trapezius, bilateral cervical paraspinals , bilateral occipitals Joint Mobility Assessment Joint Mobility Assessment Good lateral movement C1-C7. Restricted PROM bilateral shoulders in flexion and abduction. PT-OP-H Neuro Start: 11/13/19 08:51 Freq: Status: Active Protocol: Document 11/13/19 12:17 AW (Rec: 11/13/19 13:05 AW [email or web address]) Sensation Evaluation Gross Sensation Gross Sensation WNL PT-OP-J Posture/Palpation/Skin Start: 11/13/19 08:51 Freq: Status: Active Protocol: Document 11/13/19 12:17 AW (Rec: 11/13/19 13:05 AW [email or web address]) Posture Evaluation Position Sitting Evaluation View Lateral Head/C-Spine Posture Extended,Forward Head T-Spine Posture Increased Kyphosis Shoulder Posture (L) Rounded,(R) Rounded,(L) Forward,(R) Forward Scapula Posture (L) Protracted,(R) Protracted Weight Distribution Balanced PT-OP-K Range of Motion Start: 11/13/19 08:51 Freq: Status: Active Protocol: Document 11/13/19 12:17 AW (Rec: 11/13/19 13:05 AW [email or web address]) Cervical Spine Range of Motion Cervical Spine Active Degrees Testing Position Sitting Flexion 60 Extension 20 Rotation Left 35 Rotation Right 45 Lateral Flexion Left 20 Lateral Flexion Right 20 ROM Limitations Soft Tissue Tightness Comments Reduced left rotation Shoulder Goniometric Range of Motion Shoulder Left Active Testing Position Sitting Flexion 130 Abduction 140 Shoulder ROM Limitations Shoulder ROM Limitations Soft Tissue Tightness Comments R AROM consistent with left. PROM also restricted bilaterally Elbow/Forearm Range of Motion Elbow/Forearm ROM Limitations Comments Bilat elbow ROM WNL PT-OP-L Special Tests Start: 11/13/19 08:51 Freq: Status: Active Protocol: Document 11/13/19 12:17 AW (Rec: 11/13/19 13:05 AW [email or web address]) Special Tests Cervical Spine Special Tests Alar Ligament Test Results intact Spurling's Test Test Results negative bilaterally Comments with cervical retraction PT-OP-M Strength Start: 11/13/19 08:51 Freq: Status: Active Protocol: Document 11/13/19 12:17 AW (Rec: 11/13/19 13:05 AW [email or web address]) Cervical Spine Strength Cervical Spine Manual Muscle Testing Testing Position Sitting Flexion (C1-2) 4+ Good+ Extension 4+ Good+ Rotation Left 4+ Good+ Rotation Right 4+ Good+ Lateral Flexion Left (C3) 4 Good Lateral Flexion Right (C3) 4 Good Scapula Strength Scapula Manual Muscle Testing Left Elevation (C4) 4+ Good+ Adduction 4- Good- Abduction 4 Good Depression 4 Good Comments Right consistent with left Shoulder Strength Shoulder Manual Muscle Testing Left Flexion 4 Good Extension 4 Good Abduction (C5) 4 Good External Rotation 4 Good Internal Rotation 4+ Good+ Comments Right consistent with left PT-OP-Q Treatments Start: 11/13/19 08:51 Freq: Status: Active Protocol: Document 11/15/19 10:34 SP (Rec: 11/15/19 11:38 SP [id number]) Therapeutic Exercises Supine Exercises cs lengthening w/ chin tuck Reps/Minutes 5 sec x5 Comments pillows under ischial tuberosity and knees for PPT and 2 pillows under head Sidelying Exercises open book Sidelying Exercise Name hand on head Side bilateral Resistance AROM Reps/Minutes x5 R and L Comments support for lower body stationary, cued head with arm movement naman range Sitting Exercises scapular retraction Sitting Exercise Name scapular retraction Side bilateral Reps/Minutes 5 reps x 2 with 5 sec hold Comments tactile facilitation and cues: chest trunk upright lift, scap mm retract cervical retraction Sitting Exercise Name cervical retraction w/chin nod Reps/Minutes 10 reps Comments cued for cs ext w/head nod vs cervical flexion upper traps stretch Sitting Exercise Name upper traps stretch Side bilateral Resistance manual/self Reps/Minutes 30 sec x 4 Therapeutic Activity Therapeutic Activity SPT, supine<>sitting Name performed Comments SPT w/c 45 deg angle with self performance using BUE, cued hip hinge wt shift over toes, supine<>sitting log roll. supine, sidelying positioning w/ pillows Comments cued pillow support under ischial tuberosity and behind knees supine, between knees and behind pelvis on side this is very comfortable and could fall asleep PT-OP-T Assessment and Plan Start: 11/13/19 08:51 Freq: Status: Active Protocol: Document 11/15/19 10:34 SP (Rec: 11/15/19 11:38 SP [id number]) Physical Therapy Assessment Goals Four Impairment sleep Short Term Goal (STG) Pt will improve sleep hygiene and positioning to report increase in undisturbed sleep. STG Duration 12/18/2019 Long-Term Goal (LTG) Pt will sleep 7 undisturbed hours for 3/7 nights. LTG Duration 01/22/2020 Three Impairment Pt scores 37/50 on NDI Long-Term Goal (LTG) Pt will score 27/50 or less on NDI to indicate improved daily function LTG Duration 01/22/2020 Two Impairment shoulder ROM Shipfitters Supervisor Goal (LTG) Pt will improve bilateral shoulder active flexion to 135 degrees for improved ability to perform ADL's LTG Duration 01/22/2020 One Impairment Pt has no exercise program Short Term Goal (STG) Pt will be independent with HEP for support of therapy services provided in clinic STG Duration 12/18/2019 Long-Term Goal (LTG) Pt will be independent with maintenance HEP LTG Duration 01/22/20 Assessment Summary Assessment Pt able to self propel inw/c BLe, BUE with cuing for using BLE for decreased stress on upper body and neck. Tx focused on comfort sleep positioning and HEP review CS . Cued slow muscle activation and proper form with improved positioning demonstration and good feedback results this feels better. Applied in supine for reinforcement in supported position but suggested perform sitting away from back of chair with verbal confirmation. Physical Therapy Plan Frequency and Duration Frequency of Treatment 2x/Week Duration of Treatment 10 weeks Plan of Care Start Date 11/13/19 Plan of Care End Date 01/22/20 Therapeutic Interventions Therapeutic Interventions Home Exercise Program,Joint Mobilizations,Manual Therapy, Neuromuscular Re-education, Patient/Caregiver Education, Self-Care/Home Management,Soft Tissue Mobilization, Therapeutic Activities, Therapeutic Exercises Other Therapeutic Interventions sleep positioning Next Visit Focus/Plan Next Note Type Treatment Note Next Visit Plan assess response to HEP review and TS rotation added last tx; STM as tolerated in sitting or hooklying for upper traps, cervical paraspinals, occipitals; progress scap retraction and postural awareness as tolerated. Next tx add sit to stand for stability during transfers and decreased upper body WB and pressure on CS.
--- NOTE | 2019-11-20 14:06 | PT.OTN ---
Current Diagnoses Cervicalgia (11/20/19) Abnormal posture (11/20/19) Physical Therapy Treatment Note PT-OP-A Visit Information Start: 11/13/19 08:51 Freq: Status: Active Protocol: Document 11/20/19 13:51 AW (Rec: 11/20/19 14:05 AW [email or web address]) Out-Patient Physical Therapy Visit Information Visit Information Visit Type Treatment Note Visit Start Time 13:02 Visit Stop Time 13:48 Total Visit Minutes 46 Visit Number 3 Number of STRANDING MACHINE OPERATOR HELPER Visits 0 PT-OP-B Current Condition Start: 11/13/19 08:51 Freq: Status: Active Protocol: Document 11/13/19 12:17 AW (Rec: 11/13/19 13:05 AW [email or web address]) Current Condition History of Current Condition Onset Date 1 year Current Complaints neck pain History of Current Condition Tali has a history of a fib diagnosed in the last few years and a fall resulting in ankle fracture one year ago. Prior to her fall, she was ambulatory with 4WW. She was NWB RLE after the fracture and never fully recovered her mobility. She now uses a manual wheelchair for most mobility. She lives at [facility] and receives med assist as well as standby assist with showers. Tali states she typically uses her legs to propel the wheelchair with the foot rests removed. She is also capable of self- propelling with her arms which she does ~25% of the time. Since transitioning to full- time wheelchair mobility, she has noticed increased neck pain which becomes so bad it makes her nauseous. She states her neck pain begins at the back of her head and can quickly become achy and sharp. Her pain tends to become worse as the day progresses unless she catches it early and gives herself a head massage. She states it usually helps to gently move her head side to side and up and down. Pt denies any head trauma, recent infection, bilateral upper extremity symptoms, or drop attacks. She reports left hip pain as well but agrees to focus this plan of care on her neck pain. 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 PT-OP-F Manual Assessment Start: 11/13/19 08:51 Freq: Status: Active Protocol: Document 11/13/19 12:17 AW (Rec: 11/13/19 13:05 AW [email or web address]) Manual Assessments Soft Tissue Assessment Soft Tissue Mobility Assessment Dense upper trapezius, bilateral cervical paraspinals , bilateral occipitals Joint Mobility Assessment Joint Mobility Assessment Good lateral movement C1-C7. Restricted PROM bilateral shoulders in flexion and abduction. PT-OP-H Neuro Start: 11/13/19 08:51 Freq: Status: Active Protocol: Document 11/13/19 12:17 AW (Rec: 11/13/19 13:05 AW [email or web address]) Sensation Evaluation Gross Sensation Gross Sensation WNL PT-OP-J Posture/Palpation/Skin Start: 11/13/19 08:51 Freq: Status: Active Protocol: Document 11/13/19 12:17 AW (Rec: 11/13/19 13:05 AW [email or web address]) Posture Evaluation Position Sitting Evaluation View Lateral Head/C-Spine Posture Extended,Forward Head T-Spine Posture Increased Kyphosis Shoulder Posture (L) Rounded,(R) Rounded,(L) Forward,(R) Forward Scapula Posture (L) Protracted,(R) Protracted Weight Distribution Balanced PT-OP-K Range of Motion Start: 11/13/19 08:51 Freq: Status: Active Protocol: Document 11/13/19 12:17 AW (Rec: 11/13/19 13:05 AW [email or web address]) Cervical Spine Range of Motion Cervical Spine Active Degrees Testing Position Sitting Flexion 60 Extension 20 Rotation Left 35 Rotation Right 45 Lateral Flexion Left 20 Lateral Flexion Right 20 ROM Limitations Soft Tissue Tightness Comments Reduced left rotation Shoulder Goniometric Range of Motion Shoulder Left Active Testing Position Sitting Flexion 130 Abduction 140 Shoulder ROM Limitations Shoulder ROM Limitations Soft Tissue Tightness Comments R AROM consistent with left. PROM also restricted bilaterally Elbow/Forearm Range of Motion Elbow/Forearm ROM Limitations Comments Bilat elbow ROM WNL PT-OP-L Special Tests Start: 11/13/19 08:51 Freq: Status: Active Protocol: Document 11/13/19 12:17 AW (Rec: 11/13/19 13:05 AW [email or web address]) Special Tests Cervical Spine Special Tests Alar Ligament Test Results intact Spurling's Test Test Results negative bilaterally Comments with cervical retraction PT-OP-M Strength Start: 11/13/19 08:51 Freq: Status: Active Protocol: Document 11/13/19 12:17 AW (Rec: 11/13/19 13:05 AW [email or web address]) Cervical Spine Strength Cervical Spine Manual Muscle Testing Testing Position Sitting Flexion (C1-2) 4+ Good+ Extension 4+ Good+ Rotation Left 4+ Good+ Rotation Right 4+ Good+ Lateral Flexion Left (C3) 4 Good Lateral Flexion Right (C3) 4 Good Scapula Strength Scapula Manual Muscle Testing Left Elevation (C4) 4+ Good+ Adduction 4- Good- Abduction 4 Good Depression 4 Good Comments Right consistent with left Shoulder Strength Shoulder Manual Muscle Testing Left Flexion 4 Good Extension 4 Good Abduction (C5) 4 Good External Rotation 4 Good Internal Rotation 4+ Good+ Comments Right consistent with left PT-OP-Q Treatments Start: 11/13/19 08:51 Freq: Status: Active Protocol: Document 11/20/19 13:51 AW (Rec: 11/20/19 14:05 AW [email or web address]) Therapeutic Exercises Supine Exercises deep neck flexor training Supine Exercise Name deep neck flexor training Reps/Minutes 5-8 sec hold x 8 Comments chin tuck + liftoff from pillow Sitting Exercises thoracic rotation Side bilateral Reps/Minutes 5 each side Comments encouraged max rotation with arm reaching across isometric neck all planes Sitting Exercise Name flexion, extension, SB, rotation Side bilateral Resistance manual Reps/Minutes 5 sec hold x 3 each direction scapular retraction Sitting Exercise Name scapular retraction Side bilateral Reps/Minutes 5 reps x 2 with 5 sec hold Comments tactile facilitation and cues: chest trunk lift Standing Exercises sit to stand Standing Exercise Name sit to stand Equipment Used w/c Reps/Minutes 6 Comments with use of BUE for push off and eccentric control Manual Therapy Treatment Soft Tissue Mobilization cervical paraspinals and suboccipitals Body Location cervical paraspinals and suboccipitals Mobilization Type Strumming,Trigger Point Release Intensity/Depth Superficial Body Position Hooklying Comments with active rotation and contract/relax for rotation ( more limited to the left) STM bilateral upper traps Body Location upper traps Mobilization Type Myofascial Release,Sustained Pressure,Trigger Point Release Intensity/Depth Moderate Body Position Sitting PT-OP-T Assessment and Plan Start: 11/13/19 08:51 Freq: Status: Active Protocol: Document 11/20/19 13:51 AW (Rec: 11/20/19 14:05 AW [email or web address]) Physical Therapy Assessment Impairments Impairments Functional Activities, Functional Mobility,Pain, Posture,ROM,Sensation,Soft Tissue Mobility,Strength Other Concerns Fall Risk high Goals Four Impairment sleep Short Term Goal (STG) Pt will improve sleep hygiene and positioning to report increase in undisturbed sleep. STG Duration 12/18/2019 Long-Term Goal (LTG) Pt will sleep 7 undisturbed hours for 3/7 nights. LTG Duration 01/22/2020 Three Impairment Pt scores 37/50 on NDI Long-Term Goal (LTG) Pt will score 27/50 or less on NDI to indicate improved daily function LTG Duration 01/22/2020 Two Impairment shoulder ROM [employer] Sewer Goal (LTG) Pt will improve bilateral shoulder active flexion to 135 degrees for improved ability to perform ADL's LTG Duration 01/22/2020 One Impairment Pt has no exercise program Short Term Goal (STG) Pt will be independent with HEP for support of therapy services provided in clinic STG Duration 12/18/2019 Long-Term Goal (LTG) Pt will be independent with maintenance HEP LTG Duration 01/22/20 Assessment Summary Assessment Treatment focused on STM for cervical paraspinals, upper traps, suboccipitals. Left rotation is more limited than right, improved with contract/ relax and STM. Pt tolerated isometric neck strengthening all planes and agreed with plan to work on sit to stand for improved safety in transfers. Physical Therapy Plan Frequency and Duration Frequency of Treatment 2x/Week Duration of Treatment 10 weeks Plan of Care Start Date 11/13/19 Plan of Care End Date 01/22/20 Therapeutic Interventions Therapeutic Interventions Home Exercise Program,Joint Mobilizations,Manual Therapy, Neuromuscular Re-education, Patient/Caregiver Education, Self-Care/Home Management,Soft Tissue Mobilization, Therapeutic Activities, Therapeutic Exercises Other Therapeutic Interventions sleep positioning Next Visit Focus/Plan Next Note Type Treatment Note Next Visit Plan assess response to last tx; STM as tolerated in sitting or hooklying for upper traps, cervical paraspinals, suboccipitals; progress scap retraction and postural awareness as tolerated. Progress sit to stand for stability during transfers and decreased upper body WB and pressure on CS.
--- NOTE | 2019-11-22 13:45 | PT.OTN ---
Current Diagnoses Cervicalgia (11/22/19) Abnormal posture (11/22/19) Physical Therapy Treatment Note PT-OP-A Visit Information Start: 11/13/19 08:51 Freq: Status: Active Protocol: Document 11/22/19 13:05 SP (Rec: 11/22/19 16:20 SP [id number]) Out-Patient Physical Therapy Visit Information Visit Information Visit Type Treatment Note Visit Start Time 13:05 Visit Stop Time 13:45 Total Visit Minutes 40 Visit Number 4 Number of OXYGEN THERAPY TECHNICIAN Visits 1 PT-OP-B Current Condition Start: 11/13/19 08:51 Freq: Status: Active Protocol: Document 11/13/19 12:17 AW (Rec: 11/13/19 13:05 AW [email or web address]) Current Condition History of Current Condition Onset Date 1 year Current Complaints neck pain History of Current Condition Tali has a history of a fib diagnosed in the last few years and a fall resulting in ankle fracture one year ago. Prior to her fall, she was ambulatory with 4WW. She was NWB RLE after the fracture and never fully recovered her mobility. She now uses a manual wheelchair for most mobility. She lives at [facility] and receives med assist as well as standby assist with showers. Tali states she typically uses her legs to propel the wheelchair with the foot rests removed. She is also capable of self- propelling with her arms which she does ~25% of the time. Since transitioning to full- time wheelchair mobility, she has noticed increased neck pain which becomes so bad it makes her nauseous. She states her neck pain begins at the back of her head and can quickly become achy and sharp. Her pain tends to become worse as the day progresses unless she catches it early and gives herself a head massage. She states it usually helps to gently move her head side to side and up and down. Pt denies any head trauma, recent infection, bilateral upper extremity symptoms, or drop attacks. She reports left hip pain as well but agrees to focus this plan of care on her neck pain. 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 Today feels alot better. PT-OP-F Manual Assessment Start: 11/13/19 08:51 Freq: Status: Active Protocol: Document 11/13/19 12:17 AW (Rec: 11/13/19 13:05 AW [email or web address]) Manual Assessments Soft Tissue Assessment Soft Tissue Mobility Assessment Dense upper trapezius, bilateral cervical paraspinals , bilateral occipitals Joint Mobility Assessment Joint Mobility Assessment Good lateral movement C1-C7. Restricted PROM bilateral shoulders in flexion and abduction. PT-OP-H Neuro Start: 11/13/19 08:51 Freq: Status: Active Protocol: Document 11/13/19 12:17 AW (Rec: 11/13/19 13:05 AW [email or web address]) Sensation Evaluation Gross Sensation Gross Sensation WNL PT-OP-J Posture/Palpation/Skin Start: 11/13/19 08:51 Freq: Status: Active Protocol: Document 11/13/19 12:17 AW (Rec: 11/13/19 13:05 AW [email or web address]) Posture Evaluation Position Sitting Evaluation View Lateral Head/C-Spine Posture Extended,Forward Head T-Spine Posture Increased Kyphosis Shoulder Posture (L) Rounded,(R) Rounded,(L) Forward,(R) Forward Scapula Posture (L) Protracted,(R) Protracted Weight Distribution Balanced PT-OP-K Range of Motion Start: 11/13/19 08:51 Freq: Status: Active Protocol: Document 11/13/19 12:17 AW (Rec: 11/13/19 13:05 AW [email or web address]) Cervical Spine Range of Motion Cervical Spine Active Degrees Testing Position Sitting Flexion 60 Extension 20 Rotation Left 35 Rotation Right 45 Lateral Flexion Left 20 Lateral Flexion Right 20 ROM Limitations Soft Tissue Tightness Comments Reduced left rotation Shoulder Goniometric Range of Motion Shoulder Left Active Testing Position Sitting Flexion 130 Abduction 140 Shoulder ROM Limitations Shoulder ROM Limitations Soft Tissue Tightness Comments R AROM consistent with left. PROM also restricted bilaterally Elbow/Forearm Range of Motion Elbow/Forearm ROM Limitations Comments Bilat elbow ROM WNL PT-OP-L Special Tests Start: 11/13/19 08:51 Freq: Status: Active Protocol: Document 11/13/19 12:17 AW (Rec: 11/13/19 13:05 AW [email or web address]) Special Tests Cervical Spine Special Tests Alar Ligament Test Results intact Spurling's Test Test Results negative bilaterally Comments with cervical retraction PT-OP-M Strength Start: 11/13/19 08:51 Freq: Status: Active Protocol: Document 11/13/19 12:17 AW (Rec: 11/13/19 13:05 AW [email or web address]) Cervical Spine Strength Cervical Spine Manual Muscle Testing Testing Position Sitting Flexion (C1-2) 4+ Good+ Extension 4+ Good+ Rotation Left 4+ Good+ Rotation Right 4+ Good+ Lateral Flexion Left (C3) 4 Good Lateral Flexion Right (C3) 4 Good Scapula Strength Scapula Manual Muscle Testing Left Elevation (C4) 4+ Good+ Adduction 4- Good- Abduction 4 Good Depression 4 Good Comments Right consistent with left Shoulder Strength Shoulder Manual Muscle Testing Left Flexion 4 Good Extension 4 Good Abduction (C5) 4 Good External Rotation 4 Good Internal Rotation 4+ Good+ Comments Right consistent with left PT-OP-Q Treatments Start: 11/13/19 08:51 Freq: Status: Active Protocol: Document 11/22/19 13:05 SP (Rec: 11/22/19 16:20 SP [id number]) Therapeutic Exercises Supine Exercises deep neck flexor training Supine Exercise Name deep neck flexor training Reps/Minutes 5-8 sec hold x 8 Comments chin tuck + liftoff from pillow Sitting Exercises thoracic rotation Side bilateral Reps/Minutes 5 each side Comments encouraged max rotation with arm reaching across isometric neck all planes Sitting Exercise Name flexion, extension, SB, rotation Side bilateral Resistance manual Reps/Minutes 5 sec hold x 3 each direction scapular retraction Sitting Exercise Name scapular retraction Side bilateral Reps/Minutes 5 reps x 2 with 5 sec hold Comments tactile facilitation and cues: chest trunk lift cervical retraction Sitting Exercise Name cervical retraction w/chin nod Reps/Minutes 10 reps Comments cued for cs ext w/head nod vs cervical flexion Therapeutic Activity Therapeutic Activity SPT, supine<>sitting Name performed Comments SPT w/c 45 deg angle with self performance cued hip hinge to decrease UE WB, cued hip hinge wt shift over toes, supine<>sitting log roll. Manual Therapy Treatment Soft Tissue Mobilization cervical paraspinals and suboccipitals Body Location cervical paraspinals and suboccipitals Mobilization Type Strumming,Trigger Point Release Intensity/Depth Superficial Body Position Hooklying Comments with active rotation and contract/relax for rotation ( more limited to the left) STM bilateral upper traps Body Location upper traps Mobilization Type Myofascial Release,Sustained Pressure,Trigger Point Release Intensity/Depth Moderate Body Position Hooklying PT-OP-T Assessment and Plan Start: 11/13/19 08:51 Freq: Status: Active Protocol: Document 11/22/19 13:05 SP (Rec: 11/22/19 16:20 SP [id number]) Physical Therapy Assessment Goals Four Impairment sleep Short Term Goal (STG) Pt will improve sleep hygiene and positioning to report increase in undisturbed sleep. STG Duration 12/18/2019 Retirement Goal (LTG) Pt will sleep 7 undisturbed hours for 3/7 nights. LTG Duration 01/22/2020 Three Impairment Pt scores 37/50 on NDI Retirement Goal (LTG) Pt will score 27/50 or less on NDI to indicate improved daily function LTG Duration 01/22/2020 Two Impairment shoulder ROM [employer] Gatherer Goal (LTG) Pt will improve bilateral shoulder active flexion to 135 degrees for improved ability to perform ADL's LTG Duration 01/22/2020 One Impairment Pt has no exercise program Short Term Goal (STG) Pt will be independent with HEP for support of therapy services provided in clinic STG Duration 12/18/2019 [place] [employer] Gatherer Goal (LTG) Pt will be independent with maintenance HEP LTG Duration 01/22/20 Assessment Summary Assessment Pt had good response able to move more CS rotation L post STMs, improved with TS rotation today, able to repeat set up and allowing shld relaxed depressed positioning during TS rotation today with decreased cuing. WOrked 1/2 tx on sit posture and sit <> stands facing w/c with less UE WB suport during with max cuing for LE positioning and hip hinge to stand. Will address more next tx. Provided hand out for self cuing and recall at home. Physical Therapy Plan Frequency and Duration Frequency of Treatment 2x/Week Duration of Treatment 10 weeks Plan of Care Start Date 11/13/19 Plan of Care End Date 01/22/20 Therapeutic Interventions Therapeutic Interventions Home Exercise Program,Joint Mobilizations,Manual Therapy, Neuromuscular Re-education, Patient/Caregiver Education, Self-Care/Home Management,Soft Tissue Mobilization, Therapeutic Activities, Therapeutic Exercises Other Therapeutic Interventions sleep positioning Next Visit Focus/Plan Next Note Type Treatment Note Next Visit Plan assess response to last tx; STM hooklying and sitting posture and extra time spent sit to stands. Progress sit to stand strengthening for stability during transfers and decreased upper body WB and pressure on CS.
--- NOTE | 2019-11-27 12:20 | PT.OTN ---
Current Diagnoses Cervicalgia (11/27/19) Abnormal posture (11/27/19) Physical Therapy Treatment Note PT-OP-A Visit Information Start: 11/13/19 08:51 Freq: Status: Active Protocol: Document 11/27/19 12:00 AW (Rec: 11/27/19 12:20 AW [email or web address]) Out-Patient Physical Therapy Visit Information Visit Information Visit Type Treatment Note Visit Start Time 11:15 Visit Stop Time 11:59 Total Visit Minutes 44 Visit Number 5 Number of DIRECTOR OF STUDENT FINANCIAL SERVICES Visits 0 PT-OP-B Current Condition Start: 11/13/19 08:51 Freq: Status: Active Protocol: Document 11/13/19 12:17 AW (Rec: 11/13/19 13:05 AW [email or web address]) Current Condition History of Current Condition Onset Date 1 year Current Complaints neck pain History of Current Condition Tali has a history of a fib diagnosed in the last few years and a fall resulting in ankle fracture one year ago. Prior to her fall, she was ambulatory with 4WW. She was NWB RLE after the fracture and never fully recovered her mobility. She now uses a manual wheelchair for most mobility. She lives at [facility] and receives med assist as well as standby assist with showers. Tali states she typically uses her legs to propel the wheelchair with the foot rests removed. She is also capable of self- propelling with her arms which she does ~25% of the time. Since transitioning to full- time wheelchair mobility, she has noticed increased neck pain which becomes so bad it makes her nauseous. She states her neck pain begins at the back of her head and can quickly become achy and sharp. Her pain tends to become worse as the day progresses unless she catches it early and gives herself a head massage. She states it usually helps to gently move her head side to side and up and down. Pt denies any head trauma, recent infection, bilateral upper extremity symptoms, or drop attacks. She reports left hip pain as well but agrees to focus this plan of care on her neck pain. 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 Patient Reported Progress Improving PT-OP-F Manual Assessment Start: 11/13/19 08:51 Freq: Status: Active Protocol: Document 11/13/19 12:17 AW (Rec: 11/13/19 13:05 AW [email or web address]) Manual Assessments Soft Tissue Assessment Soft Tissue Mobility Assessment Dense upper trapezius, bilateral cervical paraspinals , bilateral occipitals Joint Mobility Assessment Joint Mobility Assessment Good lateral movement C1-C7. Restricted PROM bilateral shoulders in flexion and abduction. PT-OP-H Neuro Start: 11/13/19 08:51 Freq: Status: Active Protocol: Document 11/13/19 12:17 AW (Rec: 11/13/19 13:05 AW [email or web address]) Sensation Evaluation Gross Sensation Gross Sensation WNL PT-OP-J Posture/Palpation/Skin Start: 11/13/19 08:51 Freq: Status: Active Protocol: Document 11/13/19 12:17 AW (Rec: 11/13/19 13:05 AW [email or web address]) Posture Evaluation Position Sitting Evaluation View Lateral Head/C-Spine Posture Extended,Forward Head T-Spine Posture Increased Kyphosis Shoulder Posture (L) Rounded,(R) Rounded,(L) Forward,(R) Forward Scapula Posture (L) Protracted,(R) Protracted Weight Distribution Balanced PT-OP-K Range of Motion Start: 11/13/19 08:51 Freq: Status: Active Protocol: Document 11/13/19 12:17 AW (Rec: 11/13/19 13:05 AW [email or web address]) Cervical Spine Range of Motion Cervical Spine Active Degrees Testing Position Sitting Flexion 60 Extension 20 Rotation Left 35 Rotation Right 45 Lateral Flexion Left 20 Lateral Flexion Right 20 ROM Limitations Soft Tissue Tightness Comments Reduced left rotation Shoulder Goniometric Range of Motion Shoulder Left Active Testing Position Sitting Flexion 130 Abduction 140 Shoulder ROM Limitations Shoulder ROM Limitations Soft Tissue Tightness Comments R AROM consistent with left. PROM also restricted bilaterally Elbow/Forearm Range of Motion Elbow/Forearm ROM Limitations Comments Bilat elbow ROM WNL PT-OP-L Special Tests Start: 11/13/19 08:51 Freq: Status: Active Protocol: Document 11/13/19 12:17 AW (Rec: 11/13/19 13:05 AW [email or web address]) Special Tests Cervical Spine Special Tests Alar Ligament Test Results intact Spurling's Test Test Results negative bilaterally Comments with cervical retraction PT-OP-M Strength Start: 11/13/19 08:51 Freq: Status: Active Protocol: Document 11/13/19 12:17 AW (Rec: 11/13/19 13:05 AW [email or web address]) Cervical Spine Strength Cervical Spine Manual Muscle Testing Testing Position Sitting Flexion (C1-2) 4+ Good+ Extension 4+ Good+ Rotation Left 4+ Good+ Rotation Right 4+ Good+ Lateral Flexion Left (C3) 4 Good Lateral Flexion Right (C3) 4 Good Scapula Strength Scapula Manual Muscle Testing Left Elevation (C4) 4+ Good+ Adduction 4- Good- Abduction 4 Good Depression 4 Good Comments Right consistent with left Shoulder Strength Shoulder Manual Muscle Testing Left Flexion 4 Good Extension 4 Good Abduction (C5) 4 Good External Rotation 4 Good Internal Rotation 4+ Good+ Comments Right consistent with left PT-OP-Q Treatments Start: 11/13/19 08:51 Freq: Status: Active Protocol: Document 11/27/19 12:00 AW (Rec: 11/27/19 12:20 AW [email or web address]) Therapeutic Exercises Sitting Exercises pressure relief Sitting Exercise Name pressure relief Side bilateral Reps/Minutes 5 sec hold x 10 Comments hands on propulsion rims isometric lat dorsi Sitting Exercise Name isometric lat dorsi Side bilateral Equipment Used trekking poles Reps/Minutes 3 sec hold x 10 reps Comments cued shoulder depression resisted row Sitting Exercise Name resisted row Side bilateral Resistance level 1 Equipment Used TB Reps/Minutes 10 reps x 2 Comments cued relaxed shoulders, scap retraction GH ER with resistance Sitting Exercise Name GH ER with resistance Resistance level 1 Equipment Used TB Reps/Minutes 10 reps x 2 Comments cued elbows tucked to sides, slow controlled movement, relaxed shoulders isometric neck all planes Sitting Exercise Name flexion, extension, SB, rotation Side bilateral Resistance manual Reps/Minutes 5 sec hold x 3 each direction scapular retraction Sitting Exercise Name scapular retraction Side bilateral Reps/Minutes 5 reps x 2 with 5 sec hold Comments tactile facilitation and cues: chest trunk lift cervical retraction Sitting Exercise Name cervical retraction w/chin nod Reps/Minutes 10 reps Comments cued for cs ext w/head nod vs cervical flexion Standing Exercises sit to stand Standing Exercise Name sit to stand Equipment Used w/c Reps/Minutes 8 Comments CGA with use of BUE for push off and eccentric control Manual Therapy Treatment Soft Tissue Mobilization cervical paraspinals and suboccipitals Body Location cervical paraspinals and suboccipitals Mobilization Type Strumming,Trigger Point Release Intensity/Depth Moderate Body Position Sitting Comments with active rotation and contract/relax for rotation ( more limited to the left) STM bilateral upper traps Body Location upper traps Mobilization Type Myofascial Release,Sustained Pressure,Trigger Point Release Intensity/Depth Moderate Body Position Hooklying PT-OP-T Assessment and Plan Start: 11/13/19 08:51 Freq: Status: Active Protocol: Document 11/27/19 12:00 AW (Rec: 11/27/19 12:20 AW [email or web address]) Physical Therapy Assessment Impairments Impairments Functional Activities, Functional Mobility,Pain, Posture,ROM,Sensation,Soft Tissue Mobility,Strength Other Concerns Fall Risk high Goals Four Impairment sleep Short Term Goal (STG) Pt will improve sleep hygiene and positioning to report increase in undisturbed sleep. STG Duration 12/18/2019 Mine Engineering Manager Goal (LTG) Pt will sleep 7 undisturbed hours for 3/7 nights. LTG Duration 01/22/2020 Three Impairment Pt scores 37/50 on NDI [facility] Goal (LTG) Pt will score 27/50 or less on NDI to indicate improved daily function LTG Duration 01/22/2020 Two Impairment shoulder ROM [facility] Goal (LTG) Pt will improve bilateral shoulder active flexion to 135 degrees for improved ability to perform ADL's LTG Duration 01/22/2020 One Impairment Pt has no exercise program Short Term Goal (STG) Pt will be independent with HEP for support of therapy services provided in clinic STG Duration 12/18/2019 Mine Engineering Manager Goal (LTG) Pt will be independent with maintenance HEP LTG Duration 01/22/20 Assessment Summary Assessment Pt continues to report improved neck mobility with fewer headaches. Initiated shoulder complex strengthening to reduce cervical strain and improve w/c propulsion mechanics with good tolerance. Physical Therapy Plan Frequency and Duration Frequency of Treatment 2x/Week Duration of Treatment 10 weeks Plan of Care Start Date 11/13/19 Plan of Care End Date 01/22/20 Therapeutic Interventions Therapeutic Interventions Home Exercise Program,Joint Mobilizations,Manual Therapy, Neuromuscular Re-education, Patient/Caregiver Education, Self-Care/Home Management,Soft Tissue Mobilization, Therapeutic Activities, Therapeutic Exercises Other Therapeutic Interventions sleep positioning Next Visit Focus/Plan Next Note Type Treatment Note Next Visit Plan assess response to last tx: shoulder strengthening Progress sit to stand strengthening for stability during transfers and decreased upper body WB and pressure on CS.
--- NOTE | 2019-11-29 13:00 | PT.OTN ---
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 Prior to her fall, she was ambulatory with 4WW. She was NWB RLE after the fracture and never fully recovered her mobility. She now uses a manual wheelchair for most mobility. She lives at [facility] and receives med assist as well as standby assist with showers. Tali states she typically uses her legs to propel the wheelchair with the foot rests removed. She is also capable of self- propelling with her arms which she does ~25% of the time. Since transitioning to full- time wheelchair mobility, she has noticed increased neck pain which becomes so bad it makes her nauseous. She states her neck pain begins at the back of her head and can quickly become achy and sharp. Her pain tends to become worse as the day progresses unless she catches it early and gives herself a head massage. She states it usually helps to gently move her head side to side and up and down. Pt denies any head trauma, recent infection, bilateral upper extremity symptoms, or drop attacks. She reports left hip pain as well but agrees to focus this plan of care on her neck pain. 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 PT-OP-F Manual Assessment Start: 11/13/19 08:51 Freq: Status: Active Protocol: Document 11/13/19 12:17 AW (Rec: 11/13/19 13:05 AW [email or web address]) Manual Assessments Soft Tissue Assessment Soft Tissue Mobility Assessment Dense upper trapezius, bilateral cervical paraspinals , bilateral occipitals Joint Mobility Assessment Joint Mobility Assessment Good lateral movement C1-C7. Restricted PROM bilateral shoulders in flexion and abduction. PT-OP-H Neuro Start: 11/13/19 08:51 Freq: Status: Active Protocol: Document 11/13/19 12:17 AW (Rec: 11/13/19 13:05 AW [email or web address]) Sensation Evaluation Gross Sensation Gross Sensation WNL PT-OP-J Posture/Palpation/Skin Start: 11/13/19 08:51 Freq: Status: Active Protocol: Document 11/13/19 12:17 AW (Rec: 11/13/19 13:05 AW [email or web address]) Posture Evaluation Position Sitting Evaluation View Lateral Head/C-Spine Posture Extended,Forward Head T-Spine Posture Increased Kyphosis Shoulder Posture (L) Rounded,(R) Rounded,(L) Forward,(R) Forward Scapula Posture (L) Protracted,(R) Protracted Weight Distribution Balanced PT-OP-K Range of Motion Start: 11/13/19 08:51 Freq: Status: Active Protocol: Document 11/13/19 12:17 AW (Rec: 11/13/19 13:05 AW [email or web address]) Cervical Spine Range of Motion Cervical Spine Active Degrees Testing Position Sitting Flexion 60 Extension 20 Rotation Left 35 Rotation Right 45 Lateral Flexion Left 20 Lateral Flexion Right 20 ROM Limitations Soft Tissue Tightness Comments Reduced left rotation Shoulder Goniometric Range of Motion Shoulder Left Active Testing Position Sitting Flexion 130 Abduction 140 Shoulder ROM Limitations Shoulder ROM Limitations Soft Tissue Tightness Comments R AROM consistent with left. PROM also restricted bilaterally Elbow/Forearm Range of Motion Elbow/Forearm ROM Limitations Comments Bilat elbow ROM WNL PT-OP-L Special Tests Start: 11/13/19 08:51 Freq: Status: Active Protocol: Document 11/13/19 12:17 AW (Rec: 11/13/19 13:05 AW [email or web address]) Special Tests Cervical Spine Special Tests Alar Ligament Test Results intact Spurling's Test Test Results negative bilaterally Comments with cervical retraction PT-OP-M Strength Start: 11/13/19 08:51 Freq: Status: Active Protocol: Document 11/13/19 12:17 AW (Rec: 11/13/19 13:05 AW [email or web address]) Cervical Spine Strength Cervical Spine Manual Muscle Testing Testing Position Sitting Flexion (C1-2) 4+ Good+ Extension 4+ Good+ Rotation Left 4+ Good+ Rotation Right 4+ Good+ Lateral Flexion Left (C3) 4 Good Lateral Flexion Right (C3) 4 Good Scapula Strength Scapula Manual Muscle Testing Left Elevation (C4) 4+ Good+ Adduction 4- Good- Abduction 4 Good Depression 4 Good Comments Right consistent with left Shoulder Strength Shoulder Manual Muscle Testing Left Flexion 4 Good Extension 4 Good Abduction (C5) 4 Good External Rotation 4 Good Internal Rotation 4+ Good+ Comments Right consistent with left PT-OP-Q Treatments Start: 11/13/19 08:51 Freq: Status: Active Protocol: Document 11/29/19 12:20 SP (Rec: 11/29/19 16:03 SP [id number]) Therapeutic Exercises Sitting Exercises resisted row Sitting Exercise Name resisted row Side bilateral Resistance level 1 Equipment Used TB Reps/Minutes 10 reps x 2 Comments cued relaxed shoulders, scap retraction GH ER with resistance Sitting Exercise Name GH ER with resistance Resistance level 1 Equipment Used TB Reps/Minutes 10 reps x 2 Comments cued elbows tucked to sides, slow controlled movement, relaxed shoulders isometric neck all planes Sitting Exercise Name flexion, extension (towel), SB , rotation Side bilateral Resistance manual Reps/Minutes 5 sec hold x 3 each direction scapular retraction Sitting Exercise Name scapular retraction Side bilateral Reps/Minutes 5 reps x 2 with 5 sec hold Comments tactile facilitation and cues: chest trunk lift cervical retraction Sitting Exercise Name cervical retraction w/chin nod Reps/Minutes 10 reps Comments cued for cs ext w/head nod vs cervical flexion Therapeutic Activity Therapeutic Activity SPT, supine<>sitting Name performed Reps/Minutes x5 (used FWW today) Comments SPT w/c 45 deg angle with self performance cued hip hinge to decrease UE WB, cued hip hinge wt shift over toes, supine<>sitting log roll. Manual Therapy Treatment Soft Tissue Mobilization cervical paraspinals and suboccipitals Body Location cervical paraspinals and suboccipitals Mobilization Type Strumming,Trigger Point Release Intensity/Depth Moderate Body Position Sitting Comments with active rotation and contract/relax for rotation ( more limited to the left) STM bilateral upper traps Body Location upper traps Mobilization Type Myofascial Release,Sustained Pressure,Trigger Point Release Intensity/Depth Moderate Body Position Hooklying PT-OP-T Assessment and Plan Start: 11/13/19 08:51 Freq: Status: Active Protocol: Document 11/29/19 12:20 SP (Rec: 11/29/19 16:03 SP [id number]) Physical Therapy Assessment Goals Four Impairment sleep Short Term Goal (STG) Pt will improve sleep hygiene and positioning to report increase in undisturbed sleep. STG Duration 12/18/2019 [facility] Goal (LTG) Pt will sleep 7 undisturbed hours for 3/7 nights. LTG Duration 01/22/2020 Three Impairment Pt scores 37/50 on NDI [facility] Goal (LTG) Pt will score 27/50 or less on NDI to indicate improved daily function LTG Duration 01/22/2020 Two Impairment shoulder ROM Operations Systems Specialist Goal (LTG) Pt will improve bilateral shoulder active flexion to 135 degrees for improved ability to perform ADL's LTG Duration 01/22/2020 One Impairment Pt has no exercise program Short Term Goal (STG) Pt will be independent with HEP for support of therapy services provided in clinic STG Duration 12/18/2019 [facility] Goal (LTG) Pt will be independent with maintenance HEP LTG Duration 01/22/20 Assessment Summary Assessment Pt reported BLE very sore and painful due to performing many transfers today during echo and stress test pre PT. Tx focused on HEP review, provided Tb for home application shld scap retraction/shld er and isometric c/s ext modification . Good response to tx, decreased neck tightness and more relaxed end of tx. Sit<> stand using FWW today to improved LE stability and reinforce upright posture for transfers in/out chair today. Physical Therapy Plan Frequency and Duration Frequency of Treatment 2x/Week Duration of Treatment weeks Plan of Care Start Date 11/13/19 Plan of Care End Date 01/22/20 Therapeutic Interventions Therapeutic Interventions Home Exercise Program,Joint Mobilizations,Manual Therapy, Neuromuscular Re-education, Patient/Caregiver Education, Self-Care/Home Management,Soft Tissue Mobilization, Therapeutic Activities, Therapeutic Exercises Other Therapeutic Interventions review sleep positioning, transfers Next Visit Focus/Plan Next Note Type Treatment Note Next Visit Plan assess response to last tx: manual neck, sit to stand LE and postural strengthening. Progress sit to stand strengthening for stability during transfers and decreased upper body WB and pressure on CS.
--- NOTE | 2019-12-13 15:15 | PT.OTN ---
Current Diagnoses Cervicalgia (12/13/19) Abnormal posture (12/13/19) Physical Therapy Treatment Note PT-OP-A Visit Information Start: 11/13/19 08:51 Freq: Status: Active Protocol: Document 12/13/19 14:36 SP (Rec: 12/13/19 16:11 SP [id number]) Out-Patient Physical Therapy Visit Information Visit Information Visit Type Treatment Note Visit Start Time 14:36 Visit Stop Time 15:15 Total Visit Minutes 39 Visit Number 7 Number of TAPER AND FLOATER Visits 2 PT-OP-B Current Condition Start: 11/13/19 08:51 Freq: Status: Active Protocol: Document 11/13/19 12:17 AW (Rec: 11/13/19 13:05 AW [email or web address]) Current Condition History of Current Condition Onset Date 1 year Current Complaints neck pain History of Current Condition Tali has a history of a fib diagnosed in the last few years and a fall resulting in ankle fracture one year ago. Prior to her fall, she was ambulatory with 4WW. She was NWB RLE after the fracture and never fully recovered her mobility. She now uses a manual wheelchair for most mobility. She lives at [facility] and receives med assist as well as standby assist with showers. Tali states she typically uses her legs to propel the wheelchair with the foot rests removed. She is also capable of self- propelling with her arms which she does ~25% of the time. Since transitioning to full- time wheelchair mobility, she has noticed increased neck pain which becomes so bad it makes her nauseous. She states her neck pain begins at the back of her head and can quickly become achy and sharp. Her pain tends to become worse as the day progresses unless she catches it early and gives herself a head massage. She states it usually helps to gently move her head side to side and up and down. Pt denies any head trauma, recent infection, bilateral upper extremity symptoms, or drop attacks. She reports left hip pain as well but agrees to focus this plan of care on her neck pain. 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 I am able to transfer better and feel more stable. PT-OP-F Manual Assessment Start: 11/13/19 08:51 Freq: Status: Active Protocol: Document 11/13/19 12:17 AW (Rec: 11/13/19 13:05 AW [email or web address]) Manual Assessments Soft Tissue Assessment Soft Tissue Mobility Assessment Dense upper trapezius, bilateral cervical paraspinals , bilateral occipitals Joint Mobility Assessment Joint Mobility Assessment Good lateral movement C1-C7. Restricted PROM bilateral shoulders in flexion and abduction. PT-OP-H Neuro Start: 11/13/19 08:51 Freq: Status: Active Protocol: Document 11/13/19 12:17 AW (Rec: 11/13/19 13:05 AW [email or web address]) Sensation Evaluation Gross Sensation Gross Sensation WNL PT-OP-J Posture/Palpation/Skin Start: 11/13/19 08:51 Freq: Status: Active Protocol: Document 11/13/19 12:17 AW (Rec: 11/13/19 13:05 AW [email or web address]) Posture Evaluation Position Sitting Evaluation View Lateral Head/C-Spine Posture Extended,Forward Head T-Spine Posture Increased Kyphosis Shoulder Posture (L) Rounded,(R) Rounded,(L) Forward,(R) Forward Scapula Posture (L) Protracted,(R) Protracted Weight Distribution Balanced PT-OP-K Range of Motion Start: 11/13/19 08:51 Freq: Status: Active Protocol: Document 11/13/19 12:17 AW (Rec: 11/13/19 13:05 AW [email or web address]) Cervical Spine Range of Motion Cervical Spine Active Degrees Testing Position Sitting Flexion 60 Extension 20 Rotation Left 35 Rotation Right 45 Lateral Flexion Left 20 Lateral Flexion Right 20 ROM Limitations Soft Tissue Tightness Comments Reduced left rotation Shoulder Goniometric Range of Motion Shoulder Left Active Testing Position Sitting Flexion 130 Abduction 140 Shoulder ROM Limitations Shoulder ROM Limitations Soft Tissue Tightness Comments R AROM consistent with left. PROM also restricted bilaterally Elbow/Forearm Range of Motion Elbow/Forearm ROM Limitations Comments Bilat elbow ROM WNL PT-OP-L Special Tests Start: 11/13/19 08:51 Freq: Status: Active Protocol: Document 11/13/19 12:17 AW (Rec: 11/13/19 13:05 AW [email or web address]) Special Tests Cervical Spine Special Tests Alar Ligament Test Results intact Spurling's Test Test Results negative bilaterally Comments with cervical retraction PT-OP-M Strength Start: 11/13/19 08:51 Freq: Status: Active Protocol: Document 11/13/19 12:17 AW (Rec: 11/13/19 13:05 AW [email or web address]) Cervical Spine Strength Cervical Spine Manual Muscle Testing Testing Position Sitting Flexion (C1-2) 4+ Good+ Extension 4+ Good+ Rotation Left 4+ Good+ Rotation Right 4+ Good+ Lateral Flexion Left (C3) 4 Good Lateral Flexion Right (C3) 4 Good Scapula Strength Scapula Manual Muscle Testing Left Elevation (C4) 4+ Good+ Adduction 4- Good- Abduction 4 Good Depression 4 Good Comments Right consistent with left Shoulder Strength Shoulder Manual Muscle Testing Left Flexion 4 Good Extension 4 Good Abduction (C5) 4 Good External Rotation 4 Good Internal Rotation 4+ Good+ Comments Right consistent with left PT-OP-Q Treatments Start: 11/13/19 08:51 Freq: Status: Active Protocol: Document 12/13/19 14:36 SP (Rec: 12/13/19 16:11 SP [id number]) Therapeutic Exercises Sidelying Exercises open book Sidelying Exercise Name hand on head Side bilateral Resistance AROM Reps/Minutes x5 R and L Comments support for lower body stationary, cued head with arm movement naman range Sitting Exercises resisted row Sitting Exercise Name resisted row Side bilateral Resistance level 1 Equipment Used TB Reps/Minutes 10 reps x 2 Comments cued relaxed shoulders, scap retraction GH ER with resistance Sitting Exercise Name GH ER with resistance Resistance level 1 Equipment Used TB Reps/Minutes 10 reps x 2 Comments cued elbows tucked to sides, slow controlled movement, relaxed shoulders isometric neck all planes Sitting Exercise Name flexion, extension (towel), SB , rotation Side bilateral Resistance manual Reps/Minutes 5 sec hold x 3 each direction scapular retraction Sitting Exercise Name scapular retraction Side bilateral Reps/Minutes 5 reps x 2 with 5 sec hold Comments tactile facilitation and cues: chest trunk lift cervical retraction Sitting Exercise Name cervical retraction w/chin nod Reps/Minutes 10 reps Comments cued for cs ext w/head nod vs cervical flexion Standing Exercises sit to stand Standing Exercise Name sit to stand Equipment Used w/c, FWW front Reps/Minutes 8 Comments CGA with use of BUE for push off and eccentric control Therapeutic Activity Therapeutic Activity SPT, supine<>sitting Name performed Reps/Minutes x5 (used FWW today and 90 deg using chair arms support) Comments SPT w/c <> table cued hip hinge to decrease UE WB, cued hip hinge wt shift over toes, supine<>sitting log roll. Manual Therapy Treatment Soft Tissue Mobilization cervical paraspinals and suboccipitals Body Location cervical paraspinals and suboccipitals Mobilization Type Strumming,Trigger Point Release Intensity/Depth Moderate Body Position Sitting Comments with active rotation and contract/relax for rotation ( more limited to the left) STM bilateral upper traps Body Location upper traps Mobilization Type Myofascial Release,Sustained Pressure,Trigger Point Release Intensity/Depth Moderate Body Position Hooklying PT-OP-T Assessment and Plan Start: 11/13/19 08:51 Freq: Status: Active Protocol: Document 12/13/19 14:36 SP (Rec: 12/13/19 16:11 SP [id number]) Physical Therapy Assessment Goals Four Impairment sleep Short Term Goal (STG) Pt will improve sleep hygiene and positioning to report increase in undisturbed sleep. STG Duration 12/18/2019 [employer] Goal (LTG) Pt will sleep 7 undisturbed hours for 3/7 nights. LTG Duration 01/22/2020 Three Impairment Pt scores 37/50 on NDI [employer] Goal (LTG) Pt will score 27/50 or less on NDI to indicate improved daily function LTG Duration 01/22/2020 Two Impairment shoulder ROM [facility] Goal (LTG) Pt will improve bilateral shoulder active flexion to 135 degrees for improved ability to perform ADL's LTG Duration 01/22/2020 One Impairment Pt has no exercise program Short Term Goal (STG) Pt will be independent with HEP for support of therapy services provided in clinic STG Duration 12/18/2019 [facility] Goal (LTG) Pt will be independent with maintenance HEP LTG Duration 01/22/20 Assessment Summary Assessment Pt stated her neck was a little sore after last tx but felt better the next day. Pt improving in upright posture standing with improved hip hinge and less UE WB pressure today. Pt reported I feel looser. End of tx. Physical Therapy Plan Frequency and Duration Frequency of Treatment 2x/Week Duration of Treatment 10 weeks Plan of Care Start Date 11/13/19 Plan of Care End Date 01/22/20 Therapeutic Interventions Therapeutic Interventions Home Exercise Program,Joint Mobilizations,Manual Therapy, Neuromuscular Re-education, Patient/Caregiver Education, Self-Care/Home Management,Soft Tissue Mobilization, Therapeutic Activities, Therapeutic Exercises Other Therapeutic Interventions review sleep positioning, transfers Next Visit Focus/Plan Next Note Type Treatment Note Next Visit Plan assess response to last tx: manual neck, sit to stand LE and postural strengthening. Progress sit to stand strengthening for stability during transfers and decreased upper body WB and pressure on CS.
--- NOTE | 2019-12-20 13:00 | PT.OTN ---
Current Diagnoses Cervicalgia (12/20/19) Abnormal posture (12/20/19) Physical Therapy Treatment Note PT-OP-A Visit Information Start: 11/13/19 08:51 Freq: Status: Active Protocol: Document 12/20/19 12:15 SP (Rec: 12/20/19 15:36 SP [id number]) Out-Patient Physical Therapy Visit Information Visit Information Visit Type Treatment Note Visit Note PT 5th visit next. Visit Start Time 12:15 Visit Stop Time 13:00 Total Visit Minutes 45 Visit Number 8 Number of PRINTING PLATE CLERK Visits 3 PT-OP-B Current Condition Start: 11/13/19 08:51 Freq: Status: Active Protocol: Document 11/13/19 12:17 AW (Rec: 11/13/19 13:05 AW [email or web address]) Current Condition History of Current Condition Onset Date 1 year Current Complaints neck pain History of Current Condition Tali has a history of a fib diagnosed in the last few years and a fall resulting in ankle fracture one year ago. Prior to her fall, she was ambulatory with 4WW. She was NWB RLE after the fracture and never fully recovered her mobility. She now uses a manual wheelchair for most mobility. She lives at [facility] and receives med assist as well as standby assist with showers. Tali states she typically uses her legs to propel the wheelchair with the foot rests removed. She is also capable of self- propelling with her arms which she does ~25% of the time. Since transitioning to full- time wheelchair mobility, she has noticed increased neck pain which becomes so bad it makes her nauseous. She states her neck pain begins at the back of her head and can quickly become achy and sharp. Her pain tends to become worse as the day progresses unless she catches it early and gives herself a head massage. She states it usually helps to gently move her head side to side and up and down. Pt denies any head trauma, recent infection, bilateral upper extremity symptoms, or drop attacks. She reports left hip pain as well but agrees to focus this plan of care on her neck pain. 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 PT-OP-F Manual Assessment Start: 11/13/19 08:51 Freq: Status: Active Protocol: Document 11/13/19 12:17 AW (Rec: 11/13/19 13:05 AW [email or web address]) Manual Assessments Soft Tissue Assessment Soft Tissue Mobility Assessment Dense upper trapezius, bilateral cervical paraspinals , bilateral occipitals Joint Mobility Assessment Joint Mobility Assessment Good lateral movement C1-C7. Restricted PROM bilateral shoulders in flexion and abduction. PT-OP-H Neuro Start: 11/13/19 08:51 Freq: Status: Active Protocol: Document 11/13/19 12:17 AW (Rec: 11/13/19 13:05 AW [email or web address]) Sensation Evaluation Gross Sensation Gross Sensation WNL PT-OP-J Posture/Palpation/Skin Start: 11/13/19 08:51 Freq: Status: Active Protocol: Document 11/13/19 12:17 AW (Rec: 11/13/19 13:05 AW [email or web address]) Posture Evaluation Position Sitting Evaluation View Lateral Head/C-Spine Posture Extended,Forward Head T-Spine Posture Increased Kyphosis Shoulder Posture (L) Rounded,(R) Rounded,(L) Forward,(R) Forward Scapula Posture (L) Protracted,(R) Protracted Weight Distribution Balanced PT-OP-K Range of Motion Start: 11/13/19 08:51 Freq: Status: Active Protocol: Document 11/13/19 12:17 AW (Rec: 11/13/19 13:05 AW [email or web address]) Cervical Spine Range of Motion Cervical Spine Active Degrees Testing Position Sitting Flexion 60 Extension 20 Rotation Left 35 Rotation Right 45 Lateral Flexion Left 20 Lateral Flexion Right 20 ROM Limitations Soft Tissue Tightness Comments Reduced left rotation Shoulder Goniometric Range of Motion Shoulder Left Active Testing Position Sitting Flexion 130 Abduction 140 Shoulder ROM Limitations Shoulder ROM Limitations Soft Tissue Tightness Comments R AROM consistent with left. PROM also restricted bilaterally Elbow/Forearm Range of Motion Elbow/Forearm ROM Limitations Comments Bilat elbow ROM WNL PT-OP-L Special Tests Start: 11/13/19 08:51 Freq: Status: Active Protocol: Document 11/13/19 12:17 AW (Rec: 11/13/19 13:05 AW [email or web address]) Special Tests Cervical Spine Special Tests Alar Ligament Test Results intact Spurling's Test Test Results negative bilaterally Comments with cervical retraction PT-OP-M Strength Start: 11/13/19 08:51 Freq: Status: Active Protocol: Document 11/13/19 12:17 AW (Rec: 11/13/19 13:05 AW [email or web address]) Cervical Spine Strength Cervical Spine Manual Muscle Testing Testing Position Sitting Flexion (C1-2) 4+ Good+ Extension 4+ Good+ Rotation Left 4+ Good+ Rotation Right 4+ Good+ Lateral Flexion Left (C3) 4 Good Lateral Flexion Right (C3) 4 Good Scapula Strength Scapula Manual Muscle Testing Left Elevation (C4) 4+ Good+ Adduction 4- Good- Abduction 4 Good Depression 4 Good Comments Right consistent with left Shoulder Strength Shoulder Manual Muscle Testing Left Flexion 4 Good Extension 4 Good Abduction (C5) 4 Good External Rotation 4 Good Internal Rotation 4+ Good+ Comments Right consistent with left PT-OP-Q Treatments Start: 11/13/19 08:51 Freq: Status: Active Protocol: Document 12/20/19 12:15 SP (Rec: 12/20/19 15:36 SP [id number]) Cardio Equipment Recumbent Elliptical (BiodZolpy) Duration (Minutes) 6 Resistance 1 Seat Position 10 Other reported 8/10 L knee initially repositioned pelvis dec 05/06, feels good ROM Therapeutic Exercises Sitting Exercises cervical rotation Sitting Exercise Name AROM and little over pressure stretch Side bilateral Reps/Minutes 20 sec hold x3 Comments cued don't perform to hard over pressure resisted row Sitting Exercise Name resisted row Side bilateral Resistance level 2 Equipment Used TB Reps/Minutes 10 reps x 2 Comments cued relaxed shoulders, scap retraction scapular retraction Sitting Exercise Name scapular retraction Side bilateral Reps/Minutes 5 reps x 2 with 5 sec hold Comments tactile facilitation and cues: chest trunk lift cervical retraction Sitting Exercise Name cervical retraction w/chin nod Reps/Minutes 10 reps Comments cued for cs ext w/head nod vs cervical flexion upper traps stretch Sitting Exercise Name upper traps stretch Side bilateral Resistance self and little self over pressure stretch Reps/Minutes 30 sec x 4 Comments cued don't perform to hard over pressure Standing Exercises sit to stand Standing Exercise Name sit to stand Equipment Used w/c, FWW front Reps/Minutes 2 Comments CGA with use of BUE for push off and eccentric control Therapeutic Activity Therapeutic Activity SPT, supine<>sitting Name performed Reps/Minutes x3 (used FWW today and 90 deg using chair arms support) Comments SPT w/c <> chair/biodex cued hip hinge to decrease UE WB, cued hip hinge wt shift over toes, supine<>sitting log roll . PT-OP-T Assessment and Plan Start: 11/13/19 08:51 Freq: Status: Active Protocol: Document 12/20/19 12:15 SP (Rec: 12/20/19 15:36 SP [id number]) Physical Therapy Assessment Goals Four Impairment sleep Short Term Goal (STG) Pt will improve sleep hygiene and positioning to report increase in undisturbed sleep. STG Duration 12/18/2019 [facility] Goal (LTG) Pt will sleep 7 undisturbed hours for 3/7 nights. LTG Duration 01/22/2020 Three Impairment Pt scores 37/50 on NDI Mcc Goal (LTG) Pt will score 27/50 or less on NDI to indicate improved daily function LTG Duration 01/22/2020 Two Impairment shoulder ROM Defensive Fire Control Systems Operator Goal (LTG) Pt will improve bilateral shoulder active flexion to 135 degrees for improved ability to perform ADL's LTG Duration 01/22/2020 One Impairment Pt has no exercise program Short Term Goal (STG) Pt will be independent with HEP for support of therapy services provided in clinic STG Duration 12/18/2019 Mcc Goal (LTG) Pt will be independent with maintenance HEP LTG Duration 01/22/20 Assessment Summary Assessment Reviewed HEP cervical neck stretching, AROM, DNF and scap stabilization with cuing for set up and upright posture . Pt decreased activitiy tolerance during transfers today, required Sean and cuing for quad facilitation and use of gait belt for safety to decrease risk for falls. Pt reported her B thighs have been hurting more today and not as strong, only performs transfers with staff when ask and need use bathroom and get in/out bed lately. Physical Therapy Plan Frequency and Duration Frequency of Treatment 2x/Week Duration of Treatment weeks Plan of Care Start Date 11/13/19 Plan of Care End Date 01/22/20 Therapeutic Interventions Therapeutic Interventions Home Exercise Program,Joint Mobilizations,Manual Therapy, Neuromuscular Re-education, Patient/Caregiver Education, Self-Care/Home Management,Soft Tissue Mobilization, Therapeutic Activities, Therapeutic Exercises Other Therapeutic Interventions review sleep positioning, transfers Next Visit Focus/Plan Next Note Type Treatment Note Next Visit Plan assess response to last tx: postural strengthening, biodex and cervical flexibility and transfers SPT. Continue Progress sit to stand strengthening for stability during transfers and decreased upper body WB and pressure on CS.
--- NOTE | 2019-12-23 13:51 | PT.OTN ---
Current Diagnoses Cervicalgia (12/23/19) Abnormal posture (12/23/19) Physical Therapy Treatment Note PT-OP-A Visit Information Start: 11/13/19 08:51 Freq: Status: Active Protocol: Document 12/23/19 13:06 SP (Rec: 12/23/19 17:04 SP [id number]) Out-Patient Physical Therapy Visit Information Visit Information Visit Type Treatment Note Visit Note Next tx 5th visit. Visit Start Time 13:06 Visit Stop Time 13:51 Total Visit Minutes 45 Visit Number 9 Number of CHECKOUT SUPERVISOR Visits 4 PT-OP-B Current Condition Start: 11/13/19 08:51 Freq: Status: Active Protocol: Document 11/13/19 12:17 AW (Rec: 11/13/19 13:05 AW [email or web address]) Current Condition History of Current Condition Onset Date 1 year Current Complaints neck pain History of Current Condition Tali has a history of a fib diagnosed in the last few years and a fall resulting in ankle fracture one year ago. Prior to her fall, she was ambulatory with 4WW. She was NWB RLE after the fracture and never fully recovered her mobility. She now uses a manual wheelchair for most mobility. She lives at [facility] and receives med assist as well as standby assist with showers. Tali states she typically uses her legs to propel the wheelchair with the foot rests removed. She is also capable of self- propelling with her arms which she does ~25% of the time. Since transitioning to full- time wheelchair mobility, she has noticed increased neck pain which becomes so bad it makes her nauseous. She states her neck pain begins at the back of her head and can quickly become achy and sharp. Her pain tends to become worse as the day progresses unless she catches it early and gives herself a head massage. She states it usually helps to gently move her head side to side and up and down. Pt denies any head trauma, recent infection, bilateral upper extremity symptoms, or drop attacks. She reports left hip pain as well but agrees to focus this plan of care on her neck pain. 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 Patient Reported Progress Worse PT-OP-F Manual Assessment Start: 11/13/19 08:51 Freq: Status: Active Protocol: Document 11/13/19 12:17 AW (Rec: 11/13/19 13:05 AW [email or web address]) Manual Assessments Soft Tissue Assessment Soft Tissue Mobility Assessment Dense upper trapezius, bilateral cervical paraspinals , bilateral occipitals Joint Mobility Assessment Joint Mobility Assessment Good lateral movement C1-C7. Restricted PROM bilateral shoulders in flexion and abduction. PT-OP-H Neuro Start: 11/13/19 08:51 Freq: Status: Active Protocol: Document 11/13/19 12:17 AW (Rec: 11/13/19 13:05 AW [email or web address]) Sensation Evaluation Gross Sensation Gross Sensation WNL PT-OP-J Posture/Palpation/Skin Start: 11/13/19 08:51 Freq: Status: Active Protocol: Document 11/13/19 12:17 AW (Rec: 11/13/19 13:05 AW [email or web address]) Posture Evaluation Position Sitting Evaluation View Lateral Head/C-Spine Posture Extended,Forward Head T-Spine Posture Increased Kyphosis Shoulder Posture (L) Rounded,(R) Rounded,(L) Forward,(R) Forward Scapula Posture (L) Protracted,(R) Protracted Weight Distribution Balanced PT-OP-K Range of Motion Start: 11/13/19 08:51 Freq: Status: Active Protocol: Document 11/13/19 12:17 AW (Rec: 11/13/19 13:05 AW [email or web address]) Cervical Spine Range of Motion Cervical Spine Active Degrees Testing Position Sitting Flexion 60 Extension 20 Rotation Left 35 Rotation Right 45 Lateral Flexion Left 20 Lateral Flexion Right 20 ROM Limitations Soft Tissue Tightness Comments Reduced left rotation Shoulder Goniometric Range of Motion Shoulder Left Active Testing Position Sitting Flexion 130 Abduction 140 Shoulder ROM Limitations Shoulder ROM Limitations Soft Tissue Tightness Comments R AROM consistent with left. PROM also restricted bilaterally Elbow/Forearm Range of Motion Elbow/Forearm ROM Limitations Comments Bilat elbow ROM WNL PT-OP-L Special Tests Start: 11/13/19 08:51 Freq: Status: Active Protocol: Document 11/13/19 12:17 AW (Rec: 11/13/19 13:05 AW [email or web address]) Special Tests Cervical Spine Special Tests Alar Ligament Test Results intact Spurling's Test Test Results negative bilaterally Comments with cervical retraction PT-OP-M Strength Start: 11/13/19 08:51 Freq: Status: Active Protocol: Document 11/13/19 12:17 AW (Rec: 11/13/19 13:05 AW [email or web address]) Cervical Spine Strength Cervical Spine Manual Muscle Testing Testing Position Sitting Flexion (C1-2) 4+ Good+ Extension 4+ Good+ Rotation Left 4+ Good+ Rotation Right 4+ Good+ Lateral Flexion Left (C3) 4 Good Lateral Flexion Right (C3) 4 Good Scapula Strength Scapula Manual Muscle Testing Left Elevation (C4) 4+ Good+ Adduction 4- Good- Abduction 4 Good Depression 4 Good Comments Right consistent with left Shoulder Strength Shoulder Manual Muscle Testing Left Flexion 4 Good Extension 4 Good Abduction (C5) 4 Good External Rotation 4 Good Internal Rotation 4+ Good+ Comments Right consistent with left PT-OP-Q Treatments Start: 11/13/19 08:51 Freq: Status: Active Protocol: Document 12/23/19 13:06 SP (Rec: 12/23/19 17:04 SP [id number]) Cardio Equipment Recumbent Elliptical (Fon) Duration (Minutes) 2 Resistance 1 Seat Position 10 Other stopped at 1 min due to pain L >R knee pain. Therapeutic Exercises Sitting Exercises cervical rotation Sitting Exercise Name AROM and little over pressure stretch Side bilateral Reps/Minutes 20 sec hold x3 Comments cued don't perform to hard over pressure resisted row Sitting Exercise Name resisted row Side bilateral Resistance level 2 Equipment Used TB Reps/Minutes 10 reps x 2 Comments cued relaxed shoulders, scap retraction GH ER with resistance Sitting Exercise Name GH ER with resistance Resistance level 1 Equipment Used TB Reps/Minutes 10 reps x 2 Comments cued elbows tucked to sides, slow controlled movement, relaxed shoulders cervical retraction Sitting Exercise Name cervical retraction w/chin nod Reps/Minutes 10 reps Comments cued for cs ext w/head nod vs cervical flexion upper traps stretch Sitting Exercise Name upper traps stretch Side bilateral Resistance self and little self over pressure stretch Reps/Minutes 30 sec x 4 Comments cued don't perform to hard over pressure Standing Exercises sit to stand Standing Exercise Name sit to stand Equipment Used w/c<>table or biodex Reps/Minutes 5 Comments CGA with use of BUE for push off and eccentric control Therapeutic Activity Therapeutic Activity SPT, supine<>sitting Name SPT x5 reps w/c<> mat table Comments cued LE ext during pivot and BLE fully stepping bacl to chair/ table for increase standing stability and decrease risk for falls. Manual Therapy Treatment Soft Tissue Mobilization cervical paraspinals and suboccipitals Body Location suboccipitals Mobilization Type Strumming,Trigger Point Release Intensity/Depth Moderate Body Position Sitting Comments with active rotation and contract/relax for rotation ( more limited to the left) Showed self use of theracane- will provide pic fo STM bilateral upper traps Body Location upper traps Mobilization Type Myofascial Release,Sustained Pressure,Trigger Point Release Intensity/Depth Moderate Body Position Hooklying PT-OP-T Assessment and Plan Start: 11/13/19 08:51 Freq: Status: Active Protocol: Document 12/23/19 13:06 SP (Rec: 12/23/19 17:04 SP [id number]) Physical Therapy Assessment Goals Four Impairment sleep Short Term Goal (STG) Pt will improve sleep hygiene and positioning to report increase in undisturbed sleep. STG Duration 12/18/2019 Fdc Goal (LTG) Pt will sleep 7 undisturbed hours for 3/7 nights. LTG Duration 01/22/2020 Three Impairment Pt scores 37/50 on NDI Chromium Plater Goal (LTG) Pt will score 27/50 or less on NDI to indicate improved daily function LTG Duration 01/22/2020 Two Impairment shoulder ROM Fdc Goal (LTG) Pt will improve bilateral shoulder active flexion to 135 degrees for improved ability to perform ADL's LTG Duration 01/22/2020 One Impairment Pt has no exercise program Short Term Goal (STG) Pt will be independent with HEP for support of therapy services provided in clinic STG Duration 12/18/2019 Chromium Plater Goal (LTG) Pt will be independent with maintenance HEP LTG Duration 01/22/20 Assessment Summary Assessment Pt required HEP review of neck stretching, resisted Tb ex and SPT to improve pain and stabilization for transfers. Instructed wrap TB around horizontal door handle to anchor with improved results during tx. Instructed use of theracane for self STMs- very beneficial and will provide hand out in chart next tx so family can purchase for her. Physical Therapy Plan Frequency and Duration Frequency of Treatment 2x/Week Duration of Treatment 10 weeks Plan of Care Start Date 11/13/19 Plan of Care End Date 01/22/20 Therapeutic Interventions Therapeutic Interventions Home Exercise Program,Joint Mobilizations,Manual Therapy, Neuromuscular Re-education, Patient/Caregiver Education, Self-Care/Home Management,Soft Tissue Mobilization, Therapeutic Activities, Therapeutic Exercises Other Therapeutic Interventions review sleep positioning, transfers Next Visit Focus/Plan Next Note Type Treatment Note Next Visit Plan assess response to last tx: postural strengthening, biodex (not good response knee pain dc today) and cervical flexibility and transfers SPT. Continue Progress sit to stand strengthening for stability during transfers and decreased upper body WB and pressure on CS.
--- NOTE | 2019-12-25 17:29 | PT.OTN ---
Current Diagnoses Cervicalgia (12/25/19) Abnormal posture (12/25/19) Physical Therapy Treatment Note PT-OP-A Visit Information Start: 11/13/19 08:51 Freq: Status: Active Protocol: Document 12/25/19 17:18 AW (Rec: 12/25/19 17:29 AW [email or web address]) Out-Patient Physical Therapy Visit Information Visit Information Visit Type Treatment Note Visit Start Time 16:00 Visit Stop Time 16:45 Total Visit Minutes 45 Visit Number 10 Number of UNIVERSITY REGISTRAR Visits 0 PT-OP-B Current Condition Start: 11/13/19 08:51 Freq: Status: Active Protocol: Document 11/13/19 12:17 AW (Rec: 11/13/19 13:05 AW [email or web address]) Current Condition History of Current Condition Onset Date 1 year Current Complaints neck pain History of Current Condition Tali has a history of a fib diagnosed in the last few years and a fall resulting in ankle fracture one year ago. Prior to her fall, she was ambulatory with 4WW. She was NWB RLE after the fracture and never fully recovered her mobility. She now uses a manual wheelchair for most mobility. She lives at [facility] and receives med assist as well as standby assist with showers. Tali states she typically uses her legs to propel the wheelchair with the foot rests removed. She is also capable of self- propelling with her arms which she does ~25% of the time. Since transitioning to full- time wheelchair mobility, she has noticed increased neck pain which becomes so bad it makes her nauseous. She states her neck pain begins at the back of her head and can quickly become achy and sharp. Her pain tends to become worse as the day progresses unless she catches it early and gives herself a head massage. She states it usually helps to gently move her head side to side and up and down. Pt denies any head trauma, recent infection, bilateral upper extremity symptoms, or drop attacks. She reports left hip pain as well but agrees to focus this plan of care on her neck pain. 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 PT-OP-F Manual Assessment Start: 11/13/19 08:51 Freq: Status: Active Protocol: Document 11/13/19 12:17 AW (Rec: 11/13/19 13:05 AW [email or web address]) Manual Assessments Soft Tissue Assessment Soft Tissue Mobility Assessment Dense upper trapezius, bilateral cervical paraspinals , bilateral occipitals Joint Mobility Assessment Joint Mobility Assessment Good lateral movement C1-C7. Restricted PROM bilateral shoulders in flexion and abduction. PT-OP-H Neuro Start: 11/13/19 08:51 Freq: Status: Active Protocol: Document 11/13/19 12:17 AW (Rec: 11/13/19 13:05 AW [email or web address]) Sensation Evaluation Gross Sensation Gross Sensation WNL PT-OP-J Posture/Palpation/Skin Start: 11/13/19 08:51 Freq: Status: Active Protocol: Document 11/13/19 12:17 AW (Rec: 11/13/19 13:05 AW [email or web address]) Posture Evaluation Position Sitting Evaluation View Lateral Head/C-Spine Posture Extended,Forward Head T-Spine Posture Increased Kyphosis Shoulder Posture (L) Rounded,(R) Rounded,(L) Forward,(R) Forward Scapula Posture (L) Protracted,(R) Protracted Weight Distribution Balanced PT-OP-K Range of Motion Start: 11/13/19 08:51 Freq: Status: Active Protocol: Document 11/13/19 12:17 AW (Rec: 11/13/19 13:05 AW [email or web address]) Cervical Spine Range of Motion Cervical Spine Active Degrees Testing Position Sitting Flexion 60 Extension 20 Rotation Left 35 Rotation Right 45 Lateral Flexion Left 20 Lateral Flexion Right 20 ROM Limitations Soft Tissue Tightness Comments Reduced left rotation Shoulder Goniometric Range of Motion Shoulder Left Active Testing Position Sitting Flexion 130 Abduction 140 Shoulder ROM Limitations Shoulder ROM Limitations Soft Tissue Tightness Comments R AROM consistent with left. PROM also restricted bilaterally Elbow/Forearm Range of Motion Elbow/Forearm ROM Limitations Comments Bilat elbow ROM WNL PT-OP-L Special Tests Start: 11/13/19 08:51 Freq: Status: Active Protocol: Document 11/13/19 12:17 AW (Rec: 11/13/19 13:05 AW [email or web address]) Special Tests Cervical Spine Special Tests Alar Ligament Test Results intact Spurling's Test Test Results negative bilaterally Comments with cervical retraction PT-OP-M Strength Start: 11/13/19 08:51 Freq: Status: Active Protocol: Document 11/13/19 12:17 AW (Rec: 11/13/19 13:05 AW [email or web address]) Cervical Spine Strength Cervical Spine Manual Muscle Testing Testing Position Sitting Flexion (C1-2) 4+ Good+ Extension 4+ Good+ Rotation Left 4+ Good+ Rotation Right 4+ Good+ Lateral Flexion Left (C3) 4 Good Lateral Flexion Right (C3) 4 Good Scapula Strength Scapula Manual Muscle Testing Left Elevation (C4) 4+ Good+ Adduction 4- Good- Abduction 4 Good Depression 4 Good Comments Right consistent with left Shoulder Strength Shoulder Manual Muscle Testing Left Flexion 4 Good Extension 4 Good Abduction (C5) 4 Good External Rotation 4 Good Internal Rotation 4+ Good+ Comments Right consistent with left PT-OP-Q Treatments Start: 11/13/19 08:51 Freq: Status: Active Protocol: Document 12/25/19 17:18 AW (Rec: 12/25/19 17:29 AW [email or web address]) Therapeutic Exercises Sitting Exercises resisted horizontal abduction Sitting Exercise Name resisted horizontal abduction Side bilateral Resistance level 1 Equipment Used TB Reps/Minutes 10 reps x 2 isometric lat dorsi Sitting Exercise Name isometric lat dorsi Side bilateral Equipment Used trekking poles Reps/Minutes 3 sec hold x 10 reps Comments cued shoulder depression resisted row Sitting Exercise Name resisted row Side bilateral Resistance level 2 Equipment Used TB Reps/Minutes 10 reps x 2 Comments cued relaxed shoulders, scap retraction GH ER with resistance Sitting Exercise Name GH ER with resistance Resistance level 1 Equipment Used TB Reps/Minutes 10 reps x 2 Comments cued elbows tucked to sides, slow controlled movement, relaxed shoulders upper traps stretch Sitting Exercise Name upper traps stretch Side bilateral Resistance self and little self over pressure stretch Reps/Minutes 30 sec x 4 Comments cued don't perform to hard over pressure Therapeutic Activity Therapeutic Activity SPT, supine<>sitting Name SPT Reps/Minutes 4 reps Comments w/c <> mat x 2 with FWW and mod A x 1 with final attempt including 5' ambulation Manual Therapy Treatment Soft Tissue Mobilization cervical paraspinals and suboccipitals Body Location suboccipitals Mobilization Type Strumming,Trigger Point Release Intensity/Depth Moderate Body Position Sitting Comments with active rotation and contract/relax for rotation ( more limited to the left) STM bilateral upper traps Body Location upper traps Mobilization Type Myofascial Release,Sustained Pressure,Trigger Point Release Intensity/Depth Moderate Body Position Hooklying PT-OP-T Assessment and Plan Start: 11/13/19 08:51 Freq: Status: Active Protocol: Document 12/25/19 17:18 AW (Rec: 12/25/19 17:29 AW [email or web address]) Physical Therapy Assessment Goals Four Impairment sleep Short Term Goal (STG) Pt will improve sleep hygiene and positioning to report increase in undisturbed sleep. STG Duration 12/18/2019 Bss Solution Architect Goal (LTG) Pt will sleep 7 undisturbed hours for 3/7 nights. LTG Duration 01/22/2020 Three Impairment Pt scores 37/50 on NDI Bss Solution Architect Goal (LTG) Pt will score 27/50 or less on NDI to indicate improved daily function LTG Duration 01/22/2020 Two Impairment shoulder ROM Bss Solution Architect Goal (LTG) Pt will improve bilateral shoulder active flexion to 135 degrees for improved ability to perform ADL's LTG Duration 01/22/2020 One Impairment Pt has no exercise program Short Term Goal (STG) Pt will be independent with HEP for support of therapy services provided in clinic STG Duration 12/18/2019 [facility] Goal (LTG) Pt will be independent with maintenance HEP LTG Duration 01/22/20 Assessment Summary Assessment Pt states she is having fewer cervical spine complaints and is becoming more concerned with BLE pain, tightness, and weakness. Consider concluding current POC and advised pt may need to seek new referral. Physical Therapy Plan Frequency and Duration Frequency of Treatment 2x/Week Duration of Treatment 10 weeks Plan of Care Start Date 11/13/19 Plan of Care End Date 01/22/20 Therapeutic Interventions Therapeutic Interventions Home Exercise Program,Joint Mobilizations,Manual Therapy, Neuromuscular Re-education, Patient/Caregiver Education, Self-Care/Home Management,Soft Tissue Mobilization, Therapeutic Activities, Therapeutic Exercises Next Visit Focus/Plan Next Note Type Treatment Note Next Visit Plan assess response to last tx: postural strengthening, biodex and cervical flexibility and transfers SPT. Continue Progress sit to stand strengthening for stability during transfers and decreased upper body WB and pressure on CS.
--- NOTE | 2020-01-01 16:18 | PT.OTN ---
Current Diagnoses Cervicalgia (01/01/20) Abnormal posture (01/01/20) Physical Therapy Treatment Note PT-OP-A Visit Information Start: 11/13/19 08:51 Freq: Status: Active Protocol: Document 01/01/20 13:46 AW (Rec: 01/01/20 13:47 AW [email or web address]) Out-Patient Physical Therapy Visit Information Visit Information Visit Type Treatment Note Visit Start Time 13:00 Visit Stop Time 13:45 Total Visit Minutes 45 Visit Number 11 Number of CUT OFF OPERATOR SCORER Visits 0 PT-OP-B Current Condition Start: 11/13/19 08:51 Freq: Status: Active Protocol: Document 11/13/19 12:17 AW (Rec: 11/13/19 13:05 AW [email or web address]) Current Condition History of Current Condition Onset Date 1 year Current Complaints neck pain History of Current Condition Tali has a history of a fib diagnosed in the last few years and a fall resulting in ankle fracture one year ago. Prior to her fall, she was ambulatory with 4WW. She was NWB RLE after the fracture and never fully recovered her mobility. She now uses a manual wheelchair for most mobility. She lives at [facility] and receives med assist as well as standby assist with showers. Tali states she typically uses her legs to propel the wheelchair with the foot rests removed. She is also capable of self- propelling with her arms which she does ~25% of the time. Since transitioning to full- time wheelchair mobility, she has noticed increased neck pain which becomes so bad it makes her nauseous. She states her neck pain begins at the back of her head and can quickly become achy and sharp. Her pain tends to become worse as the day progresses unless she catches it early and gives herself a head massage. She states it usually helps to gently move her head side to side and up and down. Pt denies any head trauma, recent infection, bilateral upper extremity symptoms, or drop attacks. She reports left hip pain as well but agrees to focus this plan of care on her neck pain. 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 PT-OP-F Manual Assessment Start: 11/13/19 08:51 Freq: Status: Active Protocol: Document 11/13/19 12:17 AW (Rec: 11/13/19 13:05 AW [email or web address]) Manual Assessments Soft Tissue Assessment Soft Tissue Mobility Assessment Dense upper trapezius, bilateral cervical paraspinals , bilateral occipitals Joint Mobility Assessment Joint Mobility Assessment Good lateral movement C1-C7. Restricted PROM bilateral shoulders in flexion and abduction. PT-OP-H Neuro Start: 11/13/19 08:51 Freq: Status: Active Protocol: Document 11/13/19 12:17 AW (Rec: 11/13/19 13:05 AW [email or web address]) Sensation Evaluation Gross Sensation Gross Sensation WNL PT-OP-J Posture/Palpation/Skin Start: 11/13/19 08:51 Freq: Status: Active Protocol: Document 11/13/19 12:17 AW (Rec: 11/13/19 13:05 AW [email or web address]) Posture Evaluation Position Sitting Evaluation View Lateral Head/C-Spine Posture Extended,Forward Head T-Spine Posture Increased Kyphosis Shoulder Posture (L) Rounded,(R) Rounded,(L) Forward,(R) Forward Scapula Posture (L) Protracted,(R) Protracted Weight Distribution Balanced PT-OP-K Range of Motion Start: 11/13/19 08:51 Freq: Status: Active Protocol: Document 11/13/19 12:17 AW (Rec: 11/13/19 13:05 AW [email or web address]) Cervical Spine Range of Motion Cervical Spine Active Degrees Testing Position Sitting Flexion 60 Extension 20 Rotation Left 35 Rotation Right 45 Lateral Flexion Left 20 Lateral Flexion Right 20 ROM Limitations Soft Tissue Tightness Comments Reduced left rotation Shoulder Goniometric Range of Motion Shoulder Left Active Testing Position Sitting Flexion 130 Abduction 140 Shoulder ROM Limitations Shoulder ROM Limitations Soft Tissue Tightness Comments R AROM consistent with left. PROM also restricted bilaterally Elbow/Forearm Range of Motion Elbow/Forearm ROM Limitations Comments Bilat elbow ROM WNL PT-OP-L Special Tests Start: 11/13/19 08:51 Freq: Status: Active Protocol: Document 11/13/19 12:17 AW (Rec: 11/13/19 13:05 AW [email or web address]) Special Tests Cervical Spine Special Tests Alar Ligament Test Results intact Spurling's Test Test Results negative bilaterally Comments with cervical retraction PT-OP-M Strength Start: 11/13/19 08:51 Freq: Status: Active Protocol: Document 11/13/19 12:17 AW (Rec: 11/13/19 13:05 AW [email or web address]) Cervical Spine Strength Cervical Spine Manual Muscle Testing Testing Position Sitting Flexion (C1-2) 4+ Good+ Extension 4+ Good+ Rotation Left 4+ Good+ Rotation Right 4+ Good+ Lateral Flexion Left (C3) 4 Good Lateral Flexion Right (C3) 4 Good Scapula Strength Scapula Manual Muscle Testing Left Elevation (C4) 4+ Good+ Adduction 4- Good- Abduction 4 Good Depression 4 Good Comments Right consistent with left Shoulder Strength Shoulder Manual Muscle Testing Left Flexion 4 Good Extension 4 Good Abduction (C5) 4 Good External Rotation 4 Good Internal Rotation 4+ Good+ Comments Right consistent with left PT-OP-Q Treatments Start: 11/13/19 08:51 Freq: Status: Active Protocol: Document 01/01/20 13:46 AW (Rec: 01/01/20 16:17 AW [email or web address]) Therapeutic Exercises Sitting Exercises hip adduction Sitting Exercise Name hip adduction Side bilateral Equipment Used blue ball Reps/Minutes 10 reps x 2 hip abduction Sitting Exercise Name hip abduction Side bilateral Resistance level 2 Equipment Used TB Reps/Minutes 10 reps x 2 chest press Sitting Exercise Name chest press Side bilateral Resistance level 2 Equipment Used TB Reps/Minutes 10 reps GH extension Sitting Exercise Name GH extension Side bilateral Resistance level 2 Equipment Used TB Reps/Minutes 10 reps HS stretch Sitting Exercise Name HS stretch Side bilateral Reps/Minutes 30 sec x 4 BLE Comments with active ankle ROM resisted horizontal abduction Sitting Exercise Name resisted horizontal abduction Side bilateral Resistance level 2 Equipment Used TB Reps/Minutes 10 reps x 2 pressure relief Sitting Exercise Name pressure relief Side bilateral Reps/Minutes 5 sec hold x 10, 2 sets Comments hands on propulsion rims isometric lat dorsi Sitting Exercise Name isometric lat dorsi Side bilateral Equipment Used O2 [employer] Reps/Minutes 3 sec hold x 10 reps Comments cued shoulder depression GH ER with resistance Sitting Exercise Name GH ER with resistance Resistance level 2 Equipment Used TB Reps/Minutes 10 reps x 2 Comments cued elbows tucked to sides, slow controlled movement, relaxed shoulders Standing Exercises sit to stand Standing Exercise Name partial sit to stand Equipment Used w/c Reps/Minutes 10 reps x 2 Comments focus on weight transfer to feet with pelvis lift off Manual Therapy Treatment Soft Tissue Mobilization cervical paraspinals and suboccipitals Body Location suboccipitals Mobilization Type Strumming,Trigger Point Release Intensity/Depth Moderate Body Position Sitting Comments with active rotation and contract/relax for rotation ( more limited to the left) STM bilateral upper traps Body Location upper traps Mobilization Type Myofascial Release,Sustained Pressure,Trigger Point Release Intensity/Depth Moderate Body Position Hooklying PT-OP-T Assessment and Plan Start: 11/13/19 08:51 Freq: Status: Active Protocol: Document 01/01/20 13:46 AW (Rec: 01/01/20 16:17 AW [email or web address]) Physical Therapy Assessment Goals Four Impairment sleep Short Term Goal (STG) Pt will improve sleep hygiene and positioning to report increase in undisturbed sleep. STG Duration 12/18/2019 Merchandise Buyer Goal (LTG) Pt will sleep 7 undisturbed hours for 3/7 nights. LTG Duration 01/22/2020 Three Impairment Pt scores 37/50 on NDI Intermediate Goal (LTG) Pt will score 27/50 or less on NDI to indicate improved daily function LTG Duration 01/22/2020 Two Impairment shoulder ROM Merchandise Buyer Goal (LTG) Pt will improve bilateral shoulder active flexion to 135 degrees for improved ability to perform ADL's LTG Duration 01/22/2020 One Impairment Pt has no exercise program Short Term Goal (STG) Pt will be independent with HEP for support of therapy services provided in clinic STG Duration 12/18/2019 Merchandise Buyer Goal (LTG) Pt will be independent with maintenance HEP LTG Duration 01/22/20 Assessment Summary Assessment Continuing to treat cervical spine to decrease pain which has been effective. Also continuing to address lower extremity complaints related to limited mobility and wheelchair dependence. Pt is progressing with postural awareness but will benefit from continued therapy to address lower extremity tightness and pain. Physical Therapy Plan Frequency and Duration Frequency of Treatment 2x/Week Duration of Treatment 10 weeks Plan of Care Start Date 11/13/19 Plan of Care End Date 01/22/20 Therapeutic Interventions Therapeutic Interventions Home Exercise Program,Joint Mobilizations,Manual Therapy, Neuromuscular Re-education, Patient/Caregiver Education, Self-Care/Home Management,Soft Tissue Mobilization, Therapeutic Activities, Therapeutic Exercises Next Visit Focus/Plan Next Note Type Treatment Note Next Visit Plan assess response to last tx: postural strengthening, biodex and cervical flexibility and transfers SPT. Continue Progress sit to stand strengthening for stability during transfers and decreased upper body WB and pressure on CS.
--- NOTE | 2020-01-03 08:28 | PT-OP ANOTE ---
Pt called same day to cancel appt, not feeling well. Next appt with PT 01/07.
--- NOTE | 2020-01-10 11:20 | PT.OTN ---
Current Diagnoses Cervicalgia (01/10/20) Abnormal posture (01/10/20) Physical Therapy Treatment Note PT-OP-A Visit Information Start: 11/13/19 08:51 Freq: Status: Active Protocol: Document 01/10/20 10:31 SP (Rec: 01/10/20 11:32 SP [id number]) Out-Patient Physical Therapy Visit Information Visit Information Visit Type Treatment Note Visit Start Time 10:30 Visit Stop Time 11:20 Total Visit Minutes 50 Visit Number 12 Number of CERTIFIED MEDICAL TECHNICIAN ASSISTANT Visits 1 PT-OP-B Current Condition Start: 11/13/19 08:51 Freq: Status: Active Protocol: Document 11/13/19 12:17 AW (Rec: 11/13/19 13:05 AW [email or web address]) Current Condition History of Current Condition Onset Date 1 year Current Complaints neck pain History of Current Condition Tali has a history of a fib diagnosed in the last few years and a fall resulting in ankle fracture one year ago. Prior to her fall, she was ambulatory with 4WW. She was NWB RLE after the fracture and never fully recovered her mobility. She now uses a manual wheelchair for most mobility. She lives at [facility] and receives med assist as well as standby assist with showers. Tali states she typically uses her legs to propel the wheelchair with the foot rests removed. She is also capable of self- propelling with her arms which she does ~25% of the time. Since transitioning to full- time wheelchair mobility, she has noticed increased neck pain which becomes so bad it makes her nauseous. She states her neck pain begins at the back of her head and can quickly become achy and sharp. Her pain tends to become worse as the day progresses unless she catches it early and gives herself a head massage. She states it usually helps to gently move her head side to side and up and down. Pt denies any head trauma, recent infection, bilateral upper extremity symptoms, or drop attacks. She reports left hip pain as well but agrees to focus this plan of care on her neck pain. 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 Usually has most of her pain in posterior neck and head and legs. T PT-OP-F Manual Assessment Start: 11/13/19 08:51 Freq: Status: Active Protocol: Document 11/13/19 12:17 AW (Rec: 11/13/19 13:05 AW [email or web address]) Manual Assessments Soft Tissue Assessment Soft Tissue Mobility Assessment Dense upper trapezius, bilateral cervical paraspinals , bilateral occipitals Joint Mobility Assessment Joint Mobility Assessment Good lateral movement C1-C7. Restricted PROM bilateral shoulders in flexion and abduction. PT-OP-H Neuro Start: 11/13/19 08:51 Freq: Status: Active Protocol: Document 11/13/19 12:17 AW (Rec: 11/13/19 13:05 AW [email or web address]) Sensation Evaluation Gross Sensation Gross Sensation WNL PT-OP-J Posture/Palpation/Skin Start: 11/13/19 08:51 Freq: Status: Active Protocol: Document 11/13/19 12:17 AW (Rec: 11/13/19 13:05 AW [email or web address]) Posture Evaluation Position Sitting Evaluation View Lateral Head/C-Spine Posture Extended,Forward Head T-Spine Posture Increased Kyphosis Shoulder Posture (L) Rounded,(R) Rounded,(L) Forward,(R) Forward Scapula Posture (L) Protracted,(R) Protracted Weight Distribution Balanced PT-OP-K Range of Motion Start: 11/13/19 08:51 Freq: Status: Active Protocol: Document 11/13/19 12:17 AW (Rec: 11/13/19 13:05 AW [email or web address]) Cervical Spine Range of Motion Cervical Spine Active Degrees Testing Position Sitting Flexion 60 Extension 20 Rotation Left 35 Rotation Right 45 Lateral Flexion Left 20 Lateral Flexion Right 20 ROM Limitations Soft Tissue Tightness Comments Reduced left rotation Shoulder Goniometric Range of Motion Shoulder Left Active Testing Position Sitting Flexion 130 Abduction 140 Shoulder ROM Limitations Shoulder ROM Limitations Soft Tissue Tightness Comments R AROM consistent with left. PROM also restricted bilaterally Elbow/Forearm Range of Motion Elbow/Forearm ROM Limitations Comments Bilat elbow ROM WNL PT-OP-L Special Tests Start: 11/13/19 08:51 Freq: Status: Active Protocol: Document 11/13/19 12:17 AW (Rec: 11/13/19 13:05 AW [email or web address]) Special Tests Cervical Spine Special Tests Alar Ligament Test Results intact Spurling's Test Test Results negative bilaterally Comments with cervical retraction PT-OP-M Strength Start: 11/13/19 08:51 Freq: Status: Active Protocol: Document 11/13/19 12:17 AW (Rec: 11/13/19 13:05 AW [email or web address]) Cervical Spine Strength Cervical Spine Manual Muscle Testing Testing Position Sitting Flexion (C1-2) 4+ Good+ Extension 4+ Good+ Rotation Left 4+ Good+ Rotation Right 4+ Good+ Lateral Flexion Left (C3) 4 Good Lateral Flexion Right (C3) 4 Good Scapula Strength Scapula Manual Muscle Testing Left Elevation (C4) 4+ Good+ Adduction 4- Good- Abduction 4 Good Depression 4 Good Comments Right consistent with left Shoulder Strength Shoulder Manual Muscle Testing Left Flexion 4 Good Extension 4 Good Abduction (C5) 4 Good External Rotation 4 Good Internal Rotation 4+ Good+ Comments Right consistent with left PT-OP-Q Treatments Start: 11/13/19 08:51 Freq: Status: Active Protocol: Document 01/10/20 10:31 SP (Rec: 01/10/20 11:32 SP [id number]) Therapeutic Exercises Supine Exercises cs lengthening w/ chin tuck Reps/Minutes 5 sec x5 Comments pillows under ischial tuberosity and knees for PPT and 2 pillows under head Sidelying Exercises open book Sidelying Exercise Name hand on head Side bilateral Resistance AROM Reps/Minutes x5 R and L Comments support for lower body stationary, cued head with arm movement naman range Sitting Exercises hip adduction Sitting Exercise Name hip adduction Side bilateral Equipment Used blue ball Reps/Minutes 12 reps x 2 Comments cued upright posture EO table hip abduction Sitting Exercise Name hip abduction Side bilateral Resistance level 2 Equipment Used TB Reps/Minutes 12 reps x 2 Comments cued upright posture EO tabley chest press Sitting Exercise Name chest press Side bilateral Resistance level 2 Equipment Used TB Reps/Minutes 10 reps Comments cued shoulder depression GH extension Sitting Exercise Name GH extension Side bilateral Resistance level 2 Equipment Used TB Reps/Minutes 10 reps Comments cued shoulder depression cervical rotation Sitting Exercise Name AROM and little over pressure stretch Side bilateral Reps/Minutes 20 sec hold x3 Comments cued don't perform to hard over pressure isometric lat dorsi Sitting Exercise Name isometric lat dorsi Side bilateral Equipment Used trekking poles Reps/Minutes 5 sec hold x 10 reps Comments cued shoulder depression scapular retraction Sitting Exercise Name scapular retraction Side bilateral Reps/Minutes 5 reps x 2 with 5 sec hold Comments tactile facilitation and cues: chest trunk lift cervical retraction Sitting Exercise Name cervical retraction w/chin nod Reps/Minutes 10 reps Comments cued for cs ext w/head nod vs cervical flexion Therapeutic Activity Therapeutic Activity SPT, supine<>sitting Name SPT Reps/Minutes 2 reps Comments w/c <> mat x 2 with FWW and CG - Min A x 1, cued full pivot with BUE while forward UE self support, Min A for rolling fully onto side for open book. Manual Therapy Treatment Soft Tissue Mobilization cervical paraspinals and suboccipitals Body Location suboccipitals, SCM, sub mandible mm. Mobilization Type Strumming,Trigger Point Release Intensity/Depth Superficial Body Position Hooklying Comments with active rotation and contract/relax for rotation ( more limited to the left) STM bilateral upper traps Body Location upper traps Mobilization Type Myofascial Release,Sustained Pressure,Trigger Point Release Intensity/Depth Moderate Body Position Hooklying PT-OP-T Assessment and Plan Start: 11/13/19 08:51 Freq: Status: Active Protocol: Document 01/10/20 10:31 SP (Rec: 01/10/20 11:32 SP [id number]) Physical Therapy Assessment Goals Four Impairment sleep Short Term Goal (STG) Pt will improve sleep hygiene and positioning to report increase in undisturbed sleep. STG Duration 12/18/2019 Senior Care Goal (LTG) Pt will sleep 7 undisturbed hours for 3/7 nights. LTG Duration 01/22/2020 Three Impairment Pt scores 37/50 on NDI Senior Care Goal (LTG) Pt will score 27/50 or less on NDI to indicate improved daily function LTG Duration 01/22/2020 Two Impairment shoulder ROM Electronic Controls Repairer Supervisor Goal (LTG) Pt will improve bilateral shoulder active flexion to 135 degrees for improved ability to perform ADL's LTG Duration 01/22/2020 One Impairment Pt has no exercise program Short Term Goal (STG) Pt will be independent with HEP for support of therapy services provided in clinic STG Duration 12/18/2019 Senior Care Goal (LTG) Pt will be independent with maintenance HEP LTG Duration 01/22/20 Assessment Summary Assessment Pt tolerated tx well, continuing to treat CS to decrease pain, effective. Cued for upright posture (elevated ribcage) and scap depression stabilization during sitting exercises for proper Ue exercises and noted decreased neck tension. Reviewed Le exercises as last tx to assist with LE pain complaints with report of that helps make my legs feel better. Physical Therapy Plan Frequency and Duration Frequency of Treatment 2x/Week Duration of Treatment 10 weeks Plan of Care Start Date 11/13/19 Plan of Care End Date 01/22/20 Therapeutic Interventions Therapeutic Interventions Home Exercise Program,Joint Mobilizations,Manual Therapy, Neuromuscular Re-education, Patient/Caregiver Education, Self-Care/Home Management,Soft Tissue Mobilization, Therapeutic Activities, Therapeutic Exercises Next Visit Focus/Plan Next Note Type Treatment Note Next Visit Plan assess response to last tx: postural strengtheningand cervical flexibility and transfers SPT. Continue Progress sit to stand strengthening for stability during transfers and decreased upper body WB and pressure on CS.
--- NOTE | 2020-01-17 11:15 | PT.OTN ---
Current Diagnoses Cervicalgia (01/17/20) Abnormal posture (01/17/20) Physical Therapy Treatment Note PT-OP-A Visit Information Start: 11/13/19 08:51 Freq: Status: Active Protocol: Document 01/17/20 10:32 SP (Rec: 01/17/20 11:39 SP [id number]) Out-Patient Physical Therapy Visit Information Visit Information Visit Type Treatment Note Visit Start Time 10:32 Visit Stop Time 11:15 Total Visit Minutes 43 Visit Number 13 Number of DINKEY DRIVER Visits 2 PT-OP-B Current Condition Start: 11/13/19 08:51 Freq: Status: Active Protocol: Document 11/13/19 12:17 AW (Rec: 11/13/19 13:05 AW [email or web address]) Current Condition History of Current Condition Onset Date 1 year Current Complaints neck pain History of Current Condition Tali has a history of a fib diagnosed in the last few years and a fall resulting in ankle fracture one year ago. Prior to her fall, she was ambulatory with 4WW. She was NWB RLE after the fracture and never fully recovered her mobility. She now uses a manual wheelchair for most mobility. She lives at [facility] and receives med assist as well as standby assist with showers. Tali states she typically uses her legs to propel the wheelchair with the foot rests removed. She is also capable of self- propelling with her arms which she does ~25% of the time. Since transitioning to full- time wheelchair mobility, she has noticed increased neck pain which becomes so bad it makes her nauseous. She states her neck pain begins at the back of her head and can quickly become achy and sharp. Her pain tends to become worse as the day progresses unless she catches it early and gives herself a head massage. She states it usually helps to gently move her head side to side and up and down. Pt denies any head trauma, recent infection, bilateral upper extremity symptoms, or drop attacks. She reports left hip pain as well but agrees to focus this plan of care on her neck pain. 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 PT-OP-F Manual Assessment Start: 11/13/19 08:51 Freq: Status: Active Protocol: Document 11/13/19 12:17 AW (Rec: 11/13/19 13:05 AW [email or web address]) Manual Assessments Soft Tissue Assessment Soft Tissue Mobility Assessment Dense upper trapezius, bilateral cervical paraspinals , bilateral occipitals Joint Mobility Assessment Joint Mobility Assessment Good lateral movement C1-C7. Restricted PROM bilateral shoulders in flexion and abduction. PT-OP-H Neuro Start: 11/13/19 08:51 Freq: Status: Active Protocol: Document 11/13/19 12:17 AW (Rec: 11/13/19 13:05 AW [email or web address]) Sensation Evaluation Gross Sensation Gross Sensation WNL PT-OP-J Posture/Palpation/Skin Start: 11/13/19 08:51 Freq: Status: Active Protocol: Document 11/13/19 12:17 AW (Rec: 11/13/19 13:05 AW [email or web address]) Posture Evaluation Position Sitting Evaluation View Lateral Head/C-Spine Posture Extended,Forward Head T-Spine Posture Increased Kyphosis Shoulder Posture (L) Rounded,(R) Rounded,(L) Forward,(R) Forward Scapula Posture (L) Protracted,(R) Protracted Weight Distribution Balanced PT-OP-K Range of Motion Start: 11/13/19 08:51 Freq: Status: Active Protocol: Document 11/13/19 12:17 AW (Rec: 11/13/19 13:05 AW [email or web address]) Cervical Spine Range of Motion Cervical Spine Active Degrees Testing Position Sitting Flexion 60 Extension 20 Rotation Left 35 Rotation Right 45 Lateral Flexion Left 20 Lateral Flexion Right 20 ROM Limitations Soft Tissue Tightness Comments Reduced left rotation Shoulder Goniometric Range of Motion Shoulder Left Active Testing Position Sitting Flexion 130 Abduction 140 Shoulder ROM Limitations Shoulder ROM Limitations Soft Tissue Tightness Comments R AROM consistent with left. PROM also restricted bilaterally Elbow/Forearm Range of Motion Elbow/Forearm ROM Limitations Comments Bilat elbow ROM WNL PT-OP-L Special Tests Start: 11/13/19 08:51 Freq: Status: Active Protocol: Document 11/13/19 12:17 AW (Rec: 11/13/19 13:05 AW [email or web address]) Special Tests Cervical Spine Special Tests Alar Ligament Test Results intact Spurling's Test Test Results negative bilaterally Comments with cervical retraction PT-OP-M Strength Start: 11/13/19 08:51 Freq: Status: Active Protocol: Document 11/13/19 12:17 AW (Rec: 11/13/19 13:05 AW [email or web address]) Cervical Spine Strength Cervical Spine Manual Muscle Testing Testing Position Sitting Flexion (C1-2) 4+ Good+ Extension 4+ Good+ Rotation Left 4+ Good+ Rotation Right 4+ Good+ Lateral Flexion Left (C3) 4 Good Lateral Flexion Right (C3) 4 Good Scapula Strength Scapula Manual Muscle Testing Left Elevation (C4) 4+ Good+ Adduction 4- Good- Abduction 4 Good Depression 4 Good Comments Right consistent with left Shoulder Strength Shoulder Manual Muscle Testing Left Flexion 4 Good Extension 4 Good Abduction (C5) 4 Good External Rotation 4 Good Internal Rotation 4+ Good+ Comments Right consistent with left PT-OP-Q Treatments Start: 11/13/19 08:51 Freq: Status: Active Protocol: Document 01/17/20 10:32 SP (Rec: 01/17/20 11:39 SP [id number]) Therapeutic Exercises Sitting Exercises hip adduction Sitting Exercise Name hip adduction Side bilateral Equipment Used blue ball Reps/Minutes 12 reps x 2 Comments cued upright posture EO table hip abduction Sitting Exercise Name hip abduction Side bilateral Resistance level 2 Equipment Used TB Reps/Minutes 12 reps x 2 Comments cued upright posture EO tabley cervical rotation Sitting Exercise Name AROM and little over pressure stretch Side bilateral Reps/Minutes 20 sec hold x3 Comments cued don't perform to hard over pressure isometric lat dorsi Sitting Exercise Name isometric lat dorsi Side bilateral Equipment Used trekking poles Reps/Minutes 5 sec hold x 10 reps Comments cued shoulder depression resisted row Sitting Exercise Name resisted row Side bilateral Resistance level 1 Equipment Used TB Reps/Minutes 2x10 Comments cued CS and chest elevation, scap dep/retraction cervical retraction Sitting Exercise Name cervical retraction w/chin nod Reps/Minutes 10 reps Comments cued for cs ext w/head nod vs cervical flexion upper traps stretch Sitting Exercise Name upper traps stretch (side bend ) Side bilateral Resistance self and little self over pressure stretch Reps/Minutes 20 sec Standing Exercises sit to stand Standing Exercise Name sit to stand Equipment Used FWW Reps/Minutes x5 reps Comments focus on weight transfer to B LE, full upright can Therapeutic Activity Therapeutic Activity SPT, supine<>sitting Name SPT Reps/Minutes 2 reps Comments w/c <> mat table and CGA, cued full pivot back to chair with RLE while BUE WB on foward surface to control descent. Manual Therapy Treatment Soft Tissue Mobilization cervical paraspinals and suboccipitals Body Location suboccipitals, SCM, sub mandible mm. Mobilization Type Strumming,Trigger Point Release Intensity/Depth Superficial Body Position Hooklying Comments with active rotation and contract/relax for rotation ( more limited to the left) STM bilateral upper traps Body Location upper traps Mobilization Type Myofascial Release,Sustained Pressure,Trigger Point Release Intensity/Depth Moderate Body Position Hooklying PT-OP-T Assessment and Plan Start: 11/13/19 08:51 Freq: Status: Active Protocol: Document 01/17/20 10:32 SP (Rec: 01/17/20 11:39 SP [id number]) Physical Therapy Assessment Goals Four Impairment sleep Short Term Goal (STG) Pt will improve sleep hygiene and positioning to report increase in undisturbed sleep. STG Duration 12/18/2019 Motor Scooter Repairer Goal (LTG) Pt will sleep 7 undisturbed hours for 3/7 nights. LTG Duration 01/22/2020 Three Impairment Pt scores 37/50 on NDI Motor Scooter Repairer Goal (LTG) Pt will score 27/50 or less on NDI to indicate improved daily function LTG Duration 01/22/2020 Two Impairment shoulder ROM Senior Living Goal (LTG) Pt will improve bilateral shoulder active flexion to 135 degrees for improved ability to perform ADL's LTG Duration 01/22/2020 One Impairment Pt has no exercise program Short Term Goal (STG) Pt will be independent with HEP for support of therapy services provided in clinic STG Duration 12/18/2019 Senior Living Goal (LTG) Pt will be independent with maintenance HEP LTG Duration 01/22/20 Assessment Summary Assessment Focused on cervical spine to decreased pain mainly L, manual effective. Pt requires cuing for CS retraction to neutral and scap depression/ chest elevation during therex seated unsupported at EOTable to decreased neck musculature recruitment. Incorporated LE ther ex per PT directioning to address LE complaints and improve strength for transfers in/out w/c. Incorporated FWW sit to stands with cuing for BUE push from seated w/ hip hinge to stand and upright posture to allow improvement alignment in CS, trunk to allow for LE foot clearance pivoting stabilization. Physical Therapy Plan Frequency and Duration Frequency of Treatment 2x/Week Duration of Treatment 10 weeks Plan of Care Start Date 11/13/19 Plan of Care End Date 01/22/20 Therapeutic Interventions Therapeutic Interventions Home Exercise Program,Joint Mobilizations,Manual Therapy, Neuromuscular Re-education, Patient/Caregiver Education, Self-Care/Home Management,Soft Tissue Mobilization, Therapeutic Activities, Therapeutic Exercises Next Visit Focus/Plan Next Note Type Treatment Note Next Visit Plan assess response to last tx: postural strengthening and cervical flexibility and transfers SPT. Continue Progress sit to stand strengthening for stability during transfers and decreased upper body WB and pressure on CS.
--- NOTE | 2020-02-05 12:20 | PT.OTN ---
Current Diagnoses Cervicalgia (02/05/20) Abnormal posture (02/05/20) Physical Therapy Treatment Note PT-OP-A Visit Information Start: 11/13/19 08:51 Freq: Status: Active Protocol: Document 02/05/20 09:12 AW (Rec: 02/05/20 12:19 AW [id number]) Out-Patient Physical Therapy Visit Information Visit Information Visit Type Progress Note Visit Note Original plan of care ended . Pt was unable to attend last few appointments due to illness. Visit Start Time 09:45 Visit Number 14 Number of BUSINESS SERVICES REPRESENTATIVE Visits 0 Evaluation Information Evaluation Date 11/13/19 PT-OP-B Current Condition Start: 11/13/19 08:51 Freq: Status: Active Protocol: Document 11/13/19 12:17 AW (Rec: 11/13/19 13:05 AW [email or web address]) Current Condition History of Current Condition Onset Date 1 year Current Complaints neck pain History of Current Condition Tali has a history of a fib diagnosed in the last few years and a fall resulting in ankle fracture one year ago. Prior to her fall, she was ambulatory with 4WW. She was NWB RLE after the fracture and never fully recovered her mobility. She now uses a manual wheelchair for most mobility. She lives at [facility] and receives med assist as well as standby assist with showers. Tali states she typically uses her legs to propel the wheelchair with the foot rests removed. She is also capable of self- propelling with her arms which she does ~25% of the time. Since transitioning to full- time wheelchair mobility, she has noticed increased neck pain which becomes so bad it makes her nauseous. She states her neck pain begins at the back of her head and can quickly become achy and sharp. Her pain tends to become worse as the day progresses unless she catches it early and gives herself a head massage. She states it usually helps to gently move her head side to side and up and down. Pt denies any head trauma, recent infection, bilateral upper extremity symptoms, or drop attacks. She reports left hip pain as well but agrees to focus this plan of care on her neck pain. 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 She has scattered scabs visible on both cheeks near her ears. She has not discussed this with her doctor and has not been assessed by nursing at her facility. Patient Questionnaires Neck Disability Index NDI Score 26 Neck Disability Index Impairment 40 to 59% Impaired (Score 20- 29) PT-OP-F Manual Assessment Start: 11/13/19 08:51 Freq: Status: Active Protocol: Document 11/13/19 12:17 AW (Rec: 11/13/19 13:05 AW [email or web address]) Manual Assessments Soft Tissue Assessment Soft Tissue Mobility Assessment Dense upper trapezius, bilateral cervical paraspinals , bilateral occipitals Joint Mobility Assessment Joint Mobility Assessment Good lateral movement C1-C7. Restricted PROM bilateral shoulders in flexion and abduction. PT-OP-H Neuro Start: 11/13/19 08:51 Freq: Status: Active Protocol: Document 11/13/19 12:17 AW (Rec: 11/13/19 13:05 AW [email or web address]) Sensation Evaluation Gross Sensation Gross Sensation WNL PT-OP-J Posture/Palpation/Skin Start: 11/13/19 08:51 Freq: Status: Active Protocol: Document 11/13/19 12:17 AW (Rec: 11/13/19 13:05 AW [email or web address]) Posture Evaluation Position Sitting Evaluation View Lateral Head/C-Spine Posture Extended,Forward Head T-Spine Posture Increased Kyphosis Shoulder Posture (L) Rounded,(R) Rounded,(L) Forward,(R) Forward Scapula Posture (L) Protracted,(R) Protracted Weight Distribution Balanced PT-OP-K Range of Motion Start: 11/13/19 08:51 Freq: Status: Active Protocol: Document 02/05/20 09:12 AW (Rec: 02/05/20 12:19 AW [id number]) Cervical Spine Range of Motion Cervical Spine Active Degrees Testing Position Sitting Flexion 27 Extension 31 Comments Limitation in B lateral flexion. Rotation more limited to the left Shoulder Goniometric Range of Motion Shoulder Left Active Flexion 126 Comments R 128 Elbow/Forearm Range of Motion Elbow/Forearm ROM Limitations Comments Bilat elbow ROM WNL PT-OP-L Special Tests Start: 11/13/19 08:51 Freq: Status: Active Protocol: Document 02/05/20 09:12 AW (Rec: 02/05/20 12:19 AW [id number]) Special Tests Cervical Spine Special Tests Spurling's Test Test Results negative bilaterally Comments with cervical retraction PT-OP-M Strength Start: 11/13/19 08:51 Freq: Status: Active Protocol: Document 02/05/20 09:12 AW (Rec: 02/05/20 12:19 AW [id number]) Cervical Spine Strength Cervical Spine Manual Muscle Testing Testing Position Sitting Flexion (C1-2) 4+ Good+ Extension 4+ Good+ Rotation Left 4+ Good+ Rotation Right 4+ Good+ Lateral Flexion Left (C3) 4 Good Lateral Flexion Right (C3) 4 Good Scapula Strength Scapula Manual Muscle Testing Left Elevation (C4) 4+ Good+ Adduction 4- Good- Abduction 4 Good Depression 4 Good Comments Right consistent with left Shoulder Strength Shoulder Manual Muscle Testing Left Flexion 4 Good Abduction (C5) 4 Good External Rotation 4+ Good+ Internal Rotation 4+ Good+ PT-OP-Q Treatments Start: 11/13/19 08:51 Freq: Status: Active Protocol: Document 02/05/20 09:12 AW (Rec: 02/05/20 12:19 AW [id number]) Therapeutic Exercises Supine Exercises deep neck flexor training Supine Exercise Name deep neck flexor training Reps/Minutes 5-8 sec hold x 8 Comments chin tuck + liftoff from pillow; pt fatigues ~5 sec Sitting Exercises cervical rotation Sitting Exercise Name AROM and little over pressure stretch Side bilateral Reps/Minutes 20 sec hold x3 Comments cued don't perform to hard over pressure resisted row Sitting Exercise Name resisted row Side bilateral Resistance level 1 Equipment Used TB Reps/Minutes 2x10 Comments cued CS and chest elevation, scap dep/retraction cervical retraction Sitting Exercise Name cervical retraction w/chin nod Reps/Minutes 10 reps Comments cued for cs ext w/head nod vs cervical flexion upper traps stretch Sitting Exercise Name upper traps stretch (side bend ) Side bilateral Resistance self and little self over pressure stretch Reps/Minutes 20 sec Standing Exercises sit to stand Standing Exercise Name sit to stand Equipment Used FWW Reps/Minutes x3 reps Comments focus on weight transfer to B LE, hip extension Therapeutic Activity Therapeutic Activity SPT, supine<>sitting Name SPT Reps/Minutes 2 reps Comments w/c <> mat table and CGA with FWW for 90 degree pivot Manual Therapy Treatment Soft Tissue Mobilization cervical paraspinals and suboccipitals Body Location suboccipitals, SCM, sub mandible mm. Mobilization Type Strumming,Trigger Point Release Intensity/Depth Superficial Body Position Hooklying Comments with active rotation and contract/relax for rotation ( more limited to the left) STM bilateral upper traps Body Location upper traps Mobilization Type Myofascial Release,Sustained Pressure,Trigger Point Release Intensity/Depth Moderate Body Position Hooklying PT-OP-T Assessment and Plan Start: 11/13/19 08:51 Freq: Status: Active Protocol: Document 02/05/20 09:12 AW (Rec: 02/05/20 12:19 AW [id number]) Physical Therapy Assessment Rehab Potential Rehabilitation Potential Good Impairments Impairments Functional Activities, Functional Mobility,Pain, Posture,ROM,Sensation,Soft Tissue Mobility,Strength Other Concerns Fall Risk high Goals Four Impairment sleep Short Term Goal (STG) Pt will improve sleep hygiene and positioning to report increase in undisturbed sleep. STG Duration 12/18/2019 Fdc Goal (LTG) Pt will sleep 7 undisturbed hours for 3/7 nights. 02/05/20 - PROGRESSING LTG Duration 04/01/2020 Three Impairment Pt scores 37/50 on NDI Fdc Goal (LTG) Pt will score 27/50 or less on NDI to indicate improved daily function PROGRESSING - 26/50 on New goal: Pt to score 20/50 or less on NDI for improved daily function LTG Duration 04/01/2020 Two Impairment shoulder ROM Fdc Goal (LTG) Pt will improve bilateral shoulder active flexion to 135 degrees for improved ability to perform ADL's NOT MET: AROM remains ~126-128 bilaterally LTG Duration 03/26/2020 One Impairment Pt has no exercise program Short Term Goal (STG) Pt will be independent with HEP for support of therapy services provided in clinic STG Duration 12/18/2019 Fdc Goal (LTG) Pt will be independent with maintenance HEP LTG Duration 04/01/2020 Progress Towards Goals Progress Towards Goals Progressing Toward Goals Progress Comments Pt is progressing with pain- free range of motion but continues with limitation in cervical and glenohumeral range. Habitual postures and excessive time spent in wheelchair are perpetuating her symptoms but objective measure (NDI) does show improvement. Assessment Summary Assessment Primary focus on manual therapy and reassessment for goal-setting today. Pt has made progress with neck pain but continues to show decreased cervical and shoulder range of motion. Continue per plan of care with focus on range of motion and postural awareness to address aberrant postures contributing to pain. Physical Therapy Plan Frequency and Duration Frequency of Treatment 2x/Week Duration of Treatment 8 weeks Plan of Care Start Date 02/05/20 Plan of Care End Date 04/01/20 Therapeutic Interventions Therapeutic Interventions Home Exercise Program,Joint Mobilizations,Manual Therapy, Neuromuscular Re-education, Patient/Caregiver Education, Self-Care/Home Management,Soft Tissue Mobilization, Therapeutic Activities, Therapeutic Exercises Next Visit Focus/Plan Next Note Type Treatment Note Next Visit Plan assess response to last tx: postural strengthening and cervical flexibility and transfers SPT. Continue Progress sit to stand strengthening for stability during transfers and decreased upper body WB and pressure on CS.
--- NOTE | 2020-02-05 12:20 | PT.OPPOC ---
Physical, Occupational & Speech Therapy At [facility] Current Diagnoses Cervicalgia (02/05/20) Abnormal posture (02/05/20) Visit Care Team Role Provider Type Carissa Chen MD Attending Provider Physician Family Provider Primary Care Provider Referring Provider Specialty: Internal Medicine Address: [address] [place] [address], [id number] Email: [email or web address] Of Care PT-OP-T Assessment and Plan Start: 11/13/19 08:51 Freq: Status: Active Protocol: Document 02/05/20 09:12 AW (Rec: 02/05/20 12:19 AW [id number]) Physical Therapy Assessment Rehab Potential Rehabilitation Potential Good Impairments Impairments Functional Activities, Functional Mobility,Pain, Posture,ROM,Sensation,Soft Tissue Mobility,Strength Other Concerns Fall Risk high Goals Four Impairment sleep Short Term Goal (STG) Pt will improve sleep hygiene and positioning to report increase in undisturbed sleep. STG Duration 12/18/2019 Senior Living Goal (LTG) Pt will sleep 7 undisturbed hours for 3/7 nights. 02/05/20 - PROGRESSING LTG Duration 04/01/2020 Three Impairment Pt scores 37/50 on NDI Senior Living Goal (LTG) Pt will score 27/50 or less on NDI to indicate improved daily function PROGRESSING - 26/50 on New goal: Pt to score 20/50 or less on NDI for improved daily function LTG Duration 04/01/2020 Two Impairment shoulder ROM Summer Child Caregiver Goal (LTG) Pt will improve bilateral shoulder active flexion to 135 degrees for improved ability to perform ADL's NOT MET: AROM remains ~126-128 bilaterally LTG Duration 03/26/2020 One Impairment Pt has no exercise program Short Term Goal (STG) Pt will be independent with HEP for support of therapy services provided in clinic STG Duration 12/18/2019 Summer Child Caregiver Goal (LTG) Pt will be independent with maintenance HEP LTG Duration 04/01/2020 Progress Towards Goals Progress Towards Goals Progressing Toward Goals Progress Comments Pt is progressing with pain- free range of motion but continues with limitation in cervical and glenohumeral range. Habitual postures and excessive time spent in wheelchair are perpetuating her symptoms but objective measure (NDI) does show improvement. Assessment Summary Assessment Primary focus on manual therapy and reassessment for goal-setting today. Pt has made progress with neck pain but continues to show decreased cervical and shoulder range of motion. Continue per plan of care with focus on range of motion and postural awareness to address aberrant postures contributing to pain. Physical Therapy Plan Frequency and Duration Frequency of Treatment 2x/Week Duration of Treatment 8 weeks Plan of Care Start Date 02/05/20 Plan of Care End Date 04/01/20 Therapeutic Interventions Therapeutic Interventions Home Exercise Program,Joint Mobilizations,Manual Therapy, Neuromuscular Re-education, Patient/Caregiver Education, Self-Care/Home Management,Soft Tissue Mobilization, Therapeutic Activities, Therapeutic Exercises Next Visit Focus/Plan Next Note Type Treatment Note Next Visit Plan assess response to last tx: postural strengthening and cervical flexibility and transfers SPT. Continue Progress sit to stand strengthening for stability during transfers and decreased upper body WB and pressure on CS. Plan of Care Dates Plan of Care Start Date 02/05/20 Plan of Care End Date 04/01/20 Electronically Signed by: Alva Shannon, PT 02/05/20 2392 Please Sign and Return: I have reviewed this Plan of Care and certify that the skilled therapy services above are required to meet the patient?s needs. Physician Signature Date Printed Name and Credentials Clinical Instructor Signature Printed Name and Credentials
--- NOTE | 2020-02-07 11:15 | PT.OTN ---
Current Diagnoses Cervicalgia (02/07/20) Abnormal posture (02/07/20) Physical Therapy Treatment Note PT-OP-A Visit Information Start: 11/13/19 08:51 Freq: Status: Active Protocol: Document 02/07/20 10:32 SP (Rec: 02/07/20 11:29 SP [id number]) Out-Patient Physical Therapy Visit Information Visit Information Visit Type Treatment Note Visit Start Time 10:32 Visit Stop Time 11:15 Total Visit Minutes 43 Visit Number 15 Number of MANAGER AUDIO Visits 1 PT-OP-B Current Condition Start: 11/13/19 08:51 Freq: Status: Active Protocol: Document 11/13/19 12:17 AW (Rec: 11/13/19 13:05 AW [email or web address]) Current Condition History of Current Condition Onset Date 1 year Current Complaints neck pain History of Current Condition Tali has a history of a fib diagnosed in the last few years and a fall resulting in ankle fracture one year ago. Prior to her fall, she was ambulatory with 4WW. She was NWB RLE after the fracture and never fully recovered her mobility. She now uses a manual wheelchair for most mobility. She lives at [facility] and receives med assist as well as standby assist with showers. Tali states she typically uses her legs to propel the wheelchair with the foot rests removed. She is also capable of self- propelling with her arms which she does ~25% of the time. Since transitioning to full- time wheelchair mobility, she has noticed increased neck pain which becomes so bad it makes her nauseous. She states her neck pain begins at the back of her head and can quickly become achy and sharp. Her pain tends to become worse as the day progresses unless she catches it early and gives herself a head massage. She states it usually helps to gently move her head side to side and up and down. Pt denies any head trauma, recent infection, bilateral upper extremity symptoms, or drop attacks. She reports left hip pain as well but agrees to focus this plan of care on her neck pain. 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 I am not doing as much exercises as should at home. PT-OP-F Manual Assessment Start: 11/13/19 08:51 Freq: Status: Active Protocol: Document 11/13/19 12:17 AW (Rec: 11/13/19 13:05 AW [email or web address]) Manual Assessments Soft Tissue Assessment Soft Tissue Mobility Assessment Dense upper trapezius, bilateral cervical paraspinals , bilateral occipitals Joint Mobility Assessment Joint Mobility Assessment Good lateral movement C1-C7. Restricted PROM bilateral shoulders in flexion and abduction. PT-OP-H Neuro Start: 11/13/19 08:51 Freq: Status: Active Protocol: Document 11/13/19 12:17 AW (Rec: 11/13/19 13:05 AW [email or web address]) Sensation Evaluation Gross Sensation Gross Sensation WNL PT-OP-J Posture/Palpation/Skin Start: 11/13/19 08:51 Freq: Status: Active Protocol: Document 11/13/19 12:17 AW (Rec: 11/13/19 13:05 AW [email or web address]) Posture Evaluation Position Sitting Evaluation View Lateral Head/C-Spine Posture Extended,Forward Head T-Spine Posture Increased Kyphosis Shoulder Posture (L) Rounded,(R) Rounded,(L) Forward,(R) Forward Scapula Posture (L) Protracted,(R) Protracted Weight Distribution Balanced PT-OP-K Range of Motion Start: 11/13/19 08:51 Freq: Status: Active Protocol: Document 02/05/20 09:12 AW (Rec: 02/05/20 12:19 AW [id number]) Cervical Spine Range of Motion Cervical Spine Active Degrees Testing Position Sitting Flexion 27 Extension 31 Comments Limitation in B lateral flexion. Rotation more limited to the left Shoulder Goniometric Range of Motion Shoulder Left Active Flexion 126 Comments R 128 Elbow/Forearm Range of Motion Elbow/Forearm ROM Limitations Comments Bilat elbow ROM WNL PT-OP-L Special Tests Start: 11/13/19 08:51 Freq: Status: Active Protocol: Document 02/05/20 09:12 AW (Rec: 02/05/20 12:19 AW [id number]) Special Tests Cervical Spine Special Tests Spurling's Test Test Results negative bilaterally Comments with cervical retraction PT-OP-M Strength Start: 11/13/19 08:51 Freq: Status: Active Protocol: Document 02/05/20 09:12 AW (Rec: 02/05/20 12:19 AW [id number]) Cervical Spine Strength Cervical Spine Manual Muscle Testing Testing Position Sitting Flexion (C1-2) 4+ Good+ Extension 4+ Good+ Rotation Left 4+ Good+ Rotation Right 4+ Good+ Lateral Flexion Left (C3) 4 Good Lateral Flexion Right (C3) 4 Good Scapula Strength Scapula Manual Muscle Testing Left Elevation (C4) 4+ Good+ Adduction 4- Good- Abduction 4 Good Depression 4 Good Comments Right consistent with left Shoulder Strength Shoulder Manual Muscle Testing Left Flexion 4 Good Abduction (C5) 4 Good External Rotation 4+ Good+ Internal Rotation 4+ Good+ PT-OP-Q Treatments Start: 11/13/19 08:51 Freq: Status: Active Protocol: Document 02/07/20 10:32 SP (Rec: 02/07/20 11:29 SP [id number]) Therapeutic Exercises Supine Exercises deep neck flexor training Supine Exercise Name deep neck flexor training Equipment Used (1 pillow under head) Reps/Minutes 5-8 sec hold x 8 Comments chin tuck + liftoff from pillow; pt fatigues ~5 sec Sitting Exercises cervical rotation Sitting Exercise Name AROM and little over pressure stretch Side bilateral Reps/Minutes 20 sec hold Comments AROM hold stretch, cued up tall alignment isometric lat dorsi Sitting Exercise Name isometric lat dorsi Side bilateral Equipment Used XYDO Reps/Minutes 5 sec hold x 10 reps Comments cued shoulder depression resisted row Sitting Exercise Name resisted row Side bilateral Resistance level 1 Equipment Used TB Reps/Minutes 2x10 Comments cued CS and chest elevation, scap dep/retraction cervical retraction Sitting Exercise Name cervical retraction w/chin nod Reps/Minutes 5 sec hold x10 reps Comments cued for cs ext w/head nod vs cervical flexion upper traps stretch Sitting Exercise Name upper traps stretch (side bend ) Side bilateral Resistance self and little self over pressure stretch Reps/Minutes 20 sec Comments AROM hold stretch, cued up tall alignment Therapeutic Activity Therapeutic Activity SPT, supine<>sitting Name SPT Reps/Minutes 6 reps Comments w/c <> mat table pivot using BUE WB assist 90 deg turn, does best to L, educated R side step instead of 180 deg pivot for energy conservation and decrease risk fall if LE unstable, but works for her. Cued no flopping complete pivot and slow descent usign BUE. sitting<> supine S. Manual Therapy Treatment Soft Tissue Mobilization cervical paraspinals and suboccipitals Body Location suboccipitals, (not anterior neck due to open abrasions) Mobilization Type Strumming,Trigger Point Release Intensity/Depth Moderate Body Position Hooklying Comments with active rotation and contract/relax for rotation ( more limited to the left) STM bilateral upper traps Body Location upper traps Mobilization Type Myofascial Release,Sustained Pressure,Trigger Point Release Intensity/Depth Moderate Body Position Hooklying PT-OP-T Assessment and Plan Start: 11/13/19 08:51 Freq: Status: Active Protocol: Document 02/07/20 10:32 SP (Rec: 02/07/20 11:29 SP [id number]) Physical Therapy Assessment Goals Four Impairment sleep Short Term Goal (STG) Pt will improve sleep hygiene and positioning to report increase in undisturbed sleep. STG Duration 12/18/2019 Group Home Goal (LTG) Pt will sleep 7 undisturbed hours for 3/7 nights. 02/05/20 - PROGRESSING LTG Duration 04/01/2020 Three Impairment Pt scores 37/50 on NDI Group Home Goal (LTG) Pt will score 27/50 or less on NDI to indicate improved daily function PROGRESSING - 26/50 on New goal: Pt to score 20/50 or less on NDI for improved daily function LTG Duration 04/01/2020 Two Impairment shoulder ROM Group Home Goal (LTG) Pt will improve bilateral shoulder active flexion to 135 degrees for improved ability to perform ADL's NOT MET: AROM remains ~126-128 bilaterally LTG Duration 03/26/2020 One Impairment Pt has no exercise program Short Term Goal (STG) Pt will be independent with HEP for support of therapy services provided in clinic STG Duration 12/18/2019 Planograph Operator Goal (LTG) Pt will be independent with maintenance HEP LTG Duration 04/01/2020 Assessment Summary Assessment Pt tolerated tx well, manual and review exercises for decrease tightness and soreness posterior neck with good response, feel looser then when I came in, the therapy does help me. I need to do more on own when having good days. Physical Therapy Plan Frequency and Duration Frequency of Treatment 2x/Week Duration of Treatment 8 weeks Plan of Care Start Date 02/05/20 Plan of Care End Date 04/01/20 Therapeutic Interventions Therapeutic Interventions Home Exercise Program,Joint Mobilizations,Manual Therapy, Neuromuscular Re-education, Patient/Caregiver Education, Self-Care/Home Management,Soft Tissue Mobilization, Therapeutic Activities, Therapeutic Exercises Next Visit Focus/Plan Next Note Type Treatment Note Next Visit Plan assess response to last tx: postural strengthening, cervical flexibility and transfers SPT. Continue Progress sit to stand strengthening for stability during transfers and decreased upper body WB and pressure on CS.
--- NOTE | 2020-02-12 11:48 | PT.OTN ---
Current Diagnoses Cervicalgia (02/12/20) Abnormal posture (02/12/20) Physical Therapy Treatment Note PT-OP-A Visit Information Start: 11/13/19 08:51 Freq: Status: Active Protocol: Document 02/12/20 11:39 AW (Rec: 02/12/20 11:48 AW [email or web address]) Out-Patient Physical Therapy Visit Information Visit Information Visit Type Treatment Note Visit Start Time 09:45 Visit Stop Time 10:29 Total Visit Minutes 44 Visit Number 16 Number of ASSEMBLER BRAZER Visits 0 PT-OP-B Current Condition Start: 11/13/19 08:51 Freq: Status: Active Protocol: Document 11/13/19 12:17 AW (Rec: 11/13/19 13:05 AW [email or web address]) Current Condition History of Current Condition Onset Date 1 year Current Complaints neck pain History of Current Condition Tali has a history of a fib diagnosed in the last few years and a fall resulting in ankle fracture one year ago. Prior to her fall, she was ambulatory with 4WW. She was NWB RLE after the fracture and never fully recovered her mobility. She now uses a manual wheelchair for most mobility. She lives at [facility] and receives med assist as well as standby assist with showers. Tali states she typically uses her legs to propel the wheelchair with the foot rests removed. She is also capable of self- propelling with her arms which she does ~25% of the time. Since transitioning to full- time wheelchair mobility, she has noticed increased neck pain which becomes so bad it makes her nauseous. She states her neck pain begins at the back of her head and can quickly become achy and sharp. Her pain tends to become worse as the day progresses unless she catches it early and gives herself a head massage. She states it usually helps to gently move her head side to side and up and down. Pt denies any head trauma, recent infection, bilateral upper extremity symptoms, or drop attacks. She reports left hip pain as well but agrees to focus this plan of care on her neck pain. 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 PT-OP-F Manual Assessment Start: 11/13/19 08:51 Freq: Status: Active Protocol: Document 11/13/19 12:17 AW (Rec: 11/13/19 13:05 AW [email or web address]) Manual Assessments Soft Tissue Assessment Soft Tissue Mobility Assessment Dense upper trapezius, bilateral cervical paraspinals , bilateral occipitals Joint Mobility Assessment Joint Mobility Assessment Good lateral movement C1-C7. Restricted PROM bilateral shoulders in flexion and abduction. PT-OP-H Neuro Start: 11/13/19 08:51 Freq: Status: Active Protocol: Document 11/13/19 12:17 AW (Rec: 11/13/19 13:05 AW [email or web address]) Sensation Evaluation Gross Sensation Gross Sensation WNL PT-OP-J Posture/Palpation/Skin Start: 11/13/19 08:51 Freq: Status: Active Protocol: Document 11/13/19 12:17 AW (Rec: 11/13/19 13:05 AW [email or web address]) Posture Evaluation Position Sitting Evaluation View Lateral Head/C-Spine Posture Extended,Forward Head T-Spine Posture Increased Kyphosis Shoulder Posture (L) Rounded,(R) Rounded,(L) Forward,(R) Forward Scapula Posture (L) Protracted,(R) Protracted Weight Distribution Balanced PT-OP-K Range of Motion Start: 11/13/19 08:51 Freq: Status: Active Protocol: Document 02/05/20 09:12 AW (Rec: 02/05/20 12:19 AW [id number]) Cervical Spine Range of Motion Cervical Spine Active Degrees Testing Position Sitting Flexion 27 Extension 31 Comments Limitation in B lateral flexion. Rotation more limited to the left Shoulder Goniometric Range of Motion Shoulder Left Active Flexion 126 Comments R 128 Elbow/Forearm Range of Motion Elbow/Forearm ROM Limitations Comments Bilat elbow ROM WNL PT-OP-L Special Tests Start: 11/13/19 08:51 Freq: Status: Active Protocol: Document 02/05/20 09:12 AW (Rec: 02/05/20 12:19 AW [id number]) Special Tests Cervical Spine Special Tests Spurling's Test Test Results negative bilaterally Comments with cervical retraction PT-OP-M Strength Start: 11/13/19 08:51 Freq: Status: Active Protocol: Document 02/05/20 09:12 AW (Rec: 02/05/20 12:19 AW [id number]) Cervical Spine Strength Cervical Spine Manual Muscle Testing Testing Position Sitting Flexion (C1-2) 4+ Good+ Extension 4+ Good+ Rotation Left 4+ Good+ Rotation Right 4+ Good+ Lateral Flexion Left (C3) 4 Good Lateral Flexion Right (C3) 4 Good Scapula Strength Scapula Manual Muscle Testing Left Elevation (C4) 4+ Good+ Adduction 4- Good- Abduction 4 Good Depression 4 Good Comments Right consistent with left Shoulder Strength Shoulder Manual Muscle Testing Left Flexion 4 Good Abduction (C5) 4 Good External Rotation 4+ Good+ Internal Rotation 4+ Good+ PT-OP-Q Treatments Start: 11/13/19 08:51 Freq: Status: Active Protocol: Document 02/12/20 11:39 AW (Rec: 02/12/20 11:48 AW [email or web address]) Therapeutic Exercises Sitting Exercises chest press Sitting Exercise Name chest press Side bilateral Resistance level 2 Equipment Used TB Reps/Minutes 10 reps Comments cued shoulder depression HS stretch Sitting Exercise Name HS stretch Side bilateral Reps/Minutes 30 sec x 4 BLE Comments with active ankle ROM resisted horizontal abduction Sitting Exercise Name resisted horizontal abduction Side bilateral Resistance level 2 Equipment Used TB Reps/Minutes 10 reps x 2 cervical rotation Sitting Exercise Name AROM and little over pressure stretch Side bilateral Reps/Minutes 20 sec hold Comments AROM hold stretch, cued up tall alignment pressure relief Sitting Exercise Name pressure relief Side bilateral Reps/Minutes 5 sec hold x 10 Comments hands on propulsion rims isometric lat dorsi Sitting Exercise Name isometric lat dorsi Side bilateral Equipment Used trekking poles Reps/Minutes 5 sec hold x 10 reps; 2 sets Comments high gaming cage cashier and low gaming cage cashier; cued shoulder depression resisted row Sitting Exercise Name resisted row Side bilateral Resistance level 2 Equipment Used TB Reps/Minutes 2x10 Comments cued CS and chest elevation, scap dep/retraction GH ER with resistance Sitting Exercise Name GH ER with resistance Resistance level 2 Equipment Used TB Reps/Minutes 10 reps x 2 Comments cued elbows tucked to sides, slow controlled movement, relaxed shoulders upper traps stretch Sitting Exercise Name upper traps stretch (side bend ) Side bilateral Resistance self and little self over pressure stretch Reps/Minutes 20 sec Comments AROM hold stretch, cued up tall alignment Therapeutic Activity Therapeutic Activity SPT, supine<>sitting Name stand pivot transfer Reps/Minutes 4 reps Comments w/c <> mat table pivot with FWW. Pt stood during each transfer 60 seconds for improved standing tolerance Manual Therapy Treatment Soft Tissue Mobilization STM bilateral upper traps Body Location upper traps Mobilization Type Myofascial Release,Sustained Pressure,Trigger Point Release Intensity/Depth Moderate Body Position Sitting PT-OP-T Assessment and Plan Start: 11/13/19 08:51 Freq: Status: Active Protocol: Document 02/12/20 11:39 AW (Rec: 02/12/20 11:48 AW [email or web address]) Physical Therapy Assessment Impairments Impairments Functional Activities, Functional Mobility,Pain, Posture,ROM,Sensation,Soft Tissue Mobility,Strength Other Concerns Fall Risk high Goals Four Impairment sleep Short Term Goal (STG) Pt will improve sleep hygiene and positioning to report increase in undisturbed sleep. STG Duration 12/18/2019 English Language Learner Teacher Goal (LTG) Pt will sleep 7 undisturbed hours for 3/7 nights. 02/05/20 - PROGRESSING LTG Duration 04/01/2020 Three Impairment Pt scores 37/50 on NDI English Language Learner Teacher Goal (LTG) Pt will score 27/50 or less on NDI to indicate improved daily function PROGRESSING - 26/50 on New goal: Pt to score 20/50 or less on NDI for improved daily function LTG Duration 04/01/2020 Two Impairment shoulder ROM Halfway Goal (LTG) Pt will improve bilateral shoulder active flexion to 135 degrees for improved ability to perform ADL's NOT MET: AROM remains ~126-128 bilaterally LTG Duration 03/26/2020 One Impairment Pt has no exercise program Short Term Goal (STG) Pt will be independent with HEP for support of therapy services provided in clinic STG Duration 12/18/2019 English Language Learner Teacher Goal (LTG) Pt will be independent with maintenance HEP LTG Duration 04/01/2020 Assessment Summary Assessment Pt continues to progress with reduction in cervicalgia and increase in shoulder strength. Pt's postural awareness still requires frequent cueing but pt is improving with occasional observed self- correction. Physical Therapy Plan Frequency and Duration Frequency of Treatment 2x/Week Duration of Treatment 8 weeks Plan of Care Start Date 02/05/20 Plan of Care End Date 04/01/20 Therapeutic Interventions Therapeutic Interventions Home Exercise Program,Joint Mobilizations,Manual Therapy, Neuromuscular Re-education, Patient/Caregiver Education, Self-Care/Home Management,Soft Tissue Mobilization, Therapeutic Activities, Therapeutic Exercises Next Visit Focus/Plan Next Note Type Treatment Note Next Visit Plan assess response to last tx: postural strengthening, cervical flexibility and transfers SPT. Continue Progress sit to stand strengthening for stability during transfers and decreased upper body WB and pressure on CS.
--- NOTE | 2020-02-19 11:01 | PT.OTN ---
Current Diagnoses Cervicalgia (02/19/20) Abnormal posture (02/19/20) Physical Therapy Treatment Note PT-OP-A Visit Information Start: 11/13/19 08:51 Freq: Status: Active Protocol: Document 02/19/20 10:52 AW (Rec: 02/19/20 11:01 AW [email or web address]) Out-Patient Physical Therapy Visit Information Visit Information Visit Type Treatment Note Visit Start Time 09:46 Visit Stop Time 10:28 Total Visit Minutes 42 Visit Number 17 Number of INSTALLATION AND REPAIR TECHNICIAN Visits 0 Evaluation Information Evaluation Date 11/13/19 PT-OP-B Current Condition Start: 11/13/19 08:51 Freq: Status: Active Protocol: Document 11/13/19 12:17 AW (Rec: 11/13/19 13:05 AW [email or web address]) Current Condition History of Current Condition Onset Date 1 year Current Complaints neck pain History of Current Condition Tali has a history of a fib diagnosed in the last few years and a fall resulting in ankle fracture one year ago. Prior to her fall, she was ambulatory with 4WW. She was NWB RLE after the fracture and never fully recovered her mobility. She now uses a manual wheelchair for most mobility. She lives at [facility] and receives med assist as well as standby assist with showers. Tali states she typically uses her legs to propel the wheelchair with the foot rests removed. She is also capable of self- propelling with her arms which she does ~25% of the time. Since transitioning to full- time wheelchair mobility, she has noticed increased neck pain which becomes so bad it makes her nauseous. She states her neck pain begins at the back of her head and can quickly become achy and sharp. Her pain tends to become worse as the day progresses unless she catches it early and gives herself a head massage. She states it usually helps to gently move her head side to side and up and down. Pt denies any head trauma, recent infection, bilateral upper extremity symptoms, or drop attacks. She reports left hip pain as well but agrees to focus this plan of care on her neck pain. 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 PT-OP-F Manual Assessment Start: 11/13/19 08:51 Freq: Status: Active Protocol: Document 11/13/19 12:17 AW (Rec: 11/13/19 13:05 AW [email or web address]) Manual Assessments Soft Tissue Assessment Soft Tissue Mobility Assessment Dense upper trapezius, bilateral cervical paraspinals , bilateral occipitals Joint Mobility Assessment Joint Mobility Assessment Good lateral movement C1-C7. Restricted PROM bilateral shoulders in flexion and abduction. PT-OP-H Neuro Start: 11/13/19 08:51 Freq: Status: Active Protocol: Document 11/13/19 12:17 AW (Rec: 11/13/19 13:05 AW [email or web address]) Sensation Evaluation Gross Sensation Gross Sensation WNL PT-OP-J Posture/Palpation/Skin Start: 11/13/19 08:51 Freq: Status: Active Protocol: Document 11/13/19 12:17 AW (Rec: 11/13/19 13:05 AW [email or web address]) Posture Evaluation Position Sitting Evaluation View Lateral Head/C-Spine Posture Extended,Forward Head T-Spine Posture Increased Kyphosis Shoulder Posture (L) Rounded,(R) Rounded,(L) Forward,(R) Forward Scapula Posture (L) Protracted,(R) Protracted Weight Distribution Balanced PT-OP-K Range of Motion Start: 11/13/19 08:51 Freq: Status: Active Protocol: Document 02/05/20 09:12 AW (Rec: 02/05/20 12:19 AW [id number]) Cervical Spine Range of Motion Cervical Spine Active Degrees Testing Position Sitting Flexion 27 Extension 31 Comments Limitation in B lateral flexion. Rotation more limited to the left Shoulder Goniometric Range of Motion Shoulder Left Active Flexion 126 Comments R 128 Elbow/Forearm Range of Motion Elbow/Forearm ROM Limitations Comments Bilat elbow ROM WNL PT-OP-L Special Tests Start: 11/13/19 08:51 Freq: Status: Active Protocol: Document 02/05/20 09:12 AW (Rec: 02/05/20 12:19 AW [id number]) Special Tests Cervical Spine Special Tests Spurling's Test Test Results negative bilaterally Comments with cervical retraction PT-OP-M Strength Start: 11/13/19 08:51 Freq: Status: Active Protocol: Document 02/05/20 09:12 AW (Rec: 02/05/20 12:19 AW [id number]) Cervical Spine Strength Cervical Spine Manual Muscle Testing Testing Position Sitting Flexion (C1-2) 4+ Good+ Extension 4+ Good+ Rotation Left 4+ Good+ Rotation Right 4+ Good+ Lateral Flexion Left (C3) 4 Good Lateral Flexion Right (C3) 4 Good Scapula Strength Scapula Manual Muscle Testing Left Elevation (C4) 4+ Good+ Adduction 4- Good- Abduction 4 Good Depression 4 Good Comments Right consistent with left Shoulder Strength Shoulder Manual Muscle Testing Left Flexion 4 Good Abduction (C5) 4 Good External Rotation 4+ Good+ Internal Rotation 4+ Good+ PT-OP-Q Treatments Start: 11/13/19 08:51 Freq: Status: Active Protocol: Document 02/19/20 10:52 AW (Rec: 02/19/20 11:01 AW [email or web address]) Therapeutic Exercises Sitting Exercises T/S rotation Sitting Exercise Name arms crossed and punches Equipment Used w/c Reps/Minutes 10x2 each Comments seated toward edge of chair abd ball press Sitting Exercise Name abd ball press Equipment Used 35 cm/blue ball; w/c Reps/Minutes 10x2 Comments cues for stacked posture good morning Sitting Exercise Name good morning Equipment Used w/c Reps/Minutes 10x2 Comments cues for cervical neutral abdominal lean back Sitting Exercise Name abdominal lean back Equipment Used w/c Reps/Minutes 10x2 Comments cues to start at front of chair and control backward lean cervical rotation Sitting Exercise Name AROM and little over pressure stretch Side bilateral Reps/Minutes 20 sec hold Comments AROM hold stretch, cued up tall alignment pressure relief Sitting Exercise Name pressure relief Side bilateral Reps/Minutes 5 sec hold x 10 Comments hands on propulsion rims upper traps stretch Sitting Exercise Name upper traps stretch (side bend ) Side bilateral Resistance self and little self over pressure stretch Reps/Minutes 20 sec Comments AROM hold stretch, cued up tall alignment PT-OP-T Assessment and Plan Start: 11/13/19 08:51 Freq: Status: Active Protocol: Document 02/19/20 10:52 AW (Rec: 02/19/20 11:01 AW [email or web address]) Physical Therapy Assessment Impairments Impairments Functional Activities, Functional Mobility,Pain, Posture,ROM,Sensation,Soft Tissue Mobility,Strength Other Concerns Fall Risk high Goals Four Impairment sleep Short Term Goal (STG) Pt will improve sleep hygiene and positioning to report increase in undisturbed sleep. STG Duration 12/18/2019 Hooker Off Goal (LTG) Pt will sleep 7 undisturbed hours for 3/7 nights. 02/05/20 - PROGRESSING LTG Duration 04/01/2020 Three Impairment Pt scores 37/50 on NDI Hooker Off Goal (LTG) Pt will score 27/50 or less on NDI to indicate improved daily function PROGRESSING - 26/50 on New goal: Pt to score 20/50 or less on NDI for improved daily function LTG Duration 04/01/2020 Two Impairment shoulder ROM Correction Goal (LTG) Pt will improve bilateral shoulder active flexion to 135 degrees for improved ability to perform ADL's NOT MET: AROM remains ~126-128 bilaterally LTG Duration 03/26/2020 One Impairment Pt has no exercise program Short Term Goal (STG) Pt will be independent with HEP for support of therapy services provided in clinic STG Duration 12/18/2019 Hooker Off Goal (LTG) Pt will be independent with maintenance HEP LTG Duration 04/01/2020 Assessment Summary Assessment Attempted SPT to [employer] today but pt was unable to stand with FWW due to increased right thigh pain. Focused treatment today on postural control and core strengthening in w/c with pt tolerating increase in exercise load well when given short rest breaks. Physical Therapy Plan Frequency and Duration Frequency of Treatment 2x/Week Duration of Treatment 8 weeks Plan of Care Start Date 02/05/20 Plan of Care End Date 04/01/20 Therapeutic Interventions Therapeutic Interventions Home Exercise Program,Joint Mobilizations,Manual Therapy, Neuromuscular Re-education, Patient/Caregiver Education, Self-Care/Home Management,Soft Tissue Mobilization, Therapeutic Activities, Therapeutic Exercises Next Visit Focus/Plan Next Note Type Treatment Note Next Visit Plan assess response to last tx: postural strengthening, cervical flexibility and transfers SPT. Continue Progress sit to stand strengthening for stability during transfers and decreased upper body WB and pressure on CS.
--- NOTE | 2020-02-25 09:37 | PT.OPDS ---
Current Diagnoses Cervicalgia (02/19/20) Abnormal posture (02/19/20) Visit Care Team Role Provider Type Carissa Chen MD Attending Provider Physician Family Provider Primary Care Provider Referring Provider Specialty: Internal Medicine Address: [address] [place] [id number] Email: [email or web address] Visit Number Visit Number [id number] Discharge Summary PT-OP-B Current Condition Start: 11/13/19 08:51 Freq: Status: Active Protocol: Document 11/13/19 12:17 AW (Rec: 11/13/19 13:05 AW [email or web address]) Current Condition History of Current Condition Onset Date 1 year Current Complaints neck pain History of Current Condition Tali has a history of a fib diagnosed in the last few years and a fall resulting in ankle fracture one year ago. Prior to her fall, she was ambulatory with 4WW. She was NWB RLE after the fracture and never fully recovered her mobility. She now uses a manual wheelchair for most mobility. She lives at [facility] and receives med assist as well as standby assist with showers. Tali states she typically uses her legs to propel the wheelchair with the foot rests removed. She is also capable of self- propelling with her arms which she does ~25% of the time. Since transitioning to full- time wheelchair mobility, she has noticed increased neck pain which becomes so bad it makes her nauseous. She states her neck pain begins at the back of her head and can quickly become achy and sharp. Her pain tends to become worse as the day progresses unless she catches it early and gives herself a head massage. She states it usually helps to gently move her head side to side and up and down. Pt denies any head trauma, recent infection, bilateral upper extremity symptoms, or drop attacks. She reports left hip pain as well but agrees to focus this plan of care on her neck pain. 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 PT-OP-F Manual Assessment Start: 11/13/19 08:51 Freq: Status: Active Protocol: Document 11/13/19 12:17 AW (Rec: 11/13/19 13:05 AW [email or web address]) Manual Assessments Soft Tissue Assessment Soft Tissue Mobility Assessment Dense upper trapezius, bilateral cervical paraspinals , bilateral occipitals Joint Mobility Assessment Joint Mobility Assessment Good lateral movement C1-C7. Restricted PROM bilateral shoulders in flexion and abduction. PT-OP-H Neuro Start: 11/13/19 08:51 Freq: Status: Active Protocol: Document 11/13/19 12:17 AW (Rec: 11/13/19 13:05 AW [email or web address]) Sensation Evaluation Gross Sensation Gross Sensation WNL PT-OP-J Posture/Palpation/Skin Start: 11/13/19 08:51 Freq: Status: Active Protocol: Document 11/13/19 12:17 AW (Rec: 11/13/19 13:05 AW [email or web address]) Posture Evaluation Position Sitting Evaluation View Lateral Head/C-Spine Posture Extended,Forward Head T-Spine Posture Increased Kyphosis Shoulder Posture (L) Rounded,(R) Rounded,(L) Forward,(R) Forward Scapula Posture (L) Protracted,(R) Protracted Weight Distribution Balanced PT-OP-K Range of Motion Start: 11/13/19 08:51 Freq: Status: Active Protocol: Document 02/05/20 09:12 AW (Rec: 02/05/20 12:19 AW [id number]) Cervical Spine Range of Motion Cervical Spine Active Degrees Testing Position Sitting Flexion 27 Extension 31 Comments Limitation in B lateral flexion. Rotation more limited to the left Shoulder Goniometric Range of Motion Shoulder Left Active Flexion 126 Comments R 128 Elbow/Forearm Range of Motion Elbow/Forearm ROM Limitations Comments Bilat elbow ROM WNL PT-OP-L Special Tests Start: 11/13/19 08:51 Freq: Status: Active Protocol: Document 02/05/20 09:12 AW (Rec: 02/05/20 12:19 AW [id number]) Special Tests Cervical Spine Special Tests Spurling's Test Test Results negative bilaterally Comments with cervical retraction PT-OP-M Strength Start: 11/13/19 08:51 Freq: Status: Active Protocol: Document 02/05/20 09:12 AW (Rec: 02/05/20 12:19 AW [id number]) Cervical Spine Strength Cervical Spine Manual Muscle Testing Testing Position Sitting Flexion (C1-2) 4+ Good+ Extension 4+ Good+ Rotation Left 4+ Good+ Rotation Right 4+ Good+ Lateral Flexion Left (C3) 4 Good Lateral Flexion Right (C3) 4 Good Scapula Strength Scapula Manual Muscle Testing Left Elevation (C4) 4+ Good+ Adduction 4- Good- Abduction 4 Good Depression 4 Good Comments Right consistent with left Shoulder Strength Shoulder Manual Muscle Testing Left Flexion 4 Good Abduction (C5) 4 Good External Rotation 4+ Good+ Internal Rotation 4+ Good+ PT-OP-T Assessment and Plan Start: 11/13/19 08:51 Freq: Status: Active Protocol: Document 02/25/20 09:36 AW (Rec: 07/29/20 09:37 AW [email or web address]) Physical Therapy Assessment Other Concerns Fall Risk high Goals Four Impairment sleep Short Term Goal (STG) Pt will improve sleep hygiene and positioning to report increase in undisturbed sleep. STG Duration 12/18/2019 Human Resources Recruiter Goal (LTG) Pt will sleep 7 undisturbed hours for 3/7 nights. 02/05/20 - PROGRESSING LTG Duration 04/01/2020 Three Impairment Pt scores 37/50 on NDI Fpc Goal (LTG) Pt will score 27/50 or less on NDI to indicate improved daily function PROGRESSING - 26/50 on New goal: Pt to score 20/50 or less on NDI for improved daily function LTG Duration 04/01/2020 Two Impairment shoulder ROM Fpc Goal (LTG) Pt will improve bilateral shoulder active flexion to 135 degrees for improved ability to perform ADL's NOT MET: AROM remains ~126-128 bilaterally LTG Duration 03/26/2020 One Impairment Pt has no exercise program Short Term Goal (STG) Pt will be independent with HEP for support of therapy services provided in clinic STG Duration 12/18/2019 Human Resources Recruiter Goal (LTG) Pt will be independent with maintenance HEP LTG Duration 04/01/2020 Physical Therapy Plan Therapeutic Interventions Therapeutic Interventions Neuromuscular Re-education, Patient/Caregiver Education, Self-Care/Home Management,Soft Tissue Mobilization, Therapeutic Activities, Therapeutic Exercises,Home Exercise Program,Joint Mobilizations,Manual Therapy Discharge Physical Therapy Discharge Reasons No Longer Attending PT Discharge Comments Pt canceled appointments and no longer attending physical therapy.
== END 2020-07-29 14:22 ==
LOC: PHYS 09:45
PROVIDERS: Family Provider Internal Medicine; PCP Internal Medicine; Referring Provider Internal Medicine; Visit Provider Internal Medicine
DX: M54.2 Cervicalgia (principal); R29.3 Abnormal posture
CPT/HCPCS: 97110; 97140; 97161; 97530

== ENCOUNTER 2020-02-22 18:09 | Emergency (ER) | payer MEDICARE, SELFPAY ==
[2020-02-22] VITALS (12 sets, daily range): BP systolic 120–132; BP diastolic 62–71; PULSE 80–100; RESP 16–27; TEMP 37.1; O2SAT 91–98; BMI 39.5
--- NOTE | 2020-02-22 18:31 | PC.NURSE ---
max two person assist from wheelchair to bed
--- NOTE | 2020-02-22 18:41 | ED_ITS ---
HPI - Fall General Chief Complaint: Fall Stated Complaint: multiple falls, not sleeping, exhuasted Time Seen by Provider: 02/22/20 18:10 Source: patient Mode of arrival: Wheelchair Limitations: no limitations History of Present Illness HPI Narrative: 84F former smoker with history of AFib on Xarelto presents with nursing staff from the care home across the street due to complaints of fatigue, trouble sleeping and a fall yesterday. She did lightly strike her head but denies any headache, loss of consciousness nor nausea, vomiting or diarrhea. She states that she was trying to take a few steps while using her walker and fell back onto her ?mable?. She normally has 1-2 person assist with piviot and this is her current level of assistance. She denies dizziness or lightheadedness. She has had no fever, chills, chest pain or cough. MD complaint: fall Onset (ago): day(s) Fall from: standing Place fall occurred: home Loss of consciousness: none Prolonged down time: no Symptoms prior to fall: none Context: tripped/slipped Severity: mild Associated symptoms (after fall): weakness Related Data Home Medications Medication Instructions Recorded Confirmed gabapentin 300 mg PO BID 08/07/17 03/13/19 Amitiza 24 mcg PO DAILY 12/07/17 03/13/19 furosemide 20 mg PO DAILY 12/07/17 03/13/19 aspirin 81 mg PO DAILY 12/26/17 03/13/19 metoprolol succinate 50 mg PO DAILY 12/26/17 03/13/19 doxepin 100 mg PO BEDTIME 01/23/18 03/13/19 diltiazem HCl 180 mg PO DAILY 10/10/18 03/13/19 escitalopram oxalate 20 mg PO DAILY 10/10/18 03/13/19 gabapentin 600 mg PO BEDTIME 10/10/18 03/13/19 nystatin 1 applic TOPICAL BID 10/10/18 03/13/19 omeprazole 20 mg PO DAILY 10/10/18 03/13/19 potassium chloride 10 meq PO QPM 10/10/18 03/13/19 Xarelto 20 mg PO DAILY 01/09/19 03/13/19 acetaminophen 325 mg PO Q6H PRN 01/09/19 03/13/19 calcium carbonate [Oyster Shell 500 mg PO DAILY 01/09/19 03/13/19 Calcium 500] cholecalciferol (vitamin D3) 2,000 unit PO DAILY 01/09/19 03/13/19 [Vitamin D3] rosuvastatin 40 mg PO DAILY 01/09/19 03/13/19 Previous Rx's Medication Instructions Recorded polyethylene glycol 3350 17 gm PO DAILY #1 pkg 10/13/18 oxycodone 5 - 10 mg PO Q4H PRN #50 tab 01/09/19 ciprofloxacin HCl 500 mg PO Q12H #14 tab 03/13/19 Allergies Allergy/AdvReac Type Severity Reaction Status Date / Time Sulfa (Sulfonamide Allergy Intermediate Rash Verified 02/22/20 18:22 Antibiotics) Review of Systems Constitutional Constitutional: Denies chills, Denies fatigue, Denies fever(s), Denies frequent falls, Denies lethargy and Reports weakness Eyes Eyes: Denies change in vision, Denies eye discharge, Denies irritation and Denies loss of vision ENT Ears, Nose, Mouth, and Throat: Denies change in voice, Denies dizziness, Denies neck pain, Denies sore throat and Denies throat swelling Cardiovascular Cardiovascular: Denies chest pain, Denies irregular heart rhythm, Denies lightheadedness, Denies palpitations, Denies dyspnea, Denies dyspnea on exertion and Denies orthopnea Respiratory Respiratory: Denies cough, Denies dyspnea, Denies dyspnea on exertion and Denies wheezing Gastrointestinal Gastrointestinal: Denies abdominal pain, Denies change in bowel habits, Denies diarrhea, Denies nausea and Denies vomiting Musculoskeletal Musculoskeletal: Reports arthralgias, Denies neck pain and Denies numbness Integumentary/Breasts Skin/Breast: Denies pruritus, Denies erythema, Denies rash and Denies wounds Neurologic Neurologic: Denies behavioral changes, Denies confusion, Denies dizziness, Denies frequent falls, Denies loss of vision, Denies numbness and Reports weakness Psychiatric Psychiatric: Denies anxiety, Denies behavioral changes, Denies confusion, Denies depression, Denies homicidal ideation and Denies suicidal ideation Endocrine Endocrine: Denies fatigue, Denies flushing and Denies palpitations Hematologic/Lymphatic Hematologic/Lymphatic: Denies easy bruising Allergic/Immunologic Allergic/Immunologic: Denies urticaria, Denies throat swelling and Denies wheezing Patient History Medical History (Updated 02/22/20 @ 22:00 by Eric Chris DO) Chronic pain Dementia Depression GERD (gastroesophageal reflux disease) Herpes encephalitis History of lumbar puncture (08/29/18) Hyperlipidemia Hypertension Hypoxia (10/10/18) Impaired fasting glucose Pulmonary fibrosis Stroke Surgical History History of ankle surgery (10/11/18) Social History details: two years ago number of children: 2 household members: none lives independently: Yes caregiver/support person: Yes housing: apartment other: Denies alcohol drinking or cigarette smoking. Her son of overdose 1 w Smoking Status: Former smoker alcohol intake: current Smoking Status: Former smoker alcohol intake frequency: holidays/special occasions only Substance Use Type: does not use Exam Initial Vital Signs Initial Vital Signs: Vital Signs Temperature 98.7 F 02/22/20 18:19 Pulse Rate 80 02/22/20 18:19 Respiratory Rate 16 02/22/20 18:19 Blood Pressure 128/62 02/22/20 18:19 Pulse Oximetry 96 02/22/20 18:19 Course Orders Ordered: ED Orders 02/22/20 18:21 EKG-12 Lead Stat 02/22/20 19:04 CT head/brain wo con Stat XR pelvis 1-2V Stat 02/22/20 19:09 Complete Blood Count AUTO DIFF Stat Comprehensive Metabolic Panel Stat NT-proBNP (BNP-Adult 18+) Stat Prothrombin Time INR Stat Troponin & CK Cardiac Panel Stat 02/22/20 20:40 COVID19 Stat 02/22/20 21:03 Urine Microscopic Stat Vital Signs Vital signs: Vital Signs - 8 hr 02/22/20 18:19 02/22/20 18:36 02/22/20 18:37 Temperature 98.7 F Pulse Rate 80 87 Respiratory Rate 16 20 21 Blood Pressure 128/62 120/71 Pulse Oximetry 96 91 95 02/22/20 19:00 02/22/20 19:30 02/22/20 20:00 Temperature Pulse Rate 88 85 91 H Respiratory Rate 19 Blood Pressure Pulse Oximetry 97 95 95 02/22/20 20:30 02/22/20 20:45 02/22/20 21:00 Temperature Pulse Rate 96 H 100 H 99 H Respiratory Rate 19 20 27 H Blood Pressure 127/64 Pulse Oximetry 96 96 96 11/28/20 21:30 02/22/20 22:22 02/22/20 22:32 Temperature Pulse Rate 92 H Respiratory Rate 20 Blood Pressure 132/62 Pulse Oximetry 94 98 MDM - Fall Lab Data Result diagrams: 02/22/20 19:09 02/22/20 19:09 Labs: Lab Results 02/22/20 02/22/20 02/22/20 Range/Units 19:09 19:09 19:09 WBC 11.8 H (4.5-11.0) X10^3/uL RBC 4.07 (4.0-5.2) X10^6/uL Hgb 9.7 L (12.0-16.0) g/dL Hct 31.2 L (36-46) % MCV 76.6 L (80-100) fL MCH 23.7 L (26-34) PG MCHC 31.0 (30-36) % RDW 16.2 H (11.6-14.8) % Plt Count 385 (150-400) X10^3/uL Neut % (Auto) 66.5 (50-75) % Lymph % (Auto) 21.8 L (25-40) % [place] % (Auto) 9.0 (3-14) % Eos % (Auto) 2.0 (2-4) % Baso % (Auto) 0.7 (0-2) % Neut # (Auto) 7800 H (9476-8358) /uL Lymph # (Auto) 2600 (2646-7924) /uL [place] # (Auto) 1100 H (0-900) /uL Eos # (Auto) 200 (0-450) /uL Baso # (Auto) 100 (0-100) /uL PT 20.7 H (10.1-12.7) SECONDS INR 1.8 H (0.9-1.3) Sodium 135 L (137-145) mmol/L Potassium 3.5 (3.4-5.1) mmol/L Chloride 98 (98-107) mmol/L Carbon Dioxide 33 H (22-32) mmol/L BUN 13 (7-17) mg/dL Creatinine 1.35 H (0.52-1.04) mg/dL Estimated GFR 37.5 L (>60) mL/min BUN/Creatinine Ratio 9.6 (6-22) Glucose 159 H (80-110) mg/dL Calcium 8.9 (8.4-10.2) mg/dL Total Bilirubin 0.5 (0.2-1.3) mg/dL AST 19 (14-36) IU/L ALT 9 (<35) IU/L Alkaline Phosphatase 143 H (38-126) U/L Total Creatine Kinase (30-135) U/L CK-MB (CK-2) CK-MB (CK-2) Rel Index Troponin I (0.01-0.034) ng/mL NT-Pro-B Natriuret Pep 773 H (<450) pg/mL Total Protein 7.6 (6.3-8.2) g/dL Albumin 3.9 (3.5-5.0) g/dL Globulin 3.7 (1.7-4.1) g/dL Albumin/Globulin Ratio 1.1 (1.0-2.8) Urine RBC (0-5/HPF) Urine WBC (0-5/HPF) Ur Squamous Epith Cells (0-5/HPF) Amorphous Sediment Urine Bacteria (None) Hyaline Casts (None) Ur Culture Indicated? COVID-19 PCR (Negative) 02/22/20 02/22/20 02/22/20 Range/Units 19:09 20:40 21:03 WBC (4.5-11.0) X10^3/uL RBC (4.0-5.2) X10^6/uL Hgb (12.0-16.0) g/dL Hct (36-46) % MCV (80-100) fL MCH (26-34) PG MCHC (30-36) % RDW (11.6-14.8) % Plt Count (150-400) X10^3/uL Neut % (Auto) (50-75) % Lymph % (Auto) (25-40) % [place] % (Auto) (3-14) % Eos % (Auto) (2-4) % Baso % (Auto) (0-2) % Neut # (Auto) (1629-6836) /uL Lymph # (Auto) (5491-0806) /uL [place] # (Auto) (0-900) /uL Eos # (Auto) (0-450) /uL Baso # (Auto) (0-100) /uL PT (10.1-12.7) SECONDS INR (0.9-1.3) Sodium (137-145) mmol/L Potassium (3.4-5.1) mmol/L Chloride (98-107) mmol/L Carbon Dioxide (22-32) mmol/L BUN (7-17) mg/dL Creatinine (0.52-1.04) mg/dL Estimated GFR (>60) mL/min BUN/Creatinine Ratio (6-22) Glucose (80-110) mg/dL Calcium (8.4-10.2) mg/dL Total Bilirubin (0.2-1.3) mg/dL AST (14-36) IU/L ALT (<35) IU/L Alkaline Phosphatase (38-126) U/L Total Creatine Kinase 78 (30-135) U/L CK-MB (CK-2) TNP CK-MB (CK-2) Rel Index TNP Troponin I < 0.012 (0.01-0.034) ng/mL NT-Pro-B Natriuret Pep (<450) pg/mL Total Protein (6.3-8.2) g/dL Albumin (3.5-5.0) g/dL Globulin (1.7-4.1) g/dL Albumin/Globulin Ratio (1.0-2.8) Urine RBC 0-1/hpf (0-5/HPF) Urine WBC None seen (0-5/HPF) Ur Squamous Epith Cells 1-5 /hpf (0-5/HPF) Amorphous Sediment 3+ Urine Bacteria Few (2-10) H (None) Hyaline Casts 0-1/lpf (None) Ur Culture Indicated? Cult not indicated COVID-19 PCR Negative (Negative) Urine Dip Bedside Urine Glucose Negative Bedside Urine Bilirubin - Negative Bedside Urine Ketone - Negative Urine Specific Maud 1.015 Bedside Urine Occult Blood ++ Bedside Urine pH 7.5 Bedside Urine Protein - Negative Bedside Urine Urobilinogen - Negative Bedside Urine Nitrite - Negative Bedside Urine Leukocytes + [address] scan - head: Radiologist's Impression: [address] [address]CT Scan ReportSigned Patient: Tali Burton CHILO#: [id number]: 8Acct:[id number]/Sex: 84 / FDate of Service: 02/22/20Loc: EDAccession Number: [id number] Procedure: CT head/brain wo con Ordering Provider: Eric Chris D.O. PROCEDURE: CT HEAD/BRAIN WO CON INDICATIONS: fall with head injury, on coumadin TECHNIQUE: Noncontrast 4.5 mm thick angled axial sections acquired from the foramen magnum to the vertex, with coronal and sagittal reformats. For radiation dose reduction, the following was used: automated exposure control, adjustment of mA and/or kV according to patient size. COMPARISON: [facility], MR, MR STROKE, 08/30/2018, 10:33. [facility], CT, CT HEAD/BRAIN WO CON, 08/29/2018, 8:50. FINDINGS: Image quality: Excellent. CSF spaces: Basal cisterns are patent. No extra-axial fluid collections. The ventricles are symmetric in size and shape. Brain: No intracranial bleeds or masses. There is cerebral volume loss for age, with resultant ventricular and sulcal prominence. There are periventricular and deep white matter chronic small vessel ischemic changes. Old lacunar infarction centered in the left deep white matter. There is intracranial internal carotid artery atheroscl erosis. Skull and face: Calvarium and visualized facial bones appear intact, without suspicious lesions. Sinuses: Visualized sinuses and mastoids are clear. IMPRESSION: 1. Age-related volume loss, small vessel ischemic change, remote lacunar infarction. 2. No evidence of acute stroke, hemorrhage, or mass. 3. No evidence significant intracranial sequelae of acute trauma. Dictated by: Ok Subramanian M.D. on 02/22/2020 at 19:36 Approved by: Ok Subramanian M.D. on 02/22/2020 at 19:38 Pelvis Xray: Radiologist's Impression: Chart Viewer Diagnostics DATE TYPE STATUS REF RANGE/AUTHOR Dewayne Today 19:04 Ok Subramanian Today 19:04 Ok Subramanian 02/14/20 15:19 Chilo Haas 02/05/20 00:00 11/29/19 09:31 Jass Hunt 11/29/19 00:00 Jose Parham 10/07/19 15:51 Abigail Sands 09/04/19 00:00 Willie Weeks 06/07/19 00:00 Raimundo Asif 05/20/19 23:26 Willie Weeks 03/13/19 11:15 WmQuanShanae 01/09/19 07:19 01/09/19 00:00 Mike Gibsonn 12/27/18 00:00 Kraig Landry 10/12/18 08:57 Vivek,Lenny 10/11/18 00:00 TaylorAnthony 10/10/18 19:24 10/10/18 19:13 Ok Subramanian 10/10/18 18:56 Ok Subramanian 10/10/18 16:48 Kraig Landry 08/30/18 14:07 Wilian Rivas 08/30/18 13:28 Avis,Yun 08/29/18 12:02 08/29/18 12:02 08/29/18 12:02 08/29/18 12:02 08/29/18 08:52 Willie Weeks 08/29/18 08:45 Lenny Doyle 05/09/18 00:00 Willie Weeks 03/13/18 00:00 Chilo Haas Barbara J 84, F1935 [facility] ER, Main ED R05 172.72cm 117.934kg BMI: 39.5kg/m? Fall Search Chart No Data to Display Rash ONSET Today 19:00 Tali Burton 84 F [address] [address]LAgh ReportSigned Patient: Tali Burton R#: [id number]: 8Acct:[id number]/Sex: 84 / FDate of Service: 02/22/20Loc: EDAccession Number: [id number] Procedure: XR pelvis 1-2V Ordering Provider: Eric Chris D.O. PROCEDURE: XR PELVIS 1-2V INDICATIONS: fall with pain in bilateral hips TECHNIQUE: 1 view(s) of the pelvis acquired. COMPARISON: None. FINDINGS: Bones: No fractures or dislocations. No suspicious bony lesions. Soft tissues: Visualized bowel gas pattern is normal. No suspicious soft tissue calcifications. IMPRESSION: No evidence acute bony abnormality of the pelvis. If clinical suspicion and/or symptoms persist, further assessment with repeat plain films, or advanced imaging (e.g., CT, MRI, or bone scan) may be helpful for further assessment. Dictated by: Ok Subramanian M.D. on 02/22/2020 at 19:40 Approved by: Ok Subramanian M.D. on 02/22/2020 at 19:40 Discharge Plan Departure Patient Disposition: Home Clinical Impression: Fall Qualifiers: Encounter type: initial encounter Qualified Code(s): W19.XXXA - Unspecified fal l, initial encounter Contusion of hip Qualifiers: Encounter type: initial encounter Laterality: left Qualified Code(s): S70.02XA - Contusion of left hip, initial encounter Instructions: How to Prevent Falls Activity Restrictions/Additional Instructions: *You have been diagnosed with [weakness and a fall with hip pain. Your labs, exam and pictures are very reassuring] *What to do: * continue to take medications as directed *Follow up with your primary care provider in 2-3 days, call for an appointment. Let them know you were seen in the Emergency Department and that we ask that you be seen in follow up *Return to ER if you should have any new, worsening or concerning symptoms Prescriptions: No Action gabapentin 300 mg Capsule 300 mg PO BID RF: 0 metoprolol succinate 50 mg tablet extended release 24 hr 50 mg PO DAILY RF: 0 aspirin 81 mg Tablet,Delayed Release (Dr/Ec) 81 mg PO DAILY RF: 0 gabapentin 600 mg Tablet 600 mg PO BEDTIME RF: 0 diltiazem HCl 180 mg capsule,extended release 24hr 180 mg PO DAILY RF: 0 nystatin 100,000 unit/gram Powder 1 applic TOPICAL BID RF: 0 escitalopram oxalate 20 mg tablet 20 mg PO DAILY RF: 0 potassium chloride 10 mEq Tablet Extended Release 10 meq PO QPM RF: 0 omeprazole 20 mg capsule,delayed release(DR/EC) 20 mg PO DAILY RF: 0 polyethylene glycol 3350 17 gram Powder In Packet 17 gm PO DAILY Qty: 1 RF: 0 furosemide 20 mg Tablet 20 mg PO DAILY RF: 0 Amitiza 24 mcg Capsule 24 mcg PO DAILY RF: 0 doxepin 100 mg Capsule 100 mg PO BEDTIME RF: 0 oxycodone 5 mg tablet 5 - 10 mg PO Q4H PRN (Reason: pain) Qty: 50 RF: 0 rosuvastatin 40 mg Tablet 40 mg PO DAILY RF: 0 cholecalciferol (vitamin D3) [Vitamin D3] 2,000 unit Tablet 2,000 unit PO DAILY RF: 0 Xarelto 20 mg Tablet 20 mg PO DAILY RF: 0 acetaminophen 325 mg tablet 325 mg PO Q6H PRN (Reason: Pain) RF: 0 calcium carbonate [Oyster Shell Calcium 500] 500 mg calcium (1,250 mg) Tablet 500 mg PO DAILY RF: 0 ciprofloxacin HCl 500 mg tablet 500 mg PO Q12H Qty: 14 RF: 0 Referrals: Carissa Chen MD [Primary Care Provider] -
--- NOTE | 2020-02-22 19:04 | DI.RAD.S_ITS ---
PROCEDURE: XR PELVIS 1-2V INDICATIONS: fall with pain in bilateral hips TECHNIQUE: 1 view(s) of the pelvis acquired. COMPARISON: None. FINDINGS: Bones: No fractures or dislocations. No suspicious bony lesions. Soft tissues: Visualized bowel gas pattern is normal. No suspicious soft tissue calcifications. IMPRESSION: No evidence acute bony abnormality of the pelvis. If clinical suspicion and/or symptoms persist, further assessment with repeat plain films, or advanced imaging (e.g., CT, MRI, or bone scan) may be helpful for further assessment. Dictated by: Ok Subramanian M.D. on 02/22/2020 at 19:40 Approved by: Ok Subramanian M.D. on 02/22/2020 at 19:40
--- NOTE | 2020-02-22 19:04 | DI.CT.S_ITS ---
PROCEDURE: CT HEAD/BRAIN WO CON INDICATIONS: fall with head injury, on coumadin TECHNIQUE: Noncontrast 4.5 mm thick angled axial sections acquired from the foramen magnum to the vertex, with coronal and sagittal reformats. For radiation dose reduction, the following was used: automated exposure control, adjustment of mA and/or kV according to patient size. COMPARISON: [facility], MR, MR STROKE, 08/30/2018, 10:33. [facility], CT, CT HEAD/BRAIN WO CON, 08/29/2018, 8:50. FINDINGS: Image quality: Excellent. CSF spaces: Basal cisterns are patent. No extra-axial fluid collections. The ventricles are symmetric in size and shape. Brain: No intracranial bleeds or masses. There is cerebral volume loss for age, with resultant ventricular and sulcal prominence. There are periventricular and deep white matter chronic small vessel ischemic changes. Old lacunar infarction centered in the left deep white matter. There is intracranial internal carotid artery atherosclerosis. Skull and face: Calvarium and visualized facial bones appear intact, without suspicious lesions. Sinuses: Visualized sinuses and mastoids are clear. IMPRESSION: 1. Age-related volume loss, small vessel ischemic change, remote lacunar infarction. 2. No evidence of acute stroke, hemorrhage, or mass. 3. No evidence significant intracranial sequelae of acute trauma. Dictated by: kO Subramanian M.D. on 02/22/2020 at 19:36 Approved by: Ok Subramanian M.D. on 02/22/2020 at 19:38
[2020-02-22 19:17] LABS: Add Manual Diff / Slide Review NO; Basophils Absolute Auto 100 /uL (0-100); Basophils Percent Auto 0.7 % (0-2); Eosinophils Absolute Auto 200 /uL (0-450); Hematocrit 31.2 % (36-46); Hemoglobin 9.7 g/dL (12.0-16.0); Lymphocytes Absolute Auto 2600 /uL (1100-4500); Lymphocytes Percent Auto 21.8 % (25-40); Mean Corpuscular Hemoglobin 23.7 PG (26-34); Mean Corpuscular Volume 76.6 fL (80-100); Monocytes Absolute Auto 1100 /uL (0-900); Neutrophils Absolute Auto 7800 /uL (1500-7000); Neutrophils Percent Auto 66.5 % (50-75); Platelet Count 385 X10^3/uL (150-400); Red Blood Cell Count 4.07 X10^6/uL (4.0-5.2); Red Cell Distribution Width 16.2 % (11.6-14.8); White Blood Cell Count 11.8 X10^3/uL (4.5-11.0)
[2020-02-22 19:27] LABS: INR 1.8 (0.9-1.3); Prothrombin Time 20.7 SECONDS (10.1-12.7)
[2020-02-22 19:38] LABS: Alanine Aminotransferase 9 IU/L (<35); Albumin 3.9 g/dL (3.5-5.0); Albumin Globulin Ratio 1.1 (1.0-2.8); Alkaline Phosphatase 143 U/L (38-126); Aspartate Aminotransferase 19 IU/L (14-36); BUN Creatinine Ratio 9.6 (6-22); Bilirubin Total 0.5 mg/dL (0.2-1.3); Blood Urea Nitrogen 13 mg/dL (7-17); Calcium 8.9 mg/dL (8.4-10.2); Carbon Dioxide 33 mmol/L (22-32); Chloride 98 mmol/L (98-107); Estimated Glomerular Filt Rate 37.5 mL/min (>60); Globulin 3.7 g/dL (1.7-4.1); Glucose 159 mg/dL (80-110); HEMOLYSIS < 15 (0-50); Potassium 3.5 mmol/L (3.4-5.1); Sodium 135 mmol/L (137-145); Total Protein 7.6 g/dL (6.3-8.2)
[2020-02-22 19:47] LABS: NT-proBNP (BNP-Adult 18+) 773 pg/mL (<450)
[2020-02-22 19:54] LABS: Creatine Kinase 78 U/L (30-135)
[2020-02-22 20:06] LABS: Troponin I < 0.012 ng/mL (0.01-0.034)
[2020-02-22 21:09] LABS: COVID19 -Nasal RAPID Negative (Negative)
[2020-02-22 21:27] LABS: WBC Urine None Seen (0-5/HPF)
[2020-02-22 21:46] LABS: Amorphous Sediment Urine 3+; Bacteria Urine Few (2-10); Culture Indicated Urine Cult Not Indicated; Hyaline Casts Urine 0-1/LPF; RBC Urine 0-1/HPF (0-5/HPF); Squamous Epithelial Cell Urine 1-5 /HPF (0-5/HPF)
== END 2020-02-22 22:33 | disposition home or self-care (01) ==
PROVIDERS: Emergency Provider Emergency Medicine; Family Provider Internal Medicine; PCP Internal Medicine
DX: S70.02XA Contusion of left hip, initial encounter (principal); M25.552 Pain in left hip; M25.551 Pain in right hip; S09.90XA Unspecified injury of head, initial encounter; R07.9 Chest pain, unspecified; R53.83 Other fatigue; Z79.01 Long term (current) use of anticoagulants; W19.XXXA Unspecified fall, initial encounter
CPT/HCPCS: 36415; 70450; 72170; 80053; 81003; 81015; 82550; 83880; 84484; 85025; 85610; 87635; 93005; 93010; 99284

== ENCOUNTER → 2020-03-18 15:31 | Outpatient (CLI) | payer MEDICARE, SELFPAY ==
--- NOTE | 2020-03-18 15:33 | DI.MRI.S_ITS ---
PROCEDURE: MR STROKE Pre- and post-contrast brain MRI, non-contrast brain MR angiogram, pre- and postcontrast neck MR angiogram INDICATIONS: CEREBRAL INFARCTION TECHNIQUE: Brain: Noncontrast axial T1 spin echo, axial T2 fast spin echo, sagittal and axial FLAIR, coronal T2 fast spin echo, axial gradient echo, axial diffusion and ADC through the brain. After the administration of contrast, axial 3D VIBE of the cranial vasculature and brain. Brain MRA: Non-contrast 3-D time of flight MR angiogram, with multiple gvpdled-jtofrxzkf-mzrpporqgq (MIP) reformats performed. Neck MRA: Axial and sagittal TruFISP through the neck. Coronal dynamic MR angiogram during administration of contrast in the arterial and venous phases, with 3-dimenstional retlnqt-iepksqloo-dhvlqabjwi (MIP) reformats constructed from subtraction images. COMPARISON: [facility], CT, CT HEAD/BRAIN WO CON, 02/22/2020, 19:07. [facility], MR, MR STROKE, 08/30/2018, 10:33. FINDINGS: Image quality: Excellent. BRAIN: CSF spaces: Ventricles are normal in size and shape. Basal cisterns are patent. No extra-axial fluid collections. Brain: Within the deep white matter of the right frontal lobe, there is focal diffusion weighted signal abnormality, as on series 30, image 68. There is associated dark signal on the ADC map. Developing T2 weighted signal can be seen at this site. Brain parenchymal volume loss is seen. Stable areas of remote prior infarction can be seen. Chronic small vessel ischemic changes are seen. Relatively prominent perivascular spaces are noted. No intracranial bleeds or mass effects. Wyman-white matter interface is normal. Brainstem appears normal. Normal intravascular flow voids are present. No abnormal intracranial enhancement. Skull and face: Calvarial marrow signal is normal. Orbits appear normal. Sinuses: Sinuses and mastoids are clear. BRAIN MR ANGIOGRAM: Anterior circulation: Intracranial internal carotid arteries are normal in size and enhancement. The flow within the paired anterior cerebral arteries is normal and symmetric. The flow within the middle cerebral arteries is normal and symmetric. The anterior communicating artery is seen. No stenoses, occlusions, or aneurysms. Posterior circulation: The visualized portions of the vertebral arteries demonstrate normal caliber, and join to form a normal appearing basilar artery. There is a prominent right posterior communicating artery seen, with an accompanying diminutive right P1 segment. This is attributed to a type origin of the right posterior cerebral artery, which is considered to be a normal developmental variant of typically no clinical consequence. The flow within the posterior cerebral arteries is normal and symmetric. 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 No stenoses, occlusions, or aneurysms. NECK MR ANGIOGRAM: Carotids: Great vessels demonstrate a conventional anatomy as they arise from the aortic arch. The origins of the common carotid arteries appear patent. The calibers and courses of both common carotid arteries are normal. The bifurcation regions demonstrate atherosclerotic irregularity. There is again seen 30-40% narrowing involving the right proximal internal carotid artery. Posterior circulation: The origins of the vertebral arteries appear patent. More superior portions of both vertebral arteries demonstrate normal course and caliber, and join to form a normal appearing basilar artery. Miscellaneous: Subclavian arteries appear patent. Pre-contrast images through the neck show no soft tissue abnormalities. IMPRESSION: BRAIN MRI: There is a subacute infarction seen involving the deep white matter of the right frontal lobe. BRAIN MR ANGIOGRAM: No significant intracranial arterial abnormality is seen. NECK MR ANGIOGRAM: 30-40% narrowing is again seen involving the right proximal internal carotid artery. Dictated by: Wilian Rivas M.D. on 03/18/2020 at 16:47 Approved by: Wilian Rivas M.D. on 03/18/2020 at 16:51
== END ==
PROVIDERS: Family Provider Internal Medicine; PCP Internal Medicine; Referring Provider Internal Medicine; Visit Provider Internal Medicine
DX: I63.9 Cerebral infarction, unspecified (principal); I65.21 Occlusion and stenosis of right carotid artery
CPT/HCPCS: 70548; 70553

== ENCOUNTER → 2020-04-02 19:16 | Outpatient (ROUT) | payer MEDICARE, SELFPAY ==
[2020-04-02 19:30] LABS: Alanine Aminotransferase 8 IU/L (<35); Albumin 3.7 g/dL (3.5-5.0); Albumin Globulin Ratio 1.1 (1.0-2.8); Alkaline Phosphatase 146 U/L (38-126); Aspartate Aminotransferase 20 IU/L (14-36); BUN Creatinine Ratio 8.3 (6-22); Bilirubin Total 0.4 mg/dL (0.2-1.3); Blood Urea Nitrogen 12 mg/dL (7-17); Calcium 9.6 mg/dL (8.4-10.2); Carbon Dioxide 34 mmol/L (22-32); Chloride 99 mmol/L (98-107); Estimated Glomerular Filt Rate 34.8 mL/min (>60); Globulin 3.5 g/dL (1.7-4.1); Glucose 118 mg/dL (80-110); HEMOLYSIS < 15 (0-50); Potassium 3.6 mmol/L (3.4-5.1); Sodium 137 mmol/L (137-145); Total Protein 7.2 g/dL (6.3-8.2)
== END ==
PROVIDERS: Family Provider Internal Medicine; PCP Internal Medicine; Visit Provider Internal Medicine
DX: I50.9 Heart failure, unspecified (principal)
CPT/HCPCS: 80053

== ENCOUNTER → 2020-05-17 14:00 | Outpatient (ROUT) | payer OTHER, SELFPAY ==
[2020-05-17 14:04] LABS: RBC Urine None Seen (0-5/HPF)
[2020-05-17 14:07] LABS: Appearance Urine UA CLEAR; Bilirubin Urine UA NEGATIVE (NEGATIVE); Color Urine UA YELLOW; Glucose Urine UA NEGATIVE (Negative); Ketones Urine UA NEGATIVE (NEGATIVE); Leukocyte Esterase Urine UA NEGATIVE (NEGATIVE); Nitrite Urine UA NEGATIVE (Negative); Occult Blood Urine UA NEGATIVE (Negative); Protein Urine UA NEGATIVE (Negative)
[2020-05-17 14:11] LABS: pH Urine UA 6.5 (4.5-8.0)
[2020-05-17 14:14] LABS: Amorphous Sediment Urine 1+; Bacteria Urine Occasional (0-1); Culture Indicated Urine Cult Not Indicated; Renal Epithelial Cells Urine 0-1/HPF (0-1/HPF); Squamous Epithelial Cell Urine 5-10 /HPF (0-5/HPF); WBC Urine 1-5/HPF (0-5/HPF)
== END ==
PROVIDERS: Family Provider Internal Medicine; PCP Internal Medicine; Visit Provider Internal Medicine
DX: R32 Unspecified urinary incontinence (principal)
CPT/HCPCS: 81001

== ENCOUNTER 2020-06-06 17:36 | Emergency (ER) | payer OTHER, SELFPAY ==
[2020-06-06 17:46] VITALS: BP 118/61; PULSE 72; RESP 16; TEMP 36.1; O2SAT 99; BMI 31.9
[2020-06-06 19:46] LABS: Add Manual Diff / Slide Review NO; Basophils Absolute Auto 100 /uL (0-100); Basophils Percent Auto 0.6 % (0-2); Eosinophils Absolute Auto 300 /uL (0-450); Eosinophils Percent Auto 3.5 % (2-4); Hematocrit 31.4 % (36-46); Hemoglobin 9.6 g/dL (12.0-16.0); Lymphocytes Absolute Auto 2600 /uL (1100-4500); Lymphocytes Percent Auto 26.7 % (25-40); Mean Corpuscular HGB Conc 30.7 % (30-36); Mean Corpuscular Hemoglobin 23.4 PG (26-34); Mean Corpuscular Volume 76.1 fL (80-100); Monocytes Absolute Auto 700 /uL (0-900); Monocytes Percent Auto 7.6 % (3-14); Neutrophils Absolute Auto 6000 /uL (1500-7000); Neutrophils Percent Auto 61.6 % (50-75); Platelet Count 437 X10^3/uL (150-400); Red Blood Cell Count 4.13 X10^6/uL (4.0-5.2); Red Cell Distribution Width 17.2 % (11.6-14.8); White Blood Cell Count 9.8 X10^3/uL (4.5-11.0)
[2020-06-06 19:52] LABS: Prothrombin Time 22.1 SECONDS (10.1-12.7)
[2020-06-06 19:55] LABS: PTT Partial Thromboplastin Tim 37 SECONDS (26.4-36.2)
[2020-06-06 20:15] LABS: Alanine Aminotransferase 11 IU/L (<35); Albumin 3.9 g/dL (3.5-5.0); Alkaline Phosphatase 126 U/L (38-126); Aspartate Aminotransferase 33 IU/L (14-36); BUN Creatinine Ratio 9.6 (6-22); Bilirubin Total 0.5 mg/dL (0.2-1.3); Blood Urea Nitrogen 11 mg/dL (7-17); Calcium 9.6 mg/dL (8.4-10.2); Carbon Dioxide 26 mmol/L (22-32); Chloride 100 mmol/L (98-107); Estimated Glomerular Filt Rate 45.6 mL/min (>60); Globulin 3.8 g/dL (1.7-4.1); Glucose 129 mg/dL (80-110); HEMOLYSIS 69 (0-50); Lipase 43 U/L (23-300); Potassium 4.1 mmol/L (3.4-5.1); Sodium 133 mmol/L (137-145); Total Protein 7.7 g/dL (6.3-8.2)
--- NOTE | 2020-06-06 20:22 | ED_ITS ---
HPI - Abdominal Pain General Chief Complaint: Abdominal Pain Stated Complaint: Stomach Pain Time Seen by Provider: 06/06/20 20:22 History of Present Illness HPI narrative: 84-year-old woman resides in a detention facility with increasing abdominal pain comes in today for further evaluation. She describes no fevers, cough, vomiting, diarrhea. She notes that she did have a bowel m ovement this morning. She has had both of her COVID shots and tolerated both of these quite nicely. She states that she does take polyethylene glycol daily. Related Data Home Medications Medication Instructions Recorded Confirmed gabapentin 300 mg PO BID 08/07/17 03/13/19 Amitiza 24 mcg PO DAILY 12/07/17 03/13/19 furosemide 20 mg PO DAILY 12/07/17 03/13/19 aspirin 81 mg PO DAILY 12/26/17 03/13/19 metoprolol succinate 50 mg PO DAILY 12/26/17 03/13/19 doxepin 100 mg PO BEDTIME 01/23/18 03/13/19 diltiazem HCl 180 mg PO DAILY 10/10/18 03/13/19 escitalopram oxalate 20 mg PO DAILY 10/10/18 03/13/19 gabapentin 600 mg PO BEDTIME 10/10/18 03/13/19 nystatin 1 applic TOPICAL BID 10/10/18 03/13/19 omeprazole 20 mg PO DAILY 10/10/18 03/13/19 potassium chloride 10 meq PO QPM 10/10/18 03/13/19 Xarelto 20 mg PO DAILY 01/09/19 03/13/19 acetaminophen 325 mg PO Q6H PRN 01/09/19 03/13/19 calcium carbonate [Oyster Shell 500 mg PO DAILY 01/09/19 03/13/19 Calcium 500] cholecalciferol (vitamin D3) 2,000 unit PO DAILY 01/09/19 03/13/19 [Vitamin D3] rosuvastatin 40 mg PO DAILY 01/09/19 03/13/19 Previous Rx's Medication Instructions Recorded polyethylene glycol 3350 17 gm PO DAILY #1 pkg 10/13/18 oxycodone 5 - 10 mg PO Q4H PRN #50 tab 01/09/19 ciprofloxacin HCl 500 mg PO Q12H #14 tab 03/13/19 Allergies Allergy/AdvReac Type Severity Reaction Status Date / Time Sulfa (Sulfonamide Allergy Intermediate Rash Verified 02/24/20 08:06 Antibiotics) Review of Systems Review of Systems Narrative: Remainder of review of systems including constitutional, ENT, cardiovascular, respiratory, GI, , musculoskeletal, skin, neurologic and psychiatric systems reviewed and are unremarkable except as noted in HPI. Patient History Medical History Chronic pain Dementia Depression GERD (gastroesophageal reflux disease) Herpes encephalitis History of lumbar puncture (08/29/18) Hyperlipidemia Hypertension Hypoxia (10/10/18) Impaired fasting glucose Pulmonary fibrosis Stroke Surgical History History of ankle surgery (10/11/18) Social History details: two years ago number of children: 2 household members: none lives independently: Yes caregiver/support person: Yes housing: apartment other: Denies alcohol drinking or cigarette smoking. Her son of overdose 1 w Smoking Status: Former smoker alcohol intake: current Smoking Status: Former smoker alcohol intake frequency: holidays/special occasions only Substance Use Type: does not use Exam Narrative Exam Narrative: General: H in no acute distress. Able to give a complete and coherent history. Well-nourished well-developed HEENT: Moist mucous membranes, normal sclera with reactive pupils, Respiratory: Lungs are clear to auscultation, no wheezing no rales no rhonchi. Full and symmetrical air movement Cardiac: Regular rate and rhythm no murmurs no bruits Abdomen: Obese, Soft, nontender, good bowel tones, no flank pain Skin: Warm and dry, no rashes Neurologic: Grossly neurologically intact with no obvious asymmetries or abnormalities Extremities: No trauma, well perfused Psych: Cooperative, appropriate insight and affect Initial Vital Signs Initial Vital Signs: Vital Signs Temperature 96.9 F L 06/06/20 17:46 Pulse Rate 72 06/06/20 17:46 Respiratory Rate 16 06/06/20 17:46 Blood Pressure 118/61 06/06/20 17:46 Pulse Oximetry 99 06/06/20 17:46 Course Orders Ordered: Discontinued Medications Magnesium Citrate (Magnesium Citrate 300 Ml Solution) 300 ml PO NOW ONE Stop: 06/06/20 22:04 Last Admin: 06/06/20 22:31 Dose: 300 ml Documented by: BULL Vital Signs Vital signs: Vital Signs - 8 hr 06/06/20 17:46 06/06/20 20:56 06/06/20 21:00 Temperature 96.9 F L Pulse Rate 72 84 92 H Respiratory Rate 16 17 22 Blood Pressure 118/61 129/85 Pulse Oximetry 99 98 98 06/06/20 21:30 Temperature Pulse Rate 85 Respiratory Rate 22 Blood Pressure 137/75 Pulse Oximetry 97 MDM - Abdominal Pain Medical Records Attestation: I reviewed the patient's medical records. Lab Data Attestation: I reviewed the patient's lab results. Result diagrams: 06/06/20 19:16 06/06/20 19:16 Labs: Lab Results 06/06/20 06/06/20 06/06/20 Range/Units 19:16 19:16 19:16 WBC 9.8 (4.5-11.0) X10^3/uL RBC 4.13 (4.0-5.2) X10^6/uL Hgb 9.6 L (12.0-16.0) g/dL Hct 31.4 L (36-46) % MCV 76.1 L (80-100) fL MCH 23.4 L (26-34) PG MCHC 30.7 (30-36) % RDW 17.2 H (11.6-14.8) % Plt Count 437 H (150-400) X10^3/uL Neut % (Auto) 61.6 (50-75) % Lymph % (Auto) 26.7 (25-40) % [place] % (Auto) 7.6 (3-14) % Eos % (Auto) 3.5 (2-4) % Baso % (Auto) 0.6 (0-2) % Neut # (Auto) 6000 (7611-3597) /uL Lymph # (Auto) 2600 (2426-1752) /uL [place] # (Auto) 700 (0-900) /uL Eos # (Auto) 300 (0-450) /uL Baso # (Auto) 100 (0-100) /uL PT 22.1 H (10.1-12.7) SECONDS INR 2.0 H (0.9-1.3) APTT 37 H D (26.4-36.2) SECONDS Sodium 133 L (137-145) mmol/L Potassium 4.1 (3.4-5.1) mmol/L Chloride 100 (98-107) mmol/L Carbon Dioxide 26 (22-32) mmol/L BUN 11 (7-17) mg/dL Creatinine 1.14 H (0.52-1.04) mg/dL Estimated GFR 45.6 L (>60) mL/min BUN/Creatinine Ratio 9.6 (6-22) Glucose 129 H (80-110) mg/dL Calcium 9.6 (8.4-10.2) mg/dL Total Bilirubin 0.5 (0.2-1.3) mg/dL AST 33 (14-36) IU/L ALT 11 (<35) IU/L Alkaline Phosphatase 126 (38-126) U/L NT-Pro-B Natriuret Pep (<450) pg/mL Total Protein 7.7 (6.3-8.2) g/dL Albumin 3.9 (3.5-5.0) g/dL Globulin 3.8 (1.7-4.1) g/dL Albumin/Globulin Ratio 1.0 (1.0-2.8) Lipase 43 (23-300) U/L 06/06/ Range/Units 19:16 WBC (4.5-11.0) X10^3/uL RBC (4.0-5.2) X10^6/uL Hgb (12.0-16.0) g/dL Hct (36-46) % MCV (80-100) fL MCH (26-34) PG MCHC (30-36) % RDW (11.6-14.8) % Plt Count (150-400) X10^3/uL Neut % (Auto) (50-75) % Lymph % (Auto) (25-40) % [place] % (Auto) (3-14) % Eos % (Auto) (2-4) % Baso % (Auto) (0-2) % Neut # (Auto) (3718-4268) /uL Lymph # (Auto) (1198-4368) /uL [place] # (Auto) (0-900) /uL Eos # (Auto) (0-450) /uL Baso # (Auto) (0-100) /uL PT (10.1-12.7) SECONDS INR (0.9-1.3) APTT (26.4-36.2) SECONDS Sodium (137-145) mmol/L Potassium (3.4-5.1) mmol/L Chloride (98-107) mmol/L Carbon Dioxide (22-32) mmol/L BUN (7-17) mg/dL Creatinine (0.52-1.04) mg/dL Estimated GFR (>60) mL/min BUN/Creatinine Ratio (6-22) Glucose (80-110) mg/dL Calcium (8.4-10.2) mg/dL Total Bilirubin (0.2-1.3) mg/dL AST (14-36) IU/L ALT (<35) IU/L Alkaline Phosphatase (38-126) U/L NT-Pro-B Natriuret Pep 972 H (<450) pg/mL Total Protein (6.3-8.2) g/dL Albumin (3.5-5.0) g/dL Globulin (1.7-4.1) g/dL Albumin/Globulin Ratio (1.0-2.8) Lipase (23-300) U/L Point of care testing: Urine Dip Bedside Urine Glucose Negative Bedside Urine Bilirubin - Negative Bedside Urine Ketone - Negative Urine Specific Ducor 1.015 Bedside Urine Occult Blood - Negative Bedside Urine pH 6.0 Bedside Urine Protein - Negative Bedside Urine Urobilinogen - Negative Bedside Urine Nitrite - Negative Bedside Urine Leukocytes - Negative Esterase Imaging Data CT scan - abdomen/pelvis: Radiologist's Impression: FINDINGS: Image quality: Excellent. ABDOMEN: Lung bases: Lung bases are clear. Heart size is mildly prominent. Solid organs: Liver is normal in size and enhancement. Steatosis is present. Gallbladder is unremarkable. Biliary system is non dilated. Pancreas enhances normally. Spleen is normal in size and enhancement. No adrenal nodules. Kidneys demonstrate normal size and enhancement, without hydronephrosis. Peritoneum and bowel: Bowel loops demonstrate normal wall thickness and caliber. No free fluid or air. Moderate scattered stool is present prominently in the ascending and transverse colon. Nodes and vessels: No retroperitoneal or mesenteric adenopathy by size criteria. Aorta and inferior vena cava are normal in size. Miscellaneous: No ventral hernias. PELVIS: Genitourinary: Bladder wall thickness is normal. Miscellaneous: No inguinal hernias or adenopathy. Bones: No suspicious bony lesions. No vertebral body compression fractures. IMPRESSION: 1. No visualized acute abdominal or pelvic process. 2. Moderate stool particularly within the right hemiabdomen. Dictated by: Janelle Fu M.D. on 06/06/2020 at 21:03 MDM Narrative Medical decision making narrative: 84-year-old woman with a history of constipation and increased abdominal pain. CT scan shows no significant pathologic finding including abscess, infection, surgical abnormality or obstruction. She does have a noted amount of stool throughout the entire colon. Discussed using a bottle of magnesium citrate when she gets home along with her continued bowel regimen to try to encourage more complete emptying of her bowels and help with the current abdominal pain. She is safe for return to her detention facility Discharge Plan Departure Patient Disposition: Home Clinical Impression: Abdominal pain Qualifiers: Abdominal location: generalized Qualified Code(s): R10.84 - Generalized abdominal pain Constipation Qualifiers: Constipation type: unspecified constipation type Qualified Code(s): K59.00 - Constipation, unspecified Instructions: DI for Constipation Activity Restrictions/Additional Instructions: Thank you for coming in today Fortunately, we did not find a life-threatening cause for your abdominal pain. You are moderately constipated and I suspect that that is contributing to your pain. In the morning, please drink the entire bottle of magnesium citrate and expect to have quite a bit of poop If things get worse feel free to return to the ER Prescriptions: No Action gabapentin 300 mg Capsule 300 mg PO BID RF: 0 metoprolol succinate 50 mg tablet extended release 24 hr 50 mg PO DAILY RF: 0 aspirin 81 mg Tablet,Delayed Release (Dr/Ec) 81 mg PO DAILY RF: 0 gabapentin 600 mg Tablet 600 mg PO BEDTIME RF: 0 diltiazem HCl 180 mg capsule,extended release 24hr 180 mg PO DAILY RF: 0 nystatin 100,000 unit/gram Powder 1 applic TOPICAL BID RF: 0 escitalopram oxalate 20 mg tablet 20 mg PO DAILY RF: 0 potassium chloride 10 mEq Tablet Extended Release 10 meq PO QPM RF: 0 omeprazole 20 mg capsule,delayed release(DR/EC) 20 mg PO DAILY RF: 0 polyethylene glycol 3350 17 gram Powder In Packet 17 gm PO DAILY Qty: 1 RF: 0 furosemide 20 mg Tablet 20 mg PO DAILY RF: 0 Amitiza 24 mcg Capsule 24 mcg PO DAILY RF: 0 doxepin 100 mg Capsule 100 mg PO BEDTIME RF: 0 oxycodone 5 mg tablet 5 - 10 mg PO Q4H PRN (Reason: pain) Qty: 50 RF: 0 rosuvastatin 40 mg Tablet 40 mg PO DAILY RF: 0 cholecalciferol (vitamin D3) [Vitamin D3] 2,000 unit Tablet 2,000 unit PO DAILY RF: 0 Xarelto 20 mg Tablet 20 mg PO DAILY RF: 0 acetaminophen 325 mg tablet 325 mg PO Q6H PRN (Reason: Pain) RF: 0 calcium carbonate [Oyster Shell Calcium 500] 500 mg calcium (1,250 mg) Tablet 500 mg PO DAILY RF: 0 ciprofloxacin HCl 500 mg tablet 500 mg PO Q12H Qty: 14 RF: 0 Referrals: Carissa Chen MD [Primary Care Provider] -
--- NOTE | 2020-06-06 20:28 | DI.CT.S_ITS ---
PROCEDURE: CT ABDOMEN PELVIS W CON INDICATIONS: abdominal pain, periumbilical to right side TECHNIQUE: After the administration of intravenous contrast, 5 mm thick sections acquired from the diaphragm to the symphysis. 5 mm coronal and sagittal reformats were acquired. For radiation dose reduction, the following was used: automated exposure control, adjustment of mA and/or kV according to patient size. COMPARISON: None. FINDINGS: Image quality: Excellent. ABDOMEN: Lung bases: Lung bases are clear. Heart size is mildly prominent. Solid organs: Liver is normal in size and enhancement. Steatosis is present. Gallbladder is unremarkable. Biliary system is non dilated. Pancreas enhances normally. Spleen is normal in size and enhancement. No adrenal nodules. Kidneys demonstrate normal size and enhancement, without hydronephrosis. Peritoneum and bowel: Bowel loops demonstrate normal wall thickness and caliber. No free fluid or air. Moderate scattered stool is present prominently in the ascending and transverse colon. Nodes and vessels: No retroperitoneal or mesenteric adenopathy by size criteria. Aorta and inferior vena cava are normal in size. Miscellaneous: No ventral hernias. PELVIS: Genitourinary: Bladder wall thickness is normal. Miscellaneous: No inguinal hernias or adenopathy. Bones: No suspicious bony lesions. No vertebral body compression fractures. IMPRESSION: 1. No visualized acute abdominal or pelvic process. 2. Moderate stool particularly within the right hemiabdomen. Dictated by: Janelle Fu M.D. on 06/06/2020 at 21:03 Approved by: Janelle Fu M.D. on 06/06/2020 at 21:08
[2020-06-06 20:56] VITALS: PULSE 84; RESP 17; O2SAT 98
[2020-06-06 21:00] VITALS: BP 129/85; PULSE 92; RESP 22; O2SAT 98
[2020-06-06 21:30] VITALS: BP 137/75; PULSE 85; RESP 22; O2SAT 97
[2020-06-06 22:11] LABS: NT-proBNP (BNP-Adult 18+) 972 pg/mL (<450)
[2020-06-06] MEDS: MAGNESIUM CITRATE 300 ML SOLUTION PO (22:31)
[2020-06-06 22:40] VITALS: BP 144/64; PULSE 88; RESP 14; O2SAT 95
== END 2020-06-06 22:42 | disposition home or self-care (01) ==
PROVIDERS: Emergency Provider Emergency Medicine; Family Provider Internal Medicine; PCP Internal Medicine
DX: R10.84 Generalized abdominal pain (principal); K59.00 Constipation, unspecified
CPT/HCPCS: 36415; 74177; 80053; 81003; 83690; 83880; 85025; 85610; 85730; 99284; Q9967

== ENCOUNTER 2020-06-25 22:25 | Emergency (ER) | payer OTHER, SELFPAY ==
[2020-06-25 22:29] VITALS: PULSE 95; RESP 29; O2SAT 96
[2020-06-25 22:30] VITALS: BP 118/72; PULSE 101; RESP 28; O2SAT 93
[2020-06-25 22:38] VITALS: BP 118/72; PULSE 95; RESP 15; TEMP 36.5; O2SAT 91; BMI 38.0
[2020-06-25 23:00] VITALS: BP 109/64; PULSE 87; RESP 17; O2SAT 92
[2020-06-25 23:30] VITALS: BP 121/80; PULSE 95; RESP 17; O2SAT 94
--- NOTE | 2020-06-25 23:49 | DI.CT.S_ITS ---
PROCEDURE: CT HEAD/BRAIN WO CON INDICATIONS: head injury on blood thinners TECHNIQUE: Noncontrast 4.5 mm thick angled axial sections acquired from the foramen magnum to the vertex, with coronal and sagittal reformats. For radiation dose reduction, the following was used: automated exposure control, adjustment of mA and/or kV according to patient size. COMPARISON: [facility], CT, CT HEAD/BRAIN WO CON, 02/22/2020, 19:07. FINDINGS: Image quality: Excellent. CSF spaces: Basal cisterns are patent. No extra-axial fluid collections. The ventricles are symmetric in size and shape. Brain: No intracranial bleeds or masses. There is cerebral volume loss for age, with resultant ventricular and sulcal prominence. There are periventricular and deep white matter chronic small vessel ischemic changes. Chronic left rodriges radiata lacunar infarct is stable. There is intracranial internal carotid artery and vertebral artery atherosclerosis. Skull and face: Calvarium and visualized facial bones appear intact, without suspicious lesions. Sinuses: Visualized sinuses and mastoids are clear. IMPRESSION: No acute intracranial disease process. Dictated by: Abigail Sands MD, PhD on 06/26/2020 at 7:22 Approved by: Abigail Sands MD, PhD on 06/26/2020 at 7:25
[2020-06-26 00:09] VITALS: PULSE 111; O2SAT 92
[2020-06-26 00:30] VITALS: PULSE 100; RESP 21; O2SAT 94
--- NOTE | 2020-06-26 00:48 | ED.FALL ---
HPI - Fall General Chief Complaint: Fall Stated Complaint: Fall/on blood thinners Time Seen by Provider: 06/26/20 00:21 Source: EMS Mode of arrival: EMS Limitations: no limitations History of Present Illness HPI Narrative: This is an 84-year-old female who had a ground level mechanical fall while transferring. Patient does have a history of dementia. She states that she was trying to get out of bed, she did scrape her right side of her abdomen. She also states that she thinks she hit her head. She does take Xarelto daily. She states she has chronic pain. She complains of pain all over her body. but denies that anything is significantly worse than normal. Patient states that she often has difficulty with transfers and falls often. Related Data Home Medications Medication Instructions Recorded Confirmed gabapentin 300 mg PO BID 08/07/17 03/13/19 Amitiza 24 mcg PO DAILY 12/07/17 03/13/19 furosemide 20 mg PO DAILY 12/07/17 03/13/19 aspirin 81 mg PO DAILY 12/26/17 03/13/19 metoprolol succinate 50 mg PO DAILY 12/26/17 03/13/19 doxepin 100 mg PO BEDTIME 01/23/18 03/13/19 diltiazem HCl 180 mg PO DAILY 10/10/18 03/13/19 escitalopram oxalate 20 mg PO DAILY 10/10/18 03/13/19 gabapentin 600 mg PO BEDTIME 10/10/18 03/13/19 nystatin 1 applic TOPICAL BID 10/10/18 03/13/19 omeprazole 20 mg PO DAILY 10/10/18 03/13/19 potassium chloride 10 meq PO QPM 10/10/18 03/13/19 Xarelto 20 mg PO DAILY 01/09/19 03/13/19 acetaminophen 325 mg PO Q6H PRN 01/09/19 03/13/19 calcium carbonate [Oyster Shell 500 mg PO DAILY 01/09/19 03/13/19 Calcium 500] cholecalciferol (vitamin D3) 2,000 unit PO DAILY 01/09/19 03/13/19 [Vitamin D3] rosuvastatin 40 mg PO DAILY 01/09/19 03/13/19 Previous Rx's Medication Instructions Recorded polyethylene glycol 3350 17 gm PO DAILY #1 pkg 10/13/18 oxycodone 5 - 10 mg PO Q4H PRN #50 tab 01/09/19 ciprofloxacin HCl 500 mg PO Q12H #14 tab 03/13/19 Allergies Allergy/AdvReac Type Severity Reaction Status Date / Time Sulfa (Sulfonamide Allergy Intermediate Rash Verified 02/24/20 08:06 Antibiotics) Review of Systems Review of Systems ROS Unobtainable: All systems reviewed & are unremarkable except as noted in HPI and below Patient History Medical History (Updated 06/26/20 @ 01:03 by Zoe Estrella DO) Chronic pain Dementia Depression GERD (gastroesophageal reflux disease) Herpes encephalitis History of lumbar puncture (08/29/18) Hyperlipidemia Hypertension Hypoxia (10/10/18) Impaired fasting glucose Pulmonary fibrosis Stroke Surgical History History of ankle surgery (10/11/18) Social History details: two years ago number of children: 2 household members: none lives independently: Yes caregiver/support person: Yes housing: apartment other: Denies alcohol drinking or cigarette smoking. Her son of overdose 1 w Smoking Status: Former smoker alcohol intake: current Smoking Status: Former smoker alcohol intake frequency: holidays/special occasions only Substance Use Type: does not use Exam Narrative Exam Narrative: GEN: Patient appears in mild distress. HEAD: No evidence of trauma, no raccoon/Fitch sign. NECK: Nontender, painless range of motion, trachea midline EYES: PERRLA, EOMI ENT: External inspection normal, trachea is midline, TM's are normal no hemotypanum, Nares are clear, no septal hematoma, no dental or oral injury, airway is normal and with normal occlusion, No bony tenderness RESP: Chest is nontender and has symmetric movement, no ecchymosis, breath sounds are normal no crackles, wheezes or rales CVS: Heart sounds are normal, no murmur noted, No JVD. ABG/GI: Nontender, soft, normal bowel sounds, no distention, no organomegaly, pelvic rock is negative NEURO: Oriented AOx3, neuro is grossly intact, sensation and motor is normal all 4 extremities moving, cranial nerves II through XII are intact, GCS is 15 PSYCH: Normal mood and affect SKIN: Patient has large abrasion 4x9cm on right lower abdomen which is covered by her pannus, no laceration, there is a mild amount of serous drainage. No purulence drainage, no foul order, no other erythema appreciated. Warm and dry, no crepitus and without decubitus BACK: No CVA tenderness, no vertebral tenderness, no step-off's, no crepitus EXT: Atraumatic, hips are nontender, no pedal edema, normal color and temperature, 2+ pulses bilateral lower extremities. Patient has difficulty standing but is able to bear weight. She states this is typical. Initial Vital Signs Initial Vital Signs: Vital Signs Pulse Rate 95 H 06/25/20 22:29 Respiratory Rate 29 H 06/25/20 22:29 Pulse Oximetry 96 06/25/20 22:29 Scores GCS Gurpreet coma scale eye opening: Spontaneous Gurpreet coma scale verbal response: Orientated Gurpreet coma scale motor response: Obey commands [place] coma scale total score: 15 Course Orders Ordered: ED Orders 06/25/20 23:49 CT head/brain wo con Stat Vital Signs Vital signs: Vital Signs - 8 hr 06/25/20 22:29 06/25/20 22:30 06/25/20 22:38 Temperature 97.7 F Pulse Rate 95 H 101 H 95 H Respiratory Rate 29 H 28 H 15 Blood Pressure 118/72 118/72 Pulse Oximetry 96 93 91 06/25/20 23:00 06/25/20 23:30 06/26/20 00:09 Temperature Pulse Rate 87 95 H 111 H Respiratory Rate 17 17 Blood Pressure 109/64 121/80 Pulse Oximetry 92 94 92 06/26/20 00:30 Temperature Pulse Rate 100 H Respiratory Rate 21 Blood Pressure Pulse Oximetry 94 [facility] - Fall Imaging Data CT scan - head: Radiologist's Impression: No acute hemorrhage. No extra-axial fluid collection. No hydrocephalus. Mass effect or herniation. Wyman-white differentiation is maintained. There is patchy hypoattenuation in the periventricular and deep white matter which is most likely the sequela of mild chronic small-vessel ischemic disease. Nor orbital pathology no acute soft tissue abnormality. No fracture. The paired visualized paranasal sinuses are predominantly clear. Mastoid air cells are clear. Impression no acute findings. [facility] Narrative Medical decision making narrative: This is an 84 year old female with mechanical ground level fall on [employer]. Patient does believe she hit her head. She also has an abrasion on her abdomen. Patient's head CT is negative. Plan for wound care for abrasion. This is somewhat high risk for infection as it is covered up by her pannus. Patient does not have any other acute findings on physical exam or other acute complaints at this time. Discharge Plan Departure Patient Disposition: Home Clinical Impression: Fall from ground level, Abdominal wall abrasion, Head injury Activity Restrictions/Additional Instructions: Follow up with recheck of your abdominal abrasion/wound in the next 24-48 hours. The area should be checked daily for evaluation. Wound Care: Keep wound(s) clean and dry. Wash daily with soap and water only. Pat dry afterwards. I would recommend leaving a nonstick dressing or similar dressing to protect the skin. Do not use over the counter products (alcohol or peroxide)on the wounds unless instructed by a physician. If wound condition worsens (increased/expanding redness, developing fluid blisters, or worsening pain), either contact your doctor for an urgent re-assessment , or return to the Emergency Department. Return to the Emergency Department for any new or worsening symptoms. Return if fever greater than 100.4 Fahrenheit, increased swelling, increasing pain or worsening symptoms such as increased discharge or spreading redness. New or sudden alterations in mental status, unresponsiveness, severe headaches, new chest pain, shortness of breath, persistent vomiting, signs of infection at the site of abrasion, new weakness, loss of sensation or other new or concerning symptoms. Prescriptions: No Action gabapentin 300 mg Capsule 300 mg PO BID RF: 0 metoprolol succinate 50 mg tablet extended release 24 hr 50 mg PO DAILY RF: 0 aspirin 81 mg Tablet,Delayed Release (Dr/Ec) 81 mg PO DAILY RF: 0 gabapentin 600 mg Tablet 600 mg PO BEDTIME RF: 0 diltiazem HCl 180 mg capsule,extended release 24hr 180 mg PO DAILY RF: 0 nystatin 100,000 unit/gram Powder 1 applic TOPICAL BID RF: 0 escitalopram oxalate 20 mg tablet 20 mg PO DAILY RF: 0 potassium chloride 10 mEq Tablet Extended Release 10 meq PO QPM RF: 0 omeprazole 20 mg capsule,delayed release(DR/EC) 20 mg PO DAILY RF: 0 polyethylene glycol 3350 17 gram Powder In Packet 17 gm PO DAILY Qty: 1 RF: 0 furosemide 20 mg Tablet 20 mg PO DAILY RF: 0 Amitiza 24 mcg Capsule 24 mcg PO DAILY RF: 0 doxepin 100 mg Capsule 100 mg PO BEDTIME RF: 0 oxycodone 5 mg tablet 5 - 10 mg PO Q4H PRN (Reason: pain) Qty: 50 RF: 0 rosuvastatin 40 mg Tablet 40 mg PO DAILY RF: 0 cholecalciferol (vitamin D3) [Vitamin D3] 2,000 unit Tablet 2,000 unit PO DAILY RF: 0 Xarelto 20 mg Tablet 20 mg PO DAILY RF: 0 acetaminophen 325 mg tablet 325 mg PO Q6H PRN (Reason: Pain) RF: 0 calcium carbonate [Oyster Shell Calcium 500] 500 mg calcium (1,250 mg) Tablet 500 mg PO DAILY RF: 0 ciprofloxacin HCl 500 mg tablet 500 mg PO Q12H Qty: 14 RF: 0 Referrals: Carissa Chen MD [Primary Care Provider] -
--- NOTE | 2020-06-26 01:01 | PC.NURSE ---
full 2 person assist
== END 2020-06-26 01:26 | disposition home or self-care (01) ==
PROVIDERS: Emergency Provider Emergency Medicine; Family Provider Internal Medicine; PCP Internal Medicine
DX: S09.90XA Unspecified injury of head, initial encounter (principal); S30.811A Abrasion of abdominal wall, initial encounter; W18.30XA Fall on same level, unspecified, initial encounter
CPT/HCPCS: 70450; 99283

== ENCOUNTER → 2020-08-09 06:10 | Outpatient (ROUT) | payer OTHER, SELFPAY ==
[2020-08-09 06:20] LABS: Appearance Urine UA CLEAR; Bilirubin Urine UA NEGATIVE (NEGATIVE); Color Urine UA YELLOW; Glucose Urine UA NEGATIVE (Negative); Ketones Urine UA NEGATIVE (NEGATIVE); Leukocyte Esterase Urine UA 1+ (NEGATIVE); Nitrite Urine UA NEGATIVE (Negative); Occult Blood Urine UA 1+ (Negative); Protein Urine UA NEGATIVE (Negative)
[2020-08-09 06:35] LABS: pH Urine UA 6.5 (4.5-8.0)
[2020-08-09 06:38] LABS: Bacteria Urine Few (2-10); Culture Indicated Urine Specimen Cultured; RBC Urine 1-5/HPF (0-5/HPF); Squamous Epithelial Cell Urine 1-5 /HPF (0-5/HPF); WBC Urine 1-5/HPF (0-5/HPF)
== END ==
PROVIDERS: Family Provider Internal Medicine; PCP Internal Medicine; Visit Provider Internal Medicine
DX: R41.0 Disorientation, unspecified (principal); R53.1 Weakness
CPT/HCPCS: 81001; 87086

== ENCOUNTER 2020-09-05 00:05 | Emergency (ER) | payer OTHER, SELFPAY ==
[2020-09-05] VITALS (10 sets, daily range): BP systolic 104–124; BP diastolic 54–83; PULSE 80–105; RESP 16; TEMP 37.1; O2SAT 95–99; BMI 27.3
--- NOTE | 2020-09-05 00:37 | ED.FALL ---
HPI - Fall General Chief Complaint: Fall Stated Complaint: stomach pain Time Seen by Provider: 09/05/20 00:27 Source: patient Mode of arrival: Wheelchair Limitations: no limitations History of Present Illness HPI Narrative: Patient is an 84-year-old female who was brought over from her assisted living facility for evaluation of injuries that she sustained when his reported that she had a ground level fall yesterday. She did not hit her head. This apparently was unwitnessed however there were reports that she potentially slid out of her wheelchair. Since that time she has had pain all over specifically pain in her abdomen. She also describes urinary frequency in her urgency and dysuria. She is on blood thinners. The medications that she was receiving at the facility did not seem to be helping her symptoms. Related Data Home Medications Medication Instructions Recorded Confirmed gabapentin 300 mg PO BID 08/07/17 03/13/19 Amitiza 24 mcg PO DAILY 12/07/17 03/13/19 furosemide 20 mg PO DAILY 12/07/17 03/13/19 aspirin 81 mg PO DAILY 12/26/17 03/13/19 metoprolol succinate 50 mg PO DAILY 12/26/17 03/13/19 doxepin 100 mg PO BEDTIME 01/23/18 03/13/19 diltiazem HCl 180 mg PO DAILY 10/10/18 03/13/19 escitalopram oxalate 20 mg PO DAILY 10/10/18 03/13/19 gabapentin 600 mg PO BEDTIME 10/10/18 03/13/19 nystatin 1 applic TOPICAL BID 10/10/18 03/13/19 omeprazole 20 mg PO DAILY 10/10/18 03/13/19 potassium chloride 10 meq PO QPM 10/10/18 03/13/19 Xarelto 20 mg PO DAILY 01/09/19 03/13/19 acetaminophen 325 mg PO Q6H PRN 01/09/19 03/13/19 calcium carbonate [Oyster Shell 500 mg PO DAILY 01/09/19 03/13/19 Calcium 500] cholecalciferol (vitamin D3) 2,000 unit PO DAILY 01/09/19 03/13/19 [Vitamin D3] rosuvastatin 40 mg PO DAILY 01/09/19 03/13/19 Previous Rx's Medication Instructions Recorded polyethylene glycol 3350 17 gm PO DAILY #1 pkg 07/20/19 oxycodone 5 - 10 mg PO Q4H PRN #50 tab 01/09/19 ciprofloxacin HCl 500 mg PO Q12H #14 tab 03/13/19 Allergies Allergy/AdvReac Type Severity Reaction Status Date / Time Sulfa (Sulfonamide Allergy Intermediate Rash Verified 02/24/20 08:06 Antibiotics) Review of Systems Constitutional Comments: Generalized pain Cardiovascular Cardiovascular: Reports system reviewed and no additional complaints, except as documented Respiratory Respiratory: Reports system reviewed and no additional complaints, except as documented Gastrointestinal Gastrointestinal: Reports abdominal pain and Denies change in bowel habits Genitourinary Genitourinary: Reports dysuria and Reports urinary urgency Genitourinary: Reports dysuria and Reports urinary urgency Musculoskeletal Comments: Generalized pain Integumentary/Breasts Skin/Breast: Reports system reviewed and no additional complaints, except as documented Neurologic Neurologic: Reports system reviewed and no additional complaints, except as documented Hematologic/Lymphatic On Anticoagulants: No Allergic/Immunologic Allergic/Immunologic: Reports system reviewed and no additional complaints, except as documented Patient History Medical History Chronic pain Dementia Depression GERD (gastroesophageal reflux disease) Herpes encephalitis History of lumbar puncture (08/29/18) Hyperlipidemia Hypertension Hypoxia (10/10/18) Impaired fasting glucose Pulmonary fibrosis Stroke Surgical History History of ankle surgery (10/11/18) Social History details: two years ago number of children: 2 household members: none lives independently: Yes caregiver/support person: Yes housing: apartment other: Denies alcohol drinking or cigarette smoking. Her son of overdose 1 w Smoking Status: Former smoker alcohol intake: current Smoking Status: Former smoker alcohol intake frequency: holidays/special occasions only Substance Use Type: does not use Exam Initial Vital Signs Initial Vital Signs: Vital Signs Temperature 98.7 F 09/05/20 00:27 Pulse Rate 96 H 09/05/20 00:27 Respiratory Rate 16 09/05/20 00:27 Blood Pressure 104/71 09/05/20 00:27 Pulse Oximetry 98 09/05/20 00:27 Const General: cooperative Limitations: mental status not altered HENAK Head: normal to inspection and normocephalic Resp Effort & Inspection: normal respiratory effort Auscultation: clear to auscultation bilaterally Cardio Rate: regular rate Rhythm: regular rhythm GI Inspection: non-distended Palpation: soft and tender (Generalized tenderness however specifically on left side) Skin Lesions: no lesions Rashes: no rashes Neuro General: patient alert and patient awake Speech: speech normal Extrem General: normal to inspection and capillary refill normal Psych Appearance: grossly normal and well kempt Course Orders Ordered: ED Orders 09/05/20 00:39 CT abdomen pelvis w con Stat 09/05/20 00:49 Complete Blood Count AUTO DIFF Stat Comprehensive Metabolic Panel Stat Lipase Stat Vital Signs Vital signs: Vital Signs - 8 hr 09/05/20 00:27 Temperature 98.7 F Pulse Rate 96 H Respiratory Rate 16 Blood Pressure 104/71 Pulse Oximetry 98 MDM - Fall Lab Data Attestation: I reviewed the patient's lab results. Result diagrams: 09/05/20 00:49 09/05/20 00:49 Labs: Lab Results 09/05/20 09/05/20 Range/Units 00:49 00:49 WBC 13.0 H (4.5-11.0) X10^3/uL RBC 4.04 (4.0-5.2) X10^6/uL Hgb 9.0 L (12.0-16.0) g/dL Hct 28.9 L (36-46) % MCV 71.5 L (80-100) fL MCH 22.2 L (26-34) PG MCHC 31.0 (30-36) % RDW 16.9 H (11.6-14.8) % Plt Count 377 (150-400) X10^3/uL Neut % (Auto) 67.2 (50-75) % Lymph % (Auto) 21.1 L (25-40) % [place] % (Auto) 9.1 (3-14) % Eos % (Auto) 2.2 (2-4) % Baso % (Auto) 0.4 (0-2) % Neut # (Auto) 8700 H (1425-8147) /uL Lymph # (Auto) 2700 (6205-6194) /uL [place] # (Auto) 1200 H (0-900) /uL Eos # (Auto) 300 (0-450) /uL Baso # (Auto) 100 (0-100) /uL Sodium 138 (137-145) mmol/L Potassium 3.2 L (3.4-5.1) mmol/L Chloride 100 (98-107) mmol/L Carbon Dioxide 30 (22-32) mmol/L BUN 14 (7-17) mg/dL Creatinine 1.31 H (0.52-1.04) mg/dL Estimated GFR 38.9 L (>60) mL/min BUN/Creatinine Ratio 10.7 (6-22) Glucose 147 H (80-110) mg/dL Calcium 9.4 (8.4-10.2) mg/dL Total Bilirubin 0.6 (0.2-1.3) mg/dL AST 29 (14-36) IU/L ALT 13 (<35) IU/L Alkaline Phosphatase 125 (38-126) U/L Total Protein 7.4 (6.3-8.2) g/dL Albumin 3.7 (3.5-5.0) g/dL Globulin 3.7 (1.7-4.1) g/dL Albumin/Globulin Ratio 1.0 (1.0-2.8) Lipase 34 (23-300) U/L Urine Dip Bedside Urine Glucose Negative Bedside Urine Bilirubin - Negative Bedside Urine Ketone - Negative Urine Specific [place] 1.010 Bedside Urine Occult Blood + Bedside Urine pH 7 Bedside Urine Protein - Negative Bedside Urine Urobilinogen - Negative Bedside Urine Nitrite - Negative Bedside Urine Leukocytes - Negative Esterase Imaging Data CT scan - abdomen/pelvis: Radiologist's Impression: Intramuscular hematoma in the left ilial psoas muscle MDM Narrative Medical decision making narrative: Patient's urinalysis shows no signs of an infection. She does have a slight leukocytosis however there is no signs of any infection. No indication for antibiotics just based on this finding. She does have generalized abdominal tenderness but specifically is on the left side. CT scan shows a hematoma in the iliac/psoas muscle. I suspect that this is the cause of her discomfort and I also suspect that it is from 1 of the multiple falls she has had recently and being on anticoagulation. Afebrile. Will discharge home without change any of her medications. She was given return precautions. She expressed understanding and agreement. Discharge Plan Departure Patient Disposition: Home Clinical Impression: Hematoma of psoas region due to anticoagulant therapy Instructions: How to Prevent Falls Activity Restrictions/Additional Instructions: I recommend that you continue all of your medications as directed. Contact your primary provider for a follow-up. It is important that you avoid falling in the future because the anticoagulation that you were on causes you to form bruises use your that is most likely what is causing your symptoms today. Return to the emergency department for any new or worsening symptoms Prescriptions: No Action gabapentin 300 mg Capsule 300 mg PO BID RF: 0 metoprolol succinate 50 mg tablet extended release 24 hr 50 mg PO DAILY RF: 0 aspirin 81 mg Tablet,Delayed Release (Dr/Ec) 81 mg PO DAILY RF: 0 gabapentin 600 mg Tablet 600 mg PO BEDTIME RF: 0 diltiazem HCl 180 mg capsule,extended release 24hr 180 mg PO DAILY RF: 0 nystatin 100,000 unit/gram Powder 1 applic TOPICAL BID RF: 0 escitalopram oxalate 20 mg tablet 20 mg PO DAILY RF: 0 potassium chloride 10 mEq Tablet Extended Release 10 meq PO QPM RF: 0 omeprazole 20 mg capsule,delayed release(DR/EC) 20 mg PO DAILY RF: 0 polyethylene glycol 3350 17 gram Powder In Packet 17 gm PO DAILY Qty: 1 RF: 0 furosemide 20 mg Tablet 20 mg PO DAILY RF: 0 Amitiza 24 mcg Capsule 24 mcg PO DAILY RF: 0 doxepin 100 mg Capsule 100 mg PO BEDTIME RF: 0 oxycodone 5 mg tablet 5 - 10 mg PO Q4H PRN (Reason: pain) Qty: 50 RF: 0 rosuvastatin 40 mg Tablet 40 mg PO DAILY RF: 0 cholecalciferol (vitamin D3) [Vitamin D3] 2,000 unit Tablet 2,000 unit PO DAILY RF: 0 Xarelto 20 mg Tablet 20 mg PO DAILY RF: 0 acetaminophen 325 mg tablet 325 mg PO Q6H PRN (Reason: Pain) RF: 0 calcium carbonate [Oyster Shell Calcium 500] 500 mg calcium (1,250 mg) Tablet 500 mg PO DAILY RF: 0 ciprofloxacin HCl 500 mg tablet 500 mg PO Q12H Qty: 14 RF: 0
--- NOTE | 2020-09-05 00:39 | DI.CT.S_ITS ---
PROCEDURE: CT ABDOMEN PELVIS W CON INDICATIONS: Left-sided abdominal pain TECHNIQUE: After the administration of intravenous contrast, axial sections acquired from the lung bases to the pubic symphysis. Coronal and sagittal reformats were performed. For radiation dose reduction, the following was used: automated exposure control, adjustment of mA and/or kV according to patient size. COMPARISON: [facility], CT, CT ABDOMEN PELVIS W CON, 06/06/2020, 20:32. FINDINGS: Image quality: Excellent. Lung bases: Unremarkable. A small hiatal hernia is incidentally noted. Heart: No significant findings. ABDOMEN: Liver: Unremarkable. Gallbladder: Demonstrates layering sludge within its lumen Biliary ducts: Unremarkable. Pancreas: Unremarkable. Spleen: Unremarkable. Incidental note is made of an accessory splenule along the hilum of the primary spleen. Adrenal Glands: Unremarkable. Kidneys and Ureters: Unremarkable. Stomach and Bowel: Stomach, small bowel loops, and colon are unremarkable. Peritoneum: No abnormal intraperitoneal fluid. No free air. Ventral Wall: No hernias. Abdominal Nodes: No retroperitoneal or mesenteric adenopathy by size criteria. Vessels: Aorta and inferior vena cava are normal in size. Atherosclerotic calcification is noted. PELVIS: Pelvic Organs: This patient is status post hysterectomy. No adnexal masses are seen. Bladder: Unremarkable. Pelvic Nodes: Prominent bilateral groin lymph nodes are seen, left larger than right. Miscellaneous: Focal inflammatory change can be seen along the left iliacus and left ileus psoas muscle, with muscle border irregularity and mild fatty stranding. No focal abscess is seen. Bones: Degenerative changes are seen throughout, which are most prominent within the lower lumbar spine. IMPRESSION: Inflammatory change can be seen of the left iliacus and iliopsoas, without an abscess seen. This may be related to a hematoma. Prominent bilateral groin lymph nodes are seen, left larger than right. Incidental note is made of: Small hiatal hernia Layering sludge can be seen within the gallbladder lumen Accessory splenule Hysterectomy Note: No significant discrepancy from the preliminary report. Dictated by: Wilian Rivas M.D. on 09/05/2020 at 8:59 Approved by: Wilian Rivas M.D. on 09/05/2020 at 9:05
[2020-09-05 00:57] LABS: Add Manual Diff / Slide Review NO; Basophils Absolute Auto 100 /uL (0-100); Basophils Percent Auto 0.4 % (0-2); Eosinophils Absolute Auto 300 /uL (0-450); Eosinophils Percent Auto 2.2 % (2-4); Hematocrit 28.9 % (36-46); Lymphocytes Absolute Auto 2700 /uL (1100-4500); Lymphocytes Percent Auto 21.1 % (25-40); Mean Corpuscular Hemoglobin 22.2 PG (26-34); Mean Corpuscular Volume 71.5 fL (80-100); Monocytes Absolute Auto 1200 /uL (0-900); Monocytes Percent Auto 9.1 % (3-14); Neutrophils Absolute Auto 8700 /uL (1500-7000); Neutrophils Percent Auto 67.2 % (50-75); Platelet Count 377 X10^3/uL (150-400); Red Blood Cell Count 4.04 X10^6/uL (4.0-5.2); Red Cell Distribution Width 16.9 % (11.6-14.8)
[2020-09-05 01:05] LABS: Alanine Aminotransferase 13 IU/L (<35); Albumin 3.7 g/dL (3.5-5.0); Alkaline Phosphatase 125 U/L (38-126); Aspartate Aminotransferase 29 IU/L (14-36); BUN Creatinine Ratio 10.7 (6-22); Bilirubin Total 0.6 mg/dL (0.2-1.3); Blood Urea Nitrogen 14 mg/dL (7-17); Calcium 9.4 mg/dL (8.4-10.2); Carbon Dioxide 30 mmol/L (22-32); Chloride 100 mmol/L (98-107); Estimated Glomerular Filt Rate 38.9 mL/min (>60); Globulin 3.7 g/dL (1.7-4.1); Glucose 147 mg/dL (80-110); HEMOLYSIS < 15 (0-50); Lipase 34 U/L (23-300); Potassium 3.2 mmol/L (3.4-5.1); Sodium 138 mmol/L (137-145); Total Protein 7.4 g/dL (6.3-8.2)
== END 2020-09-05 04:11 | disposition home or self-care (01) ==
PROVIDERS: Emergency Provider Emergency Medicine; Family Provider Internal Medicine
DX: S30.1XXA Contusion of abdominal wall, initial encounter (principal); R30.0 Dysuria; Z79.01 Long term (current) use of anticoagulants; W19.XXXA Unspecified fall, initial encounter
CPT/HCPCS: 36415; 74177; 80053; 81003; 83690; 85025; 99283; 99284; Q9967

== ENCOUNTER → 2020-09-30 08:01 | Outpatient (ROUT) | payer OTHER, SELFPAY ==
[2020-09-30 08:23] LABS: Add Manual Diff / Slide Review NO; Basophils Absolute Auto 100 /uL (0-100); Basophils Percent Auto 0.8 % (0-2); Eosinophils Absolute Auto 400 /uL (0-450); Eosinophils Percent Auto 5.3 % (2-4); Hematocrit 25.5 % (36-46); Lymphocytes Absolute Auto 1700 /uL (1100-4500); Lymphocytes Percent Auto 22.2 % (25-40); Mean Corpuscular HGB Conc 31.5 % (30-36); Mean Corpuscular Hemoglobin 22.5 PG (26-34); Mean Corpuscular Volume 71.4 fL (80-100); Monocytes Absolute Auto 600 /uL (0-900); Monocytes Percent Auto 8.3 % (3-14); Neutrophils Absolute Auto 4900 /uL (1500-7000); Neutrophils Percent Auto 63.4 % (50-75); Platelet Count 370 X10^3/uL (150-400); Red Blood Cell Count 3.57 X10^6/uL (4.0-5.2); Red Cell Distribution Width 17.7 % (11.6-14.8); White Blood Cell Count 7.7 X10^3/uL (4.5-11.0)
[2020-09-30 08:49] LABS: BUN Creatinine Ratio 8.3 (6-22); Blood Urea Nitrogen 11 mg/dL (7-17); Calcium 9.3 mg/dL (8.4-10.2); Carbon Dioxide 31 mmol/L (22-32); Chloride 104 mmol/L (98-107); Estimated Glomerular Filt Rate 38.2 mL/min (>60); Glucose 108 mg/dL (80-110); HEMOLYSIS < 15 (0-50); Potassium 3.4 mmol/L (3.4-5.1); Sodium 139 mmol/L (137-145)
[2020-09-30 09:23] LABS: Thyroid Stimulating Hormone 2.65 uIU/mL (0.47-4.68)
[2020-09-30 09:39] LABS: Vitamin B12 319 pg/mL (239-931)
== END ==
PROVIDERS: Family Provider Internal Medicine; Visit Provider Nurse Practitioner Family
DX: D72.829 Elevated white blood cell count, unspecified (principal)
CPT/HCPCS: 36415; 80048; 82607; 84443; 85025

== ENCOUNTER → 2020-10-07 08:16 | Outpatient (ROUT) | payer OTHER, SELFPAY ==
[2020-10-07 08:40] LABS: Hematocrit 23.7 % (36-46); Hemoglobin 7.5 g/dL (12.0-16.0)
[2020-10-07 09:05] LABS: BUN Creatinine Ratio 11.6 (6-22); Blood Urea Nitrogen 14 mg/dL (7-17); Calcium 8.9 mg/dL (8.4-10.2); Carbon Dioxide 28 mmol/L (22-32); Chloride 105 mmol/L (98-107); Estimated Glomerular Filt Rate 42.6 mL/min (>60); Glucose 109 mg/dL (80-110); HEMOLYSIS < 15 (0-50); Potassium 3.4 mmol/L (3.4-5.1); Sodium 139 mmol/L (137-145)
== END ==
PROVIDERS: Family Provider Internal Medicine; Visit Provider Nurse Practitioner Family
DX: D64.9 Anemia, unspecified (principal); R60.9 Edema, unspecified
CPT/HCPCS: 36415; 80048; 85014; 85018

== ENCOUNTER → 2020-10-16 11:48 | Outpatient (ROUT) | payer OTHER, SELFPAY ==
[2020-10-16 12:07] LABS: Add Manual Diff / Slide Review NO; Basophils Absolute Auto 100 /uL (0-100); Basophils Percent Auto 0.7 % (0-2); Eosinophils Absolute Auto 300 /uL (0-450); Eosinophils Percent Auto 3.4 % (2-4); Hematocrit 27.9 % (36-46); Hemoglobin 8.8 g/dL (12.0-16.0); Lymphocytes Absolute Auto 1600 /uL (1100-4500); Lymphocytes Percent Auto 17.5 % (25-40); Mean Corpuscular HGB Conc 31.4 % (30-36); Mean Corpuscular Hemoglobin 23.6 PG (26-34); Monocytes Absolute Auto 500 /uL (0-900); Monocytes Percent Auto 5.7 % (3-14); Neutrophils Absolute Auto 6400 /uL (1500-7000); Neutrophils Percent Auto 72.7 % (50-75); Platelet Count 384 X10^3/uL (150-400); Red Blood Cell Count 3.72 X10^6/uL (4.0-5.2); Red Cell Distribution Width 18.9 % (11.6-14.8); White Blood Cell Count 8.9 X10^3/uL (4.5-11.0)
[2020-10-16 12:19] LABS: HEMOLYSIS < 15 (0-50); Iron 48 ug/dL (37-170)
[2020-10-16 12:30] LABS: Percent Iron Saturation 11 % (15-50); Total Iron Binding Capacity 437 ug/dL (265-497); Transferrin 342 mg/dL (206-381)
[2020-10-16 15:50] LABS: BUN Creatinine Ratio 9.8 (6-22); Blood Urea Nitrogen 11 mg/dL (7-17); Calcium 9.7 mg/dL (8.4-10.2); Carbon Dioxide 26 mmol/L (22-32); Chloride 104 mmol/L (98-107); Estimated Glomerular Filt Rate 46.5 mL/min (>60); Glucose 120 mg/dL (80-110); HEMOLYSIS < 15 (0-50); Sodium 140 mmol/L (137-145)
[2020-10-16 16:26] LABS: Ferritin 30 ng/mL (11-264)
[2020-10-16 16:56] LABS: Folate 5.9 ng/mL (2.76-20.0)
== END ==
PROVIDERS: Family Provider Internal Medicine; Visit Provider Nurse Practitioner Family
DX: D64.9 Anemia, unspecified (principal)
CPT/HCPCS: 80048; 82728; 82746; 83540; 83550; 85025

== ENCOUNTER → 2020-11-04 08:49 | Outpatient (ROUT) | payer OTHER, SELFPAY ==
[2020-11-04 09:36] LABS: Hematocrit 34.1 % (36-46); Hemoglobin 10.7 g/dL (12.0-16.0)
== END ==
PROVIDERS: Family Provider Internal Medicine; Visit Provider Nurse Practitioner Family
DX: D64.9 Anemia, unspecified (principal)
CPT/HCPCS: 36415; 85014; 85018

== ENCOUNTER → 2020-11-18 07:55 | Outpatient (ROUT) | payer OTHER, SELFPAY ==
[2020-11-18 08:11] LABS: Hematocrit 33.8 % (36-46); Hemoglobin 10.7 g/dL (12.0-16.0)
== END ==
PROVIDERS: Family Provider Internal Medicine; Visit Provider Nurse Practitioner Family
DX: D64.9 Anemia, unspecified (principal)
CPT/HCPCS: 36415; 85014; 85018

== ENCOUNTER → 2020-12-23 07:22 | Outpatient (ROUT) | payer OTHER, SELFPAY ==
[2020-12-23 08:14] LABS: Hematocrit 37.9 % (36-46); Hemoglobin 12.7 g/dL (12.0-16.0)
[2020-12-23 08:25] LABS: BUN Creatinine Ratio 13.1 (6-22); Blood Urea Nitrogen 14 mg/dL (7-17); Calcium 9.8 mg/dL (8.4-10.2); Carbon Dioxide 29 mmol/L (22-32); Chloride 103 mmol/L (98-107); Glucose 115 mg/dL (80-110); HEMOLYSIS < 15 (0-50); Potassium 4.1 mmol/L (3.4-5.1); Sodium 138 mmol/L (137-145)
== END ==
PROVIDERS: Family Provider Internal Medicine; Visit Provider Nurse Practitioner Family
DX: D64.9 Anemia, unspecified (principal); N18.9 Chronic kidney disease, unspecified
CPT/HCPCS: 36415; 80048; 85014; 85018

== ENCOUNTER → 2021-02-24 08:50 | Outpatient (ROUT) | payer OTHER, SELFPAY ==
[2021-02-24 10:19] LABS: Add Manual Diff / Slide Review NO; Basophils Absolute Auto 100 /uL (0-100); Basophils Percent Auto 0.7 % (0-2); Eosinophils Absolute Auto 200 /uL (0-450); Eosinophils Percent Auto 2.8 % (2-4); Hematocrit 39.7 % (36-46); Hemoglobin 13.2 g/dL (12.0-16.0); Lymphocytes Absolute Auto 2000 /uL (1100-4500); Lymphocytes Percent Auto 22.7 % (25-40); Mean Corpuscular HGB Conc 33.4 % (30-36); Mean Corpuscular Hemoglobin 29.1 PG (26-34); Mean Corpuscular Volume 87.2 fL (80-100); Monocytes Absolute Auto 500 /uL (0-900); Monocytes Percent Auto 6.2 % (3-14); Neutrophils Absolute Auto 6000 /uL (1500-7000); Neutrophils Percent Auto 67.6 % (50-75); Platelet Count 325 X10^3/uL (150-400); Red Blood Cell Count 4.55 X10^6/uL (4.0-5.2); Red Cell Distribution Width 14.4 % (11.6-14.8); White Blood Cell Count 8.8 X10^3/uL (4.5-11.0)
[2021-02-24 10:28] LABS: Alanine Aminotransferase 15 IU/L (<35); Albumin 4.2 g/dL (3.5-5.0); Albumin Globulin Ratio 1.2 (1.0-2.8); Alkaline Phosphatase 92 U/L (38-126); Aspartate Aminotransferase 27 IU/L (14-36); BUN Creatinine Ratio 11.7 (6-22); Bilirubin Total 0.8 mg/dL (0.2-1.3); Blood Urea Nitrogen 15 mg/dL (7-17); Calcium 9.8 mg/dL (8.4-10.2); Carbon Dioxide 28 mmol/L (22-32); Chloride 102 mmol/L (98-107); Estimated Glomerular Filt Rate 39.8 mL/min (>60); Globulin 3.4 g/dL (1.7-4.1); Glucose 132 mg/dL (80-110); HEMOLYSIS < 15 (0-50); Lipase 34 U/L (23-300); Potassium 3.7 mmol/L (3.4-5.1); Sodium 139 mmol/L (137-145); Total Protein 7.6 g/dL (6.3-8.2)
[2021-02-24 10:35] LABS: Iron 89 ug/dL (37-170)
== END ==
PROVIDERS: Family Provider Internal Medicine; Visit Provider Nurse Practitioner Family
DX: R10.9 Unspecified abdominal pain (principal)
CPT/HCPCS: 36415; 80053; 83540; 83690; 85025

== ENCOUNTER → 2021-03-12 10:41 | Outpatient (ROUT) | payer OTHER, SELFPAY ==
[2021-03-12 11:38] LABS: COVID-19 CEPHEID PCR (VTM/NP) Negative (Negative)
== END ==
PROVIDERS: Family Provider Internal Medicine; Visit Provider Physician Assistant
DX: Z01.812 Encounter for preprocedural laboratory examination (principal)
CPT/HCPCS: U0003

== ENCOUNTER → 2021-04-07 07:22 | Outpatient (ROUT) | payer OTHER, SELFPAY ==
[2021-04-07 08:47] LABS: BUN Creatinine Ratio 10.1 (6-22); Blood Urea Nitrogen 10 mg/dL (7-17); Calcium 9.6 mg/dL (8.4-10.2); Carbon Dioxide 30 mmol/L (22-32); Chloride 102 mmol/L (98-107); Estimated Glomerular Filt Rate 53.6 mL/min (>60); Glucose 100 mg/dL (80-110); HEMOLYSIS < 15 (0-50); Sodium 136 mmol/L (137-145)
== END ==
PROVIDERS: Family Provider Internal Medicine; Visit Provider Internal Medicine
DX: N19 Unspecified kidney failure (principal)
CPT/HCPCS: 36415; 80048

== ENCOUNTER → 2021-04-14 07:56 | Outpatient (ROUT) | payer OTHER, SELFPAY ==
[2021-04-14 10:04] LABS: Add Manual Diff / Slide Review NO; Basophils Absolute Auto 0 /uL (0-100); Basophils Percent Auto 0.5 % (0-2); Eosinophils Absolute Auto 200 /uL (0-450); Eosinophils Percent Auto 2.6 % (2-4); Hemoglobin 12.2 g/dL (12.0-16.0); Lymphocytes Absolute Auto 1600 /uL (1100-4500); Lymphocytes Percent Auto 22.6 % (25-40); Mean Corpuscular HGB Conc 33.1 % (30-36); Mean Corpuscular Hemoglobin 29.3 PG (26-34); Mean Corpuscular Volume 88.6 fL (80-100); Monocytes Absolute Auto 400 /uL (0-900); Monocytes Percent Auto 6.4 % (3-14); Neutrophils Absolute Auto 4700 /uL (1500-7000); Neutrophils Percent Auto 67.9 % (50-75); Platelet Count 282 X10^3/uL (150-400); Red Blood Cell Count 4.17 X10^6/uL (4.0-5.2); Red Cell Distribution Width 14.6 % (11.6-14.8); White Blood Cell Count 6.9 X10^3/uL (4.5-11.0)
[2021-04-14 10:37] LABS: Erythrocyte Sedimentation Rate 19 MM/HR (0-20)
[2021-04-14 10:49] LABS: Alanine Aminotransferase 10 IU/L (<35); Albumin 3.8 g/dL (3.5-5.0); Albumin Globulin Ratio 1.3 (1.0-2.8); Alkaline Phosphatase 77 U/L (38-126); Aspartate Aminotransferase 21 IU/L (14-36); BUN Creatinine Ratio 10.9 (6-22); Bilirubin Total 0.4 mg/dL (0.2-1.3); Blood Urea Nitrogen 11 mg/dL (7-17); C-Reactive Protein Quant < 0.5 mg/dL (<1.0); Calcium 9.7 mg/dL (8.4-10.2); Carbon Dioxide 31 mmol/L (22-32); Chloride 102 mmol/L (98-107); Estimated Glomerular Filt Rate 52.3 mL/min (>60); Glucose 91 mg/dL (80-110); HEMOLYSIS < 15 (0-50); Potassium 3.8 mmol/L (3.4-5.1); Sodium 138 mmol/L (137-145); Total Protein 6.8 g/dL (6.3-8.2)
[2021-04-14 10:53] LABS: NT-proBNP (BNP-Adult 18+) 682 pg/mL (<450)
[2021-04-14 11:06] LABS: Thyroid Stimulating Hormone 2.73 uIU/mL (0.47-4.68)
[2021-04-14 11:50] LABS: Folate 5.8 ng/mL (2.76-20.0); Vitamin B12 265 pg/mL (239-931)
== END ==
PROVIDERS: Family Provider Internal Medicine; Visit Provider Internal Medicine
DX: D64.9 Anemia, unspecified (principal); I50.9 Heart failure, unspecified
CPT/HCPCS: 36415; 80053; 82607; 82746; 83880; 84443; 85025; 85651; 86140

== ENCOUNTER → 2021-04-20 13:34 | Outpatient (CLI) | payer OTHER, SELFPAY ==
--- NOTE | 2021-04-20 13:37 | DI.RAD.S_ITS ---
PROCEDURE: XR KNEE LT 1TO2V INDICATIONS: arthritis, knee and ankle pain TECHNIQUE: 3 views of the knee were acquired. COMPARISON: None. FINDINGS: Bones: No fractures or dislocations. No suspicious bony lesions. Severe medial compartment osteoarthritis. Moderate patellofemoral compartment osteoarthritis. Mild lateral compartment osteoarthritis. Soft tissues: No joint effusion. No suspicious soft tissue calcifications. IMPRESSION: Tricompartmental osteoarthritis as described above. Dictated by: Abigail Sands MD, PhD on 04/20/2021 at 16:47 Approved by: Abigail Sands MD, PhD on 04/20/2021 at 16:49
--- NOTE | 2021-04-20 13:37 | DI.RAD.S_ITS ---
PROCEDURE: XR KNEE RT 1TO2V INDICATIONS: arthritis, knee and ankle pain TECHNIQUE: 2 views of the knee were acquired. COMPARISON: [facility], CR, XR KNEE RT 1TO2V, 05/09/2018, 11:15. FINDINGS: Bones: No acute fractures or dislocations. No suspicious bony lesions. There is moderate to severe narrowing of the lateral femorotibial compartment joint space with subchondral sclerosis and marginal osteophyte formation. Mild to moderate narrowing of the medial and anterior compartments are noted with small marginal osteophytes. Suprapatellar enthesophytes are seen. Soft tissues: Small joint effusion. No suspicious soft tissue calcifications. Surgical clips are noted projecting over the lower thigh. IMPRESSION: Tricompartmental osteoarthrosis is most notable and moderate to severe in the lateral femorotibial compartment. Dictated by: Dave Rea M.D. on 04/20/2021 at 16:53 Approved by: Dave Rea M.D. on 04/20/2021 at 16:54
== END ==
PROVIDERS: Family Provider Internal Medicine; PCP Internal Medicine; Referring Provider Internal Medicine; Visit Provider Internal Medicine
DX: M17.0 Bilateral primary osteoarthritis of knee (principal); M25.561 Pain in right knee; M25.562 Pain in left knee; M25.571 Pain in right ankle and joints of right foot; M25.572 Pain in left ankle and joints of left foot
CPT/HCPCS: 73560

== ENCOUNTER → 2021-04-28 08:17 | Outpatient (ROUT) | payer OTHER, SELFPAY ==
[2021-04-28 10:53] LABS: Vitamin B12 397 pg/mL (239-931)
== END ==
PROVIDERS: Family Provider Internal Medicine; PCP Internal Medicine; Visit Provider Internal Medicine
DX: Z13.9 Encounter for screening, unspecified (principal)
CPT/HCPCS: 36415; 82607

== ENCOUNTER 2021-05-19 12:53 | Emergency (ER) | payer OTHER, SELFPAY ==
[2021-05-19] VITALS (12 sets, daily range): BP systolic 126–136; BP diastolic 62–74; PULSE 66–84; RESP 22; TEMP 36.5; O2SAT 93–99; BMI 34.9
[2021-05-19 13:11] LABS: Add Manual Diff / Slide Review NO; Basophils Absolute Auto 100 /uL (0-100); Basophils Percent Auto 0.7 % (0-2); Eosinophils Absolute Auto 200 /uL (0-450); Eosinophils Percent Auto 2.3 % (2-4); Hematocrit 40.9 % (36-46); Hemoglobin 13.4 g/dL (12.0-16.0); Lymphocytes Absolute Auto 1900 /uL (1100-4500); Lymphocytes Percent Auto 19.9 % (25-40); Mean Corpuscular HGB Conc 32.9 % (30-36); Mean Corpuscular Hemoglobin 29.4 PG (26-34); Mean Corpuscular Volume 89.4 fL (80-100); Monocytes Absolute Auto 600 /uL (0-900); Monocytes Percent Auto 6.3 % (3-14); Neutrophils Absolute Auto 6700 /uL (1500-7000); Neutrophils Percent Auto 70.8 % (50-75); Platelet Count 326 X10^3/uL (150-400); Red Blood Cell Count 4.58 X10^6/uL (4.0-5.2); Red Cell Distribution Width 13.9 % (11.6-14.8); White Blood Cell Count 9.5 X10^3/uL (4.5-11.0)
[2021-05-19 13:16] LABS: Alanine Aminotransferase 13 IU/L (<35); Albumin 4.5 g/dL (3.5-5.0); Albumin Globulin Ratio 1.2 (1.0-2.8); Alkaline Phosphatase 74 U/L (38-126); Aspartate Aminotransferase 30 IU/L (14-36); BUN Creatinine Ratio 10.9 (6-22); Bilirubin Total 0.8 mg/dL (0.2-1.3); Blood Urea Nitrogen 12 mg/dL (7-17); Calcium 9.9 mg/dL (8.4-10.2); Carbon Dioxide 29 mmol/L (22-32); Chloride 103 mmol/L (98-107); Estimated Glomerular Filt Rate 47.4 mL/min (>60); Globulin 3.7 g/dL (1.7-4.1); Glucose 102 mg/dL (80-110); Lipase 31 U/L (23-300); Potassium 4.1 mmol/L (3.4-5.1); Sodium 140 mmol/L (137-145); Total Protein 8.2 g/dL (6.3-8.2)
[2021-05-19 13:17] LABS: HEMOLYSIS 53 (0-50)
--- NOTE | 2021-05-19 13:22 | PC.NURSE ---
Depends changed at this time, incontinent of urine. Joyce care performed.
[2021-05-19 13:50] LABS: Appearance Urine UA CLEAR; Bilirubin Urine UA NEGATIVE (NEGATIVE); Color Urine UA YELLOW; Glucose Urine UA NEGATIVE (Negative); Ketones Urine UA NEGATIVE (NEGATIVE); Leukocyte Esterase Urine UA NEGATIVE (NEGATIVE); Nitrite Urine UA NEGATIVE (Negative); Occult Blood Urine UA NEGATIVE (Negative); Protein Urine UA NEGATIVE (Negative); Specific Gravity Urine UA 1.015 (1.000-1.035); Urobilinogen Urine UA 0.2 E.U./dL (0.2)
--- NOTE | 2021-05-19 13:51 | ED_ITS ---
HPI - General Adult General Chief complaint: Abdominal Pain Stated complaint: Abdominal Pain Time Seen by Provider: 05/19/21 12:54 Source: patient and EMS Mode of arrival: EMS History of Present Illness HPI narrative: 85-year-old female who is brought in by EMS for evaluation of urinary frequency and abdominal pain and back pain and ?pain all over ?somewhat difficult for the patient to complete describe what is going on. States that over the past 24 hours she has been urinating multiple times and having urinary incontinence issues. She also thinks she potentially had some blood in her urine no changes in bowel habits. No fevers. No nausea vomiting. States she is having pain on the left side of her abdomen and also her lower back and in other areas throughout her body. She also reports lower extremity swelling. Related Data Home Medications Medication Instructions Recorded Confirmed gabapentin 300 mg capsule 300 mg PO BID 08/07/17 03/13/19 furosemide 20 mg tablet 20 mg PO DAILY 12/07/17 03/13/19 lubiprostone 24 mcg capsule 24 mcg PO DAILY 12/07/17 03/13/19 (Amitiza) aspirin 81 mg tablet,delayed 81 mg PO DAILY 12/26/17 03/13/19 release metoprolol succinate 50 mg 50 mg PO DAILY 12/26/17 03/13/19 tablet,extended release 24 hr doxepin 100 mg capsule 100 mg PO BEDTIME 01/23/18 03/13/19 diltiazem HCl 180 mg 180 mg PO DAILY 10/10/18 03/13/19 capsule,extended release 24 hr escitalopram oxalate 20 mg tablet 20 mg PO DAILY 10/10/18 03/13/19 gabapentin 600 mg tablet 600 mg PO BEDTIME 10/10/18 03/13/19 nystatin 100,000 unit/gram topical 1 applic TOPICAL BID 10/10/18 03/13/19 powder omeprazole 20 mg capsule,delayed 20 mg PO DAILY 10/10/18 03/13/19 release potassium chloride 10 mEq 10 meq PO QPM 10/10/18 03/13/19 tablet,extended release acetaminophen 325 mg tablet 325 mg PO Q6H PRN 01/09/19 03/13/19 calcium carbonate 500 mg calcium 500 mg PO DAILY 01/09/19 03/13/19 (1,250 mg) tablet (Oyster Shell Calcium 500) cholecalciferol (vitamin D3) 50 2,000 unit PO DAILY 01/09/19 03/13/19 mcg (2,000 unit) tablet (Vitamin D3) rivaroxaban 20 mg tablet (Xarelto) 20 mg PO DAILY 01/09/19 03/13/19 rosuvastatin 40 mg tablet 40 mg PO DAILY 01/09/19 03/13/19 Previous Rx's Medication Instructions Recorded polyethylene glycol 3350 17 gram 17 gm PO DAILY #1 pkg 10/13/18 oral powder packet oxycodone 5 mg tablet 5 - 10 mg PO Q4H PRN #50 tab 01/09/19 ciprofloxacin HCl 500 mg tablet 500 mg PO Q12H #14 tab 03/13/19 Allergies Allergy/AdvReac Type Severity Reaction Status Date / Time Sulfa (Sulfonamide Allergy Intermediate Rash Verified 02/24/20 08:06 Antibiotics) Review of Systems Constitutional Constitutional: Denies headache(s) ENT Ears, Nose, Mouth, and Throat: Denies headache(s) Cardiovascular Cardiovascular: Denies chest pain and Denies dyspnea Respiratory Respiratory: Denies dyspnea Gastrointestinal Gastrointestinal: Reports as per HPI and Reports system reviewed and no additional complaints, except as documented Genitourinary Genitourinary: Reports system reviewed and no additional complaints, except as documented and Reports as per HPI Integumentary/Breasts Skin/Breast: Reports system reviewed and no additional complaints, except as documented Neurologic Neurologic: Reports system reviewed and no additional complaints, except as documented and Denies headache(s) Hematologic/Lymphatic On Anticoagulants: No Patient History Medical History (Updated 05/19/21 @ 15:41 by Tony Wakefield DO) Chronic pain Dementia Depression GERD (gastroesophageal reflux disease) Herpes encephalitis History of lumbar puncture (08/29/18) Hyperlipidemia Hypertension Hypoxia (10/10/18) Impaired fasting glucose Pulmonary fibrosis Stroke Surgical History History of ankle surgery (10/11/18) Social History details: two years ago number of children: 2 household members: none lives independently: Yes caregiver/support person: Yes housing: apartment other: Denies alcohol drinking or cigarette smoking. Her son of overdose 1 w Smoking Status: Former smoker alcohol intake: current Smoking Status: Former smoker alcohol intake frequency: holidays/special occasions only Substance Use Type: does not use Exam Initial Vital Signs Initial Vital Signs: Vital Signs Pulse Rate 71 05/19/21 12:58 Pulse Oximetry 97 05/19/21 12:58 HENMT Head: normal to inspection and normocephalic Resp Effort & Inspection: normal respiratory effort Auscultation: clear to auscultation bilaterally Cardio Rate: regular rate Rhythm: regular rhythm GI Inspection: normal to inspection Palpation: soft, No guarding and No tender Skin General: no rashes or lesions noted Neuro General: patient alert, patient awake and moves all extremities Extrem General: capillary refill normal and edema Course Orders Ordered: ED Orders 05/19/21 13:08 Complete Blood Count AUTO DIFF Stat Comprehensive Metabolic Panel Stat Lipase Stat 05/19/21 13:22 EKG-12 Lead Stat 05/19/21 13:45 Urinalysis and Microscopic Stat 05/19/21 13:52 CT abdomen pelvis w con Stat Vital Signs Vital signs: Vital Signs - 8 hr 05/19/21 12:58 05/19/21 13:00 05/19/21 13:15 Temperature 97.7 F Pulse Rate 71 70 84 Respiratory Rate 22 Blood Pressure 131/69 Pulse Oximetry 97 96 98 05/19/21 13:31 05/19/21 13:41 05/19/21 14:09 Temperature Pulse Rate 69 75 Respiratory Rate Blood Pressure 136/62 Pulse Oximetry 93 98 05/19/21 14:30 05/19/21 15:00 05/19/21 15:30 Temperature Pulse Rate 66 67 66 Respiratory Rate Blood Pressure Pulse Oximetry 97 95 99 05/19/21 15:50 05/19/21 15:51 05/19/21 16:00 Temperature Pulse Rate 68 69 Respiratory Rate Blood Pressure 126/65 126/65 Pulse Oximetry 98 98 Medical Decision Making Medical Records Medical records reviewed: Yes I reviewed the patient's medical records. Lab Data Lab results reviewed: Yes I reviewed the patient's lab results. Result diagrams: 05/19/21 13:08 05/19/21 13:08 Labs: Lab Results 05/19/21 05/19/21 05/19/21 Range/Units 13:08 13:08 13:45 WBC 9.5 (4.5-11.0) X10^3/uL RBC 4.58 (4.0-5.2) X10^6/uL Hgb 13.4 (12.0-16.0) g/dL Hct 40.9 (36-46) % MCV 89.4 (80-100) fL MCH 29.4 (26-34) PG MCHC 32.9 (30-36) % RDW 13.9 (11.6-14.8) % Plt Count 326 (150-400) X10^3/uL Neut % (Auto) 70.8 (50-75) % Lymph % (Auto) 19.9 L (25-40) % [place] % (Auto) 6.3 (3-14) % Eos % (Auto) 2.3 (2-4) % Baso % (Auto) 0.7 (0-2) % Neut # (Auto) 6700 (4288-0683) /uL Lymph # (Auto) 1900 (5405-7352) /uL [place] # (Auto) 600 (0-900) /uL Eos # (Auto) 200 (0-450) /uL Baso # (Auto) 100 (0-100) /uL Sodium 140 (137-145) mmol/L Potassium 4.1 (3.4-5.1) mmol/L Chloride 103 (98-107) mmol/L Carbon Dioxide 29 (22-32) mmol/L BUN 12 (7-17) mg/dL Creatinine 1.10 H (0.52-1.04) mg/dL Estimated GFR 47.4 L (>60) mL/min BUN/Creatinine Ratio 10.9 (6-22) Glucose 102 (80-110) mg/dL Calcium 9.9 (8.4-10.2) mg/dL Total Bilirubin 0.8 (0.2-1.3) mg/dL AST 30 (14-36) IU/L ALT 13 (<35) IU/L Alkaline Phosphatase 74 (38-126) U/L Total Protein 8.2 (6.3-8.2) g/dL Albumin 4.5 (3.5-5.0) g/dL Globulin 3.7 (1.7-4.1) g/dL Albumin/Globulin Ratio 1.2 (1.0-2.8) Lipase 31 (23-300) U/L Urine Color Yellow Urine Appearance Clear Urine pH 7.0 (4.5-8.0) Ur Specific [place] 1.015 (1.000-1.035) Urine Protein Negative (Negative) Urine Glucose (UA) Negative (Negative) g/dL Urine Ketones Negative (NEGATIVE) Urine Occult Blood Negative (Negative) Urine Nitrate Negative (Negative) Urine Bilirubin Negative (NEGATIVE) Urine Urobilinogen 0.2 (0.2) E.U./dL Ur Leukocyte Esterase Negative (NEGATIVE) Urine RBC None seen (0-5/HPF) Urine WBC None seen (0-5/HPF) Urine Bacteria None seen (None) Ur Culture Indicated? Cult not indicated Micro UA Comment Microscopic normal Imaging Data CT scan - abdomen/pelvis: Radiologist's Impression: [address] [address] [address] Scan Report Signed Patient: Tali Burton MR#: [id number] : 1935 Acct:[id number] Age/Sex: 85 / F Date of Service: 05/19/21 Loc: ED Accession Number: [id number] ?? Procedure: CT abdomen pelvis w con Ordering Provider: Tony Wakefield D.O. PROCEDURE:? CT ABDOMEN PELVIS W CON ? INDICATIONS:? Left-sided abdominal discomfort with urinary frequency. ? TECHNIQUE:? After the administration of intravenous contrast, axial sections acquired from the lung bases to the pubic symphysis.? Coronal and sagittal reformats were performed.? For radiation dose reduction, the following was used:? automated exposure control, adjustment of mA and/or kV according to patient size.? ? COMPARISON:? [facility], CT, CT ABDOMEN PELVIS W CON, 09/05/2020, 1:13. ? FINDINGS: ? Lower thorax: The lung bases are clear.? Heart size normal.? Small hiatal hernia noted.? Old healed right lower rib fractures.? Incidental T10-T11 posterior osteophyte with moderate to severe central stenosis, similar prior. ? Liver:? Normal in size and attenuation. No contour deformity present. ? Biliary system:? No calcified cholelithiasis or pericholecystic inflammation. No intra or extrahepatic bile duct dilatation. ? Pancreas:? Unremarkable without mass or inflammation evident. ? Spleen:? Normal in size and density. ? Adrenals:? Normal morphology and density. ? Reproductive system:? Hysterectomy. ? Urinary system:? Normal renal size and attenuation. No renal calculi, hydronephrosis, or solid mass present.? Urinary bladder unremarkable. ? Gastrointestinal system:? The bowel is unremarkable without evidence of bowel obstruction or inflammation. The stomach appears unremarkable. ? Appendix:? No findings to suggest acute appendicitis. ? Peritoneal spaces:? No mesenteric or retroperitoneal adenopathy.? No free air.? No free fluid.? ? Vasculature:? The IVC, aorta and iliac vasculature are unremarkable. ? Abdominal wall:? Abdominal wall intact without evidence of ventral or inguinal hernias.? Stable prominent but benign-appearing inguinal lymph nodes ? Musculoskeletal:? Normal bone mineralization.? Degenerative disc disease and arthropathy noted in lower lumbar spine.? No acute fractures.? Incidental atrophy the left iliopsoas muscle.? No evidence of inflammation. ? IMPRESSION: ? 1. No acute CT findings in the abdomen or pelvis. ? 2. 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 ? 3. Incidental small hiatal hernia, left iliopsoas muscular atrophy, degenerative disc disease ? Approved by: Dejuan Holland M.D. on 05/19/2021 at 14:08? ECG Data Attestation: I personally reviewed and interpreted this ECG as follows: Interpretation: Sinus rhythm Ventricular rate 83 Normal axis Normal QRS Occasional PVC No ST T wave changes MDM Narrative Medical decision making narrative: Urinalysis does not show any signs of infection. CT scan does not show any signs of a obstruction or pyelonephriti or other intra-abdominal surgical patho logy. She does have a benign exam. Did consider starting her on Detrol however does have interactions with some of the medications she is currently taking so I advised that she contact her primary doctor for a follow-up to discuss treatment of her urinary frequency. Patient has a for discharge home. He was given return precautions. He expressed understanding and agreement. Discharge Plan Departure Patient Disposition: Home Clinical Impression: Abdominal pain, Urinary frequency Instructions: DI for Abdominal Pain-Adult Activity Restrictions/Additional Instructions: I do recommend that you continue to take all of your medications as directed. I do recommend that your primary doctor gets involved in your care. Return to the emergency department for any new or worsening symptoms. Prescriptions: No Action gabapentin 300 mg Capsule 300 mg PO BID 0RF Rx Instructions: take 1 capsule in am and 1 at afternoon metoprolol succinate 50 mg tablet extended release 24 hr 50 mg PO DAILY 0RF aspirin 81 mg Tablet,Delayed Release (/Ec) 81 mg PO DAILY 0RF gabapentin 600 mg Tablet 600 mg PO BEDTIME 0RF diltiazem HCl 180 mg capsule,extended release 24hr 180 mg PO DAILY 0RF nystatin 100,000 unit/gram Powder 1 applic TOPICAL BID 0RF Rx Instructions: right groin rash until resolve escitalopram oxalate 20 mg tablet 20 mg PO DAILY 0RF Label Comments: TK 1 T PO QD potassium chloride 10 mEq Tablet Extended Release 10 meq PO QPM 0RF omeprazole 20 mg capsule,delayed release(DR/EC) 20 mg PO DAILY 0RF Label Comments: TK 1 C PO QD polyethylene glycol 3350 17 gram Powder In Packet 17 gm PO DAILY Qty: 1 0RF furosemide 20 mg Tablet 20 mg PO DAILY 0RF Amitiza 24 mcg Capsule 24 mcg PO DAILY 0RF doxepin 100 mg Capsule 100 mg PO BEDTIME 0RF oxycodone 5 mg tablet 5 - 10 mg PO Q4H PRN (Reason: pain) Qty: 50 0RF Rx Instructions: exempt postop rosuvastatin 40 mg Tablet 40 mg PO DAILY 0RF cholecalciferol (vitamin D3) [Vitamin D3] 2,000 unit Tablet 2,000 unit PO DAILY 0RF Xarelto 20 mg Tablet 20 mg PO DAILY 0RF acetaminophen 325 mg tablet 325 mg PO Q6H PRN (Reason: Pain) 0RF calcium carbonate [Oyster Shell Calcium 500] 500 mg calcium (1,250 mg) Tablet 500 mg PO DAILY 0RF Rx Instructions: with meal ciprofloxacin HCl 500 mg tablet 500 mg PO Q12H Qty: 14 0RF Referrals: Pooja Root MD [Primary Care Provider] -
--- NOTE | 2021-05-19 13:52 | DI.CT.S_ITS ---
PROCEDURE: CT ABDOMEN PELVIS W CON INDICATIONS: Left-sided abdominal discomfort with urinary frequency. TECHNIQUE: After the administration of intravenous contrast, axial sections acquired from the lung bases to the pubic symphysis. Coronal and sagittal reformats were performed. For radiation dose reduction, the following was used: automated exposure control, adjustment of mA and/or kV according to patient size. COMPARISON: [facility], CT, CT ABDOMEN PELVIS W CON, 09/05/2020, 1:13. FINDINGS: Lower thorax: The lung bases are clear. Heart size normal. Small hiatal hernia noted. Old healed right lower rib fractures. Incidental T10-T11 posterior osteophyte with moderate to severe central stenosis, similar prior. Liver: Normal in size and attenuation. No contour deformity present. Biliary system: No calcified cholelithiasis or pericholecystic inflammation. No intra or extrahepatic bile duct dilatation. Pancreas: Unremarkable without mass or inflammation evident. Spleen: Normal in size and density. Adrenals: Normal morphology and density. Reproductive system: Hysterectomy. Urinary system: Normal renal size and attenuation. No renal calculi, hydronephrosis, or solid mass present. Urinary bladder unremarkable. Gastrointestinal system: The bowel is unremarkable without evidence of bowel obstruction or inflammation. The stomach appears unremarkable. Appendix: No findings to suggest acute appendicitis. Peritoneal spaces: No mesenteric or retroperitoneal adenopathy. No free air. No free fluid. Vasculature: The IVC, aorta and iliac vasculature are unremarkable. Abdominal wall: Abdominal wall intact without evidence of ventral or inguinal hernias. Stable prominent but benign-appearing inguinal lymph nodes Musculoskeletal: Normal bone mineralization. Degenerative disc disease and arthropathy noted in lower lumbar spine. No acute fractures. Incidental atrophy the left iliopsoas muscle. No evidence of inflammation. IMPRESSION: 1. No acute CT findings in the abdomen or pelvis. 2. 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 3. Incidental small hiatal hernia, left iliopsoas muscular atrophy, degenerative disc disease Approved by: Dejuan Holland M.D. on 05/19/2021 at 14:08
[2021-05-19 13:56] LABS: Bacteria Urine None Seen; Culture Indicated Urine Cult Not Indicated; RBC Urine None Seen (0-5/HPF); Urine Comments Microscopic Normal; WBC Urine None Seen (0-5/HPF)
== END 2021-05-19 16:09 | disposition home or self-care (01) ==
PROVIDERS: Emergency Provider Emergency Medicine; Family Provider Internal Medicine; PCP Internal Medicine
DX: R10.9 Unspecified abdominal pain (principal); R35.0 Frequency of micturition; R32 Unspecified urinary incontinence
CPT/HCPCS: 74177; 80053; 81001; 83690; 85025; 93005; 99283; 99284; Q9967

== ENCOUNTER 2021-05-28 11:13 | Emergency (ER) | payer OTHER, SELFPAY ==
[2021-05-28 11:19] VITALS: BP 118/62; PULSE 68; RESP 14; TEMP 36.2; O2SAT 98; BMI 38.6
--- NOTE | 2021-05-28 11:55 | DI.CT.S_ITS ---
PROCEDURE: CT HEAD/BRAIN WO CON INDICATIONS: head injury TECHNIQUE: Noncontrast 4.5 mm thick angled axial sections acquired from the foramen magnum to the vertex, with coronal and sagittal reformats. For radiation dose reduction, the following was used: automated exposure control, adjustment of mA and/or kV according to patient size. COMPARISON: [facility], CT, CT HEAD/BRAIN WO CON, 06/25/2020, 23:57. FINDINGS: Image quality: Excellent. CSF spaces: Basal cisterns are patent. No extra-axial fluid collections. The ventricles are symmetric in size and shape. Brain: No intracranial bleeds or masses. There is cerebral volume loss for age, with resultant ventricular and sulcal prominence. There are periventricular and deep white matter chronic small vessel ischemic changes. There is intracranial internal carotid artery atherosclerosis. Skull and face: Calvarium and visualized facial bones appear intact, without suspicious lesions. Sinuses: Visualized sinuses and mastoids are clear. IMPRESSION: 1. No acute intracranial process. 2. Moderate atrophy and chronic microvascular ischemic changes. Dictated by: Janelle Fu M.D. on 05/28/2021 at 12:18 Approved by: Janelle Fu M.D. on 05/28/2021 at 12:19
--- NOTE | 2021-05-28 12:32 | ED.HEATRA ---
HPI - Head Injury <Alexa Davila, [facility] - Last Filed: 05/28/21 12:59> General Chief complaint: Head Injury Stated complaint: hit back of head/headaches/pain/on blood thinners Time Seen by Provider: 05/28/21 12:02 Source: patient Mode of arrival: Wheelchair History of Present Illness HPI Narrative: 85-year-old female presents to the emergency department assisted by caregiver from [facility] for ongoing headaches since a close head injury to the back of her head a few weeks ago. Patient is on Xarelto, has a history of AFib, dementia, CVA. Patient denies any new changes, states that her head has been tender to touch since this happened, she says that she is not sleeping well because it is on the back of her head and her pillow makes it uncomfortable. She says that she is having a difficult time finding a comfortable position to lay in at night. Patient denies any recent falls, new mobility changes, difficulty with her speech, mentation, or new incontinence. Patient states that she hit the back of her head while sitting in a wheelchair on the wall, did not lose consciousness or throw up afterwards but has been complaining of pain at the site where it came in contact with the wall ever since. Care staff at [facility] deny any known loss of consciousness, new weakness, new changes to her gait or mentation. She has dementia at baseline. Patient states that she takes pain medicine every day but she has not had any Tylenol for this injury or for her headache. Related Data Home Medications Medication Instructions Recorded Confirmed gabapentin 300 mg capsule 300 mg PO BID 08/07/17 03/13/19 furosemide 20 mg tablet 20 mg PO DAILY 12/07/17 03/13/19 lubiprostone 24 mcg capsule 24 mcg PO DAILY 12/07/17 03/13/19 (Amitiza) aspirin 81 mg tablet,delayed 81 mg PO DAILY 12/26/17 03/13/19 release metoprolol succinate 50 mg 50 mg PO DAILY 12/26/17 03/13/19 tablet,extended release 24 hr doxepin 100 mg capsule 100 mg PO BEDTIME 01/23/18 03/13/19 diltiazem HCl 180 mg 180 mg PO DAILY 10/10/18 03/13/19 capsule,extended release 24 hr escitalopram oxalate 20 mg tablet 20 mg PO DAILY 10/10/18 03/13/19 gabapentin 600 mg tablet 600 mg PO BEDTIME 10/10/18 03/13/19 nystatin 100,000 unit/gram topical 1 applic TOPICAL BID 10/10/18 03/13/19 powder omeprazole 20 mg capsule,delayed 20 mg PO DAILY 10/10/18 03/13/19 release potassium chloride 10 mEq 10 meq PO QPM 10/10/18 03/13/19 tablet,extended release acetaminophen 325 mg tablet 325 mg PO Q6H PRN 01/09/19 03/13/19 calcium carbonate 500 mg calcium 500 mg PO DAILY 01/09/19 03/13/19 (1,250 mg) tablet (Oyster Shell Calcium 500) cholecalciferol (vitamin D3) 50 2,000 unit PO DAILY 01/09/19 03/13/19 mcg (2,000 unit) tablet (Vitamin D3) rivaroxaban 20 mg tablet (Xarelto) 20 mg PO DAILY 01/09/19 03/13/19 rosuvastatin 40 mg tablet 40 mg PO DAILY 01/09/19 03/13/19 Previous Rx's Medication Instructions Recorded polyethylene glycol 3350 17 gram 17 gm PO DAILY #1 pkg 10/13/18 oral powder packet oxycodone 5 mg tablet 5 - 10 mg PO Q4H PRN #50 tab 01/09/19 ciprofloxacin HCl 500 mg tablet 500 mg PO Q12H #14 tab 03/13/19 Allergies Allergy/AdvReac Type Severity Reaction Status Date / Time Sulfa (Sulfonamide Allergy Intermediate Rash Verified 05/28/21 11:19 Antibiotics) Review of Systems <Alexa Davila [employer]K [employer] DIRECTOR - Last Filed: 05/28/21 12:59> Review of Systems Narrative: General: denies fever, chills, malaise, sweats, fatigue Head/Neck: Endorses headache, denies neck pain, dizziness Eyes: denies visual changes, eye pain Cardio: denies chest pain, palpitations, edema Respiratory: denies dyspnea, cough, orthopnea GI: denies abdominal pain, nausea, vomiting, or diarrhea : denies dysuria, hematuria, urinary retention, frequency or incontinence MSK: denies joint pain, muscle weakness Skin: denies rash, itching, skin lesions or other Neuro: denies numbness, tingling Patient History <VINH Razo - Last Filed: 05/28/21 12:59> Medical History Chronic pain Dementia Depression GERD (gastroesophageal reflux disease) Herpes encephalitis History of lumbar puncture (08/29/18) Hyperlipidemia Hypertension Hypoxia (10/10/18) Impaired fasting glucose Pulmonary fibrosis Stroke Surgical History History of ankle surgery (10/11/18) Social History details: two years ago number of children: 2 household members: none lives independently: Yes caregiver/support person: Yes housing: apartment other: Denies alcohol drinking or cigarette smoking. Her son of overdose 1 w Smoking Status: Former smoker alcohol intake: current Smoking Status: Former smoker alcohol intake frequency: holidays/special occasions only Substance Use Type: does not use Exam <VINH Razo - Last Filed: 05/28/21 12:59> Narrative Exam Narrative: Independently reviewed vitals signs and nursing notes. General: Cooperative, comfortable, elderly, in no acute distress, sitting in a wheelchair, well groomed Head/Neck: Normal visual inspection and supple, atraumatic, no JVD or lymphadenopathy. Normal facial exam, very small bump to the left occipital scalp, appears to be healing, no hematoma or open wound, patient complains of tenderness with palpation but no exquisite tenderness with exam, no edema no palpable skull fracture Eyes: Pupils equal round and reactive, EOMI, conjunctiva normal, no scleral icterus or injections Nose: External nose normal, nares patent, no rhinorrhea Mouth/Throat: uvula midline, moist mucus membranes Cardio: no peripheral edema, warm extremities Respiratory: Normal respiratory effort, able to speak in complete sentences without audible wheezing, stridor, or rales. No retractions. GI: Abdomen soft, nontender to palpation , nondistended, no masses or exquisite tenderness with exam, no flank tenderness MSK: Moves all extremities, neurovascularly intact Skin: Normal capillary refill, no rash Neuro: Normal speech, mediocre historian, normal gait, A&O x3, tone normal, moves all extremities Psych: Mental status is grossly normal with baseline forgetfulness, speech is clear, congruent mood, normal affect Initial Vital Signs Initial Vital Signs: Vital Signs Temperature 97.1 F L 05/28/21 11:19 Pulse Rate 68 05/28/21 11:19 Respiratory Rate 14 05/28/21 11:19 Blood Pressure 118/62 05/28/21 11:19 Pulse Oximetry 98 05/28/21 11:19 <Zoe Estrella DO - Last Filed: 05/29/21 09:18> Initial Vital Signs Initial Vital Signs: Vital Signs Temperature 97.1 F L 05/28/21 11:19 Pulse Rate 68 05/28/21 11:19 Respiratory Rate 14 05/28/21 11:19 Blood Pressure 118/62 05/28/21 11:19 Pulse Oximetry 98 05/28/21 11:19 Course <VINH Razo - Last Filed: 05/28/21 12:59> Orders Ordered: Discontinued Medications Acetaminophen (Acetaminophen 325 Mg Tablet) 975 mg PO NOW ONE Stop: 05/28/21 12:38 Last Admin: 05/28/21 12:43 Dose: 975 mg Documented by: AMANDA Vital Signs Vital signs: Vital Signs - 8 hr 05/28/21 11:19 Temperature 97.1 F L Pulse Rate 68 Respiratory Rate 14 Blood Pressure 118/62 Pulse Oximetry 98 <Zoe Estrella DO - Last Filed: 05/29/21 09:18> Orders Ordered: Discontinued Medications Acetaminophen (Acetaminophen 325 Mg Tablet) 975 mg PO NOW ONE Stop: 05/28/21 12:38 Last Admin: 05/28/21 12:43 Dose: 975 mg Documented by: AMANDA Vital Signs Vital signs: Vital Signs - 8 hr 05/28/21 11:19 Temperature 97.1 F L Pulse Rate 68 Respiratory Rate 14 Blood Pressure 118/62 Pulse Oximetry 98 MDM - Head Injury <VINH Razo - Last Filed: 05/28/21 12:59> Imaging Data CT scan - head: Radiologist's Impression: PROCEDURE:? CT HEAD/BRAIN WO CON ? INDICATIONS:? head injury ? TECHNIQUE:? Noncontrast 4.5 mm thick angled axial sections acquired from the foramen magnum to the vertex, with coronal and sagittal reformats.? For radiation dose reduction, the following was used:? automated exposure control, adjustment of mA and/or kV according to patient size.? ? COMPARISON:? [facility], CT, CT HEAD/BRAIN WO MEL, 06/25/2020, 23:57. ? FINDINGS:? Image quality:? Excellent.? ? CSF spaces:? Basal cisterns are patent.? No extra-axial fluid collections.? The ventricles are symmetric in size and shape.? ? Brain:? No intracranial bleeds or masses.? There is cerebral volume loss for age, with resultant ventricular and sulcal prominence.? There are periventricular and deep white matter chronic small vessel ischemic changes.? There is intracranial internal carotid artery atherosclerosis.? ? Skull and face:? Calvarium and visualized facial bones appear intact, without suspicious lesions.? ? Sinuses:? Visualized sinuses and mastoids are clear.? ? IMPRESSION:? 1. No acute intracranial process. ? 2. Moderate atrophy and chronic microvascular ischemic changes. ? ? ? Dictated by: Janelle Fu M.D. on 05/28/2021 at 12:18 ? ? Approved by: Janelle Fu M.D. on 05/28/2021 at 12:19 ? MDM Narrative Medical decision making narrative: 85-year-old female who lives at [facility] with history of atrial fibrillation on Xarelto presents to the emergency department approximately 2 weeks after she hit the back of her head on a wall while sitting in a wheelchair. She is complaining of a headache ever since, but more specifically tenderness to her scalp where she had a bump since the injury. CT head obtained for patient's age, on anticoagulants, she did not have any loss of consciousness or emesis however she has had ongoing headache/scalp pain since the incident. CT head shows no acute intracranial process, moderate atrophy and chronic microvascular ischemic changes. There was no suspicious lesions on her skull. Patient has not had any new mental status changes, she is a DNR, she has not had any new trauma, falls, syncope, dizziness, weakness, or concern for hemorrhage or CVA. Patient has dementia at baseline, is mild to moderately confused but easily redirectable and often answering questions appropriately. Patient was given Tylenol in the emergency department, instructed to take Tylenol every 6 hours as needed for her headache, stay hydrated, and to try sleeping on her side or changing positions in bed to not have pressure on this tender area on her scalp. Patient is appropriate and amenable to discharge home. Vital signs are stable on repeat examination is unremarkable. Patient has been informed of results. Patient has been given strict return to ER precautions for any new or worsening symptoms. Patient understands to follow up closely with outpatient providers as instructed. Patient understands plan and agrees to discharge home. All questions and concerns answered at this time. #415 - Emergency Medicine: Utilization of CT for Minor Blunt Head Trauma (Adult) [x] Patient is 18 or older, presenting with minor blunt head trauma. Head CT (including cosigned orders) was ordered by an emergency caregiver assisted living for trauma because (select one or more): [SATISFIES MIPS PERFORMANCE] Reasons: [x] Patient is 65 or older [] Patient GCS < 15 [] Patient has focal neurologic deficit Discharge Plan Departure Patient Disposition: Home Clinical Impression: Head injury, closed Qualifiers: Encounter type: initial encounter Qualified Code(s): S09.90XA - Unspecified injury of head, initial encounter Headache Qualifiers: Headache type: post-traumatic Headache chronicity pattern: acute headache Intractability: not intractable Qualified Code(s): G44.319 - Acute post-traumatic headache, not intractable Instructions: Closed Head Injury, DI for Headache Activity Restrictions/Additional Instructions: *You have been diagnosed with a close head injury with a posttraumatic headache. CT results show no acute intracranial bleeding, fracture, or signs of trauma. CT shows moderate atrophy and chronic microvascular ischemic changes but nothing acute. Please give Tali Tylenol 650 mg every 6 hours as needed for her headache. Thank you for having her evaluated, please return to the emergency department for any new or worsening problems. *What to do: *Please continue to take your regular medications as directed. [ ] New medication prescriptions sent to your pharmacy: [ ] [ ] New medication written as a paper prescription [ x] No new medications given *Please follow up with your primary care provider in 2-3 days, call for an appointment. Let them know you were seen in the Emergency Department and that we ask that you be seen in follow up. We will electronically transmit a record of today's note if your PCP is in our system *If you do not have a primary care provider please contact the [facility] Resource line at [phone]. They will ask some questions about your medical history and help get you set up with a doctor in the community. *Return to Emergency Department if you should have any new, worsening or concerning symptoms, such as [fever greater than 101F, chills, worsening pain, persistent vomiting or other bothersome symptoms] Prescriptions: No Action gabapentin 300 mg Capsule 300 mg PO BID 0RF Rx Instructions: take 1 capsule in am and 1 at afternoon metoprolol succinate 50 mg tablet extended release 24 hr 50 mg PO DAILY 0RF aspirin 81 mg Tablet,Delayed Release (Dr/Ec) 81 mg PO DAILY 0RF gabapentin 600 mg Tablet 600 mg PO BEDTIME 0RF diltiazem HCl 180 mg capsule,extended release 24hr 180 mg PO DAILY 0RF nystatin 100,000 unit/gram Powder 1 applic TOPICAL BID 0RF Rx Instructions: right groin rash until resolve escitalopram oxalate 20 mg tablet 20 mg PO DAILY 0RF Label Comments: TK 1 T PO QD potassium chloride 10 mEq Tablet Extended Release 10 meq PO QPM 0RF omeprazole 20 mg capsule,delayed release(DR/EC) 20 mg PO DAILY 0RF Label Comments: TK 1 C PO QD polyethylene glycol 3350 17 gram Powder In Packet 17 gm PO DAILY Qty: 1 0RF furosemide 20 mg Tablet 20 mg PO DAILY 0RF Amitiza 24 mcg Capsule 24 mcg PO DAILY 0RF doxepin 100 mg Capsule 100 mg PO BEDTIME 0RF oxycodone 5 mg tablet 5 - 10 mg PO Q4H PRN (Reason: pain) Qty: 50 0RF Rx Instructions: exempt postop rosuvastatin 40 mg Tablet 40 mg PO DAILY 0RF cholecalciferol (vitamin D3) [Vitamin D3] 2,000 unit Tablet 2,000 unit PO DAILY 0RF Xarelto 20 mg Tablet 20 mg PO DAILY 0RF acetaminophen 325 mg tablet 325 mg PO Q6H PRN (Reason: Pain) 0RF calcium carbonate [Oyster Shell Calcium 500] 500 mg calcium (1,250 mg) Tablet 500 mg PO DAILY 0RF Rx Instructions: with meal ciprofloxacin HCl 500 mg tablet 500 mg PO Q12H Qty: 14 0RF Referrals: Pooja Root MD [Primary Care Provider] - <Zoe Estrella DO - Last Filed: 05/29/21 09:18> Cosign ED Attending Cosignature Attestation: I was immediately available in the department for consultation. Documentation has been reviewed.
[2021-05-28] MEDS: ACETAMINOPHEN 325 MG TABLET 975 MG PO (12:43)
[2021-05-28 12:47] VITALS: BP 104/57; PULSE 60; RESP 18; O2SAT 97
== END 2021-05-28 12:47 | disposition home or self-care (01) ==
PROVIDERS: Emergency Provider Nurse Practitioner Critical Care Medicine; Family Provider Internal Medicine; PCP Internal Medicine
DX: S09.8XXA Other specified injuries of head, initial encounter (principal); G44.319 Acute post-traumatic headache, not intractable; W22.01XA Walked into wall, initial encounter; Z79.01 Long term (current) use of anticoagulants
CPT/HCPCS: 70450; 99284

== ENCOUNTER → 2021-06-23 07:14 | Outpatient (ROUT) | payer OTHER, SELFPAY ==
[2021-06-23 07:47] LABS: Add Manual Diff / Slide Review NO; Basophils Absolute Auto 0 /uL (0-100); Basophils Percent Auto 0.6 % (0-2); Eosinophils Absolute Auto 300 /uL (0-450); Eosinophils Percent Auto 3.8 % (2-4); Hematocrit 34.6 % (36-46); Hemoglobin 11.5 g/dL (12.0-16.0); Lymphocytes Absolute Auto 1500 /uL (1100-4500); Lymphocytes Percent Auto 21.8 % (25-40); Mean Corpuscular HGB Conc 33.3 % (30-36); Mean Corpuscular Hemoglobin 29.5 PG (26-34); Mean Corpuscular Volume 88.5 fL (80-100); Monocytes Absolute Auto 500 /uL (0-900); Monocytes Percent Auto 6.9 % (3-14); Neutrophils Absolute Auto 4800 /uL (1500-7000); Neutrophils Percent Auto 66.9 % (50-75); Platelet Count 261 X10^3/uL (150-400); Red Blood Cell Count 3.91 X10^6/uL (4.0-5.2); Red Cell Distribution Width 13.3 % (11.6-14.8); White Blood Cell Count 7.1 X10^3/uL (4.5-11.0)
[2021-06-23 07:53] LABS: Alanine Aminotransferase 9 IU/L (<35); Albumin 3.6 g/dL (3.5-5.0); Albumin Globulin Ratio 1.2 (1.0-2.8); Alkaline Phosphatase 72 U/L (38-126); Aspartate Aminotransferase 19 IU/L (14-36); Bilirubin Total 0.7 mg/dL (0.2-1.3); Blood Urea Nitrogen 11 mg/dL (7-17); C-Reactive Protein Quant < 0.5 mg/dL (<1.0); Calcium 9.4 mg/dL (8.4-10.2); Carbon Dioxide 27 mmol/L (22-32); Chloride 103 mmol/L (98-107); Glucose 96 mg/dL (80-110); HEMOLYSIS < 15 (0-50); Sodium 137 mmol/L (137-145); Total Protein 6.6 g/dL (6.3-8.2)
[2021-06-23 08:23] LABS: Erythrocyte Sedimentation Rate 24 MM/HR (0-20)
[2021-06-25 15:06] LABS: ANA Screen, IFA Negative (.)
== END ==
PROVIDERS: Family Provider Internal Medicine; PCP Internal Medicine; Visit Provider Nurse Practitioner Family
DX: R10.84 Generalized abdominal pain (principal); M25.50 Pain in unspecified joint
CPT/HCPCS: 36415; 80053; 85025; 85651; 86038; 86140

== ENCOUNTER → 2021-06-24 14:41 | Outpatient (CLI) | payer OTHER, SELFPAY ==
--- NOTE | 2021-06-24 | DI.CT.S_ITS ---
PROCEDURE: CT SOFT TISSUE NECK WO CON INDICATIONS: SOLITARY PULMONARY NODULE. NECK MASS TECHNIQUE: Non-contrast 3.0 mm axial sections acquired from the sella to the aortic arch. Additional oblique axial 3.0 mm sections acquired through the pharynx. 3 mm thick coronal and sagittal reformats were generated. For radiation dose reduction, the following was used: automated exposure control. Lack of contrast limits assessment of vascular and solid structures. COMPARISON: None. FINDINGS: Image quality: Excellent. Lymph nodes: No enlarged lymph nodes seen throughout the neck. Vessels: Non-opacified vessels appear normal in caliber. Neck spaces: The oropharynx, nasopharynx, and pharynx demonstrate no mucosal lesions. The vocal cords, false vocal cords, pyriform sinuses, epiglottis, vallecula, and tongue base all appear normal. Extramucosal spaces appear unremarkable. Glands: The parotid and submandibular glands appear normal, without stones. Thyroid gland and unremarkable . Miscellaneous: Visualized brain and orbits appear normal. Lung apices appear clear. Superficial soft tissues appear normal. Degenerative disc disease and arthropathy . Atherosclerotic vascular calcification noted in both proximal internal carotid arteries in the aortic arch IMPRESSION: 1. No noncontrast CT evidence of neck mass 2. Incidental degenerative disc disease, arthropathy and atherosclerosis Approved by: Dejuan Holland M.D. on 06/24/2021 at 16:38
--- NOTE | 2021-06-24 | DI.CT.S_ITS ---
PROCEDURE: CT CHEST WO CON INDICATIONS: SOLITARY PULMONARY NODULE. NECK MASS TECHNIQUE: Noncontrast 2.0-2.5 mm thick sections acquired from the pulmonary apices to the posterior costophrenic angles. 7 mm thick axial MIP and 5 mm coronal and sagittal reformats were then acquired. A low radiation dose technique was utilized. COMPARISON: [facility], CT, CT ABDOMEN PELVIS W CON, 06/06/2020, 20:32. [facility], CT, CT ABDOMEN PELVIS W CON, 05/19/2021, 14:00. [facility], CT, CT CHEST WO CON, 02/14/2020, 15:21. FINDINGS: Image quality: Diagnostic, given the low radiation dose technique. Lungs and pleura: There is bilateral apically scarring. No acute airspace opacities. No pleural effusion or pneumothorax. No focal pulmonary nodules visualized on the current study. Mediastinum: Heart size is normal. No pericardial effusion. No mediastinal adenopathy by size criteria. Thoracic aorta and central pulmonary arteries are normal in size. Dense atheromatous calcifications are present within the aortic arch. Esophagus is normal in caliber. No hiatal hernia. Bones and chest wall: No suspicious bony lesions. No vertebral body compression fractures. No axillary or supraclavicular adenopathy by size criteria. Thyroid gland is unremarkable . Abdomen: Visualized upper abdomen solid organs and bowel loops appear normal in the absence of contrast. IMPRESSION: 1. No pulmonary nodules visualized on the current study. No further follow-up recommended. Fleischner Society criteria for SOLID lung nodule followup. Nodule size (mm)Low-risk patientHigh-risk patient<6 (single or multiple)No routine followup.Optional CT at 12 months. 6-8 (single or multiple)CT at 6-12 months, then optional CT at 18-24 mo.CT at 6-12 months, then CT at 18-24 months. >8 (single)CT at 3 months, PET-CT, or biopsy. Same as for low-risk pts. >8 (multiple)CT at 3-6 months, then optional CT at 18-24 mo.CT at 3-6 months, then CT at 18-24 months. Fleischner Society criteria for SUB-SOLID lung nodule followup. Solitary pure ground-glass nodules<6 mm (ground glass or part solid)No followup needed. 6 mm or larger (ground glass)CT at 6-12 months to confirm persistence, then CT every 2 years until 5 years.6 mm or larger (part solid)CT at 3-6 months to confirm persistence, then annual CT until 5 years if unchanged and solid component remains <6 mm. Multiple sub-solid nodules<6 mmCT at 3-6 months, then CT consider at 2 & 4 years for high risk patients. [address] at 3-6 months. Subsequent management based on most suspicious lesions. Recommendations do not apply to lung cancer screening, patients with immunosuppression, or patients with known primary cancer. Dictated by: Rebeca De Los Santos M.D. on 06/24/2021 at 16:44 Approved by: Rebeca De Los Santos M.D. on 06/24/2021 at 16:50
== END ==
PROVIDERS: Family Provider Internal Medicine; PCP Internal Medicine; Referring Provider Nurse Practitioner Family; Visit Provider Nurse Practitioner Family
DX: R22.1 Localized swelling, mass and lump, neck (principal); R91.1 Solitary pulmonary nodule
CPT/HCPCS: 70490; 71250

== ENCOUNTER → 2021-07-22 12:20 | Outpatient (CLI) | payer OTHER, SELFPAY ==
[2021-07-22 13:14] LABS: Add Manual Diff / Slide Review NO; Basophils Absolute Auto 100 /uL (0-100); Basophils Percent Auto 0.6 % (0-2); Eosinophils Absolute Auto 200 /uL (0-450); Hematocrit 38.8 % (36-46); Lymphocytes Absolute Auto 1700 /uL (1100-4500); Lymphocytes Percent Auto 17.9 % (25-40); Mean Corpuscular HGB Conc 33.4 % (30-36); Mean Corpuscular Hemoglobin 29.6 PG (26-34); Mean Corpuscular Volume 88.7 fL (80-100); Monocytes Absolute Auto 400 /uL (0-900); Monocytes Percent Auto 4.3 % (3-14); Neutrophils Absolute Auto 7200 /uL (1500-7000); Neutrophils Percent Auto 75.2 % (50-75); Platelet Count 308 X10^3/uL (150-400); Red Blood Cell Count 4.37 X10^6/uL (4.0-5.2); Red Cell Distribution Width 13.7 % (11.6-14.8); White Blood Cell Count 9.5 X10^3/uL (4.5-11.0)
[2021-07-22 13:32] LABS: Blood Urea Nitrogen 14 mg/dL (7-17); Calcium 9.4 mg/dL (8.4-10.2); Carbon Dioxide 29 mmol/L (22-32); Chloride 100 mmol/L (98-107); Estimated Glomerular Filt Rate 56 mL/min (>60); Glucose 144 mg/dL (80-110); HEMOLYSIS 21 (0-50); Potassium 3.7 mmol/L (3.4-5.1); Sodium 138 mmol/L (137-145)
== END ==
PROVIDERS: Family Provider Internal Medicine; PCP Internal Medicine; Referring Provider Nurse Practitioner Family; Visit Provider Nurse Practitioner Family
DX: R60.9 Edema, unspecified (principal); Z79.899 Other long term (current) drug therapy
CPT/HCPCS: 36415; 80048; 85025

== ENCOUNTER → 2021-08-11 08:19 | Outpatient (ROUT) | payer OTHER, SELFPAY ==
[2021-08-11 09:11] LABS: BUN Creatinine Ratio 13.1 (6-22); Blood Urea Nitrogen 14 mg/dL (7-17); Calcium 9.4 mg/dL (8.4-10.2); Carbon Dioxide 32 mmol/L (22-32); Chloride 101 mmol/L (98-107); Estimated Glomerular Filt Rate 52 mL/min (>60); Glucose 105 mg/dL (80-110); HEMOLYSIS 17 (0-50); Potassium 3.7 mmol/L (3.4-5.1); Sodium 139 mmol/L (137-145)
== END ==
PROVIDERS: Family Provider Internal Medicine; PCP Internal Medicine; Visit Provider Nurse Practitioner Family
DX: E78.5 Hyperlipidemia, unspecified (principal)
CPT/HCPCS: 36415; 80048

== ENCOUNTER → 2021-08-20 16:04 | Outpatient (CLI) | payer OTHER, SELFPAY ==
--- NOTE | 2021-08-20 16:09 | DI.MRI.S_ITS ---
PROCEDURE: MR CERVICAL SPINE WO CON INDICATIONS: Radiculopathy, cervical region TECHNIQUE: Noncontrast sagittal T1 spin echo and T2 fast spin echo, sagittal STIR, foraminal oblique sagittal T2 fast spin echo, and axial gradient echo or T2 fast spin echo through the cervical spine. COMPARISON: None. FINDINGS: Image quality: Excellent. Alignment and Curvature: There is normal bony alignment. Bone Marrow: Marrow demonstrates normal overall signal. Spinal Cord: Visualized spinal cord has normal size and signal. No cerebellar tonsillar herniation. Paraspinous Soft Tissues: No paravertebral masses. Prevertebral soft tissues are normal in thickness. C2-C3: Disc height is preserved. No central or foraminal stenosis C3-C4: Mild disc space narrowing and posterior disc osteophyte complex results in mild central stenosis. Hypertrophic left arthropathy associated mild left and no right foraminal stenosis. C4-C5: Disc space narrowing with posterior disc osteophyte complex and hypertrophic left uncovertebral joints results in mild central stenosis. No right foraminal stenosis. Moderate left foraminal stenosis. C5-C6: Disc space narrowing with posterior disc osteophyte complex and small central protrusion results in moderate central stenosis with flattening the ventral surface of the cord. Moderate left and mild right foraminal stenosis. C6-C7: Disc space narrowing with small posterior disc osteophyte complex present. No central stenosis. Moderate left and no right foraminal stenosis. C7-T1: Disc height is preserved. No central or foraminal stenosis. IMPRESSION: 1. Multilevel degenerative disc disease and arthropathy results in varying degrees of central and foraminal stenosis including moderate central and left foraminal stenosis at C5-6 Approved by: Dejuan Holland M.D. on 08/22/2021 at 19:31
== END ==
PROVIDERS: Family Provider Internal Medicine; PCP Internal Medicine; Referring Provider Nurse Practitioner Family; Visit Provider Nurse Practitioner Family
DX: M54.12 Radiculopathy, cervical region (principal); M50.31 Other cervical disc degeneration, high cervical region; M48.02 Spinal stenosis, cervical region; M47.812 Spondylosis without myelopathy or radiculopathy, cervical region
CPT/HCPCS: 72141

== ENCOUNTER → 2021-10-19 14:17 | Outpatient (CLI) | payer OTHER, SELFPAY ==
--- NOTE | 2021-10-19 | DI.RAD.S_ITS ---
PROCEDURE: XR SHOULDER RT MIN 2V INDICATIONS: RIGHT SHOULDER PAIN TECHNIQUE: 3 views of the shoulder were acquired. COMPARISON: None. FINDINGS: Bones: No fractures or dislocations. No suspicious bony lesions. Visualized ribs appear intact. Superior migration humeral head. Moderate acromioclavicular and mild glenohumeral joint space narrowing with periarticular osteophyte formation. Soft tissues: No suspicious soft tissue calcifications. IMPRESSION: Superior migration of the humeral head consistent with rotator cuff pathology and/or muscle atrophy. If indicated MRI could be performed to further evaluate the soft tissues. Moderate acromioclavicular mild glenohumeral joint degeneration. Dictated by: Karlo MINAYA Interpreted: Janelle Fu MD on 10/19/2021 at 15:39 Transcribed by: VERONICA on 10/19/2021 at 15:39 Approved by: Janelle Fu M.D. on 10/21/2021 at 7:35
== END ==
PROVIDERS: Family Provider Internal Medicine; PCP Internal Medicine; Referring Provider Nurse Practitioner Family; Visit Provider Nurse Practitioner Family
DX: M19.011 Primary osteoarthritis, right shoulder (principal); M25.511 Pain in right shoulder
CPT/HCPCS: 73030

== ENCOUNTER → 2021-10-29 15:24 | Outpatient (CLI) | payer OTHER, SELFPAY ==
--- NOTE | 2021-10-29 16:04 | DI.ECHO.S_ITS ---
+ + :Name: SURAJ WEBER Study Date: 10/29/2021 Height: 68 in : :[facility] ReadingLocation: Weight: 145 lb : : Gender: Female BSA: 1.8 m2 : :: 1935 Age: 86 yrs BP: 134/57 mmHg: :Reason For Study: SOB : :Ordering Physician: MARICRUZ- : :JAYCE JEFFRESON Performed By: Taj De Souza : :Referring: JAYCE SWANSON : + + Interpretation Summary Atrial fibrillation with rapid ventricular rate. The left ventricle is normal in size and wall thickness. Left ventricular systolic function is mildly reduced. The ejection fraction is estimated to be 35-40%. There is mild global hypokinesis of the left ventricle. Diastolic function could not be accurately assessed due to atrial fibrillation. The right ventricle is mildly dilated. Right ventricular systolic function is mildly reduced. Both atria are severely dilated. There is mild mitral regurgitation. There is mild aortic valve sclerosis. There is moderate tricuspid regurgitation. The right ventricular systolic pressure is estimated to be at least 31 mmHg based on an estimated right atrial pressure of 3 mm Hg. Compared to prior study on 11/29/2019, LV systolic function has decreased, otherwise ongoing atrial fibrillation. RVSP not significantly changed. Procedure: A two-dimensional transthoracic echocardiogram with color flow and Doppler was performed. The study quality was technically difficult. Comparison is made with the echocardiogram of 11/29/2019. A contrast injection of Definity was performed to improve assessment of LV function. Atrial fibrillation with rapid ventricular rate. Left Ventricle: The left ventricle is normal in size and wall thickness. Left ventricular systolic function is mildly reduced. The ejection fraction is estimated to be 35-40%. There is mild global hypokinesis of the left ventricle. Diastolic function could not be accurately assessed due to atrial fibrillation. Right Ventricle: The right ventricle is mildly dilated. Right ventricular systolic function is mildly reduced. Atria: Both atria are severely dilated. The interatrial septum grossly appears intact with no obvious evidence for an atrial septal defect. Mitral Valve: There is mild mitral annular calcification. There is mild mitral regurgitation. Aortic Valve: There is mild aortic valve sclerosis. There is trace aortic regurgitation. Tricuspid Valve: The tricuspid valve is normal in structure and function. There is moderate tricuspid regurgitation. The right ventricular systolic pressure is estimated to be at least 31 mmHg based on an estimated right atrial pressure of 3 mm Hg. Pulmonic Valve: The pulmonic valve is not well seen, but is grossly normal. There is no pulmonic valvular regurgitation. Great Vessels: The aortic root is normal size. The dimensions of the ascending aorta are normal. The IVC is of normal diameter and collapses greater than 50% with a sniff. This suggests a low right atrial pressure of 3 mm Hg. Pericardium/ Pleura There is no pericardial effusion. There is no pleural effusion. MMode/2D Measurements & Calculations LVIDd: 4.5 cm LVOT diam: 2.0 cm LVIDs: 3.6 cm Ao root diam: 3.0 cm FS: 21.0 % asc Aorta Diam: 3.3 cm IVSd: 0.94 cm LVPWd: 0.97 cm LV esquivel. diameter/BSA (cm/m^2): 2.5 LV sys. diameter/BSA (cm/m^2): 2.0 LA A2 area: 28.1 cm2 RA long axis: 7.1 cm LA A4 area: 29.6 cm2 RA area: 25.5 cm2 LA length (vol): 7.3 cm RA vol: 78.1 ml LA vol: 97.0 ml RA : 43.8 ml/m2 LA vol index: 54.4 ml/m2 TAPSE: 1.5 cm Doppler Measurements & Calculations Ao V2 max: 107.8 cm/sec LVOT Max Glenn: 69.4 cm/sec Ao V2 mean: 82.7 cm/sec LV V1 max P.9 mmHg Ao max P.7 mmHg LV V1 VTI: 12.3 cm Ao mean P.0 mmHg CAT(I,D): 2.1 cm2 Ao V2 VTI: 17.6 cm CAT(V,D): 2.0 cm2 sev ratio: 0.70 CAT indexed to BSA (cm^2/m^2): 1.2 TR max glenn: 265.7 cm/sec SV(LVOT): 37.7 ml TR max P.2 mmHg
== END ==
PROVIDERS: Family Provider Internal Medicine; PCP Internal Medicine; Referring Provider Nurse Practitioner Family; Visit Provider Nurse Practitioner Family
DX: R60.9 Edema, unspecified (principal); R06.02 Shortness of breath; I08.3 Combined rheumatic disorders of mitral, aortic and tricuspid valves
CPT/HCPCS: C8929; Q9957

== ENCOUNTER → 2021-11-12 09:00 | Outpatient (CLI) | payer OTHER, SELFPAY ==
--- NOTE | 2021-11-12 | DI.MRI.S_ITS ---
PROCEDURE: MR LUMBAR SPINE WO CON INDICATIONS: Spinal stenosis, lumbar region without neurogenic TECHNIQUE: Noncontrast sagittal T1 spin echo and T2 fast echo, sagittal STIR, and T2 fast spin echo through the lumbar spine. In cases with scoliosis, additional coronal T2 fast spin echo may be performed. COMPARISON: [facility], CT, CT ABDOMEN PELVIS W CON, 05/19/2021, 14:00. [facility] [place], CR, XR LUMBAR SPINE 2 OR 3 VIEWS, 10/14/2021, 11:42. FINDINGS: Image quality: This examination is limited by involuntary motion artifact. Alignment and Curvature: There is normal bony alignment. Bone Marrow: Marrow is of normal overall signal. Scattered foci are seen, which are hyperintense on T1-weighted and T2-weighted imaging, which are most consistent with benign vertebral body hemangiomas. No acute vertebral body compression fractures. Spinal Cord: Conus medullaris terminates at the L1 level. Visualized cord demonstrates normal signal and size. Paraspinous Soft Tissues: No paravertebral masses. T10-T11: There is a posteriorly projected endplate osteophyte seen, with moderate to severe central canal narrowing and mass effect upon the ventral spinal cord. The bony nature of this osteophyte is better seen on the prior CT study dated 05/19/2021. No significant neural foraminal narrowing can be seen. T11-T12: No significant abnormality is seen. T12-L1: Level within normal limits. L1-L2: Normal appearance. L2-L3: The disc height is well-preserved. Loss of disc signal is seen at this level. Mild generalized disc bulge is seen. Mild to moderate facet hypertrophy is seen. There is [id number] left-sided and no significant right-sided neural foraminal narrowing. Mild to moderate central canal narrowing is seen. L3-L4: The disc height is well-preserved. Loss of disc signal is seen at this level. Moderate generalized disc bulge is seen. Moderate facet joint hypertrophy is seen. There is [id number] right-sided and moderate left-sided neural foraminal narrowing. Moderate central canal narrowing is seen. L4-L5: Mild loss of disc height is seen. Loss of disc signal is seen. Moderate disc bulge is seen, which is eccentric to the right side. At least moderate facet hypertrophy is seen at this level. There is at least moderate bilateral neural foraminal narrowing seen, right worse than left. There is a degree of compression seen upon the exiting nerve roots. Moderate central canal narrowing is seen. L5-S1: The disc height is well-preserved. Loss of disc signal is seen at this level. Mild disc bulge is seen, with a central disc protrusion.22There is a focal annular fissure seen posteriorly. At least moderate facet hypertrophy is seen at this level. No significant neural foraminal or central canal narrowing can be seen. 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 (This was previously seen by CT.) Milder degenerative changes are seen elsewhere. An annular fissure is noted posteriorly at L5-S1. Dictated by: Wilian Rivas M.D. on 11/12/2021 at 10:47 Approved by: Wilian Rivas M.D. on 11/12/2021 at 10:54
== END ==
PROVIDERS: PCP Internal Medicine; Referring Provider Physical Medicine & Rehabilitation; Visit Provider Physical Medicine & Rehabilitation
DX: M48.061 Spinal stenosis, lumbar region without neurogenic claudication (principal); M48.04 Spinal stenosis, thoracic region; M51.27 Other intervertebral disc displacement, lumbosacral region; M47.816 Spondylosis without myelopathy or radiculopathy, lumbar region; M47.817 Spondylosis without myelopathy or radiculopathy, lumbosacral region; M25.78 Osteophyte, vertebrae
CPT/HCPCS: 72148

== ENCOUNTER → 2021-11-17 07:06 | Outpatient (ROUT) | payer OTHER, SELFPAY ==
[2021-11-17 08:36] LABS: Add Manual Diff / Slide Review NO; Basophils Absolute Auto 0 /uL (0-100); Basophils Percent Auto 0.7 % (0-2); Eosinophils Absolute Auto 300 /uL (0-450); Eosinophils Percent Auto 4.9 % (2-4); Lymphocytes Absolute Auto 2000 /uL (1100-4500); Mean Corpuscular HGB Conc 34.3 % (30-36); Mean Corpuscular Hemoglobin 30.5 PG (26-34); Monocytes Absolute Auto 400 /uL (0-900); Monocytes Percent Auto 6.6 % (3-14); Neutrophils Absolute Auto 3200 /uL (1500-7000); Neutrophils Percent Auto 54.8 % (50-75); Platelet Count 206 X10^3/uL (150-400); Red Blood Cell Count 3.93 X10^6/uL (4.0-5.2); Red Cell Distribution Width 15.3 % (11.6-14.8); White Blood Cell Count 5.9 X10^3/uL (4.5-11.0)
[2021-11-17 08:40] LABS: BUN Creatinine Ratio 8.8 (6-22); Blood Urea Nitrogen 9 mg/dL (7-17); Calcium 9.2 mg/dL (8.4-10.2); Carbon Dioxide 32 mmol/L (22-32); Chloride 103 mmol/L (98-107); Estimated Glomerular Filt Rate 54 mL/min (>60); Glucose 82 mg/dL (80-110); HEMOLYSIS < 15 (0-50); Potassium 4.2 mmol/L (3.4-5.1); Sodium 138 mmol/L (137-145)
== END ==
PROVIDERS: PCP Internal Medicine; Visit Provider Nurse Practitioner Family
DX: I48.91 Unspecified atrial fibrillation (principal); R60.9 Edema, unspecified; D64.9 Anemia, unspecified
CPT/HCPCS: 36415; 80048; 85025

== ENCOUNTER → 2021-12-23 12:30 | Outpatient (CLI) | payer MEDICARE, SELFPAY ==
--- NOTE | 2021-12-23 12:34 | DI.RAD.S_ITS ---
PROCEDURE: FL BARIUM SWALLOW W SPEECH INDICATIONS: DYSPHAGIA/COUGH COMPARISON: None. TECHNIQUE: Examination was conducted in conjunction with speech pathology per standard protocol. In the lateral projection, filming was performed of the patient swallowing. AP projection filming may also be performed with patient swallowing. COMPARISON: FINDINGS: Function: The oral preparatory phase appears normal, with proper containment. The subsequent oral propulsive phase, pharyngeal phase, and esophageal phase of swallowing also appear normal with all proffered substances. No laryngotracheal penetration or aspiration. No pathologic vallecular pooling. Morphology: No cricopharyngeal bar is identified. No cervical esophageal webs. No Zenker's diverticulum. No strictures. There is a small hiatal hernia. A calibrated barium tablet passes normally through the esophagus into the stomach. IMPRESSION: 1. No laryngeal penetration or tracheobronchial aspiration. 2. Small hiatal hernia. Of note, please see independent report generated by the speech pathologist for further detailed specifics and characterization of the modified speech swallow study. Dictated by: Dave Rea M.D. on 12/23/2021 at 14:55 Approved by: Dave Rea M.D. on 12/23/2021 at 15:03
--- NOTE | 2021-12-23 16:13 | ST.SWALLOW ---
Visit Care Team Role Provider Type Pooja Root MD Primary Care Provider Physician Specialty: Medical Address: [address] [address], [place], [address] Email: VINH Segura Attending Provider Non-Staff Referring Provider Specialty: Medical Address: [address] [place] [address], [id number] Email: Modified Barium Swallow Study HAND IRONER Modified Barium Swallow Study Start: 12/23/21 15:50 Freq: Status: Active Protocol: Document 12/23/21 15:50 ZS (Rec: 12/23/21 16:13 ZS [id number]) Modified Barium Swallow Study Total Time Visit Start Time 13:30 Visit Stop Time 13:55 Total Visit Minutes 25 Setting Setting Outpatient Care Patient Information Identification Type Name Patient History Tali is an 86-year-old female with a history of AFib, acute confusion and possible dementia, acute encephalopathy , GERD, and a stroke 15+ years ago. She was referred for a modified barium swallow study due to trouble swallowing, reporting food gets stuck in her throat and chest area and is painful when she tries to swallow. Pt stated this problem is across all food textures and has no visible pattern. She added that she avoids tough foods (e.g., tough meats). Pt reported she has lumps in her throat that have been medically examined. She added the lumps have improved over the past 6-8 months and the swallowing difficulties arose over the past 3-4 months. Subjective Observations The pt arrived on time and transported via wheelchair. She transitioned to exam chair with 2-person assist. Procedure and process explained and pt expressed understanding and agreed to participate. Patient Positioning Position View Lat-A/P Imaging Lateral View Textures Administered Trials Presented Thin Liquid via Cup,[place] Liquid via Cup,Regular Textures Oral Phase Source: MBSIMP (TM) (C) Bolus Specific Scoring Grid Lip Closure Minimal Impairment Tongue Control During Bolus Hold Mild Impairment Bolus Prep/Mastication No Impairment (WNL) Bolus Transport/Lingual Motion No Impairment (WNL) A/P Lingual Propulsion Delay No Oral Residue Mild Impairment Residue Clearing No Impairment (WNL) Nasal Regurgitation No Additional Oral Phase Observations Interlabial escape was observed with pudding thick barium, though no progression to anterior lip. No posterior loss of bolus on initial swallow of thin liquid during tongue hold. Posterior loss of bolus suspected on second swallow of thin liquid as residue was observed in valleculae prior to swallow that was not present after initial swallow. Mastication and a/p propulsion were timely and efficient. She exhibited mild residue following all trials, which was cleared with a spontaneous second swallow. Pharyngeal Phase Source: MBSIMP (TM) (C) Bolus Specific Scoring Grid Delayed Initiation of Pharyngeal Swallow Yes: head of bolus in pyriforms Soft Palate Elevation No Impairment (WNL) Tongue Base Strength/Range of Motion No Impairment (WNL) Residue Along the Tongue Base Yes Clearance of Residue Along Tongue Base No Impairment (WNL) Laryngeal Elevation No Impairment (WNL) Anterior Hyoid Movement Moderate Impairment Epiglottic Range of Motion No Impairment (WNL) Vallecular Residue Yes Clearance of Vallecular Residue No Impairment (WNL) Laryngeal Vestibular Closure No Impairment (WNL) Pharyngeal Stripping Wave Moderate Impairment Pharyngeal Contraction No Impairment (WNL) Posterior Pharyngeal Wall Residue No Upper Esophageal Sphincter Opening No Impairment (WNL) Residue in the Pyriform Sinuses Yes Clearance of Residue in the Pyriform No Impairment (WNL) Sinuses Esophageal Clearance Upright Position No Impairment (WNL) Pharyngoesophageal Backflow Observed No Additional Pharyngeal Phase Observations Delayed initiation of pharyngeal swallow, with head of bolus in pyriforms at initiation. Hyoid elevation and excursion were moderately impaired, though laryngeal elevation, epiglottic movement , and laryngeal vestibular closure were WNL. Pharyngeal stripping wave was moderately impaired, though pt did not exhibit difficulty with transportation of bolus and minimal to mild residue was observed following swallows. Residue was cleared with a spontaneous second swallow. A/P View Textures Administered Trials Presented Thin Liquid via Cup,Barium Tablet A/P View Observations Pharyngeal Contraction No Impairment (WNL) Esophageal Function WFL,Slowed Clearing,Narrowing Esophageal Clearance Upright Position WFL Additional Observations Pt exhibited minimally slowed clearing of bolus through esophagus and narrowing was observed with thin liquid, but did not appear to significantly impact passage of barium or tablet through esophagus. Pt may benefit from referral for GI as she had reported pain on swallowing when food gets stuck though function was WFL. Clinical Impressions Dysphagia Type Swallow WFL Findings The pt presents with swallowing WFL. Minimal to mild base of tongue weakness observed, which impacts pt's ability to hold bolus in tongue prior to swallowing and resulted in pooling of liquid in valleculae prior to initiating swallow. Delayed initiation of pharyngeal swallow observed with head of the bolus in the pyriforms. Hoyid elevation and excursion were moderately impaired, but did not appear to impact laryngeal vestibular closure. Pt exhibited residue in valleculae, pyriforms, and base of tongue, which she cleared with a spontaneous second swallow. Function appears WFL, though pt may benefit from speech therapy to increase base of tongue strength if increased coughing is observed during meals. Provided two base of tongue exercises to pt and she demonstrated understanding of these. Narrowing and minimally slowed clearing of barium and tablet through esophagus observed, though clearing was WFL. As pt was reporting pain with swallowing when food gets stuck, she may benefit from a referral to GI if these problems persist or worsen. Pt expressed understanding and agreement with referrals and is not interested in pursuing any at this time, though will consider if problems worsen. Rehabilitation Potential Good Patient Appropriate for Therapy Yes Recommendations Diet Liquids Order Thin Diet Order Regular Medication Recommendation As Tolerated Aspiration Precautions Recommended Precautions Upright at 90 Degrees,Small Bites/Sips Treatment Plan Therapy Recommendations Outpatient Speech Therapy,Base of Tongue Exercises Recommended Referrals GI Consult Compensatory Strategies Recommendations Sitting Upright (90 deg),Small Bites and Sips
== END ==
PROVIDERS: PCP Internal Medicine; Referring Provider Nurse Practitioner Family; Visit Provider Nurse Practitioner Family
DX: R13.10 Dysphagia, unspecified (principal); R05.8 Other specified cough; K44.9 Diaphragmatic hernia without obstruction or gangrene
CPT/HCPCS: 74230; 92611

== ENCOUNTER → 2021-12-29 12:50 | Outpatient (CLI) | payer MEDICARE, SELFPAY ==
--- NOTE | 2021-12-29 | DI.US.S_ITS ---
PROCEDURE: US EXTREMELY NONVASC UPPER RT INDICATIONS: SOFT TISSUE MASS RIGHT BICEP TECHNIQUE: Real-time scanning was performed of the right upper arm, with image documentation. COMPARISON: None. FINDINGS: Focused ultrasound examination of right upper arm near antecubital fossa shows no discrete soft tissue mass or fluid collection. IMPRESSION: No abnormality is seen at patient's reported area of palpable lump. Dictated by: Kraig Landry M.D. on 12/29/2021 at 17:05 Approved by: Kraig Landry M.D. on 12/29/2021 at 17:06
== END ==
PROVIDERS: PCP Internal Medicine; Referring Provider Nurse Practitioner Gerontology; Visit Provider Nurse Practitioner Gerontology
DX: M79.89 Other specified soft tissue disorders (principal)
CPT/HCPCS: 76882

== ENCOUNTER 2022-01-08 08:48 | Emergency (ER) | payer MEDICARE, SELFPAY ==
[2022-01-08 08:56] VITALS: BP 149/89; PULSE 114; RESP 20; TEMP 36.9; O2SAT 93; BMI 33.1
--- NOTE | 2022-01-08 08:56 | DI.RAD.S_ITS ---
PROCEDURE: XR RIBS LT MIN 3V W CXR1V INDICATIONS: left chest pain s/p fall TECHNIQUE: 2 views of the LEFT ribs were acquired, along with a single view chest. COMPARISON: [facility], CT, CT CHEST WO [facility], 06/24/2021, 15:19. [facility], CT, CT FACIAL [place] WO CON, 01/08/2022, 9:26. [facility], CT, CT HEAD/BRAIN WO CON, 01/08/2022, 9:26. FINDINGS: Surgical changes and devices: None. Bones and chest wall: A marker is placed upon the area of clinical concern. Within this region, no displaced rib fracture or other significant rib abnormality can be seen. No rib fractures are seen elsewhere. No suspicious bony lesions. Age-appropriate bony degenerative changes are seen. Overlying soft tissues appear unremarkable. Lungs and pleura: No pleural effusions or pneumothorax. Lungs appear clear. Mediastinum: Mediastinal contours appear normal. Heart size is normal. IMPRESSION: No displaced rib fractures are seen. No pneumothorax. Dictated by: Wilian Rivas M.D. on 01/08/2022 at 8:34 Approved by: Wilian Rivas M.D. on 01/08/2022 at 8:36
--- NOTE | 2022-01-08 09:06 | DI.CT.S_ITS ---
PROCEDURE: CT CERVICAL SPINE WO CON INDICATIONS: s/p fall 2 weeks, facial bruising, on xarelto TECHNIQUE: Noncontrast 3 mm thick sections acquired from the skull base to the T4 level. Sagittal and coronal reformats were then constructed. For radiation dose reduction, the following was used: automated exposure control, adjustment of mA and/or kV according to patient size. COMPARISON: [facility], MR, MR CERVICAL SPINE WO CON, 08/20/2021, 16:45. [facility], CT, CT FACIAL [place]ON[place] WO CON, 01/08/2022, 9:26. [facility], CT, CT HEAD/BRAIN WO CON, 01/08/2022, 9:26. FINDINGS: Image quality: Excellent. Bones: No fractures or dislocations. Visualized superior ribs are intact. Degenerative changes are seen which are worst involving the C1-C2 interface anteriorly and the C5-C6 level. Soft tissues: Prevertebral soft tissues are normal in thickness. No paravertebral hematomas. No apical pneumothoraces. Atherosclerotic calcification is noted. IMPRESSION: Negative for fracture. Degenerative changes are seen. Dictated by: Wilian Rivas M.D. on 01/08/2022 at 8:39 Approved by: Wilian Rivas M.D. on 01/08/2022 at 8:41
--- NOTE | 2022-01-08 09:06 | ED_ITS ---
HPI - Fall General Chief Complaint: Fall Stated Complaint: Fall Time Seen by Provider: 01/08/22 08:55 Source: patient and EMS Mode of arrival: EMS Limitations: no limitations History of Present Illness HPI Narrative: This is an 6-year-old female on Xarelto with history of atrial fibrillation, dementia and prior stroke that lives at [facility]. Patient had ground level fall approximately 1 to 2 weeks ago she presents with complaint of left-sided chest pain that has been persistent and not improving since then. Patient has obvious bruising over the left eye. She states she was having some blurry vision she states it is better right now. She has had some headaches, she describes some neck pain. Patient denies any current shortness of breath. Patient states she has not been having any increasing shortness of breath, no nausea or vomiting no other GI or urinary symptoms currently. Patient states swelling around her left eye it was significant and has been improving she has had persistent left-sided chest discomfort particularly with inhalation or movement. Patient states she did notice any bruising on her chest. She is had some bruising on her knees. She states she does not ambulate she is in a wheelchair time broker. She is on Xarelto for atrial fibrillation she had some medications this morning but does not know if she had her diltiazem. Patient denies any loss of consciousness. No new swelling of extremities. Related Data Home Medications Medication Instructions Recorded Confirmed gabapentin 300 mg capsule 300 mg PO BID 08/07/17 03/13/19 furosemide 20 mg tablet 20 mg PO DAILY 12/07/17 03/13/19 lubiprostone 24 mcg capsule 24 mcg PO DAILY 12/07/17 03/13/19 (Amitiza) aspirin 81 mg tablet,delayed 81 mg PO DAILY 12/26/17 03/13/19 release metoprolol succinate 50 mg 50 mg PO DAILY 12/26/17 03/13/19 tablet,extended release 24 hr doxepin 100 mg capsule 100 mg PO BEDTIME 01/23/18 03/13/19 diltiazem HCl 180 mg 180 mg PO DAILY 10/10/18 03/13/19 capsule,extended release 24 hr escitalopram oxalate 20 mg tablet 20 mg PO DAILY 10/10/18 03/13/19 gabapentin 600 mg tablet 600 mg PO BEDTIME 10/10/18 03/13/19 nystatin 100,000 unit/gram topical 1 applic topical BID 10/10/18 03/13/19 powder omeprazole 20 mg capsule,delayed 20 mg PO DAILY 10/10/18 03/13/19 release potassium chloride 10 mEq 10 meq PO QPM 10/10/18 03/13/19 tablet,extended release acetaminophen 325 mg tablet 325 mg PO Q6H PRN Pain 01/09/19 03/13/19 calcium carbonate 500 mg calcium 500 mg PO DAILY 01/09/19 03/13/19 (1,250 mg) tablet (Oyster Shell Calcium 500) cholecalciferol (vitamin D3) 50 2,000 unit PO DAILY 01/09/19 03/13/19 mcg (2,000 unit) tablet (Vitamin D3) rivaroxaban 20 mg tablet (Xarelto) 20 mg PO DAILY 01/09/19 03/13/19 rosuvastatin 40 mg tablet 40 mg PO DAILY 01/09/19 03/13/19 Previous Rx's Medication Instructions Recorded polyethylene glycol 3350 17 gram 17 gm PO DAILY #1 pkg 10/13/18 oral powder packet oxycodone 5 mg tablet 5 - 10 mg PO Q4H PRN pain #50 tabs 01/09/19 ciprofloxacin HCl 500 mg tablet 500 mg PO Q12H #14 tabs 03/13/19 Allergies Allergy/AdvReac Type Severity Reaction Status Date / Time Sulfa (Sulfonamide Allergy Intermediate Rash Verified 05/28/21 11:19 Antibiotics) Review of Systems Review of Systems ROS Unobtainable: All systems reviewed & are unremarkable except as noted in HPI and below Patient History Medical History (Updated 01/08/22 @ 09:59 by Zoe Estrella DO) Chronic pain Dementia Depression GERD (gastroesophageal reflux disease) Herpes encephalitis History of lumbar puncture (08/29/18) Hyperlipidemia Hypertension Hypoxia (10/10/18) Impaired fasting glucose Pulmonary fibrosis Stroke Surgical History History of ankle surgery (10/11/18) Social History details: two years ago number of children: 2 household members: none lives independently: Yes caregiver/support person: Yes housing: apartment other: Denies alcohol drinking or cigarette smoking. Her son of overdose 1 w Smoking Status: Former smoker alcohol intake: current Smoking Status: Former smoker alcohol intake frequency: holidays/special occasions only Substance Use Type: does not use Exam Narrative Exam Narrative: GEN: Patient appears in mild distress. HEAD: Patient has left periorbital ecchymosis, no swelling of the lids themselves, greenish discoloration indicating likely not acute with some tracking down the left cheek, mildly tender around the eye no exquisite tenderness., no raccoon/Fitch sign. NECK: Nontender, painless range of motion, trachea midline Negative for Nexus criteria, there is some mild mid line tenderness, no distracting injury, altered mental status, neuro deficit, recent EtOH. EYES: PERRLA, EOMI ENT: External inspection normal, trachea is midline, TM's are normal no hemotypanum, Nares are clear, no septal hematoma, no dental or oral injury, airway is normal and with normal occlusion, No bony tenderness RESP: Chest is tender on the left and has symmetric movement, no ecchymosis, breath sounds are normal no crackles, wheezes or rales, no ecchymosis, no flail chest. CVS: Heart sounds are normal, no murmur noted, No JVD. Irregularly irregular. Patient ranges between 90s and 110s for HR. ABG/GI: Nontender, soft, normal bowel sounds, no distention, no organomegaly, pelvic rock is negative NEURO: Oriented AOx3, neuro is grossly intact, sensation and motor is normal all 4 extremities moving, cranial nerves II through XII are intact, GCS is 14 PSYCH: Normal mood and affect SKIN: Intact, warm and dry, no crepitus and without decubitus BACK: No CVA tenderness, no vertebral tenderness, no step-off's, no crepitus EXT: Patient has ecchymosis of bilateral knees no discrete bony tenderness of extremities. Hips are nontender, no pedal edema, normal color and temperature, normal range of motion of extremities with normal tendon exam, 2+ pulses in all four extremities Initial Vital Signs Initial Vital Signs: Vital Signs Temperature 98.4 F 01/08/22 08:56 Pulse Rate 114 H 01/08/22 08:56 Respiratory Rate 20 01/08/22 08:56 Blood Pressure 149/89 H 01/08/22 08:56 Pulse Oximetry 93 01/08/22 08:56 Oxygen Delivery Method 01/08/22 08:56 Course Orders Ordered: ED Orders 01/08/22 09:29 EKG-12 Lead Routine Discontinued Medications Diltiazem HCl (Diltiazem Cd 180 Mg Cap) 180 mg PO NOW ONE Stop: 01/08/22 09:54 Last Admin: 01/08/22 10:20 Dose: 180 mg Documented By: MAIRA Vital Signs Vital signs: Vital Signs - 8 hr 01/08/22 08:56 Temperature 98.4 F Pulse Rate 114 H Respiratory Rate 20 Blood Pressure 149/89 H Pulse Oximetry 93 Oxygen Delivery Method Room Air MDM - Fall Imaging Data CT scan - head: Radiologist's Impression: Tali Burton??86??F??1935 ? Allergy/Adv: Sulfa (Sulfonamide Antibiotics) (More??) Close Head CT (Signed) Wilian Rivas - 01/08/[address] (Signed) Wilian Rivas - 01/08/[address] (Signed) Wilian Rivas - 01/08/22 Ribs X-Ray (Signed) Wilian Rivas - 01/08/22 Extremity Ultrasound (Signed) Kraig Landry - 12/29/21 Modified Barium Swallow (Signed) Dave Rea - 12/23/21 Lumbar Spine MRI (Signed) Wilian Rivas - 11/12/21 Echocardiogram Ultrasound (Cancelled) 10/29/21 Shoulder X-Ray (Signed) Janelle Fu - 10/19/21 Cervical Spine MRI (Signed) Dejuan Holland - 08/20/[address] (Signed) Dejuan Holland - 06/24/[address] (Signed) Rebeca De Los Santos - 06/24/[address] (Signed) Janelle Fu - 05/28/21 Abdomen/Pelvis CT (Signed) Dejuan Holland - 05/19/21 Knee X-Ray (Signed) Dave Rea - 04/20/21 Knee X-Ray (Signed) Abigail Sands - 04/20/21 Abdomen/Pelvis CT (Signed) Wilian Rivas - 09/05/[address] (Signed) Abigail Sands - 06/25/20 Abdomen/Pelvis CT (Signed) Fu,Janelle - 06/06/20 Brain MRI (Signed) Wilian Rivas - 03/18/20 Pelvis X-Ray (Signed) Ok Subramanian - 02/22/[address] (Signed) Ok Subramanian - 02/22/[address] (Signed) Chilo Haas - 02/14/20 Bone Densitometry 02/05/20 Echocardiogram Ultrasound (Signed) Jass Hunt - 11/29/19 Myocardial Perfusion Scan Nuc Med (Signed) Jose Parham - 11/29/19 Chest X-Ray (Signed) Abigail Sands - 10/07/19 Chest X-Ray (Signed) Willie Weeks - 09/04/19 Echocardiogram Ultrasound (Signed) Raimundo Asif - 06/07/19 Chest X-Ray (Signed) Willie Weeks - 05/20/19 Chest X-Ray (Signed) Shanae Burk - 03/13/19 Telemetry Strips 01/09/19 Ankle X-Ray (Signed) Matthieu Gibson - 01/09/[address] (Signed) Kraig Landry - 12/27/18 Chest X-Ray (Signed) Lenny Doyle - 10/12/18 Ankle X-Ray (Signed) Anthony Taylor - 10/11/18 Telemetry Strips 10/10/18 Ankle X-Ray (Signed) Ok Subramanian - 10/10/18 Chest X-Ray (Signed) Ok Subramanian - 10/10/18 Ankle X-Ray (Signed) Kraig Landry - 10/10/18 EKG Rpt. 10/10/18 Brain MRI (Signed) Wilian Rivas - 08/30/18 Chest X-Ray (Signed) Yun Albarran - 08/30/18 Telemetry Strips 08/29/18 Telemetry Strips 08/29/18 Telemetry Strips 08/29/18 Bladder Scan 08/29/[address] (Signed) Willie Weeks - 08/29/18 Chest X-Ray (Signed) Lenny Doyle - 08/29/18 Knee X-Ray (Signed) Willie Weeks - 05/09/18 Brain MRI (Signed) Chilo Haas - 03/13/18 Myocardial Perfusion Scan Nuc Med (Signed) Jose Parham - 01/30/18 Chest X-Ray (Signed) Yun Albarran - 01/23/18 Outside EKG 01/23/[address] (Signed) Janelle Fu - 12/26/17 Chest X-Ray (Signed) Yun Albarran - 12/26/17 Chest X-Ray (Signed) Yun Albarran - 12/07/[address] (Signed) Yun Albarran - 12/07/17 Outside EKG 12/07/17 Launch?[place] [address] CT Scan Report Signed Patient: Tali Burton MR#: [id number] : 1935 Acct:[id number] Age/Sex: 86 / F Date of Service: 01/08/22 Loc: ED Accession Number: [id number] ?? Procedure: CT head/brain wo con Ordering Provider: Zoe Estrella D.O. PROCEDURE:? CT HEAD/BRAIN WO CON ? INDICATIONS:? s/p fall 2 weeks, facial bruising, on xarelto ? TECHNIQUE:? Noncontrast 4.5 mm thick angled axial sections acquired from the foramen magnum to the vertex, with coronal and sagittal reformats.? For radiation dose reduction, the following was used:? automated exposure control, adjustment of mA and/or kV according to patient size.? ? COMPARISON:? [facility], CT, CT HEAD/BRAIN WO CON, 06/25/2020, 23:57.? [facility], CT, CT HEAD/BRAIN WO CON, 05/28/2021, 12:01.? [facility], CR, XR RIBS LT MIN 3V W CXR1V, 01/08/2022, 8:59.? [facility], CT, CT CERVICAL SPINE WO CON, 01/08/2022, 9:26.? [facility], CT, CT FACIAL BONES WO CON, 01/08/2022, 9:26. ? FINDINGS:? Image quality:? Excellent.? ? CSF spaces:? Basal cisterns are patent.? No extra-axial fluid collections.? The ventricles are symmetric in size and shape.? ? Brain:? No intracranial bleeds or masses.? There is cerebral volume loss for age, with resultant ventricular and sulcal prominence.? There are periventricular and deep white matter chronic small vessel ischemic changes.? There is intracranial internal carotid artery atherosclerosis.? ? Skull and face:? Calvarium and visualized facial bones appear intact, without suspicious lesions.? ? Sinuses:? Visualized sinuses and mastoids are clear.? ? IMPRESSION:? No acute intracranial hemorrhage is seen.? ? No acute intracranial process is seen.? ? Note is made of age-appropriate brain parenchymal volume loss and chronic small vessel ischemic changes. ? ? Dictated by: Wilian Rivas M.D. on 01/08/2022 at 8:36 ? ? Approved by: Wilian Rivas M.D. on 01/08/2022 at 8:39?? CT facial bones: Radiologist's Impression: Tali Burton??86??F??1935 ? Allergy/Adv: Sulfa (Sulfonamide Antibiotics) (More??) Close Head CT (Signed) Wilian Rivas - 01/08/[address] (Signed) Wilian Rivas - 01/08/[address] (Signed) Wilian Rivas - 01/08/22 Ribs X-Ray (Signed) Wilian Rivas - 01/08/22 Extremity Ultrasound (Signed) Kraig Landry - 12/29/21 Modified Barium Swallow (Signed) Dave Rea - 12/23/21 Lumbar Spine MRI (Signed) Wilian Rivas - 11/12/21 Echocardiogram Ultrasound (Cancelled) 10/29/21 Shoulder X-Ray (Signed) Janelle Fu - 10/19/21 Cervical Spine MRI (Signed) Dejuan Holland - 08/20/[address] (Signed) Dejuan Holland - 06/24/[address] (Signed) Rebeca De Los Santos - 06/24/[address] (Signed) Janelle Fu - 05/28/21 Abdomen/Pelvis CT (Signed) Skyler,Dejuan - 05/19/21 Knee X-Ray (Signed) Dave Rea - 04/20/21 Knee X-Ray (Signed) Abigail Sands - 04/20/21 Abdomen/Pelvis CT (Signed) Wilian Rivas - 09/05/[address] (Signed) Abigail Sands - 06/25/20 Abdomen/Pelvis CT (Signed) Janelle Fu - 06/06/20 Brain MRI (Signed) Wilian Rivas - 03/18/20 Pelvis X-Ray (Signed) Ok Subramanian - 02/22/[address] (Signed) Ok Subramanian - 02/22/[address] (Signed) Chilo Haas - 02/14/20 Bone Densitometry 02/05/20 Echocardiogram Ultrasound (Signed) Jass Hunt - 11/29/19 Myocardial Perfusion Scan Nuc Med (Signed) Jose Parham - 11/29/19 Chest X-Ray (Signed) Abigail Sands - 10/07/19 Chest X-Ray (Signed) Willie Weeks - 09/04/19 Echocardiogram Ultrasound (Signed) Raimundo Asif - 06/07/19 Chest X-Ray (Signed) Willie Weeks - 05/20/19 Chest X-Ray (Signed) Shanae Burk - 03/13/19 Telemetry Strips 01/09/19 Ankle X-Ray (Signed) Matthieu Gibson - 01/09/[address] (Signed) Kraig Landry - 12/27/18 Chest X-Ray (Signed) Lenny Doyle - 10/12/18 Ankle X-Ray (Signed) Anthony Taylor - 10/11/18 Telemetry Strips 10/10/18 Ankle X-Ray (Signed) Ok Subramanian - 10/10/18 Chest X-Ray (Signed) Ok Subramanian - 10/10/18 Ankle X-Ray (Signed) Kraig Landry - 10/10/18 EKG Rpt. 10/10/18 Brain MRI (Signed) Wilian Rivas - 08/30/18 Chest X-Ray (Signed) Yun Albarran - 08/30/18 Telemetry Strips 08/29/18 Telemetry Strips 08/29/18 Telemetry Strips 08/29/18 Bladder Scan 08/29/[address] (Signed) Willie Weeks - 08/29/18 Chest X-Ray (Signed) Lenny Doyle - 08/29/18 Knee X-Ray (Signed) Willie Weeks - 05/09/18 Brain MRI (Signed) Chilo Haas - 03/13/18 Myocardial Perfusion Scan Nuc Med (Signed) Jose Parham - 01/30/18 Chest X-Ray (Signed) Yun Albarran - 01/23/18 Outside EKG 01/23/[address] (Signed) Janelle Fu - 12/26/17 Chest X-Ray (Signed) Yun Albarran - 12/26/17 Chest X-Ray (Signed) Yun Albarran - 12/07/[address] (Signed) Yun Albarran - 12/07/17 Outside EKG 12/07/17 Launch?[place] [address] CT Scan Report Signed Patient: Tali Burton MR#: [id number] : 1935 Acct:[id number] Age/Sex: 86 / F Date of Service: 01/08/22 Loc: ED Accession Number: [id number] ?? Procedure: CT facial bones wo con Ordering Provider: Zoe Estrella D.O. PROCEDURE:? CT FACIAL BONES WO CON ? INDICATIONS:? s/p fall 2 weeks, facial bruising, on xarelto ? TECHNIQUE:? Noncontrast 2.5 mm thick axial images acquired from the mandible through the frontal sinuses, with coronal and sagittal reformatting.? For radiation dose reduction, the following was used:? automated exposure control, adjustment of mA and/or kV according to patient size.? ? COMPARISON:? [facility], CT, CT CERVICAL SPINE WO CON, 01/08/2022, 9:26.? [facility], CT, CT HEAD/BRAIN WO CON, 01/08/2022, 9:26. ? FINDINGS:? Image quality:? Excellent.? ? Bones and teeth:? Orbital goodwin are intact.? Sinus goodwin show no fracture or deformity.? Nasal bones and septum are intact.? Visualized portions of the mandible demonstrate no fractures or subluxation.? Zygomatic arches are intact.? Pterygoid plates are intact.? Visualized portions of the skull base and auditory canals are intact.? Degenerative changes are seen, including involving the visualized cervical spine. ? Sinuses:? Paranasal sinuses are aerated, without fluid levels, mucosal thickening, or mucoceles.? Mastoid air cells are aerated.? ? Soft tissues:? No edema, masses, or fluid collections.? No enlarged lymph nodes.? No soft tissue lacerations or debris.? ? Vascular:? Visualized vascular structures appear normal in the absence of contrast.? Bony vascular foramina and canals are intact.? ? ? IMPRESSION:? Negative for displaced fracture. ? ? Dictated by: Wilian Rivas M.D. on 01/08/2022 at 8:41 ? ? Approved by: Wilian Rivas M.D. on 01/08/2022 at 8:42?? Ct cervical spine: Radiologist's Impression: [place] [address] CT Scan Report Signed Patient: Tali Burton MR#: [id number] : 1935 Acct:[id number] Age/Sex: 86 / F Date of Service: 01/08/22 Loc: ED Accession Number: [id number] ?? Procedure: CT cervical spine wo con Ordering Provider: Zoe Estrella D.O. PROCEDURE:? CT CERVICAL SPINE WO CON ? INDICATIONS:? s/p fall 2 weeks, facial bruising, on xarelto ? TECHNIQUE:? Noncontrast 3 mm thick sections acquired from the skull base to the T4 level.? Sagittal and coronal reformats were then constructed.? For radiation dose reduction, the following was used:? automated exposure control, adjustment of mA and/or kV according to patient size.? ? COMPARISON:? [facility], MR, MR CERVICAL SPINE WO CON, 08/20/2021, 16:45.? [facility], CT, CT FACIAL BONES WO CON, 01/08/2022, 9:26.? [facility], CT, CT HEAD/BRAIN WO CON, 01/08/2022, 9:26. ? FINDINGS:? Image quality:? Excellent.? ? Bones:? No fractures or dislocations.? Visualized superior ribs are intact.? ? Degenerative changes are seen which are worst involving the C1-C2 interface anteriorly and the C5-C6 level. ? Soft tissues:? Prevertebral soft tissues are normal in thickness.? No paravertebral hematomas.? No apical pneumothoraces.? Atherosclerotic calcification is noted.? ? ? IMPRESSION:? Negative for fracture. ? Degenerative changes are seen. ? ? ? Dictated by: Wilian Rivas M.D. on 01/08/2022 at 8:39 ? ? Approved by: Wilian Rivas M.D. on 01/08/2022 at 8:41 rib/CXR: Radiologist's Impression: [address] [address] XRay Report Signed Patient: Tali Burton MR#: [id number] : 1935 Acct:[id number] Age/Sex: 86 / F Date of Service: 01/08/22 Loc: ED Accession Number: [id number] ?? Procedure: XR ribs LT min 3V w CXR1V Ordering Provider: Zoe Estrella D.O. PROCEDURE:? XR RIBS LT MIN 3V W CXR1V ? INDICATIONS:? left chest pain s/p fall ? TECHNIQUE:? 2 views of the LEFT ribs were acquired, along with a single view chest.? ? COMPARISON:? [facility], CT, CT CHEST WO [facility], 06/24/2021, 15:19.? [facility], CT, CT FACIAL BONES WO [facility], 01/08/2022, 9:26.? [facility], CT, CT HEAD/BRAIN WO [facility], 01/08/2022, 9:26. ? FINDINGS:? ? Surgical changes and devices:? None.? ? Bones and chest wall:? A marker is placed upon the area of clinical concern.? Within this region, no displaced rib fracture or other significant rib abnormality can be seen.? No rib fractures are seen elsewhere.? No suspicious bony lesions.? Age-appropriate bony degenerative changes are seen.? Overlying soft tissues appear unremarkable.? ? Lungs and pleura:? No pleural effusions or pneumothorax.? Lungs appear clear.? ? Mediastinum:? Mediastinal contours appear normal.? Heart size is normal.? ? IMPRESSION:? ? No displaced rib fractures are seen. ? No pneumothorax. ? ? ? Dictated by: Wilian Rivas M.D. on 01/08/2022 at 8:34 ? ? Approved by: Wilian Rivas M.D. on 01/08/2022 at 8:36?? ECG Data Attestation: I personally reviewed and interpreted this ECG as follows: Prior ECG tracings: available for review Interpretation: AFib with rapid ventricular response rate of 129 QRS 84 QTC 457. No acute ST elevation appreciated. Some T-wave depression lateral. Patient has prior from 05/19/2021 with no acute changes. MDM Narrative Medical decision making narrative: This is a 86-year-old female comes emergency department with complaint of fall 1-2 weeks ago with persistent pain who presents for evaluation. Patient states she is been taking oxycodone at her facility which is helpful for pain. The pain has been persisting so she came to be evaluated she does have ecchymoses of the left eye she is on Xarelto head, facial bones and cervical spine were obtained on CT which are all negative. Chest x-ray with rib series does not show acute displaced fracture. Patient does not have any changes at this time that would lead me to obtain a CT of the chest. Patient is in AFib which is known, she is on Xarelto was given her home dose of diltiazem as she occasionally pops up to the 120s and then back down to 90 range. Discharge Plan Departure Patient Disposition: Home Clinical Impression: Periorbital ecchymosis of left eye, Contusion of rib on left side, Fall, Atrial fibrillation Instructions: How to Prevent Falls Activity Restrictions/Additional Instructions: Follow-up with your physician as needed. Your x-ray today does not show obvious rib fracture but you can have very small nondisplaced rib fractures or contusion of the ribs that can be painful for several weeks. You can continue taking oxycodone as prescribed by your physician for pain management. Make sure you are taking something with this so that you do not become constipated such as a stool softener. Please return for new or worsening symptoms, severe headaches, new or worsening chest pain, shortness of breath, new swelling of extremities, lightheadedness or passing out or other new or concerning symptoms. Prescriptions: No Action gabapentin 300 mg Capsule 300 mg PO BID Rx Instructions: take 1 capsule in am and 1 at afternoon metoprolol succinate 50 mg tablet extended release 24 hr 50 mg PO DAILY aspirin 81 mg Tablet,Delayed Release (Dr/Ec) 81 mg PO DAILY gabapentin 600 mg Tablet 600 mg PO BEDTIME diltiazem HCl 180 mg capsule,extended release 24hr 180 mg PO DAILY nystatin 100,000 unit/gram Powder 1 applic TOPICAL BID Rx Instructions: right groin rash until resolve escitalopram oxalate 20 mg tablet 20 mg PO DAILY Label Comments: TK 1 T PO QD potassium chloride 10 mEq Tablet Extended Release 10 meq PO QPM omeprazole 20 mg capsule,delayed release(DR/EC) 20 mg PO DAILY Label Comments: TK 1 C PO QD polyethylene glycol 3350 17 gram Powder In Packet 17 gm PO DAILY Qty: 1 0RF furosemide 20 mg Tablet 20 mg PO DAILY Amitiza 24 mcg Capsule 24 mcg PO DAILY doxepin 100 mg Capsule 100 mg PO BEDTIME oxycodone 5 mg tablet 5 - 10 mg PO Q4H PRN (Reason: pain) Qty: 50 0RF Rx Instructions: exempt postop rosuvastatin 40 mg Tablet 40 mg PO DAILY cholecalciferol (vitamin D3) [Vitamin D3] 2,000 unit Tablet 2,000 unit PO DAILY Xarelto 20 mg Tablet 20 mg PO DAILY acetaminophen 325 mg tablet 325 mg PO Q6H PRN (Reason: Pain) calcium carbonate [Oyster Shell Calcium 500] 500 mg calcium (1,250 mg) Tablet 500 mg PO DAILY Rx Instructions: with meal ciprofloxacin HCl 500 mg tablet 500 mg PO Q12H Qty: 14 0RF Referrals: Pooja Root MD [Primary Care Provider] - Visit Report Forms: Patient Portal/API
--- NOTE | 2022-01-08 09:06 | DI.CT.S_ITS ---
PROCEDURE: CT FACIAL BONES WO CON INDICATIONS: s/p fall 2 weeks, facial bruising, on xarelto TECHNIQUE: Noncontrast 2.5 mm thick axial images acquired from the mandible through the frontal sinuses, with coronal and sagittal reformatting. For radiation dose reduction, the following was used: automated exposure control, adjustment of mA and/or kV according to patient size. COMPARISON: [facility], CT, CT CERVICAL SPINE WO CON, 01/08/2022, 9:26. [facility], CT, CT HEAD/BRAIN WO CON, 01/08/2022, 9:26. FINDINGS: Image quality: Excellent. Bones and teeth: Orbital goodwin are intact. Sinus goodwin show no fracture or deformity. Nasal bones and septum are intact. Visualized portions of the mandible demonstrate no fractures or subluxation. Zygomatic arches are intact. Pterygoid plates are intact. Visualized portions of the skull base and auditory canals are intact. Degenerative changes are seen, including involving the visualized cervical spine. Sinuses: Paranasal sinuses are aerated, without fluid levels, mucosal thickening, or mucoceles. Mastoid air cells are aerated. Soft tissues: No edema, masses, or fluid collections. No enlarged lymph nodes. No soft tissue lacerations or debris. Vascular: Visualized vascular structures appear normal in the absence of contrast. Bony vascular foramina and canals are intact. IMPRESSION: Negative for displaced fracture. Dictated by: Wilian Rivas M.D. on 01/08/2022 at 8:41 Approved by: Wilian Rivas M.D. on 01/08/2022 at 8:42
--- NOTE | 2022-01-08 09:06 | DI.CT.S_ITS ---
PROCEDURE: CT HEAD/BRAIN WO CON INDICATIONS: s/p fall 2 weeks, facial bruising, on xarelto TECHNIQUE: Noncontrast 4.5 mm thick angled axial sections acquired from the foramen magnum to the vertex, with coronal and sagittal reformats. For radiation dose reduction, the following was used: automated exposure control, adjustment of mA and/or kV according to patient size. COMPARISON: [facility], CT, CT HEAD/BRAIN WO CON, 06/25/2020, 23:57. [facility], CT, CT HEAD/BRAIN WO CON, 05/28/2021, 12:01. [facility], CR, XR RIBS LT MIN 3V W CXR1V, 01/08/2022, 8:59. [facility], CT, CT CERVICAL SPINE WO CON, 01/08/2022, 9:26. [facility], CT, CT FACIAL BONES WO CON, 01/08/2022, 9:26. FINDINGS: Image quality: Excellent. CSF spaces: Basal cisterns are patent. No extra-axial fluid collections. The ventricles are symmetric in size and shape. Brain: No intracranial bleeds or masses. There is cerebral volume loss for age, with resultant ventricular and sulcal prominence. There are periventricular and deep white matter chronic small vessel ischemic changes. There is intracranial internal carotid artery atherosclerosis. Skull and face: Calvarium and visualized facial bones appear intact, without suspicious lesions. Sinuses: Visualized sinuses and mastoids are clear. IMPRESSION: No acute intracranial hemorrhage is seen. No acute intracranial process is seen. Note is made of age-appropriate brain parenchymal volume loss and chronic small vessel ischemic changes. Dictated by: Wilian Rivas M.D. on 01/08/2022 at 8:36 Approved by: Wilian Rivas M.D. on 01/08/2022 at 8:39
[2022-01-08 09:59] VITALS: BP 112/65; PULSE 122; RESP 19; O2SAT 97
[2022-01-08] MEDS: dilTIAZem CD 180 MG CAP PO (10:20)
== END 2022-01-08 10:36 | disposition home or self-care (01) ==
PROVIDERS: Emergency Provider Emergency Medicine; Family Provider Nurse Practitioner Family; PCP Internal Medicine
DX: S00.12XA Contusion of left eyelid and periocular area, initial encounter (principal); S20.212A Contusion of left front wall of thorax, initial encounter; R07.9 Chest pain, unspecified; I48.91 Unspecified atrial fibrillation; W18.30XA Fall on same level, unspecified, initial encounter
CPT/HCPCS: 70450; 70486; 71101; 72125; 93005; 93010; 99284

== ENCOUNTER → 2022-01-20 13:52 | Outpatient (CLI) | payer MEDICARE, SELFPAY ==
--- NOTE | 2022-01-20 13:53 | DI.CT.S_ITS ---
PROCEDURE: CT HEAD/BRAIN WO CON INDICATIONS: Dizziness and giddiness TECHNIQUE: Noncontrast 4.5 mm thick angled axial sections acquired from the foramen magnum to the vertex, with coronal and sagittal reformats. For radiation dose reduction, the following was used: automated exposure control, adjustment of mA and/or kV according to patient size. COMPARISON: [facility], CT, CT HEAD/BRAIN WO CON, 01/08/2022, 9:26. FINDINGS: Image quality: Excellent. CSF spaces: Basal cisterns are patent. No extra-axial fluid collections. The ventricles are symmetric in size and shape. Brain: No intracranial bleeds or masses. There is cerebral volume loss for age, with resultant ventricular and sulcal prominence. There are periventricular and deep white matter chronic small vessel ischemic changes. There is intracranial internal carotid artery atherosclerosis. Skull and face: Calvarium and visualized facial bones appear intact, without suspicious lesions. Sinuses: Visualized sinuses and mastoids are clear. IMPRESSION: No acute finding. Dictated by: Landon Triplett M.D. on 01/20/2022 at 15:23 Approved by: Landon Triplett M.D. on 01/20/2022 at 15:25
== END ==
PROVIDERS: Family Provider Nurse Practitioner Family; PCP Internal Medicine; Referring Provider Registered Nurse; Visit Provider Registered Nurse
DX: R42 Dizziness and giddiness (principal); S09.90XD Unspecified injury of head, subsequent encounter; H53.9 Unspecified visual disturbance; R51.9 Headache, unspecified
CPT/HCPCS: 70450

== ENCOUNTER → 2022-02-09 06:15 | Outpatient (ROUT) | payer MEDICARE, SELFPAY ==
[2022-02-09 06:50] LABS: Add Manual Diff / Slide Review NO; Basophils Absolute Auto 0 /uL (0-100); Basophils Percent Auto 0.7 % (0-2); Eosinophils Absolute Auto 200 /uL (0-450); Eosinophils Percent Auto 3.4 % (2-4); Hematocrit 35.1 % (36-46); Hemoglobin 11.6 g/dL (12.0-16.0); Lymphocytes Absolute Auto 1300 /uL (1100-4500); Mean Corpuscular HGB Conc 33.1 % (30-36); Mean Corpuscular Hemoglobin 30.2 PG (26-34); Mean Corpuscular Volume 91.3 fL (80-100); Monocytes Absolute Auto 500 /uL (0-900); Monocytes Percent Auto 8.3 % (3-14); Neutrophils Absolute Auto 4400 /uL (1500-7000); Neutrophils Percent Auto 67.6 % (50-75); Platelet Count 223 X10^3/uL (150-400); Red Blood Cell Count 3.85 X10^6/uL (4.0-5.2); Red Cell Distribution Width 13.6 % (11.6-14.8); White Blood Cell Count 6.5 X10^3/uL (4.5-11.0)
[2022-02-09 07:02] LABS: Alanine Aminotransferase 13 IU/L (<35); Albumin 3.8 g/dL (3.5-5.0); Albumin Globulin Ratio 1.2 (1.0-2.8); Alkaline Phosphatase 69 U/L (38-126); Aspartate Aminotransferase 16 IU/L (14-36); BUN Creatinine Ratio 12.9 (6-22); Bilirubin Total 0.5 mg/dL (0.2-1.3); Blood Urea Nitrogen 11 mg/dL (7-17); Calcium 9.3 mg/dL (8.4-10.2); Carbon Dioxide 27 mmol/L (22-32); Chloride 102 mmol/L (98-107); Estimated Glomerular Filt Rate > 60 mL/min (>60); Globulin 3.2 g/dL (1.7-4.1); Glucose 107 mg/dL (80-110); HEMOLYSIS < 15 (0-50); Potassium 3.7 mmol/L (3.4-5.1); Sodium 137 mmol/L (137-145)
[2022-02-09 07:47] LABS: Thyroid Stimulating Hormone 1.35 uIU/mL (0.47-4.68)
[2022-02-09 07:50] LABS: Vitamin B12 766 pg/mL (239-931)
== END ==
PROVIDERS: Family Provider Nurse Practitioner Family; PCP Internal Medicine; Visit Provider Nurse Practitioner Family
DX: R41.0 Disorientation, unspecified (principal); R53.1 Weakness
CPT/HCPCS: 36415; 80053; 82607; 84443; 85025

== ENCOUNTER → 2022-02-10 13:42 | Outpatient (ROUT) | payer MEDICARE, SELFPAY ==
[2022-02-10 13:56] LABS: Appearance Urine UA CLEAR; Bilirubin Urine UA NEGATIVE (NEGATIVE); Color Urine UA YELLOW; Glucose Urine UA NEGATIVE (Negative); Ketones Urine UA NEGATIVE (NEGATIVE); Leukocyte Esterase Urine UA 1+ (NEGATIVE); Nitrite Urine UA NEGATIVE (Negative); Occult Blood Urine UA TRACE-LYSED (Negative); Protein Urine UA NEGATIVE (Negative); Specific Gravity Urine UA <=1.005 (1.000-1.035); Urobilinogen Urine UA 0.2 E.U./dL (0.2)
[2022-02-10 14:06] LABS: Bacteria Urine None Seen; Culture Indicated Urine Specimen Cultured; RBC Urine None Seen (0-5/HPF); Squamous Epithelial Cell Urine 1-5 /HPF (0-5/HPF); WBC Urine 1-5/HPF (0-5/HPF)
== END ==
PROVIDERS: Family Provider Nurse Practitioner Family; PCP Internal Medicine; Visit Provider Nurse Practitioner Family
DX: R39.15 Urgency of urination (principal); R53.1 Weakness; R35.0 Frequency of micturition; R41.0 Disorientation, unspecified
CPT/HCPCS: 81001; 87086

== ENCOUNTER 2022-02-10 16:30 | Outpatient (RCR) | payer MEDICARE, SELFPAY ==
--- NOTE | 2022-02-03 14:14 | ST.OPIE ---
Visit Care Team Role Provider Type Pooja Root MD Primary Care Provider Physician Specialty: Medical Address: [facility] [address], [place], [address] Email: VINH Segura Family Provider Non-Staff Referring Provider Specialty: Medical Address: [facility] , [place], [address] Email: VINH Eduardo Attending Provider Non-Staff Specialty: Internal Medicine Address: [address] [place] [address], [place], [address] Email: Speech-Language Pathology Initial Evaluation CHILD AND ADOLESCENT THERAPIST Clinical Swallow Evaluation Start: 02/03/22 13:59 Freq: Status: Active Protocol: Document 02/03/22 13:59 ZS (Rec: 02/03/22 14:13 ZS [id number]) Clinical Swallow Evaluation Session Time Visit Start Time 13:30 Visit Stop Time 14:00 Total Visit Minutes 30 Visit Information Visit Number Initial Evaluation Plan of Care Dates 02/03/2022 - 06/24/2022 Insurance Information AARP Medicare Referral Referring Provider Dr. Copeland Reason for Referral Difficulty swallowing, especially pills Setting Assessment Location Outpatient Care Visit Type Note Type Initial evaluation Next Note Type Next Note Type Treatment Note Patient Information Identification Type Name History Tali is an 86-year old female with a history of AFib, acute confusion and possible dementia, acute encephalopathy , GERD, and a stroke 15+ years ago. She was referred for a modified barium swallow study due to trouble swallowing, reporting food gets stuck in her throat and chest area and is painful when she tries to swallow. Pt stated this problem is across all food textures and has no visible pattern. She added that she avoids tough foods (e.g., tough meats). Pt reported she has lumps in her throat that have been medically examined. She added the lumps have improved over the past 6-8 months and the swallowing difficulties arose over the past 3-4 months. Results of the 12/23/21 MBS: The pt presents with swallowing WFL. Minimal to mild base of tongue weakness observed, which impacts pt's ability to hold bolus in tongue prior to swallowing and resulted in pooling of liquid in valleculae prior to initiating swallow. Delayed initiation of pharyngeal swallow observed with head of the bolus in the pyriforms. Hyoid elevation and excursion were moderately impaired, but did not appear to impact laryngeal vestibular closure. Pt exhibited residue in valleculae, pyriforms, and base of tongue, which she cleared with a spontaneous second swallow. Function appears WFL, though pt may benefit from speech therapy to increase base of tongue strength if increased coughing is observed during meals. Subjective Observations Tali arrived on time and used her feet to walk her wheelchair back to the therapy room. Pt presented with discoloration on left side of face, covering left eye and roman catholic down below cheekbone. Pt reported she fell onto concrete while in her wheelchair. She experienced difficulty with several things (e.g., difficulty swallowing, frequent nosebleeds, etc.) following the fall, but stated this has improved significantly at this time. Pt reported increased difficulty taking pills since MBS. Reported by Patient Other Symptoms Difficulty swallowing pills Current Diet Regular,Thin liquids Baseline Feeding Method Independent in self-feeding Objective Assessment Mental Status Alert,Responsive,Cooperative Comment Did not complete OME at this time as MBS was completed on and indicated base of tongue weakness. Food and Liquid Trials Results No PO trials completed at this time. MBS from 12/23/21 indicated base of tongue weakness and reduced hyolaryngeal elevation and excursion. Findings Comment Provided pt education regarding results of MBS, structure and function of typical swallow, and purpose of base of tongue exercises. Pt expressed understanding and was observed to take notes on concepts. Discussed, demonstrated, and practiced base of tongue exercises. Pt expressed and demonstrated understanding of each exercise . Answered pt questions and discussed POC. Pt expressed understanding and agreement with POC. Impact on Safety and Functioning Risk for aspiration Recommendations Swallowing Treatment Yes Frequency 1x per week Duration 45 minutes Recommended Solids Regular Recommended Liquids Thin Education Patient/Caregiver Education Described results of evaluation,Patient expressed understanding of evaluation, Patient expressed agreement with goals & treatment plans, Patient expressed understanding of safety precautions,Patient expressed understanding of feeding recommendations,Patient requires further education/ training Goals Short-term Goals 1. The pt will perform exercises to increase strength , coordination, and ROM of swallow musculature independently to reduce risk of aspiration and increase comfort with oral intake. Long-term Goals The pt will safely tolerate least restrictive diet to meet her nutrition and hydration needs.
--- NOTE | 2022-02-03 14:15 | ST.OPPOC ---
Physical, Occupational & Speech Therapy At [facility] Visit Care Team Role Provider Type Pooja Root MD Primary Care Provider Physician Address: [address], [place], [address] VINH Segura Family Provider Non-Staff Referring Provider Address: [address], [place], [address] VINH Eduardo Attending Provider Non-Staff Address: [address] [place] [address], [facility], [place], [address] Speech Pathology Plan of Care Plan of Care Dates 02/03/2022 - 06/24/[address] Copeland Patient History Tali is an 86-year old female with a history of AFib, acute confusion and possible dementia, acute encephalopathy, GERD, and a stroke 15+ years ago. She was referred for a modified barium swallow study due to trouble swallowing, reporting food gets stuck in her throat and chest area and is painful when she tries to swallow. Pt stated this problem is across all food textures and has no visible pattern. She added that she avoids tough foods (e.g., tough meats). Pt reported she has lumps in her throat that have been medically examined. She added the lumps have improved over the past 6-8 months and the swallowing difficulties arose over the past 3-4 months. Results of the 12/23/21 MBS: The pt presents with swallowing WFL. Minimal to mild base of tongue weakness observed, which impacts pt's ability to hold bolus in tongue prior to swallowing and resulted in pooling of liquid in valleculae prior to initiating swallow. Delayed initiation of pharyngeal swallow observed with head of the bolus in the pyriforms. Hyoid elevation and excursion were moderately impaired , but did not appear to impact laryngeal vestibular closure. Pt exhibited residue in valleculae, pyriforms, and base of tongue, which she cleared with a spontaneous second swallow. Function appears WFL, though pt may benefit from speech therapy to increase base of tongue strength if increased coughing is observed during meals. Short-term Goals 1. The pt will perform exercises to increase strength, coordination, and ROM of swallow musculature independently to reduce risk of aspiration and increase comfort with oral intake . Long-term Goals The pt will safely tolerate least restrictive diet to meet her nutrition and hydration needs. Comment: Electronically Signed by: JOSIE Beard 02/03/22 3480 If you are in agreement with this Plan of Care, please return a signed and dated copy. I have reviewed this Plan of Care and certify that the skilled therapy services above are required to meet the patient?s needs. Physician Signature Date Printed Name and Credentials Clinical Instructor Signature Printed Name and Credentials
--- NOTE | 2022-02-10 17:30 | ST.OPTN ---
Visit Care Team Role Provider Type Pooja Root MD Primary Care Provider Physician Address: [address], [place], [address] VINH Segura Family Provider Non-Staff Referring Provider Address: [address] , [place], [address] VINH Eduardo Attending Provider Non-Staff Address: [address] [place] [address], [place], [address] COOK PRESSURE Treatment Note COOK PRESSURE Treatment Note Start: 02/11/22 09:23 Freq: Status: Active Protocol: Document 02/10/22 17:30 ZS (Rec: 02/11/22 09:34 ZS [id number]) Speech Pathology Treatment Note Session Time Visit Start Time 16:30 Visit Stop Time 17:30 Total Visit Minutes 60 Visit Information Visit Number 1 Plan of Care Dates 02/03/2022 - 06/24/2022 Insurance Information AARP Medicare Setting Treatment Setting Outpatient Care Visit Type Note Type Treatment Note Next Note Type Next Note Type Treatment Note General Information Patient History Tali is an 86-year old female with a history of AFib, acute confusion and possible dementia, acute encephalopathy , GERD, and a stroke 15+ years ago. She was referred for a modified barium swallow study due to trouble swallowing, reporting food gets stuck in her throat and chest area and is painful when she tries to swallow. Pt stated this problem is across all food textures and has no visible pattern. She added that she avoids tough foods (e.g., tough meats). Pt reported she has lumps in her throat that have been medically examined. She added the lumps have improved over the past 6-8 months and the swallowing difficulties arose over the past 3-4 months. Results of the 12/23/21 MBS: The pt presents with swallowing WFL. Minimal to mild base of tongue weakness observed, which impacts pt's ability to hold bolus in tongue prior to swallowing and resulted in pooling of liquid in valleculae prior to initiating swallow. Delayed initiation of pharyngeal swallow observed with head of the bolus in the pyriforms. Hyoid elevation and excursion were moderately impaired, but did not appear to impact laryngeal vestibular closure. Pt exhibited residue in valleculae, pyriforms, and base of tongue, which she cleared with a spontaneous second swallow. Function appears WFL, though pt may benefit from speech therapy to increase base of tongue strength if increased coughing is observed during meals. Subjective Identification Type Name Identification Reconciled With Medical Record Observations/Patient Presentation Tali arrived on time and agreed to participate in all session activities. She reported a choking episode with medications and stated medications are now crushed in a carrier and has had no further choking episodes. Pt reported HEP is going well and she has been doing exercises with her friends at [facility]. Pt shared there has been increased stress in personal life due to friends leaving [facility] (to hospital and long- term memory care unit) and family dynamics. Chief Complaint(s) Swallowing Objective Short Term Goals 1. The pt will perform exercises to increase strength , coordination, and ROM of swallow musculature independently to reduce risk of aspiration and increase comfort with oral intake. Tanker Service Attendant Goals The pt will safely tolerate least restrictive diet to meet her nutrition and hydration needs. Treatment Activities Discussed and practiced HEP. Provided feedback on making exercises more/less difficult. Pt shared life stressors. Discussed POC moving forward. Assessment Patient Response to Treatment Excellent Rehab Potential Excellent Impairments Identified Swallow Progress Towards Goals Excellent Progress Assessment of Overall Progress Improving Assessment of Improvement Pt reported increased success with HEP and stated she has no questions. She implemented feedback regarding difficulty level of exercises. Tali is currently experiencing several life stressors that are occupying her attention, including difficult conversations regarding money and her will with family as well as friends at [facility] going to the hospital or moving to long-term care facilities. Discussed strategies to manage stress at home and Tali expressed understanding and interest. Discussed POC moving forward given Tali's growing independence in HEP and transportation difficulties. Recommend transition to EOW appointments through the end of March. Tali expressed understanding and agreement with POC. Reviewed with Patient Goals,Progress Being Made,Home Exercise Program Patient/Caregiver Understanding Excellent Plan Amount of Therapy Recommended 1-2 Months Comment EOW Length of Session 45 Minutes Therapeutic Contents Home Exercise Program,Oral Motor Training,Swallowing/ Feeding Provided Patient/Caregiver Instruction Home Exercise Program,Plan of Care,Questions/Concerns Therapy Recommendations Continue with Current Program
--- NOTE | 2022-03-04 14:53 | ST.OPDS ---
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 She was referred for a modified barium swallow study due to trouble swallowing, reporting food gets stuck in her throat and chest area and is painful when she tries to swallow. Pt stated this problem is across all food textures and has no visible pattern. She added that she avoids tough foods (e.g., tough meats). Pt reported she has lumps in her throat that have been medically examined. She added the lumps have improved over the past 6-8 months and the swallowing difficulties arose over the past 3-4 months. Results of the 12/23/21 MBS: The pt presents with swallowing WFL. Minimal to mild base of tongue weakness observed, which impacts pt's ability to hold bolus in tongue prior to swallowing and resulted in pooling of liquid in valleculae prior to initiating swallow. Delayed initiation of pharyngeal swallow observed with head of the bolus in the pyriforms. Hyoid elevation and excursion were moderately impaired, but did not appear to impact laryngeal vestibular closure. Pt exhibited residue in valleculae, pyriforms, and base of tongue, which she cleared with a spontaneous second swallow. Function appears WFL, though pt may benefit from speech therapy to increase base of tongue strength if increased coughing is observed during meals. Subjective Identification Type Name Identification Reconciled With Medical Record Observations/Patient Presentation Tali called to request discharge from speech therapy services. Chief Complaint(s) Swallowing Objective Short Term Goals 1. The pt will perform exercises to increase strength , coordination, and ROM of swallow musculature independently to reduce risk of aspiration and increase comfort with oral intake. 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 Assessment Patient Response to Treatment Excellent Rehab Potential Excellent Impairments Identified Swallow Progress Towards Goals Excellent Progress Assessment of Overall Progress Improving Assessment of Improvement Tali called to request discharge from speech therapy. She is independent with her HEP and will continue these at home on her own. Tali met her goal to independently perform exercises to increase strength , ROM, and coordination of muscles involved in swallowing and will continue these as HEP for continued improvement in swallow safety and comfort with PO intake. Discharging from speech therapy at this time as pt has met goals and is ready for discharge. Reviewed with Patient Goals,Progress Being Made,Home Exercise Program Patient/Caregiver Understanding Excellent Plan Amount of Therapy Recommended 1-2 Months Comment EOW Length of Session 45 Minutes Therapeutic Contents Home Exercise Program,Oral Motor Training,Swallowing/ Feeding Provided Patient/Caregiver Instruction Home Exercise Program,Plan of Care,Questions/Concerns Therapy Recommendations Discharge to Home Exercise Program,Discharge from Speech Therapy Reason for Discharge Pt request, pt met all goals
== END 2022-03-04 14:59 | disposition home or self-care (01) ==
LOC: SP 16:30
PROVIDERS: Family Provider Nurse Practitioner Family; PCP Internal Medicine; Referring Provider Nurse Practitioner Family; Visit Provider Nurse Practitioner Gerontology
DX: R13.10 Dysphagia, unspecified (principal)
CPT/HCPCS: 92507; 92610

== ENCOUNTER → 2022-02-12 08:37 | Outpatient (CLI) | payer MEDICARE, SELFPAY ==
--- NOTE | 2022-02-12 08:39 | DI.MRI.S_ITS ---
PROCEDURE: MR HEAD/BRAIN WO CON INDICATIONS: Headache with orthostatic component, not elsewhere TECHNIQUE: Noncontrast axial T1 spin echo, axial T2 fast spin echo, sagittal and axial FLAIR, coronal T2 fast spin echo, axial gradient echo, axial diffusion and ADC through the brain. COMPARISON: None. FINDINGS: Image quality: Excellent. CSF Spaces: Basal cisterns are patent. No extra-axial fluid collections. Ventricles are normal in size and shape. Brain: No intracranial masses or hemorrhage. Wyman/white matter interface is normal. Brainstem appears normal. Diffusion-weighted images within normal limits without evidence of acute infarct. Normal intravascular flow voids are present. Moderate atrophy and white matter chronic ischemic change. Old lacunar white matter infarcts noted in the left rodriges radiata. Old lateral right parietal cortical infarct Skull and face: Calvarium has normal marrow signal. Orbits appear normal. Sinuses: Sinuses and mastoids are clear. IMPRESSION: Atrophy and chronic ischemic change without acute infarct, hemorrhage or mass effect. 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 Approved by: Dejuan Holland M.D. on 02/12/2022 at 10:03
== END ==
PROVIDERS: Family Provider Nurse Practitioner Family; PCP Internal Medicine; Referring Provider Nurse Practitioner Family; Visit Provider Nurse Practitioner Family
DX: R51.0 Headache with orthostatic component, not elsewhere classified (principal); Z86.73 Personal history of transient ischemic attack (TIA), and cerebral infarction without residual deficits; Z86.61 Personal history of infections of the central nervous system
CPT/HCPCS: 70551

== ENCOUNTER → 2022-03-09 06:13 | Outpatient (ROUT) | payer MEDICARE, SELFPAY ==
[2022-03-09 06:55] LABS: Add Manual Diff / Slide Review NO; Basophils Absolute Auto 100 /uL (0-100); Basophils Percent Auto 0.8 % (0-2); Eosinophils Absolute Auto 200 /uL (0-450); Hematocrit 36.1 % (36-46); Hemoglobin 12.3 g/dL (12.0-16.0); Lymphocytes Absolute Auto 1600 /uL (1100-4500); Lymphocytes Percent Auto 25.3 % (25-40); Mean Corpuscular Hemoglobin 30.6 PG (26-34); Mean Corpuscular Volume 89.9 fL (80-100); Monocytes Absolute Auto 500 /uL (0-900); Monocytes Percent Auto 8.3 % (3-14); Neutrophils Absolute Auto 3800 /uL (1500-7000); Neutrophils Percent Auto 61.6 % (50-75); Platelet Count 228 X10^3/uL (150-400); Red Blood Cell Count 4.01 X10^6/uL (4.0-5.2); Red Cell Distribution Width 13.2 % (11.6-14.8); White Blood Cell Count 6.2 X10^3/uL (4.5-11.0)
[2022-03-09 07:28] LABS: Alanine Aminotransferase 13 IU/L (<35); Albumin 3.6 g/dL (3.5-5.0); Albumin Globulin Ratio 1.2 (1.0-2.8); Alkaline Phosphatase 65 U/L (38-126); Aspartate Aminotransferase 21 IU/L (14-36); BUN Creatinine Ratio 11.1 (6-22); Bilirubin Total 0.4 mg/dL (0.2-1.3); Blood Urea Nitrogen 11 mg/dL (7-17); Calcium 9.3 mg/dL (8.4-10.2); Carbon Dioxide 31 mmol/L (22-32); Chloride 102 mmol/L (98-107); Estimated Glomerular Filt Rate 56 mL/min (>60); Globulin 3.1 g/dL (1.7-4.1); Glucose 95 mg/dL (80-110); HEMOLYSIS < 15 (0-50); Potassium 4.2 mmol/L (3.4-5.1); Sodium 139 mmol/L (137-145); Total Protein 6.7 g/dL (6.3-8.2)
[2022-03-09 07:57] LABS: Thyroid Stimulating Hormone 1.61 uIU/mL (0.47-4.68)
[2022-03-09 08:17] LABS: Vitamin B12 943 pg/mL (239-931)
== END ==
PROVIDERS: Family Provider Nurse Practitioner Family; PCP Internal Medicine; Visit Provider Nurse Practitioner Family
DX: R53.83 Other fatigue (principal)
CPT/HCPCS: 36415; 80053; 82607; 84443; 85025

== ENCOUNTER 2022-04-19 13:42 | Observation (INO) | payer OTHER, SELFPAY ==
[2022-04-19] VITALS (11 sets, daily range): BP systolic 145–167; BP diastolic 68–127; PULSE 66–121; RESP 14–22; TEMP 36.1–36.4; O2SAT 91–99; BMI 30.4
--- NOTE | 2022-04-19 13:50 | DI.RAD.S_ITS ---
PROCEDURE: XR CHEST 1V INDICATIONS: chest pain TECHNIQUE: One view of the chest was acquired. COMPARISON: [facility], CR, XR CHEST 1V, 10/07/2019, 16:08. FINDINGS: Surgical changes and devices: None. Lungs and pleura: Lungs are clear. No pleural effusions or pneumothorax. Mediastinum: Mediastinal contours appear normal. Heart size is normal. Bones and chest wall: No suspicious bony lesions. Overlying soft tissues appear unremarkable. IMPRESSION: No acute cardiopulmonary disease. Dictated by: Shanae Burk M.D. on 04/19/2022 at 13:51 Approved by: Shanae Burk M.D. on 04/19/2022 at 13:51
[2022-04-19 14:34] LABS: Add Manual Diff / Slide Review NO; Basophils Absolute Auto 0 /uL (0-100); Basophils Percent Auto 0.7 % (0-2); Eosinophils Absolute Auto 100 /uL (0-450); Eosinophils Percent Auto 1.4 % (2-4); Hematocrit 37.9 % (36-46); Hemoglobin 12.7 g/dL (12.0-16.0); Lymphocytes Absolute Auto 1400 /uL (1100-4500); Lymphocytes Percent Auto 19.6 % (25-40); Mean Corpuscular HGB Conc 33.7 % (30-36); Mean Corpuscular Hemoglobin 30.5 PG (26-34); Mean Corpuscular Volume 90.7 fL (80-100); Monocytes Absolute Auto 400 /uL (0-900); Neutrophils Absolute Auto 5300 /uL (1500-7000); Neutrophils Percent Auto 72.3 % (50-75); Platelet Count 239 X10^3/uL (150-400); Red Blood Cell Count 4.17 X10^6/uL (4.0-5.2); Red Cell Distribution Width 13.9 % (11.6-14.8); White Blood Cell Count 7.3 X10^3/uL (4.5-11.0)
[2022-04-19 14:43] LABS: INR 1.9 (0.9-1.3); Prothrombin Time 21.4 SECONDS (10.1-12.7)
[2022-04-19 14:45] LABS: PTT Partial Thromboplastin Tim 46 SECONDS (26-36)
[2022-04-19 14:46] LABS: Alanine Aminotransferase 15 IU/L (<35); Albumin 4.2 g/dL (3.5-5.0); Albumin Globulin Ratio 1.3 (1.0-2.8); Alkaline Phosphatase 72 U/L (38-126); Aspartate Aminotransferase 22 IU/L (14-36); BUN Creatinine Ratio 11.6 (6-22); Bilirubin Total 0.6 mg/dL (0.2-1.3); Blood Urea Nitrogen 11 mg/dL (7-17); Calcium 9.8 mg/dL (8.4-10.2); Carbon Dioxide 30 mmol/L (22-32); Chloride 101 mmol/L (98-107); Creatine Kinase 47 U/L (30-135); Estimated Glomerular Filt Rate 59 mL/min (>60); Globulin 3.3 g/dL (1.7-4.1); Glucose 148 mg/dL (80-110); HEMOLYSIS < 15 (0-50); Lipase 34 U/L (23-300); Sodium 137 mmol/L (137-145); Total Protein 7.5 g/dL (6.3-8.2)
[2022-04-19 14:49] LABS: COVID19 -Nasal RAPID Negative (Negative)
[2022-04-19 14:57] LABS: Troponin I 0.019 ng/mL (0.01-0.034)
--- NOTE | 2022-04-19 14:57 | ED_ITS ---
HPI - Arrhythmia/Palpitations General Chief Complaint: Arrhythmia/Palpitations Stated Complaint: afib, bp is high Time Seen by Provider: 04/19/22 14:01 Mode of arrival: Wheelchair History of Present Illness HPI narrative: Patient brought here from [facility] across the street for complains of chest pain palpitations that has resolved. Patient has history of atrial fibrillation and is on Xarelto. Patient has had off and on chest discomfort for the past 1 week. She did not mention this to ophthalmology services this morning when she was going to get her cataract procedure. She was on the monitor and she did have elevated heart rate and chest discomfort. She has chronic atrial fibrillation. Patient is asymptomatic at this time. Heart rate average 83-93. No chest pain no palpitations. Patient does not have existing mascara molder. Does have a family doctor. Patient denies any recent illness. She is DNR with comfort measures, however she is agreeable for admission and stress test and echocardiogram Related Data Home Medications Medication Instructions Recorded Confirmed furosemide 20 mg tablet 80 mg PO DAILY 12/07/17 04/19/22 aspirin 81 mg tablet,delayed 81 mg PO DAILY 12/26/17 04/19/22 release escitalopram oxalate 20 mg tablet 20 mg PO DAILY 10/10/18 04/19/22 nystatin 100,000 unit/gram topical 1 applic topical BID 10/10/18 04/19/22 powder omeprazole 20 mg capsule,delayed 20 mg PO DAILY 10/10/18 04/19/22 release potassium chloride 10 mEq 20 meq PO BID 10/10/18 04/19/22 tablet,extended release cholecalciferol (vitamin D3) 50 2,000 unit PO DAILY 01/09/19 04/19/22 mcg (2,000 unit) tablet (Vitamin D3) rivaroxaban 20 mg tablet (Xarelto) 20 mg PO DAILY 01/09/19 04/19/22 rosuvastatin 40 mg tablet 20 mg PO DAILY 01/09/19 04/19/22 acetaminophen 500 mg tablet 1,000 mg PO TID 04/19/22 04/19/22 albuterol sulfate 90 mcg/actuation 2 puff inhalation TID 04/19/22 04/19/22 aerosol inhaler calcium carbonate 500 mg calcium 500 mg PO BID 04/19/22 04/19/22 (1,250 mg) tablet (Oyster Shell Calcium 500) digoxin 125 mcg (0.125 mg) tablet 125 mcg PO QAM 04/19/22 04/19/22 diltiazem HCl 240 mg 240 mg PO QAM 04/19/22 04/19/22 capsule,extended release 24 hr docusate sodium 100 mg capsule 100 mg PO QPM 04/19/22 04/19/22 ferrous sulfate 325 mg (65 mg 325 mg PO SEEINSTR 04/19/22 04/19/22 iron) tablet (FeroSul) fluticasone propionate 50 50 mcg intranasal QAM 04/19/22 04/19/22 mcg/actuation nasal spray,suspension gabapentin 800 mg tablet 800 mg PO TID 04/19/22 04/19/22 (Neurontin) ondansetron 4 mg disintegrating 4 mg PO Q4H PRN Nausea 04/19/22 04/19/22 tablet Previous Rx's Medication Instructions Recorded polyethylene glycol 3350 17 gram 17 gm PO DAILY #1 pkg 10/13/18 oral powder packet oxycodone 5 mg tablet 5 - 10 mg PO Q4H PRN pain #50 tabs 01/09/19 Allergies Allergy/AdvReac Type Severity Reaction Status Date / Time Sulfa (Sulfonamide Allergy Intermediate Rash Verified 04/19/22 13:45 Antibiotics) Review of Systems Review of Systems Narrative: GENERAL: negative chills, fatigue, malaise, fever, sweats. HEENT: negative sinus pain, ear pain, sore throat RESPIRATORY: negative dyspnea, cough CARDIOVASCULAR: Positive chest pain, palpitations GASTROINTESTINAL: negative nausea, vomiting, abdominal pain : negative dysuria, frequency, hematuria MUSCULOSKELETAL: negative muscle or bony pain SKIN: negative rash, skin lesions NEUROLOGIC: negative weakness, numbness ROS Unobtainable: All systems reviewed & are unremarkable except as noted in HPI and below Patient History Medical History (Updated 04/19/22 @ 15:08 by Miko Hunter MD) Chronic pain Dementia Depression GERD (gastroesophageal reflux disease) Herpes encephalitis History of lumbar puncture (08/29/18) Hyperlipidemia Hypertension Hypoxia (10/10/18) Impaired fasting glucose Pulmonary fibrosis Stroke Surgical History History of ankle surgery (10/11/18) Social History details: two years ago number of children: 2 household members: none lives independently: Yes caregiver/support person: Yes housing: apartment other: Denies alcohol drinking or cigarette smoking. Her son of overdose 1 w Smoking Status: Former smoker alcohol intake: current Smoking Status: Former smoker alcohol intake frequency: holidays/special occasions only Substance Use Type: does not use Exam Narrative Exam Narrative: GENERAL: in no distress, not toxic not dyspneic HEAD: Normocephalic. EYES: Pupils equal round ENT: Mucous membranes moist. NECK: Trachea midline. CARDIOVASCULAR: Irregular irregular. Not tachycardic RESPIRATORY: Clear to auscultation. Breath sounds equal bilaterally. No wheezes, rales, or rhonchi. GASTROINTESTINAL: Abdomen soft, non-tender EXTREMITIES: No gross deformities. BACK: No flank tenderness. NEURO: AOx4. SKIN: Warm and dry PSYCH: Not anxious, is cooperative Initial Vital Signs Initial Vital Signs: Vital Signs Temperature 97.6 F 04/19/22 13:45 Pulse Rate 119 H 04/19/22 13:45 Respiratory Rate 16 04/19/22 13:45 Blood Pressure 152/76 H 04/19/22 13:45 Pulse Oximetry 99 04/19/22 13:45 Oxygen Delivery Method 04/19/22 13:45 Course Orders Ordered: ED Orders 04/19/22 13:50 XR chest 1V Stat EKG-12 Lead Stat 04/19/22 13:52 COVID19 -Nasal RAPID/Pre-Proc Stat 04/19/22 14:25 Complete Blood Count AUTO DIFF Stat Comprehensive Metabolic Panel Stat Lipase Stat Magnesium Stat Partial Thromboplastin Time Stat Prothrombin Time INR Stat Troponin & CK Cardiac Panel Stat Acetaminophen (Acetaminophen 325 Mg Tablet) 650 mg PO Q4H PRN PRN Reason: Fever/Mild Pain (1-3) Last Admin: 04/19/22 15:43 Dose: 650 mg Documented By: RB Acetaminophen (Acetaminophen 325 Mg Tablet) 975 mg PO TID JACQUELINE Albuterol (Albuterol 2.5 Mg/3 Ml Neb (Adult)) 2.5 mg INH RTQ4HR PRN PRN Reason: Shortness Of Breath Albuterol (Albuterol 2.5 Mg/3 Ml Neb (Adult)) 2.5 mg INH TID JACQUELINE Aspirin (Aspirin Ec 81 Mg Tablet) 81 mg PO DAILY JACQUELINE Atorvastatin Calcium (Atorvastatin 20 Mg Tablet) 80 mg PO BEDTIME [facility] Calcium Carbonate (Calcium Carbonate 500 Mg Tab) 500 mg PO BID [facility] Cyanocobalamin (Cyanocobalamin (Vitamin B-12) 500 Mcg Tablet) 1,000 mcg PO DAILY [facility] Digoxin (Digoxin 0.125 Mg Tablet) 0.125 mg PO DAILY@1700 [facility] Diltiazem HCl (Diltiazem Cd 240 Mg Cap) 240 mg PO DAILY [facility] Docusate Sodium (Docusate 100 Mg Capsule) 100 mg PO BEDTIME [facility] Escitalopram Oxalate (Escitalopram 10 Mg Tablet) 20 mg PO DAILY JACQUELINE Ferrous Sulfate (Ferrous Sulfate 325 Mg Tablet) 325 mg PO DAILY [facility] Fluticasone Propionate (Fluticasone 120 [place]/16 Gm [place].Susp) 1 spray NASAL DAILY [facility] Furosemide (Furosemide 40 Mg Tablet) 80 mg PO DAILY [facility] Gabapentin (Gabapentin 400 Mg Capsule) 800 mg PO TID [facility] Sodium Chloride (Normal Saline 0.9%) 1,000 mls @ 84 mls/hr IV CONT JACQUELINE Last Admin: 04/19/22 16:18 Dose: 84 mls/hr Documented By: AKP Lisinopril (Lisinopril 5 Mg Tablet) 2.5 mg PO DAILY [facility] Melatonin (Melatonin 3 Mg Tablet) 3 mg PO BEDTIME [facility] Metoprolol Succinate (Metoprolol Er 50 Mg Tablet) 50 mg PO DAILY [facility] Ondansetron HCl (Ondansetron 4 Mg Odt) 4 mg SL Q4HR PRN PRN Reason: Nausea Oxycodone HCl (Oxycodone Ir 5 Mg Tablet) 5 mg PO Q4HR PRN PRN Reason: Pain, Moderate (4-6) Pantoprazole Sodium (Pantoprazole Dr 20 Mg Tablet) 20 mg PO 0700 [facility] Polyethylene Glycol (Polyethylene Glycol 3350 17 Gm Powd.Pack) 17 gm PO DAILY [facility] Potassium Chloride (Potassium Chloride 20 Meq Tab) 20 meq PO DAILYCC [facility] Rivaroxaban (Rivaroxaban 10 Mg Tablet) 20 mg PO DAILY [facility] Sennosides (Sennosides 8.6 Mg Tablet) 17.2 mg PO BEDTIME [facility] Vitamin D (Cholecalciferol (Vitamin D3) 1,000 Unit Tablet) 1,000 unit PO DAILY JACQUELINE Discontinued Medications Calcium Carbonate (Calcium Carbonate 500 Mg Tab) 500 mg PO DAILY [facility] Doxepin HCl (Doxepin 25 Mg Capsule) 100 mg PO BEDTIME [facility] Escitalopram Oxalate (Escitalopram 10 Mg Tablet) 10 mg PO DAILY [facility] Metoprolol Succinate (Metoprolol Er 50 Mg Tablet) 50 mg PO NOW ONE Stop: 04/19/22 15:46 Last Admin: 04/19/22 16:17 Dose: 50 mg Documented By: WILLA Metoprolol Tartrate (Metoprolol Ir 25 Mg Tablet) 12.5 mg PO BID [facility] Last Admin: 04/19/22 15:42 Dose: 12.5 mg Documented By: RB Potassium Chloride (Potassium Chloride 10 Meq Tab) [facility] Vitamin D (Cholecalciferol (Vitamin D3) 1,000 Unit Tablet) 2,000 unit PO DAILY [facility] Vital Signs Vital signs: Vital Signs - 8 hr 04/19/22 13:45 04/19/22 14:28 04/19/22 14:29 Temperature 97.6 F Pulse Rate 119 H 112 H Respiratory Rate 16 22 Blood Pressure 152/76 H 145/90 H Pulse Oximetry 99 Oxygen Delivery Method Room Air 04/19/22 14:29 04/19/22 14:30 04/19/22 14:30 Temperature Pulse Rate 112 H 104 H Respiratory Rate 14 15 Blood Pressure 155/74 H Pulse Oximetry 91 94 Oxygen Delivery Method 04/19/22 15:08 Temperature Pulse Rate 121 H Respiratory Rate Blood Pressure Pulse Oximetry 97 Oxygen Delivery Method MDM - Arrhythmia/Palpitations Lab Data 04/19/22 14:25 04/19/22 14:25 Labs: Lab Results 04/19/22 04/19/22 04/19/22 Range/Units 13:52 14:25 14:25 WBC 7.3 (4.5-11.0) X10^3/uL RBC 4.17 (4.0-5.2) X10^6/uL Hgb 12.7 (12.0-16.0) g/dL Hct 37.9 (36-46) % MCV 90.7 (80-100) fL MCH 30.5 (26-34) PG MCHC 33.7 (30-36) % RDW 13.9 (11.6-14.8) % Plt Count 239 (150-400) X10^3/uL Neut % (Auto) 72.3 (50-75) % Lymph % (Auto) 19.6 L (25-40) % [place] % (Auto) 6.0 (3-14) % Eos % (Auto) 1.4 L (2-4) % Baso % (Auto) 0.7 (0-2) % Neut # (Auto) 5300 (4926-3063) /uL Lymph # (Auto) 1400 (5672-1748) /uL [place] # (Auto) 400 (0-900) /uL Eos # (Auto) 100 (0-450) /uL Baso # (Auto) 0 (0-100) /uL PT 21.4 H (10.1-12.7) SECONDS INR 1.9 H (0.9-1.3) APTT 46 H (26-36) SECONDS Sodium (137-145) mmol/L Potassium (3.4-5.1) mmol/L Chloride (98-107) mmol/L Carbon Dioxide (22-32) mmol/L BUN (7-17) mg/dL Creatinine (0.52-1.04) mg/dL Estimated GFR (>60) mL/min BUN/Creatinine Ratio (6-22) Glucose (80-110) mg/dL Calcium (8.4-10.2) mg/dL Magnesium (1.6-2.3) mg/dL Total Bilirubin (0.2-1.3) mg/dL AST (14-36) IU/L ALT (<35) IU/L Alkaline Phosphatase (38-126) U/L Total Creatine Kinase (30-135) U/L CK-MB (CK-2) CK-MB (CK-2) Rel Index Troponin I (0.01-0.034) ng/mL Total Protein (6.3-8.2) g/dL Albumin (3.5-5.0) g/dL Globulin (1.7-4.1) g/dL Albumin/Globulin Ratio (1.0-2.8) Lipase (23-300) U/L SARS-CoV-2 (PCR) Negative (Negative) 04/19/22 Range/Units 14:25 WBC (4.5-11.0) X10^3/uL RBC (4.0-5.2) X10^6/uL Hgb (12.0-16.0) g/dL Hct (36-46) % MCV (80-100) fL MCH (26-34) PG MCHC (30-36) % RDW (11.6-14.8) % Plt Count (150-400) X10^3/uL Neut % (Auto) (50-75) % Lymph % (Auto) (25-40) % [place] % (Auto) (3-14) % Eos % (Auto) (2-4) % Baso % (Auto) (0-2) % Neut # (Auto) (9587-1684) /uL Lymph # (Auto) (6315-0102) /uL [place] # (Auto) (0-900) /uL Eos # (Auto) (0-450) /uL Baso # (Auto) (0-100) /uL PT (10.1-12.7) SECONDS INR (0.9-1.3) APTT (26-36) SECONDS Sodium 137 (137-145) mmol/L Potassium 4.0 (3.4-5.1) mmol/L Chloride 101 (98-107) mmol/L Carbon Dioxide 30 (22-32) mmol/L BUN 11 (7-17) mg/dL Creatinine 0.95 (0.52-1.04) mg/dL Estimated GFR 59 L (>60) mL/min BUN/Creatinine Ratio 11.6 (6-22) Glucose 148 H (80-110) mg/dL Calcium 9.8 (8.4-10.2) mg/dL Magnesium 2.0 (1.6-2.3) mg/dL Total Bilirubin 0.6 (0.2-1.3) mg/dL AST 22 (14-36) IU/L ALT 15 (<35) IU/L Alkaline Phosphatase 72 (38-126) U/L Total Creatine Kinase 47 (30-135) U/L CK-MB (CK-2) TNP CK-MB (CK-2) Rel Index TNP Troponin I 0.019 (0.01-0.034) ng/mL Total Protein 7.5 (6.3-8.2) g/dL Albumin 4.2 (3.5-5.0) g/dL Globulin 3.3 (1.7-4.1) g/dL Albumin/Globulin Ratio 1.3 (1.0-2.8) Lipase 34 (23-300) U/L SARS-CoV-2 (PCR) (Negative) Imaging Data Chest x-ray: Radiologist's Impresson: [address] [address] XRay Report Signed Patient: Tali Burton MR#: [id number] : 1935 Acct:[id number] Age/Sex: 86 / F Date of Service: 04/19/22 Loc: ED Accession Number: [id number] ?? Procedure: XR chest 1V Ordering Provider: Miko Hunter MD PROCEDURE:? XR CHEST 1V ? INDICATIONS:? chest pain ? TECHNIQUE:? One view of the chest was acquired.? ? COMPARISON:? [facility], CR, XR CHEST 1V, 10/07/2019, 16:08. ? FINDINGS:? ? Surgical changes and devices:? None.? ? Lungs and pleura:? Lungs are clear.? No pleural effusions or pneumothorax.? ? Mediastinum:? Mediastinal contours appear normal.? Heart size is normal.? ? Bones and chest wall:? No suspicious bony lesions.? Overlying soft tissues appear unremarkable.? ? IMPRESSION:? No acute cardiopulmonary disease.? ? ? Dictated by: Shanae Burk M.D. on 04/19/2022 at 13:51 ? ? Approved by: Shanae Burk M.D. on 04/19/2022 at 13:51 ? ECG Data Interpretation: Atrial fibrillation with RVR. Rate 105 MDM Narrative Medical decision making narrative: Patient brought here from [facility] across the street for complains of chest pain palpitations that has resolved. Patient has history of atrial fibrillation and is on Xarelto. Patient has had off and on chest discomfort for the past 1 week. She did not mention this to ophthalmology services this morning when she was going to get her cataract procedure. She was on the monitor and she did have elevated heart rate and chest discomfort. She has chronic atrial fibrillation. Patient is asymptomatic at this time. Heart rate average 83-93. No chest pain no palpitations. Patient does not have existing mascara molder. Does have a family doctor. Patient denies any recent illness. She is DNR with comfort measures, however she is agreeable for admission and stress test and echocardiogram After exam history, CBC CMP troponin chest x-ray EKG were all ordered. Heart rate has resolved. MDM CC: Chest pain/palpitations Complicating co-morbidities: Atrial fibrillation/TIA Data collected from: Patient Medical records reviewed: Past records do show atrial fibrillation visits but no admission, echocardiogram done October last year. Ejection fraction 35% Differential considered: Includes but not limited to chest pain/stable angina/unstable angina/DC/non-STEMI/AFib with RVR Exam documented above, pertinent findings include: AFib but rate controlled Lab Test results independently reviewed as above. Pertinent findings: Troponins normal. CBC with no leukocytosis., INR 1.9 CBC without renal injury, COVID negative Independently reviewed EKG as above Imaging studies independently reviewed: Chest x-ray no acute process Consultations: 3:00 p.m.. Spoke with hospitalist, Dr. Bhagat, will admit patient. Treatments: None required, RVR has resolved. Patient rate controlled AFib now Re-evaluations: Reviewed results with patient. She does agree for admit. Chest pain-free no palpitations. Discussion: Appropriate for admission for stress test and echocardiogram. Patient does not require cardioversion, rate is controlled now. Less than 100. No rate control medication indicated at this time. Diagnosis: Chest pain/AFib Discharge Plan Departure Patient Disposition: Admitted as Observation Clinical Impression: Chest pain, Atrial fibrillation Admit Date/Time: 04/19/22 15:09 Admit Provider: Tali Bhagat
--- NOTE | 2022-04-19 15:12 | PM.HP.1 ---
History of Present Illness History of Present Illness Date Patient Seen: 04/19/22 Chief complaint: afib, bp is high Narrative: Patient brought here from [facility] across the street for complains of chest pain palpitations that has resolved.? Patient has history of atrial fibrillation and is on Xarelto.? Patient has had off and on chest discomfort for the past 1 week.? She did not mention this to ophthalmology services this morning when she was going to get her cataract procedure.? She was on the monitor and she did have elevated heart rate and chest discomfort.? She has chronic atrial fibrillation.? Patient is asymptomatic at this time.? Heart rate average 83-93.? No chest pain but does have a chronic atrial fibrillation.? 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 Patient not complaining of any fever chills nausea vomiting or diaphoresis. No shortness of breath wheezing or cough. No abdominal pain constipation or diarrhea. No dysuria or hematuria. Able to move all extremities volitionally. Patient is agreeable for admission and stress test and echocardiogram. We will admit to observation. Patient History Medical History (Updated 04/19/22 @ 15:08 by Miko Hunter MD) Chronic pain Dementia Depression GERD (gastroesophageal reflux disease) Herpes encephalitis History of lumbar puncture (08/29/18) Hyperlipidemia Hypertension Hypoxia (10/10/18) Impaired fasting glucose Pulmonary fibrosis Stroke Surgical History History of ankle surgery (10/11/18) Family & Social History Social History: household members none lives independently Yes caregiver/support person Yes other Denies alcohol drinking or cigarette smoking. Her son of overdose 1 w Safety & Behavioral: Feels Safe in Current Yes Environment Been Physically Hurt or No Threatened By a Person Tobacco & Substance use: Smoking Status Former smoker alcohol intake current alcohol intake frequency holiday/special occasion Substance Use Type does not use Meds Home Medications and Allergies Home Medications Medication Instructions Recorded Confirmed Type furosemide 20 mg tablet 80 mg PO DAILY 12/07/17 04/19/22 History aspirin 81 mg tablet,delayed 81 mg PO DAILY 12/26/17 04/19/22 History release escitalopram oxalate 20 mg tablet 20 mg PO DAILY 10/10/18 04/19/22 History nystatin 100,000 unit/gram topical 1 applic topical BID 10/10/18 04/19/22 History powder omeprazole 20 mg capsule,delayed 20 mg PO DAILY 10/10/18 04/19/22 History release potassium chloride 10 mEq 20 meq PO BID 10/10/18 04/19/22 History tablet,extended release polyethylene glycol 3350 17 gram 17 gm PO DAILY #1 pkg 10/13/18 04/19/22 Rx oral powder packet cholecalciferol (vitamin D3) 50 2,000 unit PO DAILY 01/09/19 04/19/22 History mcg (2,000 unit) tablet (Vitamin D3) oxycodone 5 mg tablet 5 - 10 mg PO Q4H PRN pain #50 tabs 01/09/19 04/19/22 Rx rivaroxaban 20 mg tablet (Xarelto) 20 mg PO DAILY 01/09/19 04/19/22 History rosuvastatin 40 mg tablet 20 mg PO DAILY 01/09/19 04/19/22 History acetaminophen 500 mg tablet 1,000 mg PO TID 04/19/22 04/19/22 History albuterol sulfate 90 mcg/actuation 2 puff inhalation TID 04/19/22 04/19/22 History aerosol inhaler calcium carbonate 500 mg calcium 500 mg PO BID 04/19/22 04/19/22 History (1,250 mg) tablet (Oyster Shell Calcium 500) digoxin 125 mcg (0.125 mg) tablet 125 mcg PO QAM 04/19/22 04/19/22 History diltiazem HCl 240 mg 240 mg PO QAM 04/19/22 04/19/22 History capsule,extended release 24 hr docusate sodium 100 mg capsule 100 mg PO QPM 04/19/22 04/19/22 History ferrous sulfate 325 mg (65 mg 325 mg PO SEEINSTR 04/19/22 04/19/22 History iron) tablet (FeroSul) fluticasone propionate 50 50 mcg intranasal QAM 04/19/22 04/19/22 History mcg/actuation nasal spray,suspension gabapentin 800 mg tablet 800 mg PO TID 04/19/22 04/19/22 History (Neurontin) ondansetron 4 mg disintegrating 4 mg PO Q4H PRN Nausea 04/19/22 04/19/22 History tablet Allergies Allergy/AdvReac Type Severity Reaction Status Date / Time Sulfa (Sulfonamide Allergy Intermediate Rash Verified 04/19/22 13:45 Antibiotics) Review of Systems Review of Systems Narrative: Fourteen system review was completed and pertinent findings in the history of chief complaint. Exam Vital Signs (past 8 hours): - 04/19/22 13:45 04/19/22 14:28 04/19/22 14:29 Temperature 97.6 F Pulse Rate 119 H 112 H Respiratory Rate 16 22 Blood Pressure 152/76 H 145/90 H Pulse Oximetry 99 Oxygen Delivery Method Room Air 04/19/22 14:29 04/19/22 14:30 04/19/22 14:30 Temperature Pulse Rate 112 H 104 H Respiratory Rate 14 15 Blood Pressure 155/74 H Pulse Oximetry 91 94 Oxygen Delivery Method Oxygen Delivery Method Room Air Narrative Exam Narrative: GENERAL: in no distress, not toxic not dyspneic HEAD: Normocephalic. EYES: Pupils equal round? ENT:? Mucous membranes moist.? NECK: Trachea midline. CARDIOVASCULAR:? Irregular irregular.? Not tachycardic overtly although does however around 100 rate. RESPIRATORY: Clear to auscultation. Breath sounds equal bilaterally. No wheezes, rales, or rhonchi.? GASTROINTESTINAL: Abdomen soft, non-tender EXTREMITIES:? No gross deformities.? BACK:? No flank tenderness. NEURO: AOx4. SKIN:? Warm and dry PSYCH:? Not anxious in no acute signs of acute depression or acute mood changes, is cooperative Objective Labs 04/19/22 14:25 04/19/22 14:25 Labs: Laboratory Results - last 24 hr 04/19/22 04/19/22 04/19/22 13:52 14:25 14:25 WBC 7.3 RBC 4.17 Hgb 12.7 Hct 37.9 MCV 90.7 MCH 30.5 MCHC 33.7 RDW 13.9 Plt Count 239 Neut % (Auto) 72.3 Lymph % (Auto) 19.6 L Marshall % (Auto) 6.0 Eos % (Auto) 1.4 L Baso % (Auto) 0.7 Neut # (Auto) 5300 Lymph # (Auto) 1400 Marshall # (Auto) 400 Eos # (Auto) 100 Baso # (Auto) 0 PT 21.4 H INR 1.9 H APTT 46 H Sodium Potassium Chloride Carbon Dioxide BUN Creatinine Estimated GFR BUN/Creatinine Ratio Glucose Calcium Magnesium Total Bilirubin AST ALT Alkaline Phosphatase Total Creatine Kinase CK-MB (CK-2) CK-MB (CK-2) Rel Index Troponin I Total Protein Albumin Globulin Albumin/Globulin Ratio Lipase SARS-CoV-2 (PCR) Negative 04/19/22 14:25 WBC RBC Hgb Hct MCV MCH MCHC RDW Plt Count Neut % (Auto) Lymph % (Auto) Marshall % (Auto) Eos % (Auto) Baso % (Auto) Neut # (Auto) Lymph # (Auto) Marshall # (Auto) Eos # (Auto) Baso # (Auto) PT INR APTT Sodium 137 Potassium 4.0 Chloride 101 Carbon Dioxide 30 BUN 11 Creatinine 0.95 Estimated GFR 59 L BUN/Creatinine Ratio 11.6 Glucose 148 H Calcium 9.8 Magnesium 2.0 Total Bilirubin 0.6 AST 22 ALT 15 Alkaline Phosphatase 72 Total Creatine Kinase 47 CK-MB (CK-2) TNP CK-MB (CK-2) Rel Index TNP Troponin I 0.019 Total Protein 7.5 Albumin 4.2 Globulin 3.3 Albumin/Globulin Ratio 1.3 Lipase 34 SARS-CoV-2 (PCR) Assessment & Plan Assessment & Plan narrative: 1. Chest pain. Needs cardiac workup with echocardiogram and stress test. Previous echocardiogram demonstrated: Atrial fibrillation with rapid ventricular rate. The left ventricle is normal in size and wall thickness. Left ventricular systolic function is mildly reduced. The ejection fraction is estimated to be 35-40%. Based on the previous echocardiogram will initiate lisinopril 2.5 mg daily. Patient, per her med list is not on a beta-lv. This will be initiated. Patient on digoxin. We will continue. Measured digoxin level in the morning. 2. Rapid atrial fibrillation. Treat rate with continue digoxin and also metoprolol. Continue to monitor and treat. Continue anticoagulation with Xarelto. 3. Chronic pain. Maintain patient's regular pain medicine. 4.Dementia. Follow clinically and address as necessary 5. Depression. Continue patient's regular medication. 6. GERD (gastroesophageal reflux disease). Treat with PPI. 7. Hyperlipidemia. Continue treatment with atorvastatin while in hospital. And then can revert back to rosuvastatin on discharge. 8. Hypertension. Follow clinically and maintain patient's regular medication. 9. History of constipation. Provide patient's usual medication, sennosides and PEG 17 g. Daily. 10. Reactive airway disease per med reconciliation. Continue with albuterol inhaler. Other independent historians:? None Discussion of results, plan of care with independent HCP/other day hospitalist, ED provider Reviewed outside records:? Prior hospital records VTE Prophylaxis:? Pharmacological VTE prophylaxis. Patient already on Xarelto. This will be continued. Patient is admitted to the outpatient observation service due to the the need to evaluate further the patient's chest pain and concern for cardiac source. FEN: IV fluids:? NPO with expectation of cardiac stress test. Consultants: [employer] to read echocardiogram and cardiac stress test. Dispo: eventual d/c to home Code status: DNR code as discussed with the patient however patient is agreeable to specific testing such as echocardiogram and cardiac stress test. [X] I have utilized all available immediate resources to obtain, update, or review of the patient's current medications VTE Deep Vein Thrombosis/Pulmonary Embolism Present on Admission: Yes, Xarelto MIPS - Admit I confirm the patient?s Advance Care Plan is present, Code status is documented, Surrogate decision maker is in patient?s record: Yes MIPS - DC The patient has current or prior documentation of left ventricular ejection fraction (LVEF) less than 40%, or moderate or severely depressed left ventricular systolic function.: Yes COVID-19 COVID-19 status: Negative Result date/Date tested (Pos, Neg/Pending): 04/19/22 Time Spent With Patient Critical Care time: I spent a total of [] minutes of critical care time on this patient's care today; this time is exclusive of procedural time.
--- NOTE | 2022-04-19 15:33 | DI.NM.S_ITS ---
PROCEDURE: NM ERNIE PERF SPECT R&S PHARM Rest and pharmacological stress myocardial perfusion SPECT with gated imaging and ejection fraction RADIOPHARMACEUTICAL: 11.7 mCi Tc-99m tetrafosmin IV at rest and 27.1 mCi Tc-99m tetrafosmin IV at peak effect of pharmacological stress. Rht-cfe-gvuxwjog was performed. INDICATIONS: Chest pain TECHNIQUE: Radiopharmaceutical was injected at peak stress test, and also at rest. SPECT images were obtained. SPECT myocardial perfusion images were displayed in short axis, horizontal long axis, and vertical long axis views. Gated images were reviewed using Jamalon software. COMPARISON: None. CARDIAC STRESS: A pharmacologic stress test was performed under the supervision of an attending staff, using an infusion of lexiscan 0.4mg IV X1. Hemodynamic data: There is normal blood pressure and heart rate response to pharmacologic stress. Symptoms: The patient denied anginal chest pain. Aminophylline: none EKG: Atrial fibrillation present throughout the study. No diagnostic changes of ischemia; no ectopy. FINDINGS: Raw data: There is good myocardial uptake of radiotracer. No significant motion artifacts. Auvi-vd-lhmus ratio is 0.21 (normal is less than 0.38 for tetrafosmin tracer). Left ventricle function: Gated images demonstrate normal left ventricular wall thickening. No segmental wall motion abnormalities. No transient ischemic dilation; TID is 0.81 (normal less than 1.3). Left ventricle resting end diastolic volume is 89 mL. Left ventricle stress ejection fraction is 74%; normal range is above 45%. Myocardial perfusion: There is a very mild fixed distal anterior wall defect that is consistent with breast attenuation artifact as it was also seen on nuc stress dated 11/29/2019. Old non-transmural infarction can't be definitively excluded. No ischemia. SSS 0. No prone images obtained due to inadequate time. IMPRESSION: Low risk, probably normal pharmaceutical nuclear stress 1) There is a very mild fixed distal anterior wall defect that is consistent with breast attenuation artifact as it was also seen on nuclear stress dated 11/29/2019. Old non-transmural infarction can't be definitively excluded. No ischemia. SSS 0. No prone images obtained due to inadequate time. 2) Normal left ventricular size, wall motion, and systolic function (EF post stress 74%). 3) No diagnostic ST changes with lexiscan. 4) No angina during the study. 5) Compared to the nuclear stress test 11/29/2019, no significant change. Dictated by: Jose Parham MD on 04/20/2022 at 13:21 Approved by: Jose Parham MD on 04/20/2022 at 13:26
--- NOTE | 2022-04-19 15:33 | DI.ECHO.S_ITS ---
[facility]---------+ [facility] +---------+ : : [address] [place] : : : : [id number] : : : : Phone: [phone] Echocardiogram Report + + :Name: GUS SURAJ Pauline Study Date: 04/20/2022 Height: 68 in : :[facility] ReadingLocation: Weight: 200 lb : : Gender: Female BSA: 2.0 m2 : :: 1935 Age: 86 yrs BP: 145/90 mmHg: :Reason For Study: CHEST PAIN AND RAPID ATRIAL FIBRILLATION : :Ordering Physician: JIGNA, : :SURAJ DUNN Performed By: Miriam Chase : :Referring: SURAJ BENITO MD : + + Interpretation Summary The ejection fraction is estimated to be 45-50%. Compared to the prior exam, the left ventricular function is improved. The right ventricle is borderline dilated. The left atrium is severely dilated. There is mild mitral regurgitation. There is mild aortic valve sclerosis. There is mild to moderate tricuspid regurgitation. The right ventricular systolic pressure is estimated to be at least 54 mmHg based on an estimated right atrial pressure of 8 mm Hg. Compared to the prior echo exam, there has been an increase in the severity of pulmonary hypertension. Procedure: A two-dimensional transthoracic echocardiogram with color flow and Doppler was performed. The study quality was technically adequate. Comparison is made with the echocardiogram of 10/29/2021. The patient was in atrial fibrillation with heart rates between 60-75 bpm during the exam. Left Ventricle: The left ventricle is normal in size. Left ventricular wall thickness is mildly increased. The ejection fraction is estimated to be 45- 50%. Compared to the prior exam, the left ventricular function is improved. There are no obvious focal wall motion abnormalities noted but poor endocardial definition reduces the sensitivity for the detection of such. Diastolic function could not be accurately assessed due to atrial fibrillation. Right Ventricle: The right ventricle is borderline dilated. Right ventricular systolic function is mild to moderately reduced. Atria: The left atrium is severely dilated. The right atrium is mildly dilated. There is no Doppler evidence for an interatrial shunt. Mitral Valve: The mitral valve leaflets appear borderline thickened, but open well. There is mild mitral annular calcification. There is mild mitral regurgitation. Aortic Valve: The aortic valve is trileaflet. The aortic valve opens well. There is mild aortic valve sclerosis. There is no aortic valve stenosis. There is trace aortic regurgitation. Tricuspid Valve: The tricuspid valve leaflets are thin and pliable. There is mild to moderate tricuspid regurgitation. The right ventricular systolic pressure is estimated to be at least 54 mmHg based on an estimated right atrial pressure of 8 mm Hg. Compared to the prior echo exam, there has been an increase in the severity of pulmonary hypertension. Pulmonic Valve: The pulmonic valve leaflets are thin and pliable; valve motion is normal. There is mild pulmonic regurgitation. Great Vessels: The aortic root is normal size. The dimensions of the ascending aorta are normal. The IVC is dilated (diameter is greater than 2.1 cm) yet it collapses greater than 50% with a sniff. This suggests a right atrial pressure of 8 mm Hg. Pericardium/ Pleura There is no pericardial effusion. There is no pleural effusion. MMode/2D Measurements & Calculations LVIDd: 3.7 cm LVOT diam: 2.0 cm LVIDs: 2.6 cm Ao root diam: 3.2 cm FS: 30.7 % asc Aorta Diam: 3.3 cm IVSd: 1.1 cm Ao Arch Diam (Prox Trans): 2.3 cm LVPWd: 1.0 cm LV esquivel. diameter/BSA (cm/m^2): 1.8 LV sys. diameter/BSA (cm/m^2): 1.3 LA A2 area: 31.6 cm2 RA long axis: 7.2 cm LA A4 area: 29.2 cm2 RA area: 25.2 cm2 LA length (vol): 7.2 cm RA vol: 74.8 ml LA vol: 108.5 ml RA : 36.6 ml/m2 LA vol index: 53.1 ml/m2 IVC diam: 2.4 cm RVD1 (basal): 3.7 cm RVD2 (mid): 3.2 cm TAPSE: 1.3 cm Doppler Measurements & Calculations Ao V2 max: 124.4 cm/sec LVOT Max Glenn: 74.4 cm/sec Ao V2 mean: 91.4 cm/sec LV V1 max P.2 mmHg Ao max P.2 mmHg LV V1 VTI: 18.0 cm Ao mean P.7 mmHg CAT(I,D): 1.9 cm2 Ao V2 VTI: 28.8 cm CAT(V,D): 1.8 cm2 sev ratio: 0.62 CAT indexed to BSA (cm^2/m^2): 0.94 MV E max glenn: 106.5 cm/sec TR max glenn: 339.6 cm/sec MV A max glenn: 1.2 cm/sec TR max P.1 mmHg MV E/A: 90.9 PA V2 max: 81.1 cm/sec Med Peak E' Glenn: 7.4 cm/sec PA V2 mean: 59.0 cm/sec E/E' med: 14.4 PA mean P.5 mmHg Lat Peak E' Glenn: 9.5 cm/sec PA pr(Accel): 41.3 mmHg E/E' lat: 11.2 E/e' average: 12.8 MV dec time: 0.20 sec SV(LVOT): 55.5 ml Reading Physician:02:31 PM
[2022-04-19] MEDS: METOPROLOL IR 25 MG TABLET 12.5 MG PO (15:42)
[2022-04-19] MEDS: ACETAMINOPHEN 325 MG TABLET 650 MG PO (15:43)
[2022-04-19] MEDS: METOPROLOL ER 50 MG TABLET PO (16:17)
[2022-04-19] MEDS: SODIUM CHLORIDE 0.9% 1,000 ML 84 ML IV (16:18)
[2022-04-19] MEDS: ALBUTEROL 2.5 MG/3 ML NEB (ADULT) INH (20:23)
[2022-04-19] MEDS: ATORVASTATIN 20 MG TABLET 80 MG PO (21:23)
[2022-04-19] MEDS: ACETAMINOPHEN 325 MG TABLET 975 MG PO (21:23)
[2022-04-19] MEDS: GABAPENTIN 400 MG CAPSULE 800 MG PO (21:23)
[2022-04-19] MEDS: MELATONIN 3 MG TABLET PO (21:24)
[2022-04-20] VITALS: BP 116/50; PULSE 74; RESP 17; TEMP 36.2; O2SAT 94
[2022-04-20 04:00] VITALS: BP 141/64; PULSE 62; RESP 18; TEMP 36.1; O2SAT 91
[2022-04-20] MEDS: SODIUM CHLORIDE 0.9% 1,000 ML 84 ML IV (04:21)
[2022-04-20 05:26] LABS: Alanine Aminotransferase 12 IU/L (<35); Albumin 3.4 g/dL (3.5-5.0); Albumin Globulin Ratio 1.1 (1.0-2.8); Alkaline Phosphatase 63 U/L (38-126); Aspartate Aminotransferase 19 IU/L (14-36); BUN Creatinine Ratio 12.7 (6-22); Bilirubin Total 0.5 mg/dL (0.2-1.3); Blood Urea Nitrogen 10 mg/dL (7-17); Calcium 9.1 mg/dL (8.4-10.2); Carbon Dioxide 29 mmol/L (22-32); Chloride 104 mmol/L (98-107); Estimated Glomerular Filt Rate > 60 mL/min (>60); Globulin 3.1 g/dL (1.7-4.1); Glucose 97 mg/dL (80-110); HEMOLYSIS < 15 (0-50); Potassium 3.9 mmol/L (3.4-5.1); Sodium 137 mmol/L (137-145); Total Protein 6.5 g/dL (6.3-8.2)
[2022-04-20 05:29] LABS: Add Manual Diff / Slide Review NO; Basophils Absolute Auto 100 /uL (0-100); Basophils Percent Auto 0.8 % (0-2); Eosinophils Absolute Auto 200 /uL (0-450); Eosinophils Percent Auto 3.5 % (2-4); Hematocrit 34.8 % (36-46); Lymphocytes Absolute Auto 1400 /uL (1100-4500); Lymphocytes Percent Auto 23.7 % (25-40); Mean Corpuscular HGB Conc 34.4 % (30-36); Mean Corpuscular Hemoglobin 30.7 PG (26-34); Mean Corpuscular Volume 89.3 fL (80-100); Monocytes Absolute Auto 500 /uL (0-900); Monocytes Percent Auto 8.1 % (3-14); Neutrophils Absolute Auto 3900 /uL (1500-7000); Neutrophils Percent Auto 63.9 % (50-75); Platelet Count 211 X10^3/uL (150-400); Red Blood Cell Count 3.89 X10^6/uL (4.0-5.2); Red Cell Distribution Width 13.5 % (11.6-14.8)
[2022-04-20 05:37] LABS: Digoxin < 0.4 ng/mL (0.8-2.0)
[2022-04-20] MEDS: PANTOPRAZOLE DR 20 MG TABLET PO (06:46)
[2022-04-20 08:20] VITALS: BP 152/62; PULSE 61; RESP 18; TEMP 36.1; O2SAT 95
--- NOTE | 2022-04-20 09:09 | CM.DANOTE ---
Addendum entered by Elin Carrasquillo R.N. 04/20/22 10:53: Charted on the incorrect patient below. Plan is back to [facility], possibly today. Spoke to Trent nursing education specialist at [facility], patient is normally alert and oriented, wanted to have procedures done. He is prepared to take patient back today if she is ready. She has had echo already, pending stress test. Addendum entered by Elin Carrasquillo R.N. 04/20/22 10:51: Was able to speak to Trent nursing education specialist at [facility]. He was under the assumption that patient could go over to [facility] for a couple of days before going back. Patient most likely will want to go home, but let him know that this DC [employer] Analyst can send the referral over to [facility] to review. Did call Peggy at [facility], and she will review as back up. Plan is either back to [facility] versus going to [facility]. Original Note: DCP: Case received, EMR reviewed and checked on patient. She was sleeping. It is noted that patient resides at [facility]. Was able to contact [email or web address] at [facility] for further information on patient. DCP assessment completed with information currently available. Patient is an 86 year old female who admitted yesterday afternoon to the care of the hospitalist team. PCP: Dr. Root/VINH Post. Payer: confirmed: [facility]. Patient came to the hospital via wheel chair secondary to chest palpitations, had just resolved. She also was having some chest discomfort. Notes indicate that patient has history of atrial fibrillation, and is on Xarelto. Patient is DNR, comfort care. She was admitted for stress and echo, per patient's request. Attempted to meet with patient, but she was sleeping. Spoke to [email or web address] at [facility]. She was wondering why patient was here. Gave her update. Patient resides in the [facility] at [facility]. She is mostly in her wheel-chair, self propells. She is able to transfer herself sometimes on her own between wheel-chair and chair. She has assist with showers, comes to meals. P: DCP to continue to follow. Will see if patient will be ready for DC today, and will contact Trent nursing education specialist at [facility]. Elin Rain RN/General Assignment Reporter Discharge Planning/Care Management CM Discharge Assessment Start: 04/20/22 09:08 Freq: Status: Active Protocol: Document 04/20/22 09:08 (Rec: 04/20/22 09:09 [id number]) Discharge Planning Assessment Assigned Classified Ad Clerk Elin Carrasquillo RN/General Assignment Reporter Advance Directives? Yes: POLST Advance Directives on File No: copy at home- requested to bring in History Provided By Patient,Medical Record Prior Living Arrangements Assisted Living Comment Patient resides at [facility] Living Household Members none Type of transporation used prior to Relies on Others admit Facility Name Admitted From: [facility] Independent with ADL's No Is patient alert and oriented? Yes Needs Assistance With Bathing,Grooming,Meal Prep, Toileting,Managing Medications ,Home Chores / Shopping Caregiver for Another No DME Already Rented / Owned Wheelchair Comment Patient self propells in her wheel-chair Barriers to Discharge No Discharge Plan Assisted Living Facility Transportation Arrangement Facility will need to transport Referrals Initiated None needed Whiteboard Updated in Patient Room with Yes name and ext. # of Classified Ad Clerk Review Status In Process Next Review Type Continued Stay Review
--- NOTE | 2022-04-20 10:19 | PM.PN.1 ---
Exam Vital Signs (past 8 hours): - 04/20/22 04:00 04/20/22 08:20 Temperature 97.0 F L 97.0 F L Pulse Rate 62 61 Respiratory Rate 18 18 Blood Pressure 141/64 H 152/62 H Pulse Oximetry 91 95 Oxygen Flow Rate 0 Oxygen Delivery Method Room Air Oxygen Flow Rate 0 Narrative Exam Narrative: GENERAL: in no distress, not toxic not dyspneic HEAD: Normocephalic. EYES: Pupils equal round? ENT:? Mucous membranes moist.? NECK: Trachea midline. CARDIOVASCULAR:? Irregular irregular.? Not tachycardic overtly although does however around 100 rate. RESPIRATORY: Clear to auscultation. Breath sounds equal bilaterally. No wheezes, rales, or rhonchi.? GASTROINTESTINAL: Abdomen soft, non-tender EXTREMITIES:? No gross deformities.? BACK:? No flank tenderness. NEURO: AOx4. SKIN:? Warm and dry PSYCH:? Not anxious in no acute signs of acute depression or acute mood changes, is cooperative Objective Labs 04/20/22 04:48 04/20/22 04:48 Labs: Laboratory Results - last 24 hr 04/19/22 04/19/22 04/19/22 13:52 14:25 14:25 WBC 7.3 RBC 4.17 Hgb 12.7 Hct 37.9 MCV 90.7 MCH 30.5 MCHC 33.7 RDW 13.9 Plt Count 239 Neut % (Auto) 72.3 Lymph % (Auto) 19.6 L [place] % (Auto) 6.0 Eos % (Auto) 1.4 L Baso % (Auto) 0.7 Neut # (Auto) 5300 Lymph # (Auto) 1400 [place] # (Auto) 400 Eos # (Auto) 100 Baso # (Auto) 0 PT 21.4 H INR 1.9 H APTT 46 H Sodium Potassium Chloride Carbon Dioxide BUN Creatinine Estimated GFR BUN/Creatinine Ratio Glucose Calcium Magnesium Total Bilirubin AST ALT Alkaline Phosphatase Total Creatine Kinase CK-MB (CK-2) CK-MB (CK-2) Rel Index Troponin I Total Protein Albumin Globulin Albumin/Globulin Ratio Lipase Digoxin SARS-CoV-2 (PCR) Negative 04/19/22 04/19/22 04/20/22 14:25 20:47 04:48 WBC 6.0 RBC 3.89 L Hgb 12.0 Hct 34.8 L MCV 89.3 MCH 30.7 MCHC 34.4 RDW 13.5 Plt Count 211 Neut % (Auto) 63.9 Lymph % (Auto) 23.7 L [place] % (Auto) 8.1 Eos % (Auto) 3.5 Baso % (Auto) 0.8 Neut # (Auto) 3900 Lymph # (Auto) 1400 [place] # (Auto) 500 Eos # (Auto) 200 Baso # (Auto) 100 PT INR APTT Sodium 137 Potassium 4.0 Chloride 101 Carbon Dioxide 30 BUN 11 Creatinine 0.95 Estimated GFR 59 L BUN/Creatinine Ratio 11.6 Glucose 148 H Calcium 9.8 Magnesium 2.0 Total Bilirubin 0.6 AST 22 ALT 15 Alkaline Phosphatase 72 Total Creatine Kinase 47 CK-MB (CK-2) TNP CK-MB (CK-2) Rel Index TNP Troponin I 0.019 0.020 Total Protein 7.5 Albumin 4.2 Globulin 3.3 Albumin/Globulin Ratio 1.3 Lipase 34 Digoxin SARS-CoV-2 (PCR) 04/20/22 04/20/22 04:48 04:48 WBC RBC Hgb Hct MCV MCH MCHC RDW Plt Count Neut % (Auto) Lymph % (Auto) [place] % (Auto) Eos % (Auto) Baso % (Auto) Neut # (Auto) Lymph # (Auto) [place] # (Auto) Eos # (Auto) Baso # (Auto) PT INR APTT Sodium 137 Potassium 3.9 Chloride 104 Carbon Dioxide 29 BUN 10 Creatinine 0.79 Estimated GFR > 60 BUN/Creatinine Ratio 12.7 Glucose 97 Calcium 9.1 Magnesium Total Bilirubin 0.5 AST 19 ALT 12 Alkaline Phosphatase 63 Total Creatine Kinase CK-MB (CK-2) CK-MB (CK-2) Rel Index Troponin I Total Protein 6.5 Albumin 3.4 L Globulin 3.1 Albumin/Globulin Ratio 1.1 Lipase Digoxin < 0.4 L SARS-CoV-2 (PCR) [facility] Medical History (Updated 04/19/22 @ 15:08 by Miko Hunter MD) Chronic pain Dementia Depression GERD (gastroesophageal reflux disease) Herpes encephalitis History of lumbar puncture (08/29/18) Hyperlipidemia Hypertension Hypoxia (10/10/18) Impaired fasting glucose Pulmonary fibrosis Stroke Surgical History History of ankle surgery (10/11/18) Social History details: two years ago number of children: 2 household members: none lives independently: Yes caregiver/support person: Yes housing: apartment other: Denies alcohol drinking or cigarette smoking. Her son of overdose 1 w Smoking Status: Former smoker alcohol intake: current Assessment & Plan Assessment & Plan narrative: 1. Chest pain. Needs cardiac workup with echocardiogram and stress test. Previous echocardiogram demonstrated: Atrial fibrillation with rapid ventricular rate. The left ventricle is normal in size and wall thickness. Left ventricular systolic function is mildly reduced. The ejection fraction is estimated to be 35-40%. Based on the previous echocardiogram will initiate lisinopril 2.5 mg daily. Patient, per her med list is not on a beta-lv. This will be initiated. Patient on digoxin. We will continue. Measured digoxin level in the morning. 2. Rapid atrial fibrillation. Treat rate with continue digoxin and also metoprolol. Continue to monitor and treat. Continue anticoagulation with Xarelto. 3. Chronic pain. Maintain patient's regular pain medicine. 4. Dementia. Follow clinically and address as necessary 5. Depression. Continue patient's regular medication. 6. GERD (gastroesophageal reflux disease). Treat with PPI. 7. Hyperlipidemia. Continue treatment with atorvastatin while in hospital. And then can revert back to rosuvastatin on discharge. 8. Hypertension. Follow clinically and maintain patient's regular medication. 9. History of constipation. Provide patient's usual medication, sennosides and PEG 17 g. Daily. 10. Reactive airway disease per med reconciliation. Continue with albuterol inhaler. Other independent historians:? None Discussion of results, plan of care with independent HCP/other day hospitalist, ED provider Reviewed outside records:? Prior hospital records VTE Prophylaxis:? Pharmacological VTE prophylaxis. Patient already on Xarelto. This will be continued. Patient is admitted to the outpatient observation service due to the the need to evaluate further the patient's chest pain and concern for cardiac source. FEN: IV fluids:? NPO with expectation of cardiac stress test. Consultants: [employer] to read echocardiogram and cardiac stress test. Dispo: eventual d/c to home Code status: DNR code as discussed with the patient however patient is agreeable to specific testing such as echocardiogram and cardiac stress test. [X] I have utilized all available immediate resources to obtain, update, or review of the patient's current medications VTE Deep Vein Thrombosis/Pulmonary Embolism Present on Admission: Yes, Rikki MIPS - Admit I confirm the patient?s Advance Care Plan is present, Code status is documented, Surrogate decision maker is in patient?s record: Yes MIPS - DC The patient has current or prior documentation of left ventricular ejection fraction (LVEF) less than 40%, or moderate or severely depressed left ventricular systolic function.: Yes COVID-19 COVID-19 status: Negative Result date/Date tested (Pos, Neg/Pending): 04/19/22 Time Spent With Patient Critical Care time: I spent a total of [] minutes of critical care time on this patient's care today; this time is exclusive of procedural time.
[2022-04-20] MEDS: ALBUTEROL 2.5 MG/3 ML NEB (ADULT) INH (10:37)
[2022-04-20 10:38] VITALS: PULSE 65; RESP 16; O2SAT 93
[2022-04-20] MEDS: FERROUS SULFATE 325 MG TABLET PO (12:25)
[2022-04-20] MEDS: FLUTICASONE 120 SPRAY/16 GM SPRAY.SUSP NASAL (12:25)
[2022-04-20] MEDS: CYANOCOBALAMIN (VITAMIN B-12) 500 MCG TABLET 1000 MCG PO (12:26)
[2022-04-20] MEDS: METOPROLOL ER 50 MG TABLET PO (12:26)
[2022-04-20] MEDS: lisinopriL 5 MG TABLET 2.5 MG PO (12:28)
[2022-04-20] MEDS: POTASSIUM CHLORIDE 20 MEQ TAB PO (12:28)
[2022-04-20 12:30] VITALS: BP 179/99; PULSE 93; RESP 18; TEMP 36.5; O2SAT 97
[2022-04-20] MEDS: ASPIRIN EC 81 MG TABLET PO (12:30)
[2022-04-20] MEDS: RIVAROXABAN 10 MG TABLET 20 MG PO (12:30)
[2022-04-20] MEDS: ACETAMINOPHEN 325 MG TABLET 975 MG PO (12:30)
[2022-04-20] MEDS: FUROSEMIDE 40 MG TABLET 80 MG PO (12:31)
[2022-04-20] MEDS: dilTIAZem CD 240 MG CAP PO (12:31)
[2022-04-20] MEDS: CHOLECALCIFEROL (VITAMIN D3) 1,000 UNIT TABLET 1000 UNIT PO (12:32)
[2022-04-20] MEDS: GABAPENTIN 400 MG CAPSULE 800 MG PO (12:38)
[2022-04-20] MEDS: ESCITALOPRAM 10 MG TABLET 20 MG PO (12:38)
--- NOTE | 2022-04-20 13:50 | P.DS_ITS ---
History of Present Illness History of Present Illness Date Patient Seen: 04/20/22 Chief complaint: afib, bp is high Narrative: Patient brought here from [facility] across the [address] for complains of chest pain palpitations that has resolved.? Patient has history of atrial fibrillation and is on Xarelto.? Patient has had off and on chest discomfort for the past 1 week.? She did not mention this to ophthalmology services this morning when she was going to get her cataract procedure.? She was on the monitor and she did have elevated heart rate and chest discomfort.? She has c hronic atrial fibrillation.? Patient is asymptomatic at this time.? Heart rate average 83-93.? No chest pain but does have a chronic atrial fibrillation.? 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 Patient not complaining of any fever chills nausea vomiting or diaphoresis. No shortness of breath wheezing or cough. No abdominal pain constipation or diarrhea. No dysuria or hematuria. Able to move all extremities volitionally. Patient is agreeable for admission and stress test and echocardiogram. We will admit to observation. Discharge Providers Provider Date of admission: 04/19/22 15:09 Discharge Date: 04/20/22 Primary care physician: Pooja Root MD Discharge provider: Srathak Grant DO Summary Hospital Course Discharge Diagnosis: 1. Chest pain. Needs cardiac workup with echocardiogram and stress test. Previous echocardiogram demonstrated: Atrial fibrillation with rapid ventricular rate. The left ventricle is normal in size and wall thickness. Left ventricular systolic function is mildly reduced. The ejection fraction is estimated to be 35-40%. Based on the previous echocardiogram will initiate lisinopril 2.5 mg daily. Patient, per her med list is not on a beta-lv. This will be initiated. Patient on digoxin. We will continue. Measured digoxin level in the morning. 2. Rapid atrial fibrillation. Treat rate with continue digoxin and diltiazeml. Continue to monitor and treat. Continue anticoagulation with Xarelto. 3. Chronic pain. Maintain patient's regular pain medicine. 4. Dementia. Follow clinically and address as necessary 5. Depression. Continue patient's regular medication. 6. GERD (gastroesophageal reflux disease). Treat with PPI. 7. Hyperlipidemia. Continue treatment with atorvastatin while in hospital. And then can revert back to rosuvastatin on discharge. 8. Hypertension. Follow clinically and maintain patient's regular medication. 9. History of constipation. Provide patient's usual medication, sennosides and PEG 17 g. Daily. 10. Reactive airway disease per med reconciliation. Continue with albuterol inhaler. Hospital Course: Admitted for palpitations and chest pain. Found to be in Afib RVR and metoprolol was added. Patient already on diltiazem and digoxin as we. Repeat echo showed EF 45-50% with previous of 35-40%. Trops neg x2. Stress test was reassuring and showed no ischemia. Chest pain was likely related to A-fib RVR so her home diltiazem was increased to 300mg daily on discharge and dixogen continued. She should f/u with her early childhood associate teacher about switching to a beta lv from [facility] and adding an SHEYLA or ARB. Her home aspirin was stopped due to being on xarelto which was also continued. Time Spent with Patient Time spent: Greater than 30 minutes Exam Vital Signs (past 8 hours): - 04/20/22 08:20 04/20/22 10:38 04/20/22 12:30 Temperature 97.0 F L 97.7 F Pulse Rate 61 65 93 H Respiratory Rate 18 16 18 Blood Pressure 152/62 H 179/99 H Pulse Oximetry 95 93 97 Oxygen Delivery Method Room Air Oxygen Flow Rate 0 0 Oxygen Delivery Method Room Air Oxygen Flow Rate 0 Narrative Exam Narrative: GENERAL: in no distress, not toxic not dyspneic HEAD: Normocephalic. EYES: Pupils equal round? ENT:? Mucous membranes moist.? NECK: Trachea midline. CARDIOVASCULAR:? Irregular irregular.? Not tachycardic overtly although does however around 100 rate. RESPIRATORY: Clear to auscultation. Breath sounds equal bilaterally. No wheezes, rales, or rhonchi.? GASTROINTESTINAL: Abdomen soft, non-tender EXTREMITIES:? No gross deformities.? BACK:? No flank tenderness. NEURO: AOx4. SKIN:? Warm and dry PSYCH:? Not anxious in no acute signs of acute depression or acute mood changes, is cooperative Objective Labs 04/20/22 04:48 04/20/22 04:48 Labs: Laboratory Results - last 24 hr 04/19/22 04/19/22 04/19/22 13:52 14:25 14:25 WBC 7.3 RBC 4.17 Hgb 12.7 Hct 37.9 MCV 90.7 MCH 30.5 MCHC 33.7 RDW 13.9 Plt Count 239 Neut % (Auto) 72.3 Lymph % (Auto) 19.6 L [place] % (Auto) 6.0 Eos % (Auto) 1.4 L Baso % (Auto) 0.7 Neut # (Auto) 5300 Lymph # (Auto) 1400 [place] # (Auto) 400 Eos # (Auto) 100 Baso # (Auto) 0 PT 21.4 H INR 1.9 H APTT 46 H Sodium Potassium Chloride Carbon Dioxide BUN Creatinine Estimated GFR BUN/Creatinine Ratio Glucose Calcium Magnesium Total Bilirubin AST ALT Alkaline Phosphatase Total Creatine Kinase CK-MB (CK-2) CK-MB (CK-2) Rel Index Troponin I Total Protein Albumin Globulin Albumin/Globulin Ratio Lipase Digoxin SARS-CoV-2 (PCR) Negative 04/19/22 04/19/22 04/20/22 14:25 20:47 04:48 WBC 6.0 RBC 3.89 L Hgb 12.0 Hct 34.8 L MCV 89.3 MCH 30.7 MCHC 34.4 RDW 13.5 Plt Count 211 Neut % (Auto) 63.9 Lymph % (Auto) 23.7 L [place] % (Auto) 8.1 Eos % (Auto) 3.5 Baso % (Auto) 0.8 Neut # (Auto) 3900 Lymph # (Auto) 1400 [place] # (Auto) 500 Eos # (Auto) 200 Baso # (Auto) 100 PT INR APTT Sodium 137 Potassium 4.0 Chloride 101 Carbon Dioxide 30 BUN 11 Creatinine 0.95 Estimated GFR 59 L BUN/Creatinine Ratio 11.6 Glucose 148 H Calcium 9.8 Magnesium 2.0 Total Bilirubin 0.6 AST 22 ALT 15 Alkaline Phosphatase 72 Total Creatine Kinase 47 CK-MB (CK-2) TNP CK-MB (CK-2) Rel Index TNP Troponin I 0.019 0.020 Total Protein 7.5 Albumin 4.2 Globulin 3.3 Albumin/Globulin Ratio 1.3 Lipase 34 Digoxin SARS-CoV-2 (PCR) 04/20/22 04/20/22 04:48 04:48 WBC RBC Hgb Hct MCV MCH MCHC RDW Plt Count Neut % (Auto) Lymph % (Auto) [place] % (Auto) Eos % (Auto) Baso % (Auto) Neut # (Auto) Lymph # (Auto) [place] # (Auto) Eos # (Auto) Baso # (Auto) PT INR APTT Sodium 137 Potassium 3.9 Chloride 104 Carbon Dioxide 29 BUN 10 Creatinine 0.79 Estimated GFR > 60 BUN/Creatinine Ratio 12.7 Glucose 97 Calcium 9.1 Magnesium Total Bilirubin 0.5 AST 19 ALT 12 Alkaline Phosphatase 63 Total Creatine Kinase CK-MB (CK-2) CK-MB (CK-2) Rel Index Troponin I Total Protein 6.5 Albumin 3.4 L Globulin 3.1 Albumin/Globulin Ratio 1.1 Lipase Digoxin < 0.4 L SARS-CoV-2 (PCR) [facility] Medical History (Updated 04/19/22 @ 15:08 by Miko Hunter MD) Chronic pain Dementia Depression GERD (gastroesophageal reflux disease) Herpes encephalitis History of lumbar puncture (08/29/18) Hyperlipidemia Hypertension Hypoxia (10/10/18) Impaired fasting glucose Pulmonary fibrosis Stroke Surgical History History of ankle surgery (10/11/18) Social History details: two years ago number of children: 2 household members: none lives independently: Yes caregiver/support person: Yes housing: apartment other: Denies alcohol drinking or cigarette smoking. Her son of overdose 1 w Smoking Status: Former smoker alcohol intake: current Discharge Plan Discharge Plan Patient Disposition: Home Provider Discharge Comment: You were admitted with chest pain and palpitations and found to be in fast A-fib. You underwent a stress test and echo which were reassuring. I've increased your home diltiazem to 300mg daily to prevent future rapid A-fib episodes. I've also stopped your aspirin as you don't need to be on it with xarelto. Continue all your other meds as prescribed. Discharge orders & Medications Prescriptions: New diltiazem HCl 300 mg capsule,extended release 24hr 300 mg PO DAILY Qty: 90 0RF Continued nystatin 100,000 unit/gram Powder 1 applic TOPICAL BID Rx Instructions: right groin rash until resolve, breast escitalopram oxalate 20 mg tablet 20 mg PO DAILY Label Comments: TK 1 T PO QD potassium chloride 10 mEq Tablet Extended Release 20 meq PO BID omeprazole 20 mg capsule,delayed release(DR/EC) 20 mg PO DAILY Label Comments: TK 1 C PO QD polyethylene glycol 3350 17 gram Powder In Packet 17 gm PO DAILY Qty: 1 0RF furosemide 20 mg Tablet 80 mg PO DAILY oxycodone 5 mg tablet 5 - 10 mg PO Q4H PRN (Reason: pain) Qty: 50 0RF Rx Instructions: exempt postop rosuvastatin 40 mg Tablet 20 mg PO DAILY cholecalciferol (vitamin D3) [Vitamin D3] 2,000 unit Tablet 2,000 unit PO DAILY Xarelto 20 mg Tablet 20 mg PO DAILY acetaminophen 500 mg tablet 1,000 mg PO TID calcium carbonate [Oyster Shell Calcium 500] 500 mg calcium (1,250 mg) tablet 500 mg PO BID gabapentin [Neurontin] 800 mg tablet 800 mg PO TID ferrous sulfate [FeroSul] 325 mg (65 mg iron) tablet 325 mg PO SEEINSTR Rx Instructions: Take one tablet every Monday, Monday, and Monday. docusate sodium 100 mg capsule 100 mg PO QPM digoxin 125 mcg (0.125 mg) tablet 125 mcg PO QAM Rx Instructions: Hold if heart rate is less <60 bpm albuterol sulfate 90 mcg/actuation HFA aerosol inhaler 2 puff INHALATION TID ondansetron 4 mg tablet,disintegrating 4 mg PO Q4H PRN (Reason: Nausea) fluticasone propionate 50 mcg/actuation spray,suspension 50 mcg INTRANASAL QAM Discontinued aspirin 81 mg Tablet,Delayed Release (Dr/Ec) 81 mg PO DAILY diltiazem HCl 240 mg capsule,extended release 24hr 240 mg PO QAM Follow up/Referrals: Pooja Root MD [Primary Care Provider] - 2 Weeks Visit Report/Discharge Packet Instructions: DI for Atrial Fibrillation, DI for Diarrhea and Traveler's Diarrhea -- Adult, How to Prevent Falls, DI for Chest Pain Stand Alone Forms: Patient Portal/API, Stroke Signs & Symptoms Discharge Data Primary Care Provider: Pooja Root Attending Provider: Tali Bhagat
[2022-04-20 15:17] LABS: Clostridium Difficile Tox PCR Negative for C. diff (Negative)
--- NOTE | 2022-04-20 17:54 | PC.NURSE ---
Discharge: Pt feels ready to d/c to home. Has had no c/p. Has had 3 liquid stools. MD made aware and stool checked for c-diff and was negative. D/c instructions reviewed with pt and staff from facility. Questions answered. Pt transfered to facility via their van.
== END 2022-04-20 15:48 | disposition home or self-care (01) ==
LOC: ED 15:08 → AC 15:10
PROVIDERS: Student in an Organized Health Care Education/Training Program; Admitting Provider Neuromusculoskeletal Medicine, Sports Medicine; Emergency Provider Emergency Medicine; Family Provider Nurse Practitioner Family; PCP Internal Medicine; Referring Provider Emergency Medicine; Visit Provider Neuromusculoskeletal Medicine, Sports Medicine
DX: R00.2 Palpitations (principal); R07.9 Chest pain, unspecified; Z79.01 Long term (current) use of anticoagulants; I48.20 Chronic atrial fibrillation, unspecified; G89.29 Other chronic pain; F03.90 Unspecified dementia, unspecified severity, without behavioral disturbance, psychotic disturbance, mood disturbance, and anxiety; E78.5 Hyperlipidemia, unspecified; I10 Essential (primary) hypertension; F32.A Depression, unspecified; K21.9 Gastro-esophageal reflux disease without esophagitis; J45.909 Unspecified asthma, uncomplicated; K59.00 Constipation, unspecified; Z20.822 Contact with and (suspected) exposure to COVID-19
CPT/HCPCS: 36415; 71045; 78452; 80053; 80162; 82550; 83690; 83735; 84484; 85025; 85610; 85730; 87493; 87635; 93005; 93017; 93306; 94640; 96360; 96361; 99283; 99284; C9803; G0378; A9502; J2785; J7613

== ENCOUNTER → 2022-06-15 07:18 | Outpatient (ROUT) | payer OTHER, SELFPAY ==
[2022-04-19 15:55] VITALS: BMI 30.4
[2022-06-15 08:06] LABS: Digoxin < 0.4 ng/mL (0.8-2.0)
== END ==
PROVIDERS: Family Provider Nurse Practitioner Family; PCP Internal Medicine; Visit Provider Internal Medicine
DX: I48.91 Unspecified atrial fibrillation (principal)
CPT/HCPCS: 36415; 80162

== ENCOUNTER → 2022-08-10 07:22 | Outpatient (ROUT) | payer OTHER, SELFPAY ==
[2022-04-19 15:55] VITALS: BMI 30.4
[2022-08-10 08:15] LABS: Add Manual Diff / Slide Review NO; Basophils Absolute Auto 100 /uL (0-100); Basophils Percent Auto 0.8 % (0-2); Eosinophils Absolute Auto 200 /uL (0-450); Eosinophils Percent Auto 2.5 % (2-4); Hematocrit 37.5 % (36-46); Hemoglobin 12.8 g/dL (12.0-16.0); Lymphocytes Absolute Auto 1600 /uL (1100-4500); Lymphocytes Percent Auto 17.9 % (25-40); Mean Corpuscular HGB Conc 34.2 % (30-36); Mean Corpuscular Hemoglobin 31.5 PG (26-34); Mean Corpuscular Volume 92.1 fL (80-100); Monocytes Absolute Auto 600 /uL (0-900); Monocytes Percent Auto 6.7 % (3-14); Neutrophils Absolute Auto 6400 /uL (1500-7000); Neutrophils Percent Auto 72.1 % (50-75); Platelet Count 277 X10^3/uL (150-400); Red Blood Cell Count 4.07 X10^6/uL (4.0-5.2); Red Cell Distribution Width 13.4 % (11.6-14.8); White Blood Cell Count 8.9 X10^3/uL (4.5-11.0)
[2022-08-10 08:46] LABS: HEMOLYSIS < 15 (0-50); Iron 73 ug/dL (37-170)
[2022-08-10 08:48] LABS: Alanine Aminotransferase 15 IU/L (<35); Albumin 4.1 g/dL (3.5-5.0); Albumin Globulin Ratio 1.4 (1.0-2.8); Alkaline Phosphatase 89 U/L (38-126); Aspartate Aminotransferase 23 IU/L (14-36); BUN Creatinine Ratio 7.6 (6-22); Bilirubin Total 0.5 mg/dL (0.2-1.3); Blood Urea Nitrogen 7 mg/dL (7-17); Calcium 9.8 mg/dL (8.4-10.2); Carbon Dioxide 27 mmol/L (22-32); Chloride 101 mmol/L (98-107); Estimated Glomerular Filt Rate > 60 mL/min (>60); Glucose 103 mg/dL (80-110); HEMOLYSIS < 15 (0-50); Potassium 4.4 mmol/L (3.4-5.1); Sodium 137 mmol/L (137-145); Total Protein 7.1 g/dL (6.3-8.2)
[2022-08-10 08:57] LABS: Percent Iron Saturation 22 % (15-50); Total Iron Binding Capacity 327 ug/dL (265-497); Transferrin 257 mg/dL (206-381)
== END ==
PROVIDERS: Family Provider Nurse Practitioner Family; PCP Internal Medicine; Visit Provider Nurse Practitioner Family
DX: D64.9 Anemia, unspecified (principal); F32.A Depression, unspecified
CPT/HCPCS: 36415; 80053; 83540; 83550; 85025

== ENCOUNTER 2022-09-16 16:36 | Emergency (ER) | payer OTHER, SELFPAY ==
[2022-04-19 15:55] VITALS: BMI 30.4
[2022-09-16] VITALS (12 sets, daily range): BP systolic 123–155; BP diastolic 59–76; PULSE 62–71; RESP 12–38; TEMP 36.6–36.9; O2SAT 92–100; BMI 31.9
--- NOTE | 2022-09-16 16:46 | DI.RAD.S_ITS ---
PROCEDURE: XR CHEST 1V INDICATIONS: chest pain TECHNIQUE: One view of the chest was acquired. COMPARISON: [facility], CR, XR CHEST 1V, 04/19/2022, 14:04. FINDINGS: Surgical changes and devices: None. Lungs and pleura: Patient is mildly rotated towards the right. Lungs are clear. No pleural effusions or pneumothorax. Mediastinum: Mediastinal contours appear normal. Heart size is normal. Bones and chest wall: No suspicious bony lesions. Overlying soft tissues appear unremarkable. IMPRESSION: No acute cardiopulmonary abnormality. Approved by: Dave Rea M.D. on 09/16/2022 at 17:39
[2022-09-16 17:09] LABS: Add Manual Diff / Slide Review NO; Basophils Absolute Auto 100 /uL (0-100); Basophils Percent Auto 1.1 % (0-2); Eosinophils Absolute Auto 100 /uL (0-450); Eosinophils Percent Auto 1.5 % (2-4); Hemoglobin 12.6 g/dL (12.0-16.0); Lymphocytes Absolute Auto 2400 /uL (1100-4500); Lymphocytes Percent Auto 25.3 % (25-40); Mean Corpuscular Hemoglobin 30.9 PG (26-34); Mean Corpuscular Volume 90.8 fL (80-100); Monocytes Absolute Auto 700 /uL (0-900); Monocytes Percent Auto 6.9 % (3-14); Neutrophils Absolute Auto 6300 /uL (1500-7000); Neutrophils Percent Auto 65.2 % (50-75); Platelet Count 294 X10^3/uL (150-400); Red Blood Cell Count 4.07 X10^6/uL (4.0-5.2); White Blood Cell Count 9.7 X10^3/uL (4.5-11.0)
[2022-09-16 17:15] LABS: INR 2.2 (0.9-1.3); Prothrombin Time 25.6 SECONDS (10.1-12.7)
[2022-09-16 17:17] LABS: PTT Partial Thromboplastin Tim 44 SECONDS (26-36)
[2022-09-16 17:25] LABS: Alanine Aminotransferase 13 IU/L (<35); Albumin 4.2 g/dL (3.5-5.0); Albumin Globulin Ratio 1.2 (1.0-2.8); Alkaline Phosphatase 78 U/L (38-126); Aspartate Aminotransferase 22 IU/L (14-36); BUN Creatinine Ratio 10.3 (6-22); Bilirubin Total 0.7 mg/dL (0.2-1.3); Blood Urea Nitrogen 10 mg/dL (7-17); Calcium 9.5 mg/dL (8.4-10.2); Carbon Dioxide 27 mmol/L (22-32); Chloride 96 mmol/L (98-107); Creatine Kinase 44 U/L (30-135); Estimated Glomerular Filt Rate 58 mL/min (>60); Globulin 3.5 g/dL (1.7-4.1); Glucose 101 mg/dL (80-110); HEMOLYSIS 31 (0-50); Lipase 49 U/L (23-300); Sodium 132 mmol/L (137-145); Total Protein 7.7 g/dL (6.3-8.2)
[2022-09-16 17:34] LABS: Troponin I 0.016 ng/mL (0.01-0.034)
[2022-09-16 17:35] LABS: NT-proBNP (BNP-Adult 18+) 883 pg/mL (<450)
[2022-09-16 19:30] LABS: Troponin I 0.016 ng/mL (0.01-0.034)
[2022-09-16 19:57] LABS: Adenovirus Not Detected (Not Detect); B. parapertussis Not Detected (Not Detecte); Bordetella pertussis Not Detected (Not Detecte); Chlamydophila pneumoniae Not Detected (Not Detect); Coronavirus 229E Not Detected (Not Detect); Coronavirus HKU1 Not Detected (Not Detect); Coronavirus NL 63 Not Detected (Not Detect); Coronavirus OC43 Not Detected (Not Detect); Human Metapneumovirus Not Detected (Not Detect); Human Rhinovirus/Enterovirus Not Detected (Not Detect); Influenza A Not Detected (Not Detect); Influenza B Not Detected (Not Detect); Mycoplasma pneumoniae Not Detected (Not Detect); Parainfluenza Virus 1 Not Detected (Not Detect); Parainfluenza Virus 2 Not Detected (Not Detect); Parainfluenza Virus 3 Not Detected (Not Detect); Parainfluenza Virus 4 Not Detected (Not Detect); Respiratory Syncytial Virus Not Detected (Not Detect); SARS- CoV-2 Not Detected (Not Detecte)
--- NOTE | 2022-09-16 20:50 | ED.SOB ---
HPI - SOB/Dyspnea General Chief Complaint: Shortness of Breath/Dyspnea Stated Complaint: Chest Pain/SOB Time Seen by Provider: 09/16/22 17:49 Source: patient and EMS Mode of arrival: EMS Limitations: no limitations History of Present Illness HPI Narrative: Patient is a 86-year-old female history of atrial fibrillation on Xarelto, hypertension hyperlipidemia presenting chest discomfort. She reports that she was sitting there when she felt some chest discomfort. She denies any shortness breath although she is mildly tachypneic. No history of congestive heart failure. He denies any fever chills nausea vomiting abdominal pain. Reports that her legs are chronically swollen. She was admitted in March with atrial fibrillation, she had nuclear stress test echocardiogram during that admission. Echo showed EF of 45-50% with a dilated atrium and a low risk nuclear stress test. Related Data Home Medications Medication Instructions Recorded Confirmed furosemide 20 mg tablet 80 mg PO DAILY 12/07/17 04/19/22 escitalopram oxalate 20 mg tablet 20 mg PO DAILY 10/10/18 04/19/22 nystatin 100,000 unit/gram topical 1 applic topical BID 10/10/18 04/19/22 powder omeprazole 20 mg capsule,delayed 20 mg PO DAILY 10/10/18 04/19/22 release potassium chloride 10 mEq 20 meq PO BID 10/10/18 04/19/22 tablet,extended release cholecalciferol (vitamin D3) 50 2,000 unit PO DAILY 01/09/19 04/19/22 mcg (2,000 unit) tablet (Vitamin D3) rivaroxaban 20 mg tablet (Xarelto) 20 mg PO DAILY 01/09/19 04/19/22 rosuvastatin 40 mg tablet 20 mg PO DAILY 01/09/19 04/19/22 acetaminophen 500 mg tablet 1,000 mg PO TID 04/19/22 04/19/22 albuterol sulfate 90 mcg/actuation 2 puff inhalation TID 04/19/22 04/19/22 aerosol inhaler calcium carbonate 500 mg calcium 500 mg PO BID 04/19/22 04/19/22 (1,250 mg) tablet (Oyster Shell Calcium 500) digoxin 125 mcg (0.125 mg) tablet 125 mcg PO QAM 04/19/22 04/19/22 docusate sodium 100 mg capsule 100 mg PO QPM 04/19/22 04/19/22 ferrous sulfate 325 mg (65 mg 325 mg PO SEEINSTR 04/19/22 04/19/22 iron) tablet (FeroSul) fluticasone propionate 50 50 mcg intranasal QAM 04/19/22 04/19/22 mcg/actuation nasal spray,suspension gabapentin 800 mg tablet 800 mg PO TID 04/19/22 04/19/22 (Neurontin) ondansetron 4 mg disintegrating 4 mg PO Q4H PRN Nausea 04/19/22 04/19/22 tablet Previous Rx's Medication Instructions Recorded polyethylene glycol 3350 17 gram 17 gm PO DAILY #1 pkg 10/13/18 oral powder packet oxycodone 5 mg tablet 5 - 10 mg PO Q4H PRN pain #50 tabs 01/09/19 diltiazem HCl 300 mg 300 mg PO DAILY #90 caps 04/20/22 capsule,extended release 24 hr Allergies Allergy/AdvReac Type Severity Reaction Status Date / Time Sulfa (Sulfonamide Allergy Intermediate Rash Verified 04/19/22 13:45 Antibiotics) Review of Systems Review of Systems ROS Unobtainable: All systems reviewed & are unremarkable except as noted in HPI and below Patient History Medical History (Updated 09/16/22 @ 21:11 by Ana M Martinez DO) Chronic pain Dementia Depression GERD (gastroesophageal reflux disease) Herpes encephalitis History of lumbar puncture (08/29/18) Hyperlipidemia Hypertension Hypoxia (10/10/18) Impaired fasting glucose Pulmonary fibrosis Stroke Surgical History History of ankle surgery (10/11/18) Social History details: two years ago number of children: 2 household members: none lives independently: Yes caregiver/support person: Yes housing: apartment other: Denies alcohol drinking or cigarette smoking. Her son of overdose 1 w Smoking Status: Former smoker alcohol intake: current Smoking Status: Former smoker alcohol intake frequency: holidays/special occasions only Substance Use Type: does not use Exam Initial Vital Signs Initial Vital Signs: Vital Signs Temperature 98.4 F 09/16/22 16:44 Pulse Rate 63 09/16/22 16:44 Respiratory Rate 20 09/16/22 16:44 Blood Pressure 144/65 H 06/23/23 16:44 Pulse Oximetry 98 09/16/22 16:44 Oxygen Delivery Method Room Air 09/16/22 16:44 GENERAL: Alert pleasant 86-year-old female HEENT: Head atraumatic,EOMI, pupils reactive, face symmetric, [moist] mucous membranes CARDIOVASCULAR: Irregularly irregular not tachycardic no murmur RESPIRATORY: Breath sounds equal bilaterally, no wheezes rales or rhonchi. ABDOMEN: Soft, nontender. Normoactive bowel sounds all 4 quadrants. No guarding or rebound. EXTREMITIES: Normal range of motion, no clubbing or edema. Neurovascularly intact NEUROLOGICAL: Alert and oriented x4. SKIN: Warm, dry, no laceration, no petechiae, no rashes or lesions. Course Orders Ordered: Discontinued Medications Aspirin (Aspirin 81 Mg Chew Tab) 324 mg PO NOW ONE Stop: 09/16/22 16:47 Last Admin: 09/16/22 16:47 Dose: Not Given Documented By: JUAN LUIS Vital Signs Vital signs: Vital Signs - 8 hr 09/16/22 21:00 09/16/22 21:00 Temperature 97.8 F Pulse Rate 69 Respiratory Rate 24 Blood Pressure 143/76 H Pulse Oximetry 96 MDM - SOB/Dyspnea Lab Data 09/16/22 17:00 09/16/22 17:00 Labs: Lab Results 09/16/22 09/16/22 09/16/22 Range/Units 17:00 17:00 17:00 WBC 9.7 (4.5-11.0) X10^3/uL RBC 4.07 (4.0-5.2) X10^6/uL Hgb 12.6 (12.0-16.0) g/dL Hct 37.0 (36-46) % MCV 90.8 (80-100) fL MCH 30.9 (26-34) PG MCHC 34.0 (30-36) % RDW 13.0 (11.6-14.8) % Plt Count 294 (150-400) X10^3/uL Neut % (Auto) 65.2 (50-75) % Lymph % (Auto) 25.3 (25-40) % [place] % (Auto) 6.9 (3-14) % Eos % (Auto) 1.5 L (2-4) % Baso % (Auto) 1.1 (0-2) % Neut # (Auto) 6300 (7092-6503) /uL Lymph # (Auto) 2400 (7285-6736) /uL [place] # (Auto) 700 (0-900) /uL Eos # (Auto) 100 (0-450) /uL Baso # (Auto) 100 (0-100) /uL PT 25.6 H (10.1-12.7) SECONDS INR 2.2 H (0.9-1.3) APTT 44 H (26-36) SECONDS Sodium 132 L (137-145) mmol/L Potassium 4.0 (3.4-5.1) mmol/L Chloride 96 L (98-107) mmol/L Carbon Dioxide 27 (22-32) mmol/L BUN 10 (7-17) mg/dL Creatinine 0.97 (0.52-1.04) mg/dL Estimated GFR 58 L (>60) mL/min BUN/Creatinine Ratio 10.3 (6-22) Glucose 101 (80-110) mg/dL Calcium 9.5 (8.4-10.2) mg/dL Magnesium 2.0 (1.6-2.3) mg/dL Total Bilirubin 0.7 (0.2-1.3) mg/dL AST 22 (14-36) IU/L ALT 13 (<35) IU/L Alkaline Phosphatase 78 (38-126) U/L Total Creatine Kinase 44 (30-135) U/L CK-MB (CK-2) TNP CK-MB (CK-2) Rel Index TNP Troponin I 0.016 (0.01-0.034) ng/mL NT-Pro-B Natriuret Pep (<450) pg/mL Total Protein 7.7 (6.3-8.2) g/dL Albumin 4.2 (3.5-5.0) g/dL Globulin 3.5 (1.7-4.1) g/dL Albumin/Globulin Ratio 1.2 (1.0-2.8) Lipase 49 (23-300) U/L Chlamy pneumoniae PCR (Not Detect) Adenovirus (PCR) (Not Detect) B. pertussis DNA (PCR) (Not Detecte) B.parapertussis DNA PCR (Not Detecte) Coronavirus OC43 (PCR) (Not Detect) Coronavirus HKU1 (PCR) (Not Detect) Coronavirus 229E (PCR) (Not Detect) SARS-CoV-2 (PCR) (Not Detecte) Coronavirus NL63 (PCR) (Not Detect) Human Metapneumovir PCR (Not Detect) Influenza Type A (PCR) (Not Detect) Influenza Type B (PCR) (Not Detect) M. pneumoniae (PCR) (Not Detect) Parainfluenza 1 (PCR) (Not Detect) Parainfluenza 2 (PCR) (Not Detect) Parainfluenza 3 (PCR) (Not Detect) Parainfluenza 4 (PCR) (Not Detect) RSV (PCR) (Not Detect) Entero/Rhino (PCR) (Not Detect) 09/16/22 09/16/22 09/16/22 Range/Units 17:00 18:57 19:00 WBC (4.5-11.0) X10^3/uL RBC (4.0-5.2) X10^6/uL Hgb (12.0-16.0) g/dL Hct (36-46) % MCV (80-100) fL MCH (26-34) PG MCHC (30-36) % RDW (11.6-14.8) % Plt Count (150-400) X10^3/uL Neut % (Auto) (50-75) % Lymph % (Auto) (25-40) % [place] % (Auto) (3-14) % Eos % (Auto) (2-4) % Baso % (Auto) (0-2) % Neut # (Auto) (1805-6463) /uL Lymph # (Auto) (6422-6131) /uL [place] # (Auto) (0-900) /uL Eos # (Auto) (0-450) /uL Baso # (Auto) (0-100) /uL PT (10.1-12.7) SECONDS INR (0.9-1.3) APTT (26-36) SECONDS Sodium (137-145) mmol/L Potassium (3.4-5.1) mmol/L Chloride (98-107) mmol/L Carbon Dioxide (22-32) mmol/L BUN (7-17) mg/dL Creatinine (0.52-1.04) mg/dL Estimated GFR (>60) mL/min BUN/Creatinine Ratio (6-22) Glucose (80-110) mg/dL Calcium (8.4-10.2) mg/dL Magnesium (1.6-2.3) mg/dL Total Bilirubin (0.2-1.3) mg/dL AST (14-36) IU/L ALT (<35) IU/L Alkaline Phosphatase (38-126) U/L Total Creatine Kinase (30-135) U/L CK-MB (CK-2) CK-MB (CK-2) Rel Index Troponin I 0.016 (0.01-0.034) ng/mL NT-Pro-B Natriuret Pep 883 H (<450) pg/mL Total Protein (6.3-8.2) g/dL Albumin (3.5-5.0) g/dL Globulin (1.7-4.1) g/dL Albumin/Globulin Ratio (1.0-2.8) Lipase (23-300) U/L Chlamy pneumoniae PCR Not detected (Not Detect) Adenovirus (PCR) Not detected (Not Detect) B. pertussis DNA (PCR) Not detected (Not Detecte) B.parapertussis DNA PCR Not detected (Not Detecte) Coronavirus OC43 (PCR) Not detected (Not Detect) Coronavirus HKU1 (PCR) Not detected (Not Detect) Coronavirus 229E (PCR) Not detected (Not Detect) SARS-CoV-2 (PCR) Not detected (Not Detecte) Coronavirus NL63 (PCR) Not detected (Not Detect) Human Metapneumovir PCR Not detected (Not Detect) Influenza Type A (PCR) Not detected (Not Detect) Influenza Type B (PCR) Not detected (Not Detect) M. pneumoniae (PCR) Not detected (Not Detect) Parainfluenza 1 (PCR) Not detected (Not Detect) Parainfluenza 2 (PCR) Not detected (Not Detect) Parainfluenza 3 (PCR) Not detected (Not Detect) Parainfluenza 4 (PCR) Not detected (Not Detect) RSV (PCR) Not detected (Not Detect) Entero/Rhino (PCR) Not detected (Not Detect) Urine Dip Bedside Urine Glucose Negative Bedside Urine Bilirubin - Negative Bedside Urine Ketone - Negative Urine Specific Downs 1.005 Bedside Urine Occult Blood - Negative Bedside Urine pH 7.0 Bedside Urine Protein - Negative Bedside Urine Urobilinogen - Negative Bedside Urine Nitrite - Negative Bedside Urine Leukocytes - Negative Esterase Imaging Data Chest x-ray: Radiologist's Impression: PROCEDURE:? XR CHEST 1V ? INDICATIONS:? chest pain ? TECHNIQUE:? One view of the chest was acquired.? ? COMPARISON:? [facility], CR, XR CHEST 1V, 04/19/2022, 14:04. ? FINDINGS:? ? Surgical changes and devices:? None.? ? Lungs and pleura:? Patient is mildly rotated towards the right.? Lungs are clear.? No pleural effusions or pneumothorax.? ? Mediastinum:? Mediastinal contours appear normal.? Heart size is normal.? ? Bones and chest wall:? No suspicious bony lesions.? Overlying soft tissues appear unremarkable.? ? IMPRESSION:? No acute cardiopulmonary abnormality. ? ? ? Approved by: Daev Rea M.D. on 09/16/2022 at 17:39 ECG Data Interpretation: Atrial fibrillation rate [address] changes similar to previous EKGs MDM Narrative Medical decision making narrative: Patient is a 86-year-old female presents today with chest discomfort and shortness of breath. She is not hypoxic tachycardic or febrile. Chest x-ray is clear. She is no leukocytosis or anemia electrolytes are within normal limits no evidence of congestive heart failure. She is is in AFib but chronically in AFib and currently rate controlled. She is a negative viral panel. He has been in the emergency department for number of hours she is 2- troponins. Overall feeling better. At this time does not meet admission criteria. She also has already had workup last 6 months with echocardiogram and nuclear stress test. She has been pain-free in the ED for a number of hours. Discharge Plan Departure Patient Disposition: Home Clinical Impression: Atypical chest pain Instructions: DI for Atypical Chest Pain Activity Restrictions/Additional Instructions: *You have been diagnosed with atypical chest pain *What to do: At this time please follow-up with her primary care providers. Evaluation in the emergency department did not show anything specific. *Continue to take medications as directed *Follow up with your primary care provider in 2-3 days or call [phone] *Return to ER if you should have increasing chest pain palpitations shortness of breath or any new, worsening or concerning symptoms Prescriptions: No Action nystatin 100,000 unit/gram Powder 1 applic TOPICAL BID Rx Instructions: right groin rash until resolve, breast escitalopram oxalate 20 mg tablet 20 mg PO DAILY Patient Comments: TK 1 T PO QD potassium chloride 10 mEq Tablet Extended Release 20 meq PO BID omeprazole 20 mg capsule,delayed release(DR/EC) 20 mg PO DAILY Patient Comments: TK 1 C PO QD polyethylene glycol 3350 17 gram Powder In Packet 17 gm PO DAILY Qty: 1 0RF furosemide 20 mg Tablet 80 mg PO DAILY oxycodone 5 mg tablet 5 - 10 mg PO Q4H PRN (Reason: pain) Qty: 50 0RF Rx Instructions: exempt postop rosuvastatin 40 mg Tablet 20 mg PO DAILY cholecalciferol (vitamin D3) [Vitamin D3] 2,000 unit Tablet 2,000 unit PO DAILY Xarelto 20 mg Tablet 20 mg PO DAILY acetaminophen 500 mg tablet 1,000 mg PO TID calcium carbonate [Oyster Shell Calcium 500] 500 mg calcium (1,250 mg) tablet 500 mg PO BID gabapentin [Neurontin] 800 mg tablet 800 mg PO TID ferrous sulfate [FeroSul] 325 mg (65 mg iron) tablet 325 mg PO SEEINSTR Rx Instructions: Take one tablet every Monday, Monday, and Monday. docusate sodium 100 mg capsule 100 mg PO QPM digoxin 125 mcg (0.125 mg) tablet 125 mcg PO QAM Rx Instructions: Hold if heart rate is less <60 bpm albuterol sulfate 90 mcg/actuation HFA aerosol inhaler 2 puff INHALATION TID ondansetron 4 mg tablet,disintegrating 4 mg PO Q4H PRN (Reason: Nausea) fluticasone propionate 50 mcg/actuation spray,suspension 50 mcg INTRANASAL QAM diltiazem HCl 300 mg capsule,extended release 24hr 300 mg PO DAILY Qty: 90 0RF Referrals: Pooja Root MD [Primary Care Provider] - Stand Alone Forms: Patient Portal/API
== END 2022-09-16 21:25 | disposition home or self-care (01) ==
PROVIDERS: Emergency Medicine; Emergency Provider Emergency Medicine; Family Provider Nurse Practitioner Family; PCP Internal Medicine
DX: R07.89 Other chest pain (principal)
CPT/HCPCS: 36415; 71045; 80053; 81003; 82550; 83690; 83735; 83880; 84484; 85025; 85610; 85730; 87633; 93005; 99283; 99284

== ENCOUNTER → 2022-11-02 07:17 | Outpatient (ROUT) | payer OTHER, SELFPAY ==
[2022-04-19 15:55] VITALS: BMI 30.4
[2022-11-02 08:37] LABS: BUN Creatinine Ratio 9.6 (6-22); Blood Urea Nitrogen 10 mg/dL (7-17); Calcium 9.6 mg/dL (8.4-10.2); Carbon Dioxide 29 mmol/L (22-32); Chloride 99 mmol/L (98-107); Estimated Glomerular Filt Rate 53 mL/min (>60); Glucose 142 mg/dL (80-110); HEMOLYSIS < 15 (0-50); Potassium 3.6 mmol/L (3.4-5.1); Sodium 137 mmol/L (137-145)
[2022-11-02 08:41] LABS: Digoxin < 0.4 ng/mL (0.8-2.0)
== END ==
PROVIDERS: Family Provider Nurse Practitioner Family; PCP Internal Medicine; Visit Provider Nurse Practitioner Family
DX: I48.91 Unspecified atrial fibrillation (principal); I50.9 Heart failure, unspecified
CPT/HCPCS: 36415; 80048; 80162

== ENCOUNTER → 2022-12-07 14:05 | Outpatient (ROUT) | payer OTHER, SELFPAY ==
[2022-04-19 15:55] VITALS: BMI 30.4
[2022-12-07 14:13] LABS: Appearance Urine UA CLEAR; Bilirubin Urine UA NEGATIVE (NEGATIVE); Color Urine UA YELLOW; Glucose Urine UA NEGATIVE (Negative); Ketones Urine UA NEGATIVE (NEGATIVE); Leukocyte Esterase Urine UA NEGATIVE (NEGATIVE); Nitrite Urine UA NEGATIVE (Negative); Occult Blood Urine UA NEGATIVE (Negative); Protein Urine UA NEGATIVE (Negative); Specific Gravity Urine UA 1.015 (1.000-1.035); Urobilinogen Urine UA 0.2 E.U./dL (0.2)
[2022-12-07 14:15] LABS: pH Urine UA 5.5 (4.5-8.0)
[2022-12-07 14:21] LABS: Bacteria Urine None Seen; Culture Indicated Urine Cult Not Indicated; Hyaline Casts Urine 0-1/LPF; RBC Urine None Seen (0-5/HPF); Squamous Epithelial Cell Urine 1-5 /HPF (0-5/HPF); WBC Urine None Seen (0-5/HPF)
== END ==
PROVIDERS: Family Provider Nurse Practitioner Family; PCP Internal Medicine; Visit Provider Nurse Practitioner Family
DX: R35.0 Frequency of micturition (principal)
CPT/HCPCS: 81001

== ENCOUNTER 2022-12-12 15:56 | Emergency (ER) | payer OTHER, SELFPAY ==
[2022-04-19 15:55] VITALS: BMI 30.4
[2022-12-12] VITALS (23 sets, daily range): BP systolic 148–174; BP diastolic 64–96; PULSE 42–63; RESP 10–22; TEMP 36.7; O2SAT 93–100
--- NOTE | 2022-12-12 16:05 | DI.CT.S_ITS ---
PROCEDURE: CT HEAD/BRAIN WO CON INDICATIONS: altered mental status TECHNIQUE: Noncontrast 4.5 mm thick angled axial sections acquired from the foramen magnum to the vertex, with coronal and sagittal reformats. For radiation dose reduction, the following was used: automated exposure control, adjustment of mA and/or kV according to patient size. COMPARISON: [facility], CT, CT HEAD/BRAIN WO CON, 01/20/2022, 14:11. FINDINGS: Image quality: Excellent. CSF spaces: Basal cisterns are patent. No extra-axial fluid collections. The ventricles are symmetric in size and shape. Brain: No intracranial bleeds or masses. There is cerebral volume loss for age, with resultant ventricular and sulcal prominence. There are periventricular and deep white matter chronic small vessel ischemic changes. There is intracranial internal carotid artery atherosclerosis. Skull and face: Calvarium and visualized facial bones appear intact, without suspicious lesions. Sinuses: Visualized sinuses and mastoids are clear. IMPRESSION: Noncontrast head CT within normal limits, without a cause of altered mental status identified. No significant change from the prior. Dictated by: Wilian Rivas M.D. on 12/12/2022 at 15:31 Approved by: Wilian Rivas M.D. on 12/12/2022 at 15:32
[2022-12-12 16:19] LABS: Add Manual Diff / Slide Review NO; Basophils Absolute Auto 100 /uL (0-100); Basophils Percent Auto 0.9 % (0-2); Eosinophils Absolute Auto 200 /uL (0-450); Eosinophils Percent Auto 1.8 % (2-4); Hematocrit 38.3 % (36-46); Hemoglobin 13.4 g/dL (12.0-16.0); Lymphocytes Absolute Auto 2100 /uL (1100-4500); Lymphocytes Percent Auto 25.5 % (25-40); Mean Corpuscular HGB Conc 35.1 % (30-36); Mean Corpuscular Hemoglobin 31.8 PG (26-34); Mean Corpuscular Volume 90.5 fL (80-100); Monocytes Absolute Auto 500 /uL (0-900); Monocytes Percent Auto 6.7 % (3-14); Neutrophils Absolute Auto 5300 /uL (1500-7000); Neutrophils Percent Auto 65.1 % (50-75); Platelet Count 234 X10^3/uL (150-400); Red Blood Cell Count 4.23 X10^6/uL (4.0-5.2); Red Cell Distribution Width 13.5 % (11.6-14.8); White Blood Cell Count 8.2 X10^3/uL (4.5-11.0)
[2022-12-12 16:20] LABS: INR 1.9 (0.9-1.3); Prothrombin Time 21.5 SECONDS (10.1-12.7)
[2022-12-12 16:23] LABS: PTT Partial Thromboplastin Tim 39 SECONDS (26-36)
[2022-12-12 16:25] LABS: Acetaminophen 12 ug/mL (10-30); Alanine Aminotransferase 16 IU/L (<35); Albumin 4.2 g/dL (3.5-5.0); Albumin Globulin Ratio 1.3 (1.0-2.8); Alkaline Phosphatase 55 U/L (38-126); Ammonia (NH3) 29 umol/L (9-30); Aspartate Aminotransferase 25 IU/L (14-36); BUN Creatinine Ratio 10.2 (6-22); Bilirubin Total 0.6 mg/dL (0.2-1.3); Blood Urea Nitrogen 10 mg/dL (7-17); Calcium 10.3 mg/dL (8.4-10.2); Carbon Dioxide 29 mmol/L (22-32); Chloride 100 mmol/L (98-107); Estimated Glomerular Filt Rate 57 mL/min (>60); Ethanol (ETOH) < 10 mg/dL; Globulin 3.3 g/dL (1.7-4.1); Glucose 182 mg/dL (80-110); HEMOLYSIS 44 (0-50); Lipase 31 U/L (23-300); Potassium 4.4 mmol/L (3.4-5.1); Salicylate < 1.0 mg/dL (<20); Sodium 136 mmol/L (137-145); Total Protein 7.5 g/dL (6.3-8.2)
[2022-12-12 16:26] LABS: Lactate (Lactic Acid) 1.4 mmol/L (0.7-2.1)
--- NOTE | 2022-12-12 16:28 | ED_ITS ---
HPI - General Adult <Tony Wakefield DO - Last Filed: 12/12/22 18:21> General Chief complaint: Altered Mental Status Stated complaint: confused Time Seen by Provider: 12/12/22 15:58 Source: patient and EMS Mode of arrival: EMS Limitations: altered mental status History of Present Illness HPI narrative: 87-year-old female who is a DNR with limited interventions was sent from her living facility for evaluation of altered mental status. Per their report the patient is normally alert and oriented and ambulatory. Apparently for the past 24-48 hours she is had a decline in her mental status. Apparently last evening the patient tried to leave the facility which is very uncharacteristic for her. There has not been any reported fevers. Here in the emergency department patient states she just generally does not feel very well in his having abdominal pain. She denies chest pain. It was difficult for her to give any other review of systems. She does know that she is in the hospital and she does know her date but does not know what year it is. Related Data Home Medications Medication Instructions Recorded Confirmed furosemide 20 mg tablet 80 mg PO DAILY 12/07/17 12/12/22 escitalopram oxalate 20 mg tablet 20 mg PO DAILY 10/10/18 12/12/22 nystatin 100,000 unit/gram topical 1 applic topical BID 10/10/18 12/12/22 powder omeprazole 20 mg capsule,delayed 20 mg PO DAILY 10/10/18 12/12/22 release potassium chloride 10 mEq 20 meq PO BID 10/10/18 12/12/22 tablet,extended release rivaroxaban 20 mg tablet (Xarelto) 20 mg PO DAILY 01/09/19 12/12/22 rosuvastatin 40 mg tablet 20 mg PO DAILY 01/09/19 12/12/22 acetaminophen 500 mg tablet 1,000 mg PO TID 04/19/22 12/12/22 albuterol sulfate 90 mcg/actuation 2 puff inhalation TID 04/19/22 12/12/22 aerosol inhaler calcium carbonate 500 mg calcium 500 mg PO BID 04/19/22 12/12/22 (1,250 mg) tablet (Oyster Shell Calcium 500) docusate sodium 100 mg capsule 200 mg PO QPM 04/19/22 12/12/22 ferrous sulfate 325 mg (65 mg 325 mg PO SEEINSTR 04/19/22 12/12/22 iron) tablet (FeroSul) fluticasone propionate 50 50 mcg intranasal QAM 04/19/22 12/12/22 mcg/actuation nasal spray,suspension gabapentin 800 mg tablet 800 mg PO TID 04/19/22 12/12/22 (Neurontin) ondansetron 4 mg disintegrating 4 mg PO Q4H PRN Nausea 04/19/22 12/12/22 tablet camphor-methyl salicylate-menthol 1 patch topical DAILY PRN Back Pain 12/12/22 12/12/22 topical patch cholecalciferol (vitamin D3) 25 25 mcg PO DAILY 12/12/22 12/12/22 mcg (1,000 unit) tablet (Vitamin D3) cholecalciferol (vitamin D3) 25 25 mcg PO DAILY 12/12/22 12/12/22 mcg (1,000 unit) tablet (Vitamin D3) digoxin 250 mcg (0.25 mg) tablet 500 mcg PO QAM 12/12/22 12/12/22 isosorbide mononitrate 30 mg 30 mg PO DAILY 12/12/22 12/12/22 tablet,extended release 24 hr oxycodone 5 mg tablet 5 mg PO BID 12/12/22 12/12/22 oxycodone 5 mg tablet 5 mg PO Q6HR PRN Pain (Scale Score 12/12/22 12/12/22 7-10) polyethylene glycol 3350 17 gram 17 gm PO BID 12/12/22 12/12/22 oral powder packet Previous Rx's Medication Instructions Recorded diltiazem HCl 300 mg 300 mg PO DAILY #90 caps 04/20/22 capsule,extended release 24 hr digoxin 250 mcg (0.25 mg) tablet 250 mcg PO DAILY #30 tabs 12/12/22 Allergies Allergy/AdvReac Type Severity Reaction Status Date / Time Sulfa (Sulfonamide Allergy Intermediate Rash Verified 12/12/22 20:16 Antibiotics) Review of Systems <Tony Wakefield DO - Last Filed: 12/12/22 18:21> Review of Systems Narrative: Very limited given her altered mental status Patient History <Tony Wakefield DO - Last Filed: 12/12/22 18:21> Medical History (Updated 12/12/22 @ 20:24 by Estrellita Walker MD) Chronic pain Dementia Depression GERD (gastroesophageal reflux disease) Herpes encephalitis History of lumbar puncture (08/29/18) Hyperlipidemia Hypertension Hypoxia (10/10/18) Impaired fasting glucose Pulmonary fibrosis Stroke Surgical History History of ankle surgery (10/11/18) Social History details: two years ago number of children: 2 household members: none lives independently: Yes caregiver/support person: Yes housing: apartment other: Denies alcohol drinking or cigarette smoking. Her son of overdose 1 w Smoking Status: Former smoker alcohol intake: current Smoking Status: Former smoker alcohol intake frequency: holidays/special occasions only Substance Use Type: does not use Exam <Tony Wakefield DO - Last Filed: 12/12/22 18:21> Initial Vital Signs Initial Vital Signs: Vital Signs Temperature 98.0 F 12/12/22 16:07 Pulse Rate 45 L 12/12/22 16:07 Respiratory Rate 16 12/12/22 16:07 Blood Pressure 163/96 H 12/12/22 16:07 Pulse Oximetry 100 12/12/22 16:07 Oxygen Delivery Method Room Air 12/12/22 16:07 Const General: cooperative and No ill appearing HENUT Head: normal to inspection and normocephalic Resp Effort & Inspection: normal respiratory effort Auscultation: clear to auscultation bilaterally Cardio Rate: bradycardic Rhythm: regular rhythm GI Inspection: normal to inspection Palpation: No firm, No guarding and tender (Diffuse) Skin General: no rashes or lesions noted Neuro General: patient alert, patient awake and moves all extremities Other: Alert to person and place her birthday but does not know the year in the date. Does not specifically know why she is here Extrem Other: No gross deformities. <Estrellita Walker MD - Last Filed: 12/12/22 20:25> Initial Vital Signs Initial Vital Signs: Vital Signs Temperature 98.0 F 12/12/22 16:07 Pulse Rate 45 L 12/12/22 16:07 Respiratory Rate 16 12/12/22 16:07 Blood Pressure 163/96 H 12/12/22 16:07 Pulse Oximetry 100 12/12/22 16:07 Oxygen Delivery Method Room Air 12/12/22 16:07 Course <Tony Wakefield DO - Last Filed: 12/12/22 18:21> Orders Ordered: ED Orders 12/12/22 15:58 Acetaminophen Stat Ammonia (NH3) Stat Complete Blood Count AUTO DIFF Stat Comprehensive Metabolic Panel Stat Digoxin Stat Ethanol (ETOH) Stat Lactate (Lactic Acid) Stat Lipase Stat PTT Partial Thromboplastin Raji Stat Procalcitonin Stat Prothrombin Time INR Stat Salicylate Stat 12/12/22 16:05 CT head/brain wo con Stat EKG-12 Lead Stat 12/12/22 17:01 US abdomen limited Stat 12/12/22 18:25 Urinalysis and Microscopic Stat Urine Culture Stat Urine Drug Screen, Rapid Stat Vital Signs Vital signs: Vital Signs - 8 hr 12/12/22 16:07 12/12/22 16:49 12/12/22 17:00 Temperature 98.0 F Pulse Rate 45 L 45 L 46 L Respiratory Rate 16 15 14 Blood Pressure 163/96 H Pulse Oximetry 100 94 94 Oxygen Delivery Method Room Air 12/12/22 17:01 12/12/22 17:01 12/12/22 17:15 Temperature Pulse Rate 42 L 43 L Respiratory Rate 14 14 Blood Pressure 148/66 H Pulse Oximetry 94 94 Oxygen Delivery Method 12/12/22 17:30 12/12/22 17:31 12/12/22 17:31 Temperature Pulse Rate 47 L 48 L Respiratory Rate 10 L 20 Blood Pressure 150/65 H Pulse Oximetry 95 Oxygen Delivery Method 12/12/22 17:45 12/12/22 18:00 12/12/22 18:01 Temperature Pulse Rate 54 L 49 L Respiratory Rate 21 14 Blood Pressure 154/64 H Pulse Oximetry Oxygen Delivery Method 12/12/22 18:01 12/12/22 18:15 12/12/22 18:30 Temperature Pulse Rate 43 L 53 L 52 L Respiratory Rate 15 18 13 Blood Pressure Pulse Oximetry Oxygen Delivery Method 12/12/22 18:31 12/12/22 18:31 12/12/22 18:45 Temperature Pulse Rate 51 L 55 L Respiratory Rate 17 21 Blood Pressure 174/73 H Pulse Oximetry Oxygen Delivery Method 12/12/22 19:00 Temperature Pulse Rate 57 L Respiratory Rate 16 Blood Pressure Pulse Oximetry Oxygen Delivery Method <Estrellita Walker MD - Last Filed: 12/12/22 20:25> Orders Ordered: ED Orders 12/12/22 15:58 Acetaminophen Stat Ammonia (NH3) Stat Complete Blood Count AUTO DIFF Stat Comprehensive Metabolic Panel Stat Digoxin Stat Ethanol (ETOH) Stat Lactate (Lactic Acid) Stat Lipase Stat PTT Partial Thromboplastin Raji Stat Procalcitonin Stat Prothrombin Time INR Stat Salicylate Stat 12/12/22 16:05 CT head/brain wo con Stat EKG-12 Lead Stat 12/12/22 17:01 US abdomen limited Stat 12/12/22 18:25 Urinalysis and Microscopic Stat Urine Culture Stat Urine Drug Screen, Rapid Stat Vital Signs Vital signs: Vital Signs - 8 hr 12/12/22 16:07 12/12/22 16:49 12/12/22 17:00 Temperature 98.0 F Pulse Rate 45 L 45 L 46 L Respiratory Rate 16 15 14 Blood Pressure 163/96 H Pulse Oximetry 100 94 94 Oxygen Delivery Method Room Air 12/12/22 17:01 12/12/22 17:01 12/12/22 17:15 Temperature Pulse Rate 42 L 43 L Respiratory Rate 14 14 Blood Pressure 148/66 H Pulse Oximetry 94 94 Oxygen Delivery Method 12/12/22 17:30 12/12/22 17:31 12/12/22 17:31 Temperature Pulse Rate 47 L 48 L Respiratory Rate 10 L 20 Blood Pressure 150/65 H Pulse Oximetry 95 Oxygen Delivery Method 12/12/22 17:45 12/12/22 18:00 12/12/22 18:01 Temperature Pulse Rate 54 L 49 L Respiratory Rate 21 14 Blood Pressure 154/64 H Pulse Oximetry Oxygen Delivery Method 12/12/22 18:01 12/12/22 18:15 12/12/22 18:30 Temperature Pulse Rate 43 L 53 L 52 L Respiratory Rate 15 18 13 Blood Pressure Pulse Oximetry Oxygen Delivery Method 12/12/22 18:31 12/12/22 18:31 12/12/22 18:45 Temperature Pulse Rate 51 L 55 L Respiratory Rate 17 21 Blood Pressure 174/73 H Pulse Oximetry Oxygen Delivery Method 12/12/22 19:00 Temperature Pulse Rate 57 L Respiratory Rate 16 Blood Pressure Pulse Oximetry Oxygen Delivery Method Medical Decision Making <Tony Wakefield DO - Last Filed: 12/12/22 18:21> Medical Records Medical records reviewed: Yes I reviewed the patient's medical records. Lab Data Lab results reviewed: Yes I reviewed the patient's lab results. 12/12/22 15:58 12/12/22 15:58 Labs: Lab Results 12/12/22 12/12/22 12/12/22 Range/Units 15:58 15:58 15:58 WBC 8.2 (4.5-11.0) X10^3/uL RBC 4.23 (4.0-5.2) X10^6/uL Hgb 13.4 (12.0-16.0) g/dL Hct 38.3 (36-46) % MCV 90.5 (80-100) fL MCH 31.8 (26-34) PG MCHC 35.1 (30-36) % RDW 13.5 (11.6-14.8) % Plt Count 234 (150-400) X10^3/uL Neut % (Auto) 65.1 (50-75) % Lymph % (Auto) 25.5 (25-40) % [place] % (Auto) 6.7 (3-14) % Eos % (Auto) 1.8 L (2-4) % Baso % (Auto) 0.9 (0-2) % Neut # (Auto) 5300 (4911-3817) /uL Lymph # (Auto) 2100 (7167-1618) /uL [place] # (Auto) 500 (0-900) /uL Eos # (Auto) 200 (0-450) /uL Baso # (Auto) 100 (0-100) /uL PT 21.5 H (10.1-12.7) SECONDS INR 1.9 H (0.9-1.3) APTT 39 H (26-36) SECONDS Sodium 136 L (137-145) mmol/L Potassium 4.4 (3.4-5.1) mmol/L Chloride 100 (98-107) mmol/L Carbon Dioxide 29 (22-32) mmol/L BUN 10 (7-17) mg/dL Creatinine 0.98 (0.52-1.04) mg/dL Estimated GFR 57 L (>60) mL/min BUN/Creatinine Ratio 10.2 (6-22) Glucose 182 H (80-110) mg/dL Lactate (0.7-2.1) mmol/L Calcium 10.3 H (8.4-10.2) mg/dL Total Bilirubin 0.6 (0.2-1.3) mg/dL AST 25 (14-36) IU/L ALT 16 (<35) IU/L Alkaline Phosphatase 55 (38-126) U/L Ammonia (9-30) umol/L Total Protein 7.5 (6.3-8.2) g/dL Albumin 4.2 (3.5-5.0) g/dL Globulin 3.3 (1.7-4.1) g/dL Albumin/Globulin Ratio 1.3 (1.0-2.8) Lipase 31 (23-300) U/L Procalcitonin 0.05 (<0.5) ng/mL Urine Color Urine Appearance Urine pH (4.5-8.0) Ur Specific [place] (1.000-1.035) Urine Protein (Negative) Urine Glucose (UA) (Negative) g/dL Urine Ketones (NEGATIVE) Urine Occult Blood (Negative) Urine Nitrate (Negative) Urine Bilirubin (NEGATIVE) Urine Urobilinogen (0.2) E.U./dL Ur Leukocyte Esterase (NEGATIVE) Urine RBC (0-5/HPF) Urine WBC (0-5/HPF) Ur Squamous Epith Cells (0-5/HPF) Ur Transition Epith Cell (0-5/HPF) Urine Bacteria (None) Ur Culture Indicated? Digoxin (0.8-2.0) ng/mL Salicylates (<20) mg/dL U Opiates 300ng/mL cut (Negative) Ur Oxycodone Screen (Negative) Urine Methadone Screen (Negative) Acetaminophen (10-30) ug/mL Ur Barbiturates Screen (Negative) U Tricyclic Antidepress (Negative) Ur Phencyclidine Scrn (Negative) Ur Amphetamines Screen (Negative) U Methamphetamines Scrn (Negative) Ur MDMA Scrn (Ecstasy) (Negative) U Benzodiazepines Scrn (Negative) Urine Cocaine Screen (Negative) U Marijuana (THC) Screen (Negative) Ethyl Alcohol < 10 ( - 10) mg/dL 12/12/22 12/12/22 12/12/22 Range/Units 15:58 15:58 15:58 WBC (4.5-11.0) X10^3/uL RBC (4.0-5.2) X10^6/uL Hgb (12.0-16.0) g/dL Hct (36-46) % MCV (80-100) fL MCH (26-34) PG MCHC (30-36) % RDW (11.6-14.8) % Plt Count (150-400) X10^3/uL Neut % (Auto) (50-75) % Lymph % (Auto) (25-40) % [place] % (Auto) (3-14) % Eos % (Auto) (2-4) % Baso % (Auto) (0-2) % Neut # (Auto) (5309-4377) /uL Lymph # (Auto) (2927-7635) /uL [place] # (Auto) (0-900) /uL Eos # (Auto) (0-450) /uL Baso # (Auto) (0-100) /uL PT (10.1-12.7) SECONDS INR (0.9-1.3) APTT (26-36) SECONDS Sodium (137-145) mmol/L Potassium (3.4-5.1) mmol/L Chloride (98-107) mmol/L Carbon Dioxide (22-32) mmol/L BUN (7-17) mg/dL Creatinine (0.52-1.04) mg/dL Estimated GFR (>60) mL/min BUN/Creatinine Ratio (6-22) Glucose (80-110) mg/dL Lactate 1.4 (0.7-2.1) mmol/L Calcium (8.4-10.2) mg/dL Total Bilirubin (0.2-1.3) mg/dL AST (14-36) IU/L ALT (<35) IU/L Alkaline Phosphatase (38-126) U/L Ammonia 29 (9-30) umol/L Total Protein (6.3-8.2) g/dL Albumin (3.5-5.0) g/dL Globulin (1.7-4.1) g/dL Albumin/Globulin Ratio (1.0-2.8) Lipase (23-300) U/L Procalcitonin (<0.5) ng/mL Urine Color Urine Appearance Urine pH (4.5-8.0) Ur Specific [place] (1.000-1.035) Urine Protein (Negative) Urine Glucose (UA) (Negative) g/dL Urine Ketones (NEGATIVE) Urine Occult Blood (Negative) Urine Nitrate (Negative) Urine Bilirubin (NEGATIVE) Urine Urobilinogen (0.2) E.U./dL Ur Leukocyte Esterase (NEGATIVE) Urine RBC (0-5/HPF) Urine WBC (0-5/HPF) Ur Squamous Epith Cells (0-5/HPF) Ur Transition Epith Cell (0-5/HPF) Urine Bacteria (None) Ur Culture Indicated? Digoxin (0.8-2.0) ng/mL Salicylates < 1.0 (<20) mg/dL U Opiates 300ng/mL cut (Negative) Ur Oxycodone Screen (Negative) Urine Methadone Screen (Negative) Acetaminophen 12 (10-30) ug/mL Ur Barbiturates Screen (Negative) U Tricyclic Antidepress (Negative) Ur Phencyclidine Scrn (Negative) Ur Amphetamines Screen (Negative) U Methamphetamines Scrn (Negative) Ur MDMA Scrn (Ecstasy) (Negative) U Benzodiazepines Scrn (Negative) Urine Cocaine Screen (Negative) U Marijuana (THC) Screen (Negative) Ethyl Alcohol ( - 10) mg/dL 12/12/22 12/12/22 12/12/22 Range/Units 15:58 18:25 18:25 WBC (4.5-11.0) X10^3/uL RBC (4.0-5.2) X10^6/uL Hgb (12.0-16.0) g/dL Hct (36-46) % MCV (80-100) fL MCH (26-34) PG MCHC (30-36) % RDW (11.6-14.8) % Plt Count (150-400) X10^3/uL Neut % (Auto) (50-75) % Lymph % (Auto) (25-40) % [place] % (Auto) (3-14) % Eos % (Auto) (2-4) % Baso % (Auto) (0-2) % Neut # (Auto) (2138-8313) /uL Lymph # (Auto) (8434-1275) /uL [place] # (Auto) (0-900) /uL Eos # (Auto) (0-450) /uL Baso # (Auto) (0-100) /uL PT (10.1-12.7) SECONDS INR (0.9-1.3) APTT (26-36) SECONDS Sodium (137-145) mmol/L Potassium (3.4-5.1) mmol/L Chloride (98-107) mmol/L Carbon Dioxide (22-32) mmol/L BUN (7-17) mg/dL Creatinine (0.52-1.04) mg/dL Estimated GFR (>60) mL/min BUN/Creatinine Ratio (6-22) Glucose (80-110) mg/dL Lactate (0.7-2.1) mmol/L Calcium (8.4-10.2) mg/dL Total Bilirubin (0.2-1.3) mg/dL AST (14-36) IU/L ALT (<35) IU/L Alkaline Phosphatase (38-126) U/L Ammonia (9-30) umol/L Total Protein (6.3-8.2) g/dL Albumin (3.5-5.0) g/dL Globulin (1.7-4.1) g/dL Albumin/Globulin Ratio (1.0-2.8) Lipase (23-300) U/L Procalcitonin (<0.5) ng/mL Urine Color Yellow Urine Appearance Clear Urine pH 6.0 (4.5-8.0) Ur Specific [place] 1.020 (1.000-1.035) Urine Protein Negative (Negative) Urine Glucose (UA) Negative (Negative) g/dL Urine Ketones Negative (NEGATIVE) Urine Occult Blood Negative (Negative) Urine Nitrate Negative (Negative) Urine Bilirubin Negative (NEGATIVE) Urine Urobilinogen 1.0 (0.2) E.U./dL Ur Leukocyte Esterase Negative (NEGATIVE) Urine RBC None seen (0-5/HPF) Urine WBC None seen (0-5/HPF) Ur Squamous Epith Cells None seen (0-5/HPF) Ur Transition Epith Cell 0-1/hpf (0-5/HPF) Urine Bacteria None seen (None) Ur Culture Indicated? Cult not indicated Digoxin 2.1 H (0.8-2.0) ng/mL Salicylates (<20) mg/dL U Opiates 300ng/mL cut Negative (Negative) Ur Oxycodone Screen Positive H (Negative) Urine Methadone Screen Negative (Negative) Acetaminophen (10-30) ug/mL Ur Barbiturates Screen Negative (Negative) U Tricyclic Antidepress Negative (Negative) Ur Phencyclidine Scrn Negative (Negative) Ur Amphetamines Screen Negative (Negative) U Methamphetamines Scrn Negative (Negative) Ur MDMA Scrn (Ecstasy) Negative (Negative) U Benzodiazepines Scrn Negative (Negative) Urine Cocaine Screen Negative (Negative) U Marijuana (THC) Screen Negative (Negative) Ethyl Alcohol ( - 10) mg/dL Imaging Data CT scan - head: Radiologist's Impression: PROCEDURE:? CT HEAD/BRAIN WO CON ? INDICATIONS:? altered mental status ? TECHNIQUE:? Noncontrast 4.5 mm thick angled axial sections acquired from the foramen magnum to the vertex, with coronal and sagittal reformats.? For radiation dose reduction, the following was used:? automated exposure control, adjustment of mA and/or kV according to patient size.? ? COMPARISON:? [facility], CT, CT HEAD/BRAIN WO CON, 01/20/2022, 14:11. ? FINDINGS:? Image quality:? Excellent.? ? CSF spaces:? Basal cisterns are patent.? No extra-axial fluid collections.? The ventricles are symmetric in size and shape.? ? Brain:? No intracranial bleeds or masses.? There is cerebral volume loss for age, with resultant ventricular and sulcal prominence.? There are periventricular and deep white matter chronic small vessel ischemic changes.? There is intracranial internal carotid artery atherosclerosis.? ? Skull and face:? Calvarium and visualized facial bones appear intact, without suspicious lesions.? ? Sinuses:? Visualized sinuses and mastoids are clear.? IMPRESSION:? Noncontrast head CT within normal limits, without a cause of altered mental status identified. ? No significant change from the prior. ECG Data Attestation: I personally reviewed and interpreted this ECG as follows: Interpretation: Atrial fibrillation Ventricular rate of 52 Occasional PVC QRS 84 milliseconds To jealous affect Nonspecific ST T wave changes MDM Narrative Medical decision making narrative: Patient is a DNR/DNI with limited interventions. Has vague complaints. Generalized abdominal pain. Does have digoxin changes on her EKG but no changes consistent with digitoxicity however she is other symptoms potentially consistent with this. Head CT shows no acute pathology. Alcohol levels negative. Still waiting for urinalysis. I did discuss the case with Dr. Curry hospitalist on-call who asked for a ultrasound of her abdomen and her urine result before accepting. Care turned over to Dr. Walker to follow-up and disposition. <Estrellita Walker MD - Last Filed: 12/12/22 20:25> Lab Data Labs: Lab Results 12/12/22 12/12/22 12/12/22 Range/Units 15:58 15:58 15:58 WBC 8.2 (4.5-11.0) X10^3/uL RBC 4.23 (4.0-5.2) X10^6/uL Hgb 13.4 (12.0-16.0) g/dL Hct 38.3 (36-46) % MCV 90.5 (80-100) fL MCH 31.8 (26-34) PG MCHC 35.1 (30-36) % RDW 13.5 (11.6-14.8) % Plt Count 234 (150-400) X10^3/uL Neut % (Auto) 65.1 (50-75) % Lymph % (Auto) 25.5 (25-40) % [place] % (Auto) 6.7 (3-14) % Eos % (Auto) 1.8 L (2-4) % Baso % (Auto) 0.9 (0-2) % Neut # (Auto) 5300 (6604-0805) /uL Lymph # (Auto) 2100 (6069-5836) /uL [place] # (Auto) 500 (0-900) /uL Eos # (Auto) 200 (0-450) /uL Baso # (Auto) 100 (0-100) /uL PT 21.5 H (10.1-12.7) SECONDS INR 1.9 H (0.9-1.3) APTT 39 H (26-36) SECONDS Sodium 136 L (137-145) mmol/L Potassium 4.4 (3.4-5.1) mmol/L Chloride 100 (98-107) mmol/L Carbon Dioxide 29 (22-32) mmol/L BUN 10 (7-17) mg/dL Creatinine 0.98 (0.52-1.04) mg/dL Estimated GFR 57 L (>60) mL/min BUN/Creatinine Ratio 10.2 (6-22) Glucose 182 H (80-110) mg/dL Lactate (0.7-2.1) mmol/L Calcium 10.3 H (8.4-10.2) mg/dL Total Bilirubin 0.6 (0.2-1.3) mg/dL AST 25 (14-36) IU/L ALT 16 (<35) IU/L Alkaline Phosphatase 55 (38-126) U/L Ammonia (9-30) umol/L Total Protein 7.5 (6.3-8.2) g/dL Albumin 4.2 (3.5-5.0) g/dL Globulin 3.3 (1.7-4.1) g/dL Albumin/Globulin Ratio 1.3 (1.0-2.8) Lipase 31 (23-300) U/L Procalcitonin 0.05 (<0.5) ng/mL Urine Color Urine Appearance Urine pH (4.5-8.0) Ur Specific [place] (1.000-1.035) Urine Protein (Negative) Urine Glucose (UA) (Negative) g/dL Urine Ketones (NEGATIVE) Urine Occult Blood (Negative) Urine Nitrate (Negative) Urine Bilirubin (NEGATIVE) Urine Urobilinogen (0.2) E.U./dL Ur Leukocyte Esterase (NEGATIVE) Urine RBC (0-5/HPF) Urine WBC (0-5/HPF) Ur Squamous Epith Cells (0-5/HPF) Ur Transition Epith Cell (0-5/HPF) Urine Bacteria (None) Ur Culture Indicated? Digoxin (0.8-2.0) ng/mL Salicylates (<20) mg/dL U Opiates 300ng/mL cut (Negative) Ur Oxycodone Screen (Negative) Urine Methadone Screen (Negative) Acetaminophen (10-30) ug/mL Ur Barbiturates Screen (Negative) U Tricyclic Antidepress (Negative) Ur Phencyclidine Scrn (Negative) Ur Amphetamines Screen (Negative) U Methamphetamines Scrn (Negative) Ur MDMA Scrn (Ecstasy) (Negative) U Benzodiazepines Scrn (Negative) Urine Cocaine Screen (Negative) U Marijuana (THC) Screen (Negative) Ethyl Alcohol < 10 ( - 10) mg/dL 12/12/22 12/12/22 12/12/22 Range/Units 15:58 15:58 15:58 WBC (4.5-11.0) X10^3/uL RBC (4.0-5.2) X10^6/uL Hgb (12.0-16.0) g/dL Hct (36-46) % MCV (80-100) fL MCH (26-34) PG MCHC (30-36) % RDW (11.6-14.8) % Plt Count (150-400) X10^3/uL Neut % (Auto) (50-75) % Lymph % (Auto) (25-40) % [place] % (Auto) (3-14) % Eos % (Auto) (2-4) % Baso % (Auto) (0-2) % Neut # (Auto) (8871-9313) /uL Lymph # (Auto) (6774-9137) /uL [place] # (Auto) (0-900) /uL Eos # (Auto) (0-450) /uL Baso # (Auto) (0-100) /uL PT (10.1-12.7) SECONDS INR (0.9-1.3) APTT (26-36) SECONDS Sodium (137-145) mmol/L Potassium (3.4-5.1) mmol/L Chloride (98-107) mmol/L Carbon Dioxide (22-32) mmol/L BUN (7-17) mg/dL Creatinine (0.52-1.04) mg/dL Estimated GFR (>60) mL/min BUN/Creatinine Ratio (6-22) Glucose (80-110) mg/dL Lactate 1.4 (0.7-2.1) mmol/L Calcium (8.4-10.2) mg/dL Total Bilirubin (0.2-1.3) mg/dL AST (14-36) IU/L ALT (<35) IU/L Alkaline Phosphatase (38-126) U/L Ammonia 29 (9-30) umol/L Total Protein (6.3-8.2) g/dL Albumin (3.5-5.0) g/dL Globulin (1.7-4.1) g/dL Albumin/Globulin Ratio (1.0-2.8) Lipase (23-300) U/L Procalcitonin (<0.5) ng/mL Urine Color Urine Appearance Urine pH (4.5-8.0) Ur Specific [place] (1.000-1.035) Urine Protein (Negative) Urine Glucose (UA) (Negative) g/dL Urine Ketones (NEGATIVE) Urine Occult Blood (Negative) Urine Nitrate (Negative) Urine Bilirubin (NEGATIVE) Urine Urobilinogen (0.2) E.U./dL Ur Leukocyte Esterase (NEGATIVE) Urine RBC (0-5/HPF) Urine WBC (0-5/HPF) Ur Squamous Epith Cells (0-5/HPF) Ur Transition Epith Cell (0-5/HPF) Urine Bacteria (None) Ur Culture Indicated? Digoxin (0.8-2.0) ng/mL Salicylates < 1.0 (<20) mg/dL U Opiates 300ng/mL cut (Negative) Ur Oxycodone Screen (Negative) Urine Methadone Screen (Negative) Acetaminophen 12 (10-30) ug/mL Ur Barbiturates Screen (Negative) U Tricyclic Antidepress (Negative) Ur Phencyclidine Scrn (Negative) Ur Amphetamines Screen (Negative) U Methamphetamines Scrn (Negative) Ur MDMA Scrn (Ecstasy) (Negative) U Benzodiazepines Scrn (Negative) Urine Cocaine Screen (Negative) U Marijuana (THC) Screen (Negative) Ethyl Alcohol ( - 10) mg/dL 12/12/22 12/12/22 12/12/22 Range/Units 15:58 18:25 18:25 WBC (4.5-11.0) X10^3/uL RBC (4.0-5.2) X10^6/uL Hgb (12.0-16.0) g/dL Hct (36-46) % MCV (80-100) fL MCH (26-34) PG MCHC (30-36) % RDW (11.6-14.8) % Plt Count (150-400) X10^3/uL Neut % (Auto) (50-75) % Lymph % (Auto) (25-40) % [place] % (Auto) (3-14) % Eos % (Auto) (2-4) % Baso % (Auto) (0-2) % Neut # (Auto) (1844-6118) /uL Lymph # (Auto) (1273-7857) /uL [place] # (Auto) (0-900) /uL Eos # (Auto) (0-450) /uL Baso # (Auto) (0-100) /uL PT (10.1-12.7) SECONDS INR (0.9-1.3) APTT (26-36) SECONDS Sodium (137-145) mmol/L Potassium (3.4-5.1) mmol/L Chloride (98-107) mmol/L Carbon Dioxide (22-32) mmol/L BUN (7-17) mg/dL Creatinine (0.52-1.04) mg/dL Estimated GFR (>60) mL/min BUN/Creatinine Ratio (6-22) Glucose (80-110) mg/dL Lactate (0.7-2.1) mmol/L Calcium (8.4-10.2) mg/dL Total Bilirubin (0.2-1.3) mg/dL AST (14-36) IU/L ALT (<35) IU/L Alkaline Phosphatase (38-126) U/L Ammonia (9-30) umol/L Total Protein (6.3-8.2) g/dL Albumin (3.5-5.0) g/dL Globulin (1.7-4.1) g/dL Albumin/Globulin Ratio (1.0-2.8) Lipase (23-300) U/L Procalcitonin (<0.5) ng/mL Urine Color Yellow Urine Appearance Clear Urine pH 6.0 (4.5-8.0) Ur Specific [place] 1.020 (1.000-1.035) Urine Protein Negative (Negative) Urine Glucose (UA) Negative (Negative) g/dL Urine Ketones Negative (NEGATIVE) Urine Occult Blood Negative (Negative) Urine Nitrate Negative (Negative) Urine Bilirubin Negative (NEGATIVE) Urine Urobilinogen 1.0 (0.2) E.U./dL Ur Leukocyte Esterase Negative (NEGATIVE) Urine RBC None seen (0-5/HPF) Urine WBC None seen (0-5/HPF) Ur Squamous Epith Cells None seen (0-5/HPF) Ur Transition Epith Cell 0-1/hpf (0-5/HPF) Urine Bacteria None seen (None) Ur Culture Indicated? Cult not indicated Digoxin 2.1 H (0.8-2.0) ng/mL Salicylates (<20) mg/dL U Opiates 300ng/mL cut Negative (Negative) Ur Oxycodone Screen Positive H (Negative) Urine Methadone Screen Negative (Negative) Acetaminophen (10-30) ug/mL Ur Barbiturates Screen Negative (Negative) U Tricyclic Antidepress Negative (Negative) Ur Phencyclidine Scrn Negative (Negative) Ur Amphetamines Screen Negative (Negative) U Methamphetamines Scrn Negative (Negative) Ur MDMA Scrn (Ecstasy) Negative (Negative) U Benzodiazepines Scrn Negative (Negative) Urine Cocaine Screen Negative (Negative) U Marijuana (THC) Screen Negative (Negative) Ethyl Alcohol ( - 10) mg/dL MDM Narrative Medical decision making narrative: Patient is a DNR/DNI with limited interventions. Has vague complaints. Generalized abdominal pain. Does have digoxin changes on her EKG but no changes consistent with digitoxicity however she is other symptoms potentially consistent with this. Head CT shows no acute pathology. Alcohol levels negative. Still waiting for urinalysis. I did discuss the case with Dr. Curry hospitalist on-call who asked for a ultrasound of her abdomen and her urine result before accepting. Care turned over to Dr. Walker to follow-up and disposition. Care is assumed. Patient is independently evaluated and examined. Chart is reviewed labs reviewed. Patient had been sent to the emergency department from her assisted living facility with concerns for altered mental status. Her mental status has completely cleared at this point She appears to have been given an additional dose of oxycodone this afternoon and her digoxin level was slightly elevated. Both of these could have contributed to the confusion noted. At this time there is no evidence of infection, sepsis, stroke, acute coronary syndrome, dramatic electrolyte abnormalities or alternate explanation that would require hospitalization, additional imaging or hospital admission. Imaging done includes a head CT as well as an abdominal ultrasound. The head CT was unremarkable. The abdominal ultrasound showed cholelithiasis without significant evidence of cholecystitis. Clinical follow-up demonstrates absolutely no right upper quadrant pain. I believe she is safe to return to her [facility] facility. Will ask that her digoxin be held for December 13 and rather than restarting at 500 mcg a day decreased to 250 mcg, in October she had been at 125 mcg and was found to be slightly low with her dig level and was increased to 500 mg. She is given a prescription for 30 days at the 250 mcg size and will need additional blood drawn follow-up by her primary care physician. Findings and results reviewed with the patient. 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 It may be that your extra dose of oxycodone and slightly elevated digoxin levels contributed to the transient confusion earlier today. At this time there is no evidence of stroke, infection, acute coronary syndrome or alternate explanation that would require hospitalization or further imaging. Imaging done today included a head CT that did not show any acute findings. You had abdominal ultrasound that showed gallstones but no evidence of infection or other significant pathology. Your digoxin level was slightly elevated. It looks like you had been on 125 mcg daily of digoxin in October and currently are on 500 mcg. I am going to ask that you do not take any digoxin on December 13 and then restart at 250 mg a day. Your primary care doctor will need to be notified and they will likely want to recheck blood work in a couple of weeks to make sure that dose is working well for you. In the meantime, you seem to be back to your baseline. I believe discharge home is safe. Please feel free to return if you have worsening symptoms Prescriptions: New digoxin 250 mcg (0.25 mg) tablet 250 mcg PO DAILY Qty: 30 0RF No Action nystatin 100,000 unit/gram Powder 1 applic TOPICAL BID Rx Instructions: right groin rash until resolve, breast escitalopram oxalate 20 mg tablet 20 mg PO DAILY Patient Comments: TK 1 T PO QD potassium chloride 10 mEq Tablet Extended Release 20 meq PO BID omeprazole 20 mg capsule,delayed release(DR/EC) 20 mg PO DAILY Patient Comments: TK 1 C PO QD isosorbide mononitrate 30 mg tablet extended release 24 hr 30 mg PO DAILY digoxin 250 mcg (0.25 mg) tablet 500 mcg PO QAM Patient Comments: recent increase 11/17/22 Salonpas Adhesive Patch,Medicated 1 patch TOPICAL DAILY PRN (Reason: Back Pain) Patient Comments: [NO ORIGINAL SIG] Rx Instructions: to low back, on for 12 hours, off x 12 hours cholecalciferol (vitamin D3) [Vitamin D3] 25 mcg (1,000 unit) tablet 25 mcg PO DAILY oxycodone 5 mg tablet 5 mg PO Q6HR PRN (Reason: Pain (Scale Score 7-10)) cholecalciferol (vitamin D3) [Vitamin D3] 25 mcg (1,000 unit) tablet 25 mcg PO DAILY polyethylene glycol 3350 17 gram powder in packet 17 gm PO BID oxycodone 5 mg tablet 5 mg PO BID furosemide 20 mg Tablet 80 mg PO DAILY rosuvastatin 40 mg Tablet 20 mg PO DAILY Xarelto 20 mg Tablet 20 mg PO DAILY acetaminophen 500 mg tablet 1,000 mg PO TID calcium carbonate [Oyster Shell Calcium 500] 500 mg calcium (1,250 mg) tablet 500 mg PO BID gabapentin [Neurontin] 800 mg tablet 800 mg PO TID ferrous sulfate [FeroSul] 325 mg (65 mg iron) tablet 325 mg PO SEEINSTR Rx Instructions: Take one tablet every Monday, Monday, and Monday. docusate sodium 100 mg capsule 200 mg PO QPM albuterol sulfate 90 mcg/actuation HFA aerosol inhaler 2 puff INHALATION TID ondansetron 4 mg tablet,disintegrating 4 mg PO Q4H PRN (Reason: Nausea) fluticasone propionate 50 mcg/actuation spray,suspension 50 mcg INTRANASAL QAM diltiazem HCl 300 mg capsule,extended release 24hr 300 mg PO DAILY Qty: 90 0RF Referrals: Pooja Root MD [Primary Care Provider] - Stand Alone Forms: Patient Portal/API
[2022-12-12 16:41] LABS: Procalcitonin 0.05 ng/mL (<0.5)
[2022-12-12 16:43] LABS: Digoxin 2.1 ng/mL (0.8-2.0)
--- NOTE | 2022-12-12 17:01 | DI.US.S_ITS ---
PROCEDURE: US ABDOMEN LIMITED INDICATIONS: PAIN TECHNIQUE: Real-time focused scanning was performed of the abdomen, with image documentation. COMPARISON: None. FINDINGS: Liver is borderline size at 17.3 cm. Extensive shadowing is seen related to bowel gas and body habitus as well as overlying ribs, which obscures the majority of the liver parenchyma. Multiple gallstones are seen in the gallbladder, the largest of which measures 1.2 cm. Gallbladder wall measures 2.6 mm in thickness. No pericholecystic fluid. Sonographic Maya sign is negative. No significant intrahepatic or extrahepatic biliary ductal dilatation. Common bile duct measures 7 mm in diameter. The pancreas is not well visualized due to overlying bowel gas. IMPRESSION: Cholelithiasis and borderline wall thickening. No pericholecystic fluid. Sonographic Maya sign is negative. Recommend correlation with clinical and laboratory findings to exclude acute cholecystitis. Approved by: Dave Rea M.D. on 12/12/2022 at 18:36
[2022-12-12 18:37] LABS: Appearance Urine UA CLEAR; Bilirubin Urine UA NEGATIVE (NEGATIVE); Color Urine UA YELLOW; Glucose Urine UA NEGATIVE (Negative); Ketones Urine UA NEGATIVE (NEGATIVE); Leukocyte Esterase Urine UA NEGATIVE (NEGATIVE); Nitrite Urine UA NEGATIVE (Negative); Occult Blood Urine UA NEGATIVE (Negative); Protein Urine UA NEGATIVE (Negative)
[2022-12-12 18:43] LABS: UR Morphine/Opiate cutoff 300 Negative (Negative); Ur Creatinine Normal (Normal); Ur Specific Gravity Normal (Normal); Urine Amphetamines Negative (Negative); Urine Barbiturates Negative (Negative); Urine Benzodiazepines Negative (Negative); Urine Cocaine Negative (Negative); Urine MDMA Negative (Negative); Urine Methadone Negative (Negative); Urine Methamphetamines Negative (Negative); Urine Phencyclidine Negative (Negative); Urine Tetrahydrocannabinol Negative (Negative); Urine Tricyclic Antidepressant Negative (Negative); Urine pH Normal (Normal)
[2022-12-12 18:44] LABS: Urine Oxycodone Positive (Negative)
[2022-12-12 18:50] LABS: Bacteria Urine None Seen; RBC Urine None Seen (0-5/HPF); Squamous Epithelial Cell Urine None Seen (0-5/HPF); Transitional Epi Cells Urine 0-1/HPF (0-5/HPF); WBC Urine None Seen (0-5/HPF)
[2022-12-12 18:51] LABS: Culture Indicated Urine Cult Not Indicated
== END 2022-12-12 20:58 | disposition home or self-care (01) ==
PROVIDERS: Emergency Medicine; Emergency Provider Emergency Medicine; Family Provider Nurse Practitioner Family; PCP Internal Medicine
DX: R41.82 Altered mental status, unspecified (principal); R10.84 Generalized abdominal pain; R78.89 Finding of other specified substances, not normally found in blood; Z79.01 Long term (current) use of anticoagulants; Z79.899 Other long term (current) drug therapy
CPT/HCPCS: 36415; 51701; 70450; 76705; 80053; 80162; 80305; 80320; 80329; 81001; 82140; 83605; 83690; 84145; 85025; 85610; 85730; 87086; 93005; 99284; G0480

== ENCOUNTER 2022-12-16 16:27 | Emergency (ER) | payer OTHER, SELFPAY ==
[2022-04-19 15:55] VITALS: BMI 30.4
[2022-12-16] VITALS (12 sets, daily range): BP systolic 145–192; BP diastolic 65–82; PULSE 45–68; O2SAT 96–99; BMI 29.5
--- NOTE | 2022-12-16 16:38 | DI.CT.S_ITS ---
PROCEDURE: CT HEAD/BRAIN WO CON INDICATIONS: confusion TECHNIQUE: Noncontrast 4.5 mm thick angled axial sections acquired from the foramen magnum to the vertex, with coronal and sagittal reformats. For radiation dose reduction, the following was used: automated exposure control, adjustment of mA and/or kV according to patient size. COMPARISON: [facility], CT, CT HEAD/BRAIN WO CON, 12/12/2022, 16:08. FINDINGS: Image quality: Excellent. CSF spaces: Basal cisterns are patent. No extra-axial fluid collections. Ventricles are normal in size and shape. Brain: No midline shift. No intracranial masses or hemorrhage. Wyman-white matter interface is normal. Moderate cerebral and cerebellar volume loss with multifocal white matter chronic ischemic change noted. Atherosclerotic calcification noted associated with cavernous segments of both internal carotid arteries. Skull and face: Calvarium and visualized facial bones are intact, without suspicious lesions. Bilateral intraocular lens replacements noted. Sinuses: Visualized sinuses and mastoids are clear. IMPRESSION: Atrophy and chronic ischemic change without intracranial hemorrhage or mass effect Approved by: Dejuan Holland M.D. on 12/16/2022 at 16:01
[2022-12-16 16:50] LABS: Add Manual Diff / Slide Review NO; Basophils Absolute Auto 100 /uL (0-100); Basophils Percent Auto 0.7 % (0-2); Eosinophils Absolute Auto 100 /uL (0-450); Eosinophils Percent Auto 1.3 % (2-4); Hematocrit 39.4 % (36-46); Hemoglobin 13.5 g/dL (12.0-16.0); Lymphocytes Absolute Auto 2200 /uL (1100-4500); Lymphocytes Percent Auto 21.9 % (25-40); Mean Corpuscular HGB Conc 34.2 % (30-36); Mean Corpuscular Hemoglobin 30.9 PG (26-34); Mean Corpuscular Volume 90.5 fL (80-100); Monocytes Absolute Auto 700 /uL (0-900); Monocytes Percent Auto 7.1 % (3-14); Neutrophils Absolute Auto 6900 /uL (1500-7000); Platelet Count 255 X10^3/uL (150-400); Red Blood Cell Count 4.36 X10^6/uL (4.0-5.2); Red Cell Distribution Width 13.2 % (11.6-14.8)
[2022-12-16 17:00] LABS: COVID19 -Nasal RAPID Negative (Negative)
[2022-12-16 17:03] LABS: Acetaminophen < 10 ug/mL (10-30); Salicylate < 1.0 mg/dL (<20)
[2022-12-16 17:04] LABS: Alanine Aminotransferase 15 IU/L (<35); Albumin 4.5 g/dL (3.5-5.0); Albumin Globulin Ratio 1.4 (1.0-2.8); Alkaline Phosphatase 66 U/L (38-126); Aspartate Aminotransferase 24 IU/L (14-36); BUN Creatinine Ratio 11.7 (6-22); Bilirubin Total 0.6 mg/dL (0.2-1.3); Blood Urea Nitrogen 12 mg/dL (7-17); Calcium 10.3 mg/dL (8.4-10.2); Carbon Dioxide 26 mmol/L (22-32); Chloride 102 mmol/L (98-107); Estimated Glomerular Filt Rate 53 mL/min (>60); Globulin 3.3 g/dL (1.7-4.1); Glucose 137 mg/dL (80-110); HEMOLYSIS < 15 (0-50); Magnesium 2.1 mg/dL (1.6-2.3); Sodium 137 mmol/L (137-145); Total Protein 7.8 g/dL (6.3-8.2)
[2022-12-16 17:19] LABS: Ethanol (ETOH) < 10 mg/dL
[2022-12-16 17:52] LABS: Appearance Urine UA CLEAR; Bilirubin Urine UA NEGATIVE (NEGATIVE); Color Urine UA YELLOW; Glucose Urine UA NEGATIVE (Negative); Ketones Urine UA NEGATIVE (NEGATIVE); Leukocyte Esterase Urine UA TRACE (NEGATIVE); Nitrite Urine UA NEGATIVE (Negative); Occult Blood Urine UA NEGATIVE (Negative); Protein Urine UA NEGATIVE (Negative)
[2022-12-16 18:05] LABS: Digoxin 1.1 ng/mL (0.8-2.0)
[2022-12-16 18:06] LABS: pH Urine UA 5.5 (4.5-8.0)
[2022-12-16 18:20] LABS: Bacteria Urine None Seen; RBC Urine None Seen (0-5/HPF); Squamous Epithelial Cell Urine 0-1 /HPF (0-5/HPF); WBC Urine 0-1/HPF (0-5/HPF)
[2022-12-16 18:21] LABS: Culture Indicated Urine Cult Not Indicated
--- NOTE | 2022-12-16 18:22 | ED.HA ---
HPI - Headache <Eric Chris DO - Last Filed: 12/17/22 07:38> General Chief Complaint: Headache Stated Complaint: increased confusion Time Seen by Provider: 12/16/22 16:35 Mode of arrival: EMS History of Present Illness HPI Narrative: 87-year-old female with history of hypertension, hyperlipidemia, prior stroke, prior herpes encephalitis presents for the 2nd time this week for evaluation of altered mental status. She had been seen earlier in the week and it was thought that perhaps her encephalopathic presentation was due to a slightly elevated digoxin as well as Percocet dosing. The patient was worked up otherwise felt appropriate for discharge. The primary care provider held digoxin and decrease the dose of oxycodone and she returned to her relative baseline which is normally alert and oriented, articulate in ambulatory and today is confused again. Evidence of this is confusion about her prior visit, found wandering in the halls and entering other people's rooms. She denies any trauma or injury. She has no fever or chills. Related Data Home Medications Medication Instructions Recorded Confirmed furosemide 20 mg tablet 80 mg PO DAILY 12/07/17 12/12/22 escitalopram oxalate 20 mg tablet 20 mg PO DAILY 10/10/18 12/12/22 nystatin 100,000 unit/gram topical 1 applic topical BID 10/10/18 12/12/22 powder omeprazole 20 mg capsule,delayed 20 mg PO DAILY 10/10/18 12/12/22 release potassium chloride 10 mEq 20 meq PO BID 10/10/18 12/12/22 tablet,extended release rivaroxaban 20 mg tablet (Xarelto) 20 mg PO DAILY 01/09/19 12/12/22 rosuvastatin 40 mg tablet 20 mg PO DAILY 01/09/19 12/12/22 acetaminophen 500 mg tablet 1,000 mg PO TID 04/19/22 12/12/22 albuterol sulfate 90 mcg/actuation 2 puff inhalation TID 04/19/22 12/12/22 aerosol inhaler calcium carbonate 500 mg calcium 500 mg PO BID 04/19/22 12/12/22 (1,250 mg) tablet (Oyster Shell Calcium 500) docusate sodium 100 mg capsule 200 mg PO QPM 04/19/22 12/12/22 ferrous sulfate 325 mg (65 mg 325 mg PO SEEINSTR 04/19/22 12/12/22 iron) tablet (FeroSul) fluticasone propionate 50 50 mcg intranasal QAM 04/19/22 12/12/22 mcg/actuation nasal spray,suspension gabapentin 800 mg tablet 800 mg PO TID 04/19/22 12/12/22 (Neurontin) ondansetron 4 mg disintegrating 4 mg PO Q4H PRN Nausea 04/19/22 12/12/22 tablet camphor-methyl salicylate-menthol 1 patch topical DAILY PRN Back Pain 12/12/22 12/12/22 topical patch cholecalciferol (vitamin D3) 25 25 mcg PO DAILY 12/12/22 12/12/22 mcg (1,000 unit) tablet (Vitamin D3) cholecalciferol (vitamin D3) 25 25 mcg PO DAILY 12/12/22 12/12/22 mcg (1,000 unit) tablet (Vitamin D3) digoxin 250 mcg (0.25 mg) tablet 500 mcg PO QAM 12/12/22 12/12/22 isosorbide mononitrate 30 mg 30 mg PO DAILY 12/12/22 12/12/22 tablet,extended release 24 hr oxycodone 5 mg tablet 5 mg PO BID 12/12/22 12/12/22 oxycodone 5 mg tablet 5 mg PO Q6HR PRN Pain (Scale Score 12/12/22 12/12/22 7-10) polyethylene glycol 3350 17 gram 17 gm PO BID 12/12/22 12/12/22 oral powder packet Previous Rx's Medication Instructions Recorded diltiazem HCl 300 mg 300 mg PO DAILY #90 caps 04/20/22 capsule,extended release 24 hr digoxin 250 mcg (0.25 mg) tablet 250 mcg PO DAILY #30 tabs 12/12/22 Allergies Allergy/AdvReac Type Severity Reaction Status Date / Time Sulfa (Sulfonamide Allergy Intermediate Rash Verified 12/16/22 16:41 Antibiotics) Review of Systems <Eric Chris DO - Last Filed: 12/17/22 07:38> Review of Systems Narrative: GENERAL: Denies chills, fatigue, malaise, fever, sweats. HEENT: Denies sinus pain, ear pain, sore throat, difficulty swallowing, dizziness. RESPIRATORY: Denies dyspnea, cough, wheezing, hemoptysis, sputum. CARDIOVASCULAR: Denies chest pain, palpitations, orthopnea, edema, GASTROINTESTINAL: Denies nausea, vomiting, abdominal pain, diarrhea, constipation, melena. : Denies dysuria, frequency, incontinence, hematuria, urinary retention. MUSCULOSKELETAL: denies weakness, joint pain, or bony pain SKIN: Denies rash, skin lesions, or other NEUROLOGIC: See HPI PSYCHIATRIC: No concerning psychosocial issues. 12 point review of systems is negative except for those stated above Patient History <Eric Chris DO - Last Filed: 12/17/22 07:38> Medical History (Updated 12/16/22 @ 20:27 by Ana M Martinez DO) Chronic pain Dementia Depression GERD (gastroesophageal reflux disease) Herpes encephalitis History of lumbar puncture (08/29/18) Hyperlipidemia Hypertension Hypoxia (10/10/18) Impaired fasting glucose Pulmonary fibrosis Stroke Surgical History History of ankle surgery (10/11/18) Social History details: two years ago number of children: 2 household members: none lives independently: Yes caregiver/support person: Yes housing: apartment other: Denies alcohol drinking or cigarette smoking. Her son of overdose 1 w Smoking Status: Former smoker alcohol intake: current Smoking Status: Former smoker alcohol intake frequency: 0-2 drinks per day Alcohol type: wine Substance Use Type: does not use Exam <Eric Chris DO - Last Filed: 12/17/22 07:38> Narrative Exam Narrative: GENERAL: [87] year old patient appears stated age. Well-developed patient, in mild distress. GCS 14 ( pleasantly confused) HEAD: Atraumatic. Normocephalic. EYES: Pupils equal round and reactive. Extraocular motions intact. No scleral icterus. No injection or drainage. ENT: Nose without bleeding, purulent drainage. Throat without erythema, tonsillar hypertrophy or exudate. Airway patent. NECK: Trachea midline. Non tender CARDIOVASCULAR: Regular rate and rhythm without murmurs, gallops, or rubs. RESPIRATORY: Clear to auscultation. Breath sounds equal bilaterally. No wheezes, rales, or rhonchi. GASTROINTESTINAL: Abdomen soft, non-tender, nondistended. EXTREMITIES: No edema or joint tenderness. BACK: Nontender without deformity or crepitance. No flank tenderness. NEURO: AOx3. cranial nerves 2-12 grossly intact SKIN: No rash or erythema of visible areas Initial Vital Signs Initial Vital Signs: Vital Signs Pulse Rate 64 12/16/22 18:11 Pulse Oximetry 99 12/16/22 18:11 <Ana M Martinez, DO - Last Filed: 12/17/22 00:11> Initial Vital Signs Initial Vital Signs: Vital Signs Pulse Rate 64 12/16/22 18:11 Pulse Oximetry 99 12/16/22 18:11 Procedures <Eric Chris, DO - Last Filed: 12/17/22 07:38> Lumbar Puncture Time Out Performed: Yes Patient Position: upright Skin Prep: 0.5% Chlorhexidine/Alcohol Local Anesthetic: lidocaine 1% Amount of anesthesia used (mL): 4 Spinal Needle Gauge: 22G Interspace Used: L4-L5 Fluid Initially Obtained: clear Complications: none Course <Eric Chris, DO - Last Filed: 12/17/22 07:38> Orders Ordered: ED Orders 12/16/22 16:20 Acetaminophen Stat Complete Blood Count AUTO DIFF Stat Comprehensive Metabolic Panel Stat Magnesium Stat Salicylate Stat 12/16/22 16:38 CT head/brain wo con Stat 12/16/22 16:44 COVID19 -Nasal RAPID Stat 12/16/22 17:04 Ethanol (ETOH) Stat 12/16/22 17:13 Digoxin Stat 12/16/22 17:30 Urinalysis and Microscopic Stat 12/16/22 18:15 CSF culture Stat Cell Count w Diff CSF Stat Glucose CSF Stat Meningitis Panel (Film Array) Stat Total Protein CSF Stat Vital Signs Vital signs: Vital Signs - 8 hr 12/16/22 18:11 12/16/22 18:13 12/16/22 18:13 Pulse Rate 64 53 L Blood Pressure 165/71 H Pulse Oximetry 99 98 12/16/22 18:30 12/16/22 18:31 12/16/22 18:31 Pulse Rate 45 L 52 L Blood Pressure 164/72 H Pulse Oximetry 96 96 12/16/22 19:00 12/16/22 19:01 12/16/22 19:01 Pulse Rate 54 L 53 L Blood Pressure 155/82 H Pulse Oximetry 98 98 12/16/22 19:22 12/16/22 19:22 12/16/22 19:30 Pulse Rate 55 L Blood Pressure 164/73 H 145/65 H Pulse Oximetry 96 12/16/22 19:30 12/16/22 20:00 12/16/22 20:01 Pulse Rate 52 L 49 L Blood Pressure 160/69 H Pulse Oximetry 96 98 12/16/22 20:01 12/16/22 20:43 12/16/22 20:45 Pulse Rate 58 L 61 Blood Pressure 192/81 H Pulse Oximetry 97 97 12/16/22 20:45 Pulse Rate 68 Blood Pressure Pulse Oximetry 97 <Ana M Martinez, DO - Last Filed: 12/17/22 00:11> Orders Ordered: ED Orders 12/16/22 16:20 Acetaminophen Stat Complete Blood Count AUTO DIFF Stat Comprehensive Metabolic Panel Stat Magnesium Stat Salicylate Stat 12/16/22 16:38 CT head/brain wo con Stat 12/16/22 16:44 COVID19 -Nasal RAPID Stat 12/16/22 17:04 Ethanol (ETOH) Stat 12/16/22 17:13 Digoxin Stat 12/16/22 17:30 Urinalysis and Microscopic Stat 12/16/22 18:15 CSF culture Stat Cell Count w Diff CSF Stat Glucose CSF Stat Meningitis Panel (Film Array) Stat Total Protein CSF Stat Vital Signs Vital signs: Vital Signs - 8 hr 12/16/22 18:11 12/16/22 18:13 12/16/22 18:13 Pulse Rate 64 53 L Blood Pressure 165/71 H Pulse Oximetry 99 98 12/16/22 18:30 12/16/22 18:31 12/16/22 18:31 Pulse Rate 45 L 52 L Blood Pressure 164/72 H Pulse Oximetry 96 96 12/16/22 19:00 12/16/22 19:01 12/16/22 19:01 Pulse Rate 54 L 53 L Blood Pressure 155/82 H Pulse Oximetry 98 98 12/16/22 19:22 12/16/22 19:22 12/16/22 19:30 Pulse Rate 55 L Blood Pressure 164/73 H 145/65 H Pulse Oximetry 96 12/16/22 19:30 12/16/22 20:00 12/16/22 20:01 Pulse Rate 52 L 49 L Blood Pressure 160/69 H Pulse Oximetry 96 98 12/16/22 20:01 12/16/22 20:43 12/16/22 20:45 Pulse Rate 58 L 61 Blood Pressure 192/81 H Pulse Oximetry 97 97 12/16/22 20:45 Pulse Rate 68 Blood Pressure Pulse Oximetry 97 MDM - Headache <Eric Chris, DO - Last Filed: 12/17/22 07:38> Lab Data 12/16/22 16:20 12/16/22 16:20 Labs: Lab Results 12/16/22 12/16/22 12/16/22 Range/Units 16:20 16:20 16:20 WBC 10.0 (4.5-11.0) X10^3/uL RBC 4.36 (4.0-5.2) X10^6/uL Hgb 13.5 (12.0-16.0) g/dL Hct 39.4 (36-46) % MCV 90.5 (80-100) fL MCH 30.9 (26-34) PG MCHC 34.2 (30-36) % RDW 13.2 (11.6-14.8) % Plt Count 255 (150-400) X10^3/uL Neut % (Auto) 69.0 (50-75) % Lymph % (Auto) 21.9 L (25-40) % [place] % (Auto) 7.1 (3-14) % Eos % (Auto) 1.3 L (2-4) % Baso % (Auto) 0.7 (0-2) % Neut # (Auto) 6900 (1563-3704) /uL Lymph # (Auto) 2200 (2375-6502) /uL [place] # (Auto) 700 (0-900) /uL Eos # (Auto) 100 (0-450) /uL Baso # (Auto) 100 (0-100) /uL Sodium 137 (137-145) mmol/L Potassium 4.0 (3.4-5.1) mmol/L Chloride 102 (98-107) mmol/L Carbon Dioxide 26 (22-32) mmol/L BUN 12 (7-17) mg/dL Creatinine 1.03 (0.52-1.04) mg/dL Estimated GFR 53 L (>60) mL/min BUN/Creatinine Ratio 11.7 (6-22) Glucose 137 H (80-110) mg/dL Calcium 10.3 H (8.4-10.2) mg/dL Magnesium 2.1 (1.6-2.3) mg/dL Total Bilirubin 0.6 (0.2-1.3) mg/dL AST 24 (14-36) IU/L ALT 15 (<35) IU/L Alkaline Phosphatase 66 (38-126) U/L Total Protein 7.8 (6.3-8.2) g/dL Albumin 4.5 (3.5-5.0) g/dL Globulin 3.3 (1.7-4.1) g/dL Albumin/Globulin Ratio 1.4 (1.0-2.8) Urine Color Urine Appearance Urine pH (4.5-8.0) Ur Specific [place] (1.000-1.035) Urine Protein (Negative) Urine Glucose (UA) (Negative) g/dL Urine Ketones (NEGATIVE) Urine Occult Blood (Negative) Urine Nitrate (Negative) Urine Bilirubin (NEGATIVE) Urine Urobilinogen (0.2) E.U./dL Ur Leukocyte Esterase (NEGATIVE) Urine RBC (0-5/HPF) Urine WBC (0-5/HPF) Ur Squamous Epith Cells (0-5/HPF) Urine Bacteria (None) Ur Culture Indicated? CSF Tube Number CSF Volume CSF Appearance (Clear) CSF Color (Colorless) CSF WBC (0-5) MONO/uL CSF RBC RBC /uL CSF Mononuclear WBCs CSF Polynuclear WBCs CSF Glucose (40-70) mg/dL CSF Total Protein (12-60) mg/dL CSF C.neoform/gat PCR (Not Detect) CSF CMV DNA (PCR) (Not Detect) CSF Enterovirus (PCR) (Not Detect) CSF E. coli (PCR) (Not Detect) CSF H. influenzae (PCR) (Not Detect) CSF HSV I (PCR) (Not Detect) CSF HSV II (PCR) (Not Detect) CSF HHV 6 (PCR) (Not Detect) CSF L.monocytogenes PCR (Not Detect) CSF N. meningitidis PCR (Not Detect) CSF Parechovirus (PCR) (Not Detect) CSF S. agalactiae (PCR) (Not Detect) CSF S. pneumoniae (PCR) (Not Detect) CSF VZV (PCR) (Not Detecte) Digoxin (0.8-2.0) ng/mL Salicylates < 1.0 (<20) mg/dL Acetaminophen < 10 (10-30) ug/mL Ethyl Alcohol ( - 10) mg/dL SARS-CoV-2 (PCR) (Negative) 12/16/22 12/16/22 12/16/22 Range/Units 16:44 17:04 17:13 WBC (4.5-11.0) X10^3/uL RBC (4.0-5.2) X10^6/uL Hgb (12.0-16.0) g/dL Hct (36-46) % MCV (80-100) fL MCH (26-34) PG MCHC (30-36) % RDW (11.6-14.8) % Plt Count (150-400) X10^3/uL Neut % (Auto) (50-75) % Lymph % (Auto) (25-40) % [place] % (Auto) (3-14) % Eos % (Auto) (2-4) % Baso % (Auto) (0-2) % Neut # (Auto) (8626-9049) /uL Lymph # (Auto) (4685-4379) /uL [place] # (Auto) (0-900) /uL Eos # (Auto) (0-450) /uL Baso # (Auto) (0-100) /uL Sodium (137-145) mmol/L Potassium (3.4-5.1) mmol/L Chloride (98-107) mmol/L Carbon Dioxide (22-32) mmol/L BUN (7-17) mg/dL Creatinine (0.52-1.04) mg/dL Estimated GFR (>60) mL/min BUN/Creatinine Ratio (6-22) Glucose (80-110) mg/dL Calcium (8.4-10.2) mg/dL Magnesium (1.6-2.3) mg/dL Total Bilirubin (0.2-1.3) mg/dL AST (14-36) IU/L ALT (<35) IU/L Alkaline Phosphatase (38-126) U/L Total Protein (6.3-8.2) g/dL Albumin (3.5-5.0) g/dL Globulin (1.7-4.1) g/dL Albumin/Globulin Ratio (1.0-2.8) Urine Color Urine Appearance Urine pH (4.5-8.0) Ur Specific [place] (1.000-1.035) Urine Protein (Negative) Urine Glucose (UA) (Negative) g/dL Urine Ketones (NEGATIVE) Urine Occult Blood (Negative) Urine Nitrate (Negative) Urine Bilirubin (NEGATIVE) Urine Urobilinogen (0.2) E.U./dL Ur Leukocyte Esterase (NEGATIVE) Urine RBC (0-5/HPF) Urine WBC (0-5/HPF) Ur Squamous Epith Cells (0-5/HPF) Urine Bacteria (None) Ur Culture Indicated? CSF Tube Number CSF Volume CSF Appearance (Clear) CSF Color (Colorless) CSF WBC (0-5) MONO/uL CSF RBC RBC /uL CSF Mononuclear WBCs CSF Polynuclear WBCs CSF Glucose (40-70) mg/dL CSF Total Protein (12-60) mg/dL CSF C.neoform/gat PCR (Not Detect) CSF CMV DNA (PCR) (Not Detect) CSF Enterovirus (PCR) (Not Detect) CSF E. coli (PCR) (Not Detect) CSF H. influenzae (PCR) (Not Detect) CSF HSV I (PCR) (Not Detect) CSF HSV II (PCR) (Not Detect) CSF HHV 6 (PCR) (Not Detect) CSF L.monocytogenes PCR (Not Detect) CSF N. meningitidis PCR (Not Detect) CSF Parechovirus (PCR) (Not Detect) CSF S. agalactiae (PCR) (Not Detect) CSF S. pneumoniae (PCR) (Not Detect) CSF VZV (PCR) (Not Detecte) Digoxin 1.1 (0.8-2.0) ng/mL Salicylates (<20) mg/dL Acetaminophen (10-30) ug/mL Ethyl Alcohol < 10 ( - 10) mg/dL SARS-CoV-2 (PCR) Negative (Negative) 12/16/22 12/16/22 12/16/22 Range/Units 17:30 18:15 18:15 WBC (4.5-11.0) X10^3/uL RBC (4.0-5.2) X10^6/uL Hgb (12.0-16.0) g/dL Hct (36-46) % MCV (80-100) fL MCH (26-34) PG MCHC (30-36) % RDW (11.6-14.8) % Plt Count (150-400) X10^3/uL Neut % (Auto) (50-75) % Lymph % (Auto) (25-40) % [place] % (Auto) (3-14) % Eos % (Auto) (2-4) % Baso % (Auto) (0-2) % Neut # (Auto) (0403-8514) /uL Lymph # (Auto) (1508-5894) /uL [place] # (Auto) (0-900) /uL Eos # (Auto) (0-450) /uL Baso # (Auto) (0-100) /uL Sodium (137-145) mmol/L Potassium (3.4-5.1) mmol/L Chloride (98-107) mmol/L Carbon Dioxide (22-32) mmol/L BUN (7-17) mg/dL Creatinine (0.52-1.04) mg/dL Estimated GFR (>60) mL/min BUN/Creatinine Ratio (6-22) Glucose (80-110) mg/dL Calcium (8.4-10.2) mg/dL Magnesium (1.6-2.3) mg/dL Total Bilirubin (0.2-1.3) mg/dL AST (14-36) IU/L ALT (<35) IU/L Alkaline Phosphatase (38-126) U/L Total Protein (6.3-8.2) g/dL Albumin (3.5-5.0) g/dL Globulin (1.7-4.1) g/dL Albumin/Globulin Ratio (1.0-2.8) Urine Color Yellow Urine Appearance Clear Urine pH 5.5 (4.5-8.0) Ur Specific [place] 1.010 (1.000-1.035) Urine Protein Negative (Negative) Urine Glucose (UA) Negative (Negative) g/dL Urine Ketones Negative (NEGATIVE) Urine Occult Blood Negative (Negative) Urine Nitrate Negative (Negative) Urine Bilirubin Negative (NEGATIVE) Urine Urobilinogen 1.0 (0.2) E.U./dL Ur Leukocyte Esterase Trace H (NEGATIVE) Urine RBC None seen (0-5/HPF) Urine WBC 0-1/hpf (0-5/HPF) Ur Squamous Epith Cells 0-1 /hpf (0-5/HPF) Urine Bacteria None seen (None) Ur Culture Indicated? Cult not indicated CSF Tube Number 3 CSF Volume 1.0 ml CSF Appearance Clear (Clear) CSF Color Colorless (Colorless) CSF WBC 1 (0-5) MONO/uL CSF RBC 2 RBC /uL CSF Mononuclear WBCs Not Reportable CSF Polynuclear WBCs Not Reportable CSF Glucose 69 (40-70) mg/dL CSF Total Protein 71 H (12-60) mg/dL CSF C.neoform/gat PCR Not detected (Not Detect) CSF CMV DNA (PCR) Not detected (Not Detect) CSF Enterovirus (PCR) Not detected (Not Detect) CSF E. coli (PCR) Not detected (Not Detect) CSF H. influenzae (PCR) Not detected (Not Detect) CSF HSV I (PCR) Not detected (Not Detect) CSF HSV II (PCR) Not detected (Not Detect) CSF HHV 6 (PCR) Not detected (Not Detect) CSF L.monocytogenes PCR Not detected (Not Detect) CSF N. meningitidis PCR Not detected (Not Detect) CSF Parechovirus (PCR) Not detected (Not Detect) CSF S. agalactiae (PCR) Not detected (Not Detect) CSF S. pneumoniae (PCR) Not detected (Not Detect) CSF VZV (PCR) Not detected (Not Detecte) Digoxin (0.8-2.0) ng/mL Salicylates (<20) mg/dL Acetaminophen (10-30) ug/mL Ethyl Alcohol ( - 10) mg/dL SARS-CoV-2 (PCR) (Negative) <Ana M Martinez, DO - Last Filed: 12/17/22 00:11> Lab Data Labs: Lab Results 12/16/22 12/16/22 12/16/22 Range/Units 16:20 16:20 16:20 WBC 10.0 (4.5-11.0) X10^3/uL RBC 4.36 (4.0-5.2) X10^6/uL Hgb 13.5 (12.0-16.0) g/dL Hct 39.4 (36-46) % MCV 90.5 (80-100) fL MCH 30.9 (26-34) PG MCHC 34.2 (30-36) % RDW 13.2 (11.6-14.8) % Plt Count 255 (150-400) X10^3/uL Neut % (Auto) 69.0 (50-75) % Lymph % (Auto) 21.9 L (25-40) % [place] % (Auto) 7.1 (3-14) % Eos % (Auto) 1.3 L (2-4) % Baso % (Auto) 0.7 (0-2) % Neut # (Auto) 6900 (4003-6445) /uL Lymph # (Auto) 2200 (1138-2569) /uL [place] # (Auto) 700 (0-900) /uL Eos # (Auto) 100 (0-450) /uL Baso # (Auto) 100 (0-100) /uL Sodium 137 (137-145) mmol/L Potassium 4.0 (3.4-5.1) mmol/L Chloride 102 (98-107) mmol/L Carbon Dioxide 26 (22-32) mmol/L BUN 12 (7-17) mg/dL Creatinine 1.03 (0.52-1.04) mg/dL Estimated GFR 53 L (>60) mL/min BUN/Creatinine Ratio 11.7 (6-22) Glucose 137 H (80-110) mg/dL Calcium 10.3 H (8.4-10.2) mg/dL Magnesium 2.1 (1.6-2.3) mg/dL Total Bilirubin 0.6 (0.2-1.3) mg/dL AST 24 (14-36) IU/L ALT 15 (<35) IU/L Alkaline Phosphatase 66 (38-126) U/L Total Protein 7.8 (6.3-8.2) g/dL Albumin 4.5 (3.5-5.0) g/dL Globulin 3.3 (1.7-4.1) g/dL Albumin/Globulin Ratio 1.4 (1.0-2.8) Urine Color Urine Appearance Urine pH (4.5-8.0) Ur Specific [place] (1.000-1.035) Urine Protein (Negative) Urine Glucose (UA) (Negative) g/dL Urine Ketones (NEGATIVE) Urine Occult Blood (Negative) Urine Nitrate (Negative) Urine Bilirubin (NEGATIVE) Urine Urobilinogen (0.2) E.U./dL Ur Leukocyte Esterase (NEGATIVE) Urine RBC (0-5/HPF) Urine WBC (0-5/HPF) Ur Squamous Epith Cells (0-5/HPF) Urine Bacteria (None) Ur Culture Indicated? CSF Tube Number CSF Volume CSF Appearance (Clear) CSF Color (Colorless) CSF WBC (0-5) MONO/uL CSF RBC RBC /uL CSF Mononuclear WBCs CSF Polynuclear WBCs CSF Glucose (40-70) mg/dL CSF Total Protein (12-60) mg/dL CSF C.neoform/gat PCR (Not Detect) CSF CMV DNA (PCR) (Not Detect) CSF Enterovirus (PCR) (Not Detect) CSF E. coli (PCR) (Not Detect) CSF H. influenzae (PCR) (Not Detect) CSF HSV I (PCR) (Not Detect) CSF HSV II (PCR) (Not Detect) CSF HHV 6 (PCR) (Not Detect) CSF L.monocytogenes PCR (Not Detect) CSF N. meningitidis PCR (Not Detect) CSF Parechovirus (PCR) (Not Detect) CSF S. agalactiae (PCR) (Not Detect) CSF S. pneumoniae (PCR) (Not Detect) CSF VZV (PCR) (Not Detecte) Digoxin (0.8-2.0) ng/mL Salicylates < 1.0 (<20) mg/dL Acetaminophen < 10 (10-30) ug/mL Ethyl Alcohol ( - 10) mg/dL SARS-CoV-2 (PCR) (Negative) 12/16/22 12/16/22 12/16/22 Range/Units 16:44 17:04 17:13 WBC (4.5-11.0) X10^3/uL RBC (4.0-5.2) X10^6/uL Hgb (12.0-16.0) g/dL Hct (36-46) % MCV (80-100) fL MCH (26-34) PG MCHC (30-36) % RDW (11.6-14.8) % Plt Count (150-400) X10^3/uL Neut % (Auto) (50-75) % Lymph % (Auto) (25-40) % [place] % (Auto) (3-14) % Eos % (Auto) (2-4) % Baso % (Auto) (0-2) % Neut # (Auto) (3102-1738) /uL Lymph # (Auto) (3496-3732) /uL [place] # (Auto) (0-900) /uL Eos # (Auto) (0-450) /uL Baso # (Auto) (0-100) /uL Sodium (137-145) mmol/L Potassium (3.4-5.1) mmol/L Chloride (98-107) mmol/L Carbon Dioxide (22-32) mmol/L BUN (7-17) mg/dL Creatinine (0.52-1.04) mg/dL Estimated GFR (>60) mL/min BUN/Creatinine Ratio (6-22) Glucose (80-110) mg/dL Calcium (8.4-10.2) mg/dL Magnesium (1.6-2.3) mg/dL Total Bilirubin (0.2-1.3) mg/dL AST (14-36) IU/L ALT (<35) IU/L Alkaline Phosphatase (38-126) U/L Total Protein (6.3-8.2) g/dL Albumin (3.5-5.0) g/dL Globulin (1.7-4.1) g/dL Albumin/Globulin Ratio (1.0-2.8) Urine Color Urine Appearance Urine pH (4.5-8.0) Ur Specific [place] (1.000-1.035) Urine Protein (Negative) Urine Glucose (UA) (Negative) g/dL Urine Ketones (NEGATIVE) Urine Occult Blood (Negative) Urine Nitrate (Negative) Urine Bilirubin (NEGATIVE) Urine Urobilinogen (0.2) E.U./dL Ur Leukocyte Esterase (NEGATIVE) Urine RBC (0-5/HPF) Urine WBC (0-5/HPF) Ur Squamous Epith Cells (0-5/HPF) Urine Bacteria (None) Ur Culture Indicated? CSF Tube Number CSF Volume CSF Appearance (Clear) CSF Color (Colorless) CSF WBC (0-5) MONO/uL CSF RBC RBC /uL CSF Mononuclear WBCs CSF Polynuclear WBCs CSF Glucose (40-70) mg/dL CSF Total Protein (12-60) mg/dL CSF C.neoform/gat PCR (Not Detect) CSF CMV DNA (PCR) (Not Detect) CSF Enterovirus (PCR) (Not Detect) CSF E. coli (PCR) (Not Detect) CSF H. influenzae (PCR) (Not Detect) CSF HSV I (PCR) (Not Detect) CSF HSV II (PCR) (Not Detect) CSF HHV 6 (PCR) (Not Detect) CSF L.monocytogenes PCR (Not Detect) CSF N. meningitidis PCR (Not Detect) CSF Parechovirus (PCR) (Not Detect) CSF S. agalactiae (PCR) (Not Detect) CSF S. pneumoniae (PCR) (Not Detect) CSF VZV (PCR) (Not Detecte) Digoxin 1.1 (0.8-2.0) ng/mL Salicylates (<20) mg/dL Acetaminophen (10-30) ug/mL Ethyl Alcohol < 10 ( - 10) mg/dL SARS-CoV-2 (PCR) Negative (Negative) 12/16/22 12/16/22 12/16/22 Range/Units 17:30 18:15 18:15 WBC (4.5-11.0) X10^3/uL RBC (4.0-5.2) X10^6/uL Hgb (12.0-16.0) g/dL Hct (36-46) % MCV (80-100) fL MCH (26-34) PG MCHC (30-36) % RDW (11.6-14.8) % Plt Count (150-400) X10^3/uL Neut % (Auto) (50-75) % Lymph % (Auto) (25-40) % [place] % (Auto) (3-14) % Eos % (Auto) (2-4) % Baso % (Auto) (0-2) % Neut # (Auto) (6814-8345) /uL Lymph # (Auto) (1857-1347) /uL [place] # (Auto) (0-900) /uL Eos # (Auto) (0-450) /uL Baso # (Auto) (0-100) /uL Sodium (137-145) mmol/L Potassium (3.4-5.1) mmol/L Chloride (98-107) mmol/L Carbon Dioxide (22-32) mmol/L BUN (7-17) mg/dL Creatinine (0.52-1.04) mg/dL Estimated GFR (>60) mL/min BUN/Creatinine Ratio (6-22) Glucose (80-110) mg/dL Calcium (8.4-10.2) mg/dL Magnesium (1.6-2.3) mg/dL Total Bilirubin (0.2-1.3) mg/dL AST (14-36) IU/L ALT (<35) IU/L Alkaline Phosphatase (38-126) U/L Total Protein (6.3-8.2) g/dL Albumin (3.5-5.0) g/dL Globulin (1.7-4.1) g/dL Albumin/Globulin Ratio (1.0-2.8) Urine Color Yellow Urine Appearance Clear Urine pH 5.5 (4.5-8.0) Ur Specific [place] 1.010 (1.000-1.035) Urine Protein Negative (Negative) Urine Glucose (UA) Negative (Negative) g/dL Urine Ketones Negative (NEGATIVE) Urine Occult Blood Negative (Negative) Urine Nitrate Negative (Negative) Urine Bilirubin Negative (NEGATIVE) Urine Urobilinogen 1.0 (0.2) E.U./dL Ur Leukocyte Esterase Trace H (NEGATIVE) Urine RBC None seen (0-5/HPF) Urine WBC 0-1/hpf (0-5/HPF) Ur Squamous Epith Cells 0-1 /hpf (0-5/HPF) Urine Bacteria None seen (None) Ur Culture Indicated? Cult not indicated CSF Tube Number 3 CSF Volume 1.0 ml CSF Appearance Clear (Clear) CSF Color Colorless (Colorless) CSF WBC 1 (0-5) MONO/uL CSF RBC 2 RBC /uL CSF Mononuclear WBCs Not Reportable CSF Polynuclear WBCs Not Reportable CSF Glucose 69 (40-70) mg/dL CSF Total Protein 71 H (12-60) mg/dL CSF C.neoform/gat PCR Not detected (Not Detect) CSF CMV DNA (PCR) Not detected (Not Detect) CSF Enterovirus (PCR) Not detected (Not Detect) CSF E. coli (PCR) Not detected (Not Detect) CSF H. influenzae (PCR) Not detected (Not Detect) CSF HSV I (PCR) Not detected (Not Detect) CSF HSV II (PCR) Not detected (Not Detect) CSF HHV 6 (PCR) Not detected (Not Detect) CSF L.monocytogenes PCR Not detected (Not Detect) CSF N. meningitidis PCR Not detected (Not Detect) CSF Parechovirus (PCR) Not detected (Not Detect) CSF S. agalactiae (PCR) Not detected (Not Detect) CSF S. pneumoniae (PCR) Not detected (Not Detect) CSF VZV (PCR) Not detected (Not Detecte) Digoxin (0.8-2.0) ng/mL Salicylates (<20) mg/dL Acetaminophen (10-30) ug/mL Ethyl Alcohol ( - 10) mg/dL SARS-CoV-2 (PCR) (Negative) MDM Narrative Medical decision making narrative: Dr. Martinez-patient signed out to me by Dr. Chris I have seen evaluated patient myself. Patient presents today for a headache. She has had altered mental status this week is her 2nd visit. Initially thought to be medication related secondary to digoxin and Percocet. She initially clear cleared. 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 LP was done and is negative for meningitis. She is no evidence of infection or sepsis. Blood work has been reviewed by myself and does not have any clinical significant abnormalities. Discharge Plan Departure Patient Disposition: Home Clinical Impression: Acute confusion Instructions: Delirium Activity Restrictions/Additional Instructions: *You have been diagnosed with confusion *What to do: Today complete workup including lumbar puncture which did not show any evidence of meningitis. Probably confused today due to medication. *Continue to take medications as directed Avoid Percocet *Follow up with your primary care provider in 2-3 days or call [phone] *Return to ER if you should have increased confusion, weakness, or any new, worsening or concerning symptoms Prescriptions: No Action nystatin 100,000 unit/gram Powder 1 applic TOPICAL BID Rx Instructions: right groin rash until resolve, breast escitalopram oxalate 20 mg tablet 20 mg PO DAILY Patient Comments: TK 1 T PO QD potassium chloride 10 mEq Tablet Extended Release 20 meq PO BID omeprazole 20 mg capsule,delayed release(DR/EC) 20 mg PO DAILY Patient Comments: TK 1 C PO QD isosorbide mononitrate 30 mg tablet extended release 24 hr 30 mg PO DAILY digoxin 250 mcg (0.25 mg) tablet 500 mcg PO QAM Patient Comments: recent increase 11/17/22 Salonpas Adhesive Patch,Medicated 1 patch TOPICAL DAILY PRN (Reason: Back Pain) Patient Comments: [NO ORIGINAL SIG] Rx Instructions: to low back, on for 12 hours, off x 12 hours cholecalciferol (vitamin D3) [Vitamin D3] 25 mcg (1,000 unit) tablet 25 mcg PO DAILY oxycodone 5 mg tablet 5 mg PO Q6HR PRN (Reason: Pain (Scale Score 7-10)) cholecalciferol (vitamin D3) [Vitamin D3] 25 mcg (1,000 unit) tablet 25 mcg PO DAILY polyethylene glycol 3350 17 gram powder in packet 17 gm PO BID oxycodone 5 mg tablet 5 mg PO BID digoxin 250 mcg (0.25 mg) tablet 250 mcg PO DAILY Qty: 30 0RF furosemide 20 mg Tablet 80 mg PO DAILY rosuvastatin 40 mg Tablet 20 mg PO DAILY Xarelto 20 mg Tablet 20 mg PO DAILY acetaminophen 500 mg tablet 1,000 mg PO TID calcium carbonate [Oyster Shell Calcium 500] 500 mg calcium (1,250 mg) tablet 500 mg PO BID gabapentin [Neurontin] 800 mg tablet 800 mg PO TID ferrous sulfate [FeroSul] 325 mg (65 mg iron) tablet 325 mg PO SEEINSTR Rx Instructions: Take one tablet every Monday, Monday, and Monday. docusate sodium 100 mg capsule 200 mg PO QPM albuterol sulfate 90 mcg/actuation HFA aerosol inhaler 2 puff INHALATION TID ondansetron 4 mg tablet,disintegrating 4 mg PO Q4H PRN (Reason: Nausea) fluticasone propionate 50 mcg/actuation spray,suspension 50 mcg INTRANASAL QAM diltiazem HCl 300 mg capsule,extended release 24hr 300 mg PO DAILY Qty: 90 0RF Referrals: Pooja Root MD [Primary Care Provider] - Stand Alone Forms: Patient Portal/API
[2022-12-16 18:42] LABS: Glucose CSF 69 mg/dL (40-70); Total Protein CSF 71 mg/dL (12-60)
[2022-12-16 19:02] LABS: Appearance CSF Clear (Clear); CSF Tube Number 3; CSF Tube Volume 1.0 mL; Color CSF Colorless (Colorless)
[2022-12-16 19:03] LABS: Red Blood Cell CSF 2 RBC /uL; White Blood Cell CSF 1 MONO/uL (0-5)
[2022-12-16 20:10] LABS: Cryptococcus neoformans/gattii Not Detected (Not Detect); Enterovirus Not Detected (Not Detect); Escherichia coli K1 Not Detected (Not Detect); Haemophilus influenzae Not Detected (Not Detect); Herpes simplex virus 1 Not Detected (Not Detect); Herpes simplex virus 2 Not Detected (Not Detect); Human herpesvirus 6 Not Detected (Not Detect); Human parechovirus Not Detected (Not Detect); Listeria monocytogenes Not Detected (Not Detect); Neisseria meningitidis Not Detected (Not Detect); Streptococcus agalactiae Not Detected (Not Detect); Streptococcus pneumoniae Not Detected (Not Detect); Varicella Zoster Virus Not Detected (Not Detecte)
--- NOTE | 2022-12-16 20:40 | PC.NURSE ---
Patient with what appears to be some baseline confusion. Is pleasant and cooperative with care but does require frequent reminders of why she's in the ED, that we're aware that she's here, and that we will get her home when it's time to go.
== END 2022-12-16 20:51 | disposition home or self-care (01) ==
PROVIDERS: Emergency Medicine; Emergency Provider Emergency Medicine; Family Provider Nurse Practitioner Family; PCP Internal Medicine
DX: R41.0 Disorientation, unspecified (principal); R51.9 Headache, unspecified; Z20.822 Contact with and (suspected) exposure to COVID-19
CPT/HCPCS: 36415; 70450; 80053; 80162; 80320; 80329; 81001; 82945; 83735; 84157; 85025; 87070; 87205; 87635; 87798; 89051; 99284; C9803; G0480

== ENCOUNTER → 2022-12-20 12:14 | Outpatient (ROUT) | payer OTHER, SELFPAY ==
[2022-04-19 15:55] VITALS: BMI 30.4
[2022-12-20 12:21] LABS: Appearance Urine UA CLEAR; Bilirubin Urine UA NEGATIVE (NEGATIVE); Color Urine UA YELLOW; Glucose Urine UA NEGATIVE (Negative); Ketones Urine UA NEGATIVE (NEGATIVE); Leukocyte Esterase Urine UA NEGATIVE (NEGATIVE); Nitrite Urine UA NEGATIVE (Negative); Occult Blood Urine UA NEGATIVE (Negative); Protein Urine UA NEGATIVE (Negative)
[2022-12-20 12:26] LABS: pH Urine UA 6.5 (4.5-8.0)
[2022-12-20 12:55] LABS: Bacteria Urine None Seen; Culture Indicated Urine Cult Not Indicated; RBC Urine 1-5/HPF (0-5/HPF); Squamous Epithelial Cell Urine 1-5 /HPF (0-5/HPF); WBC Urine 0-1/HPF (0-5/HPF)
== END ==
PROVIDERS: Family Provider Nurse Practitioner Family; PCP Internal Medicine; Visit Provider Nurse Practitioner Family
DX: R30.9 Painful micturition, unspecified (principal)
CPT/HCPCS: 81001

== ENCOUNTER → 2022-12-26 12:44 | Outpatient (CLI) | payer OTHER, SELFPAY ==
[2022-04-19 15:55] VITALS: BMI 30.4
--- NOTE | 2022-12-26 | DI.MRI.S_ITS ---
PROCEDURE: MR HEAD/BRAIN WO CON INDICATIONS: Disorientation, Altered mental status, unspecified TECHNIQUE: Non-contrast axial T1 spin echo, axial T2 fast spin echo, sagittal and axial FLAIR, coronal T2 fast spin echo, axial gradient echo, axial diffusion and ADC through the brain. COMPARISON: [facility], CT, CT HEAD/BRAIN WO CON, 12/16/2022, 16:40. [facility], MR, MR HEAD/BRAIN WO CON, 02/12/2022, 9:01. FINDINGS: Image quality: This examination is limited by involuntary motion artifact. CSF spaces: Ventricles appear symmetric in size and shape. Basal cisterns are patent. No extra-axial fluid collections. Brain: No intracranial bleeds or mass effects. There is cerebral volume loss for age. There are periventricular and deep white matter chronic small vessel ischemic changes. Brainstem appears normal. Diffusion-weighted images show no acute ischemic insults. Areas of chronic lacunar infarction can be seen. Normal intravascular flow voids are present. Skull and face: Calvarial bone marrow is normal in signal. Orbits are normal. Note is made of bilateral lens replacements. Sinuses: Sinuses and mastoids are clear. IMPRESSION: No findings of acute or subacute infarction can be seen. Note is made of age-appropriate brain parenchymal volume loss and chronic small vessel ischemic changes. Dictated by: Wilian Rivas M.D. on 12/26/2022 at 16:41 Approved by: Wilian Rivas M.D. on 12/26/2022 at 16:44
== END ==
PROVIDERS: Family Provider Nurse Practitioner Family; PCP Internal Medicine; Referring Provider Registered Nurse; Visit Provider Registered Nurse
DX: R41.0 Disorientation, unspecified (principal); R41.82 Altered mental status, unspecified
CPT/HCPCS: 70551

== ENCOUNTER → 2022-12-28 07:13 | Outpatient (ROUT) | payer OTHER, SELFPAY ==
[2022-04-19 15:55] VITALS: BMI 30.4
[2022-12-28 08:52] LABS: Digoxin 0.7 ng/mL (0.8-2.0)
== END ==
PROVIDERS: Family Provider Nurse Practitioner Family; PCP Internal Medicine; Visit Provider Nurse Practitioner Family
DX: I48.19 Other persistent atrial fibrillation (principal); Z79.899 Other long term (current) drug therapy
CPT/HCPCS: 36415; 80162

== ENCOUNTER 2023-01-07 09:01 | Emergency (ER) | payer OTHER, SELFPAY ==
[2022-04-19 15:55] VITALS: BMI 30.4
--- NOTE | 2023-01-07 09:04 | DI.RAD.S_ITS ---
PROCEDURE: XR ACUTE ABDOMEN SERIES INDICATIONS: Abdominal pain, bloating TECHNIQUE: One view chest and two views of the abdomen were acquired. COMPARISON: [facility], CR, XR CHEST 1V, 09/16/2022, 16:49. FINDINGS: Surgical changes and devices: None. Chest: Lungs appear clear. Prominent lung volumes. Heart size is normal. No pleural effusions. No pneumoperitoneum. Abdomen: Scattered small bowel and colonic gas. No dilated loops of bowel seen. No suspicious calcifications. Visualized solid organ contours appear normal. Bones: No suspicious bony lesions. IMPRESSION: No acute cardiopulmonary abnormality. Nonobstructive bowel gas pattern. Dictated by: Matthieu Gibson M.D. on 01/07/2023 at 9:59 Approved by: Matthieu Gibson M.D. on 01/07/2023 at 10:02
[2023-01-07 09:09] VITALS: BP 142/76; PULSE 90; RESP 18; TEMP 36.7; O2SAT 95; BMI 27.3
--- NOTE | 2023-01-07 09:09 | ED_ITS ---
HPI - General Adult General Chief complaint: Abdominal Pain Stated complaint: Abdominal pressure Time Seen by Provider: 01/07/23 09:04 History of Present Illness HPI narrative: 87-year-old female former smoker with history of dementia, encephalopathy, AFib, hypertension hyperlipidemia is a DNR with limited interventions and presents by EMS for evaluation of bloating and some abdominal discomfort today. The report largely comes from nursing through EMS who state that she has been having bowel movements and had not been reporting any discomfort until today. She is pleasantly confused and at her reported neurologic baseline. She states that she has no fever or chills, she denies nausea or vomiting. She is not having chest pain or any trouble breathing. She denies any trouble urinating. Related Data Home Medications Medication Instructions Recorded Confirmed furosemide 20 mg tablet 80 mg PO DAILY 12/07/17 12/12/22 escitalopram oxalate 20 mg tablet 20 mg PO DAILY 10/10/18 12/12/22 nystatin 100,000 unit/gram topical 1 applic topical BID 10/10/18 12/12/22 powder omeprazole 20 mg capsule,delayed 20 mg PO DAILY 10/10/18 12/12/22 release potassium chloride 10 mEq 20 meq PO BID 10/10/18 12/12/22 tablet,extended release rivaroxaban 20 mg tablet (Xarelto) 20 mg PO DAILY 01/09/19 12/12/22 rosuvastatin 40 mg tablet 20 mg PO DAILY 01/09/19 12/12/22 acetaminophen 500 mg tablet 1,000 mg PO TID 04/19/22 12/12/22 albuterol sulfate 90 mcg/actuation 2 puff inhalation TID 04/19/22 12/12/22 aerosol inhaler calcium carbonate 500 mg calcium 500 mg PO BID 04/19/22 12/12/22 (1,250 mg) tablet (Oyster Shell Calcium 500) docusate sodium 100 mg capsule 200 mg PO QPM 04/19/22 12/12/22 ferrous sulfate 325 mg (65 mg 325 mg PO SEEINSTR 04/19/22 12/12/22 iron) tablet (FeroSul) fluticasone propionate 50 50 mcg intranasal QAM 04/19/22 12/12/22 mcg/actuation nasal spray,suspension gabapentin 800 mg tablet 800 mg PO TID 04/19/22 12/12/22 (Neurontin) ondansetron 4 mg disintegrating 4 mg PO Q4H PRN Nausea 04/19/22 12/12/22 tablet camphor-methyl salicylate-menthol 1 patch topical DAILY PRN Back Pain 12/12/22 12/12/22 topical patch cholecalciferol (vitamin D3) 25 25 mcg PO DAILY 12/12/22 12/12/22 mcg (1,000 unit) tablet (Vitamin D3) cholecalciferol (vitamin D3) 25 25 mcg PO DAILY 12/12/22 12/12/22 mcg (1,000 unit) tablet (Vitamin D3) digoxin 250 mcg (0.25 mg) tablet 500 mcg PO QAM 12/12/22 12/12/22 isosorbide mononitrate 30 mg 30 mg PO DAILY 12/12/22 12/12/22 tablet,extended release 24 hr oxycodone 5 mg tablet 5 mg PO BID 12/12/22 12/12/22 oxycodone 5 mg tablet 5 mg PO Q6HR PRN Pain (Scale Score 12/12/22 12/12/22 7-10) polyethylene glycol 3350 17 gram 17 gm PO BID 12/12/22 12/12/22 oral powder packet Previous Rx's Medication Instructions Recorded diltiazem HCl 300 mg 300 mg PO DAILY #90 caps 04/20/22 capsule,extended release 24 hr digoxin 250 mcg (0.25 mg) tablet 250 mcg PO DAILY #30 tabs 12/12/22 Allergies Allergy/AdvReac Type Severity Reaction Status Date / Time Sulfa (Sulfonamide Allergy Intermediate Rash Verified 12/16/22 16:41 Antibiotics) Review of Systems Review of Systems Narrative: GENERAL: Denies chills, fatigue, malaise, fever, sweats. HEENT: Denies sinus pain, ear pain, sore throat, difficulty swallowing, dizziness. RESPIRATORY: Denies dyspnea, cough, wheezing, hemoptysis, sputum. CARDIOVASCULAR: Denies chest pain, palpitations, orthopnea, edema, GASTROINTESTINAL: See HPI : Denies dysuria, frequency, incontinence, hematuria, urinary retention. MUSCULOSKELETAL: denies weakness, joint pain, or bony pain SKIN: Denies rash, skin lesions, or other NEUROLOGIC: Denies weakness, headache, numbness, change in speech, confusion, seizures, incoordination. PSYCHIATRIC: No concerning psychosocial issues. 12 point review of systems is negative except for those stated above Patient History Medical History (Updated 01/07/23 @ 10:33 by Eric Chris DO) Dementia Hypoxia (10/10/18) History of lumbar puncture (08/29/18) GERD (gastroesophageal reflux disease) Depression Herpes encephalitis Impaired fasting glucose Stroke Hyperlipidemia Hypertension Chronic pain Pulmonary fibrosis Surgical History History of ankle surgery (10/11/18) Social History details: two years ago number of children: 2 household members: none lives independently: Yes caregiver/support person: Yes housing: apartment other: Denies alcohol drinking or cigarette smoking. Her son of overdose 1 w Smoking Status: Former smoker alcohol intake: current Smoking Status: Former smoker alcohol intake frequency: 0-2 drinks per day Alcohol type: wine Substance Use Type: does not use Exam Narrative Exam Narrative: GEN: 87-year-old female in no obvious distress, sitting upright, smiling, pleasantly confused, GCS 14 EYES: Pupils are equal, round, and reactive to light and accommodation. Extraoccular muscles are intact bilaterally. There is no subconjunctival hemorrhage or exudate. CHEST: Lungs are clear to auscultation bilaterally and free of wheezes, rales, or rhonchi. Heart rate is regular rhythm, there are no murmurs, clicks, rubs, or gallops. There is no chest wall tenderness. ABD: Abdomen is soft and nontender. There is no guarding or rebound. Bowel sounds are normal in all 4 quadrants. There is no mass or organomegaly. Bowel sounds present in all 4 quadrants EXT: Full painless ROM of all extremities with no loss of sensation or strength. SKIN: Warm, pink, and dry. No erythema or rash Initial Vital Signs Initial Vital Signs: Vital Signs Temperature 98.0 F 01/07/23 09:09 Pulse Rate 90 01/07/23 09:09 Respiratory Rate 18 01/07/23 09:09 Blood Pressure 142/76 H 01/07/23 09:09 Pulse Oximetry 95 01/07/23 09:09 Oxygen Delivery Method Room Air 01/07/23 09:09 Course Orders Ordered: ED Orders 01/07/23 09:04 XR acute abdomen series Stat 01/07/23 10:13 Covid-19 + FLU A/B + RSV - PCR Stat Vital Signs Vital signs: Vital Signs - 8 hr 01/07/23 09:09 01/07/23 09:46 01/07/23 10:36 Temperature 98.0 F Pulse Rate 90 84 85 Respiratory Rate 18 18 Blood Pressure 142/76 H 141/68 H 140/110 H Pulse Oximetry 95 97 100 Oxygen Delivery Method Room Air Room Air Room Air Medical Decision Making [facility] Narrative Medical decision making narrative: [87] year old patient presents with report of abdominal bloating Multiple etiologies for patient's symptoms considered including, but not limited to: [Constipation versus obstruction versus other] Prior Charts reviewed in our EMR Primary Historian: patient, nursing staff through EMS Imaging reviewed: Nonspecific bowel gas pattern, no obstruction Patient is reassuring history and physical exam, is in very little if any perceived discomfort. Imaging is unremarkable. She did not give a urine sample and attempts were made at straight cath but it was very uncomfortable for the patient and we elected to stop performing an invasive procedure in a patient who has paperwork demonstrating desire for only limited intervention. No indication for further workup at this point, vital signs are stable, no signs of sepsis, abdomen soft, minimally tender, nonspecific bowel gas pattern Return precautions discussed with patient/family whom verbalize understanding of diagnosis and plan Discharge Plan Departure Patient Disposition: Home Clinical Impression: Abdominal pain Instructions: DI for Abdominal Pain-Adult Activity Restrictions/Additional Instructions: *You have been diagnosed with [abdominal pain] * As we discussed your history and physical exam as well imaging are very reassuring. There is no evidence of any severe diagnoses that would require a specific or immediate intervention. *What to do: *Please continue to take your regular medications as directed. *Please follow up with your primary care provider in 2-3 days, call for an appointment. Let them know you were seen in the Emergency Department and that we ask that you be seen in follow up. We will electronically transmit a record of today's note if your PCP is in our system *Please consider a clear liquid diet for the next 24-48 hours and then slowly advance to regular as tolerated. Also, try to avoid alcohol, nicotine, caffeine, spicy, acidic or fatty foods as this may worsen your symptoms *If you do not have a primary care provider please contact the [facility] Resource line at [phone]. They will ask some questions about your medical history and help get you set up with a doctor in the community. *Return to Emergency Department if you should have any new, worsening or concerning symptoms, such as [fever greater than 101 F, shaking chills, worsening pain, persistent vomiting or other bothersome symptoms] Prescriptions: No Action nystatin 100,000 unit/gram Powder 1 applic TOPICAL BID Rx Instructions: right groin rash until resolve, breast escitalopram oxalate 20 mg tablet 20 mg PO DAILY Patient Comments: TK 1 T PO QD potassium chloride 10 mEq Tablet Extended Release 20 meq PO BID omeprazole 20 mg capsule,delayed release(DR/EC) 20 mg PO DAILY Patient Comments: TK 1 C PO QD isosorbide mononitrate 30 mg tablet extended release 24 hr 30 mg PO DAILY digoxin 250 mcg (0.25 mg) tablet 500 mcg PO QAM Patient Comments: recent increase 11/17/22 Salonpas Adhesive Patch,Medicated 1 patch TOPICAL DAILY PRN (Reason: Back Pain) Patient Comments: [NO ORIGINAL SIG] Rx Instructions: to low back, on for 12 hours, off x 12 hours cholecalciferol (vitamin D3) [Vitamin D3] 25 mcg (1,000 unit) tablet 25 mcg PO DAILY oxycodone 5 mg tablet 5 mg PO Q6HR PRN (Reason: Pain (Scale Score 7-10)) cholecalciferol (vitamin D3) [Vitamin D3] 25 mcg (1,000 unit) tablet 25 mcg PO DAILY polyethylene glycol 3350 17 gram powder in packet 17 gm PO BID oxycodone 5 mg tablet 5 mg PO BID digoxin 250 mcg (0.25 mg) tablet 250 mcg PO DAILY Qty: 30 0RF furosemide 20 mg Tablet 80 mg PO DAILY rosuvastatin 40 mg Tablet 20 mg PO DAILY Xarelto 20 mg Tablet 20 mg PO DAILY acetaminophen 500 mg tablet 1,000 mg PO TID calcium carbonate [Oyster Shell Calcium 500] 500 mg calcium (1,250 mg) tablet 500 mg PO BID gabapentin [Neurontin] 800 mg tablet 800 mg PO TID ferrous sulfate [FeroSul] 325 mg (65 mg iron) tablet 325 mg PO SEEINSTR Rx Instructions: Take one tablet every Monday, Monday, and Monday. docusate sodium 100 mg capsule 200 mg PO QPM albuterol sulfate 90 mcg/actuation HFA aerosol inhaler 2 puff INHALATION TID ondansetron 4 mg tablet,disintegrating 4 mg PO Q4H PRN (Reason: Nausea) fluticasone propionate 50 mcg/actuation spray,suspension 50 mcg INTRANASAL QAM diltiazem HCl 300 mg capsule,extended release 24hr 300 mg PO DAILY Qty: 90 0RF Referrals: Pooja Root MD [Primary Care Provider] - Stand Alone Forms: Patient Portal/API
[2023-01-07 09:46] VITALS: BP 141/68; PULSE 84; O2SAT 97
[2023-01-07 10:36] VITALS: BP 140/110; PULSE 85; RESP 18; O2SAT 100
[2023-01-07 11:00] VITALS: BP 149/66; PULSE 73; O2SAT 97
[2023-01-07 11:01] LABS: Influenza A - CEPHEID Flu A NEGATIVE (NEGATIVE); Influenza B - CEPHEID Flu B NEGATIVE (NEGATIVE); Respiratory Syncytial Virus Negative (Negative)
[2023-01-07 12:02] LABS: COVID-19 CEPHEID 4-PLEX PCR Negative (Negative)
== END 2023-01-07 11:47 | disposition home or self-care (01) ==
PROVIDERS: Emergency Provider Emergency Medicine; Family Provider Nurse Practitioner Family; PCP Internal Medicine
DX: R10.9 Unspecified abdominal pain (principal); Z20.822 Contact with and (suspected) exposure to COVID-19
CPT/HCPCS: 0241U; 36415; 74022; 99283

== ENCOUNTER → 2023-02-10 12:10 | Outpatient (ROUT) | payer OTHER, MEDICARE, SELFPAY ==
[2022-04-19 15:55] VITALS: BMI 30.4
[2023-02-10 12:39] LABS: Digoxin 2.5 ng/mL (0.8-2.0)
== END ==
PROVIDERS: Family Provider Nurse Practitioner Family; PCP Internal Medicine; Visit Provider Family Medicine
DX: G31.1 Senile degeneration of brain, not elsewhere classified (principal); R63.0 Anorexia; I48.91 Unspecified atrial fibrillation
CPT/HCPCS: 80162